=== PATIENT | male | born 1935 | race Caucasian/White ===

== ENCOUNTER 2016-09-05 13:46 | Inpatient (IN) | payer MEDICARE, OTHER ==
[2016-09-05] MEDS ORDERED: SODIUM CHLORIDE 0.9% 1,000 ML IV STA (13:59)
[2016-09-05] MEDS ORDERED: PANTOPRAZOLE 40 MG/10 ML VIAL IVP STA (13:59)
--- NOTE | 2016-09-05 14:01 | ED ---
General Adult HPI - General Chief complaint: GI Bleed Stated complaint: GI bleed, vomiting blood Time Seen by Provider: 09/05/16 13:52 Source: patient, EMS, RN notes reviewed Mode of arrival: EMS Limitations: no limitations - History of Present Illness Initial comments: Patient is a pleasant 81-year-old male presenting to the emergency department with coffee-ground emesis. Patient is a poor historian. Symptoms onset was yesterday and continued today. Patient admits to having some fatigue however states this is chronic and unchanged. No dyspnea. No weakness. Patient may have had similar symptoms around 10 years ago. Patient denies taking any blood thinners. - Related Data Home Medications Medication Instructions Recorded Confirmed Atorvastatin [Lipitor] 10 mg PO DAILY 04/01/15 09/05/16 Aspirin EC [Ecotrin Low Dose] 81 mg PO DAILY 10/16/15 09/05/16 Cholecalciferol [Vitamin D3] 1,000 unit PO DAILY 10/16/15 09/05/16 Multivitamins, Thera [Multivitamin] 1 tab PO DAILY 10/16/15 09/05/16 Albuterol Nebulized [Ventolin 2.5 mg INHALATION RT-QID PRN 04/10/16 09/05/16 Nebulized] [place]-3 Fatty Acids/Fish Oil [Fish 1 cap PO DAILY 05/23/16 09/05/16 Oil 1,000 mg Softgel] EPINEPHrine [Epipen 2-Lorenzo] 0.3 mg IM ONCE PRN 09/05/16 09/05/16 Ipratropium-Albuterol Nebulize 3 ml INHALATION RT-TID 09/05/16 09/05/16 [Duoneb 0.5 mg-3 mg/3 ml Soln] LORazepam [Ativan] 0.5 mg PO BID 09/05/16 09/05/16 Omeprazole [PriLOSEC] 20 mg PO DAILY 09/05/16 09/05/16 amLODIPine [Norvasc] 5 mg PO DAILY 09/05/16 09/05/16 traMADol HCl [Ultram] 50 mg PO Q6H PRN 09/05/16 09/05/16 Previous Rx's Medication Instructions Recorded Tamsulosin [Flomax] 0.4 mg PO HS cap.er.24h 10/19/15 Allergies Allergy/AdvReac Type Severity Reaction Status Date / Time Penicillins Allergy Rash/Hives Verified 09/05/16 14:44 Review of Systems ROS Statement: Those systems with pertinent positive or pertinent negative responses have been documented in the HPI. ROS Other: All systems not noted in ROS Statement are negative. Constitutional: Denies: fever Eyes: Denies: eye pain ENT: Denies: ear pain Respiratory: Denies: cough, dyspnea Cardiovascular: Denies: chest pain Endocrine: Reports: fatigue Gastrointestinal: Reports: other (Coffee-ground emesis) Genitourinary: Denies: dysuria Musculoskeletal: Denies: back pain Skin: Denies: rash Neurological: Denies: weakness Past Medical History Past Medical History: Coronary Artery Disease (CAD), CVA/TIA, Dementia, GERD/ Reflux, Hyperlipidemia, Hypertension, Prostate Disorder Additional Past Medical History / Comment(s): brain anuersym, ,, CVA with right- sided weakness, GE reflux, dementia, metobolic encephalopathy, difficulty walking,. MEDS NEED TO BE CRUSHED History of Any Multi-Drug Resistant Organisms: None Reported Additional Past Surgical History / Comment(s): rt carotidectomy, brain surgery Past Anesthesia/Blood Transfusion Reactions: No Reported Reaction Past Psychological History: No Psychological Hx Reported Additional Psychological History / Comment(s): dementia Smoking Status: Former smoker Past Alcohol Use History: None Reported, Abuse Additional Past Alcohol Use History / Comment(s): hx of abuse Past Drug Use History: None Reported - Past Family History Father History Unknown: Yes General Exam Limitations: no limitations General appearance: alert, in no apparent distress Head exam: Present: atraumatic Eye exam: Present: normal appearance, PERRL ENT exam: Present: normal oropharynx Neck exam: Present: normal inspection Respiratory exam: Present: normal lung sounds bilaterally Cardiovascular Exam: Present: regular rate, normal rhythm GI/Abdominal exam: Present: soft. Absent: tenderness Extremities exam: Present: normal inspection Neurological exam: Present: alert Psychiatric exam: Present: normal affect, normal mood Skin exam: Absent: rash Course Vital Signs 09/05/16 09/05/16 09/05/16 13:47 14:20 15:00 Temperature 98.2 F Pulse Rate 97 95 96 Respiratory 18 16 16 Rate Blood Pressure 151/78 152/73 135/71 O2 Sat by Pulse 89 L 91 L 92 L Oximetry EKG Findings - EKG Comments: EKG Findings:: Normal sinus rhythm and 94. Normal intervals. Left axis. Left anterior fascicular block. Inferior Q waves. No acute ST change. Medical Decision Making - Medical Decision Making Patient reevaluated and resting comfortably in bed. Patient and family updated on results and plan. Case discussed in detail with Dr. Valencia, who will admit for Dr. Balbuena. - Lab Data Result diagrams: 09/05/16 14:13 09/05/16 14:13 Lab Results 09/05/16 09/05/16 09/05/16 Range/Units 14:13 14:13 14:13 WBC 16.6 H (3.8-10.6) k/uL RBC 5.15 (4.30-5.90) m/uL Hgb 14.5 (13.0-17.5) gm/dL Hct 45.4 (39.0-53.0) % MCV 88.1 (80.0-100.0) fL MCH 28.2 (25.0-35.0) pg MCHC 32.0 (31.0-37.0) g/dL RDW 14.0 (11.5-15.5) % Plt Count 221 (150-450) k/uL Neutrophils % 91 % Lymphocytes % 4 % Monocytes % 4 % Eosinophils % 1 % Basophils % 0 % Neutrophils # 15.1 H (1.3-7.7) k/uL Lymphocytes # 0.6 L (1.0-4.8) k/uL Monocytes # 0.6 (0-1.0) k/uL Eosinophils # 0.1 (0-0.7) k/uL Basophils # 0.0 (0-0.2) k/uL PT (9.0-12.0) sec INR (<1.1) APTT (22.0-30.0) sec Sodium 138 (137-145) mmol/L Potassium 4.5 (3.5-5.1) mmol/L Chloride 101 (98-107) mmol/L Carbon Dioxide 24 (22-30) mmol/L Anion Gap 13 mmol/L BUN 34 H (9-20) mg/dL Creatinine 0.96 (0.66-1.25) mg/dL Est GFR (MDRD) Af Amer >60 (>60 ml/min/1.73 sqM) Est GFR (MDRD) Non-Af >60 (>60 ml/min/1.73 sqM) Glucose 158 H (74-99) mg/dL Calcium 9.3 (8.4-10.2) mg/dL Total Bilirubin 1.3 (0.2-1.3) mg/dL AST 17 (17-59) U/L ALT 24 (21-72) U/L Alkaline Phosphatase 78 (38-126) U/L Total Creatine Kinase 51 L (55-170) U/L CK-MB (CK-2) 1.1 (0.0-2.4) ng/mL CK-MB (CK-2) Rel Index 2.2 Troponin I 0.018 (0.000-0.034) ng/mL Total Protein 7.4 (6.3-8.2) g/dL Albumin 4.1 (3.5-5.0) g/dL 09/05/16 Range/Units 14:13 WBC (3.8-10.6) k/uL RBC (4.30-5.90) m/uL Hgb (13.0-17.5) gm/dL Hct (39.0-53.0) % MCV (80.0-100.0) fL MCH (25.0-35.0) pg MCHC (31.0-37.0) g/dL RDW (11.5-15.5) % Plt Count (150-450) k/uL Neutrophils % % Lymphocytes % % Monocytes % % Eosinophils % % Basophils % % Neutrophils # (1.3-7.7) k/uL Lymphocytes # (1.0-4.8) k/uL Monocytes # (0-1.0) k/uL Eosinophils # (0-0.7) k/uL Basophils # (0-0.2) k/uL PT 12.1 H (9.0-12.0) sec INR 1.2 (<1.1) APTT 25.3 (22.0-30.0) sec Sodium (137-145) mmol/L Potassium (3.5-5.1) mmol/L Chloride (98-107) mmol/L Carbon Dioxide (22-30) mmol/L Anion Gap mmol/L BUN (9-20) mg/dL Creatinine (0.66-1.25) mg/dL Est GFR (MDRD) Af Amer (>60 ml/min/1.73 sqM) Est GFR (MDRD) Non-Af (>60 ml/min/1.73 sqM) Glucose (74-99) mg/dL Calcium (8.4-10.2) mg/dL Total Bilirubin (0.2-1.3) mg/dL AST (17-59) U/L ALT (21-72) U/L Alkaline Phosphatase (38-126) U/L Total Creatine Kinase (55-170) U/L CK-MB (CK-2) (0.0-2.4) ng/mL CK-MB (CK-2) Rel Index Troponin I (0.000-0.034) ng/mL Total Protein (6.3-8.2) g/dL Albumin (3.5-5.0) g/dL Disposition Clinical Impression: Upper GI hemorrhage Disposition: ADMITTED IP TO THIS HOSP
[2016-09-05 14:32] LABS: Basophils % (A) 0 %; CH 29.1; CHCM 33.1; Eosinophils # (A) 0.1 k/uL (0-0.7); Eosinophils % (A) 1 %; HCT 45.4 % (39.0-53.0); HDW 2.37; HGB 14.5 gm/dL (13.0-17.5); INR 1.2 (<1.1); Luc # (Auto) 0.15; Luc % (Auto) 1; Lymphocytes # (A) 0.6 k/uL (1.0-4.8); Lymphocytes % (A) 4 %; MCH 28.2 pg (25.0-35.0); MCV 88.1 fL (80.0-100.0); Mean Platelet Volume 7.6; Monocytes # (A) 0.6 k/uL (0-1.0); Monocytes % (A) 4 %; Neutrophils # (A) 15.1 k/uL (1.3-7.7); Neutrophils % (A) 91 %; Partial Thromboplastin Time 25.3 sec (22.0-30.0); Prothrombin Time 12.1 sec (9.0-12.0); RBC 5.15 m/uL (4.30-5.90); WBC 16.6 k/uL (3.8-10.6); WBC (Perox) 17.33
[2016-09-05 14:37] LABS: ALT 24 U/L (21-72); AST 17 U/L (17-59); Alkaline Phosphatase 78 U/L (38-126); Anion Gap 13 mmol/L; Blood Urea Nitrogen 34 mg/dL (9-20); Calcium 9.3 mg/dL (8.4-10.2); Carbon Dioxide 24 mmol/L (22-30); Chloride 101 mmol/L (98-107); Glucose 158 mg/dL (74-99); Non-African American GFR(MDRD) >60 (>60 ml/min/1.73 sqM); Potassium 4.5 mmol/L (3.5-5.1); Sodium 138 mmol/L (137-145); Total Bilirubin 1.3 mg/dL (0.2-1.3); Total Protein 7.4 g/dL (6.3-8.2)
[2016-09-05 15:01] LABS: Creatine Kinase MB 1.1 ng/mL (0.0-2.4); Troponin I 0.018 ng/mL (0.000-0.034)
[2016-09-05] MEDS ORDERED: NALOXONE 0.4 MG/ML 1 ML VIAL IV PRN (16:02)
[2016-09-05] MEDS: SODIUM CHLORIDE 0.9% 1,000 ML IV SCH ×2 (17:16→23:13)
[2016-09-05] MEDS ORDERED: ALBUTEROL NEBULIZED 2.5 MG/3 ML INHALATION PRN (17:18)
[2016-09-05] MEDS ORDERED: traMADol 50 MG TAB PO PRN (17:18)
[2016-09-05] MEDS ORDERED: ONDANSETRON 4 MG/2 ML VIAL IVP PRN (17:18)
--- NOTE | 2016-09-05 17:23 | P.HPIM ---
History of Present Illness H&P Date: 09/05/16 81-year-old gentleman with history of a GI bleed who underwent a upper and lower endoscopy in May 2016 comes in the hospital with the episodes of coffee-ground emesis 2 days. Most of the history is obtained from chart review and from the ER physician. Patient's family was not at bedside. Patient apparently had 4 episodes of coffee-ground emesis at this time denies having any nausea vomiting, chest pain, urinary issues. Patient main complaint is abdominal pain epigastric in region. Nonradiating. Patient's last upper endoscopy revealed mild gastritis biopsy rule out results were negative for H. pylori patient was maintained on omeprazole 20 mg by mouth daily. Patient's hemoglobin is greater than 14 g per DL and is stable. Review of Systems All systems: negative (Noted on HPI) Past Medical History Past Medical History: Coronary Artery Disease (CAD), CVA/TIA, Dementia, GERD/ Reflux, Hyperlipidemia, Hypertension, Prostate Disorder Additional Past Medical History / Comment(s): brain anuersym, ,, CVA with right- sided weakness, GE reflux, dementia, metobolic encephalopathy, difficulty walking,. MEDS NEED TO BE CRUSHED History of Any Multi-Drug Resistant Organisms: None Reported Additional Past Surgical History / Comment(s): rt carotidectomy, brain surgery Past Anesthesia/Blood Transfusion Reactions: No Reported Reaction Past Psychological History: No Psychological Hx Reported Additional Psychological History / Comment(s): dementia Smoking Status: Former smoker Past Alcohol Use History: None Reported, Abuse Additional Past Alcohol Use History / Comment(s): hx of abuse Past Drug Use History: None Reported - Past Family History Father History Unknown: Yes Medications and Allergies Home Medications Medication Instructions Recorded Confirmed Type Atorvastatin [Lipitor] 10 mg PO DAILY 04/01/15 09/05/16 History Aspirin EC [Ecotrin Low Dose] 81 mg PO DAILY 10/16/15 09/05/16 History Cholecalciferol [Vitamin D3] 1,000 unit PO DAILY 10/16/15 09/05/16 History Multivitamins, Thera [Multivitamin] 1 tab PO DAILY 10/16/15 09/05/16 History Albuterol Nebulized [Ventolin 2.5 mg INHALATION RT-QID PRN 04/10/16 09/05/16 History Nebulized] [place]-3 Fatty Acids/Fish Oil [Fish 1 cap PO DAILY 05/23/16 09/05/16 History Oil 1,000 mg Softgel] EPINEPHrine [Epipen 2-Lorenzo] 0.3 mg IM ONCE PRN 09/05/16 09/05/16 History Ipratropium-Albuterol Nebulize 3 ml INHALATION RT-TID 09/05/16 09/05/16 History [Duoneb 0.5 mg-3 mg/3 ml Soln] LORazepam [Ativan] 0.5 mg PO BID 09/05/16 09/05/16 History Omeprazole [PriLOSEC] 20 mg PO DAILY 09/05/16 09/05/16 History amLODIPine [Norvasc] 5 mg PO DAILY 09/05/16 09/05/16 History traMADol HCl [Ultram] 50 mg PO Q6H PRN 09/05/16 09/05/16 History Allergies Allergy/AdvReac Type Severity Reaction Status Date / Time Penicillins Allergy Rash/Hives Verified 09/05/16 14:44 Physical Exam Vitals: Vital Signs Temp Pulse Resp BP Pulse Ox 09/05/16 16:24 98.0 F 85 16 134/87 93 L Patient is alert to self Neck is supple no JVD Head HEENT atraumatic normocephalic pupils equal round reactive light neck on admission. Lungs good air movement no rhonchi or wheezing clear to auscultation Heart S1-S2 heard no murmurs appreciated regular rate and rhythm Abdomen is diffusely tender to palpation predominantly in the epigastric region no flank tenderness Lower extremity is no edema noted Neuro moves all 4 extremity is. Results CBC & Chem 7: 09/05/16 14:13 09/05/16 14:13 Assessment and Plan Plan: Suspected upper GI bleed in a patient with the history of GI bleed GERD History of hypertension Dyslipidemia BPH Anxiety Dementia Plan Patient recently had an upper endoscopy will leave the patient on clear liquid diet IV fluids. Continue IV Protonix. Patient's hemoglobin is stable and does not have any further episodes after discussion with gastric neurology will likely discharge the patient in the next 24 hours otherwise patient may need another repeat endoscopy.
[2016-09-05] MEDS: LORazepam 0.5 MG TAB PO SCH (21:14)
[2016-09-05] MEDS: TAMSULOSIN 0.4 MG CAP.ER.24H PO SCH (21:14)
[2016-09-05] MEDS: IPRATROPIUM-ALBUTEROL 3 ML NEB INHALATION SCH (21:24)
[2016-09-05 23:01] LABS: Basophils % (A) 0 %; CH 29.1; Eosinophils % (A) 0 %; HCT 41.3 % (39.0-53.0); HDW 2.36; HGB 13.7 gm/dL (13.0-17.5); Luc # (Auto) 0.23; Luc % (Auto) 2; Lymphocytes % (A) 7 %; MCH 29.4 pg (25.0-35.0); MCHC 33.2 g/dL (31.0-37.0); MCV 88.7 fL (80.0-100.0); Mean Platelet Volume 8.1; Monocytes # (A) 0.5 k/uL (0-1.0); Monocytes % (A) 3 %; Neutrophils # (A) 13.6 k/uL (1.3-7.7); Neutrophils % (A) 89 %; RBC 4.65 m/uL (4.30-5.90); WBC 15.4 k/uL (3.8-10.6)
[2016-09-06] MEDS: IPRATROPIUM-ALBUTEROL 3 ML NEB INHALATION SCH ×3 (07:30→19:45)
[2016-09-06 08:03] LABS: Basophils # (A) 0.1 k/uL (0-0.2); Basophils % (A) 1 %; CH 28.8; CHCM 31.6; Eosinophils % (A) 0 %; HCT 39.6 % (39.0-53.0); HDW 2.29; HGB 12.6 gm/dL (13.0-17.5); Luc # (Auto) 0.26; Luc % (Auto) 2; Lymphocytes # (A) 1.1 k/uL (1.0-4.8); Lymphocytes % (A) 10 %; MCH 29.2 pg (25.0-35.0); MCHC 31.9 g/dL (31.0-37.0); MCV 91.4 fL (80.0-100.0); Mean Platelet Volume 8.3; Monocytes # (A) 0.4 k/uL (0-1.0); Monocytes % (A) 4 %; Neutrophils # (A) 9.1 k/uL (1.3-7.7); Neutrophils % (A) 83 %; RBC 4.33 m/uL (4.30-5.90); RDW 13.9 % (11.5-15.5); WBC 10.9 k/uL (3.8-10.6); WBC (Perox) 11.13
[2016-09-06 08:22] LABS: ALT 20 U/L (21-72); AST 16 U/L (17-59); Alkaline Phosphatase 59 U/L (38-126); Anion Gap 11 mmol/L; Blood Urea Nitrogen 38 mg/dL (9-20); Calcium 8.8 mg/dL (8.4-10.2); Carbon Dioxide 23 mmol/L (22-30); Chloride 107 mmol/L (98-107); Glucose 108 mg/dL (74-99); Non-African American GFR(MDRD) >60 (>60 ml/min/1.73 sqM); Sodium 141 mmol/L (137-145); Total Protein 6.2 g/dL (6.3-8.2)
[2016-09-06 08:35] LABS: Potassium 4.2 mmol/L (3.5-5.1)
--- NOTE | 2016-09-06 09:11 | P.CONS ---
History of Present Illness - Reason for Consult Consult date: 09/06/16 Coffee-ground emesis Requesting physician: Rick Medina - History of Present Illness 81-year-old gentleman patient Dr. Balbuena past medical history dementia, CAD, CVA with right-sided weakness, Harris's esophagus, hyperlipidemia, hypertension , brain aneurysm, and diverticulosis. History obtained from nursing staff and medical records as he is unable to provide history. Presents with multiple episodes of coffee-ground emesis. He was evaluated by the GI service in regards to GI bleed anemia hemoglobin 7 range with bloody stools back in May 2016. At that time he underwent EGD colonoscopy evaluation with findings of segment of Harris's esophagus duodenitis and stridorous. Biopsies negative for H. pylori. Esophagus biopsy chronic inflammation with intestinal metaplasia consistent with Harris change no dysplasia or malignancy. Colonoscopy identified diverticulosis however prep was poor no obvious pathology or bleeding identified. Admission white count 15 currently 10. Hemoglobin 14.5 currently 12.6. No recurrent episodes of coffee ground emesis admission. Afebrile. No witnessed episodes of hematochezia or melena. Review of Systems Obtained from nursing staff and medical records Constitutional: Denies fever, chills, sweats, weight gain, or loss. HEENT: Negative for migraines, blurred vision or loss, earaches, drainage, tinnitus, oral mucosal lesions, dysphagia, or odynophagia. Cardiac: CAD. Hyperlipidemia. Hypertension. Negative for chest pain, arrhythmias, or palpitation. Respiratory: Pneumonia. Negative for shortness of breath, hemoptysis, cough, or sputum production. Gastrointestinal: See HPI for pertinent findings. Genitourinary: Prostate hypertrophy. Negative for hematuria, urgency, frequency , polyuria, dysuria, or penile discharge. Musculoskeletal: Negative for muscle aches, swelling, arthritis, and arthralgias. Neurologic: Brain aneurysm trauma CVA with right-sided weakness. Endocrine: Negative for thyroid problems. Skin: Negative for rash or itching. Psychiatric: Dementia. Negative history for depression and anxiety ROS unobtainable: due to mental status (See HPI) All systems: negative Past Medical History Past Medical History: Coronary Artery Disease (CAD), CVA/TIA, Dementia, GERD/ Reflux, Hyperlipidemia, Hypertension, Pneumonia, Prostate Disorder Additional Past Medical History / Comment(s): brain anuersym(HAD SX AT [facility] IN [place], CVA with right-sided weakness(dominant side) has memory problems, some loss of peripheral vision( stated some came back), has difficulty getting out what he wants to say at time. can print with lt hand, walks w/cane or walker. hx falls, GE reflux, dementia, metobolic encephalopathy, difficulty walking, HIATAL HERNIA, BARRETTS ESOPHAGUS GASTRITIS PER EGD/COLONOSCOPY, HAS SHINGLE VACCINE-FEW YEARS AGO/UNABLE TO VERIFY DATE-OFFICE CLOSED ,constipation. History of Any Multi-Drug Resistant Organisms: None Reported Past Surgical History: Adenoidectomy, Tonsillectomy Additional Past Surgical History / Comment(s): rt carotidectomy, brain surgery, EGD W/ BX-NEG/COLONOSCOPY, RT ANKLE SX RESET D/R BREAK Past Anesthesia/Blood Transfusion Reactions: No Reported Reaction Past Psychological History: No Psychological Hx Reported Additional Psychological History / Comment(s): pt lives at home with his floridalma. has 1 stp to get up porch and 1 step into home. house has 2 levels(12 steps up and 12 steps to basement. stated he takes the stairs well-he hold railing. has cane/walker and handicapped shower. no service in past. is a retired dentist. Smoking Status: Former smoker Past Alcohol Use History: Occasional Additional Past Alcohol Use History / Comment(s): stated that pt may have one vodka/tonic occ Past Drug Use History: None Reported - Past Family History Father History Unknown: Yes Family Medical History: Myocardial Infarction ([place]) Additional Family Medical History / Comment(s): in his 70's Mother Family Medical History: CVA/TIA, Dementia Additional Family Medical History / Comment(s): at age 94 or 95 Medications and Allergies Home Medications Medication Instructions Recorded Confirmed Type Atorvastatin [Lipitor] 10 mg PO DAILY 04/01/15 09/05/16 History Aspirin EC [Ecotrin Low Dose] 81 mg PO DAILY 10/16/15 09/05/16 History Cholecalciferol [Vitamin D3] 1,000 unit PO DAILY 10/16/15 09/05/16 History Multivitamins, Thera [Multivitamin] 1 tab PO DAILY 10/16/15 09/05/16 History Albuterol Nebulized [Ventolin 2.5 mg INHALATION RT-QID PRN 04/10/16 09/05/16 History Nebulized] [place]-3 Fatty Acids/Fish Oil [Fish 1 cap PO DAILY 05/23/16 09/05/16 History Oil 1,000 mg Softgel] EPINEPHrine [Epipen 2-Lorenzo] 0.3 mg IM ONCE PRN 09/05/16 09/05/16 History Ipratropium-Albuterol Nebulize 3 ml INHALATION RT-TID 09/05/16 09/05/16 History [Duoneb 0.5 mg-3 mg/3 ml Soln] LORazepam [Ativan] 0.5 mg PO BID 09/05/16 09/05/16 History Omeprazole [PriLOSEC] 20 mg PO DAILY 09/05/16 09/05/16 History amLODIPine [Norvasc] 5 mg PO DAILY 09/05/16 09/05/16 History traMADol HCl [Ultram] 50 mg PO Q6H PRN 09/05/16 09/05/16 History Allergies Allergy/AdvReac Type Severity Reaction Status Date / Time Penicillins Allergy Rash/Hives Verified 09/05/16 14:44 Physical Exam Vitals: Vital Signs Temp Pulse Pulse Pulse Resp BP BP 09/06/16 07:43 80 09/06/16 07:30 76 09/06/16 07:00 98.4 F 73 18 138/60 09/05/16 23:00 98 F 80 16 123/72 09/05/16 21:38 82 09/05/16 21:25 82 09/05/16 17:29 98.1 F 83 17 142/67 09/05/16 16:24 98.0 F 85 16 134/87 Pulse Ox 09/06/16 07:43 09/06/16 07:30 09/06/16 07:00 91 L 09/05/16 23:00 93 L 09/05/16 21:38 09/05/16 21:25 09/05/16 17:29 90 L 09/05/16 16:24 93 L Intake and Output 09/05/16 09/06/16 09/06/16 22:59 06:59 14:59 Intake Total 1035 Output Total 425 Balance 610 Intake: IV 1035 Sodium Chloride 0.9% 1, 1035 000 ml @ 115 mls/hr IV . Q8H42M [facility] Rx#:[id number] Output: Urine 425 Other: Voiding Method Urinal Incontinent General appearance: The patient is alert, in no acute distress confused. HET: Head is normocephalic and atraumatic. Pupils are equal and reactive. Oropharynx is clear without lesions. Neck: Supple without lymphadenopathy. Trachea midline. Heart: S1 S2. Regular rate and rhythm. Lungs: No crackles or wheezes are heard. Abdomen: Soft, nontender, nondistended with bowel sounds. No peritoneal signs. No palpable organomegaly or masses. Extremities: Normal skin color and turgor. No cyanosis, rash, ulceration, clubbing, or edema. Radial and pedal pulses are 2/4 bilaterally. Neurological: No focal deficits. Strength and sensation are grossly intact. Results CBC & Chem 7: 09/06/16 07:41 09/06/16 07:41 Labs: Abnormal Lab Results - Last 24 Hours (Table) 09/05/16 09/06/16 09/06/16 Range/Units 22:48 07:41 07:41 WBC 15.4 H 10.9 H (3.8-10.6) k/uL Hgb 12.6 L (13.0-17.5) gm/dL Neutrophils # 13.6 H 9.1 H (1.3-7.7) k/uL BUN 38 H (9-20) mg/dL Glucose 108 H (74-99) mg/dL AST 16 L (17-59) U/L ALT 20 L (21-72) U/L Total Protein 6.2 L (6.3-8.2) g/dL Albumin 3.3 L (3.5-5.0) g/dL Assessment and Plan (1) Coffee ground emesis Status: Acute (2) Upper GI hemorrhage Status: Acute Plan: 1. We'll proceed with EGD evaluation today. Continue with IV Protonix. CBC monitoring. The vermin exterminator has discussed the risks, benefits and alternative therapies for the above-mentioned procedure and for both sedation/analgesia as well as necessary blood product administration, if indicated, as they pertain to this patient. The patient's spouse has indicated understanding and acceptance of the risks and procedures discussed. Thank you for this kind referral and the opportunity to participate in the care of your patient. This consultation was discussed with Dr. Land. The impression and plan of care have been directed as dictated.
[2016-09-06] MEDS: PANTOPRAZOLE 40 MG/10 ML VIAL IV SCH (09:22)
[2016-09-06] MEDS: ATORVASTATIN 10 MG TAB PO SCH (09:23)
[2016-09-06] MEDS: amLODIPine 5 MG TAB PO SCH (09:23)
[2016-09-06] MEDS: SODIUM CHLORIDE 0.9% 1,000 ML IV SCH ×2 (09:23→18:06)
[2016-09-06] MEDS: LORazepam 0.5 MG TAB PO SCH ×2 (09:23→22:29)
[2016-09-06] MEDS: ASPIRIN 81 MG CHEW PO SCH ×2 (09:23→09:31)
[2016-09-06] MEDS ORDERED: PROPOFOL 10 MG/ML 20 ML VIAL IV ONE (14:23)
[2016-09-06] MEDS ORDERED: IV FLUID CONTINUATION 400 ML IV ONE (14:29)
[2016-09-06 14:51] VITALS: BMI 22.2
--- NOTE | 2016-09-06 15:21 | P.PCN ---
Date of Procedure: 09/06/16 Procedure(s) Performed: Procedure: Esophagogastroduodenoscopy and biopsy. Preoperative diagnosis: Upper GI bleeding. Postoperative diagnosis: 1. Hiatal hernia and large Harris's segment. 2. Benign appearing, wide ulcer in the Harris's segment close to the hiatal hernia covered with white exudate with no evidence of bleeding. 3. Gastritis with no ulcers or bleeding. Preparation sedation: Was provided by anesthesia. Brief clinical history: The patient is a 81-year-old male with past medical history dementia, CAD, CVA with right-sided weakness, Harris's esophagus, hyperlipidemia, hypertension, brain aneurysm, and diverticulosis. He Presented with multiple episodes of coffee-ground emesis. He was evaluated by our service in May 2016 for to GI bleeding and anemia with a hemoglobin in the 7 range with bloody stools. At that time I performed an EGD and colonoscopy with findings of a segment of Harris's esophagus, gastritis and duodenitis Biopsies negative for H. pylori. Esophagus biopsy chronic inflammation with intestinal metaplasia consistent with Harris's no dysplasia or malignancy. Colonoscopy identified diverticulosis however prep was poor no obvious pathology or bleeding identified. His admission white count this time was 15, currently 10. Hemoglobin 14.5 currently 12.6. No recurrent episodes of coffee ground emesis admission. Afebrile. No witnessed episodes of hematochezia or melena. The details are summarized in the history and physical and dictated consultation. Procedure: With the patient on his left lateral decubitus position and after informed consent and adequate sedation, I passed the Olympus-GIF 160 video upper endoscope through the cricopharyngeus down the esophagus. The rin-GE junction was around 30 cm from the incisors and the tubular esophagus continued for another 7-8 cm then there was a sliding 2-3 cm hiatal hernia. No obvious pathology was noted in the esophagus proximal or distal to the rin-GE junction. There was a benign-appearing, wide ulcer in the Harris's segment close to the hiatal hernia convert with white exudate with no evidence of bleeding. The endoscope was then passed into the stomach which was insufflated with air and inspected in detail including the retroflex view in the cardia. There was minimal mottling and erythema in the antrum and there was edema and friability of the folds in the body of the stomach but there were no ulcers or erosions. Pyloric channel did not show any ulcers. Duodenal bulb, post bulbar area and descending duodenum showed minimal erythema but no ulcers, erosions or bleeding. I obtained biopsies from the esophageal ulcer then the endoscope was withdrawn. The patient tolerated the procedure well. Plan: The patient was reassured. Discussed with his . We will keep nothing by mouth for a few hours then allow clear liquid diet. I anticipate adding Carafate suspension to his regimen. We will await the biopsy results and make further planning.
--- NOTE | 2016-09-06 17:14 | P.PN ---
Subjective 81-year-old gentleman with history of a GI bleed who underwent a upper and lower endoscopy in May 2016 comes in the hospital with the episodes of coffee-ground emesis 2 days. Most of the history is obtained from chart review and from the ER physician. Patient's family was not at bedside. Patient apparently had 4 episodes of coffee-ground emesis at this time denies having any nausea vomiting, chest pain, urinary issues. Patient main complaint is abdominal pain epigastric in region. Nonradiating. Patient's last upper endoscopy revealed mild gastritis biopsy rule out results were negative for H. pylori patient was maintained on omeprazole 20 mg by mouth daily. Patient's hemoglobin is greater than 14 g per DL and is stable. 09/06/2016 patient's hemoglobin was 10.4 has not had anymore episodes today. Patient's was at bedside stated that he had a large bout of black emesis while at home. pt denies having any chest pain, difficulty breathing, nausea, vomiting, diarrhea. Objective - Vital Signs Vital signs: Vital Signs Temp 98.0 F 09/06/16 15:00 Pulse 73 09/06/16 15:00 Resp 16 09/06/16 15:00 BP 140/62 09/06/16 15:00 Pulse Ox 93 L 09/06/16 15:00 Intake & Output 09/05/16 09/06/16 09/06/16 18:59 06:59 18:59 Intake Total 1035 1020 Output Total 425 Balance 610 1020 Weight 68.3 kg Intake: IV 1035 1020 Sodium Chloride 0.9% 1, 1035 920 000 ml @ 115 mls/hr IV . Q8H42M [facility] Rx#:[id number] Output: Urine 425 Other: Voiding Method Urinal Incontinent - Exam patient is alert to self answer some questions appropriately. neck is supple no JVD Head atraumatic normocephalic pupils equal round reactive to light and accommodation Patient is alert to self answer some questions appropriately Lungs good air movement clear to auscultation no rhonchi or wheezing Chest S1-S2 are regular rate and rhythm no murmurs. Abdomen soft nontender no organomegaly U exam no focal motor or sensory deficits noted. - Labs CBC & Chem 7: 09/06/16 07:41 09/06/16 07:41 Labs: Abnormal Lab Results - Last 24 Hours (Table) 09/05/16 09/06/16 09/06/16 Range/Units 22:48 07:41 07:41 WBC 15.4 H 10.9 H (3.8-10.6) k/uL Hgb 12.6 L (13.0-17.5) gm/dL Neutrophils # 13.6 H 9.1 H (1.3-7.7) k/uL BUN 38 H (9-20) mg/dL Glucose 108 H (74-99) mg/dL AST 16 L (17-59) U/L ALT 20 L (21-72) U/L Total Protein 6.2 L (6.3-8.2) g/dL Albumin 3.3 L (3.5-5.0) g/dL Assessment and Plan Plan: Suspected upper GI bleed in a patient with the history of GI bleed GERD History of hypertension Dyslipidemia BPH Anxiety Dementia acute blood loss anemia. Plan continue ongoing care. We'll obtain iron studies folic acid and B12 level. Patient's hemoglobin is stable. Is status post endoscopy. Appears to have a nonbleeding ulcer
--- NOTE | 2016-09-06 19:49 | XR ---
EXAMINATION TYPE: XR chest 1V DATE OF EXAM: 09/06/2016 7:35 PM COMPARISON: 05/02/2016 HISTORY: Facility placement TECHNIQUE: Single frontal view of the chest is obtained. FINDINGS: There is some coarsening of interstitial markings. There is probably some mild pneumonia i n the left lower lobe. Right lung is clear. There is no heart failure. There are no hilar masses. Tho racic aorta is atheromatous. IMPRESSION: There is probably left lower lobe pneumonia that is new compared to old exam. Normal hea rt.
[2016-09-06] MEDS: TAMSULOSIN 0.4 MG CAP.ER.24H PO SCH (22:29)
[2016-09-07] MEDS: SODIUM CHLORIDE 0.9% 1,000 ML IV SCH (06:32)
[2016-09-07 07:25] LABS: Basophils # (A) 0.1 k/uL (0-0.2); Basophils % (A) 1 %; CH 28.7; CHCM 31.1; Eosinophils # (A) 0.3 k/uL (0-0.7); Eosinophils % (A) 4 %; HCT 34.8 % (39.0-53.0); HDW 2.32; HGB 10.8 gm/dL (13.0-17.5); Hypochromasia Slight; Luc # (Auto) 0.16; Luc % (Auto) 2; Lymphocytes # (A) 0.6 k/uL (1.0-4.8); Lymphocytes % (A) 9 %; MCH 28.8 pg (25.0-35.0); MCHC 31.1 g/dL (31.0-37.0); MCV 92.7 fL (80.0-100.0); Mean Platelet Volume 7.5; Monocytes # (A) 0.3 k/uL (0-1.0); Monocytes % (A) 5 %; Neutrophils # (A) 5.3 k/uL (1.3-7.7); Neutrophils % (A) 78 %; RBC 3.75 m/uL (4.30-5.90); WBC 6.7 k/uL (3.8-10.6); WBC (Perox) 6.96
[2016-09-07 07:34] LABS: ALT 23 U/L (21-72); AST 17 U/L (17-59); Alkaline Phosphatase 46 U/L (38-126); Anion Gap 8 mmol/L; Blood Urea Nitrogen 34 mg/dL (9-20); Calcium 8.4 mg/dL (8.4-10.2); Carbon Dioxide 24 mmol/L (22-30); Chloride 113 mmol/L (98-107); Glucose 100 mg/dL (74-99); Magnesium 1.9 mg/dL (1.6-2.3); Non-African American GFR(MDRD) >60 (>60 ml/min/1.73 sqM); Potassium 4.2 mmol/L (3.5-5.1); Sodium 145 mmol/L (137-145); Total Bilirubin 0.7 mg/dL (0.2-1.3); Total Protein 5.4 g/dL (6.3-8.2)
[2016-09-07] MEDS: IPRATROPIUM-ALBUTEROL 3 ML NEB INHALATION SCH ×3 (07:56→19:46)
[2016-09-07] MEDS: PANTOPRAZOLE 40 MG/10 ML VIAL IV SCH (09:35)
[2016-09-07] MEDS: ATORVASTATIN 10 MG TAB PO SCH (09:36)
[2016-09-07] MEDS: amLODIPine 5 MG TAB PO SCH (09:36)
[2016-09-07] MEDS: SUCRALFATE 1 GM TAB PO SCH ×2 (09:36→17:39)
[2016-09-07] MEDS: LORazepam 0.5 MG TAB PO SCH ×2 (09:38→22:03)
--- NOTE | 2016-09-07 10:29 | P.PN ---
Subjective Principal diagnosis: Upper GI bleed Status post EGD evaluation for upper GI bleed coffee-ground emesis with findings of large segment of Harris's with benign-appearing wide ulcer within the segment close to the hiatal hernia with no evidence of active bleeding. Feels well this morning. Tolerating liquid diet. Afebrile. No recurrence of coffee-ground emesis. Objective - Vital Signs Vital signs: Vital Signs Temp 98.2 F 09/07/16 07:00 Pulse 72 09/07/16 08:10 Resp 18 09/07/16 07:00 BP 118/58 09/07/16 07:00 Pulse Ox 93 L 09/07/16 07:00 Intake & Output 09/06/16 09/07/16 09/07/16 18:59 06:59 18:59 Intake Total 1020 920 480 Output Total 900 Balance 1020 20 480 Weight 68.3 kg Intake: IV 1020 920 Sodium Chloride 0.9% 1, 920 920 000 ml @ 115 mls/hr IV . Q8H42M [facility] Rx#:[id number] Oral 480 Output: Urine 900 Other: Voiding Method Urinal Incontinent # Voids 475 2 - Exam General appearance: The patient is alert, in no acute distress confused. HET: Head is normocephalic and atraumatic. Pupils are equal and reactive. Oropharynx is clear without lesions. Neck: Supple without lymphadenopathy. Trachea midline. Heart: S1 S2. Regular rate and rhythm. Lungs: No crackles or wheezes are heard. Abdomen: Soft, nontender, nondistended with bowel sounds. No peritoneal signs. No palpable organomegaly or masses. Extremities: Normal skin color and turgor. No cyanosis, rash, ulceration, clubbing, or edema. Radial and pedal pulses are 2/4 bilaterally. Neurological: No focal deficits. Strength and sensation are grossly intact. - Labs CBC & Chem 7: 09/07/16 07:03 09/07/16 07:03 Labs: Abnormal Lab Results - Last 24 Hours (Table) 09/07/16 09/07/16 Range/Units 07:03 07:03 RBC 3.75 L (4.30-5.90) m/uL Hgb 10.8 L (13.0-17.5) gm/dL Hct 34.8 L (39.0-53.0) % Lymphocytes # 0.6 L (1.0-4.8) k/uL Chloride 113 H (98-107) mmol/L BUN 34 H (9-20) mg/dL Glucose 100 H (74-99) mg/dL Total Protein 5.4 L (6.3-8.2) g/dL Albumin 2.7 L (3.5-5.0) g/dL Assessment and Plan (1) Coffee ground emesis Narrative/Plan: Status post EGD with findings of long segment of Harris's esophagus with benign appearing wide nonbleeding ulcer Status: Acute (2) Upper GI hemorrhage Status: Acute Plan: 1. Discharge per medicine. 2. Carafate 1 g twice daily. Omeprazole 40 mg daily. Return to GI office 1-2 weeks after discharge. Assessment and plan a care discussed with Dr. Land
[2016-09-07 12:21] LABS: Iron 23 ug/dL (49-181)
[2016-09-07 12:30] LABS: % Iron Saturation 8.9 % (20-50); Total Iron Binding Capacity 259 ug/dL (261-462)
[2016-09-07 13:13] LABS: Vitamin B12 441 pg/mL
--- NOTE | 2016-09-07 17:59 | P.PN ---
Subjective 81-year-old gentleman with history of a GI bleed who underwent a upper and lower endoscopy in May 2016 comes in the hospital with the episodes of coffee-ground emesis 2 days. Most of the history is obtained from chart review and from the ER physician. Patient's family was not at bedside. Patient apparently had 4 episodes of coffee-ground emesis at this time denies having any nausea vomiting, chest pain, urinary issues. Patient main complaint is abdominal pain epigastric in region. Nonradiating. Patient's last upper endoscopy revealed mild gastritis biopsy rule out results were negative for H. pylori patient was maintained on omeprazole 20 mg by mouth daily. Patient's hemoglobin is greater than 14 g per DL and is stable. 09/06/2016 patient's hemoglobin was 10.4 has not had anymore episodes today. Patient's was at bedside stated that he had a large bout of black emesis while at home. pt denies having any chest pain, difficulty breathing, nausea, vomiting, diarrhea. 09/07/16 Pt apparently is weak trying to get out of bed, required significant support currently lives with his . No new complaints reported. Objective - Vital Signs Vital signs: Vital Signs Temp 98.0 F 09/07/16 15:00 Pulse 76 09/07/16 16:18 Resp 18 09/07/16 15:00 BP 120/60 09/07/16 15:00 Pulse Ox 93 L 09/07/16 15:00 Intake & Output 09/06/16 09/07/16 09/07/16 18:59 06:59 18:59 Intake Total 2904 321 7453 Output Total 900 150 Balance 1020 20 1250 Weight 68.3 kg 68.3 kg Intake: IV 1020 920 920 Sodium Chloride 0.9% 1, 920 920 920 000 ml @ 115 mls/hr IV . Q8H42M [facility] Rx#:[id number] Oral 480 Output: Urine 900 150 Other: Voiding Method Urinal Urinal Incontinent Incontinent # Voids 475 2 - Exam patient is alert to self answer some questions appropriately. neck is supple no JVD Head atraumatic normocephalic pupils equal round reactive to light and accommodation Patient is alert to self answer some questions appropriately Lungs good air movement clear to auscultation no rhonchi or wheezing Chest S1-S2 are regular rate and rhythm no murmurs. Abdomen soft nontender no organomegaly Neuro : exam no focal motor or sensory deficits noted. - Labs CBC & Chem 7: 09/07/16 07:03 09/07/16 07:03 Labs: Abnormal Lab Results - Last 24 Hours (Table) 09/07/16 09/07/16 Range/Units 07:03 07:03 RBC 3.75 L (4.30-5.90) m/uL Hgb 10.8 L (13.0-17.5) gm/dL Hct 34.8 L (39.0-53.0) % Lymphocytes # 0.6 L (1.0-4.8) k/uL Chloride 113 H (98-107) mmol/L BUN 34 H (9-20) mg/dL Glucose 100 H (74-99) mg/dL Iron 23 L (49-181) ug/dL TIBC 259 L (261-462) ug/dL % Saturation 8.9 L (20-50) % Total Protein 5.4 L (6.3-8.2) g/dL Albumin 2.7 L (3.5-5.0) g/dL Assessment and Plan Plan: Suspected upper GI bleed in a patient with the history of GI bleed GERD History of hypertension Dyslipidemia BPH Anxiety Dementia acute blood loss anemia. Plan HB stable PT consult Will likely need placement.
[2016-09-07] MEDS: TAMSULOSIN 0.4 MG CAP.ER.24H PO SCH (22:03)
[2016-09-07 22:09] VITALS: RESP 16
[2016-09-08] MEDS: SODIUM CHLORIDE 0.9% 1,000 ML IV SCH ×3 (05:48→09:34)
[2016-09-08] MEDS: SUCRALFATE 1 GM TAB PO SCH (07:45)
[2016-09-08] MEDS: LORazepam 0.5 MG TAB PO SCH (07:46)
[2016-09-08] MEDS: amLODIPine 5 MG TAB PO SCH (07:46)
[2016-09-08] MEDS: ATORVASTATIN 10 MG TAB PO SCH (07:46)
[2016-09-08] MEDS: IPRATROPIUM-ALBUTEROL 3 ML NEB INHALATION SCH ×2 (07:47→13:52)
[2016-09-08 07:57] LABS: Glucose,Whole Blood 89 mg/dL (75-99)
[2016-09-08 08:13] LABS: Basophils % (A) 1 %; CH 28.7; Eosinophils # (A) 0.4 k/uL (0-0.7); Eosinophils % (A) 8 %; HDW 2.38; HGB 10.3 gm/dL (13.0-17.5); Hypochromasia Slight; Luc # (Auto) 0.18; Luc % (Auto) 3; Lymphocytes # (A) 0.8 k/uL (1.0-4.8); Lymphocytes % (A) 15 %; MCHC 31.3 g/dL (31.0-37.0); MCV 92.7 fL (80.0-100.0); Monocytes # (A) 0.3 k/uL (0-1.0); Monocytes % (A) 5 %; Neutrophils # (A) 3.9 k/uL (1.3-7.7); Neutrophils % (A) 69 %; RBC 3.56 m/uL (4.30-5.90); RDW 13.9 % (11.5-15.5); WBC 5.7 k/uL (3.8-10.6); WBC (Perox) 6.15
[2016-09-08 08:16] VITALS: BP 122/62; TEMP 97.9
[2016-09-08] MEDS ORDERED: PANTOPRAZOLE 40 MG TABLET PO SCH (09:00)
[2016-09-08] MEDS: ASPIRIN 81 MG CHEW PO SCH (09:33)
--- NOTE | 2016-09-08 12:23 | DS ---
DATE OF ADMISSION: 09/05/2016 DATE OF DISCHARGE: 09/08/2016 FINAL DIAGNOSES: 1. Acute upper gastrointestinal bleed secondary to esophageal ulcer, present on admission. 2. Harris's esophagus. 3. Multi-infarct dementia, chronic. 4. Chronic dysarthria from underlying dementia. 5. Essential hypertension. 6. Hyperlipidemia. 7. Gastroesophageal reflux disease. 8. Chronic contracture of the right arm. 9. Right-sided weakness, chronic, from old stroke. 10. Hiatal hernia. 11. History of brain aneurysm with surgery at [facility] in [place]. HOSPITAL COURSE: This patient presented with coffee-ground emesis. EGD showed Harris's esophagus and an esophageal ulcer. There was no active bleeding at that time. Patient needs assistance, is rather weak, was just able to stand here; hence, needs inpatient rehab. Currently patient is able to tolerate a diet. Able to answer some simple questions. ON EXAMINATION: ABDOMEN: Soft, nontender. Lungs are clear. Patient's hemoglobin is 10.3. CONSULTATIONS: Dr. Land from GI who did the EGD. On the day of discharge, care was discussed with the in detail. Questions were answered. DISCHARGE MEDICATIONS: 1. Lipitor 10 mg p.o. daily. 2. Vitamin D3, 1000 units p.o. daily. 3. Multivitamin 1 tablet p.o. daily. 4. Flomax 0.4 mg p.o. q.h.s. 5. Ventolin 2.5 inhalation q.i.d. p.r.n. 6. Fish oil 1000 mg daily. 7. DuoNeb t.i.d. 8. Norvasc 5 mg p.o. daily. 9. Ativan 0.5 mg p.o. b.i.d. 10. Protonix 40 mg p.o. b.i.d. 11. Carafate 1 gram p.o. b.i.d. 12. Ultram 50 mg q.6 p.r.n. Follow up with Dr. Land in one week. Follow up with Dr. Vital at [facility] on 09/09/16. Discharge planning more than 35 minutes.
[2016-09-08 13:54] VITALS: PULSE 67
== END 2016-09-08 15:00 | DRG 381 ==
LOC: EC 13:46 → 5MS5E 16:02
PROVIDERS: ADMIT Hospitalist; ATTEND Hospitalist
PROC: 0DB58ZX Excision of Esophagus, Via Natural or Artificial Opening Endoscopic, Diagnostic (ICD-10-PCS; principal; 2016-09-06 08:30)
DX: K22.11 Ulcer of esophagus with bleeding (principal); I69.351 Hemiplegia and hemiparesis following cerebral infarction affecting right dominant side; F01.50 Vascular dementia, unspecified severity, without behavioral disturbance, psychotic disturbance, mood disturbance, and anxiety; I10 Essential (primary) hypertension; E78.5 Hyperlipidemia, unspecified; F41.9 Anxiety disorder, unspecified; I25.10 Atherosclerotic heart disease of native coronary artery without angina pectoris; I69.311 Memory deficit following cerebral infarction; K21.9 Gastro-esophageal reflux disease without esophagitis; K22.70 Barrett's esophagus without dysplasia; K29.70 Gastritis, unspecified, without bleeding; K44.9 Diaphragmatic hernia without obstruction or gangrene; K57.90 Diverticulosis of intestine, part unspecified, without perforation or abscess without bleeding; N40.0 Benign prostatic hyperplasia without lower urinary tract symptoms; Z79.899 Other long term (current) drug therapy; Z82.49 Family history of ischemic heart disease and other diseases of the circulatory system; Z87.891 Personal history of nicotine dependence; Z79.82 Long term (current) use of aspirin; Z88.0 Allergy status to penicillin; R47.1 Dysarthria and anarthria
CPT/HCPCS: 36415; 43239; 71010; 80048; 80053; 82550; 82553; 82607; 82728; 83540; 83550; 83735; 84484; 85025; 85610; 85730; 86850; 86870; 86880; 86900; 86901; 86902; 88305; 93005; 94640; 94760; 96361; 96374; 99284; 99285

== ENCOUNTER 2016-09-08 22:17 | Emergency (ER) | payer MEDICARE, OTHER ==
[2016-09-08 22:32] VITALS: BP 132/63; PULSE 76; RESP 16; TEMP 96.9
--- NOTE | 2016-09-08 22:43 | ED ---
ENT HPI - General Chief complaint: ENT Stated complaint: nose bleed Time Seen by Provider: 09/08/16 22:20 Source: EMS, RN notes reviewed Mode of arrival: EMS Limitations: altered mental status - History of Present Illness Initial comments: Patient is a 81-year-old male with the chief complaint of the nosebleed. Patient was recently discharged from the emergency department for an upper GI bleed. Patient reports that soon as he was leaving the hospital he started to have a nosebleed. Patient reports that the nosebleed came and went 3 times today. Patient's daughter is concerned by the amount of blood loss. Patient did have a hemoglobin of 10 when he was discharged today. He is not on any blood thinners. Patient does have a history of dementia. Patient's daughter reports that he is no acute changes at this time. Patient denies any headache. - Related Data Home Medications Medication Instructions Recorded Confirmed Atorvastatin [Lipitor] 10 mg PO DAILY 04/01/15 09/05/16 Cholecalciferol [Vitamin D3] 1,000 unit PO DAILY 10/16/15 09/05/16 Multivitamins, Thera [Multivitamin] 1 tab PO DAILY 10/16/15 09/05/16 Albuterol Nebulized [Ventolin 2.5 mg INHALATION RT-QID PRN 04/10/16 09/05/16 Nebulized] Olympia-3 Fatty Acids/Fish Oil [Fish 1 cap PO DAILY 05/23/16 09/05/16 Oil 1,000 mg Softgel] Ipratropium-Albuterol Nebulize 3 ml INHALATION RT-TID 09/05/16 09/05/16 [Duoneb 0.5 mg-3 mg/3 ml Soln] amLODIPine [Norvasc] 5 mg PO DAILY 09/05/16 09/05/16 Previous Rx's Medication Instructions Recorded Tamsulosin [Flomax] 0.4 mg PO HS cap.er.24h 10/19/15 LORazepam [Ativan] 0.5 mg PO BID #20 tablet 09/08/16 Pantoprazole [Protonix] 40 mg PO BID tablet. 09/08/16 Sucralfate [Carafate] 1 gm PO BID #60 tablet 09/08/16 traMADol HCl [Ultram] 50 mg PO Q6H PRN #14 tab 03/10/17 Allergies Allergy/AdvReac Type Severity Reaction Status Date / Time Penicillins Allergy Rash/Hives Verified 09/05/16 14:44 Review of Systems ROS Statement: Those systems with pertinent positive or pertinent negative responses have been documented in the HPI. ROS Other: All systems not noted in ROS Statement are negative. Past Medical History Past Medical History: Coronary Artery Disease (CAD), CVA/TIA, Dementia, GERD/ Reflux, Hyperlipidemia, Hypertension, Pneumonia, Prostate Disorder Additional Past Medical History / Comment(s): brain anuersym(HAD SX AT [facility] IN [place], CVA with right-sided weakness(dominant side) has memory problems, some loss of peripheral vision( stated some came back), has difficulty getting out what he wants to say at time. can print with lt hand, walks w/cane or walker. hx falls, GE reflux, dementia, metobolic encephalopathy, difficulty walking, HIATAL HERNIA, BARRETTS ESOPHAGUS GASTRITIS PER EGD/COLONOSCOPY, HAS SHINGLE VACCINE-FEW YEARS AGO/UNABLE TO VERIFY DATE-OFFICE CLOSED ,constipation. History of Any Multi-Drug Resistant Organisms: None Reported Past Surgical History: Adenoidectomy, Tonsillectomy Additional Past Surgical History / Comment(s): rt carotidectomy, brain surgery, EGD W/ BX-NEG/COLONOSCOPY, RT ANKLE SX RESET D/R BREAK Past Anesthesia/Blood Transfusion Reactions: No Reported Reaction Past Psychological History: No Psychological Hx Reported Additional Psychological History / Comment(s): pt lives at home with his floridalma. has 1 stp to get up porch and 1 step into home. house has 2 levels(12 steps up and 12 steps to basement. stated he takes the stairs well-he hold railing. has cane/walker and handicapped shower. no service in past. is a retired dentist. Smoking Status: Former smoker Past Alcohol Use History: Occasional Additional Past Alcohol Use History / Comment(s): stated that pt may have one vodka/tonic occ Past Drug Use History: None Reported - Past Family History Father History Unknown: Yes Family Medical History: Myocardial Infarction ([place]) Additional Family Medical History / Comment(s): in his 70's Mother Family Medical History: CVA/TIA, Dementia Additional Family Medical History / Comment(s): at age 94 or 95 General Exam - General Exam Comments Initial Comments: Patient is a 81-year-old male. Patient does not appear to be in any acute distress. Limitations: altered mental status General appearance: alert, in no apparent distress Head exam: Present: atraumatic, normocephalic, normal inspection Eye exam: Present: normal appearance, PERRL, EOMI. Absent: scleral icterus, conjunctival injection, periorbital swelling ENT exam: Present: normal exam, normal oropharynx, mucous membranes moist, other (left nostril bleed. bleed visualiized. ) Neck exam: Present: normal inspection. Absent: tenderness, meningismus, lymphadenopathy Respiratory exam: Present: normal lung sounds bilaterally. Absent: respiratory distress, wheezes, rales, rhonchi, stridor Cardiovascular Exam: Present: regular rate, normal rhythm, normal heart sounds. Absent: systolic murmur, diastolic murmur, rubs, gallop, clicks GI/Abdominal exam: Present: soft, normal bowel sounds. Absent: distended, tenderness, guarding, rebound, rigid Extremities exam: Present: normal inspection, full ROM, normal capillary refill. Absent: tenderness, pedal edema, joint swelling, calf tenderness Back exam: Present: normal inspection Neurological exam: Present: alert, oriented X3, CN II-XII intact Psychiatric exam: Present: normal affect, normal mood Skin exam: Present: warm, dry, intact, normal color. Absent: rash Course Vital Signs 09/08/16 22:25 Temperature 96.9 F L Pulse Rate 76 Respiratory 16 Rate Blood Pressure 132/63 O2 Sat by Pulse 94 L Oximetry Medical Decision Making - Medical Decision Making Patient is a 81-year-old male with the chief complaint of the nosebleed. Patient was recently discharged from the emergency department for an upper GI bleed. Patient reports that soon as he was leaving the hospital he started to have a nosebleed. Patient reports that the nosebleed came and went 3 times today. Patient's daughter is concerned by the amount of blood loss. Patient did have a hemoglobin of 10 when he was discharged today. He is not on any blood thinners. Patient does have a history of dementia. Patient's daughter reports that he is no acute changes at this time. Patient denies any headache. Patient given nasal clamp and nose bleed has stopped. PAtient hemoglobin waas 10.4 and is improving. Patient advised to follow up with PCP on Sunday and return if worsenign signs occur. Patient understands treatment plan and will comply. - Lab Data Result diagrams: 09/08/16 22:45 09/08/16 22:45 Lab Results 09/08/16 09/08/16 Range/Units 22:45 22:45 WBC 8.6 (3.8-10.6) k/uL RBC 3.55 L (4.30-5.90) m/uL Hgb 10.4 L (13.0-17.5) gm/dL Hct 32.1 L (39.0-53.0) % MCV 90.6 (80.0-100.0) fL MCH 29.3 (25.0-35.0) pg MCHC 32.3 (31.0-37.0) g/dL RDW 13.9 (11.5-15.5) % Plt Count 104 L (150-450) k/uL Neutrophils % 74 % Lymphocytes % 12 % Monocytes % 6 % Eosinophils % 5 % Basophils % 0 % Neutrophils # 6.3 (1.3-7.7) k/uL Lymphocytes # 1.1 (1.0-4.8) k/uL Monocytes # 0.5 (0-1.0) k/uL Eosinophils # 0.4 (0-0.7) k/uL Basophils # 0.0 (0-0.2) k/uL Sodium 141 (137-145) mmol/L Potassium 4.3 (3.5-5.1) mmol/L Chloride 106 (98-107) mmol/L Carbon Dioxide 25 (22-30) mmol/L Anion Gap 10 mmol/L BUN 24 H (9-20) mg/dL Creatinine 0.80 (0.66-1.25) mg/dL Est GFR (MDRD) Af Amer >60 (>60 ml/min/1.73 sqM) Est GFR (MDRD) Non-Af >60 (>60 ml/min/1.73 sqM) Glucose 110 H (74-99) mg/dL Calcium 8.7 (8.4-10.2) mg/dL Disposition Clinical Impression: Nosebleed Disposition: HOME SELF-CARE Condition: Good Instructions: Nosebleed (ED) Additional Instructions: Patient advised to follow up with primary care provider at [facility] only. Return to the emergency department if any alarming signs or symptoms occur. Referrals: Jeffrey Balbuena DO [Primary Care Provider] - 1-2 days Time of Disposition: 23:33
[2016-09-08 23:07] LABS: Basophils % (A) 0 %; CHCM 32.2; Eosinophils # (A) 0.4 k/uL (0-0.7); Eosinophils % (A) 5 %; HCT 32.1 % (39.0-53.0); HDW 2.44; HGB 10.4 gm/dL (13.0-17.5); Luc # (Auto) 0.23; Luc % (Auto) 3; Lymphocytes # (A) 1.1 k/uL (1.0-4.8); Lymphocytes % (A) 12 %; MCH 29.3 pg (25.0-35.0); MCHC 32.3 g/dL (31.0-37.0); MCV 90.6 fL (80.0-100.0); Mean Platelet Volume 10.2; Monocytes # (A) 0.5 k/uL (0-1.0); Monocytes % (A) 6 %; Neutrophils # (A) 6.3 k/uL (1.3-7.7); Neutrophils % (A) 74 %; RBC 3.55 m/uL (4.30-5.90); RDW 13.9 % (11.5-15.5); WBC 8.6 k/uL (3.8-10.6); WBC (Perox) 8.58
[2016-09-08 23:13] LABS: Anion Gap 10 mmol/L; Blood Urea Nitrogen 24 mg/dL (9-20); Calcium 8.7 mg/dL (8.4-10.2); Carbon Dioxide 25 mmol/L (22-30); Chloride 106 mmol/L (98-107); Glucose 110 mg/dL (74-99); Non-African American GFR(MDRD) >60 (>60 ml/min/1.73 sqM); Potassium 4.3 mmol/L (3.5-5.1); Sodium 141 mmol/L (137-145)
[2016-09-08] MEDS ORDERED: OXYMETAZOLINE 0.05% NASL SPRAY 15 ML NASAL STA (23:31)
== END 2016-09-09 00:33 | disposition home or self-care (01) ==
LOC: EC 22:17
DX: R04.0 Epistaxis (principal); Z87.19 Personal history of other diseases of the digestive system; F03.90 Unspecified dementia, unspecified severity, without behavioral disturbance, psychotic disturbance, mood disturbance, and anxiety; I69.351 Hemiplegia and hemiparesis following cerebral infarction affecting right dominant side; I10 Essential (primary) hypertension; E78.5 Hyperlipidemia, unspecified; K21.9 Gastro-esophageal reflux disease without esophagitis; N42.9 Disorder of prostate, unspecified; Z79.899 Other long term (current) drug therapy; Z88.0 Allergy status to penicillin; Z87.891 Personal history of nicotine dependence
CPT/HCPCS: 36415; 80048; 85025; 99284

== ENCOUNTER 2016-11-14 08:17 | Day surgery (SDC) | payer MEDICARE, OTHER ==
[2016-11-10 14:29] VITALS: BMI 21.4
[~2016-11-14 08:17] MED LIST: LACTATED RINGERS 1,000 ML IV SCH
[2016-11-14 09:20] VITALS: TEMP 98.3
[2016-11-14] MEDS: FLURBIPROFEN 0.03% OPHTH DROPS 2.5 ML BTL OP ONE ×3 (09:23→09:41)
[2016-11-14] MEDS: PHENYLEPHRINE 10% OPHTH DROPS 5 ML BTL OP ONE ×3 (09:26→09:45)
[2016-11-14] MEDS: CYCLOPENTOLATE 1% OPHTH SOLN 2 ML BTL OP ONE ×3 (09:29→09:47)
[2016-11-14] MEDS ORDERED: PROPOFOL 10 MG/ML 20 ML VIAL IV ONE (10:04)
[2016-11-14] MEDS ORDERED: EPINEPHrine (PF) 0.5 ML in BALANCED SALT IRRIG SOLN COMB2 500 ML IRRIGATION ONE (10:06)
[2016-11-14] MEDS: BUPIVACAINE (PF) 0.75% 5 ML, LIDOCAINE 4% (PF) 5 ML, HYALURONIDASE, HUMAN RECOMB 150 UNIT MISCELLANE ONE ×6 (10:08→10:10)
[2016-11-14] MEDS: GENTAMICIN/PREDNISOL AC OPHTH OINT 3.5GM OPHTHALMIC ONE ×2 (10:08→10:17)
[2016-11-14] MEDS ORDERED: BALANCED SALT IRRIG SOLN COMB2 15 ML IRRIG.SOLN IRRIGATION ONE ×2 (10:09→10:17)
[2016-11-14] MEDS ORDERED: HYALURONATE SODIUM INTRAOCULAR 1 EACH SYRINGE (10MG/ML) INTRAOCULA ONE ×2 (10:09→10:17)
[2016-11-14] MEDS: TIMOLOL 0.5% OPHTH SOLN (PF) 0.2 ML DROPERETTE OP ONE ×2 (10:09→10:17)
[2016-11-14 10:34] VITALS: RESP 18
--- NOTE | 2016-11-14 10:34 | P.OP ---
Date of Procedure: 11/14/16 Preoperative Diagnosis: Postoperative Diagnosis: Procedure(s) Performed: PREOPERATIVE DIAGNOSIS: Cataract, right eye. POSTOPERATIVE DIAGNOSIS: Cataract, right eye. OPERATION: Phacoemulsification cataract, right eye. DESCRIPTION OF PROCEDURE: The patient was taken to the preoperative holding area. Intravenous Propofol was given so as to bring about adequate sedation. The following mixture was given for local anesthesia: 5 mL of 2% lidocaine, 5 mL of 0.75% Marcaine, and 1 mL of Wydase. Approximately 4 mL was injected in the retrobulbar space of the surgical eye. Additional 1 mL was then directed to the temporal area of the surgical eye. This was performed to allow adequate neurological block of the facial muscles. The patient was revived and then taken into the operative room. The patient was prepped and draped in the usual sterile manner for the operative eye. A lid speculum was put into position. The conjunctiva was resected back from the limbus in the 12 o'clock position. Bleeding was controlled with electrocautery. A #69 blade was then used and a half-thickness scleral incision approximately 1-mm posterior to the limbus was made on bare sclera. This was shelved in the clear cornea using a crescent knife. Next a 15-degree blade was used to make a stab incision at the 3 o' clock position at the corneolimbal interface. Keratome blade was then used and the superior wound was extended into the anterior chamber. Viscoelastic was injected into the anterior chamber and to maintain its form. Next, a cystotome was used and a continuous anterior capsulotomy was made without difficulty. Hydrodissection using a blunt cannula and BSS was performed. Phaco probe was then employed and a groove extending from 12 to 6 o'clock in the lens was created. A Gal wand was used through the stab incision so as to perform a divide and conquer technique. Next an irrigation aspiration probe was utilized and any residual cortex was removed from the eye. Again, viscoelastic was injected into the anterior chamber. An Kaushik posterior chamber lens implant was placed in the cartridge and injected into the anterior chamber without difficulty. The [employer] hook was utilized to spin the lens into position and this was again performed without any difficulty. The irrigation and aspiration probe was again employed and any residual viscoelastic was removed from the eye. Then BSS was injected into the limbal stab incision and the anterior chamber re-inflated. The conjunctiva was reapproximated using electrocautery. One drop of 0.25% Timoptic was placed over the corneal along with TobraDex ophthalmic ointment. Two sterile patches and a Shearer eye shield were taped into position. The patient was transported to the recovery room in stable condition. Implants: Pathology: none sent Condition: stable Disposition: same day Indications for Procedure: Operative Findings: Description of Procedure:
[2016-11-14 10:51] VITALS: BP 135/64; PULSE 62
== END 2016-11-14 11:02 | disposition home or self-care (01) ==
LOC: OR 08:17
PROVIDERS: ATTEND Ophthalmology
DX: H26.9 Unspecified cataract (principal); I10 Essential (primary) hypertension; E78.5 Hyperlipidemia, unspecified; N42.9 Disorder of prostate, unspecified; I69.351 Hemiplegia and hemiparesis following cerebral infarction affecting right dominant side; F03.90 Unspecified dementia, unspecified severity, without behavioral disturbance, psychotic disturbance, mood disturbance, and anxiety; Z87.891 Personal history of nicotine dependence; Z79.82 Long term (current) use of aspirin; Z79.891 Long term (current) use of opiate analgesic; Z79.899 Other long term (current) drug therapy; Z88.0 Allergy status to penicillin
CPT/HCPCS: 66984; V2632; J2001; J3470; J0171; J2704

== ENCOUNTER 2017-02-20 06:02 | Day surgery (SDC) | payer MEDICARE, OTHER ==
[2017-02-13 15:35] VITALS: BMI 21.7
[2017-02-20] MEDS ORDERED: LACTATED RINGERS 1,000 ML IV SCH (06:05)
[2017-02-20] MEDS ORDERED: LIDOCAINE 1% 20 ML VIAL (10MG/ML) FOR IV START INTRADERMA PRN (06:05)
[2017-02-20] MEDS: PHENYLEPHRINE 10% OPHTH DROPS 5 ML BTL OP ONE ×3 (06:18→06:24)
[2017-02-20] MEDS: CYCLOPENTOLATE 1% OPHTH SOLN 2 ML BTL OP ONE ×3 (06:27→06:33)
[2017-02-20] MEDS: KETOROLAC 0.5% OPHTH DROPS 3 ML BTL OP ONE ×3 (06:36→06:42)
[2017-02-20 06:37] VITALS: RESP 16; TEMP 97.8
[2017-02-20] MEDS ORDERED: PROPOFOL 10 MG/ML 20 ML VIAL IV ONE (07:35)
[2017-02-20] MEDS ORDERED: EPINEPHrine (PF) 0.5 ML in BALANCED SALT IRRIG SOLN COMB2 500 ML IRRIGATION ONE (07:37)
[2017-02-20] MEDS ORDERED: HYALURONATE SODIUM INTRAOCULAR 1 EACH SYRINGE (10MG/ML) INTRAOCULA ONE (07:49)
[2017-02-20] MEDS ORDERED: BALANCED SALT IRRIG SOLN COMB2 15 ML IRRIG.SOLN IRRIGATION ONE (07:49)
--- NOTE | 2017-02-20 08:01 | P.OP ---
Date of Procedure: 02/20/17 Preoperative Diagnosis: Postoperative Diagnosis: Procedure(s) Performed: PREOPERATIVE DIAGNOSIS: Cataract, left eye. POSTOPERATIVE DIAGNOSIS: Cataract, left eye. OPERATION: Phacoemulsification cataract, left eye. DESCRIPTION OF PROCEDURE: The patient was taken to the preoperative holding area. Intravenous Propofol was given so as to bring about adequate sedation. The following mixture was given for local anesthesia: 5 mL of 2% lidocaine, 5 mL of 0.75% Marcaine, and 1 mL of Wydase. Approximately 4 mL was injected in the retrobulbar space of the surgical eye. Additional 1 mL was then directed to the temporal area of the surgical eye. This was performed to allow adequate neurological block of the facial muscles. The patient was revived and then taken into the operative room. The patient was prepped and draped in the usual sterile manner for the operative eye. A lid speculum was put into position. The conjunctiva was resected back from the limbus in the 12 o'clock position. Bleeding was controlled with electrocautery. A #69 blade was then used and a half-thickness scleral incision approximately 1-mm posterior to the limbus was made on bare sclera. This was shelved in the clear cornea using a crescent knife. Next a 15-degree blade was used to make a stab incision at the 3 o' clock position at the corneolimbal interface. Keratome blade was then used and the superior wound was extended into the anterior chamber. Viscoelastic was injected into the anterior chamber and to maintain its form. Next, a cystotome was used and a continuous anterior capsulotomy was made without difficulty. Hydrodissection using a blunt cannula and BSS was performed. Phaco probe was then employed and a groove extending from 12 to 6 o'clock in the lens was created. A Gal wand was used through the stab incision so as to perform a divide and conquer technique. Next an irrigation aspiration probe was utilized and any residual cortex was removed from the eye. Again, viscoelastic was injected into the anterior chamber. An Kaushik posterior chamber lens implant was placed in the cartridge and injected into the anterior chamber without difficulty. The Late Nite Labsey hook was utilized to spin the lens into position and this was again performed without any difficulty. The irrigation and aspiration probe was again employed and any residual viscoelastic was removed from the eye. Then BSS was injected into the limbal stab incision and the anterior chamber re-inflated. The conjunctiva was reapproximated using electrocautery. One drop of 0.25% Timoptic was placed over the corneal along with TobraDex ophthalmic ointment. Two sterile patches and a Shearer eye shield were taped into position. The patient was transported to the recovery room in stable condition. Implants: Pathology: none sent Condition: stable Disposition: same day Indications for Procedure: Operative Findings: Description of Procedure:
[2017-02-20 08:38] VITALS: BP 155/69; PULSE 56
[2017-02-20] MEDS ORDERED: BUPIVACAINE (PF) 0.75% 5 ML, LIDOCAINE 4% (PF) 5 ML, HYALURONIDASE, HUMAN RECOMB 150 UNIT MISCELLANE ONE ×3 (23:00)
[2017-02-20] MEDS ORDERED: TIMOLOL 0.5% OPHTH SOLN (PF) 0.2 ML DROPERETTE OP ONE (23:00)
[2017-02-20] MEDS ORDERED: GENTAMICIN/PREDNISOL AC OPHTH OINT 3.5GM OPHTHALMIC ONE (23:00)
== END 2017-02-20 08:43 | disposition home or self-care (01) ==
LOC: OR 06:02
PROVIDERS: ATTEND Ophthalmology
DX: H26.9 Unspecified cataract (principal); I10 Essential (primary) hypertension; Z87.891 Personal history of nicotine dependence; Z88.0 Allergy status to penicillin; I69.351 Hemiplegia and hemiparesis following cerebral infarction affecting right dominant side; I69.328 Other speech and language deficits following cerebral infarction; K21.9 Gastro-esophageal reflux disease without esophagitis; Z79.899 Other long term (current) drug therapy; Z79.82 Long term (current) use of aspirin
CPT/HCPCS: 66984; V2632; J2001; J3470; J0171; J2704

== ENCOUNTER 2017-03-13 10:27 | Day surgery (SDC) | payer MEDICARE, OTHER ==
[2017-03-09 13:46] VITALS: BMI 21.6
[2017-03-13 10:55] VITALS: TEMP 97.6
[2017-03-13] MEDS ORDERED: GLYCOPYRROLATE 0.2 MG/ML 2 ML VIAL ONE (11:44)
[2017-03-13] MEDS ORDERED: PROPOFOL 10 MG/ML 20 ML VIAL IV ONE (11:44)
[2017-03-13] MEDS ORDERED: LIDOCAINE 1% INJ 10MG/ML (20 ML MDV) ONE (11:44)
--- NOTE | 2017-03-13 12:07 | P.PCN ---
Date of Procedure: 03/13/17 Preoperative Diagnosis: Postoperative Diagnosis: Procedure(s) Performed: Procedure: Esophagogastroduodenoscopy Preoperative diagnosis: History of Harris's esophagus, GI bleeding and anemia. Postoperative diagnosis: 1. Hiatal hernia and Harris's esophagus with healing of the previously described ulcer in the Harris's segment. 2. No other abnormalities noted or bleeding. Preparation sedation: Was provided by anesthesia. Brief clinical history: The patient is a 81-year-old male with history of Harris's esophagus. He was hospitalized in August of this year for coffee- ground emesis and anemia and he was found to have an ulcer in the Harris's segment. The biopsies were negative for malignancy. His prior upper endoscopy and colonoscopy was in May 2016. The patient had issues with anemia and drop in his blood count in September and I planned to repeat his upper endoscopy after intensive medical therapy to ascertain the healing of his ulcer. At this time he is doing well with no overt bleeding or new symptoms. Procedure: With the patient on his left lateral decubitus position and after informed consent and adequate sedation, I passed the Olympus-GIF 160 video upper endoscope through the cricopharyngeus down the esophagus. The rin-GE junction was around 30 cm from the incisors and the tubular esophagus continued for another 7-8 cm then there was a sliding 2-3 cm hiatal hernia. No obvious pathology was noted in the esophagus proximal or distal to the rin-GE junction. The endoscope was then passed into the stomach which was insufflated with air and inspected in detail including the retroflex view in the cardia. No obvious abnormalities were seen in the stomach. Pyloric channel, duodenal bulb, post bulbar area and descending duodenum appeared within normal limits. No biopsies were obtained then the endoscope was withdrawn. The patient tolerated the procedure well. Plan: The patient was reassured. Will continue current medical management and consider repeat upper endoscopy in 2-3 years depending on his overall health at that time. He will follow up with you as planned. Implants: Indications for Procedure: Operative Findings: Description of Procedure:
[2017-03-13 14:13] VITALS: BP 128/61; PULSE 57; RESP 16
== END 2017-03-13 12:55 | disposition home or self-care (01) ==
LOC: ORWHC2ENDO 10:27
DX: K22.70 Barrett's esophagus without dysplasia (principal); K44.9 Diaphragmatic hernia without obstruction or gangrene; Z87.19 Personal history of other diseases of the digestive system; K21.9 Gastro-esophageal reflux disease without esophagitis; I10 Essential (primary) hypertension; E78.5 Hyperlipidemia, unspecified; I69.351 Hemiplegia and hemiparesis following cerebral infarction affecting right dominant side; Z88.0 Allergy status to penicillin; Z79.82 Long term (current) use of aspirin; Z79.899 Other long term (current) drug therapy
CPT/HCPCS: 43235; J2001; J2704

== ENCOUNTER 2017-11-23 21:41 | Emergency (ER) | payer MEDICARE, OTHER ==
[2017-11-23 22:17] VITALS: BP 169/73; PULSE 55; RESP 18; TEMP 97.4
--- NOTE | 2017-11-23 23:04 | ED ---
Lower Extremity Injury HPI - General Source: patient, RN notes reviewed Mode of arrival: wheelchair Limitations: no limitations <Vanessa Simons - Last Filed: 11/24/17 00:14> <Camden Haas - Last Filed: 11/24/17 03:45> - General Chief Complaint: Extremity Injury, Lower Stated Complaint: Fall, Foot injury Time Seen by Provider: 11/23/17 22:51 - History of Present Illness Initial Comments: This is an 82-year-old male who presents to the emergency department with chief complaint of right foot injury. Patient is accompanied by his who contributes to the history. She states that patient is a poor historian and has a history of stroke. She states that he has decreased sensation in his right lower extremity. She states that on Sunday patient was getting ready for bed in the bathroom. She states that he fell forward and injured his right toes on the vanity. He sustained superficial abrasions to his toes and his cleaned them with hydrogen peroxide and has been keeping them bandaged. She states that because patient has decreased feeling, she would like an x-ray of his right foot and ankle. Patient denies any other injuries or trauma. Denies fever, chills, chest pain, shortness of breath, abdominal pain, nausea or vomiting, constipation or diarrhea, headache or vision changes. (Vanessa Simons) - Related Data Home Medications Medication Instructions Recorded Confirmed Cholecalciferol [Vitamin D3] 5,000 unit PO DAILY 10/16/15 11/23/17 Multivitamins, Thera [Multivitamin 1 tab PO DAILY 10/16/15 11/23/17 (formulary)] [place]-3 Fatty Acids/Fish Oil [Fish 1 cap PO DAILY 05/23/16 11/23/17 Oil 1,000 mg Softgel] Aspirin [Adult Low Dose Aspirin EC] 81 mg PO DAILY 11/10/16 11/23/17 Unknown Blood Pressure Med 11/23/17 Unknown Cholesterol Med 11/23/17 Unknown Heartburn Med 11/23/17 Allergies Allergy/AdvReac Type Severity Reaction Status Date / Time Penicillins Allergy Unknown Verified 11/23/17 22:38 Childhood Review of Systems ROS Other: All systems not noted in ROS Statement are negative. <Vanessa Simons - Last Filed: 11/24/17 00:14> ROS Other: All systems not noted in ROS Statement are negative. <WaldoCamden - Last Filed: 11/24/17 03:45> ROS Statement: Those systems with pertinent positive or pertinent negative responses have been documented in the HPI. 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 - Past Family History Father History Unknown: Yes Family Medical History: Myocardial Infarction ([place]) Additional Family Medical History / Comment(s): in his 70's Mother Family Medical History: CVA/TIA, Dementia Additional Family Medical History / Comment(s): at age 94 or 95 <Vanessa Simons - Last Filed: 11/24/17 00:14> General Exam Limitations: no limitations <Vanessa Simons - Last Filed: 11/24/17 00:14> <WaldoCamden - Last Filed: 11/24/17 03:45> - General Exam Comments Initial Comments: General: Awake and alert, well-developed; in no apparent distress. Sitting comfortably in wheelchair with at bedside. HEENT: Head atraumatic, normocephalic. Pupils are equal, round and reactive to light. Extraocular movements intact. Oropharynx moist without erythema or exudate. Neck: Supple. Normal ROM. Cardiovascular: Regular rate and rhythm. No murmurs, rubs or gallops. Chest symmetrical. Respiratory: Lungs clear to auscultation bilaterally. No wheezes, rales or rhonchi. Normal respiratory effort with no use of accessory muscles. Musculoskeletal: Normal range of motion of the right ankle. Small superficial abrasions on toes 2 through 5. There is mild surrounding erythema but otherwise appears to be healing well. Mild soft tissue swelling dorsal surface of the right foot. Pedal pulses are 2+ equal and palpable bilaterally. Skin: [place]y, warm and dry. Neurological: Alert and oriented x3. CN II-XII grossly intact. Speech is fluent and answers are appropriate. Psychiatric: Normal mood and affect. No overt signs of depression or anxiety noted. (Vanessa Simons) Vital Signs 11/23/17 22:14 Temperature 97.4 F L Pulse Rate 55 L Respiratory 18 Rate Blood Pressure 169/73 O2 Sat by Pulse 98 Oximetry Medical Decision Making - Radiology Data Radiology results: report reviewed, image reviewed <Vanessa Simons - Last Filed: 11/24/17 00:14> <Camden Haas - Last Filed: 11/24/17 03:45> - Medical Decision Making This is an 82-year-old male who presented to the emergency department for evaluation of right foot injury. Patient had a fall on Sunday and sustained abrasions to the tops of his right toes. is concerned because patient has decreased feeling in his right lower extremity. She requested x-ray of his right foot and right ankle. X-rays reveal no acute fractures or dislocations. Superficial abrasions were cleansed and new bandages placed. Return parameters were discussed with patient's . Vital signs are stable and he is in no acute distress. He will be discharged home at this time. All questions answered. (Vanessa Simons) I saw this patient in conjunction with the physician front desk assistant. I performed independent history and physical exam. Agree with case management. Additional history reveals that the patient had his right hip replacement performed at [facility] approximately year 1998. I discussed closed reduction of the hip, and the patient states that he will only allow this to be attempted by an orthopedic surgeon, he is refusing to have an attempt performed by emergency department personnel. I discussed the injury with Justin Meek, covering the orthopedic surgery scheduled tonight. He did review the x-rays, staff the case, and phoned me back and they will perform closed reduction first thing in the morning in the operating room. This was reviewed with the patient. Additional analgesia provided. All questions answered. (Camden Haas ) - Radiology Data X-ray right foot impression: No acute abnormality of the right foot. X-ray right ankle impression: Soft tissue swelling. No fracture seen. (Vanessa Simons) Disposition Is patient prescribed a controlled substance at d/c from ED?: No Time of Disposition: 00:14 <Vanessa Simons - Last Filed: 11/24/17 00:14> <Camden Haas - Last Filed: 11/24/17 03:45> Clinical Impression: Toe abrasion Disposition: HOME SELF-CARE Condition: Good Instructions: Abrasion (ED) Additional Instructions: Please take medications as prescribed. Please follow up with primary care provider within 1-2 days. Return to emergency department if symptoms should worsen or any concerns arise. Referrals: Jeffrey Balbuena DO [Primary Care Provider] - 1-2 days
--- NOTE | 2017-11-23 23:38 | XR ---
EXAMINATION TYPE: XR foot complete RT DATE OF EXAM: 11/23/2017 COMPARISON: NONE HISTORY: Foot pain TECHNIQUE: 3 views FINDINGS: There is old healed fracture distal fifth metatarsal. I see no acute fracture nor dislocati on. There is slight hallux valgus. There is mild vascular calcification. The joint spaces are slightl y narrowed. IMPRESSION: No acute abnormality of the right foot.
--- NOTE | 2017-11-23 23:39 | XR ---
EXAMINATION TYPE: XR ankle complete RT DATE OF EXAM: 11/23/2017 COMPARISON: NONE HISTORY: Ankle pain TECHNIQUE: 3 views FINDINGS: There is soft tissue swelling over the lateral malleolus. Ankle mortise is anatomic. There is mild vascular calcification. IMPRESSION: Soft tissue swelling. No fracture seen.
== END 2017-11-24 00:28 | disposition home or self-care (01) ==
LOC: EC 21:41
DX: S90.414A Abrasion, right lesser toe(s), initial encounter (principal); E78.5 Hyperlipidemia, unspecified; I10 Essential (primary) hypertension; Z86.73 Personal history of transient ischemic attack (TIA), and cerebral infarction without residual deficits; Z87.891 Personal history of nicotine dependence; Z79.82 Long term (current) use of aspirin; Z79.899 Other long term (current) drug therapy; Z88.0 Allergy status to penicillin; W19.XXXA Unspecified fall, initial encounter
CPT/HCPCS: 99283

== ENCOUNTER → 2017-11-30 | Outpatient (CLI) | payer MEDICARE, OTHER ==
--- NOTE | 2017-11-30 12:19 | US ---
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 EXAM MEASUREMENTS: RIGHT: Peak Systolic Velocity (PSV) cm/sec ----- Right CCA: 78.2 ----- Right ICA: 123.7 ----- Right ECA: 141.5 ICA/CCA ratio: 1.6 RIGHT: End Diastole cm/sec ----- Right CCA: 15.4 ----- Right ICA: 0.0 ----- Right ECA: 0.0 LEFT: Peak Systolic Velocity (PSV) cm/sec ----- Left CCA: 58.1 ----- Left ICA: 74.3 ----- Left ECA: 121.9 ICA/CCA ratio: 1.3 LEFT: End Diastole cm/sec ----- Left CCA: 9.0 ----- Left ICA: 12.4 ----- Left ECA: 10.7 VERTEBRALS (direction of flow): Right Vertebral: Antegrade Left Vertebral: unable to detect flow Rhythm: Normal Previous US in 2010 showed 4.5 ICA/CCA ratio. Patient had previous stroke and unable to give accurate history, patient believed to have previous en darterectomy on right, technologist believes she sees patch. Grayscale images show moderate to severe recurrent eccentric plaque at right carotid bulb. Postsurgic al changes felt present. There is slight increased peak systolic velocity in the right internal carot id artery. There is persistent moderate to severe eccentric plaque at left carotid bulb. Velocity isidoro surements and ratios remain within normal limits. Technologist unable to identify normal cephalad magdalena w of left vertebral artery. IMPRESSION: Persistent or recurrent severe atherosclerotic change bilaterally, no convincing evidence of recurrent focal hemodynamically significant stenosis however.
== END | disposition home or self-care (01) ==
LOC: RADUSWWP 10:04
PROVIDERS: ATTEND Family Medicine
DX: I65.29 Occlusion and stenosis of unspecified carotid artery (principal)
CPT/HCPCS: 93880

== ENCOUNTER → 2018-07-04 | Outpatient (CLI) | payer MEDICARE, OTHER ==
--- NOTE | 2018-07-04 16:19 | CT ---
EXAMINATION TYPE: CT soft tissue neck w con DATE OF EXAM: 07/04/2018 COMPARISON: HISTORY: Lip CA CT DLP: 351.4 mGycm CONTRAST: CT scan of the neck is performed with IV Contrast, patient injected with 100 mL of Isovue 300. Contrast enhanced CT of the neck was performed from the skull base through the lung apices. AIRWAY: The supraglottic, glottic, and subglottic portions of the airway appear patent and free of mass. SALIVARY GLANDS: The submandibular and parotid glands are free of mass or inflammatory process. THYROID GLAND: No nodules or masses seen. LYMPH NODES: No adenopathy seen greater than 1cm. LUNG APICES: No nodule or mass is seen. OTHER: Vascular structures are patent. No significant degenerative change of the cervical spine. N o abscess seen. Large remote insult left MCA territory. Craniotomy changes left temporal region. IMPRESSION: No significant abnormality within the neck.
--- NOTE | 2018-07-05 09:14 | US ---
EXAMINATION TYPE: US carotid duplex BILAT DATE OF EXAM: 07/04/2018 COMPARISON: 11/30/2017 CLINICAL HISTORY: I65.29 occlusion and stenosis carotid artery. H/O stroke and limited mobility of th e right side of body EXAM MEASUREMENTS: RIGHT: Peak Systolic Velocity (PSV) cm/sec ----- Right CCA: 92.4 ----- Right ICA: 107.9 ----- Right ECA: 156.4 ICA/CCA ratio: 1.2 RIGHT: End Diastole cm/sec ----- Right CCA: 18.5 ----- Right ICA: 23.7 ----- Right ECA: 16.4 LEFT: Peak Systolic Velocity (PSV) cm/sec ----- Left CCA: 65.9 ----- Left ICA: 91.0 ----- Left ECA: 125.5 ICA/CCA ratio: 1.4 LEFT: End Diastole cm/sec ----- Left CCA: 13.3 ----- Left ICA: 11.7 ----- Left ECA: 15.5 VERTEBRALS (direction of flow): Right Vertebral: Antegrade Left Vertebral: Antegrade Rhythm: Normal Moderate heterogeneous plaque bilaterally with no significant stenosis seen. IMPRESSION: 1. There is persistent extensive atherosclerotic plaque bilaterally with no significant hemodynamic s tenosis Criteria for Assigning % of Stenosis / Diameter reduction (Estimation based on the indirect measurements of the internal carotid artery velocities (ICA PSV). 1. Normal (no stenosis)=ICA PSV < 125 cm/s: ratio < 2.0: ICA EDV<40 cm/s. 2. Less than 50% stenosis=ICA PSV < 125 cm/s: ratio < 2.0: ICA EDV<40 cm/s. 3. 50 to 69% stenosis=ICA PSV of 125 to 230 cm/s: ration 2.0 ? 4.0: ICA EDV 40-100 cm/s. 4. Greater than 70% stenosis to near occlusion= ICA PSV > 230 cm/s: ratio > 4.0: ICA EDV > 100 cm/s. 5. Near occlusion= ICA PSV velocities may be low or undetectable: variable ratio and ICA EDV. 6. Total occlusion=unable to detect flow.
== END | disposition home or self-care (01) ==
LOC: RADUSMAIN 14:05
PROVIDERS: ATTEND Family Medicine
DX: C44.02 Squamous cell carcinoma of skin of lip (principal); I65.23 Occlusion and stenosis of bilateral carotid arteries; Z88.0 Allergy status to penicillin
CPT/HCPCS: 82565; 84520; 93880; 70491; 36415; Q9967

== ENCOUNTER 2018-07-11 07:43 | Day surgery (SDC) | payer MEDICARE, OTHER ==
[2018-07-09 09:27] VITALS: BMI 21.6
[~2018-07-11 07:43] MED LIST changes: +CLINDAMYCIN 600 MG in DEXTROSE 5% IN WATER 50 ML IVPB ONE; +DEXAMETHASONE SOD PHOSPHATE 4 MG/ML 1 ML VIAL IV ONE; +FAMOTIDINE 20 MG/2 ML VIAL IV ONE; +HYDROmorphone 0.5 MG/0.5 ML SYRINGE IVP PRN; +LIDOCAINE 1% 20 ML VIAL (10MG/ML) FOR IV START INTRADERMA PRN; +ONDANSETRON 4 MG/2 ML VIAL IVP ONE
[2018-07-11] MEDS ORDERED: BUPIVACAIN-EPI 0.5%-1:200,000 30 ML VIAL SQ ONE (09:51)
[2018-07-11] MEDS ORDERED: BACITRACIN 500 UNIT/GM OINT 28.4 GM TUBE TOPICAL ONE (09:51)
[2018-07-11] MEDS ORDERED: LIDOCAINE 1%-EPI 1:100,000 20 ML VIAL SQ ONE (09:51)
[2018-07-11] MEDS ORDERED: MIDAZOLAM 2 MG/2 ML VIAL ONE (09:52)
[2018-07-11] MEDS ORDERED: ETOMIDATE 2 MG/ML 10 ML VIAL ONE (09:52)
[2018-07-11] MEDS ORDERED: ePHEDrine SULFATE/0.9% NACL/PF 50 MG/5 ML SYRINGE IV ONE (09:52)
[2018-07-11] MEDS ORDERED: SUCCINYLCHOLINE CHLORIDE 100 MG/5 ML SYR IV ONE (09:52)
[2018-07-11] MEDS ORDERED: LIDOCAINE 1% INJ 10MG/ML (20 ML MDV) ONE (09:52)
[2018-07-11] MEDS ORDERED: PROPOFOL 10 MG/ML 20 ML VIAL IV ONE (09:52)
[2018-07-11] MEDS ORDERED: fentaNYL (PF) 50 MCG/ML 2 ML AMP ONE (09:52)
[2018-07-11] MEDS ORDERED: DEXAMETHASONE SOD PHOS (MDV) 100 MG/10 ML VIAL ONE (09:52)
[2018-07-11 12:24] VITALS: TEMP 97.6
--- NOTE | 2018-07-11 12:36 | P.OP ---
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 The patient had this for several months and ignored the continued growth and developed a large ulcerative mass of the lower lip. 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 We did a wider resection for in situ changes of the skin and mucosa Description of Procedure: This patient was taken to the operative room and placed in the supine position. A general inhalation anesthetic was administered to the patient by mask and subsequently intubated with a cuffed endotracheal tube by the department of anesthesia with a functioning IV line in place. The patient was monitored throughout the entire case by the department of anesthesia. The lip was sterilely prepped and draped in usual fashion and lip clamps were placed. The lesion was marked and it was excised with a wider resection and sent for frozen section. All invasive cancer was removed but there was some in situ changes therefore a wider resection was performed and sent for permanent. This left a large defect and a Kar[place]andzic flap was developed. This left an 8 x 6 cm defect with the original defect of 4 x 3 cm noted. We rotated the flap into position and close the orbicularis muscle with 3-0 PDS and 4-0 Monocryl. After the muscle was closed to close the mucosa with a 4 rapid Vicryl. We closed the vermilion border with a 5-0 Prolene and skin was closed with a 5-0 Prolene. Excellent approximation was obtained the patient tolerated this well. Follow- up will be in the office in 1 week.
[2018-07-11] MEDS ORDERED: LACTATED RINGERS 1,000 ML IV ONE (13:00)
[2018-07-11 13:38] VITALS: RESP 16
[2018-07-11 14:38] VITALS: BP 132/68; PULSE 73
== END 2018-07-11 15:35 | disposition home or self-care (01) ==
LOC: OR 07:43
PROVIDERS: ATTEND Otolaryngology
DX: C00.1 Malignant neoplasm of external lower lip (principal); D00.01 Carcinoma in situ of labial mucosa and vermilion border; G81.90 Hemiplegia, unspecified affecting unspecified side; E78.2 Mixed hyperlipidemia; I65.21 Occlusion and stenosis of right carotid artery; K21.9 Gastro-esophageal reflux disease without esophagitis; I10 Essential (primary) hypertension; N40.0 Benign prostatic hyperplasia without lower urinary tract symptoms; F03.90 Unspecified dementia, unspecified severity, without behavioral disturbance, psychotic disturbance, mood disturbance, and anxiety; Z86.73 Personal history of transient ischemic attack (TIA), and cerebral infarction without residual deficits; Z79.2 Long term (current) use of antibiotics; Z79.899 Other long term (current) drug therapy; Z79.82 Long term (current) use of aspirin; Z87.891 Personal history of nicotine dependence; Z82.49 Family history of ischemic heart disease and other diseases of the circulatory system
CPT/HCPCS: 88305; 88331; 14301; J2250; J1100 ×2; J2405; J2001; J3010; J0330; J2704; J1170

== ENCOUNTER 2020-10-03 14:38 | Inpatient (IN) | payer MEDICARE, OTHER ==
--- NOTE | 2020-10-03 15:11 | ED ---
General Adult HPI - General Chief complaint: Fall Stated complaint: Fall Time Seen by Provider: 10/03/20 14:42 Source: patient, EMS, RN notes reviewed, old records reviewed Mode of arrival: EMS Limitations: no limitations - History of Present Illness Initial comments: 85-year-old male history of dementia, previous CVA, presenting status post fall which occurred on Sunday. He is presenting for evaluation on Sunday. 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 The patient is able to answer some simple questions but is not able to give a detailed history. Upon arrival he is found to be hypoxic with no previous history of oxygen dependence. There was no reported fever. No known contact with coronavirus. No history of vomiting. - Related Data Home Medications Medication Instructions Recorded Confirmed Multivitamins, Thera [Multivitamin 1 tab PO DAILY 10/16/15 10/03/20 (formulary)] Aspirin [Adult Low Dose Aspirin EC] 81 mg PO DAILY 11/10/16 10/03/20 Atorvastatin [Lipitor] 10 mg PO DAILY 07/09/18 10/03/20 Cyanocobalamin (Vitamin B-12) 1,000 mcg PO DAILY 07/09/18 10/03/20 [Vitamin B-12] Omeprazole 40 mg PO BID 07/09/18 10/03/20 Tamsulosin [Flomax] 0.4 mg PO HS 07/09/18 10/03/20 amLODIPine [Norvasc] 5 mg PO DAILY 07/09/18 10/03/20 Cholecalciferol (Vitamin D3) 125 mcg PO DAILY 10/03/20 10/03/20 [Vitamin D3 (5000 Iu)] Zinc Gluconate [Zinc] 50 mg PO DAILY 10/03/20 10/03/20 Allergies Allergy/AdvReac Type Severity Reaction Status Date / Time Penicillins Allergy Unknown Verified 10/03/20 17:24 Childhood Review of Systems ROS Statement: Those systems with pertinent positive or pertinent negative responses have been documented in the HPI. ROS Other: All systems not noted in ROS Statement are negative. 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, uses wheelchair, has memory problems, hx falls, HIATAL HERNIA, BARRETTS ESOPHAGUS, eczema, History of Any Multi-Drug Resistant Organisms: None Reported Past Surgical History: Adenoidectomy, Tonsillectomy Additional Past Surgical History / Comment(s): rt carotid endarterrectomy, brain surgery for aneurysm, feeding tube/later removed, Past Anesthesia/Blood Transfusion Reactions: No Reported Reaction Past Psychological History: Anxiety Smoking Status: Never smoker Past Alcohol Use History: Daily Past Drug Use History: None Reported - Past Family History Father History Unknown: Yes Family Medical History: Myocardial Infarction ([place]) Additional Family Medical History / Comment(s): in his 70's Mother Family Medical History: CVA/TIA, Dementia Additional Family Medical History / Comment(s): at age 94 or 95 General Exam Limitations: no limitations General appearance: alert, in no apparent distress Head exam: Present: atraumatic, normocephalic Eye exam: Present: normal appearance, PERRL ENT exam: Present: mucous membranes moist Neck exam: Present: normal inspection, full ROM. Absent: tenderness, meningismus Respiratory exam: Present: respiratory distress, rhonchi, decreased breath sounds Cardiovascular Exam: Present: regular rate, normal rhythm GI/Abdominal exam: Present: soft, hernia (Anterior abdominal wall, soft). Absent: distended, tenderness Extremities exam: Present: normal capillary refill, other (Right leg is approximately 1 cm shorter than the left, patient has good strength in both legs, 5 out of 5 there does not appear to be any pain with range of motion.). Absent: pedal edema, calf tenderness Neurological exam: Present: alert. Absent: oriented X3 Skin exam: Present: warm, dry, intact. Absent: cyanosis, diaphoretic Course Vital Signs 10/03/20 10/03/20 10/03/20 14:39 14:44 17:07 Temperature 99.8 F H 97.9 F Pulse Rate 92 76 Respiratory 18 18 Rate Blood Pressure 134/84 122/65 O2 Sat by Pulse 87 L 92 L 93 L Oximetry EKG Findings - EKG Comments: EKG Findings:: EKG: Sinus rhythm with PAC, left axis, rate of 90, IN interval 150, QRS duration 76, QTC 420 T segment elevation. Medical Decision Making - Medical Decision Making 85-year-old male who presented with fall which occurred several days ago, found to be febrile and hypoxic upon arrival. Chest x-ray confirming a right-sided pneumonia. There is a suspicion for aspiration in this patient with previous CVA. He started on clindamycin and Levaquin. Additionally he had some complaints of hip pain, x-ray performed which are negative. He has a CT brain which is negative for intracranial hemorrhage or mass effect. White count 21,000. He will be admitted for IV fluids and IV antibiotics as well as supple mental oxygenation. Case discussed with Dr. Elder who will admit. - Lab Data Result diagrams: 10/03/20 15:12 10/03/20 15:12 Lab Results 10/03/20 10/03/20 10/03/20 Range/Units 15:12 15:12 15:12 WBC 21.8 H (3.8-10.6) k/uL RBC 4.88 (4.30-5.90) m/uL Hgb 15.5 (13.0-17.5) gm/dL Hct 46.3 (39.0-53.0) % MCV 94.9 (80.0-100.0) fL MCH 31.8 (25.0-35.0) pg MCHC 33.5 (31.0-37.0) g/dL RDW 12.5 (11.5-15.5) % Plt Count 208 (150-450) k/uL MPV 7.9 Neutrophils % 93 % Lymphocytes % 3 % Monocytes % 2 % Eosinophils % 1 % Basophils % 0 % Neutrophils # 20.2 H (1.3-7.7) k/uL Lymphocytes # 0.7 L (1.0-4.8) k/uL Monocytes # 0.5 (0-1.0) k/uL Eosinophils # 0.2 (0-0.7) k/uL Basophils # 0.1 (0-0.2) k/uL Sodium 140 (137-145) mmol/L Potassium 4.3 (3.5-5.1) mmol/L Chloride 102 (98-107) mmol/L Carbon Dioxide 26 (22-30) mmol/L Anion Gap 12 mmol/L BUN 25 H (9-20) mg/dL Creatinine 1.10 (0.66-1.25) mg/dL Est GFR (CKD-EPI)AfAm 72 (>60 ml/min/1.73 sqM) Est GFR (CKD-EPI)NonAf 62 (>60 ml/min/1.73 sqM) Glucose 123 H (74-99) mg/dL Plasma Lactic Acid Chago (0.7-2.0) mmol/L Calcium 9.2 (8.4-10.2) mg/dL Magnesium 1.7 (1.6-2.3) mg/dL Total Bilirubin 1.2 (0.2-1.3) mg/dL AST 28 (17-59) U/L ALT 16 (4-49) U/L Alkaline Phosphatase 95 (38-126) U/L C-Reactive Protein 31.2 H (<10.0) mg/L NT-Pro-B Natriuret Pep 383 pg/mL Total Protein 7.0 (6.3-8.2) g/dL Albumin 4.1 (3.5-5.0) g/dL Coronavirus (PCR) (Not Detectd) 10/03/20 10/03/20 Range/Units 15:12 15:16 WBC (3.8-10.6) k/uL RBC (4.30-5.90) m/uL Hgb (13.0-17.5) gm/dL Hct (39.0-53.0) % MCV (80.0-100.0) fL MCH (25.0-35.0) pg MCHC (31.0-37.0) g/dL RDW (11.5-15.5) % Plt Count (150-450) k/uL MPV Neutrophils % % Lymphocytes % % Monocytes % % Eosinophils % % Basophils % % Neutrophils # (1.3-7.7) k/uL Lymphocytes # (1.0-4.8) k/uL Monocytes # (0-1.0) k/uL Eosinophils # (0-0.7) k/uL Basophils # (0-0.2) k/uL Sodium (137-145) mmol/L Potassium (3.5-5.1) mmol/L Chloride (98-107) mmol/L Carbon Dioxide (22-30) mmol/L Anion Gap mmol/L BUN (9-20) mg/dL Creatinine (0.66-1.25) mg/dL Est GFR (CKD-EPI)AfAm (>60 ml/min/1.73 sqM) Est GFR (CKD-EPI)NonAf (>60 ml/min/1.73 sqM) Glucose (74-99) mg/dL Plasma Lactic Acid Chago 1.9 (0.7-2.0) mmol/L Calcium (8.4-10.2) mg/dL Magnesium (1.6-2.3) mg/dL Total Bilirubin (0.2-1.3) mg/dL AST (17-59) U/L ALT (4-49) U/L Alkaline Phosphatase (38-126) U/L C-Reactive Protein (<10.0) mg/L NT-Pro-B Natriuret Pep pg/mL Total Protein (6.3-8.2) g/dL Albumin (3.5-5.0) g/dL Coronavirus (PCR) Not Detected (Not Detectd) Critical Care Time Critical Care Time: Yes Total Critical Care Time: 35 Disposition Clinical Impression: Pneumonia, Hypoxia Disposition: ADMITTED IP TO THIS [facility] Condition: Stable Is patient prescribed a controlled substance at d/c from ED?: No Referrals: None,Stated [REFERRING] - 1-2 days Decision to Admit Reason: Admit from EC Decision Date: 10/03/20 Decision Time: 18:03
[2020-10-03 15:26] LABS: Basophils # (A) 0.1 k/uL (0-0.2); Basophils % (A) 0 %; Eosinophils # (A) 0.2 k/uL (0-0.7); Eosinophils % (A) 1 %; HCT 46.3 % (39.0-53.0); HGB 15.5 gm/dL (13.0-17.5); Lymphocytes # (A) 0.7 k/uL (1.0-4.8); Lymphocytes % (A) 3 %; MCH 31.8 pg (25.0-35.0); MCHC 33.5 g/dL (31.0-37.0); MCV 94.9 fL (80.0-100.0); Mean Platelet Volume 7.9; Monocytes # (A) 0.5 k/uL (0-1.0); Monocytes % (A) 2 %; Neutrophils # (A) 20.2 k/uL (1.3-7.7); Neutrophils % (A) 93 %; Platelet Count 208 k/uL (150-450); RBC 4.88 m/uL (4.30-5.90); RDW 12.5 % (11.5-15.5); WBC 21.8 k/uL (3.8-10.6)
[2020-10-03 15:40] LABS: Potassium 4.3 mmol/L (3.5-5.1)
[2020-10-03 15:43] LABS: Albumin 4.1 g/dL (3.5-5.0); C Reactive Protein 31.2 mg/L (<10.0); Calcium 9.2 mg/dL (8.4-10.2); Magnesium 1.7 mg/dL (1.6-2.3); Total Bilirubin 1.2 mg/dL (0.2-1.3)
--- NOTE | 2020-10-03 15:55 | CT ---
EXAMINATION TYPE: CT brain oscar goldberg DATE OF EXAM: 10/03/2020 COMPARISON: CT brain 04/30/2016 HISTORY: Fall. Headache. Neck pain CT DLP: 1326.1 mGycm Automated exposure control for dose reduction was used. There is large area of hypodensity involving the left cerebral hemisphere consistent with an old midd le cerebral artery infarct. There is no midline shift. There is no mass effect. There is no sign of i ntracranial hemorrhage. There is straightening of the cervical spine. There is severe narrowing of the C5-6 and C6-7 disc spa zia with spur formation. There is no compression fracture. There is multilevel cervical hypertrophic facet arthropathy. The skull base is intact. There is normal aeration of the mastoid sinuses. IMPRESSION: No acute intracranial abnormality. Large old left hemisphere infarct. Spondylotic changes in the cervical spine. No fracture.
--- NOTE | 2020-10-03 15:58 | XR ---
EXAMINATION TYPE: XR Hip Bilateral and AP pelvis DATE OF EXAM: 10/03/2020 COMPARISON: NONE HISTORY: Fall. Pain. TECHNIQUE: 5 views FINDINGS: The pelvic ring is intact. Proximal femurs and hip joints are intact. There is no evidence of hip dysplasia. Sacroiliac joints are intact. IMPRESSION: No acute abnormality of the pelvis and both hips. Normal hip joint spaces. Atheroscleroti c vascular disease noted.
--- NOTE | 2020-10-03 16:02 | XR ---
EXAMINATION TYPE: XR chest 1V portable DATE OF EXAM: 10/03/2020 COMPARISON: 09/06/2016 HISTORY: Chest pain TECHNIQUE: Single view FINDINGS: There is some coarse interstitial density in the right lung. There is elevated right diaphr agm. There is no heart failure. Heart size is normal. There are chest leads. There is slight blunting right costophrenic angle. IMPRESSION: There is new interstitial patchy infiltrate in the right lung with probably some atelecta sis right lung base compared to old exam. No heart failure.
[2020-10-03] MEDS ORDERED: LEVOFLOXACIN 500MG-D5W PMX 500 MG in DEXTROSE/WATER 1 100ML.BAG IVPB STA (16:27)
[2020-10-03] MEDS ORDERED: CLINDAMYCIN 600 MG in DEXTROSE 5% IN WATER 50 ML IVPB STA ×2 (16:33)
[2020-10-03] MEDS ORDERED: SODIUM CHLORIDE 0.9% 500 ML 500 ML IV ONE (17:00)
[2020-10-03] MEDS ORDERED: ACETAMINOPHEN TAB 325 MG TAB PO PRN (17:57)
[2020-10-03] MEDS ORDERED: NALOXONE 0.4 MG/ML 1 ML VIAL IV PRN (17:57)
[2020-10-03] MEDS ORDERED: HYDROcodone/APAP 5-325MG 1 EACH TAB PO PRN (21:34)
[2020-10-03] MEDS ORDERED: PANTOPRAZOLE 40 MG TABLET PO SCH (21:45)
[2020-10-04] MEDS: HEPARIN SODIUM,PORCINE/PF 5,000 UNIT/0.5 ML SYRINGE SQ SCH ×2 (03:20→10:09)
[2020-10-04] MEDS: SODIUM CHLORIDE 0.9% 1,000 ML IV SCH ×3 (03:22→10:11)
--- NOTE | 2020-10-04 06:12 | HP ---
HISTORY AND PHYSICAL DATE OF SERVICE: 10/03/2020 CHIEF COMPLAINT: Fall, fever and possible pneumonia. HISTORY OF PRESENT ILLNESS: This 85-year-old gentleman with a past medical history of multiple medical problems , dementia, CVA, GERD, hypertension, hyperlipidemia, history of pneumonia, being followed by Dr. Balbuena in the outpatient setting was admitted to [facility] with complaints of fall. The patient apparently had hip pain. Patient also had nausea, fever, and other symptoms as well. The COVID-19 was negative. The chest x-ray showed suspicion of pneumonia. The patient was admitted for further evaluation and treatment. There is no history any headache, loss consciousness or seizures at this time. PAST MEDICAL HISTORY: CVA, TIA, dementia, GERD, hypertension, hyperlipidemia, history of pneumonia. MEDICATIONS: Medications prior to admission, home medications are , Norvasc, Flomax, omeprazole, multivitamin, simvastatin, vitamin B complex, Lipitor and aspirin. ALLERGIES: PENICILLIN. FAMILY HISTORY: Myocardial infarction in the family. SOCIAL HISTORY: History of smoking. Occasional alcohol intake. REVIEW OF SYSTEMS: ENT: No diminished vision or hearing. CARDIOVASCULAR: No angina or palpitations. RESPIRATORY: No cough. GI: As mentioned earlier. : No dysuria. NERVOUS SYSTEM: No numbness or weakness. ALLERGY/IMMUNOLOGY: No asthma or hayfever. MUSCULOSKELETAL: As mentioned earlier. HEMATOLOGY: No history of anemia. ENDOCRINE: No history of diabetes or hypothyroidism. CONSTITUTIONAL: As mentioned earlier. DERMATOLOGY: Negative. RHEUMATOLOGY: Negative. PSYCHIATRY: As mentioned earlier. PHYSICAL EXAMINATION: GENERAL: Patient is alert and oriented times three. VITAL SIGNS: Pulse 76, blood pressure 120/64, respirations 18, temperature 97.9, pulse ox 92% on 4 liters. HEENT: Conjunctivae normal. Oral mucosa moist. NECK: No jugular venous distention. No carotid bruits. No lymph node enlargement. RESPIRATORY: Breath sounds diminished at the bases. Bilateral scattered rhonchi and crackles. HEART: S1 and S2, muffled. ABDOMEN: Soft, no tenderness. No masses palpable. EXTREMITIES: No edema, no swelling. NERVOUS: Right-sided hemiplegia present. LYMPHATICS: No lymph nodes palpable in the neck or axillae. SKIN: No rashes. JOINTS: No active deforming arthropathy. LABS: WBC 21.8. Glucose 133. ASSESSMENT: 1. Possible acute bilateral pneumonia, right more the left, with possible sepsis present on admission. 2. Increased WBC. 3. History of fall. 4. 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 5. Dementia. 6. Gastroesophageal reflux disease. 7. Hypertension. 8. Hyperlipidemia. 9. History of pneumonia. 10.History of brain aneurysm and cerebrovascular accident. 11.History of anxiety. RECOMMENDATIONS AND DISCUSSION: Recommendation to continue current management, continue symptomatic treatment. We will initiate broad-spectrum IV antibiotics. Other than that, I would also recommend resuming the home medications. COVID-19 is negative. Repeat labs. DVT prophylaxis. Symptomatic treatment of the pain. PT OT evaluation subsequently. Prognosis guarded. Further recommendations to follow. MMODL / IJN: [id number] / MTDMilana
[2020-10-04 08:53] LABS: Basophils # (A) 0.06 X 10*3/uL (0.00-0.10); Basophils % (A) 0.3 %; Eosinophils # (A) 0.04 X 10*3/uL (0.04-0.35); Eosinophils % (A) 0.2 %; HGB 14.2 g/dL (13.0-17.0); Lymphocytes # (A) 1.15 X 10*3/uL (0.90-5.00); Lymphocytes % (A) 6.1 %; MCH 31.6 pg (27.0-32.0); MCHC 32.3 g/dL (32.0-37.0); MCV 97.8 fL (80.0-97.0); Mean Platelet Volume 11.3 fL (9.5-12.2); Monocytes # (A) 0.91 X 10*3/uL (0.20-1.00); Monocytes % (A) 4.9 %; Neutrophils # (A) 16.51 X 10*3/uL (1.80-7.70); Neutrophils % (A) 88.1 %; Platelet Count 208 X 10*3/uL (140-440); WBC 18.75 X 10*3/uL (4.50-10.00)
[2020-10-04] MEDS: ZINC SULFATE 220 MG CAP PO SCH (10:03)
[2020-10-04] MEDS: amLODIPine 5 MG TAB PO SCH (10:04)
[2020-10-04] MEDS: PANTOPRAZOLE 40 MG TABLET PO SCH ×2 (10:04→20:22)
[2020-10-04] MEDS: CYANOCOBALAMIN 500 MCG TAB PO SCH (10:04)
[2020-10-04] MEDS: ASPIRIN 81 MG PO SCH (10:04)
[2020-10-04] MEDS: CHOLECALCIFEROL 25 MCG (1000 IU) TABLET PO SCH (10:04)
[2020-10-04] MEDS: MULTIVITAMINS, THERA 1 EACH TAB PO SCH (10:04)
[2020-10-04] MEDS: ATORVASTATIN 10 MG TAB PO SCH (10:04)
[2020-10-04 11:26] LABS: African American GFR (CKD) 64.4 (60.0-200.0); Albumin/Globulin Ratio 1.74 (1.60-3.17); Anion Gap 9.4 mmol/L (4.00-12.00); BUN/Creat Ratio 24.17 Ratio (12.00-20.00); Calcium 8.9 mg/dL (8.7-10.3); Carbon Dioxide 25.6 mmol/L (21.6-31.8); Globulin 2.3 g/dL (1.6-3.3); Non-African American GFR(CKD) 55.6 (60.0-200.0); Potassium 4.3 mmol/L (3.5-5.5); Total Bilirubin 1.2 mg/dL (0.3-1.2); Total Protein 6.3 g/dL (6.2-8.2)
[2020-10-04] MEDS: CEFEPIME 2 GM in SODIUM CHLORIDE 0.9% 100 ML IVPB SCH ×2 (15:27→23:28)
[2020-10-04] MEDS: guaiFENesin 600 MG TABLET.ER PO SCH ×3 (15:27→20:22)
[2020-10-04] MEDS: LACTATED RINGERS 1,000 ML IV SCH (15:27)
[2020-10-04] MEDS ORDERED: LEVOFLOXACIN 500MG-D5W PMX 500 MG in DEXTROSE/WATER 1 100ML.BAG IVPB SCH (17:00)
[2020-10-04] MEDS: TAMSULOSIN 0.4 MG CAP.ER.24H PO SCH (20:22)
--- NOTE | 2020-10-04 22:23 | P.PN ---
Progress Note - Text Progress Note Date: 10/04/20 Presenting complaint: Fall History of presenting complaint: This is a 85-year-old patient of Dr. Balbuena. Presented with a fall. No fracture was noted. Congested. Found to have pneumonia. Did receive a dose of Levaquin in the ER. Today-laying in bed. Tired. Congested. at the bedside. Appetite not good. Review of systems: Was done for constitutional, cardiovascular, GI, pulmonary. relevant finding as above Active Medications Acetaminophen (Acetaminophen Tab 325 Mg Tab) 650 mg PO Q6HR PRN PRN Reason: Mild Pain or Fever > 100.5 Hydrocodone Bitart/Acetaminophen (Hydrocodone/Apap 5-325mg 1 Each Tab) 1 each PO Q6HR PRN PRN Reason: Pain Amlodipine Besylate (Amlodipine 5 Mg Tab) 5 mg PO DAILY [facility] Last Admin: 10/04/20 10:04 Dose: 5 mg Documented by: Aspirin (Aspirin 81 Mg) 81 mg PO DAILY [facility] Last Admin: 10/04/20 10:04 Dose: 81 mg Documented by: Atorvastatin Calcium (Atorvastatin 10 Mg Tab) 10 mg PO DAILY [facility] Last Admin: 10/04/20 10:04 Dose: 10 mg Documented by: Cholecalciferol (Cholecalciferol 25 Mcg (1000 Iu) Tablet) 125 mcg PO DAILY [facility] Last Admin: 10/04/20 10:04 Dose: 125 mcg Documented by: Cyanocobalamin (Cyanocobalamin 500 Mcg Tab) 1,000 mcg PO DAILY [facility] Last Admin: 10/04/20 10:04 Dose: 1,000 mcg Documented by: Enoxaparin Sodium (Enoxaparin 40 Mg/0.4 Ml Syringe) 40 mg SQ DAILY [facility] Guaifenesin (Guaifenesin 600 Mg Tablet.Er) 600 mg PO QID [facility] Last Admin: 10/04/20 20:22 Dose: 600 mg Documented by: Cefepime HCl 2 gm/ Sodium (Chloride) 100 mls @ 25 mls/hr IVPB Q12HR@0000,1200 [facility] Last Admin: 10/04/20 15:27 Dose: 25 mls/hr Documented by: Lactated Ringer's (Lactated Ringers) 1,000 mls @ 75 mls/hr IV .[id number] [facility] Last Admin: 10/04/20 15:27 Dose: 75 mls/hr Documented by: Multivitamins (Multivitamins, Thera 1 Each Tab) 1 each PO DAILY [facility] Last Admin: 10/04/20 10:04 Dose: 1 each Documented by: Naloxone HCl (Naloxone 0.4 Mg/Ml 1 Ml Vial) 0.2 mg IV Q2M PRN PRN Reason: Opioid Reversal Pantoprazole Sodium (Pantoprazole 40 Mg Tablet) 40 mg PO BID [facility] Last Admin: 10/04/20 20:22 Dose: 40 mg Documented by: Tamsulosin HCl (Tamsulosin 0.4 Mg Cap.Er.24h) 0.4 mg PO HS [facility] Last Admin: 10/04/20 20:22 Dose: 0.4 mg Documented by: Zinc Sulfate (Zinc Sulfate 220 Mg Cap) 220 mg PO DAILY [facility] Last Admin: 10/04/20 10:03 Dose: 220 mg Documented by: On examination: VITAL SIGNS: 98.8, 60, 18, 145/65, 93% on 4 L GENERAL APPEARANCE: BMI 21.0 declining in bed, tired HEENT: Normal external appearance of nose and ear. Oral cavity dry EYES: Pupils equal. Conjunctiva normal. NECK: JVD not raised. Mass not palpable. RESPIRATORY: Respiratory effort increased, bilateral coarse crackles. CARDIOVASCULAR: First and second sounds normal. No edema. ABDOMEN: Soft. Liver and spleen not palpable. No tenderness. No mass palpable. PSYCHIATRY: Tired but able to answer simple questions INVESTIGATIONS, reviewed in the clinical context: WBC 18.7 hemoglobin 14.2 platelets 208 increased neutrophils potassium 4.3 creatinine 1.2 Coronavirus [PCR]-not detected EKG tracing personally reviewed by me-normal sinus rhythm Q-wave in inferior leads Chest x-ray film personally reviewed by me-right lower lobe infiltrate Hip pelvis x-ray, had cervical spine CT: Negative for fracture. 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 Patient started on cefepime. Mucinex added. Other medications to continue. IV hydration
[2020-10-05] MEDS: LACTATED RINGERS 1,000 ML IV SCH (09:16)
[2020-10-05] MEDS: CHOLECALCIFEROL 25 MCG (1000 IU) TABLET PO SCH (09:28)
[2020-10-05] MEDS: ATORVASTATIN 10 MG TAB PO SCH (09:28)
[2020-10-05] MEDS: PANTOPRAZOLE 40 MG TABLET PO SCH ×2 (09:28→20:10)
[2020-10-05] MEDS: ASPIRIN 81 MG PO SCH (09:28)
[2020-10-05] MEDS: amLODIPine 5 MG TAB PO SCH (09:28)
[2020-10-05] MEDS: ZINC SULFATE 220 MG CAP PO SCH (09:28)
[2020-10-05] MEDS: CYANOCOBALAMIN 500 MCG TAB PO SCH (09:28)
[2020-10-05] MEDS: MULTIVITAMINS, THERA 1 EACH TAB PO SCH (09:29)
[2020-10-05] MEDS: guaiFENesin 600 MG TABLET.ER PO SCH ×4 (09:29→20:10)
[2020-10-05] MEDS: ENOXAPARIN 40 MG/0.4 ML SYRINGE SQ SCH (09:29)
[2020-10-05] MEDS: SODIUM CHLORIDE 0.9% 1,000 ML IV SCH (12:13)
[2020-10-05] MEDS: CEFEPIME 2 GM in SODIUM CHLORIDE 0.9% 100 ML IVPB SCH ×2 (12:15→23:06)
[2020-10-05] MEDS: TAMSULOSIN 0.4 MG CAP.ER.24H PO SCH (20:10)
--- NOTE | 2020-10-05 23:39 | P.PN ---
Progress Note - Text Progress Note Date: 10/05/20 Presenting complaint: Fall History of presenting complaint: This is a 85-year-old patient of Dr. Balbuena. Presented with a fall. No fracture was noted. Congested. Found to have pneumonia. Did receive a dose of Levaquin in the ER. Today-sitting up in a chair. More awake today. Oral intake better. Less short of breath Review of systems: Was done for constitutional, cardiovascular, GI, pulmonary. relevant finding as above Active Medications Acetaminophen (Acetaminophen Tab 325 Mg Tab) 650 mg PO Q6HR PRN PRN Reason: Mild Pain or Fever > 100.5 Hydrocodone Bitart/Acetaminophen (Hydrocodone/Apap 5-325mg 1 Each Tab) 1 each PO Q6HR PRN PRN Reason: Pain Amlodipine Besylate (Amlodipine 5 Mg Tab) 5 mg PO DAILY [facility] Last Admin: 10/05/20 09:28 Dose: 5 mg Documented by: Aspirin (Aspirin 81 Mg) 81 mg PO DAILY [facility] Last Admin: 10/05/20 09:28 Dose: 81 mg Documented by: Atorvastatin Calcium (Atorvastatin 10 Mg Tab) 10 mg PO DAILY [facility] Last Admin: 10/05/20 09:28 Dose: 10 mg Documented by: Cholecalciferol (Cholecalciferol 25 Mcg (1000 Iu) Tablet) 125 mcg PO DAILY [facility] Last Admin: 10/05/20 09:28 Dose: 125 mcg Documented by: Cyanocobalamin (Cyanocobalamin 500 Mcg Tab) 1,000 mcg PO DAILY [facility] Last Admin: 10/05/20 09:28 Dose: 1,000 mcg Documented by: Enoxaparin Sodium (Enoxaparin 40 Mg/0.4 Ml Syringe) 40 mg SQ DAILY [facility] Last Admin: 10/05/20 09:29 Dose: 40 mg Documented by: Guaifenesin (Guaifenesin 600 Mg Tablet.Er) 600 mg PO QID [facility] Last Admin: 10/05/20 20:10 Dose: 600 mg Documented by: Cefepime HCl 2 gm/ Sodium (Chloride) 100 mls @ 25 mls/hr IVPB Q12HR@0000,1200 [facility] Last Admin: 10/05/20 23:06 Dose: 25 mls/hr Documented by: Sodium Chloride (Saline 0.9%) 1,000 mls @ 50 mls/hr IV .Q20H [facility] Last Admin: 10/05/20 12:13 Dose: 50 mls/hr Documented by: Multivitamins (Multivitamins, Thera 1 Each Tab) 1 each PO DAILY [facility] Last Admin: 10/05/20 09:29 Dose: 1 each Documented by: Naloxone HCl (Naloxone 0.4 Mg/Ml 1 Ml Vial) 0.2 mg IV Q2M PRN PRN Reason: Opioid Reversal Pantoprazole Sodium (Pantoprazole 40 Mg Tablet) 40 mg PO BID [facility] Last Admin: 10/05/20 20:10 Dose: 40 mg Documented by: Tamsulosin HCl (Tamsulosin 0.4 Mg Cap.Er.24h) 0.4 mg PO HS [facility] Last Admin: 10/05/20 20:10 Dose: 0.4 mg Documented by: Zinc Sulfate (Zinc Sulfate 220 Mg Cap) 220 mg PO DAILY [facility] Last Admin: 10/05/20 09:28 Dose: 220 mg Documented by: On examination: VITAL SIGNS: 97.3, 64, 20, 164/64, 93% on 2 L GENERAL APPEARANCE: Sitting up in a chair, more awake tired HEENT: Normal external appearance of nose and ear. Oral cavity dry EYES: Pupils equal. Conjunctiva normal. NECK: JVD not raised. Mass not palpable. RESPIRATORY: Respiratory effort increased, decreased coarse crackles. CARDIOVASCULAR: First and second sounds normal. No edema. ABDOMEN: Soft. Liver and spleen not palpable. No tenderness. No mass palpable. PSYCHIATRY: Tired but able to answer simple questions INVESTIGATIONS, reviewed in the clinical context: October 05: Procalcitonin 1.11 WBC 18.7 hemoglobin 14.2 platelets 208 increased neutrophils potassium 4.3 creatinine 1.2 Coronavirus [PCR]-not detected EKG tracing personally reviewed by me-normal sinus rhythm Q-wave in inferior leads Chest x-ray film personally reviewed by me-right lower lobe infiltrate Hip pelvis x-ray, had cervical spine CT: Negative for fracture. 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 Encourage oral intake.
[2020-10-06 04:58] VITALS: RESP 18
[2020-10-06] MEDS: ASPIRIN 81 MG PO SCH (07:44)
[2020-10-06] MEDS: SODIUM CHLORIDE 0.9% 1,000 ML IV SCH ×2 (07:44→22:59)
[2020-10-06] MEDS: MULTIVITAMINS, THERA 1 EACH TAB PO SCH (07:44)
[2020-10-06] MEDS: CHOLECALCIFEROL 25 MCG (1000 IU) TABLET PO SCH (07:45)
[2020-10-06] MEDS: guaiFENesin 600 MG TABLET.ER PO SCH ×4 (07:45→21:08)
[2020-10-06] MEDS: CYANOCOBALAMIN 500 MCG TAB PO SCH (07:45)
[2020-10-06] MEDS: PANTOPRAZOLE 40 MG TABLET PO SCH ×2 (07:45→21:08)
[2020-10-06] MEDS: amLODIPine 5 MG TAB PO SCH (07:45)
[2020-10-06] MEDS: ATORVASTATIN 10 MG TAB PO SCH (07:45)
[2020-10-06] MEDS: ZINC SULFATE 220 MG CAP PO SCH (07:45)
[2020-10-06] MEDS: ENOXAPARIN 40 MG/0.4 ML SYRINGE SQ SCH (07:45)
[2020-10-06 08:37] LABS: Basophils # (A) 0.1 k/uL (0-0.2); Basophils % (A) 1 %; Eosinophils # (A) 0.4 k/uL (0-0.7); Eosinophils % (A) 4 %; HCT 41.7 % (39.0-53.0); Lymphocytes # (A) 0.8 k/uL (1.0-4.8); Lymphocytes % (A) 8 %; MCH 31.8 pg (25.0-35.0); MCHC 33.5 g/dL (31.0-37.0); MCV 94.8 fL (80.0-100.0); Mean Platelet Volume 8.4; Monocytes # (A) 0.6 k/uL (0-1.0); Monocytes % (A) 6 %; Neutrophils # (A) 8.1 k/uL (1.3-7.7); Neutrophils % (A) 81 %; Platelet Count 233 k/uL (150-450); RDW 12.4 % (11.5-15.5)
[2020-10-06] MEDS: CEFEPIME 2 GM in SODIUM CHLORIDE 0.9% 100 ML IVPB SCH ×2 (13:28→22:59)
--- NOTE | 2020-10-06 21:03 | P.PN ---
Progress Note - Text Progress Note Date: 10/06/20 Presenting complaint: Fall History of presenting complaint: This is a 85-year-old patient of Dr. Balbuena. Presented with a fall. No fracture was noted. Congested. Found to have pneumonia. Did receive a dose of Levaquin in the ER. Today-reclining in bed. More cheerful. Breathing better. Oral intake improved. Decreased cough. Review of systems: Was done for constitutional, cardiovascular, GI, pulmonary. relevant finding as above Active Medications Acetaminophen (Acetaminophen Tab 325 Mg Tab) 650 mg PO Q6HR PRN PRN Reason: Mild Pain or Fever > 100.5 Hydrocodone Bitart/Acetaminophen (Hydrocodone/Apap 5-325mg 1 Each Tab) 1 each PO Q6HR PRN PRN Reason: Pain Amlodipine Besylate (Amlodipine 5 Mg Tab) 5 mg PO DAILY [facility] Last Admin: 10/06/20 07:45 Dose: 5 mg Documented by: Aspirin (Aspirin 81 Mg) 81 mg PO DAILY [facility] Last Admin: 10/06/20 07:44 Dose: 81 mg Documented by: Atorvastatin Calcium (Atorvastatin 10 Mg Tab) 10 mg PO DAILY [facility] Last Admin: 10/06/20 07:45 Dose: 10 mg Documented by: Cholecalciferol (Cholecalciferol 25 Mcg (1000 Iu) Tablet) 125 mcg PO DAILY [facility] Last Admin: 10/06/20 07:45 Dose: 125 mcg Documented by: Cyanocobalamin (Cyanocobalamin 500 Mcg Tab) 1,000 mcg PO DAILY [facility] Last Admin: 10/06/20 07:45 Dose: 1,000 mcg Documented by: Enoxaparin Sodium (Enoxaparin 40 Mg/0.4 Ml Syringe) 40 mg SQ DAILY [facility] Last Admin: 10/06/20 07:45 Dose: 40 mg Documented by: Guaifenesin (Guaifenesin 600 Mg Tablet.Er) 600 mg PO QID [facility] Last Admin: 10/06/20 17:32 Dose: 600 mg Documented by: Cefepime HCl 2 gm/ Sodium (Chloride) 100 mls @ 25 mls/hr IVPB Q12HR@0000,1200 [facility] Last Admin: 10/06/20 13:28 Dose: 25 mls/hr Documented by: Sodium Chloride (Saline 0.9%) 1,000 mls @ 50 mls/hr IV .Q20H [facility] Last Admin: 10/06/20 07:44 Dose: 50 mls/hr Documented by: Multivitamins (Multivitamins, Thera 1 Each Tab) 1 each PO DAILY [facility] Last Admin: 10/06/20 07:44 Dose: 1 each Documented by: Naloxone HCl (Naloxone 0.4 Mg/Ml 1 Ml Vial) 0.2 mg IV Q2M PRN PRN Reason: Opioid Reversal Pantoprazole Sodium (Pantoprazole 40 Mg Tablet) 40 mg PO BID [facility] Last Admin: 10/06/20 07:45 Dose: 40 mg Documented by: Tamsulosin HCl (Tamsulosin 0.4 Mg Cap.Er.24h) 0.4 mg PO HS [facility] Last Admin: 10/05/20 20:10 Dose: 0.4 mg Documented by: Zinc Sulfate (Zinc Sulfate 220 Mg Cap) 220 mg PO DAILY [facility] Last Admin: 10/06/20 07:45 Dose: 220 mg Documented by: On examination: VITAL SIGNS: 97.9, 60, 18, 1:30/62, 90% on room air GENERAL APPEARANCE: Reclining in bed, woke comfortable HEENT: Normal external appearance of nose and ear. Oral cavity dry EYES: Pupils equal. Conjunctiva normal. NECK: JVD not raised. Mass not palpable. RESPIRATORY: Respiratory effort increased, decreased breath sounds CARDIOVASCULAR: First and second sounds normal. No edema. ABDOMEN: Soft. Liver and spleen not palpable. No tenderness. No mass palpable. PSYCHIATRY: Answering simple questions INVESTIGATIONS, reviewed in the clinical context: October 06: WBC 10 pro-calcitonin 0.63 October 05: Procalcitonin 1.11 WBC 18.7 hemoglobin 14.2 platelets 208 increased neutrophils potassium 4.3 creatinine 1.2 Coronavirus [PCR]-not detected EKG tracing personally reviewed by me-normal sinus rhythm Q-wave in inferior leads Chest x-ray film personally reviewed by me-right lower lobe infiltrate Hip pelvis x-ray, had cervical spine CT: Negative for fracture. 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 Another 24 hours IV antibiotic. Patient should be able to be discharged to ECF tomorrow.
[2020-10-06] MEDS: TAMSULOSIN 0.4 MG CAP.ER.24H PO SCH (21:08)
[2020-10-07] MEDS: amLODIPine 5 MG TAB PO SCH (07:54)
[2020-10-07] MEDS: ENOXAPARIN 40 MG/0.4 ML SYRINGE SQ SCH (07:54)
[2020-10-07] MEDS: guaiFENesin 600 MG TABLET.ER PO SCH (07:54)
[2020-10-07] MEDS: PANTOPRAZOLE 40 MG TABLET PO SCH (07:54)
[2020-10-07] MEDS: CHOLECALCIFEROL 25 MCG (1000 IU) TABLET PO SCH (07:54)
[2020-10-07] MEDS: ZINC SULFATE 220 MG CAP PO SCH (07:54)
[2020-10-07] MEDS: CYANOCOBALAMIN 500 MCG TAB PO SCH (07:54)
[2020-10-07] MEDS: MULTIVITAMINS, THERA 1 EACH TAB PO SCH (07:54)
[2020-10-07] MEDS: ATORVASTATIN 10 MG TAB PO SCH (07:54)
[2020-10-07] MEDS: ASPIRIN 81 MG PO SCH (07:54)
[2020-10-07 10:55] VITALS: BP 149/81; PULSE 67; TEMP 97.8
--- NOTE | 2020-10-07 11:22 | P.DS ---
Providers Date of admission: 10/03/20 17:57 Expected date of discharge: 10/07/20 Attending physician: Sidney Fortune Primary care physician: Jeffrey Balbuena [facility] Course: Presenting complaint: Fall History of presenting complaint: This is a 85-year-old patient of Dr. Balbuena. Presented with a fall. No fracture was noted. Congested. Found to have pneumonia. Place on IV cefepime. Today-sitting up in a chair. Comfortable. Eating well. Pulse ox 92% on room air. Breathing much improved. We'll change person to oral antibiotics On examination: VITAL SIGNS: 97.8, 67, 18, 149/81, 96% room air GENERAL APPEARANCE: Sitting up in a chair, comfortable EYES: Pupils equal. Conjunctiva normal. NECK: JVD not raised. Mass not palpable. RESPIRATORY: Respiratory effort normal, decreased breath sounds CARDIOVASCULAR: First and second sounds normal. No edema. ABDOMEN: Soft. Liver and spleen not palpable. No tenderness. No mass palpable. PSYCHIATRY: Answering simple questions INVESTIGATIONS, reviewed in the clinical context: October 06: WBC 10 pro-calcitonin 0.63 October 05: Procalcitonin 1.11 WBC 18.7 hemoglobin 14.2 platelets 208 increased neutrophils potassium 4.3 creatinine 1.2 Coronavirus [PCR]-not detected EKG tracing personally reviewed by me-normal sinus rhythm Q-wave in inferior leads Chest x-ray film personally reviewed by me-right lower lobe infiltrate Hip pelvis x-ray, had cervical spine CT: Negative for fracture. 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 Chronic medical debility, and a baseline patient uses a wheelchair - PTOT Disposition: ECF Plan - Discharge Summary Discharge Rx Participant: No New Discharge Prescriptions: New Cefuroxime Axetil [Ceftin] 500 mg PO BID #6 tab Acetaminophen Tab [Tylenol] 650 mg PO Q6HR PRN tab PRN Reason: Mild Pain Or Fever > 100.5 Continue Multivitamins, Thera [Multivitamin (formulary)] 1 tab PO DAILY Aspirin [Adult Low Dose Aspirin EC] 81 mg PO DAILY amLODIPine [Norvasc] 5 mg PO DAILY Tamsulosin [Flomax] 0.4 mg PO HS Atorvastatin [Lipitor] 10 mg PO DAILY Omeprazole 40 mg PO BID Cyanocobalamin (Vitamin B-12) [Vitamin B-12] 1,000 mcg PO DAILY Zinc Gluconate [Zinc] 50 mg PO DAILY Cholecalciferol (Vitamin D3) [Vitamin D3 (5000 Iu)] 125 mcg PO DAILY Discharge Medication List Multivitamins, Thera [Multivitamin (formulary)] 1 tab PO DAILY 10/16/15 [H istory] Aspirin [Adult Low Dose Aspirin EC] 81 mg PO DAILY 11/10/16 [History] Atorvastatin [Lipitor] 10 mg PO DAILY 07/09/18 [History] Cyanocobalamin (Vitamin B-12) [Vitamin B-12] 1,000 mcg PO DAILY 07/09/18 [History] Omeprazole 40 mg PO BID 07/09/18 [History] Tamsulosin [Flomax] 0.4 mg PO HS 07/09/18 [History] amLODIPine [Norvasc] 5 mg PO DAILY 07/09/18 [History] Cholecalciferol (Vitamin D3) [Vitamin D3 (5000 Iu)] 125 mcg PO DAILY 10/03/20 [History] Zinc Gluconate [Zinc] 50 mg PO DAILY 10/03/20 [History] Acetaminophen Tab [Tylenol] 650 mg PO Q6HR PRN tab 10/07/20 [Rx] Cefuroxime Axetil [Ceftin] 500 mg PO BID #6 tab 10/07/20 [Rx] Follow up Appointment(s)/Referral(s): None,Stated [REFERRING] - 1-2 days [facility], [NON-STAFF] - As Needed
--- NOTE | 2020-10-11 08:49 | CDI ---
Documentation Clarification Form Date: 10/11/2020 08:24:00 AM From: Jerald Estrada Phone: Admit Date: 10/03/2020 05:57:00 PM Patient Name: Fernando Harrison Visit Number: [id number] Discharge Date: 10/07/2020 12:42:00 PM ATTENTION: The Clinical Documentation Specialists (CDI) and [facility] Coding Staff appreciate your assistance in clarifying documentation. Please respond to the clarification below the line at the bottom and electronically sign. The CDI & [facility] Coding staff will review the response and follow-up if needed. Please note: Queries are made part of the Legal Health Record. If you have any questions, please contact the author of this message via ITS. Dr. Sidney Fortune The patient presented with the following clinical indicators. Additional clarification regarding the etiology/cause of the clinical indicators is requested. History/Risk Factors: H+P indicates possible sepsis. Discharge summary does not mention sepsis. Clinical Indicators: WBC: 21.8 Lactic acid: Blood cultures: Vitals signs: BP 120/64 Treatment: ID Consult: Antibiotics: IV Bolus: In your professional opinion, please clarify if these findings signify one of the following conditions: [ ] Sepsis POA [ ] Sepsis, Not POA [ ] Sepsis ruled out [ ] Severe Sepsis with organ failure [ ] Septic Shock [ ] SIRS, without underlying infectious process [ ] Other, please specify [ ] Unable to determine SIRS Criteria: 2 or more of the following may indicate SIRS -Temperature < 96.8F (36C) or > 101.0F (38.3C) -Heart Rate > 90 bpm -Respiratory Rate > 20 breaths/min or PaCO2 < 32 mmHg -White Blood Cell Count > 12,000 or < 4,000 cells/mm3 or > 10% bands Sepsis, POA MTDD
== END 2020-10-07 12:42 | DRG 871 ==
LOC: EC 14:38 → SUPCPDRO 14:38 → 4SSUR 17:57
PROVIDERS: ADMIT Hospitalist; ATTEND Hospitalist
DX: A41.9 Sepsis, unspecified organism (principal); J15.6 Pneumonia due to other Gram-negative bacteria; J96.01 Acute respiratory failure with hypoxia; I69.351 Hemiplegia and hemiparesis following cerebral infarction affecting right dominant side; F03.90 Unspecified dementia, unspecified severity, without behavioral disturbance, psychotic disturbance, mood disturbance, and anxiety; Z79.82 Long term (current) use of aspirin; E78.5 Hyperlipidemia, unspecified; I10 Essential (primary) hypertension; Z82.49 Family history of ischemic heart disease and other diseases of the circulatory system; Z20.822 Contact with and (suspected) exposure to COVID-19; Z87.01 Personal history of pneumonia (recurrent); Z87.891 Personal history of nicotine dependence; K21.9 Gastro-esophageal reflux disease without esophagitis; N40.0 Benign prostatic hyperplasia without lower urinary tract symptoms; Z99.3 Dependence on wheelchair; K22.70 Barrett's esophagus without dysplasia; F41.9 Anxiety disorder, unspecified
CPT/HCPCS: 36415; 70450; 71045; 72125; 73521; 80053; 83605; 83735; 83880; 84145; 85025; 86140; 87040; 87635; 93005; 96374; 99291

== ENCOUNTER 2020-10-27 18:34 | Inpatient (IN) | payer MEDICARE, OTHER ==
[2020-10-27] MEDS ORDERED: CEFEPIME 2 GM in SODIUM CHLORIDE 0.9% 100 ML IVPB STA (18:55)
--- NOTE | 2020-10-27 19:37 | ED ---
General Adult HPI - General Chief complaint: Shortness of Breath Stated complaint: SOB Time Seen by Provider: 10/27/20 18:39 Source: patient, family, EMS, RN notes reviewed, old records reviewed Mode of arrival: EMS Limitations: no limitations - History of Present Illness Initial comments: 85 yo male presenting for hypoxia, fever. Patient had a recent admission with pneumonia. He had been transferred to rehab facility and has been home for the past several days. EMS were called for worsening confusion and difficulty breathing. Patient additionally has had reported generalized weakness, fatigue, and several episodes of vomiting. EMS reported the patient was not on supplemental oxygen and was hypoxic in the 70s. History Limited from the [facility]. - Related Data Home Medications Medication Instructions Recorded Confirmed Multivitamins, Thera [Multivitamin 1 tab PO DAILY 10/16/15 10/27/20 (formulary)] Aspirin [Adult Low Dose Aspirin EC] 81 mg PO DAILY 11/10/16 10/27/20 Atorvastatin [Lipitor] 10 mg PO DAILY 07/09/18 10/27/20 Cyanocobalamin (Vitamin B-12) 1,000 mcg PO DAILY 07/09/18 10/27/20 [Vitamin B-12] Omeprazole 40 mg PO BID 07/09/18 10/27/20 Tamsulosin [Flomax] 0.4 mg PO HS 07/09/18 10/27/20 amLODIPine [Norvasc] 5 mg PO DAILY 07/09/18 10/27/20 Cholecalciferol (Vitamin D3) 125 mcg PO DAILY 10/03/20 10/27/20 [Vitamin D3 (5000 Iu)] Zinc Gluconate [Zinc] 50 mg PO DAILY 10/03/20 10/27/20 Allergies Allergy/AdvReac Type Severity Reaction Status Date / Time Penicillins Allergy Unknown Verified 10/27/20 20:12 Childhood Review of Systems ROS Statement: Those systems with pertinent positive or pertinent negative responses have been documented in the HPI. ROS Other: All systems not noted in ROS Statement are negative. 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 - Past Family History Father History Unknown: Yes Mother Family Medical History: CVA/TIA, Dementia Additional Family Medical History / Comment(s): at age 94 or 95 General Exam Limitations: no limitations General appearance: lethargic Head exam: Present: atraumatic, normocephalic Eye exam: Present: normal appearance ENT exam: Present: mucous membranes dry Neck exam: Present: normal inspection. Absent: tenderness, meningismus Respiratory exam: Present: respiratory distress, rhonchi, decreased breath sounds Cardiovascular Exam: Present: normal rhythm, tachycardia GI/Abdominal exam: Present: soft. Absent: distended, tenderness, guarding, rebound Extremities exam: Present: normal inspection, normal capillary refill. Absent: pedal edema, calf tenderness Neurological exam: Present: alert. Absent: motor sensory deficit Skin exam: Present: warm, dry, intact. Absent: cyanosis, diaphoretic Course Vital Signs 10/27/20 10/27/20 18:38 18:43 Temperature 100 F H Pulse Rate 111 H Respiratory 20 16 Rate Blood Pressure 132/68 O2 Sat by Pulse 85 L 92 L Oximetry EKG Findings - EKG Comments: EKG Findings:: Sinus rhythm with PAC, left atrial enlargement, left axis, rate of 91, PA interval 146, QRS duration 82, QTC [address] segment elevation. Medical Decision Making - Medical Decision Making 85-year-old male presenting with fever, generalized weakness, hypoxia. Patient does have a right sided pneumonia worse on x-ray from previous admission. He has a white count 17,000. He does require supplemental oxygen by nasal cannula. Hemodynamics are stable. He is given IV hydration, started on cefepime as he does have a penicillin ALLERGY. He is also given azithromycin and vancomycin. Discussed case with Dr. Cade who is covering for Dr. Kwasi Arevalo, we will admit to internal medicine with pulmonology on consult. - Lab Data Result diagrams: 10/27/20 19:37 10/27/20 19:37 Lab Results 10/27/20 10/27/20 10/27/20 Range/Units 19:37 19:37 19:37 WBC 17.1 H (3.8-10.6) k/uL RBC 4.92 (4.30-5.90) m/uL Hgb 15.4 (13.0-17.5) gm/dL Hct 46.9 (39.0-53.0) % MCV 95.2 (80.0-100.0) fL MCH 31.4 (25.0-35.0) pg MCHC 32.9 (31.0-37.0) g/dL RDW 12.7 (11.5-15.5) % Plt Count 216 (150-450) k/uL MPV 8.2 Neutrophils % 92 % Lymphocytes % 2 % Monocytes % 3 % Eosinophils % 2 % Basophils % 1 % Neutrophils # 15.8 H (1.3-7.7) k/uL Lymphocytes # 0.4 L (1.0-4.8) k/uL Monocytes # 0.5 (0-1.0) k/uL Eosinophils # 0.3 (0-0.7) k/uL Basophils # 0.1 (0-0.2) k/uL Sodium 140 (137-145) mmol/L Potassium 4.3 (3.5-5.1) mmol/L Chloride 103 (98-107) mmol/L Carbon Dioxide 27 (22-30) mmol/L Anion Gap 10 mmol/L BUN 17 (9-20) mg/dL Creatinine 0.94 (0.66-1.25) mg/dL Est GFR (CKD-EPI)AfAm 87 (>60 ml/min/1.73 sqM) Est GFR (CKD-EPI)NonAf 75 (>60 ml/min/1.73 sqM) Glucose 137 H (74-99) mg/dL Plasma Lactic Acid Chago 1.2 (0.7-2.0) mmol/L Calcium 9.2 (8.4-10.2) mg/dL Total Bilirubin 1.0 (0.2-1.3) mg/dL AST 26 (17-59) U/L ALT 15 (4-49) U/L Alkaline Phosphatase 135 H (38-126) U/L Total Protein 6.9 (6.3-8.2) g/dL Albumin 3.9 (3.5-5.0) g/dL Disposition Clinical Impression: Pneumonia, Hypoxia, Weakness Disposition: ADMITTED IP TO THIS HOSP Condition: Stable Is patient prescribed a controlled substance at d/c from ED?: No Referrals: Jeffrey Balbuena DO [Primary Care Provider] - 1-2 days Decision to Admit Reason: Admit from EC Decision Date: 10/27/20 Decision Time: 20:17
--- NOTE | 2020-10-27 19:50 | XR ---
EXAMINATION TYPE: XR chest 1V DATE OF EXAM: 10/27/2020 COMPARISON: 10/03/2020 HISTORY: Fall. Hip pain. TECHNIQUE: Single view FINDINGS: There is some patchy infiltrate in the right lung. There is slight elevated right diaphragm . Left lung is clear. There is no heart failure. There are no hilar masses. Thoracic aorta is atherom atous. Trachea deviated slightly to the right side. IMPRESSION: There is some infiltrate and atelectasis in the right lung that is slightly worse than la st exam. No heart failure.
[2020-10-27 20:02] LABS: Basophils # (A) 0.1 k/uL (0-0.2); Basophils % (A) 1 %; Eosinophils # (A) 0.3 k/uL (0-0.7); Eosinophils % (A) 2 %; HCT 46.9 % (39.0-53.0); HGB 15.4 gm/dL (13.0-17.5); Lymphocytes # (A) 0.4 k/uL (1.0-4.8); Lymphocytes % (A) 2 %; MCH 31.4 pg (25.0-35.0); MCHC 32.9 g/dL (31.0-37.0); MCV 95.2 fL (80.0-100.0); Mean Platelet Volume 8.2; Monocytes # (A) 0.5 k/uL (0-1.0); Monocytes % (A) 3 %; Neutrophils # (A) 15.8 k/uL (1.3-7.7); Neutrophils % (A) 92 %; Platelet Count 216 k/uL (150-450); RBC 4.92 m/uL (4.30-5.90); RDW 12.7 % (11.5-15.5); WBC 17.1 k/uL (3.8-10.6)
[2020-10-27 20:10] LABS: Albumin 3.9 g/dL (3.5-5.0); Calcium 9.2 mg/dL (8.4-10.2); Potassium 4.3 mmol/L (3.5-5.1); Total Protein 6.9 g/dL (6.3-8.2)
[2020-10-27] MEDS ORDERED: VANCOMYCIN IV PER PHARMACY 1 EACH MISC MISCELLANE PRN (20:15)
[2020-10-27] MEDS ORDERED: AZITHROMYCIN 500 MG in SODIUM CHLORIDE 0.9% 250 ML IVPB STA (20:15)
[2020-10-27 20:18] LABS: Partial Thromboplastin Time 23.9 sec (22.0-30.0); Prothrombin Time 10.9 sec (9.0-12.0)
[2020-10-27] MEDS ORDERED: NALOXONE 0.4 MG/ML 1 ML VIAL IV PRN (20:18)
[2020-10-27] MEDS ORDERED: ACETAMINOPHEN TAB 325 MG TAB PO PRN (20:18)
[2020-10-27] MEDS ORDERED: VANCOMYCIN 1,500 MG in SODIUM CHLORIDE 0.9% 250 ML IVPB ONE (20:30)
[2020-10-27] MEDS: SODIUM CHLORIDE 0.9% 1,000 ML IV SCH (21:19)
[2020-10-27] MEDS: CEFEPIME 2 GM in SODIUM CHLORIDE 0.9% 100 ML IVPB SCH (23:30)
[2020-10-28] MEDS: SODIUM CHLORIDE 0.9% 1,000 ML IV SCH ×3 (04:00→15:07)
[2020-10-28] MEDS: CHOLECALCIFEROL 25 MCG (1000 IU) TABLET PO SCH (08:35)
[2020-10-28] MEDS: PANTOPRAZOLE 40 MG TABLET PO SCH ×2 (08:36→16:45)
[2020-10-28] MEDS: amLODIPine 5 MG TAB PO SCH (08:36)
[2020-10-28] MEDS: MULTIVITAMINS, THERA 1 EACH TAB PO SCH (08:36)
[2020-10-28] MEDS: CEFEPIME 2 GM in SODIUM CHLORIDE 0.9% 100 ML IVPB SCH ×3 (08:36→23:33)
[2020-10-28] MEDS: ASPIRIN 81 MG PO SCH (08:36)
[2020-10-28] MEDS: ATORVASTATIN 10 MG TAB PO SCH (08:36)
[2020-10-28] MEDS: ZINC SULFATE 220 MG CAP PO SCH (08:36)
[2020-10-28] MEDS: CYANOCOBALAMIN 500 MCG TAB PO SCH (08:36)
[2020-10-28] MEDS ORDERED: VANCOMYCIN 1,500 MG in SODIUM CHLORIDE 0.9% 250 ML IVPB SCH (09:00)
[2020-10-28 09:43] LABS: African American GFR (CKD) 64.4 (60.0-200.0); Non-African American GFR(CKD) 55.6 (60.0-200.0)
--- NOTE | 2020-10-28 11:08 | P.CNPUL ---
History of Present Illness Consult date: 10/28/20 Reason for consult: dyspnea, cough Chief complaint: Shortness of breath History of present illness: This is a pleasant 85-year-old male seen eval reexamined on fourth floor patient is not a poor historian most of the data has been obtained from the chart, patient was at [facility] where worsening confusion was noted also patient started complaining of nausea vomiting generalized weakness and fatigue, his saturation on arrival was noted to be in 70%, his past medical history significant for hypertension hypertensive cardiovascular disease dyslipidemia along with 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, with supplemental oxygen saturation continued to improve currently patient is on 3 L oxygen sats are 92%, admitted chest x-ray showed worsening right-sided pneumonia, white cell count is 17,000, patient has been placed on the cefepime vancomycin is the mycin, admitted into the hospital Review of Systems ROS unobtainable: due to mental status All systems: negative 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, uses wheelchair, has memory problems, hx falls, HIATAL HERNIA, BARRETTS ESOPHAGUS, eczema, History of Any Multi-Drug Resistant Organisms: None Reported Past Surgical History: Adenoidectomy, Tonsillectomy Additional Past Surgical History / Comment(s): rt carotid endarterrectomy, brain surgery for aneurysm, feeding tube/later removed, Past Anesthesia/Blood Transfusion Reactions: No Reported Reaction Past Psychological History: Anxiety Smoking Status: Former smoker Past Alcohol Use History: Daily Additional Past Alcohol Use History / Comment(s): quit smoking about 24 yrs ago, smoked for about 35 yrs- cigars, 1 drink nightly Past Drug Use History: None Reported - Past Family History Father History Unknown: Yes Mother Family Medical History: CVA/TIA, Dementia Additional Family Medical History / Comment(s): at age 94 or 95 Medications and Allergies Home Medications Medication Instructions Recorded Confirmed Type Multivitamins, Thera [Multivitamin 1 tab PO DAILY 10/16/15 10/27/20 History (formulary)] Aspirin [Adult Low Dose Aspirin EC] 81 mg PO DAILY 11/10/16 10/27/20 History Atorvastatin [Lipitor] 10 mg PO DAILY 07/09/18 10/27/20 History Cyanocobalamin (Vitamin B-12) 1,000 mcg PO DAILY 07/09/18 10/27/20 History [Vitamin B-12] Omeprazole 40 mg PO BID 07/09/18 10/27/20 History Tamsulosin [Flomax] 0.4 mg PO HS 07/09/18 10/27/20 History amLODIPine [Norvasc] 5 mg PO DAILY 07/09/18 10/27/20 History Cholecalciferol (Vitamin D3) 125 mcg PO DAILY 10/03/20 10/27/20 History [Vitamin D3 (5000 Iu)] Zinc Gluconate [Zinc] 50 mg PO DAILY 10/03/20 10/27/20 History Allergies Allergy/AdvReac Type Severity Reaction Status Date / Time Penicillins Allergy Unknown Verified 10/27/20 20:12 Childhood Physical Exam Vitals: Vital Signs Temp Pulse Pulse Resp BP BP Pulse Ox 10/28/20 08:00 98 F 72 16 131/68 92 L 10/28/20 02:18 98.7 F 79 17 143/76 90 L 10/27/20 22:35 99.5 F 74 18 129/60 95 10/27/20 21:00 99.2 F 94 18 137/82 94 L 10/27/20 18:43 16 92 L 10/27/20 18:38 100 F H 111 H 20 132/68 85 L Intake and Output 10/27/20 10/28/20 10/28/20 22:59 06:59 14:59 Intake Total 476 Balance 476 Intake: Oral 476 Other: Voiding Method Urinal Diaper Diaper # Voids 1 Weight 81.647 kg - Constitutional General appearance: average body habitus, cooperative, disheveled, mild distress - EENT Eyes: EOMI, PERRLA Ears: bilateral: normal - Neck Carotids: bilateral: upstroke normal Thyroid: bilateral: normal size - Respiratory Respiratory: bilateral: diminished, rales (Predominantly at the bases more so on the right side) - Cardiovascular Rhythm: regular Heart sounds: normal: S1, S2 - Gastrointestinal General gastrointestinal: normal bowel sounds, soft - Integumentary Integumentary: normal turgor - Neurologic Neurologic: CNII-XII intact - Musculoskeletal Musculoskeletal: gait normal, generalized weakness, strength equal bilaterally Results - Laboratory Findings CBC and BMP: 10/27/20 19:37 10/28/20 06:03 PT/INR, D-dimer PT 10.9 sec (9.0-12.0) 10/27/20 19:37 INR 1.0 (<1.2) 10/27/20 19:37 Abnormal lab findings: Abnormal Labs 10/27/20 10/27/20 10/28/20 19:37 19:37 06:03 WBC 17.1 H Neutrophils # 15.8 H Lymphocytes # 0.4 L Est GFR (CKD-EPI)NonAf 55.6 L Glucose 137 H Alkaline Phosphatase 135 H - Diagnostic Findings Chest x-ray: report reviewed, image reviewed (Finding as noted above) Assessment and Plan Assessment: Right-sided pneumonia with sepsis Acute hypoxic respiratory failure due to pneumonia Hypertension hypertensive cardiovascular disease Baseline dementia and is I'm is disease Plan: Blood culture Sputum culture Broad-spectrum antibiotics Supplemental oxygen, titrated down as tolerated PT OT evaluation Continue home medications DVT prophylaxis Further plan of care as per clinical response of patient Time with Patient: Greater than 30
[2020-10-28] MEDS: ENOXAPARIN 30 MG/0.3 ML SYRINGE SQ SCH (11:22)
[2020-10-28] MEDS: TAMSULOSIN 0.4 MG CAP.ER.24H PO SCH (20:10)
--- NOTE | 2020-10-28 20:38 | P.HPIM ---
History of Present Illness H&P Date: 10/28/20 Chief Complaint: Increased shortness of breath History of presenting complaint: This is a 85-year-old patient of Dr. Balbuena. 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 Earlier this month patient was admitted with pneumonia and sent to the [facility] for rehab. EMS was called out at home. Patient stated he was feeling funny. Does not chest pain or body aches. Patient's pulse ox on room air was 80%. Put on high flow oxygen via nonrebreather. Patient did vomit. Patient not able to give a decent history. Denies any fever and chills. Had a low-grade fever of 100 in the ER. Pulse ox was 85%. Review of systems: GEN.: Tired EYES: [None] HEENT: [None] NECK: [None] RESPIRATORY: [Cough shortness of breath] CARDIOVASCULAR: [None] GASTROINTESTINAL: [None] GENITOURINARY: [None] MUSCULOSKELETAL: [None] LYMPHATICS: [None] HEMATOLOGICAL: [None] PSYCHIATRY: [Somewhat confused] NEUROLOGICAL: [Right-sided weakness]. Past medical history to include: Hypertension, hyperlipidemia, BPH, moderate cognitive impairment from prior stroke, GERD, right-sided weakness from prior stroke, dysarthria, chronic medical debility using a wheelchair Social history: This with family. Patient smoked for about 35 years, cigars. Stop smoking more 24 years ago. One drink at night. On examination: VITAL SIGNS: 100, 111, 20, 132/68, 85% on room air GENERAL APPEARANCE: He planning in bed, awake, tired EYES: Pupils equal. Conjunctiva normal. NECK: JVD not raised. Mass not palpable. RESPIRATORY: Respiratory effort increased, decreased breath sounds CARDIOVASCULAR: First and second sounds normal. No edema. ABDOMEN: Soft. Liver and spleen not palpable. No tenderness. No mass palpable. PSYCHIATRY: Answering some questions LYMPH : No lymph nodes palpable in neck and axilla NEUROLOGICAL: Platelets grossly intact. Slight dysarthria. Right-sided weakness 3/5 INVESTIGATIONS, reviewed in the clinical context: WBC 17.1 hemoglobin 15.4 platelets 216 potassium 4.3 creatinine 0.94 Influenza type A, type B, RSV, COVID 19: Not detected EKG tracing personally reviewed by me-normal sinus rhythm Chest x-ray film personally reviewed by [id number] infiltrate Assessment and plan: Right sided pneumonia, suspect gram-negative organism, - IV cefepime 2 g every 8. 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 Home medications reviewed. Lovenox for DVT prophylaxis. 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, uses wheelchair, has memory problems, hx falls, HIATAL HERNIA, BARRETTS ESOPHAGUS, eczema, History of Any Multi-Drug Resistant Organisms: None Reported Past Surgical History: Adenoidectomy, Tonsillectomy Additional Past Surgical History / Comment(s): rt carotid endarterrectomy, brain surgery for aneurysm, feeding tube/later removed, Past Anesthesia/Blood Transfusion Reactions: No Reported Reaction Past Psychological History: Anxiety Smoking Status: Former smoker Past Alcohol Use History: Daily Additional Past Alcohol Use History / Comment(s): quit smoking about 24 yrs ago, smoked for about 35 yrs- cigars, 1 drink nightly Past Drug Use History: None Reported - Past Family History Father History Unknown: Yes Mother Family Medical History: CVA/TIA, Dementia Additional Family Medical History / Comment(s): at age 94 or 95 Medications and Allergies Home Medications Medication Instructions Recorded Confirmed Type Multivitamins, Thera [Multivitamin 1 tab PO DAILY 10/16/15 10/27/20 History (formulary)] Aspirin [Adult Low Dose Aspirin EC] 81 mg PO DAILY 11/10/16 10/27/20 History Atorvastatin [Lipitor] 10 mg PO DAILY 07/09/18 10/27/20 History Cyanocobalamin (Vitamin B-12) 1,000 mcg PO DAILY 07/09/18 10/27/20 History [Vitamin B-12] Omeprazole 40 mg PO BID 07/09/18 10/27/20 History Tamsulosin [Flomax] 0.4 mg PO HS 07/09/18 10/27/20 History amLODIPine [Norvasc] 5 mg PO DAILY 07/09/18 10/27/20 History Cholecalciferol (Vitamin D3) 125 mcg PO DAILY 10/03/20 10/27/20 History [Vitamin D3 (5000 Iu)] Zinc Gluconate [Zinc] 50 mg PO DAILY 10/03/20 10/27/20 History Allergies Allergy/AdvReac Type Severity Reaction Status Date / Time Penicillins Allergy Unknown Verified 10/27/20 20:12 Childhood Physical Exam Vitals: Vital Signs Temp Pulse Pulse Resp BP BP Pulse Ox 10/28/20 08:00 98 F 72 16 131/68 92 L 10/28/20 02:18 98.7 F 79 17 143/76 90 L 10/27/20 22:35 99.5 F 74 18 129/60 95 10/27/20 21:00 99.2 F 94 18 137/82 94 L 10/27/20 18:43 16 92 L 10/27/20 18:38 100 F H 111 H 20 132/68 85 L Intake and Output 10/27/20 10/28/20 10/28/20 22:59 06:59 14:59 Intake Total 476 Balance 476 Intake: Oral 476 Other: Voiding Method Urinal Diaper Diaper # Voids 1 Weight 81.647 kg Results CBC & Chem 7: 10/27/20 19:37 10/28/20 06:03 Labs: Abnormal Lab Results - Last 24 Hours (Table) 10/27/20 10/27/20 10/28/20 Range/Units 19:37 19:37 06:03 WBC 17.1 H (3.8-10.6) k/uL Neutrophils # 15.8 H (1.3-7.7) k/uL Lymphocytes # 0.4 L (1.0-4.8) k/uL Est GFR (CKD-EPI)NonAf 55.6 L (60.0-200.0) Glucose 137 H (74-99) mg/dL Alkaline Phosphatase 135 H (38-126) U/L Thrombosis Risk Factor Assmnt - Choose All That Apply Each Risk Factor Represents 3 Points: Age 75 years or older Thrombosis Risk Factor Assessment Total Risk Factor Score: 3 Thrombosis Risk Factor Assessment Level: Moderate Risk
[2020-10-29] MEDS: SODIUM CHLORIDE 0.9% 1,000 ML IV SCH ×3 (00:50→16:05)
[2020-10-29] MEDS ORDERED: VANCOMYCIN 1,500 MG in SODIUM CHLORIDE 0.9% 250 ML IVPB SCH (01:00)
[2020-10-29 07:03] LABS: African American GFR (CKD) 78 (>60 ml/min/1.73 sqM); Anion Gap 4 mmol/L; Blood Urea Nitrogen 21 mg/dL (9-20); Calcium 8.5 mg/dL (8.4-10.2); Carbon Dioxide 26 mmol/L (22-30); Chloride 107 mmol/L (98-107); Glucose 86 mg/dL (74-99); Non-African American GFR(CKD) 67 (>60 ml/min/1.73 sqM); Potassium 4.1 mmol/L (3.5-5.1); Sodium 137 mmol/L (137-145)
[2020-10-29] MEDS: ASPIRIN 81 MG PO SCH (08:14)
[2020-10-29] MEDS: CYANOCOBALAMIN 500 MCG TAB PO SCH (08:14)
[2020-10-29] MEDS: CHOLECALCIFEROL 25 MCG (1000 IU) TABLET PO SCH (08:14)
[2020-10-29] MEDS: ZINC SULFATE 220 MG CAP PO SCH (08:14)
[2020-10-29] MEDS: PANTOPRAZOLE 40 MG TABLET PO SCH ×2 (08:14→16:02)
[2020-10-29] MEDS: ENOXAPARIN 30 MG/0.3 ML SYRINGE SQ SCH (08:14)
[2020-10-29] MEDS: ATORVASTATIN 10 MG TAB PO SCH (08:14)
[2020-10-29] MEDS: amLODIPine 5 MG TAB PO SCH (08:14)
[2020-10-29] MEDS: CEFEPIME 2 GM in SODIUM CHLORIDE 0.9% 100 ML IVPB SCH ×3 (08:14→23:24)
[2020-10-29] MEDS: MULTIVITAMINS, THERA 1 EACH TAB PO SCH (08:14)
--- NOTE | 2020-10-29 10:20 | P.PN ---
Subjective Progress Note Date: 10/29/20 Principal diagnosis: Right-sided pneumonia with sepsis Acute hypoxic respiratory failure due to pneumonia Hypertension hypertensive cardiovascular disease Baseline dementia and is I'm is disease Gram-positive bacteremia coag-negative likely contaminant 10/29/2020, patient seen eval examined during the rounds labs reviewed medications reviewed care plan discussed, respiratory status better now patient sitting upright in the chair, blood culture came back positive for coag-negative staph likely contaminant, seen in 1 out of 2 bottles, CN saturation is 90% liter oxygen, blood pressure stable patient remains afebrile, chemistry done today reviewed BUN/creatinine is 21 and 1.03, influenza A and B are both negative, patient remains on Cefapime and vancomycin, would recommend to repeat the blood culture vancomycin however can be discontinued This is a pleasant 85-year-old male seen eval reexamined on fourth floor patient is not a poor historian most of the data has been obtained from the chart, patient was at [facility] where worsening confusion was noted also patient started complaining of nausea vomiting generalized weakness and fatigue, his saturation on arrival was noted to be in 70%, his past medical history significant for hypertension hypertensive cardiovascular disease dyslipidemia along with 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, with supplemental oxygen saturation continued to improve currently patient is on 3 L oxygen sats are 92%, admitted chest x-ray showed worsening right-sided pneumonia, white cell count is 17,000, patient has been placed on the cefepime vancomycin is the mycin, admitted into the hospital Objective - Vital Signs Vital signs: Vital Signs Temp 97.8 F 10/29/20 08:00 Pulse 67 10/29/20 08:00 Resp 18 10/29/20 08:00 BP 146/67 10/29/20 08:00 Pulse Ox 90 L 10/29/20 08:00 Intake & Output 10/28/20 10/29/20 10/29/20 18:59 06:59 18:59 Intake Total 712 Output Total 1500 Balance 712 -1500 Intake: Oral 712 Output: Urine 1500 Other: Voiding Method Diaper Diaper Incontinent Incontinent # Voids 2 - Exam - Constitutional General appearance: average body habitus, cooperative, disheveled, mild distress - EENT Eyes: EOMI, PERRLA Ears: bilateral: normal - Neck Carotids: bilateral: upstroke normal Thyroid: bilateral: normal size - Respiratory Respiratory: bilateral: diminished, rales (Predominantly at the bases more so on the right side) - Cardiovascular Rhythm: regular Heart sounds: normal: S1, S2 - Gastrointestinal General gastrointestinal: normal bowel sounds, soft - Integumentary Integumentary: normal turgor - Neurologic Neurologic: CNII-XII intact - Musculoskeletal Musculoskeletal: gait normal, generalized weakness, strength equal bilaterally - Labs CBC & Chem 7: 10/27/20 19:37 10/29/20 06:23 Labs: Abnormal Lab Results - Last 24 Hours (Table) 10/29/20 Range/Units 06:23 BUN 21 H (9-20) mg/dL Microbiology - Last 24 Hours (Table) 10/27/20 19:37 Blood Culture Gram Stain - Preliminary Blood Blood Culture - Preliminary Coagulase Negative Staph 10/27/20 19:37 Blood Culture - Preliminary Blood No Growth after 24 hours 10/27/20 19:37 Blood Culture - Final Blood Assessment and Plan Assessment: Right-sided pneumonia with sepsis Acute hypoxic respiratory failure due to pneumonia Hypertension hypertensive cardiovascular disease Baseline dementia and Alzheimer's disease Coag-negative bacteremia likely contaminant Plan: Repeat Blood culture Sputum culture Broad-spectrum antibiotics, vancomycin can be discontinued continue Cefapime Supplemental oxygen, titrated down as tolerated PT OT evaluation Continue home medications DVT prophylaxis Further plan of care as per clinical response of patient Time with Patient: Greater than 30
[2020-10-29] MEDS ORDERED: VANCOMYCIN TROUGH DUE 1 EACH MISC MISCELLANE ONE (16:00)
--- NOTE | 2020-10-29 19:46 | P.PN ---
Progress Note - Text Progress Note Date: 10/29/20 Chief Complaint: Increased shortness of breath History of presenting complaint: This is a 85-year-old patient of Dr. Balbuena. 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 Earlier this month patient was admitted with pneumonia and [facility]. EMS was called out at [facility]. Patient stated he was feeling funny. Does not chest pain or body aches. Patient's pulse ox on room air was 80%. Put on high flow oxygen via nonrebreather. Patient did vomit. Patient not able to give a decent history. Denies any fever and chills. Had a low-grade fever of 100 in the ER. Pulse ox was 85%. Admitted with hypoxia, pneumonia. Started IV cefepime, oxygen support. Today: Laying in bed. Sounded less congested. Oral intake about 50%. Tired. Review of systems: Was done for constitutional, cardiovascular, GI, pulmonary. relevant finding as above Active Medications Acetaminophen (Acetaminophen Tab 325 Mg Tab) 650 mg PO Q6HR PRN PRN Reason: Mild Pain or Fever > 100.5 Amlodipine Besylate (Amlodipine 5 Mg Tab) 5 mg PO DAILY [facility] Last Admin: 10/29/20 08:14 Dose: 5 mg Documented by: Aspirin (Aspirin 81 Mg) 81 mg PO DAILY [facility] Last Admin: 10/29/20 08:14 Dose: 81 mg Documented by: Atorvastatin Calcium (Atorvastatin 10 Mg Tab) 10 mg PO DAILY [facility] Last Admin: 10/29/20 08:14 Dose: 10 mg Documented by: Cholecalciferol (Cholecalciferol 25 Mcg (1000 Iu) Tablet) 125 mcg PO DAILY [facility] Last Admin: 10/29/20 08:14 Dose: 125 mcg Documented by: Cyanocobalamin (Cyanocobalamin 500 Mcg Tab) 1,000 mcg PO DAILY [facility] Last Admin: 10/29/20 08:14 Dose: 1,000 mcg Documented by: Enoxaparin Sodium (Enoxaparin 30 Mg/0.3 Ml Syringe) 30 mg SQ DAILY [facility] Last Admin: 10/29/20 08:14 Dose: 30 mg Documented by: Cefepime HCl 2 gm/ Sodium (Chloride) 100 mls @ 25 mls/hr IVPB Q8HR [facility] Last Admin: 10/29/20 16:02 Dose: 25 mls/hr Documented by: Sodium Chloride (Saline 0.9%) 1,000 mls @ 130 mls/hr IV .[id number] [facility] Last Admin: 10/29/20 16:05 Dose: 130 mls/hr Documented by: Multivitamins (Multivitamins, Thera 1 Each Tab) 1 each PO DAILY [facility] Last Admin: 10/29/20 08:14 Dose: 1 each Documented by: Naloxone HCl (Naloxone 0.4 Mg/Ml 1 Ml Vial) 0.2 mg IV Q2M PRN PRN Reason: Opioid Reversal Pantoprazole Sodium (Pantoprazole 40 Mg Tablet) 40 mg PO AC-BID [facility] Last Admin: 10/29/20 16:02 Dose: 40 mg Documented by: Tamsulosin HCl (Tamsulosin 0.4 Mg Cap.Er.24h) 0.4 mg PO HS [facility] Last Admin: 10/28/20 20:10 Dose: 0.4 mg Documented by: Zinc Sulfate (Zinc Sulfate 220 Mg Cap) 220 mg PO DAILY [facility] Last Admin: 10/29/20 08:14 Dose: 220 mg Documented by: Past medical history to include: Hypertension, hyperlipidemia, BPH, moderate cognitive impairment from prior stroke, GERD, right-sided weakness from prior stroke, dysarthria, chronic medical debility using a wheelchair Social history: This with family. Patient smoked for about 35 years, cigars. Stop smoking more 24 years ago. One drink at night. On examination: VITAL SIGNS: 98, 77, 20, 1 34 x 51, 91% on 3 L GENERAL APPEARANCE: Laying in bed, awake, tired EYES: Pupils equal. Conjunctiva normal. NECK: JVD not raised. Mass not palpable. RESPIRATORY: Respiratory effort increased, decreased breath sounds CARDIOVASCULAR: First and second sounds normal. No edema. ABDOMEN: Soft. Liver and spleen not palpable. No tenderness. No mass palpable. PSYCHIATRY: Answering some questions NEUROLOGICAL: . Slight dysarthria. Right-sided weakness 3/5 INVESTIGATIONS, reviewed in the clinical context: October 29: Potassium 4.1 creatinine 1.03 WBC 17.1 hemoglobin 15.4 platelets 216 potassium 4.3 creatinine 0.94 Influenza type A, type B, RSV, COVID 19: Not detected EKG tracing personally reviewed by me-normal sinus rhythm Chest x-ray film personally reviewed by [id number] infiltrate Assessment and plan: Right sided pneumonia, suspect gram-negative organism, -slow to respond - IV cefepime 2 g every 8. 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
[2020-10-29] MEDS: TAMSULOSIN 0.4 MG CAP.ER.24H PO SCH (20:47)
[2020-10-30 06:26] LABS: Basophils % (A) 0 %; Eosinophils # (A) 0.6 k/uL (0-0.7); Eosinophils % (A) 6 %; HCT 38.6 % (39.0-53.0); Lymphocytes # (A) 0.7 k/uL (1.0-4.8); Lymphocytes % (A) 6 %; MCH 31.9 pg (25.0-35.0); MCHC 33.7 g/dL (31.0-37.0); MCV 94.6 fL (80.0-100.0); Monocytes # (A) 0.5 k/uL (0-1.0); Monocytes % (A) 5 %; Neutrophils # (A) 8.9 k/uL (1.3-7.7); Neutrophils % (A) 82 %; Platelet Count 147 k/uL (150-450); RBC 4.08 m/uL (4.30-5.90); RDW 12.4 % (11.5-15.5); WBC 10.8 k/uL (3.8-10.6)
[2020-10-30 06:42] LABS: Chloride 106 mmol/L (98-107)
[2020-10-30 06:44] LABS: African American GFR (CKD) >90 (>60 ml/min/1.73 sqM); Anion Gap 6 mmol/L; Blood Urea Nitrogen 17 mg/dL (9-20); Calcium 8.9 mg/dL (8.4-10.2); Carbon Dioxide 26 mmol/L (22-30); Glucose 98 mg/dL (74-99); Non-African American GFR(CKD) 82 (>60 ml/min/1.73 sqM); Sodium 138 mmol/L (137-145)
[2020-10-30] MEDS: PANTOPRAZOLE 40 MG TABLET PO SCH ×2 (08:59→18:25)
[2020-10-30] MEDS: ENOXAPARIN 30 MG/0.3 ML SYRINGE SQ SCH (09:00)
[2020-10-30] MEDS: MULTIVITAMINS, THERA 1 EACH TAB PO SCH (09:00)
[2020-10-30] MEDS: ZINC SULFATE 220 MG CAP PO SCH (09:00)
[2020-10-30] MEDS: CYANOCOBALAMIN 500 MCG TAB PO SCH (09:00)
[2020-10-30] MEDS: ATORVASTATIN 10 MG TAB PO SCH (09:00)
[2020-10-30] MEDS: ASPIRIN 81 MG PO SCH (09:00)
[2020-10-30] MEDS: CHOLECALCIFEROL 25 MCG (1000 IU) TABLET PO SCH (09:00)
[2020-10-30] MEDS: amLODIPine 5 MG TAB PO SCH (09:00)
--- NOTE | 2020-10-30 10:12 | XR ---
EXAMINATION TYPE: XR chest 2V DATE OF EXAM: 10/30/2020 COMPARISON: 10/27/2020 HISTORY: Shortness of breath TECHNIQUE: Frontal and lateral views of the chest are obtained. FINDINGS: There are interstitial and partially consolidative opacities in the right upper and right lower lobes with mild interval worsening compared to the prior study. Left lung is clear. There is no pneumothorax or pleural effusion. Heart size is normal. The mediastinum is unremarkable. The osseous structures are intact. Impression: interval worsening in the right upper and lower lobe lung infiltrates. Findings suggest ethan of pneumonia. Clinical correlation and short-term follow-up to resolution is recommended.
[2020-10-30] MEDS ORDERED: FUROSEMIDE 10 MG/ML 4 ML VIAL IV STA (11:11)
--- NOTE | 2020-10-30 11:11 | P.PN ---
Subjective Progress Note Date: 10/30/20 Principal diagnosis: Right-sided pneumonia with sepsis Acute hypoxic respiratory failure due to pneumonia Hypertension hypertensive cardiovascular disease Baseline dementia and is I'm is disease Gram-positive bacteremia coag-negative likely contaminant 10/30/2020, patient seen eval examined during the rounds labs reviewed medications reviewed care plan discussed respiratory status remains stable, and denies any chest pain remains on 3 L oxygen, remains on antibiotics, afebrile saturation is 91% on 2 L, chest x-ray performed today shows worsening of pneumonia and right upper lobe and lower lobe, patient remains on cephapime, white cell count is improving, BUN/creatinine near normalized, suspect worsening of x-ray may very well be due to fluid overload consider some Lasix and stopping IV fluid 10/29/2020, patient seen eval examined during the rounds labs reviewed m edications reviewed care plan discussed, respiratory status better now patient sitting upright in the chair, blood culture came back positive for coag-negative staph likely contaminant, seen in 1 out of 2 bottles, CN saturation is 90% liter oxygen, blood pressure stable patient remains afebrile, chemistry done today reviewed BUN/creatinine is 21 and 1.03, influenza A and B are both negative, patient remains on Cefapime and vancomycin, would recommend to repeat the blood culture vancomycin however can be discontinued This is a pleasant 85-year-old male seen eval reexamined on fourth floor patient is not a poor historian most of the data has been obtained from the chart, patient was [facility] where worsening confusion was noted also patient started complaining of nausea vomiting generalized weakness and fatigue, his saturation on arrival was noted to be in 70%, his past medical history significant for hypertension hypertensive cardiovascular disease dyslipidemia along with 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, with supplemental oxygen saturation continued to improve currently patient is on 3 L oxygen sats are 92%, admitted chest x-ray showed worsening right-sided pneumonia, white cell count is 17,000, patient has been placed on the cefepime vancomycin is the mycin, admitted into the hospital Objective - Vital Signs Vital signs: Vital Signs Temp 97.6 F 10/30/20 08:00 Pulse 85 10/30/20 08:00 Resp 20 10/30/20 08:00 BP 178/69 10/30/20 08:00 Pulse Ox 91 L 10/30/20 08:00 Intake & Output 10/29/20 10/30/20 10/30/20 18:59 06:59 18:59 Other: Voiding Method Diaper Diaper Incontinent Incontinent Incontinent # Voids 3 1 - Exam - Constitutional General appearance: average body habitus, cooperative, disheveled, mild distress - EENT Eyes: EOMI, PERRLA Ears: bilateral: normal - Neck Carotids: bilateral: upstroke normal Thyroid: bilateral: normal size - Respiratory Respiratory: bilateral: diminished, rales (Predominantly at the bases more so on the right side) - Cardiovascular Rhythm: regular Heart sounds: normal: S1, S2 - Gastrointestinal General gastrointestinal: normal bowel sounds, soft - Integumentary Integumentary: normal turgor - Neurologic Neurologic: CNII-XII intact - Musculoskeletal Musculoskeletal: gait normal, generalized weakness, strength equal bilaterally - Labs CBC & Chem 7: 10/30/20 05:50 10/30/20 05:50 Labs: Abnormal Lab Results - Last 24 Hours (Table) 10/30/20 Range/Units 05:50 WBC 10.8 H (3.8-10.6) k/uL RBC 4.08 L (4.30-5.90) m/uL Hct 38.6 L (39.0-53.0) % Plt Count 147 L (150-450) k/uL Neutrophils # 8.9 H (1.3-7.7) k/uL Lymphocytes # 0.7 L (1.0-4.8) k/uL Microbiology - Last 24 Hours (Table) 10/27/20 19:37 Blood Culture - Preliminary Blood No Growth after 48 hours 10/28/20 11:46 Blood Culture - Preliminary Blood No Growth after 24 hours Assessment and Plan Assessment: Right-sided pneumonia with sepsis, slowly improving as leukocytosis getting better patient not having spiking fever Worsening of x-ray appeared to be related to fluid overload Acute hypoxic respiratory failure due to pneumonia Hypertension hypertensive cardiovascular disease Baseline dementia and Alzheimer's disease Coag-negative bacteremia likely contaminant, repeat blood culture however have been negative Plan: Repeat Blood culture Sputum culture Broad-spectrum antibiotics, vancomycin can be discontinued continue Cefapime Supplemental oxygen, titrated down as tolerated PT OT evaluation Continue home medications DVT prophylaxis Further plan of care as per clinical response of patient Time with Patient: Greater than 30
[2020-10-30] MEDS: CEFEPIME 2 GM in SODIUM CHLORIDE 0.9% 100 ML IVPB SCH ×3 (13:28→22:35)
[2020-10-30] MEDS: SODIUM CHLORIDE 0.9% 1,000 ML IV SCH (13:28)
--- NOTE | 2020-10-30 17:13 | P.PN ---
Progress Note - Text Progress Note Date: 10/30/20 Chief Complaint: Increased shortness of breath History of presenting complaint: This is a 85-year-old patient of Dr. Balbuena. 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 Earlier this month patient was admitted with pneumonia and sent to the [facility] for rehab. EMS was called out at [facility], [place]. Patient stated he was feeling funny. Does not chest pain or body aches. Patient's pulse ox on room air was 80%. Put on high flow oxygen via nonrebreather. Patient did vomit. Patient not able to give a decent history. Denies any fever and chills. Had a low-grade fever of 100 in the ER. Pulse ox was 85%. Admitted with hypoxia, pneumonia. Started IV cefepime, oxygen support. Today: Laying in bed. Still somewhat confused. Decreased oral intake. Review of systems: Was done for constitutional, cardiovascular, GI, pulmonary. relevant finding as above Active Medications Acetaminophen (Acetaminophen Tab 325 Mg Tab) 650 mg PO Q6HR PRN PRN Reason: Mild Pain or Fever > 100.5 Amlodipine Besylate (Amlodipine 5 Mg Tab) 5 mg PO DAILY [facility] Last Admin: 10/30/20 09:00 Dose: 5 mg Documented by: Aspirin (Aspirin 81 Mg) 81 mg PO DAILY [facility] Last Admin: 10/30/20 09:00 Dose: 81 mg Documented by: Atorvastatin Calcium (Atorvastatin 10 Mg Tab) 10 mg PO DAILY [facility] Last Admin: 10/30/20 09:00 Dose: 10 mg Documented by: Cholecalciferol (Cholecalciferol 25 Mcg (1000 Iu) Tablet) 125 mcg PO DAILY [facility] Last Admin: 10/30/20 09:00 Dose: 125 mcg Documented by: Cyanocobalamin (Cyanocobalamin 500 Mcg Tab) 1,000 mcg PO DAILY [facility] Last Admin: 10/30/20 09:00 Dose: 1,000 mcg Documented by: Enoxaparin Sodium (Enoxaparin 30 Mg/0.3 Ml Syringe) 30 mg SQ DAILY [facility] Last Admin: 10/30/20 09:00 Dose: 30 mg Documented by: Cefepime HCl 2 gm/ Sodium (Chloride) 100 mls @ 25 mls/hr IVPB Q8HR [facility] Last Admin: 10/30/20 13:28 Dose: 25 mls/hr Documented by: Sodium Chloride (Saline 0.9%) 1,000 mls @ 50 mls/hr IV .Q20H [facility] Last Admin: 10/30/20 13:28 Dose: 50 mls/hr Documented by: Multivitamins (Multivitamins, Thera 1 Each Tab) 1 each PO DAILY [facility] Last Admin: 10/30/20 09:00 Dose: 1 each Documented by: Naloxone HCl (Naloxone 0.4 Mg/Ml 1 Ml Vial) 0.2 mg IV Q2M PRN PRN Reason: Opioid Reversal Pantoprazole Sodium (Pantoprazole 40 Mg Tablet) 40 mg PO AC-BID [facility] Last Admin: 10/30/20 08:59 Dose: 40 mg Documented by: Tamsulosin HCl (Tamsulosin 0.4 Mg Cap.Er.24h) 0.4 mg PO HS [facility] Last Admin: 10/29/20 20:47 Dose: 0.4 mg Documented by: Zinc Sulfate (Zinc Sulfate 220 Mg Cap) 220 mg PO DAILY [facility] Last Admin: 10/30/20 09:00 Dose: 220 mg Documented by: Past medical history to include: Hypertension, hyperlipidemia, BPH, moderate cognitive impairment from prior stroke, GERD, right-sided weakness from prior stroke, dysarthria, chronic medical debility using a wheelchair Social history: This with family. Patient smoked for about 35 years, cigars. Stop smoking more 24 years ago. One drink at night. On examination: VITAL SIGNS: 97.6, 85, 20, 159/73, 94% on 2 L GENERAL APPEARANCE: Laying in bed, awake, tired EYES: Pupils equal. Conjunctiva normal. NECK: JVD not raised. Mass not palpable. RESPIRATORY: Respiratory effort increased, decreased breath sounds CARDIOVASCULAR: First and second sounds normal. No edema. ABDOMEN: Soft. Liver and spleen not palpable. No tenderness. No mass palpable. PSYCHIATRY: Answering some questions NEUROLOGICAL: . Slight dysarthria. Right-sided weakness 3/5 INVESTIGATIONS, reviewed in the clinical context: October 30: WBC 10.8 hemoglobin 13 potassium 4 creatinine 0.82 pro-calcitonin 2.2 Chest x-ray film personally reviewed by me-some worsening October 29: Potassium 4.1 creatinine 1.03 WBC 17.1 hemoglobin 15.4 platelets 216 potassium 4.3 creatinine 0.94 Influenza type A, type B, RSV, COVID 19: Not detected EKG tracing personally reviewed by me-normal sinus rhythm Chest x-ray film personally reviewed by [id number] infiltrate Assessment and plan: Right sided pneumonia, suspect gram-negative organism, -radiological worsening - IV cefepime 2 g every 8. 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 Aspiration precautions. Changed to ground diet. Also meals to be supervised
[2020-10-30] MEDS: TAMSULOSIN 0.4 MG CAP.ER.24H PO SCH (20:42)
[2020-10-31] MEDS: CEFEPIME 2 GM in SODIUM CHLORIDE 0.9% 100 ML IVPB SCH ×3 (05:41→20:25)
[2020-10-31] MEDS: SODIUM CHLORIDE 0.9% 1,000 ML IV SCH ×2 (05:43→17:13)
[2020-10-31] MEDS: ENOXAPARIN 30 MG/0.3 ML SYRINGE SQ SCH (08:35)
[2020-10-31] MEDS: amLODIPine 5 MG TAB PO SCH (08:35)
[2020-10-31] MEDS: ASPIRIN 81 MG PO SCH (08:35)
[2020-10-31] MEDS: CHOLECALCIFEROL 25 MCG (1000 IU) TABLET PO SCH (08:35)
[2020-10-31] MEDS: ZINC SULFATE 220 MG CAP PO SCH (08:35)
[2020-10-31] MEDS: PANTOPRAZOLE 40 MG TABLET PO SCH ×2 (08:35→17:12)
[2020-10-31] MEDS: MULTIVITAMINS, THERA 1 EACH TAB PO SCH (08:35)
[2020-10-31] MEDS: CYANOCOBALAMIN 500 MCG TAB PO SCH (08:35)
[2020-10-31] MEDS: ATORVASTATIN 10 MG TAB PO SCH (08:35)
--- NOTE | 2020-10-31 10:38 | P.PN ---
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 Gram-positive bacteremia coag-negative likely contaminant 10/31/2020, patient seen eval examined during the rounds labs reviewed medications reviewed respiratory status remains stable on 3 L oxygen, saturation is 90-92%, hemodynamic status stable afebrile, pro-calcitonin is 2.2 suggestive of ongoing pneumonia no significant improvement noted with Lasix, patient remains on broad-spectrum antibiotics with cephepime 10/30/2020, patient seen eval examined during the rounds labs reviewed medications reviewed care plan discussed respiratory status remains stable, and denies any chest pain remains on 3 L oxygen, remains on antibiotics, afebrile saturation is 91% on 2 L, chest x-ray performed today shows worsening of pneumonia and right upper lobe and lower lobe, patient remains on cephapime, white cell count is improving, BUN/creatinine near normalized, suspect worsening of x-ray may very well be due to fluid overload consider some Lasix and stopping IV fluid 10/29/2020, patient seen eval examined during the rounds labs reviewed medications reviewed care plan discussed, respiratory status better now patient sitting upright in the chair, blood culture came back positive for coag-negative staph likely contaminant, seen in 1 out of 2 bottles, CN saturation is 90% liter oxygen, blood pressure stable patient remains afebrile, chemistry done today reviewed BUN/creatinine is 21 and 1.03, influenza A and B are both negative, patient remains on Cefapime and vancomycin, would recommend to repeat the blood culture vancomycin however can be discontinued This is a pleasant 85-year-old male seen eval reexamined on fourth floor patient is not a poor historian most of the data has been obtained from the chart, patient was at [facility] where worsening confusion was noted also patient started complaining of nausea vomiting generalized weakness and fatigue, his saturation on arrival was noted to be in 70%, his past medical history significant for hypertension hypertensive cardiovascular disease dyslipidemia along with 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, with supplemental oxygen saturation continued to improve currently patient is on 3 L oxygen sats are 92%, admitted chest x-ray showed worsening right-sided pneumonia, white cell count is 17,000, patient has been placed on the cefepime vancomycin is the mycin, admitted into the hospital Objective - Vital Signs Vital signs: Vital Signs Temp 97.7 F 10/31/20 06:59 Pulse 70 10/31/20 06:59 Resp 18 10/31/20 06:59 BP 101/52 10/31/20 06:59 Pulse Ox 90 L 10/31/20 06:59 Intake & Output 10/30/20 10/31/20 10/31/20 18:59 06:59 18:59 Other: Voiding Method Incontinent Incontinent # Voids 4 - Exam - Constitutional General appearance: average body habitus, cooperative, disheveled, mild distress - EENT Eyes: EOMI, PERRLA Ears: bilateral: normal - Neck Carotids: bilateral: upstroke normal Thyroid: bilateral: normal size - Respiratory Respiratory: bilateral: diminished, rales (Predominantly at the bases more so on the right side) - Cardiovascular Rhythm: regular Heart sounds: normal: S1, S2 - Gastrointestinal General gastrointestinal: normal bowel sounds, soft - Integumentary Integumentary: normal turgor - Neurologic Neurologic: CNII-XII intact - Musculoskeletal Musculoskeletal: gait normal, generalized weakness, strength equal bilaterally - Labs CBC & Chem 7: 10/30/20 05:50 10/30/20 05:50 Labs: Abnormal Lab Results - Last 24 Hours (Table) 10/30/20 Range/Units 05:50 Procalcitonin 2.20 H (0.02-0.09) ng/mL Microbiology - Last 24 Hours (Table) 10/27/20 19:37 Blood Culture Gram Stain - Final Blood Blood Culture - Final Coagulase Negative Staph 10/27/20 19:37 Blood Culture - Preliminary Blood No Growth after 72 hours 10/28/20 11:46 Blood Culture - Preliminary Blood No Growth after 48 hours 10/29/20 10:37 Blood Culture - Preliminary Blood No Growth after 24 hours Assessment and Plan Assessment: Right-sided pneumonia with sepsis, slowly improving as leukocytosis getting better patient not having spiking fever Worsening of x-ray appeared to be related to combination of fluid overload and pneumonia Acute hypoxic respiratory failure due to pneumonia Hypertension hypertensive cardiovascular disease Baseline dementia and Alzheimer's disease Coag-negative bacteremia likely contaminant, repeat blood culture however have been negative, patient is off of vancomycin as per ID recommendation Plan: Repeat Blood culture results reviewed Sputum culture unable to obtain Broad-spectrum antibiotics, continue Cefapime Supplemental oxygen, titrated down as tolerated PT OT evaluation Continue home medications DVT prophylaxis Further plan of care as per clinical response of patient Time with Patient: Greater than 30
--- NOTE | 2020-10-31 14:23 | P.PN ---
Progress Note - Text Progress Note Date: 10/31/20 Chief Complaint: Increased shortness of breath History of presenting complaint: This is a 85-year-old patient of Dr. Balbuena. 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 Earlier this month patient was admitted with pneumonia and sent to the [facility] for rehab. EMS was called out at [facility]. Patient stated he was feeling funny. Does not chest pain or body aches. Patient's pulse ox on room air was 80%. Put on high flow oxygen via nonrebreather. Patient did vomit. Patient not able to give a decent history. Denies any fever and chills. Had a low-grade fever of 100 in the ER. Pulse ox was 85%. Admitted with hypoxia, pneumonia. Started IV cefepime, oxygen support. Also delirium. Today: Laying in bed. More awake. More communicative. Oral intake better. Breathing better. Review of systems: Was done for constitutional, cardiovascular, GI, pulmonary. relevant finding as above Active Medications Acetaminophen (Acetaminophen Tab 325 Mg Tab) 650 mg PO Q6HR PRN PRN Reason: Mild Pain or Fever > 100.5 Amlodipine Besylate (Amlodipine 5 Mg Tab) 5 mg PO DAILY [facility] Last Admin: 10/31/20 08:35 Dose: 5 mg Documented by: Aspirin (Aspirin 81 Mg) 81 mg PO DAILY [facility] Last Admin: 10/31/20 08:35 Dose: 81 mg Documented by: Atorvastatin Calcium (Atorvastatin 10 Mg Tab) 10 mg PO DAILY [facility] Last Admin: 10/31/20 08:35 Dose: 10 mg Documented by: Cholecalciferol (Cholecalciferol 25 Mcg (1000 Iu) Tablet) 125 mcg PO DAILY [facility] Last Admin: 10/31/20 08:35 Dose: 125 mcg Documented by: Cyanocobalamin (Cyanocobalamin 500 Mcg Tab) 1,000 mcg PO DAILY [facility] Last Admin: 10/31/20 08:35 Dose: 1,000 mcg Documented by: Enoxaparin Sodium (Enoxaparin 30 Mg/0.3 Ml Syringe) 30 mg SQ DAILY [facility] Last Admin: 10/31/20 08:35 Dose: 30 mg Documented by: Sodium Chloride (Saline 0.9%) 1,000 mls @ 50 mls/hr IV .Q20H [facility] Last Admin: 10/31/20 05:43 Dose: 50 mls/hr Documented by: Cefepime HCl 2 gm/ Sodium (Chloride) 100 mls @ 25 mls/hr IVPB Q8H [facility] Last Admin: 10/31/20 12:53 Dose: 25 mls/hr Documented by: Multivitamins (Multivitamins, Thera 1 Each Tab) 1 each PO DAILY [facility] Last Admin: 10/31/20 08:35 Dose: 1 each Documented by: Naloxone HCl (Naloxone 0.4 Mg/Ml 1 Ml Vial) 0.2 mg IV Q2M PRN PRN Reason: Opioid Reversal Pantoprazole Sodium (Pantoprazole 40 Mg Tablet) 40 mg PO AC-BID [facility] Last Admin: 10/31/20 08:35 Dose: 40 mg Documented by: Tamsulosin HCl (Tamsulosin 0.4 Mg Cap.Er.24h) 0.4 mg PO HS [facility] Last Admin: 10/30/20 20:42 Dose: 0.4 mg Documented by: Zinc Sulfate (Zinc Sulfate 220 Mg Cap) 220 mg PO DAILY [facility] Last Admin: 10/31/20 08:35 Dose: 220 mg Documented by: Past medical history to include: Hypertension, hyperlipidemia, BPH, moderate cognitive impairment from prior stroke, GERD, right-sided weakness from prior stroke, dysarthria, chronic medical debility using a wheelchair Social history: This with family. Patient smoked for about 35 years, cigars. Stop smoking more 24 years ago. One drink at night. On examination: VITAL SIGNS: 97.7, 70, 18, 101/52, 90% on 3 L GENERAL APPEARANCE: Laying in bed, more awake EYES: Pupils equal. Conjunctiva normal. NECK: JVD not raised. Mass not palpable. RESPIRATORY: Respiratory effort increased, decreased breath sounds CARDIOVASCULAR: First and second sounds normal. No edema. ABDOMEN: Soft. Liver and spleen not palpable. No tenderness. No mass palpable. PSYCHIATRY: Answering questions better today NEUROLOGICAL: . Slight dysarthria. Right-sided weakness 3/5 INVESTIGATIONS, reviewed in the clinical context: October 30: WBC 10.8 hemoglobin 13 potassium 4 creatinine 0.82 pro-calcitonin 2.2 Chest x-ray film personally reviewed by me-some worsening October 29: Potassium 4.1 creatinine 1.03 WBC 17.1 hemoglobin 15.4 platelets 216 potassium 4.3 creatinine 0.94 Influenza type A, type B, RSV, COVID 19: Not detected EKG tracing personally reviewed by me-normal sinus rhythm Chest x-ray film personally reviewed by [id number] infiltrate Assessment and plan: Right sided pneumonia, suspect gram-negative organism, - - IV cefepime 2 g every 8. 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 Aspiration precautions. Discussed with the nurse.
[2020-10-31] MEDS: TAMSULOSIN 0.4 MG CAP.ER.24H PO SCH (20:25)
[2020-11-01] MEDS: CEFEPIME 2 GM in SODIUM CHLORIDE 0.9% 100 ML IVPB SCH ×3 (04:45→20:35)
--- NOTE | 2020-11-01 07:37 | P.PN ---
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 Gram-positive bacteremia coag-negative likely contaminant 11/01/2020, patient seen eval examined during the rounds labs reviewed medications reviewed care plan discussed with the staff, patient remains on 2 L oxygen, oxygen saturation is 92%, blood pressure and heart rate is stable patient is afebrile, peak blood cultures no growth, coag-negative staph in the blood likely contaminant, would recommend to continue antibiotics and supportive care titrate oxygen down as tolerated 10/31/2020, patient seen eval examined during the rounds labs reviewed medications reviewed respiratory status remains stable on 3 L oxygen, saturation is 90-92%, hemodynamic status stable afebrile, pro-calcitonin is 2.2 suggestive of ongoing pneumonia no significant improvement noted with Lasix, patient remains on broad-spectrum antibiotics with cephepime 10/30/2020, patient seen eval examined during the rounds labs reviewed medications reviewed care plan discussed respiratory status remains stable, and denies any chest pain remains on 3 L oxygen, remains on antibiotics, afebrile saturation is 91% on 2 L, chest x-ray performed today shows worsening of pneumonia and right upper lobe and lower lobe, patient remains on cephapime, white cell count is improving, BUN/creatinine near normalized, suspect worsening of x-ray may very well be due to fluid overload consider some Lasix and stopping IV fluid 10/29/2020, patient seen eval examined during the rounds labs reviewed medications reviewed care plan discussed, respiratory status better now patient sitting upright in the chair, blood culture came back positive for coag-negative staph likely contaminant, seen in 1 out of 2 bottles, CN saturation is 90% liter oxygen, blood pressure stable patient remains afebrile, chemistry done today reviewed BUN/creatinine is 21 and 1.03, influenza A and B are both negative, patient remains on Cefapime and vancomycin, would recommend to repeat the blood culture vancomycin however can be discontinued This is a pleasant 85-year-old male seen eval reexamined on fourth floor patient is not a poor historian most of the data has been obtained from the chart, patient was at [facility] where worsening confusion was noted also patient started complaining of nausea vomiting generalized weakness and fatigue, his saturation on arrival was noted to be in 70%, his past medical history significant for hype rtension hypertensive cardiovascular disease dyslipidemia along with 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, with supplemental oxygen saturation continued to improve currently patient is on 3 L oxygen sats are 92%, admitted chest x-ray showed worsening right-sided pneumonia, white cell count is 17,000, patient has been placed on the cefepime vancomycin is the mycin, admitted into the hospital Objective - Vital Signs Vital signs: Vital Signs Temp 98.3 F 11/01/20 02:24 Pulse 61 11/01/20 02:24 Resp 18 11/01/20 02:24 BP 136/75 11/01/20 02:24 Pulse Ox 92 L 11/01/20 02:24 Intake & Output 10/31/20 11/01/20 11/01/20 18:59 06:59 18:59 Intake Total 1180 Balance 1180 Intake: Intake, IV Titration 800 Amount Cefepime 2 gm In Sodium 200 Chloride 0.9% 100 ml @ 25 mls/hr IVPB Q8H [facility] Rx#: [id number] Sodium Chloride 0.9% 1, 600 000 ml @ 50 mls/hr IV . Q20H [facility] Rx#:[id number] Oral 380 Other: Voiding Method Incontinent Incontinent # Voids 2 3 # Bowel Movements 0 - Exam - Constitutional General appearance: average body habitus, cooperative, disheveled, mild distress - EENT Eyes: EOMI, PERRLA Ears: bilateral: normal - Neck Carotids: bilateral: upstroke normal Thyroid: bilateral: normal size - Respiratory Respiratory: bilateral: diminished, rales (Predominantly at the bases more so on the right side) - Cardiovascular Rhythm: regular Heart sounds: normal: S1, S2 - Gastrointestinal General gastrointestinal: normal bowel sounds, soft - Integumentary Integumentary: normal turgor - Neurologic Neurologic: CNII-XII intact - Musculoskeletal Musculoskeletal: gait normal, generalized weakness, strength equal bilaterally - Labs CBC & Chem 7: 10/30/20 05:50 10/30/20 05:50 Labs: Microbiology - Last 24 Hours (Table) 10/27/20 19:37 Blood Culture - Preliminary Blood No Growth after 96 hours 10/28/20 11:46 Blood Culture - Preliminary Blood No Growth after 72 hours 10/29/20 10:37 Blood Culture - Preliminary Blood No Growth after 48 hours 10/27/20 19:37 Blood Culture Gram Stain - Final Blood Blood Culture - Final Coagulase Negative Staph Assessment and Plan Assessment: Right-sided pneumonia with sepsis, slowly improving as leukocytosis getting better patient not having spiking fever Worsening of x-ray appeared to be related to combination of fluid overload and pneumonia Acute hypoxic respiratory failure due to pneumonia Hypertension 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
[2020-11-01] MEDS: ZINC SULFATE 220 MG CAP PO SCH (08:16)
[2020-11-01] MEDS: amLODIPine 5 MG TAB PO SCH (08:16)
[2020-11-01] MEDS: CYANOCOBALAMIN 500 MCG TAB PO SCH (08:16)
[2020-11-01] MEDS: ASPIRIN 81 MG PO SCH (08:16)
[2020-11-01] MEDS: PANTOPRAZOLE 40 MG TABLET PO SCH ×2 (08:16→17:05)
[2020-11-01] MEDS: ATORVASTATIN 10 MG TAB PO SCH (08:16)
[2020-11-01] MEDS: CHOLECALCIFEROL 25 MCG (1000 IU) TABLET PO SCH (08:16)
[2020-11-01] MEDS: ENOXAPARIN 30 MG/0.3 ML SYRINGE SQ SCH (08:17)
[2020-11-01] MEDS: MULTIVITAMINS, THERA 1 EACH TAB PO SCH (08:17)
[2020-11-01] MEDS: SODIUM CHLORIDE 0.9% 1,000 ML IV SCH (15:42)
--- NOTE | 2020-11-01 17:15 | P.PN ---
Progress Note - Text Progress Note Date: 11/01/20 Chief Complaint: Increased shortness of breath History of presenting complaint: This is a 85-year-old patient of Dr. Balbuena. 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 Earlier this month patient was admitted with pneumonia and sent to the [facility] for rehab. EMS was called out at [facility]. Patient stated he was feeling funny. Does not chest pain or body aches. Patient's pulse ox on room air was 80%. Put on high flow oxygen via nonrebreather. Patient did vomit. Patient not able to give a decent history. Denies any fever and chills. Had a low-grade fever of 100 in the ER. Pulse ox was 85%. Admitted with hypoxia, pneumonia. Started IV cefepime, oxygen support. Also delirium. Patient gradually improved. Delirium improved. Today: Oral intake fluctuating. Answering questions. Reclining in chair. Review of systems: Was done for constitutional, cardiovascular, GI, pulmonary. relevant finding as above Active Medications Acetaminophen (Acetaminophen Tab 325 Mg Tab) 650 mg PO Q6HR PRN PRN Reason: Mild Pain or Fever > 100.5 Amlodipine Besylate (Amlodipine 5 Mg Tab) 5 mg PO DAILY [facility] Last Admin: 11/01/20 08:16 Dose: 5 mg Documented by: Aspirin (Aspirin 81 Mg) 81 mg PO DAILY [facility] Last Admin: 11/01/20 08:16 Dose: 81 mg Documented by: Atorvastatin Calcium (Atorvastatin 10 Mg Tab) 10 mg PO DAILY [facility] Last Admin: 11/01/20 08:16 Dose: 10 mg Documented by: Cholecalciferol (Cholecalciferol 25 Mcg (1000 Iu) Tablet) 125 mcg PO DAILY [facility] Last Admin: 11/01/20 08:16 Dose: 125 mcg Documented by: Cyanocobalamin (Cyanocobalamin 500 Mcg Tab) 1,000 mcg PO DAILY [facility] Last Admin: 11/01/20 08:16 Dose: 1,000 mcg Documented by: Enoxaparin Sodium (Enoxaparin 30 Mg/0.3 Ml Syringe) 30 mg SQ DAILY [facility] Last Admin: 11/01/20 08:17 Dose: 30 mg Documented by: Sodium Chloride (Saline 0.9%) 1,000 mls @ 50 mls/hr IV .Q20H [facility] Last Admin: 11/01/20 15:42 Dose: Not Given Documented by: Cefepime HCl 2 gm/ Sodium (Chloride) 100 mls @ 25 mls/hr IVPB Q8H [facility] Last Admin: 11/01/20 11:19 Dose: 25 mls/hr Documented by: Multivitamins (Multivitamins, Thera 1 Each Tab) 1 each PO DAILY [facility] Last Admin: 11/01/20 08:17 Dose: 1 each Documented by: Naloxone HCl (Naloxone 0.4 Mg/Ml 1 Ml Vial) 0.2 mg IV Q2M PRN PRN Reason: Opioid Reversal Pantoprazole Sodium (Pantoprazole 40 Mg Tablet) 40 mg PO AC-BID [facility] Last Admin: 11/01/20 17:05 Dose: 40 mg Documented by: Tamsulosin HCl (Tamsulosin 0.4 Mg Cap.Er.24h) 0.4 mg PO HS [facility] Last Admin: 10/31/20 20:25 Dose: 0.4 mg Documented by: Zinc Sulfate (Zinc Sulfate 220 Mg Cap) 220 mg PO DAILY [facility] Last Admin: 11/01/20 08:16 Dose: 220 mg Documented by: Past medical history to include: Hypertension, hyperlipidemia, BPH, moderate cognitive impairment from prior stroke, GERD, right-sided weakness from prior stroke, dysarthria, chronic medical debility using a wheelchair Social history: This with family. Patient smoked for about 35 years, cigars. Stop smoking more 24 years ago. One drink at night. On examination: VITAL SIGNS: 98.1, 65, 18, 140/73, 93% on 3 L GENERAL APPEARANCE: Reclining in chair, awake EYES: Pupils equal. Conjunctiva normal. NECK: JVD not raised. Mass not palpable. RESPIRATORY: Respiratory effort increased, decreased breath sounds CARDIOVASCULAR: First and second sounds normal. No edema. ABDOMEN: Soft. Liver and spleen not palpable. No tenderness. No mass palpable. PSYCHIATRY: Answering simple questions NEUROLOGICAL: . Slight dysarthria. Right-sided weakness 3/5 INVESTIGATIONS, reviewed in the clinical context: October 30: WBC 10.8 hemoglobin 13 potassium 4 creatinine 0.82 pro-calcitonin 2.2 Chest x-ray film personally reviewed by me-some worsening October 29: Potassium 4.1 creatinine 1.03 WBC 17.1 hemoglobin 15.4 platelets 216 potassium 4.3 creatinine 0.94 Influenza type A, type B, RSV, COVID 19: Not detected EKG tracing personally reviewed by me-normal sinus rhythm Chest x-ray film personally reviewed by [id number] infiltrate Assessment and plan: Right sided pneumonia, suspect gram-negative organism, - - IV cefepime 2 g every 8. 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 Plan is for patient to the ECF. Repeat labs
[2020-11-01] MEDS: TAMSULOSIN 0.4 MG CAP.ER.24H PO SCH (20:35)
[2020-11-02] MEDS: CEFEPIME 2 GM in SODIUM CHLORIDE 0.9% 100 ML IVPB SCH ×2 (04:42→12:04)
[2020-11-02 06:23] LABS: Basophils # (A) 0.1 k/uL (0-0.2); Basophils % (A) 1 %; Eosinophils # (A) 0.9 k/uL (0-0.7); Eosinophils % (A) 9 %; HCT 39.6 % (39.0-53.0); HGB 12.9 gm/dL (13.0-17.5); Lymphocytes # (A) 1.1 k/uL (1.0-4.8); Lymphocytes % (A) 10 %; MCH 31.3 pg (25.0-35.0); MCHC 32.6 g/dL (31.0-37.0); MCV 96.1 fL (80.0-100.0); Mean Platelet Volume 7.8; Monocytes # (A) 0.7 k/uL (0-1.0); Monocytes % (A) 7 %; Neutrophils # (A) 7.1 k/uL (1.3-7.7); Neutrophils % (A) 71 %; Platelet Count 209 k/uL (150-450); RBC 4.12 m/uL (4.30-5.90); RDW 12.5 % (11.5-15.5)
--- NOTE | 2020-11-02 08:32 | P.PN ---
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 Gram-positive bacteremia coag-negative likely contaminant 11/02/2020, overall no significant change, patient continued to require supplemental oxygen, cough congestion shortness was however slightly improved and better, afebrile, hemodynamically stable oxygenation remains marginal on 3 L 92%, oxygen is being tapered down currently on 2 L now, white cell count coming down, hemoglobin stable, remains on broad-spectrum antibiotics, overall remains awake and alert pleasantly confused 11/01/2020, patient seen eval examined during the rounds labs reviewed medications reviewed care plan discussed with the staff, patient remains on 2 L oxygen, oxygen saturation is 92%, blood pressure and heart rate is stable patient is afebrile, peak blood cultures no growth, coag-negative staph in the blood likely contaminant, would recommend to continue antibiotics and supportive care titrate oxygen down as tolerated 10/31/2020, patient seen eval examined during the rounds labs reviewed medications reviewed respiratory status remains stable on 3 L oxygen, saturation is 90-92%, hemodynamic status stable afebrile, pro-calcitonin is 2.2 suggestive of ongoing pneumonia no significant improvement noted with Lasix, patient remains on broad-spectrum antibiotics with cephepime 10/30/2020, patient seen eval examined during the rounds labs reviewed medications reviewed care plan discussed respiratory status remains stable, and denies any chest pain remains on 3 L oxygen, remains on antibiotics, afebrile saturation is 91% on 2 L, chest x-ray performed today shows worsening of pneumonia and right upper lobe and lower lobe, patient remains on cephapime, white cell count is improving, BUN/creatinine near normalized, suspect worsening of x-ray may very well be due to fluid overload consider some Lasix and stopping IV fluid 10/29/2020, patient seen eval examined during the rounds labs reviewed medications reviewed care plan discussed, respiratory status better now patient sitting upright in the chair, blood culture came back positive for coag-negative staph likely contaminant, seen in 1 out of 2 bottles, CN saturation is 90% liter oxygen, blood pressure stable patient remains afebrile, chemistry done today reviewed BUN/creatinine is 21 and 1.03, influenza A and B are both negative, patient remains on Cefapime and vancomycin, would recommend to repeat the blood culture vancomycin however can be discontinued This is a pleasant 85-year-old male seen eval reexamined on fourth floor patient is not a poor historian most of the data has been obtained from the chart, patient was at [facility] where worsening confusion was noted also patient started complaining of nausea vomiting generalized weakness and fatigue, his saturation on arrival was noted to be in 70%, his past medical history significant for hypertension hypertensive cardiovascular disease dyslipidemia along with adv anced dementia enzyme was disease, with supplemental oxygen saturation continued to improve currently patient is on 3 L oxygen sats are 92%, admitted chest x-ray showed worsening right-sided pneumonia, white cell count is 17,000, patient has been placed on the cefepime vancomycin is the mycin, admitted into the hospital Objective - Vital Signs Vital signs: Vital Signs Temp 97.3 F L 11/02/20 03:38 Pulse 57 L 11/02/20 03:38 Resp 19 11/02/20 03:38 BP 158/70 11/02/20 03:38 Pulse Ox 93 L 11/02/20 03:38 Intake & Output 11/01/20 11/02/20 11/02/20 18:59 06:59 18:59 Output Total 200 Balance -200 Output: Urine 200 Other: Voiding Method Incontinent Incontinent # Voids 1 - Exam - Constitutional General appearance: average body habitus, cooperative, disheveled, mild distress - EENT Eyes: EOMI, PERRLA Ears: bilateral: normal - Neck Carotids: bilateral: upstroke normal Thyroid: bilateral: normal size - Respiratory Respiratory: bilateral: diminished, rales (Predominantly at the bases more so on the right side) - Cardiovascular Rhythm: regular Heart sounds: normal: S1, S2 - Gastrointestinal General gastrointestinal: normal bowel sounds, soft - Integumentary Integumentary: normal turgor - Neurologic Neurologic: CNII-XII intact - Musculoskeletal Musculoskeletal: gait normal, generalized weakness, strength equal bilaterally - Labs CBC & Chem 7: 11/02/20 05:40 10/30/20 05:50 Labs: Abnormal Lab Results - Last 24 Hours (Table) 11/02/20 Range/Units 05:40 RBC 4.12 L (4.30-5.90) m/uL Hgb 12.9 L (13.0-17.5) gm/dL Eosinophils # 0.9 H (0-0.7) k/uL Microbiology - Last 24 Hours (Table) 10/27/20 19:37 Blood Culture - Preliminary Blood No Growth after 120 hours 10/28/20 11:46 Blood Culture - Preliminary Blood No Growth after 96 hours 10/29/20 10:37 Blood Culture - Preliminary Blood No Growth after 72 hours Assessment and Plan Assessment: Right-sided pneumonia with sepsis, slowly improving as leukocytosis getting bett er patient not having spiking fever Worsening of x-ray appeared to be related to combination of fluid overload and pneumonia we'll repeat a follow-up chest x-ray Acute hypoxic respiratory failure due to pneumonia Hypertension hypertensive cardiovascular disease Baseline dementia and Alzheimer's disease Coag-negative bacteremia likely contaminant, repeat blood culture however have been negative, patient is off of vancomycin as per ID recommendation Plan: Follow-up chest x-ray tomorrow Repeat Blood culture results reviewed Sputum culture unable to obtain Broad-spectrum antibiotics, continue Cefapime, however can be switched to oral at the time of discharge Supplemental oxygen, titrated down as tolerated PT OT evaluation Continue home medications DVT prophylaxis Further plan of care as per clinical response of patient
[2020-11-02] MEDS: ENOXAPARIN 30 MG/0.3 ML SYRINGE SQ SCH (09:42)
[2020-11-02] MEDS: CYANOCOBALAMIN 500 MCG TAB PO SCH (09:42)
[2020-11-02] MEDS: ATORVASTATIN 10 MG TAB PO SCH (09:42)
[2020-11-02] MEDS: ASPIRIN 81 MG PO SCH (09:43)
[2020-11-02] MEDS: CHOLECALCIFEROL 25 MCG (1000 IU) TABLET PO SCH (09:43)
[2020-11-02] MEDS: MULTIVITAMINS, THERA 1 EACH TAB PO SCH (09:43)
[2020-11-02] MEDS: ZINC SULFATE 220 MG CAP PO SCH (09:43)
[2020-11-02] MEDS: PANTOPRAZOLE 40 MG TABLET PO SCH (09:43)
[2020-11-02] MEDS: amLODIPine 5 MG TAB PO SCH (09:43)
[2020-11-02] MEDS: SODIUM CHLORIDE 0.9% 1,000 ML IV SCH (09:44)
--- NOTE | 2020-11-02 12:40 | P.DS ---
Providers Date of admission: 10/27/20 20:19 Expected date of discharge: 11/02/20 Attending physician: Sidney Fortune Consults: 10/27/20 20:19 Consult Physician Routine Consulting Provider: Tim Cade Consult Reason/Comments: PNA Do you want consulting provider notified?: Already Contacted Primary care physician: [facility] Course: Chief Complaint: Increased shortness of breath History of presenting complaint: This is a 85-year-old patient of Dr. Balbuena. 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 Earlier this month patient was admitted with pneumonia and sent to the [facility] for rehab. EMS was called out at home. Patient stated he was feeling funny. no chest pain or body aches. pulse ox on room air was 80%. Put on high flow oxygen via nonrebreather. Patient did vomit. Patient not able to give a decent history. Denies any fever and chills. Had a low-grade fever of 100 in the ER. Admitted with hypoxia, pneumonia. Started IV cefepime, oxygen support. Also delirium. Patient gradually improved. Delirium improved. Today: Oral intake fair. Awake. Communicating. On 2 L of nasal cannula. We changed to oral antibiotic. Consultation: Dr. Tejinder Cade from pulmonary Past medical history to include: Hypertension, hyperlipidemia, BPH, moderate cognitive impairment from prior stroke, GERD, right-sided weakness from prior stroke, dysarthria, chronic medical debility using a wheelchair Social history: This with family. Patient smoked for about 35 years, cigars. Stop smoking more 24 years ago. One drink at night. On examination: VITAL SIGNS: 98.4, 64, 16, 1 50 x 70, 95% on 2 L GENERAL APPEARANCE: Reclining in chair, awake EYES: Pupils equal. Conjunctiva normal. NECK: JVD not raised. Mass not palpable. RESPIRATORY: Respiratory effort increased, decreased breath sounds CARDIOVASCULAR: First and second sounds normal. No edema. ABDOMEN: Soft. Liver and spleen not palpable. No tenderness. No mass palpable. PSYCHIATRY: Answering simple questions NEUROLOGICAL: . dysarthria. Right-sided weakness 3/5 INVESTIGATIONS, reviewed in the clinical context: November 02: WBC 10 hemoglobin 12.9 platelets 209 October 30: WBC 10.8 hemoglobin 13 potassium 4 creatinine 0.82 pro-calcitonin 2.2 Chest x-ray film personally reviewed by me-some worsening October 29: Potassium 4.1 creatinine 1.03 WBC 17.1 hemoglobin 15.4 platelets 216 potassium 4.3 creatinine 0.94 Influenza type A, type B, RSV, COVID 19: Not detected EKG tracing personally reviewed by me-normal sinus rhythm Chest x-ray film personally reviewed by [id number] infiltrate Assessment and plan: Right sided pneumonia, suspect gram-negative organism, -improved - IV cefepime 2 g every 8. 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 and some dysarthria -Fall precautions Chronic medical debility, and a baseline patient uses a wheelchair - PTOT -Acute delirium from pneumonia- improved Disposition: [facility]CF/[facility] Plan - Discharge Summary Discharge Rx Participant: Yes New Discharge Prescriptions: New Cefuroxime Axetil [Ceftin] 500 mg PO BID 1 Days #10 tab Acetaminophen Tab [Tylenol] 650 mg PO Q6HR PRN tab PRN Reason: Mild Pain Or Fever > 100.5 Continue Multivitamins, Thera [Multivitamin (formulary)] 1 tab PO DAILY Aspirin [Adult Low Dose Aspirin EC] 81 mg PO DAILY amLODIPine [Norvasc] 5 mg PO DAILY Tamsulosin [Flomax] 0.4 mg PO HS Atorvastatin [Lipitor] 10 mg PO DAILY Omeprazole 40 mg PO BID Cyanocobalamin (Vitamin B-12) [Vitamin B-12] 1,000 mcg PO DAILY Zinc Gluconate [Zinc] 50 mg PO DAILY Cholecalciferol (Vitamin D3) [Vitamin D3 (5000 Iu)] 125 mcg PO DAILY Discharge Medication List Multivitamins, Thera [Multivitamin (formulary)] 1 tab PO DAILY 10/16/15 [History] Aspirin [Adult Low Dose Aspirin EC] 81 mg PO DAILY 11/10/16 [History] Atorvastatin [Lipitor] 10 mg PO DAILY 07/09/18 [History] Cyanocobalamin (Vitamin B-12) [Vitamin B-12] 1,000 mcg PO DAILY 07/09/18 [History] Omeprazole 40 mg PO BID 07/09/18 [History] Tamsulosin [Flomax] 0.4 mg PO HS 07/09/18 [History] amLODIPine [Norvasc] 5 mg PO DAILY 07/09/18 [History] Cholecalciferol (Vitamin D3) [Vitamin D3 (5000 Iu)] 125 mcg PO DAILY 10/03/20 [History] Zinc Gluconate [Zinc] 50 mg PO DAILY 10/03/20 [History] Acetaminophen Tab [Tylenol] 650 mg PO Q6HR PRN tab 11/02/20 [Rx] Cefuroxime Axetil [Ceftin] 500 mg PO BID 1 Days #10 tab 11/02/20 [Rx] Follow up Appointment(s)/Referral(s): Jeffrey Balbuena DO [Primary Care Provider] - 1-2 days
[2020-11-02 15:10] VITALS: BP 144/68; PULSE 66; RESP 18; TEMP 97.8
--- NOTE | 2020-11-22 15:28 | CDI ---
Documentation Clarification Form Date: 11/22/20 From: Emmie Aleman Phone: Admit Date: 10/27/2020 08:19:00 PM Patient Name: Fernando Harrison Visit Number: [id number] Discharge Date: 11/02/2020 03:06:00 PM ATTENTION: The Clinical Documentation Specialists (CDI) and [facility] Coding Staff appreciate your assistance in clarifying documentation. Please respond to the clarification below the line at the bottom and electronically sign. The CDI & [facility] Coding staff will review the response and follow-up if needed. Please note: Queries are made part of the Legal Health Record. If you have any questions, please contact the author of this message via ITS. Dr. Sidney Fortune, Conflicting documentation has been found in the medical record. As attending physician, please provide clarification Per Dr Cade's consult "Right-sided pneumonia with sepsis." Per your DS "Right sided pneumonia, suspect gram-negative organism, -improved." No mention of sepsis. History/Risk Factors: Hx CVA with hemiparesis and dysarthria, Alzheimer's dementia Clinical Indicators: T-100, P-111, R-20, BP-132/68 O2 sat-85, lactic acid-1.2, WBC-17.1, Neutrophil-15.8 Treatment: IV Cefepime, IV Azithromycin, IV Vanco, IV fluids Please clarify which diagnosis is most appropriate: [ ] Sepsis due to gram-neg pneumonia [ ] Sepsis ruled out [ ] Other (please specify) [ ] Unable to determine Sepsis due to gram-negative pneumonia MTDD
== END 2020-11-02 15:06 | DRG 871 ==
LOC: EC 18:34 → 4SSUR 20:19
PROVIDERS: ADMIT Hospitalist; ATTEND Hospitalist
DX: A41.59 Other Gram-negative sepsis (principal); J15.6 Pneumonia due to other Gram-negative bacteria; J96.01 Acute respiratory failure with hypoxia; I69.351 Hemiplegia and hemiparesis following cerebral infarction affecting right dominant side; G30.9 Alzheimer's disease, unspecified; F02.80 Dementia in other diseases classified elsewhere, unspecified severity, without behavioral disturbance, psychotic disturbance, mood disturbance, and anxiety; Z20.822 Contact with and (suspected) exposure to COVID-19; I11.9 Hypertensive heart disease without heart failure; N40.1 Benign prostatic hyperplasia with lower urinary tract symptoms; N39.498 Other specified urinary incontinence; I69.322 Dysarthria following cerebral infarction; L30.9 Dermatitis, unspecified; K21.9 Gastro-esophageal reflux disease without esophagitis; E78.5 Hyperlipidemia, unspecified; K44.9 Diaphragmatic hernia without obstruction or gangrene; K22.70 Barrett's esophagus without dysplasia; F41.9 Anxiety disorder, unspecified; Z79.82 Long term (current) use of aspirin; Z79.899 Other long term (current) drug therapy; Z87.01 Personal history of pneumonia (recurrent); Z99.3 Dependence on wheelchair; Z90.89 Acquired absence of other organs; Z86.79 Personal history of other diseases of the circulatory system; Z87.891 Personal history of nicotine dependence; Z98.890 Other specified postprocedural states; Z88.0 Allergy status to penicillin; Z82.3 Family history of stroke; Z81.8 Family history of other mental and behavioral disorders
CPT/HCPCS: 36415; 71045; 71046; 80048; 80053; 80202; 82565; 83605; 83880; 84145; 85025; 85610; 85730; 87040; 87635; 87636; 93005; 96365; 99285

== ENCOUNTER 2020-11-19 10:50 | Inpatient (IN) | payer MEDICARE, OTHER ==
[2020-11-19] MEDS ORDERED: ONDANSETRON 4 MG/2 ML VIAL IVP STA (11:25)
[2020-11-19] MEDS ORDERED: PANTOPRAZOLE 40 MG/10 ML VIAL IVP STA (11:25)
[2020-11-19] MEDS ORDERED: SODIUM CHLORIDE 0.9% 500 ML 500 ML IV ONE (11:26)
[2020-11-19] MEDS: SODIUM CHLORIDE 0.9% 1,000 ML IV SCH (12:10)
[2020-11-19 13:31] LABS: Lactic Acid, Venous 1.4 mmol/L (0.7-2.0)
[2020-11-19 13:34] LABS: Prothrombin Time 11.1 sec (9.0-12.0)
--- NOTE | 2020-11-19 13:35 | ED ---
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 pt states that he has been vomiting dark black today. he states there was a pool of vomit that was black. pt states he has mild abdominal pain. denies chest pain, dyspnea. He is unsure if he had a fall. Sofia headaches, current nausea, denies bright red blood per rectum/mouth. Patient denies known anticoagulation use or liver disease. pt has no additional complaints. upon arrival he appears well nontoxic in no acute distress. - Related Data Home Medications Medication Instructions Recorded Confirmed Multivitamins, Thera [Multivitamin 1 tab PO DAILY 10/16/15 11/19/20 (formulary)] Aspirin [Adult Low Dose Aspirin EC] 81 mg PO DAILY 11/10/16 11/19/20 Atorvastatin [Lipitor] 10 mg PO DAILY 07/09/18 11/19/20 Cyanocobalamin (Vitamin B-12) 1,000 mcg PO DAILY 07/09/18 11/19/20 [Vitamin B-12] Omeprazole 40 mg PO BID 07/09/18 11/19/20 Tamsulosin [Flomax] 0.4 mg PO HS 07/09/18 11/19/20 amLODIPine [Norvasc] 5 mg PO DAILY 07/09/18 11/19/20 Cholecalciferol (Vitamin D3) 125 mcg PO DAILY 10/03/20 11/19/20 [Vitamin D3 (5000 Iu)] Zinc Gluconate [Zinc] 50 mg PO DAILY 10/03/20 11/19/20 Acetaminophen Tab [Tylenol] 650 mg PO Q6H PRN 11/19/20 11/19/20 Atropine Ophth Soln 1% 5Ml [Isopto 1 drop SUBLINGUAL Q4H PRN 11/19/20 11/19/20 Atropine 1% 5Ml] Allergies Allergy/AdvReac Type Severity Reaction Status Date / Time Penicillins Allergy Unknown Verified 10/27/20 20:12 Childhood Review of Systems ROS Statement: Those systems with pertinent positive or pertinent negative responses have been documented in the HPI. ROS Other: All systems not noted in ROS Statement are negative. 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 - Past Family History Father History Unknown: Yes Mother Family Medical History: CVA/TIA, Dementia Additional Family Medical History / Comment(s): at age 94 or 95 General Exam - General Exam Comments Initial Comments: General: The patient is awake and alert, in no distress Eye: +3 mm pupils are equal, round and reactive to light, extra-ocular movements are intact. No nystagmus. There is normal conjunctiva bilaterally. No signs of icterus. Ears, nose, mouth and throat: There are moist mucous membranes and no oral lesions. Black/dark substance dry on corners mouth/tongue Neck: The neck is supple, there is no tenderness or JVD. Cardiovascular: There is a regular rate and rhythm. No murmur, rub or gallop is appreciated. Respiratory: Lungs are clear to auscultation, respirations are non-labored, breath sounds are equal. No wheezes, stridor, rales, or rhonchi. Gastrointestinal: Soft, non-distended, mild/moderate epigastric tenderness to palpation fo the abdomen, abdomen is without masses or organomegaly noted. There is no rebound or guarding present. Musculoskeletal: Normal ROM, no tenderness. Strength 5/5. Sensation intact. Radial and DP pulses equal bilaterally 2+. Neurological: A&O x 3. CN II-XII intact grossly, There are no obvious motor or sensory deficits. Coordination appears grossly intact. Speech is normal. Skin: Skin is warm and dry and no rashes or lesions are noted. Psychiatric: Cooperative, appropriate mood & affect, normal judgment. Course Vital Signs 11/19/20 10:53 Temperature 98.5 F Pulse Rate 73 Respiratory 18 Rate Blood Pressure 176/73 O2 Sat by Pulse 93 L Oximetry Medical Decision Making - Medical Decision Making 85yo male presenting for possible GI bleed. pt vomited what called "coffee ground like vomit" she states he has had a GI bleed in the past thus called 911. denied bright red blood. pt hgb, VS stable on arrival. initially patient stated he was a daily drinker but states he has dementia and this is not true. pt will be admitted for GI consultation for suspected GI bleed. Dr. Fortune a ccepted admission after discussing case in the ER.Dr Figueroa is agreeable to care plan as well as admission. - Lab Data Result diagrams: 11/21/20 07:20 11/21/20 07:20 Lab Results 11/19/20 11/19/20 11/19/20 Range/Units 12:25 12:25 12:25 WBC 13.3 H (3.8-10.6) k/uL RBC 4.70 (4.30-5.90) m/uL Hgb 14.7 (13.0-17.5) gm/dL Hct 44.9 (39.0-53.0) % MCV 95.5 (80.0-100.0) fL MCH 31.4 (25.0-35.0) pg MCHC 32.9 (31.0-37.0) g/dL RDW 12.9 (11.5-15.5) % Plt Count 215 (150-450) k/uL MPV 8.9 Neutrophils % 88 % Lymphocytes % 6 % Monocytes % 4 % Eosinophils % 1 % Basophils % 0 % Neutrophils # 11.7 H (1.3-7.7) k/uL Lymphocytes # 0.8 L (1.0-4.8) k/uL Monocytes # 0.5 (0-1.0) k/uL Eosinophils # 0.1 (0-0.7) k/uL Basophils # 0.1 (0-0.2) k/uL PT 11.1 (9.0-12.0) sec INR 1.0 (<1.2) APTT 21.5 L (22.0-30.0) sec Sodium 144 (137-145) mmol/L Potassium 5.2 H (3.5-5.1) mmol/L Chloride 106 (98-107) mmol/L Carbon Dioxide 24 (22-30) mmol/L Anion Gap 14 mmol/L BUN 23 H (9-20) mg/dL Creatinine 0.98 (0.66-1.25) mg/dL Est GFR (CKD-EPI)AfAm 83 (>60 ml/min/1.73 sqM) Est GFR (CKD-EPI)NonAf 72 (>60 ml/min/1.73 sqM) Glucose 103 H (74-99) mg/dL Plasma Lactic Acid Chago (0.7-2.0) mmol/L Calcium 9.4 (8.4-10.2) mg/dL Total Bilirubin 1.3 (0.2-1.3) mg/dL AST 28 (17-59) U/L ALT 17 (4-49) U/L Alkaline Phosphatase 127 H (38-126) U/L Ammonia (<30) umol/L Troponin I (0.000-0.034) ng/mL Total Protein 7.4 (6.3-8.2) g/dL Albumin 4.3 (3.5-5.0) g/dL Lipase 15 L (23-300) U/L Coronavirus (PCR) (Not Detectd) Blood Type Blood Type Recheck Bld Type Recheck Status Antibody Screen Spec Expiration Date 11/19/20 11/19/20 11/19/20 Range/Units 12:25 12:25 12:25 WBC (3.8-10.6) k/uL RBC (4.30-5.90) m/uL Hgb (13.0-17.5) gm/dL Hct (39.0-53.0) % MCV (80.0-100.0) fL MCH (25.0-35.0) pg MCHC (31.0-37.0) g/dL RDW (11.5-15.5) % Plt Count (150-450) k/uL MPV Neutrophils % % Lymphocytes % % Monocytes % % Eosinophils % % Basophils % % Neutrophils # (1.3-7.7) k/uL Lymphocytes # (1.0-4.8) k/uL Monocytes # (0-1.0) k/uL Eosinophils # (0-0.7) k/uL Basophils # (0-0.2) k/uL PT (9.0-12.0) sec INR (<1.2) APTT (22.0-30.0) sec Sodium (137-145) mmol/L Potassium (3.5-5.1) mmol/L Chloride (98-107) mmol/L Carbon Dioxide (22-30) mmol/L Anion Gap mmol/L BUN (9-20) mg/dL Creatinine (0.66-1.25) mg/dL Est GFR (CKD-EPI)AfAm (>60 ml/min/1.73 sqM) Est GFR (CKD-EPI)NonAf (>60 ml/min/1.73 sqM) Glucose (74-99) mg/dL Plasma Lactic Acid Chago 1.4 (0.7-2.0) mmol/L Calcium (8.4-10.2) mg/dL Total Bilirubin (0.2-1.3) mg/dL AST (17-59) U/L ALT (4-49) U/L Alkaline Phosphatase (38-126) U/L Ammonia <9 (<30) umol/L Troponin I <0.012 (0.000-0.034) ng/mL Total Protein (6.3-8.2) g/dL Albumin (3.5-5.0) g/dL Lipase (23-300) U/L Coronavirus (PCR) (Not Detectd) Blood Type O Negative Blood Type Recheck O Neg Bld Type Recheck Status No Antibody Screen NEGATIVE Spec Expiration Date 11/22/2020232411/19/20 Range/Units 14:42 WBC (3.8-10.6) k/uL RBC (4.30-5.90) m/uL Hgb (13.0-17.5) gm/dL Hct (39.0-53.0) % MCV (80.0-100.0) fL MCH (25.0-35.0) pg MCHC (31.0-37.0) g/dL RDW (11.5-15.5) % Plt Count (150-450) k/uL MPV Neutrophils % % Lymphocytes % % Monocytes % % Eosinophils % % Basophils % % Neutrophils # (1.3-7.7) k/uL Lymphocytes # (1.0-4.8) k/uL Monocytes # (0-1.0) k/uL Eosinophils # (0-0.7) k/uL Basophils # (0-0.2) k/uL PT (9.0-12.0) sec INR (<1.2) APTT (22.0-30.0) sec Sodium (137-145) mmol/L Potassium (3.5-5.1) mmol/L Chloride (98-107) mmol/L Carbon Dioxide (22-30) mmol/L Anion Gap mmol/L BUN (9-20) mg/dL Creatinine (0.66-1.25) mg/dL Est GFR (CKD-EPI)AfAm (>60 ml/min/1.73 sqM) Est GFR (CKD-EPI)NonAf (>60 ml/min/1.73 sqM) Glucose (74-99) mg/dL Plasma Lactic Acid Chago (0.7-2.0) mmol/L Calcium (8.4-10.2) mg/dL Total Bilirubin (0.2-1.3) mg/dL AST (17-59) U/L ALT (4-49) U/L Alkaline Phosphatase (38-126) U/L Ammonia (<30) umol/L Troponin I (0.000-0.034) ng/mL Total Protein (6.3-8.2) g/dL Albumin (3.5-5.0) g/dL Lipase (23-300) U/L Coronavirus (PCR) Not Detected (Not Detectd) Blood Type Blood Type Recheck Bld Type Recheck Status Antibody Screen Spec Expiration Date Disposition Clinical Impression: Cough, Coffee ground emesis, Vomiting, Epigastric discomfort, Fall Disposition: ADMITTED IP TO THIS [facility] Condition: Stable Is patient prescribed a controlled substance at d/c from ED?: No Time of Disposition: 14:12 Decision to Admit Reason: Admit from EC Decision Date: 11/19/20 Decision Time: 14:12
[2020-11-19 13:36] LABS: Basophils # (A) 0.1 k/uL (0-0.2); Basophils % (A) 0 %; Eosinophils # (A) 0.1 k/uL (0-0.7); Eosinophils % (A) 1 %; HCT 44.9 % (39.0-53.0); HGB 14.7 gm/dL (13.0-17.5); Lymphocytes # (A) 0.8 k/uL (1.0-4.8); Lymphocytes % (A) 6 %; MCH 31.4 pg (25.0-35.0); MCHC 32.9 g/dL (31.0-37.0); MCV 95.5 fL (80.0-100.0); Mean Platelet Volume 8.9; Monocytes # (A) 0.5 k/uL (0-1.0); Monocytes % (A) 4 %; Neutrophils # (A) 11.7 k/uL (1.3-7.7); Neutrophils % (A) 88 %; Platelet Count 215 k/uL (150-450); RDW 12.9 % (11.5-15.5); WBC 13.3 k/uL (3.8-10.6)
[2020-11-19 13:37] LABS: Partial Thromboplastin Time 21.5 sec (22.0-30.0)
[2020-11-19 13:39] LABS: Albumin 4.3 g/dL (3.5-5.0); Calcium 9.4 mg/dL (8.4-10.2); Total Bilirubin 1.3 mg/dL (0.2-1.3); Total Protein 7.4 g/dL (6.3-8.2)
[2020-11-19 13:41] LABS: Potassium 5.2 mmol/L (3.5-5.1)
[2020-11-19] MEDS ORDERED: NALOXONE 0.4 MG/ML 1 ML VIAL IV PRN (13:52)
--- NOTE | 2020-11-19 14:47 | CT ---
EXAMINATION TYPE: CT brain cspine wo con DATE OF EXAM: 11/19/2020 COMPARISON: 10/03/20 HISTORY: Fall CT DLP: 1277.[address] of the brain was performed. The ventricles, basal cisterns and sulci overlying the cerebral convexities demonstrate moderately se reza enlargement. Large area of encephalomalacia left MCA territory is redemonstrated. There is no evidence for intracranial hemorrhage or sulcal effacement. There is decreased attenuatio n about the periventricular white matter and deep white matter of both cerebral hemispheres, compatib le with chronic small vessel ischemia. No mass effects are seen. If symptoms persist consider MRI. Osseous calvarium is intact. Left temporal craniotomy change evident. Aneurysm clipping seen. IMPRESSION: 1. Age related atrophic and chronic small vessel ischemic change without acute intracranial process seen at this time. CT Cervical Spine: Unenhanced CT of the cervical spine was performed with bone and soft tissue window settings submitted . Coronal and sagittal reconstruction is obtained. There is normal alignment and prevertebral soft tissues. No evidence for acute cervical fracture . Mo derate to severe multilevel degenerative disc space narrowing and spondylosis. C5-C6 congenital parti al fusion. Anterolisthesis C2 on C3 unchanged from prior study measuring 2.3 mm. Biapical scarring. IMPRESSION: 1. No evidence for acute fracture or subluxation of the cervical spine.
--- NOTE | 2020-11-19 14:52 | CT ---
EXAMINATION TYPE: CT abdomen pelvis w con DATE OF EXAM: 11/19/2020 COMPARISON: 04/14/2016 HISTORY: Fall, possible GI bleed CT DLP: 693.3 mGycm CONTRAST: CT scan of the abdomen and pelvis is performed without Oral Contrast and with IV Contrast, patient in jected with 100 mL of Isovue 300. FINDINGS: LUNG BASES-: No visible nodule. Patchy basilar infiltrates. LIVER/GB: No calcified gallstones. No space occupying hepatic lesion. Biliary tree is of normal ca liber. PANCREAS: No inflammation. No distinct mass. SPLEEN: No splenic enlargement. No lesion seen. ADRENALS: No nodule. No thickening. KIDNEYS/BLADDER: No hydronephrosis. No nephrolithiasis. Simple cyst upper pole left kidney and simp le cyst lower pole right kidney. Urinary bladder grossly unremarkable. BOWEL: Normal appendix. Normal bowel caliber. No inflammation. There is evidence of fecal impaction within the rectosigmoid region. Moderate constipation within the remainder of the colon.. GENITAL ORGANS: No gross abnormality. LYMPH NODES: No greater than 1cm abdominal or pelvic lymph nodes are appreciated. AORTA: No significant abnormality. OSSEOUS STRUCTURES: No significant abnormality is seen. OTHER: Fat-containing umbilical hernia. IMPRESSION: 1. There is evidence of fecal impaction within the rectosigmoid region. Moderate constipation within the remainder of the colon. 2. Patchy basilar infiltrates.
--- NOTE | 2020-11-19 15:09 | XR ---
EXAMINATION TYPE: XR chest 2V DATE OF EXAM: 11/19/2020 COMPARISON: Chest x-ray 10/30/2020 HISTORY: Cough TECHNIQUE: Frontal and lateral views of the chest are obtained. FINDINGS: There is some improvement in aeration in the right midlung, right hemidiaphragm remains el evated. Abnormal attenuation in the right upper lobe also is somewhat improved. There is persistent p leural thickening. No evident pneumothorax or pleural effusion. Cardiac mediastinal silhouette shows a stable appearance accounting for differences in technique. There are overlying leads. IMPRESSION: There is some improvement in patient's aeration within the right lung.
--- NOTE | 2020-11-19 17:48 | P.HPIM ---
History of Present Illness H&P Date: 11/19/20 Chief Complaint: Dark vomitus History of presenting complaint: This is a 85-year-old patient of Dr. Balbuena. 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 Earlier this month patient was a dmitted with pneumonia and sent to the [facility] for rehab. EMS was called out at home. Patient stated he was feeling funny. Does not chest pain or body aches. Patient's pulse ox on room air was 80%. About a month ago admitted to the hospital with pneumonia and hypoxia. Patient now presents with the ER with his . Lasted patient started vomiting followed by a very dark/black vomitus. It was a large amount. Patient was discharged from [facility] 4 days ago. Appetite has not been too good. Rather weak and tired. Patient does take a baby aspirin. Patient a few years ago did have EGD by Dr. Cardona. A bit tired and rundown. No fever no chills. Some epigastric tenderness. Review of systems: GEN.: Tired EYES: None HEENT: None NECK: None RESPIRATORY: None] CARDIOVASCULAR: None GASTROINTESTINAL: As above GENITOURINARY: None MUSCULOSKELETAL: Joint pains LYMPHATICS: None HEMATOLOGICAL: None PSYCHIATRY: Forgetfulness NEUROLOGICAL: Right-sided weakness, dysarthria. Past medical history to include: Hypertension, hyperlipidemia, BPH, moderate cognitive impairment from prior stroke, GERD, right-sided weakness from prior stroke, dysarthria, chronic medical debility using a wheelchair Social history: Has a . Patient smoked for about 35 years, cigars. Stop smoking more 24 y ears ago. One drink at night. Uses a wheelchair On examination: VITAL SIGNS: 97.8, 66, 18, 144/68, 98% on room air GENERAL APPEARANCE: reclining in bed, awake, tired EYES: Pupils equal. Conjunctiva normal. NECK: JVD not raised. Mass not palpable. RESPIRATORY: Respiratory effort increased, decreased breath sounds CARDIOVASCULAR: First and second sounds normal. No edema. ABDOMEN: Soft. Liver and spleen not palpable. No tenderness. No mass palpable. PSYCHIATRY: Answering simple questions MUSCULAR skeletal: Evidence of OA point to point joints LYMPH : No lymph nodes palpable in neck and axilla NEUROLOGICAL: . Slight dysarthria. Right-sided weakness 3/5 INVESTIGATIONS, reviewed in the clinical context: WBC 13.3 hemoglobin 14.7 platelets 215 potassium 5.2 bun 23 creatinine 0.98 Coronavirus [PCR-not detected Chest x-ray film personally reviewed by me-elevated right diaphragm. CT abdomen: Fecal impaction in the rectosigmoid region. Some patchy basilar infiltrates Assessment and plan: -Acute upper GI bleed with Dr. nguyen in a patient does take baby aspirin. Stop aspirin. IV PPI. Follow H&H. 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 GI consulted. IV fluids. IV PPI. Patient will need EGD. Care was discussed with the patient and at the bedside. Questions answered. 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 - Past Family History Father History Unknown: Yes Mother Family Medical History: CVA/TIA, Dementia Additional Family Medical History / Comment(s): at age 94 or 95 Medications and Allergies Home Medications Medication Instructions Recorded Confirmed Type Multivitamins, Thera [Multivitamin 1 tab PO DAILY 10/16/15 11/19/20 History (formulary)] Aspirin [Adult Low Dose Aspirin EC] 81 mg PO DAILY 11/10/16 11/19/20 History Atorvastatin [Lipitor] 10 mg PO DAILY 07/09/18 11/19/20 History Cyanocobalamin (Vitamin B-12) 1,000 mcg PO DAILY 07/09/18 11/19/20 History [Vitamin B-12] Omeprazole 40 mg PO BID 07/09/18 11/19/20 History Tamsulosin [Flomax] 0.4 mg PO HS 07/09/18 11/19/20 History amLODIPine [Norvasc] 5 mg PO DAILY 07/09/18 11/19/20 History Cholecalciferol (Vitamin D3) 125 mcg PO DAILY 10/03/20 11/19/20 History [Vitamin D3 (5000 Iu)] Zinc Gluconate [Zinc] 50 mg PO DAILY 10/03/20 11/19/20 History Acetaminophen Tab [Tylenol] 650 mg PO Q6H PRN 11/19/20 11/19/20 History Atropine Ophth Soln 1% 5Ml [Isopto 1 drop SUBLINGUAL Q4H PRN 11/19/20 11/19/20 History Atropine 1% 5Ml] Allergies Allergy/AdvReac Type Severity Reaction Status Date / Time Penicillins Allergy Unknown Verified 10/27/20 20:12 Childhood Physical Exam Vitals: Vital Signs Temp Pulse Resp BP Pulse Ox 11/19/20 10:53 98.5 F 73 18 176/73 93 L Intake and Output 11/19/20 11/19/20 11/19/20 06:59 14:59 22:59 Other: Weight 79.379 kg Results CBC & Chem 7: 11/19/20 12:25 11/19/20 12:25 Labs: Abnormal Lab Results - Last 24 Hours (Table) 11/19/20 11/19/20 11/19/20 Range/Units 12:25 12:25 12:25 WBC 13.3 H (3.8-10.6) k/uL Neutrophils # 11.7 H (1.3-7.7) k/uL Lymphocytes # 0.8 L (1.0-4.8) k/uL APTT 21.5 L (22.0-30.0) sec Potassium 5.2 H (3.5-5.1) mmol/L BUN 23 H (9-20) mg/dL Glucose 103 H (74-99) mg/dL Alkaline Phosphatase 127 H (38-126) U/L Lipase 15 L (23-300) U/L
[2020-11-19] MEDS ORDERED: ACETAMINOPHEN TAB 325 MG TAB PO PRN (17:49)
[2020-11-19] MEDS: TAMSULOSIN 0.4 MG CAP.ER.24H PO SCH (21:19)
[2020-11-20 08:37] LABS: Basophils # (A) 0.1 k/uL (0-0.2); Basophils % (A) 1 %; Eosinophils # (A) 0.5 k/uL (0-0.7); Eosinophils % (A) 4 %; HCT 38.4 % (39.0-53.0); HGB 12.7 gm/dL (13.0-17.5); Lymphocytes # (A) 0.8 k/uL (1.0-4.8); Lymphocytes % (A) 7 %; MCH 32.1 pg (25.0-35.0); MCV 97.1 fL (80.0-100.0); Mean Platelet Volume 9.3; Monocytes # (A) 0.5 k/uL (0-1.0); Monocytes % (A) 5 %; Neutrophils % (A) 81 %; Platelet Count 170 k/uL (150-450); RBC 3.95 m/uL (4.30-5.90)
[2020-11-20] MEDS: ATORVASTATIN 10 MG TAB PO SCH (09:01)
[2020-11-20] MEDS: MULTIVITAMINS, THERA 1 EACH TAB PO SCH (09:01)
[2020-11-20] MEDS: amLODIPine 5 MG TAB PO SCH (09:01)
[2020-11-20] MEDS: CYANOCOBALAMIN 500 MCG TAB PO SCH (09:01)
--- NOTE | 2020-11-20 12:16 | P.CONS ---
History of Present Illness - Reason for Consult Consult date: 11/20/20 GI bleed Requesting physician: Sidney Fortune - Chief Complaint Coffee-ground emesis - History of Present Illness 85-year-old male with multiple medical comorbidities including hypertension, hyperlipidemia, BPH, GERD, prior CVA with residual deficits, debility and cognitive impairment from dementia who presented to the hospital for evaluation of coffee-ground emesis. Of note history is taken on review of the electronic medical record and in discussion with the patient's care staff due to his underlying memory impairment. As for reports the patient was brought to the emergency department for further evaluation after having episodes of vomiting which were described as dark in color. No reports of abdominal pain or bright red bleeding. Hemoglobin currently stable at 12.7 with WBC 11, platelet count 170,000, total bilirubin 1.3, alkaline phosphatase 127, AST 28 and ALT 17. Previously the patient has undergone endoscopic evaluation with EGD in 2016 significant for Harris's esophagus and hiatal hernia and colonoscopy in 05/2016 with poor prep and diverticulosis noted. No further episodes of nausea or vomiting or any signs or symptoms of GI bleeding since presentation. He is tolerating a liquid diet. 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 - Past Family History Father History Unknown: Yes Mother Family Medical History: CVA/TIA, Dementia Additional Family Medical History / Comment(s): at age 94 or 95 Medications and Allergies Home Medications Medication Instructions Recorded Confirmed Type Multivitamins, Thera [Multivitamin 1 tab PO DAILY 10/16/15 11/19/20 History (formulary)] Aspirin [Adult Low Dose Aspirin EC] 81 mg PO DAILY 11/10/16 11/19/20 History Atorvastatin [Lipitor] 10 mg PO DAILY 07/09/18 11/19/20 History Cyanocobalamin (Vitamin B-12) 1,000 mcg PO DAILY 07/09/18 11/19/20 History [Vitamin B-12] Omeprazole 40 mg PO BID 07/09/18 11/19/20 History Tamsulosin [Flomax] 0.4 mg PO HS 07/09/18 11/19/20 History amLODIPine [Norvasc] 5 mg PO DAILY 07/09/18 11/19/20 History Cholecalciferol (Vitamin D3) 125 mcg PO DAILY 10/03/20 11/19/20 History [Vitamin D3 (5000 Iu)] Zinc Gluconate [Zinc] 50 mg PO DAILY 10/03/20 11/19/20 History Acetaminophen Tab [Tylenol] 650 mg PO Q6H PRN 11/19/20 11/19/20 History Atropine Ophth Soln 1% 5Ml [Isopto 1 drop SUBLINGUAL Q4H PRN 11/19/20 11/19/20 History Atropine 1% 5Ml] Allergies Allergy/AdvReac Type Severity Reaction Status Date / Time Penicillins Allergy Unknown Verified 10/27/20 20:12 Childhood Physical Exam Vitals: Vital Signs Temp Pulse Pulse Resp BP BP Pulse Ox 11/20/20 08:58 97.5 F L 65 16 137/60 93 L 11/20/20 04:00 97.8 F 55 L 16 158/68 96 11/20/20 01:13 70 18 11/20/20 00:00 97.8 F 70 18 124/70 94 L 11/19/20 20:00 97.8 F 65 18 157/90 94 L 11/19/20 17:05 99.1 F 65 18 169/72 98 11/19/20 10:53 98.5 F 73 18 176/73 93 L Intake and Output 11/19/20 11/20/20 11/20/20 22:59 06:59 14:59 Intake Total 150 Output Total 250 Balance 150 -250 Intake: Oral 150 Output: Urine 250 Other: # Voids 1 Weight 79.379 kg On physical examination, patient appears comfortable in no apparent distress. HEAD: Normocephalic, atraumatic. EYES: No scleral icterus. No conjunctival injection. MOUTH: No lesions, tongue midline. NECK: Trachea midline, no gross abnormalities. CHEST: Decreased air entry in all lung glaser. HEART: S1-S2 appreciated. ABDOMEN: Soft, thin and nontender. Bowel sounds are positive. No organomegaly. No guarding or rigidity. EXTREMITIES: No pedal edema. SKIN: No rashes, no jaundice. NEUROLOGIC: Alert and oriented to person. Results CBC & Chem 7: 11/20/20 07:52 11/19/20 12:25 Labs: Abnormal Lab Results - Last 24 Hours (Table) 11/19/20 11/19/20 11/19/20 Range/Units 12:25 12:25 12:25 WBC 13.3 H (3.8-10.6) k/uL RBC (4.30-5.90) m/uL Hgb (13.0-17.5) gm/dL Hct (39.0-53.0) % Neutrophils # 11.7 H (1.3-7.7) k/uL Lymphocytes # 0.8 L (1.0-4.8) k/uL APTT 21.5 L (22.0-30.0) sec Potassium 5.2 H (3.5-5.1) mmol/L BUN 23 H (9-20) mg/dL Glucose 103 H (74-99) mg/dL Alkaline Phosphatase 127 H (38-126) U/L Lipase 15 L (23-300) U/L 11/20/20 Range/Units 07:52 WBC 11.0 H (3.8-10.6) k/uL RBC 3.95 L (4.30-5.90) m/uL Hgb 12.7 L (13.0-17.5) gm/dL Hct 38.4 L (39.0-53.0) % Neutrophils # 9.0 H (1.3-7.7) k/uL Lymphocytes # 0.8 L (1.0-4.8) k/uL APTT (22.0-30.0) sec Potassium (3.5-5.1) mmol/L BUN (9-20) mg/dL Glucose (74-99) mg/dL Alkaline Phosphatase (38-126) U/L Lipase (23-300) U/L CT scan - abdomen: report reviewed (Computed tomography scan of the abdomen with findings of rectosigmoid fecal impaction with moderate constipation.) Assessment and Plan (1) Coffee ground emesis Narrative/Plan: 85-year-old male with multiple medical comorbidities presenting for evaluation of coffee-ground emesis. No further signs or symptoms of GI bleeding since presentation, no further nausea or vomiting. Hemoglobin stable at 12.7. Last EGD in 2017 significant for hiatal hernia and Harris's esophagus. Unclear etiology, may be related to esophagitis, gastritis, peptic ulcer disease, AVM or other etiology. Current Visit: Yes Status: Acute Code(s): K92.0 - HEMATEMESIS SNOMED Code(s): 31338498 (2) Constipation Narrative/Plan: Computed tomography scan of the abdomen with fecal impaction of the rectosigmoid and fecal stasis/constipation. Current Visit: Yes Status: Acute Code(s): K59.00 - CONSTIPATION, UNSPECIFIED SNOMED Code(s): 90104074 Plan: Supportive care Okay to advance to full liquid diet Continue to monitor hemoglobin and hematocrit and transfuse as needed Continue to monitor for signs or symptoms of GI bleed Protonix twice daily added Tap water enema Lactulose daily Colace daily Repeat x-ray of the abdomen tomorrow for evaluation of stool burden Consideration for EGD if further evidence of GI bleeding or precipitous fall in hemoglobin Thank you for allowing us to participate in the care of the patient
[2020-11-20] MEDS: SODIUM CHLORIDE 0.9% 1,000 ML IV SCH ×2 (12:19→16:33)
[2020-11-20] MEDS: PANTOPRAZOLE 40 MG TABLET PO SCH ×2 (12:21→16:51)
[2020-11-20] MEDS: DOCUSATE 100 MG CAP PO SCH (12:21)
[2020-11-20] MEDS: LACTULOSE 20 GM/30 ML CUP PO SCH (12:21)
[2020-11-20 12:34] VITALS: BMI 24.4
--- NOTE | 2020-11-20 14:16 | P.PN ---
Progress Note - Text Progress Note Date: 11/20/20 Chief Complaint: Dark vomitus History of presenting complaint: This is a 85-year-old patient of Dr. aBlbuena. 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 Earlier this month patient was admitted with pneumonia [facility] EMS was called out at home. Patient stated he was feeling funny. Does not chest pain or body aches. Patient's pulse ox on room air was 80%. About a month ago admitted to the hospital with pneumonia and hypoxia. Patient now presents with the ER with his . Lasted patient started vomiting followed by a very dark/black vomitus. It was a large amount. Patient was discharged from [facility] 4 days ago. Appetite has not been too good. Rather weak and tired. Patient does take a baby aspirin. Patient a few years ago did have EGD by Dr. Cardona. A bit tired and rundown. No fever no chills. Some epigastric tenderness. was seen by Dr. Perdomo from GI. Aspirin was held. PPIs added. He decided to proceed conservatively. Weight and watch. Today: Sitting up in bed. Feels a bit better. Tolerating a full liquid diet. No further vomitus. Review of systems: Was done for constitutional, cardiovascular, GI, pulmonary. relevant finding as above Active Medications Acetaminophen (Acetaminophen Tab 325 Mg Tab) 650 mg PO Q6H PRN PRN Reason: Mild Pain or Fever > 100.5 Amlodipine Besylate (Amlodipine 5 Mg Tab) 5 mg PO DAILY [facility] Last Admin: 11/20/20 09:01 Dose: 5 mg Documented by: Atorvastatin Calcium (Atorvastatin 10 Mg Tab) 10 mg PO DAILY [facility] Last Admin: 11/20/20 09:01 Dose: 10 mg Documented by: Atropine Sulfate (Atropine Ophth Soln 1% 5ml Btl) 1 drops SUBLINGUAL Q4H PRN PRN Reason: Secretions Cyanocobalamin (Cyanocobalamin 500 Mcg Tab) 1,000 mcg PO DAILY [facility] Last Admin: 11/20/20 09:01 Dose: 1,000 mcg Documented by: Docusate Sodium (Docusate 100 Mg Cap) 100 mg PO DAILY [facility] Last Admin: 11/20/20 12:21 Dose: 100 mg Documented by: Sodium Chloride (Saline 0.9%) 1,000 mls @ 75 mls/hr IV .[id number] [facility] Last Admin: 11/20/20 12:19 Dose: Not Given Documented by: Lactulose (Lactulose 20 Gm/30 Ml Cup) 20 gm PO DAILY [facility] Last Admin: 11/20/20 12:21 Dose: 20 gm Documented by: Multivitamins (Multivitamins, Thera 1 Each Tab) 1 each PO DAILY [facility] Last Admin: 11/20/20 09:01 Dose: 1 each Documented by: Naloxone HCl (Naloxone 0.4 Mg/Ml 1 Ml Vial) 0.2 mg IV Q2M PRN PRN Reason: Opioid Reversal Pantoprazole Sodium (Pantoprazole 40 Mg Tablet) 40 mg PO AC-BID [facility] Last Admin: 11/20/20 12:21 Dose: 40 mg Documented by: Tamsulosin HCl (Tamsulosin 0.4 Mg Cap.Er.24h) 0.4 mg PO HS [facility] Last Admin: 11/19/20 21:19 Dose: 0.4 mg Documented by: Past medical history to include: Hypertension, hyperlipidemia, BPH, moderate cognitive impairment from prior stroke, GERD, right-sided weakness from prior stroke, dysarthria, chronic medical debility using a wheelchair Social history: Has a . Patient smoked for about 35 years, cigars. Stop smoking more 24 years ago. One drink at night. Uses a wheelchair On examination: VITAL SIGNS: 97.5, 65, 16, 137/60, 93% on room air GENERAL APPEARANCE: reclining in bed, awake, awake EYES: Pupils equal. Conjunctiva pale NECK: JVD not raised. Mass not palpable. RESPIRATORY: Respiratory effort increased, decreased breath sounds CARDIOVASCULAR: First and second sounds normal. No edema. ABDOMEN: Soft. Liver and spleen not palpable. No tenderness. No mass palpable. 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 dysarthria. Right-sided weakness 3/5 INVESTIGATIONS, reviewed in the clinical context: November 20: WBC 7 hemoglobin 12.7 WBC 13.3 hemoglobin 14.7 platelets 215 potassium 5.2 bun 23 creatinine 0.98 Coronavirus [PCR-not detected Chest x-ray film personally reviewed by me-elevated right diaphragm. CT abdomen: Fecal impaction in the rectosigmoid region. Some patchy basilar infiltrates Assessment and plan: -Acute upper GI bleed with Dr. nguyen in a patient does take baby aspirin. Stop aspirin. IV PPI. Follow H&H. IV fluids. 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 Advanced to a soft bland diet. Is stable possible discharge tomorrow.
[2020-11-20] MEDS ORDERED: bisacodyL 10 MG SUPP RECTAL STA (14:43)
[2020-11-20] MEDS: TAMSULOSIN 0.4 MG CAP.ER.24H PO SCH (20:23)
[2020-11-21] MEDS: PANTOPRAZOLE 40 MG TABLET PO SCH ×2 (06:56→17:34)
--- NOTE | 2020-11-21 07:06 | XR ---
EXAMINATION TYPE: XR abdomen 1V DATE OF EXAM: 11/21/2020 6:52 AM CLINICAL HISTORY: Constipation and pain. TECHNIQUE: 3 supine KUB images of the abdomen are obtained. COMPARISON: CT abdomen and pelvis November 19, 2020. FINDINGS: Elevated right hemidiaphragm. Gas seen in nondistended small bowel loops. Gas and fecal mat erial seen in nondistended colon. Mild to moderate prominence of fecal material in the transverse col on and rectum. Bilateral arterial vascular calcification in the groin region. Osseous structures are intact. IMPRESSION: Overall nonobstructive bowel gas pattern. [id number] diffuse colonic fecal stasis noted current ly.
[2020-11-21 07:52] LABS: Basophils # (A) 0.1 k/uL (0-0.2); Basophils % (A) 1 %; Eosinophils # (A) 0.5 k/uL (0-0.7); Eosinophils % (A) 6 %; HCT 37.8 % (39.0-53.0); HGB 12.7 gm/dL (13.0-17.5); Lymphocytes # (A) 0.8 k/uL (1.0-4.8); Lymphocytes % (A) 9 %; MCH 31.8 pg (25.0-35.0); MCHC 33.6 g/dL (31.0-37.0); MCV 94.7 fL (80.0-100.0); Mean Platelet Volume 8.3; Monocytes # (A) 0.5 k/uL (0-1.0); Monocytes % (A) 6 %; Neutrophils # (A) 6.6 k/uL (1.3-7.7); Neutrophils % (A) 78 %; Platelet Count 172 k/uL (150-450); RBC 3.99 m/uL (4.30-5.90); RDW 12.8 % (11.5-15.5); WBC 8.4 k/uL (3.8-10.6)
[2020-11-21 08:07] LABS: African American GFR (CKD) >90 (>60 ml/min/1.73 sqM); Anion Gap 5 mmol/L; Blood Urea Nitrogen 14 mg/dL (9-20); Calcium 8.5 mg/dL (8.4-10.2); Carbon Dioxide 31 mmol/L (22-30); Chloride 102 mmol/L (98-107); Glucose 91 mg/dL (74-99); Non-African American GFR(CKD) 81 (>60 ml/min/1.73 sqM); Potassium 3.8 mmol/L (3.5-5.1); Sodium 138 mmol/L (137-145)
[2020-11-21] MEDS: DOCUSATE 100 MG CAP PO SCH (08:46)
[2020-11-21] MEDS: CYANOCOBALAMIN 500 MCG TAB PO SCH (08:46)
[2020-11-21] MEDS: LACTULOSE 20 GM/30 ML CUP PO SCH (08:47)
[2020-11-21] MEDS: amLODIPine 5 MG TAB PO SCH (08:47)
[2020-11-21] MEDS: MULTIVITAMINS, THERA 1 EACH TAB PO SCH (08:47)
[2020-11-21] MEDS: ATORVASTATIN 10 MG TAB PO SCH (08:47)
[2020-11-21] MEDS ORDERED: bisacodyL 10 MG SUPP RECTAL STA (10:26)
[2020-11-21] MEDS: SODIUM CHLORIDE 0.9% 1,000 ML IV SCH ×2 (13:28→17:34)
--- NOTE | 2020-11-21 16:45 | P.PN ---
Subjective Progress Note Date: 11/21/20 Principal diagnosis: coffee-ground emesis, constipation the patient is seen lying in bed today. No further signs or symptoms of GI bleeding. The patient did have a large nonbloody bowel movement reported. Objective - Vital Signs Vital signs: Vital Signs Temp 97.6 F 11/21/20 08:00 Pulse 62 11/21/20 08:00 Resp 16 11/21/20 08:00 BP 147/68 11/21/20 08:00 Pulse Ox 91 L 11/21/20 08:00 Intake & Output 11/20/20 11/21/20 11/21/20 18:59 06:59 18:59 Intake Total 330 20 Output Total 800 Balance -470 20 Weight 79.379 kg Intake: Oral 330 20 Output: Urine 800 Other: Voiding Method Urinal Urinal # Voids 1 - Exam On physical examination, patient appears comfortable in no apparent distress. HEAD: Normocephalic, atraumatic. EYES: No scleral icterus. No conjunctival injection. MOUTH: No lesions, tongue midline. NECK: Trachea midline, no gross abnormalities. ABDOMEN: Soft, nontender to palpation. Bowel sounds are positive. No organomegaly. No guarding or rigidity. EXTREMITIES: No pedal edema. SKIN: No rashes, no jaundice. NEUROLOGIC: Alert and oriented to person. - Labs CBC & Chem 7: 11/21/20 07:20 11/21/20 07:20 Labs: Abnormal Lab Results - Last 24 Hours (Table) 11/21/20 11/21/20 Range/Units 07:20 07:20 RBC 3.99 L (4.30-5.90) m/uL Hgb 12.7 L (13.0-17.5) gm/dL Hct 37.8 L (39.0-53.0) % Lymphocytes # 0.8 L (1.0-4.8) k/uL Carbon Dioxide 31 H (22-30) mmol/L Assessment and Plan (1) Coffee ground emesis Narrative/Plan: 85-year-old male with multiple medical comorbidities presenting for evaluation of coffee-ground emesis. No further signs or symptoms of GI bleeding since presentation, no further nausea or vomiting. Hemoglobin stable at 12.7today. Last EGD in 2017 significant for hiatal hernia and Harris's esophagus. Unclear etiology, may be related to esophagitis, gastritis, peptic ulcer disease, AVM or other etiology. Extensive discussion with the patient's who is bedsideWith all of the risks, benefits and possible complications of endoscopic evaluation discussed with the patient and his at length at this time she is interested in proceeding with the EGD to find out what caused the coffee ground emesis. Current Visit: Yes Status: Acute Code(s): K92.0 - HEMATEMESIS SNOMED Code(s): 53961574 (2) Constipation Narrative/Plan: Computed tomography scan of the abdomen with fecal impaction of the rectosigmoid and fecal stasis/constipation.patient was started on a bowel regimen yesterday with a large bowel movement reported today. Current Visit: Yes Status: Acute Code(s): K59.00 - CONSTIPATION, UNSPECIFIED SNOMED Code(s): 26550090 Plan: Supportive care Okay to advance to full liquid diet, nothing by mouth after midnight Continue to monitor hemoglobin and hematocrit and transfuse as needed Continue to monitor for signs or symptoms of GI bleed Protonix twice daily Lactulose daily Colace daily Repeat x-ray of the abdomen again showed colonic stasis this morning, however patient subsequently had bowel movement extensive discussion with the patient'swife who is bedside today and would like to proceed with endoscopic evaluation with EGD, all of the risks, benefits and possible complications of the procedure discussed with the patient's at length with all of her questions answered to her satisfaction Thank you for allowing us to participate in the care of the patient
[2020-11-21] MEDS: ATROPINE OPHTH SOLN 1% 5ML BTL SUBLINGUAL PRN (17:34)
--- NOTE | 2020-11-21 19:18 | P.PN ---
Progress Note - Text Progress Note Date: 11/21/20 Chief Complaint: Dark vomitus History of presenting complaint: This is a 85-year-old patient of Dr. Balbuena. 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 Earlier this month patient was admitted with pneumonia and sent to the [facility] for rehab. EMS was called out at home. Patient stated he was feeling funny. Does not chest pain or body aches. Patient's pulse ox on room air was 80%. About a month ago admitted to the hospital with pneumonia and hypoxia. Patient now presents with the ER with his . Lasted patient started vomiting followed by a very dark/black vomitus. It was a large amount. Patient was discharged from [facility] 4 days ago. Appetite has not been too good. Rather weak and tired. Patient does take a baby aspirin. Patient a few years ago did have EGD by Dr. Cardona. A bit tired and rundown. No fever no chills. Some epigastric tenderness. was seen by Dr. Perdomo from GI. Aspirin was held. PPIs added. He decided to proceed conservatively. Weight and watch.patient also has significant fecal stasis. Today: Dr. Perdomo evaluated the case and after discussion with the and decided to proceed with endoscopy.laxative is being given. Review of systems: Was done for constitutional, cardiovascular, GI, pulmonary. relevant finding as above Active Medications Acetaminophen (Acetaminophen Tab 325 Mg Tab) 650 mg PO Q6H PRN PRN Reason: Mild Pain or Fever > 100.5 Amlodipine Besylate (Amlodipine 5 Mg Tab) 5 mg PO DAILY [facility] Last Admin: 11/21/20 08:47 Dose: 5 mg Documented by: Atorvastatin Calcium (Atorvastatin 10 Mg Tab) 10 mg PO DAILY [facility] Last Admin: 11/21/20 08:47 Dose: 10 mg Documented by: Atropine Sulfate (Atropine Ophth Soln 1% 5ml Btl) 1 drops SUBLINGUAL Q4H PRN PRN Reason: Secretions Last Admin: 11/21/20 17:34 Dose: 1 drops Documented by: Cyanocobalamin (Cyanocobalamin 500 Mcg Tab) 1,000 mcg PO DAILY [facility] Last Admin: 11/21/20 08:46 Dose: 1,000 mcg Documented by: Docusate Sodium (Docusate 100 Mg Cap) 100 mg PO DAILY [facility] Last Admin: 11/21/20 08:46 Dose: 100 mg Documented by: Sodium Chloride (Saline 0.9%) 1,000 mls @ 75 mls/hr IV .[id number] [facility] Last Admin: 11/21/20 17:34 Dose: Not Given Documented by: Lactulose (Lactulose 20 Gm/30 Ml Cup) 20 gm PO DAILY [facility] Last Admin: 11/21/20 08:47 Dose: 20 gm Documented by: Multivitamins (Multivitamins, Thera 1 Each Tab) 1 each PO DAILY [facility] Last Admin: 11/21/20 08:47 Dose: 1 each Documented by: Naloxone HCl (Naloxone 0.4 Mg/Ml 1 Ml Vial) 0.2 mg IV Q2M PRN PRN Reason: Opioid Reversal Pantoprazole Sodium (Pantoprazole 40 Mg Tablet) 40 mg PO AC-BID [facility] Last Admin: 11/21/20 17:34 Dose: 40 mg Documented by: Tamsulosin HCl (Tamsulosin 0.4 Mg Cap.Er.24h) 0.4 mg PO HS [facility] Last Admin: 11/20/20 20:23 Dose: 0.4 mg Documented by: Past medical history to include: Hypertension, hyperlipidemia, BPH, moderate cognitive impairment from prior stroke, GERD, right-sided weakness from prior stroke, dysarthria, chronic medical debility using a wheelchair Social history: Has a . Patient smoked for about 35 years, cigars. Stop smoking more 24 years ago. One drink at night. Uses a wheelchair On examination: VITAL SIGNS:97.5, 60, 16, 148/80, 91% room air GENERAL APPEARANCE: reclining in bed, awake, eating EYES: Pupils equal. Conjunctiva pale NECK: JVD not raised. Mass not palpable. RESPIRATORY: Respiratory effort increased, decreased breath sounds CARDIOVASCULAR: First and second sounds normal. No edema. ABDOMEN: Soft. Liver and spleen not palpable. No tenderness. No mass palpable. 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 dysarthria. Right-sided weakness 3/5 INVESTIGATIONS, reviewed in the clinical context: November 21: WBC 8.4 hemoglobin 12.7 potassium 3.8 abdominal x-ray: Moderate diffuse colonic fecal stasis. November 20: WBC 7 hemoglobin 12.7 WBC 13.3 hemoglobin 14.7 platelets 215 potassium 5.2 bun 23 creatinine 0.98 Coronavirus [PCR-not detected Chest x-ray film personally reviewed by me-elevated right diaphragm. CT abdomen: Fecal impaction in the rectosigmoid region. Some patchy basilar infiltrates Assessment and plan: -Acute upper GI bleed with Dr. nguyen in a patient does take baby aspirin. Stop aspirin. IV PPI. Follow H&H. IV fluids. 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 laxatives given Patient for endoscopy tomorrow.
[2020-11-21] MEDS: TAMSULOSIN 0.4 MG CAP.ER.24H PO SCH (20:32)
[2020-11-22] MEDS: SODIUM CHLORIDE 0.9% 1,000 ML IV SCH ×2 (02:37→20:00)
[2020-11-22] MEDS: PANTOPRAZOLE 40 MG TABLET PO SCH ×2 (06:06→17:00)
[2020-11-22] MEDS: amLODIPine 5 MG TAB PO SCH (08:47)
[2020-11-22] MEDS ORDERED: PROPOFOL 10 MG/ML 20 ML VIAL IV ONE (12:48)
[2020-11-22] MEDS ORDERED: LIDOCAINE 1% INJ 10MG/ML (20 ML MDV) ONE (12:48)
--- NOTE | 2020-11-22 13:05 | P.PCN ---
Date of Procedure: 11/22/20 Procedure(s) Performed: BRIEF HISTORY: Patient is a 85-year-old, pleasant, white male admitted hospital with coffee-ground emesis. Hemoglobin was 12.3 g/dL. Has prior history of GERD/Harris's esophagus. He scheduled for an upper endoscopy to evaluate further. PROCEDURE PERFORMED: Esophagogastroduodenoscopy with biopsy. PREOPERATIVE DIAGNOSIS: Acute upper GI bleed. IV sedation per anesthesia. PROCEDURE: After informed consent was obtained, the patient was brought into the endoscopy unit. IV sedation was administered by Anesthesia under continuous monitoring. Initially the Olympus GIF-140 video endoscope was inserted into the mouth. Esophagus intubated without any difficulty. It was gradually advanced into the stomach and duodenum and carefully examined. The bulb and the second part of the duodenum appeared normal. The scope at this time was withdrawn to the stomach, adequately insufflated with air, and upon careful examination, mucosa of the antrum, body, cardia and the fundus appeared normal. The scope was then withdrawn into the esophagus. The GE junction was located at 41 cm from the incisors. Small sliding type hiatal hernia noted. There was long segment of Harris's esophagus extending from 31-41 cm from the incisors and a small superficial ulceration in the distal Harris's esophagus which was biopsied. The rest of the esophagus appeared normal. There were no erosions or ulcerations seen and the patient tolerated the procedure well. IMPRESSION: 1. Long segment Harris's esophagus extending from 31-40 cm from the incisors status post multiple biopsies. 2. Small superficial ulceration in the segment of Harris's esophagus at 40 cm from the incisors 3. Small hiatal hernia3.. RECOMMENDATIONS: The findings of this examination were discussed with the patient . Diet will be advanced as tolerated. Continue with Protonix 40 mg twice daily. He can be discharged home today or tomorrow with an outpatient follow-up in 2-3 weeks.
[2020-11-22] MEDS ORDERED: LACTATED RINGERS 500 ML IV ONE (13:06)
[2020-11-22] MEDS: LACTULOSE 20 GM/30 ML CUP PO SCH (13:25)
[2020-11-22] MEDS: DOCUSATE 100 MG CAP PO SCH (17:01)
[2020-11-22] MEDS: MULTIVITAMINS, THERA 1 EACH TAB PO SCH (17:01)
[2020-11-22] MEDS: ATORVASTATIN 10 MG TAB PO SCH (17:01)
[2020-11-22] MEDS: CYANOCOBALAMIN 500 MCG TAB PO SCH (17:01)
[2020-11-22] MEDS: ATROPINE OPHTH SOLN 1% 5ML BTL SUBLINGUAL PRN (17:11)
--- NOTE | 2020-11-22 17:14 | P.PN ---
Progress Note - Text Progress Note Date: 11/22/20 Chief Complaint: Dark vomitus History of presenting complaint: This is a 85-year-old patient of Dr. Balbuena. 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 Earlier this month patient was admitted with pneumonia and sent to the [facility] for rehab. EMS was called out at home. Patient stated he was feeling funny. Does not chest pain or body aches. Patient's pulse ox on room air was 80%. About a month ago admitted to the hospital with pneumonia and hypoxia. Patient now presents with the ER with his . Lasted patient started vomiting followed by a very dark/black vomitus. It was a large amount. Patient was discharged from [facility] 4 days ago. Appetite has not been too good. Rather weak and tired. Patient does take a baby aspirin. Patient a few years ago did have EGD by Dr. Cardona. A bit tired and rundown. No fever no chills. Some epigastric tenderness. was seen by Dr. Perdomo from GI. Aspirin was held. PPIs added. He decided to proceed conservatively. Weight and watch.patient also has significant fecal stasis. Responded well to laxative. Could bowel movement. Today: Saw patient this morning. Pending endoscopy. Laying in bed. Late in the day underwent EGD: Long segment of Harris's esophagus with small superficial ulcerations noted. Review of systems: Was done for constitutional, cardiovascular, GI, pulmonary. relevant finding as above Active Medications Acetaminophen (Acetaminophen Tab 325 Mg Tab) 650 mg PO Q6H PRN PRN Reason: Mild Pain or Fever > 100.5 Amlodipine Besylate (Amlodipine 5 Mg Tab) 5 mg PO DAILY [facility] Last Admin: 11/22/20 08:47 Dose: 5 mg Documented by: Atorvastatin Calcium (Atorvastatin 10 Mg Tab) 10 mg PO DAILY [facility] Last Admin: 11/22/20 17:01 Dose: 10 mg Documented by: Atropine Sulfate (Atropine Ophth Soln 1% 5ml Btl) 1 drops SUBLINGUAL Q4H PRN PRN Reason: Secretions Last Admin: 11/21/20 17:34 Dose: 1 drops Documented by: Cyanocobalamin (Cyanocobalamin 500 Mcg Tab) 1,000 mcg PO DAILY [facility] Last Admin: 11/22/20 17:01 Dose: 1,000 mcg Documented by: Docusate Sodium (Docusate 100 Mg Cap) 100 mg PO DAILY [facility] Last Admin: 11/22/20 17:01 Dose: 100 mg Documented by: Sodium Chloride (Saline 0.9%) 1,000 mls @ 75 mls/hr IV .[id number] [facility] Last Admin: 11/22/20 02:37 Dose: Not Given Documented by: Lactulose (Lactulose 20 Gm/30 Ml Cup) 20 gm PO DAILY [facility] Last Admin: 11/22/20 13:25 Dose: Not Given Documented by: Multivitamins (Multivitamins, Thera 1 Each Tab) 1 each PO DAILY [facility] Last Admin: 11/22/20 17:01 Dose: 1 each Documented by: Naloxone HCl (Naloxone 0.4 Mg/Ml 1 Ml Vial) 0.2 mg IV Q2M PRN PRN Reason: Opioid Reversal Pantoprazole Sodium (Pantoprazole 40 Mg Tablet) 40 mg PO AC-BID [facility] Last Admin: 11/22/20 17:00 Dose: 40 mg Documented by: Tamsulosin HCl (Tamsulosin 0.4 Mg Cap.Er.24h) 0.4 mg PO HS [facility] Last Admin: 11/21/20 20:32 Dose: 0.4 mg Documented by: Past medical history to include: Hypertension, hyperlipidemia, BPH, moderate cognitive impairment from prior stroke, GERD, right-sided weakness from prior stroke, dysarthria, chronic medical debility using a wheelchair Social history: Has a . Patient smoked for about 35 years, cigars. Stop smoking more 24 years ago. One drink at night. Uses a wheelchair On examination: VITAL SIGNS: 97.7, 72, 18, 139/87, 92% room air GENERAL APPEARANCE: Laying in bed, awake EYES: Pupils equal. Conjunctiva pale NECK: JVD not raised. Mass not palpable. RESPIRATORY: Respiratory effort increased, decreased breath sounds CARDIOVASCULAR: First and second sounds normal. No edema. ABDOMEN: Soft. Liver and spleen not palpable. No tenderness. No mass palpable. 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 dysarthria. Right-sided weakness 3/5 INVESTIGATIONS, reviewed in the clinical context: EGD: Long segment of Harris's esophagus with small superficial ulcerations. November 21: WBC 8.4 hemoglobin 12.7 potassium 3.8 abdominal x-ray: Moderate diffuse colonic fecal stasis. November 20: WBC 7 hemoglobin 12.7 WBC 13.3 hemoglobin 14.7 platelets 215 potassium 5.2 bun 23 creatinine 0.98 Coronavirus [PCR-not detected Chest x-ray film personally reviewed by me-elevated right diaphragm. CT abdomen: Fecal impaction in the rectosigmoid region. Some patchy basilar infiltrates Assessment and plan: -Acute upper GI bleed with dark vomitus in a patient does take baby aspirin. Secondary to Harris's esophagus Stop aspirin. PPI. Follow H&H. 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 Advance diet. Discharged tomorrow.
[2020-11-22] MEDS: TAMSULOSIN 0.4 MG CAP.ER.24H PO SCH (19:59)
[2020-11-23 04:14] VITALS: RESP 18
[2020-11-23] MEDS: PANTOPRAZOLE 40 MG TABLET PO SCH (06:26)
[2020-11-23 09:38] VITALS: TEMP 98.2
[2020-11-23] MEDS: CYANOCOBALAMIN 500 MCG TAB PO SCH (10:27)
[2020-11-23] MEDS: ATORVASTATIN 10 MG TAB PO SCH (10:28)
[2020-11-23] MEDS: MULTIVITAMINS, THERA 1 EACH TAB PO SCH (10:28)
[2020-11-23] MEDS: DOCUSATE 100 MG CAP PO SCH (10:28)
[2020-11-23] MEDS: amLODIPine 5 MG TAB PO SCH (10:29)
[2020-11-23] MEDS: LACTULOSE 20 GM/30 ML CUP PO SCH (10:29)
[2020-11-23 13:49] VITALS: BP 109/66; PULSE 70
--- NOTE | 2020-11-23 14:22 | P.PN ---
Subjective Progress Note Date: 11/23/20 Principal diagnosis: Coffee-ground emesis 5-year-old male with multiple medical comorbidities presented to the emergency department with complaints of coffee-ground emesis. He has a past medical history of Harris's esophagus. Yesterday he underwent an upper endoscopy which showed a long segment Harris's esophagus, small superficial ulceration and segment of Harris's esophagus, and a small hiatal hernia. The patient is seen and examined today without any complaints of abdominal pain, nausea, or vomiting. No further episodes of coffee-ground emesis. Objective - Vital Signs Vital signs: Vital Signs Temp 98.2 F 11/23/20 08:00 Pulse 67 11/23/20 08:00 Resp 18 11/23/20 08:00 BP 156/81 11/23/20 08:00 Pulse Ox 93 L 11/23/20 08:00 Intake & Output 11/22/20 11/23/20 11/23/20 18:59 06:59 18:59 Intake Total 340 250 240 Output Total 0 Balance 340 250 240 Intake: IV 100 Oral 240 250 240 Output: Stool 0 Other: Voiding Method Urinal Diaper Incontinent # Voids 2 1 # Bowel Movements 1 - Exam General appearance: The patient is alert, oriented, appears in no acute distress. HET: Head is normocephalic and atraumatic. Conjunctiva pink. Sclera anicteric. Neck: Supple without lymphadenopathy. Abdomen: Soft, nontender, nondistended with bowel sounds. No guarding or rigidity. Extremities: Normal skin color and turgor. No pedal edema Skin: No rashes, no jaundice Neurological: No focal deficits. Alert and oriented 3. - Labs CBC & Chem 7: 11/21/20 07:20 11/21/20 07:20 Assessment and Plan (1) Coffee ground emesis Narrative/Plan: A 5-year-old male with multiple medical comorbidities presenting for evaluation of coffee-ground emesis. No further signs or symptoms of GI bleed since presentation for further nausea or vomiting. Hemoglobin was stable on admission of 12.7. Last EGD 2017 significant for hiatal hernia and Harris's esophagus. Unclear etiology may be related to esophagitis, gastritis, peptic ulcer disease, AVM, or other etiology. He underwent a upper endoscopy yesterday revealing a long segment of Harris's esophagus, small superficial ulceration in the segment of Harris's esophagus and a small hiatal hernia. Current Visit: Yes Status: Acute Code(s): K92.0 - HEMATEMESIS SNOMED Code(s): 61981804 (2) Constipation Current Visit: Yes Status: Acute Code(s): K59.00 - CONSTIPATION, UNSPECIFIED SNOMED Code(s): 16475747 Plan: 1. Diet as tolerated 2. Continue Protonix 40 mg twice a day 3. Continue to monitor for signs and symptoms of GI bleed 4. Discussed findings with patient and his , importance of follow-up for biopsy results Thank you for this consultation, the patient may be discharged home with follow- up with gastroenterology Dr. Rafal Vizcarra I agree with the dictator's note, documented as a scribe by Abbie Lopez.
--- NOTE | 2020-11-23 22:24 | P.DS ---
Providers Date of admission: 11/19/20 14:47 Expected date of discharge: 11/23/20 Attending physician: Sidney Fortune Consults: 11/19/20 13:53 Consult Physician Routine Consulting Provider: Chepe Villalba Reason/Comments: gi bleed Do you want consulting provider notified?: Yes Primary care physician: Jeffrey [facility] Course: Chief Complaint: Dark vomitus History of presenting complaint: This is a 85-year-old patient of Dr. Balbuena. 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 Earlier this month patient was admitted with pneumonia and sent to the [facility] for rehab. EMS was called out at home. Patient stated he was feeling funny. Does not chest pain or body aches. Patient's pulse ox on room air was 80%. About a month ago admitted to the [facility] with pneumonia and hypoxia. Patient now presents with the ER with his . Lasted patient started vomiting followed by a very dark/black vomitus. It was a large amount. Patient was discharged from [facility] 4 days ago. Appetite has not been too good. Rather weak and tired. Patient does take a baby aspirin. Patient a few years ago did have EGD by Dr. Cardona. A bit tired and rundown. No fever no chills. Some epigastric tenderness. was seen by Dr. Perdomo from GI. Aspirin was held. PPIs added. He decided to proceed conservatively. Weight and watch.patient also has significant fecal stasis. Responded well to laxative. Could bowel movement. EGD: [Dr. Rafal Vizcarra] Long segment of Harris's esophagus with small superficial ulcerations noted. Today: Laying in bed. Tolerating a diet. Patient be returning home with his . Cleared by GI. Consultation: Gastroenterology Past medical history to include: Hypertension, hyperlipidemia, BPH, moderate cognitive impairment from prior stroke, GERD, right-sided weakness from prior stroke, dysarthria, chronic medical debility using a wheelchair Social history: Has a . Patient smoked for about 35 years, cigars. Stop smoking more 24 years ago. One drink at night. Uses a wheelchair On examination: VITAL SIGNS: 98.2, 70, 18, 109/66, 91% room air GENERAL APPEARANCE: Laying in bed, eating EYES: Pupils equal. Conjunctiva pale NECK: JVD not raised. Mass not palpable. RESPIRATORY: Respiratory effort increased, decreased breath sounds CARDIOVASCULAR: First and second sounds normal. No edema. ABDOMEN: Soft. Liver and spleen not palpable. No tenderness. No mass palpable. 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 dysarthria. Right-sided weakness 3/5 INVESTIGATIONS, reviewed in the clinical context: EGD: Long segment of Harris's esophagus with small superficial ulcerations. November 21: WBC 8.4 hemoglobin 12.7 potassium 3.8 abdominal x-ray: Moderate diffuse colonic fecal stasis. November 20: WBC 7 hemoglobin 12.7 WBC 13.3 hemoglobin 14.7 platelets 215 potassium 5.2 bun 23 creatinine 0.98 Coronavirus [PCR-not detected Chest x-ray film personally reviewed by me-elevated right diaphragm. CT abdomen: Fecal impaction in the rectosigmoid region. Some patchy basilar infiltrates Assessment and plan: -Acute upper GI bleed with dark vomitus in a patient does take baby aspirin. Secondary to Harris's esophagus Stop aspirin. PPI. 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 -Fall precautions Chronic medical debility, and a baseline patient uses a wheelchair - PTOT -Significant fecal stasis Laxatives had a good response -Disposition Home with family Patient Condition at Discharge: Stable Plan - Discharge Summary New Discharge Prescriptions: Continue Multivitamins, Thera [Multivitamin (formulary)] 1 tab PO DAILY amLODIPine [Norvasc] 5 mg PO DAILY Tamsulosin [Flomax] 0.4 mg PO HS Atorvastatin [Lipitor] 10 mg PO DAILY Omeprazole 40 mg PO BID Cyanocobalamin (Vitamin B-12) [Vitamin B-12] 1,000 mcg PO DAILY Cholecalciferol (Vitamin D3) [Vitamin D3 (5000 Iu)] 125 mcg PO DAILY Acetaminophen Tab [Tylenol] 650 mg PO Q6H PRN PRN Reason: Mild Pain Or Fever > 100.5 Atropine Ophth Soln 1% 5Ml [Isopto Atropine 1% 5Ml] 1 drop SUBLINGUAL Q4H PRN PRN Reason: Secretions Discontinued Aspirin [Adult Low Dose Aspirin EC] 81 mg PO DAILY Zinc Gluconate [Zinc] 50 mg PO DAILY Discharge Medication List Multivitamins, Thera [Multivitamin (formulary)] 1 tab PO DAILY 10/16/15 [History] Atorvastatin [Lipitor] 10 mg PO DAILY 07/09/18 [History] Cyanocobalamin (Vitamin B-12) [Vitamin B-12] 1,000 mcg PO DAILY 07/09/18 [History] Omeprazole 40 mg PO BID 07/09/18 [History] Tamsulosin [Flomax] 0.4 mg PO HS 07/09/18 [History] amLODIPine [Norvasc] 5 mg PO DAILY 07/09/18 [History] Cholecalciferol (Vitamin D3) [Vitamin D3 (5000 Iu)] 125 mcg PO DAILY 10/03/20 [History] Acetaminophen Tab [Tylenol] 650 mg PO Q6H PRN 11/19/20 [History] Atropine Ophth Soln 1% 5Ml [Isopto Atropine 1% 5Ml] 1 drop SUBLINGUAL Q4H PRN 11/19/20 [History] Follow up Appointment(s)/Referral(s): Jeffrey Balbuena DO [Primary Care Provider] - 12/01/20 10:40 am Shiela Vizcarra MD [STAFF PHYSICIAN] - 2 Weeks (Please call to make a follow-up appointment) Residential Home,[facility] [NON-STAFF] - Patient Instructions/Handouts: Hematemesis (GEN) Discharge Disposition: HOME SELF-CARE
== END 2020-11-23 15:15 | disposition home or self-care (01) | DRG 381 ==
LOC: EC 10:50 → OBSVTOIN 14:47 → 3SCARD 14:47 → UNDOADMOB 14:48 → 3SCARD 14:48
PROVIDERS: ADMIT Hospitalist; ATTEND Hospitalist
PROC: 0DB38ZX Excision of Lower Esophagus, Via Natural or Artificial Opening Endoscopic, Diagnostic (ICD-10-PCS; principal; 2020-11-22 09:40)
PROC: 05HB33Z Insertion of Infusion Device into Right Basilic Vein, Percutaneous Approach (ICD-10-PCS; 2020-11-22 10:30)
DX: K22.70 Barrett's esophagus without dysplasia (principal); I69.351 Hemiplegia and hemiparesis following cerebral infarction affecting right dominant side; K21.9 Gastro-esophageal reflux disease without esophagitis; K92.0 Hematemesis; K44.9 Diaphragmatic hernia without obstruction or gangrene; E78.5 Hyperlipidemia, unspecified; F03.90 Unspecified dementia, unspecified severity, without behavioral disturbance, psychotic disturbance, mood disturbance, and anxiety; I10 Essential (primary) hypertension; N40.0 Benign prostatic hyperplasia without lower urinary tract symptoms; K56.41 Fecal impaction; R41.89 Other symptoms and signs involving cognitive functions and awareness; R53.81 Other malaise; K57.90 Diverticulosis of intestine, part unspecified, without perforation or abscess without bleeding; L30.9 Dermatitis, unspecified; N42.9 Disorder of prostate, unspecified; F41.9 Anxiety disorder, unspecified; R41.3 Other amnesia; Z87.891 Personal history of nicotine dependence; Z79.82 Long term (current) use of aspirin; Z20.822 Contact with and (suspected) exposure to COVID-19; R47.1 Dysarthria and anarthria; R09.02 Hypoxemia; Z79.899 Other long term (current) drug therapy; Z99.3 Dependence on wheelchair; Z90.89 Acquired absence of other organs; Z98.0 Intestinal bypass and anastomosis status; Z91.81 History of falling; Z87.898 Personal history of other specified conditions; Z87.01 Personal history of pneumonia (recurrent); Z88.0 Allergy status to penicillin; F10.11 Alcohol abuse, in remission; Z98.890 Other specified postprocedural states; Z82.3 Family history of stroke; Z81.8 Family history of other mental and behavioral disorders
CPT/HCPCS: 36410; 36415; 43239; 70450; 71046; 72125; 74018; 74177; 76937; 80048; 80053; 82140; 83605; 83690; 84484; 85025; 85610; 85730; 86850; 86900; 86901; 87635; 88305; 88342; 96361; 96374; 96375; 99285

== ENCOUNTER 2020-12-23 10:58 | Inpatient (IN) | payer MEDICARE, OTHER ==
[2020-12-23] MEDS ORDERED: SODIUM CHLORIDE 0.9% 1,000 ML IV ONE (11:54)
--- NOTE | 2020-12-23 12:08 | ED ---
General Adult HPI - General Chief complaint: Recheck/Abnormal Lab/Rx Stated complaint: Low Oxygen, constipation Time Seen by Provider: 12/23/20 11:00 Source: family, RN notes reviewed, old records reviewed Mode of arrival: EMS - History of Present Illness Initial comments: This is an 85-year-old male who presents emergency department with right-sided paralysis secondary to a stroke and has significant dementia. Family gives the history at this time. According to family patient hasn't had a bowel movement and 5 days and they are bringing him in because he has been constipated in the past. According to family patient is not eating much at all and only able drink a little bit of fluid in the morning. Patient has no fever. Patient has no respiratory distress. - Related Data Home Medications Medication Instructions Recorded Confirmed Atorvastatin [Lipitor] 10 mg PO DAILY 07/09/18 12/23/20 Omeprazole 40 mg PO BID 07/09/18 12/23/20 Tamsulosin [Flomax] 0.4 mg PO HS 07/09/18 12/23/20 amLODIPine [Norvasc] 5 mg PO DAILY 07/09/18 12/23/20 Cholecalciferol (Vitamin D3) 125 mcg PO DAILY 10/03/20 12/23/20 [Vitamin D3 (5000 Iu)] Atropine Ophth Soln 1% 5Ml [Isopto 1 drop SUBLINGUAL Q4H PRN 11/19/20 12/23/20 Atropine 1% 5Ml] Allergies Allergy/AdvReac Type Severity Reaction Status Date / Time Penicillins Allergy Unknown Verified 12/23/20 13:31 Childhood Review of Systems ROS Statement: Those systems with pertinent positive or pertinent negative responses have been documented in the HPI. ROS Other: All systems not noted in ROS Statement are negative. 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 - Past Family History Father History Unknown: Yes Mother Family Medical History: CVA/TIA, Dementia Additional Family Medical History / Comment(s): at age 94 or 95 General Exam - General Exam Comments Initial Comments: GENERAL: Patient is well-developed and well-nourished. Patient is nontoxic and well- hydrated and is in no acute distress. ENT: Neck is soft and supple. No significant lymphadenopathy is noted. Oropharynx is clear. Moist mucous membranes. Neck has full range of motion without eliciting any pain. EYES: The sclera were anicteric and conjunctiva were pink and moist. Extraocular movements were intact and pupils were equal round and reactive to light. Eyelids were unremarkable. PULMONARY: Unlabored respirations. Good breath sounds bilaterally. No audible rales rhonchi or wheezing was noted. CARDIOVASCULAR: There is a regular rate and rhythm without any murmurs gallops or rubs. ABDOMEN: Soft and nontender with normal bowel sounds. SKIN: Skin is clear with no lesions or rashes and otherwise unremarkable. NEUROLOGIC: Patient is alert and oriented 1 which is his baseline. Patient has significant right-sided weakness of the arm and leg MUSCULOSKELETAL: Normal extremities with adequate strength and full range of motion. LYMPHATICS: No significant lymphadenopathy is noted PSYCHIATRIC: Secondary to dementia and cannot evaluate Course Vital Signs 12/23/20 12/23/20 12/23/20 10:59 12:12 14:32 Temperature 97.4 F L Pulse Rate 66 58 L Respiratory 18 16 14 Rate Blood Pressure 118/63 120/60 O2 Sat by Pulse 91 L 98 Oximetry Medical Decision Making - Medical Decision Making EKG shows normal sinus rhythm at [address] interval is 170 QRS is 80 QT interval is 452 QTC is 455. Patient's EKG shows no ST segment elevation or depression. Chest x-ray shows patchy infiltrates bilaterally. Patient was diagnosed with pneumonia 2:30 PM. Patient was started on antibiotics. I spoke with Dr. Fortune he agreed to admit the patient to the patient wrote admitting orders. - Lab Data Result diagrams: 12/23/20 12:10 12/23/20 12:10 Lab Results 12/23/20 12/23/20 Range/Units 12:10 12:10 WBC 15.2 H (3.8-10.6) k/uL RBC 4.57 (4.30-5.90) m/uL Hgb 13.9 (13.0-17.5) gm/dL Hct 43.2 (39.0-53.0) % MCV 94.6 (80.0-100.0) fL MCH 30.4 (25.0-35.0) pg MCHC 32.1 (31.0-37.0) g/dL RDW 13.7 (11.5-15.5) % Plt Count 255 (150-450) k/uL MPV 7.7 Neutrophils % 86 % Lymphocytes % 7 % Monocytes % 3 % Eosinophils % 2 % Basophils % 1 % Neutrophils # 13.1 H (1.3-7.7) k/uL Lymphocytes # 1.1 (1.0-4.8) k/uL Monocytes # 0.5 (0-1.0) k/uL Eosinophils # 0.3 (0-0.7) k/uL Basophils # 0.1 (0-0.2) k/uL Sodium 142 (137-145) mmol/L Potassium 4.6 (3.5-5.1) mmol/L Chloride 101 (98-107) mmol/L Carbon Dioxide 32 H (22-30) mmol/L Anion Gap 9 mmol/L BUN 23 H (9-20) mg/dL Creatinine 1.19 (0.66-1.25) mg/dL Est GFR (CKD-EPI)AfAm 65 (>60 ml/min/1.73 sqM) Est GFR (CKD-EPI)NonAf 56 (>60 ml/min/1.73 sqM) Glucose 107 H (74-99) mg/dL Calcium 10.0 (8.4-10.2) mg/dL Total Bilirubin 1.0 (0.2-1.3) mg/dL AST 22 (17-59) U/L ALT 12 (4-49) U/L Alkaline Phosphatase 127 H (38-126) U/L Total Protein 7.3 (6.3-8.2) g/dL Albumin 4.2 (3.5-5.0) g/dL Disposition Clinical Impression: Pneumonia, Failure to thrive Disposition: ADMITTED IP TO THIS HOSP Referrals: Jeffrey Balbuena DO [Primary Care Provider] - 1-2 days Time of Disposition: 14:41
[2020-12-23 12:21] LABS: Basophils # (A) 0.1 k/uL (0-0.2); Basophils % (A) 1 %; Eosinophils # (A) 0.3 k/uL (0-0.7); Eosinophils % (A) 2 %; HCT 43.2 % (39.0-53.0); HGB 13.9 gm/dL (13.0-17.5); Lymphocytes # (A) 1.1 k/uL (1.0-4.8); Lymphocytes % (A) 7 %; MCH 30.4 pg (25.0-35.0); MCHC 32.1 g/dL (31.0-37.0); MCV 94.6 fL (80.0-100.0); Mean Platelet Volume 7.7; Monocytes # (A) 0.5 k/uL (0-1.0); Monocytes % (A) 3 %; Neutrophils # (A) 13.1 k/uL (1.3-7.7); Neutrophils % (A) 86 %; Platelet Count 255 k/uL (150-450); RBC 4.57 m/uL (4.30-5.90); RDW 13.7 % (11.5-15.5); WBC 15.2 k/uL (3.8-10.6)
--- NOTE | 2020-12-23 12:23 | XR ---
EXAMINATION TYPE: XR KUB DATE OF EXAM: 12/23/2020 12:17 PM CLINICAL HISTORY: Constipation TECHNIQUE: Single supine KUB image of the abdomen is obtained. COMPARISON: None. FINDINGS: Scattered gas is seen in non-distended small bowel loops. Gas and fecal material is seen in non-distended colon. Moderate fecal load. There is no visceromegaly, pneumoperitoneum, or abnormal c alcification appreciated. Marked degenerative changes are seen in the bones. IMPRESSION: Overall nonobstructive bowel gas pattern.
[2020-12-23 12:33] LABS: Albumin 4.2 g/dL (3.5-5.0); Potassium 4.6 mmol/L (3.5-5.1); Total Protein 7.3 g/dL (6.3-8.2)
--- NOTE | 2020-12-23 14:09 | XR ---
EXAMINATION TYPE: XR chest 2V DATE OF EXAM: 12/23/2020 COMPARISON: 11/19/2020 HISTORY: Difficulty breathing TECHNIQUE: Frontal and lateral views of the chest are obtained. FINDINGS: Patchy airspace disease bilaterally has worsened since the prior exam. Cardiac silhouette is unchanged in size. IMPRESSION: Patchy airspace disease bilaterally has worsened since the prior exam.
[2020-12-23] MEDS ORDERED: AZITHROMYCIN 500 MG in SODIUM CHLORIDE 0.9% 250 ML IVPB STA (14:41)
[2020-12-23] MEDS ORDERED: PNEUMONIA PROTOCOL UTILIZED 1 EACH MISC PO PRN (14:41)
[2020-12-23 16:13] LABS: Appearance,Urine Clear (Clear); Bilirubin,Urine 1+ (Negative); Blood,Urine Trace (Negative); Color,Urine Yellow; Glucose,Urine (UA) Negative (Negative); Hyaline Casts,Urine 1 /lpf (0-2); Ketones,Urine Negative (Negative); Leukocyte Esterase,Urine Negative (Negative); Mucus,Urine Rare /hpf; Nitrite,Urine Negative (Negative); PH, Urine 6.5 (5.0-8.0); Protein,Urine 1+ (Negative); RBC,Urine 24 /hpf (0-5); Specific Gravity,Urine 1.033 (1.001-1.035); WBC,Urine 2 /hpf (0-5)
[2020-12-23] MEDS ORDERED: ATROPINE OPHTH SOLN 1% 5ML BTL SUBLINGUAL PRN (17:35)
[2020-12-23] MEDS: ENOXAPARIN 40 MG/0.4 ML SYRINGE SQ SCH (17:51)
--- NOTE | 2020-12-23 17:56 | P.HPIM ---
History of Present Illness H&P Date: 12/23/20 Chief Complaint: Nausea vomiting History of presenting complaint: This is a 85-year-old patient of Dr. Balbuena. 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 Patient is able to hold hold the railing and come downstairs. Patient was in the hospital about a month ago and was found to have long segment of Harris's esophagus with small superficial ulcerations. Patient was now brought in as 2 nights ago patient threw up several times at least about 4 times. Patient is also had decreased appetite before that. Also has not had any bowel movement for last 7-10 days. Appetite is gone on. No fever no chills. Denies any respiratory symptoms. Review of systems: GEN.: Tired EYES: None HEENT: None NECK: None RESPIRATORY: None] CARDIOVASCULAR: None GASTROINTESTINAL: As above GENITOURINARY: None MUSCULOSKELETAL: Joint pains LYMPHATICS: None HEMATOLOGICAL: None PSYCHIATRY: Forgetfulness NEUROLOGICAL: Right-sided weakness, dysarthria. Past medical history to include: Hypertension, hyperlipidemia, BPH, moderate cognitive impairment from prior stroke, GERD, right-sided weakness from prior stroke, dysarthria, chronic medical debility using a wheelchair, Harris's esophagus Social history: . Patient smoked for about 35 years, cigars. Stop smoking more 24 years ago. One drink at night. Uses a wheelchair On examination: VITAL SIGNS: 97.4, 66, 18, 118/63, 91% room air GENERAL APPEARANCE: reclining in bed, awake, tired EYES: Pupils equal. Conjunctiva normal. NECK: JVD not raised. Mass not palpable. RESPIRATORY: Respiratory effort increased, decreased breath sounds CARDIOVASCULAR: First and second sounds normal. No edema. ABDOMEN: Soft. Liver and spleen not palpable. No tenderness. No mass palpable. PSYCHIATRY: Answering simple questions MUSCULAR skeletal: Evidence of OA - joints LYMPH : No lymph nodes palpable in neck and axilla NEUROLOGICAL: . Slight dysarthria. Right-sided weakness 3/5 INVESTIGATIONS, reviewed in the clinical context: WBC 15.2 hemoglobin 13.9 platelets 255 potassium 4.6 creatinine 1.19 UA-unremarkable KUB: Nonobstructive bowel pattern EKG tracing personally reviewed by me-sinus rhythm Chest x-ray film personally reviewed by me-infiltrates Assessment and plan: -Bilateral pneumonia, suspect gram-negative organism/could be aspiration from vomiting IV cefepime - Harris's esophagus with superficial ulcerations PPI Essential hypertension -Continue with amlodipine Hyperlipidemia -Continue with Lipitor -BPH Continue with Flomax -Moderate cognitive impairment from prior stroke -GERD PPI -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 Add Metamucil -Acute and chronic medical debility Patient is able to walk down the stairs holding the rail Otherwise using a wheelchair. PTOT Start patient on IV cefepime. Molasses enema. Had Metamucil. Home medications resumed. PTOT. Consult social worker delinquency prevention for ECF/rehab. 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, uses wheelchair, has memory problems, hx falls, HIATAL HERNIA, BARRETTS ESOPHAGUS, eczema, History of Any Multi-Drug Resistant Organisms: None Reported Past Surgical History: Adenoidectomy, Tonsillectomy Additional Past Surgical History / Comment(s): rt carotid endarterrectomy, brain surgery for aneurysm, feeding tube/later removed, Past Anesthesia/Blood Transfusion Reactions: No Reported Reaction Past Psychological History: Anxiety Smoking Status: Former smoker Past Alcohol Use History: Daily Additional Past Alcohol Use History / Comment(s): quit smoking about 24 yrs ago, smoked for about 35 yrs- cigars, 1 drink nightly Past Drug Use History: None Reported - Past Family History Father History Unknown: Yes Mother Family Medical History: CVA/TIA, Dementia Additional Family Medical History / Comment(s): at age 94 or 95 Medications and Allergies Home Medications Medication Instructions Recorded Confirmed Type Atorvastatin [Lipitor] 10 mg PO DAILY 07/09/18 12/23/20 History Omeprazole 40 mg PO BID 07/09/18 12/23/20 History Tamsulosin [Flomax] 0.4 mg PO HS 07/09/18 12/23/20 History amLODIPine [Norvasc] 5 mg PO DAILY 07/09/18 12/23/20 History Cholecalciferol (Vitamin D3) 125 mcg PO DAILY 10/03/20 12/23/20 History [Vitamin D3 (5000 Iu)] Atropine Ophth Soln 1% 5Ml [Isopto 1 drop SUBLINGUAL Q4H PRN 11/19/20 12/23/20 History Atropine 1% 5Ml] Allergies Allergy/AdvReac Type Severity Reaction Status Date / Time Penicillins Allergy Unknown Verified 12/23/20 13:31 Childhood Physical Exam Vitals: Vital Signs Temp Pulse Pulse Resp BP BP Pulse Ox 12/23/20 17:24 97.5 F L 59 L 18 140/64 97 12/23/20 17:00 98.2 F 60 18 117/70 98 12/23/20 14:32 58 L 14 120/60 98 12/23/20 12:12 16 12/23/20 10:59 97.4 F L 66 18 118/63 91 L Intake and Output 12/23/20 12/23/20 12/23/20 06:59 14:59 22:59 Intake Total 50 Balance 50 Intake: IV 50 cefTRIAXone 2 gm In 50 Sodium Chloride 0.9% 50 ml @ 100 mls/hr IVPB ONCE STA Rx#:[id number] Other: Weight 68.039 kg 68.039 kg Results CBC & Chem 7: 12/23/20 12:10 12/23/20 12:10 Labs: Abnormal Lab Results - Last 24 Hours (Table) 12/23/20 12/23/20 12/23/20 Range/Units 12:10 12:10 15:47 WBC 15.2 H (3.8-10.6) k/uL Neutrophils # 13.1 H (1.3-7.7) k/uL Carbon Dioxide 32 H (22-30) mmol/L BUN 23 H (9-20) mg/dL Glucose 107 H (74-99) mg/dL Alkaline Phosphatase 127 H (38-126) U/L Urine Protein 1+ H (Negative) Urine Blood Trace H (Negative) Urine Bilirubin 1+ H (Negative) Urine RBC 24 H (0-5) /hpf Urine Mucus Rare H (None) /hpf Thrombosis Risk Factor Assmnt - Choose All That Apply Each Risk Factor Represents 3 Points: Age 75 years or older Thrombosis Risk Factor Assessment Total Risk Factor Score: 3 Thrombosis Risk Factor Assessment Level: Moderate Risk
[2020-12-23] MEDS: CEFEPIME 2 GM in SODIUM CHLORIDE 0.9% 100 ML IVPB SCH (21:24)
[2020-12-23] MEDS: PSYLLIUM HUSK 100% 6 GM PACKET PO SCH (21:25)
[2020-12-23] MEDS: TAMSULOSIN 0.4 MG CAP.ER.24H PO SCH (21:25)
[2020-12-24] MEDS: amLODIPine 5 MG TAB PO SCH (08:43)
[2020-12-24] MEDS: CHOLECALCIFEROL 25 MCG (1000 IU) TABLET PO SCH (08:43)
[2020-12-24] MEDS: ATORVASTATIN 10 MG TAB PO SCH (08:43)
[2020-12-24] MEDS: CEFEPIME 2 GM in SODIUM CHLORIDE 0.9% 100 ML IVPB SCH ×2 (08:43→20:49)
[2020-12-24] MEDS: PSYLLIUM HUSK 100% 6 GM PACKET PO SCH ×2 (08:43→20:49)
[2020-12-24] MEDS: PANTOPRAZOLE 40 MG TABLET PO SCH ×2 (08:43→17:26)
[2020-12-24] MEDS: ENOXAPARIN 40 MG/0.4 ML SYRINGE SQ SCH (08:44)
[2020-12-24] MEDS ORDERED: AZITHROMYCIN 500 MG TAB PO SCH (09:00)
--- NOTE | 2020-12-24 09:13 | XR ---
EXAMINATION TYPE: XR chest 2V DATE OF EXAM: 12/24/2020 COMPARISON: Chest x-ray 12/23/2020 HISTORY: Pneumonia TECHNIQUE: Frontal and lateral views of the chest are obtained. FINDINGS: There is no pleural effusion or pneumothorax seen. The cardiac silhouette size is within normal limits. The osseous structures are stable, wedge compression deformity noted within the lowe r thoracic spine. Aorta is dense and aneurysmal. Patient is rotated, patchy retrocardiac density is p resent. Cardiac mediastinal silhouette is stable. Patchy density present in the right upper lobe. Rig ht apical pleural thickening is noted. IMPRESSION: Correlate for pneumonia versus atelectasis. Aortic aneurysm.
--- NOTE | 2020-12-24 14:11 | P.PN ---
Progress Note - Text Progress Note Date: 12/24/20 Chief Complaint: Nausea vomiting History of presenting complaint: This is a 85-year-old patient of Dr. Balbuena. 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 Patient is able to hold hold the railing and come downstairs. Patient was in the hospital about a month ago and was found to have long segment of Harris's esophagus with small superficial ulcerations. Patient was now brought in as 2 nights ago patient threw up several times at least about 4 times. Patient is also had decreased appetite before that. Also has not had any bowel movement for last 7-10 days. Appetite is gone on. No fever no chills. Denies any respiratory symptoms. Admitted with aspiration pneumonia, possibly flareup of Harris's esophagitis. Patient had a very good response to the molasses enema. Today: Sitting up in a recliner. Had a fairly decent breakfast. Tired. Did have a good bowel movement, with the enema Review of systems: Was done for constitutional, cardiovascular, GI, pulmonary. relevant finding as above Active Medications Amlodipine Besylate (Amlodipine 5 Mg Tab) 5 mg PO DAILY [facility] Last Admin: 12/24/20 08:43 Dose: 5 mg Documented by: Atorvastatin Calcium (Atorvastatin 10 Mg Tab) 10 mg PO DAILY [facility] Last Admin: 12/24/20 08:43 Dose: 10 mg Documented by: Atropine Sulfate (Atropine Ophth Soln 1% 5ml Btl) 1 drops SUBLINGUAL Q4H PRN PRN Reason: Secretions Cholecalciferol (Cholecalciferol 25 Mcg (1000 Iu) Tablet) 125 mcg PO DAILY [facility] Last Admin: 12/24/20 08:43 Dose: 125 mcg Documented by: Enoxaparin Sodium (Enoxaparin 40 Mg/0.4 Ml Syringe) 40 mg SQ DAILY [facility] Last Admin: 12/24/20 08:44 Dose: 40 mg Documented by: Cefepime HCl 2 gm/ Sodium (Chloride) 100 mls @ 25 mls/hr IVPB Q12HR [facility] Last Admin: 12/24/20 08:43 Dose: 25 mls/hr Documented by: Miscellaneous Information (Pneumonia Protocol Utilized 1 Each Misc) 1 each PO ONCE PRN PRN Reason: Per Protocol Pantoprazole Sodium (Pantoprazole 40 Mg Tablet) 40 mg PO BID@0730,1730 [facility] Last Admin: 12/24/20 08:43 Dose: 40 mg Documented by: Psyllium Hydrophilic Mucilloid (Psyllium Husk 100% 6 Gm Packet) 6 gm PO BID [facility] Last Admin: 12/24/20 08:43 Dose: 6 gm Documented by: Tamsulosin HCl (Tamsulosin 0.4 Mg Cap.Er.24h) 0.4 mg PO [facility] Last Admin: 12/23/20 21:25 Dose: 0.4 mg Documented by: Past medical history to include: Hypertension, hyperlipidemia, BPH, moderate cognitive impairment from prior stroke, GERD, right-sided weakness from prior stroke, dysarthria, chronic medical debility using a wheelchair, Harris's esophagus Social history: . Patient smoked for about 35 years, cigars. Stop smoking more 24 years ago. One drink at night. Uses a wheelchair On examination: VITAL SIGNS: 97.4, 54, 17, 115 x 53, 97% on 3 L GENERAL APPEARANCE: In the recliner awake, tired EYES: Pupils equal. Conjunctiva normal. NECK: JVD not raised. Mass not palpable. RESPIRATORY: Respiratory effort increased, decreased breath sounds CARDIOVASCULAR: First and second sounds normal. No edema. ABDOMEN: Soft. Liver and spleen not palpable. No tenderness. No mass palpable. PSYCHIATRY: Answering simple questions MUSCULAR skeletal: Evidence of OA - joints NEUROLOGICAL: . Slight dysarthria. Right-sided weakness 3/5 INVESTIGATIONS, reviewed in the clinical context: WBC 15.2 hemoglobin 13.9 platelets 255 potassium 4.6 creatinine 1.19 UA-unremarkable KUB: Nonobstructive bowel pattern EKG tracing personally reviewed by me-sinus rhythm Chest x-ray film personally reviewed by me-infiltrates Assessment and plan: -Bilateral pneumonia, suspect gram-negative organism/could be aspiration from vomiting IV cefepime - Harris's esophagus with superficial ulcerations PPI Essential hypertension -Continue with amlodipine Hyperlipidemia -Continue with Lipitor -BPH Continue with Flomax -Moderate cognitive impairment from prior stroke -GERD PPI -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 PTOT Continue with IV cefepime. Started to eat better. dockworker looking into ECF. Other medications to continue.
[2020-12-24 14:19] VITALS: BMI 22.1
[2020-12-24] MEDS: TAMSULOSIN 0.4 MG CAP.ER.24H PO SCH (20:49)
[2020-12-25 07:00] LABS: Basophils # (A) 0.1 k/uL (0-0.2); Basophils % (A) 1 %; Eosinophils # (A) 0.4 k/uL (0-0.7); Eosinophils % (A) 5 %; HCT 38.2 % (39.0-53.0); HGB 12.7 gm/dL (13.0-17.5); Lymphocytes # (A) 0.7 k/uL (1.0-4.8); Lymphocytes % (A) 10 %; MCH 31.5 pg (25.0-35.0); MCHC 33.3 g/dL (31.0-37.0); MCV 94.4 fL (80.0-100.0); Mean Platelet Volume 8.5; Monocytes # (A) 0.3 k/uL (0-1.0); Monocytes % (A) 5 %; Neutrophils # (A) 5.3 k/uL (1.3-7.7); Neutrophils % (A) 78 %; Platelet Count 196 k/uL (150-450); RBC 4.05 m/uL (4.30-5.90); RDW 13.3 % (11.5-15.5); WBC 6.9 k/uL (3.8-10.6)
[2020-12-25 07:05] LABS: African American GFR (CKD) >90 (>60 ml/min/1.73 sqM); Anion Gap 4 mmol/L; Blood Urea Nitrogen 18 mg/dL (9-20); Calcium 9.2 mg/dL (8.4-10.2); Carbon Dioxide 31 mmol/L (22-30); Chloride 103 mmol/L (98-107); Glucose 82 mg/dL (74-99); Non-African American GFR(CKD) 86 (>60 ml/min/1.73 sqM); Potassium 3.9 mmol/L (3.5-5.1); Sodium 138 mmol/L (137-145)
[2020-12-25] MEDS: PSYLLIUM HUSK 100% 6 GM PACKET PO SCH ×2 (09:03→20:32)
[2020-12-25] MEDS: CHOLECALCIFEROL 25 MCG (1000 IU) TABLET PO SCH (09:03)
[2020-12-25] MEDS: ATORVASTATIN 10 MG TAB PO SCH (09:03)
[2020-12-25] MEDS: ENOXAPARIN 40 MG/0.4 ML SYRINGE SQ SCH (09:03)
[2020-12-25] MEDS: PANTOPRAZOLE 40 MG TABLET PO SCH ×2 (09:03→17:53)
[2020-12-25] MEDS: amLODIPine 5 MG TAB PO SCH (09:03)
[2020-12-25] MEDS: CEFEPIME 2 GM in SODIUM CHLORIDE 0.9% 100 ML IVPB SCH ×3 (11:04→22:04)
[2020-12-25] MEDS: TAMSULOSIN 0.4 MG CAP.ER.24H PO SCH (20:32)
--- NOTE | 2020-12-25 20:42 | P.PN ---
Progress Note - Text Progress Note Date: 12/25/20 Chief Complaint: Nausea vomiting History of presenting complaint: This is a 85-year-old patient of Dr. Balbuena. 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 Patient is able to hold hold the railing and come downstairs. Patient was in the hospital about a month ago and was found to have long segment of Harris's esophagus with small superficial ulcerations. Patient was now brought in as 2 nights ago patient threw up several times at least about 4 times. Patient is also had decreased appetite before that. Also has not had any bowel movement for last 7-10 days. Appetite is gone on. No fever no chills. Denies any respiratory symptoms. Admitted with aspiration pneumonia, possibly flareup of Harris's esophagitis. Patient had a very good response to the molasses enema. Today: Oral intake is improved. No further nausea vomiting. at the bedside. Patient feeling better. On IV antibiotics Review of systems: Was done for constitutional, cardiovascular, GI, pulmonary. relevant finding as above Active Medications Amlodipine Besylate (Amlodipine 5 Mg Tab) 5 mg PO DAILY [facility] Last Admin: 12/25/20 09:03 Dose: 5 mg Documented by: Atorvastatin Calcium (Atorvastatin 10 Mg Tab) 10 mg PO DAILY [facility] Last Admin: 12/25/20 09:03 Dose: 10 mg Documented by: Atropine Sulfate (Atropine Ophth Soln 1% 5ml Btl) 1 drops SUBLINGUAL Q4H PRN PRN Reason: Secretions Cholecalciferol (Cholecalciferol 25 Mcg (1000 Iu) Tablet) 125 mcg PO DAILY [facility] Last Admin: 12/25/20 09:03 Dose: 125 mcg Documented by: Enoxaparin Sodium (Enoxaparin 40 Mg/0.4 Ml Syringe) 40 mg SQ DAILY [facility] Last Admin: 12/25/20 09:03 Dose: 40 mg Documented by: Cefepime HCl 2 gm/ Sodium (Chloride) 100 mls @ 25 mls/hr IVPB Q12HR [facility] Last Admin: 12/25/20 11:04 Dose: Not Given Documented by: Miscellaneous Information (Pneumonia Protocol Utilized 1 Each Misc) 1 each PO ONCE PRN PRN Reason: Per Protocol Pantoprazole Sodium (Pantoprazole 40 Mg Tablet) 40 mg PO BID@0730,1730 [facility] Last Admin: 12/25/20 17:53 Dose: 40 mg Documented by: Psyllium Hydrophilic Mucilloid (Psyllium Husk 100% 6 Gm Packet) 6 gm PO BID [facility] Last Admin: 12/25/20 20:32 Dose: 6 gm Documented by: Tamsulosin HCl (Tamsulosin 0.4 Mg Cap.Er.24h) 0.4 mg PO HS [facility] Last Admin: 12/25/20 20:32 Dose: 0.4 mg Documented by: Past medical history to include: Hypertension, hyperlipidemia, BPH, moderate cognitive impairment from prior stroke, GERD, right-sided weakness from prior stroke, dysarthria, chronic medical debility using a wheelchair, Harris's esophagus Social history: . Patient smoked for about 35 years, cigars. Stop smoking more 24 years ago. One drink at night. Uses a wheelchair On examination: VITAL SIGNS: 97.8, 59, 17, 1 24 x 55, 98% on 3 L GENERAL APPEARANCE: Reclining in bed, eating EYES: Pupils equal. Conjunctiva normal. NECK: JVD not raised. Mass not palpable. RESPIRATORY: Respiratory effort increased, decreased breath sounds CARDIOVASCULAR: First and second sounds normal. No edema. ABDOMEN: Soft. Liver and spleen not palpable. No tenderness. No mass palpable. PSYCHIATRY: Answering simple questions MUSCULAR skeletal: Evidence of OA - joints NEUROLOGICAL: . dysarthria. Right-sided weakness 3/5 INVESTIGATIONS, reviewed in the clinical context: December 25: WBC 6.9 hemoglobin 12.7 potassium 3.9 pro-calcitonin 0.13 WBC 15.2 hemoglobin 13.9 platelets 255 potassium 4.6 creatinine 1.19 UA-unremarkable KUB: Nonobstructive bowel pattern EKG tracing personally reviewed by me-sinus rhythm Chest x-ray film personally reviewed by me-infiltrates Assessment and plan: -Bilateral pneumonia, suspect gram-negative organism/could be aspiration from vomiting-improving IV cefepime - Harris's esophagus with superficial ulcerations PPI Essential hypertension -Continue with amlodipine Hyperlipidemia -Continue with Lipitor -BPH Continue with Flomax -Moderate cognitive impairment from prior stroke -GERD PPI -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 PTOT Continue with IV cefepime. Oral intake is improving. Awaiting patient to be discharged to the ECF at the rehab
[2020-12-26 02:41] VITALS: RESP 16
[2020-12-26] MEDS: amLODIPine 5 MG TAB PO SCH (07:49)
[2020-12-26] MEDS: ATORVASTATIN 10 MG TAB PO SCH (07:49)
[2020-12-26] MEDS: PANTOPRAZOLE 40 MG TABLET PO SCH ×2 (07:49→16:45)
[2020-12-26] MEDS: CHOLECALCIFEROL 25 MCG (1000 IU) TABLET PO SCH (07:49)
[2020-12-26] MEDS: ENOXAPARIN 40 MG/0.4 ML SYRINGE SQ SCH (07:50)
[2020-12-26] MEDS: CEFEPIME 2 GM in SODIUM CHLORIDE 0.9% 100 ML IVPB SCH ×2 (07:50→20:10)
[2020-12-26] MEDS: PSYLLIUM HUSK 100% 6 GM PACKET PO SCH ×2 (07:50→20:09)
--- NOTE | 2020-12-26 14:13 | P.PN ---
Progress Note - Text Progress Note Date: 12/26/20 Chief Complaint: Nausea vomiting History of presenting complaint: This is a 85-year-old patient of Dr. Balbuena. 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 Patient is able to hold hold the railing and come downstairs. Patient was in the hospital about a month ago and was found to have long segment of Harris's esophagus with small superficial ulcerations. Patient was now brought in as 2 nights ago patient threw up several times at least about 4 times. Patient is also had decreased appetite before that. Also has not had any bowel movement for last 7-10 days. Appetite is gone on. No fever no chills. Denies any respiratory symptoms. Admitted with aspiration pneumonia, possibly flareup of Harris's esophagitis. Patient had a very good response to the molasses enema. Today: Tolerating diet. Breathing better. Awaiting to go to rehab. On IV cefepime. Review of systems: Was done for constitutional, cardiovascular, GI, pulmonary. relevant finding as above Active Medications Amlodipine Besylate (Amlodipine 5 Mg Tab) 5 mg PO DAILY [facility] Last Admin: 12/26/20 07:49 Dose: 5 mg Documented by: Atorvastatin Calcium (Atorvastatin 10 Mg Tab) 10 mg PO DAILY [facility] Last Admin: 12/26/20 07:49 Dose: 10 mg Documented by: Atropine Sulfate (Atropine Ophth Soln 1% 5ml Btl) 1 drops SUBLINGUAL Q4H PRN PRN Reason: Secretions Cholecalciferol (Cholecalciferol 25 Mcg (1000 Iu) Tablet) 125 mcg PO DAILY [facility] Last Admin: 12/26/20 07:49 Dose: 125 mcg Documented by: Enoxaparin Sodium (Enoxaparin 40 Mg/0.4 Ml Syringe) 40 mg SQ DAILY [facility] Last Admin: 12/26/20 07:50 Dose: 40 mg Documented by: Cefepime HCl 2 gm/ Sodium (Chloride) 100 mls @ 25 mls/hr IVPB Q12HR [facility] Last Admin: 12/26/20 07:50 Dose: 25 mls/hr Documented by: Miscellaneous Information (Pneumonia Protocol Utilized [facility]) 1 each PO ONCE PRN PRN Reason: Per Protocol Pantoprazole Sodium (Pantoprazole 40 Mg Tablet) 40 mg PO BID@0730,1730 [facility] Last Admin: 12/26/20 07:49 Dose: 40 mg Documented by: Psyllium Hydrophilic Mucilloid (Psyllium Husk 100% 6 Gm Packet) 6 gm PO BID [facility] Last Admin: 12/26/20 07:50 Dose: 6 gm Documented by: Tamsulosin HCl (Tamsulosin 0.4 Mg Cap.Er.24h) 0.4 mg PO HS [facility] Last Admin: 12/25/20 20:32 Dose: 0.4 mg Documented by: Past medical history to include: Hypertension, hyperlipidemia, BPH, moderate cognitive impairment from prior stroke, GERD, right-sided weakness from prior stroke, dysarthria, chronic medical debility using a wheelchair, Harris's esophagus Social history: . Patient smoked for about 35 years, cigars. Stop smoking more 24 years ago. One drink at night. Uses a wheelchair On examination: VITAL SIGNS: 97.9, 60, 16, 162/75, 92% room air GENERAL APPEARANCE: Reclining in bed, comfortable EYES: Pupils equal. Conjunctiva normal. NECK: JVD not raised. Mass not palpable. RESPIRATORY: Respiratory effort increased, decreased breath sounds CARDIOVASCULAR: First and second sounds normal. No edema. ABDOMEN: Soft. Liver and spleen not palpable. No tenderness. No mass palpable. PSYCHIATRY: Answering simple questions MUSCULAR skeletal: Evidence of OA - joints NEUROLOGICAL: . dysarthria. Right-sided weakness 3/5 INVESTIGATIONS, reviewed in the clinical context: December 26: Pro-calcitonin 0.10 December 25: WBC 6.9 hemoglobin 12.7 potassium 3.9 pro-calcitonin 0.13 WBC 15.2 hemoglobin 13.9 platelets 255 potassium 4.6 creatinine 1.19 UA-unremarkable KUB: Nonobstructive bowel pattern EKG tracing personally reviewed by me-sinus rhythm Chest x-ray film personally reviewed by me-infiltrates Assessment and plan: -Bilateral pneumonia, suspect gram-negative organism/could be aspiration from vomiting-improving IV cefepime. 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 PTOT Continue IV cefepime. Changed to Ceftin 500 mg twice daily to complete course. Should be able to go to rehab tomorrow.
[2020-12-26] MEDS: TAMSULOSIN 0.4 MG CAP.ER.24H PO SCH (20:09)
[2020-12-27] MEDS: CHOLECALCIFEROL 25 MCG (1000 IU) TABLET PO SCH (08:45)
[2020-12-27] MEDS: amLODIPine 5 MG TAB PO SCH (08:46)
[2020-12-27] MEDS: ENOXAPARIN 40 MG/0.4 ML SYRINGE SQ SCH (08:46)
[2020-12-27] MEDS: ATORVASTATIN 10 MG TAB PO SCH (08:46)
[2020-12-27] MEDS: CEFEPIME 2 GM in SODIUM CHLORIDE 0.9% 100 ML IVPB SCH (08:47)
[2020-12-27] MEDS: PANTOPRAZOLE 40 MG TABLET PO SCH (08:47)
[2020-12-27] MEDS: PSYLLIUM HUSK 100% 6 GM PACKET PO SCH (08:47)
[2020-12-27 15:12] VITALS: BP 109/57; PULSE 88; TEMP 97.5
--- NOTE | 2020-12-27 15:27 | P.DS ---
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 Patient will follow-up with Dr. Balbuena in the outpatient setting upon discharge. Patient will continue on oral Levaquin 500 mg daily for the next 5 days and then may discontinue. Total time taken is greater than 35 minutes. Hospital course This is a 85-year-old male who was recently admitted with aspiration pneumonia with possible flare up of Harris's esophagus and was being closely monitored. Patient was on IV antibiotics and will continue with oral antibiotics for the next 5 days to complete the course and then may discontinue. Patient should continue with dysphasia to ground diet with one-to-one supervision and strict aspiration precautions with head of the bed elevated 45 degrees at all times and assistance with meals. Patient is high risk for aspiration. She continues to be very unsteady and weak. To continue with Metamucil as prescribed and continue to encourage meals. Currently no reports of chest pain, shortness of breath, or palpitations. Patient is afebrile. No reports of nausea or vomiting and patient is tolerating diet. Patient will be going to [facility] today. On exam vital signs are stable. Cardio S1, S2 are muffled. Respiratory system shows diminished breath sounds at the bases with no wheezing or rhonchi noted. Abdomen is soft and nontender. Nervous system shows diffuse weakness. Please refer to medication reconciliation sheet for a list of medications. Patient Condition at Discharge: Fair Plan - Discharge Summary Discharge Rx Participant: No New Discharge Prescriptions: New Psyllium Husk 100% [Metamucil Packet] 6 gm PO BID 30 Days #60 packet Levofloxacin [Levaquin] 500 mg PO DAILY 5 Days #5 tab Continue amLODIPine [Norvasc] 5 mg PO DAILY Tamsulosin [Flomax] 0.4 mg PO HS Atorvastatin [Lipitor] 10 mg PO DAILY Omeprazole 40 mg PO BID Cholecalciferol (Vitamin D3) [Vitamin D3 (5000 Iu)] 125 mcg PO DAILY Atropine Ophth Soln 1% 5Ml [Isopto Atropine 1% 5Ml] 1 drop SUBLINGUAL Q4H PRN PRN Reason: Secretions Discharge Medication List Atorvastatin [Lipitor] 10 mg PO DAILY 07/09/18 [History] Omeprazole 40 mg PO BID 07/09/18 [History] Tamsulosin [Flomax] 0.4 mg PO HS 07/09/18 [History] amLODIPine [Norvasc] 5 mg PO DAILY 07/09/18 [History] Cholecalciferol (Vitamin D3) [Vitamin D3 (5000 Iu)] 125 mcg PO DAILY 10/03/20 [History] Atropine Ophth Soln 1% 5Ml [Isopto Atropine 1% 5Ml] 1 drop SUBLINGUAL Q4H PRN 11/19/20 [History] Levofloxacin [Levaquin] 500 mg PO DAILY 5 Days #5 tab 12/27/20 [Rx] Psyllium Husk 100% [Metamucil Packet] 6 gm PO BID 30 Days #60 packet 12/27/20 [Rx] Follow up Appointment(s)/Referral(s): Jeffrey Balbuena DO [Primary Care Provider] - 1-2 days Activity/Diet/Wound Care/Special Instructions: *Patient is discharging to [facility] at discharge. RN to call [phone] at discharge to give report. Call [facility] [phone] to arrange ambulance transport (form is on the chart) Patient is going to [facility] Activity as tolerated Continue with dysphagia 2, ground diet and strict aspiration precautions of one-to-one supervision with meals, assistance with meals, head of the bed elevated 30-45 at all times Follow-up with primary care provider upon discharge Continue with antibiotics for 5 days and then may discontinue Continue with Metamucil as prescribed Discharge Disposition: TRANSFER TO SNF/ECF
== END 2020-12-27 16:56 | DRG 178 ==
LOC: EC 10:58 → 4SSUR 14:41
PROVIDERS: ADMIT Hospitalist; ATTEND Hospitalist
DX: J69.0 Pneumonitis due to inhalation of food and vomit (principal); I69.351 Hemiplegia and hemiparesis following cerebral infarction affecting right dominant side; Z87.891 Personal history of nicotine dependence; Z79.899 Other long term (current) drug therapy; R62.7 Adult failure to thrive; Z20.822 Contact with and (suspected) exposure to COVID-19; K44.9 Diaphragmatic hernia without obstruction or gangrene; E78.5 Hyperlipidemia, unspecified; F03.90 Unspecified dementia, unspecified severity, without behavioral disturbance, psychotic disturbance, mood disturbance, and anxiety; F41.9 Anxiety disorder, unspecified; I10 Essential (primary) hypertension; K21.9 Gastro-esophageal reflux disease without esophagitis; K22.70 Barrett's esophagus without dysplasia; K59.00 Constipation, unspecified; N40.0 Benign prostatic hyperplasia without lower urinary tract symptoms; Z99.3 Dependence on wheelchair; R53.81 Other malaise; L30.9 Dermatitis, unspecified; I69.322 Dysarthria following cerebral infarction
CPT/HCPCS: 36415; 71046; 74018; 80048; 80053; 81001; 84145; 85025; 87040; 87635; 93005; 94760; 96360; 99285

== ENCOUNTER 2021-05-11 18:11 | Inpatient (IN) | payer MEDICARE, OTHER ==
[2021-05-11] MEDS ORDERED: SODIUM CHLORIDE 0.9% 500 ML 500 ML IV ONE (18:42)
[2021-05-11] MEDS ORDERED: ACETAMINOPHEN TAB 500 MG TAB PO STA (18:42)
--- NOTE | 2021-05-11 18:52 | ED ---
General Adult HPI - General Chief complaint: Neuro Symptoms/Deficit Stated complaint: RULE OUT CVA Time Seen by Provider: 05/11/21 18:16 Source: patient, family, EMS, RN notes reviewed, old records reviewed Mode of arrival: EMS Limitations: no limitations - History of Present Illness Initial comments: 85-year-old male -[facility], increased weakness. Patient has remote history of hemorrhagic stroke. He does have residual left facial droop and right-sided weakness. Staff had noted that the patient may have had an increased facial droop over the past 24 hours. They also noted that he was febrile with temperature of 101. Patient denies any complaints himself. He is accompanied by his who states that he was in his usual state of health yesterday. No cough. No dysuria. He does have history of aspiration pneumonia in the past. - Related Data Home Medications Medication Instructions Recorded Confirmed Atorvastatin [Lipitor] 10 mg PO HS@199907/09/18 05/11/21 Tamsulosin [Flomax] 0.4 mg PO HS@199907/09/18 05/11/21 amLODIPine [Norvasc] 5 mg PO DAILY@0800 07/09/18 05/11/21 Cholecalciferol (Vitamin D3) 125 mcg PO DAILY@0800 10/03/20 05/11/21 [Vitamin D3 (5000 Iu)] Atropine Ophth Soln 1% 5Ml [Isopto 1 drop SUBLINGUAL Q4H PRN 11/19/20 05/11/21 Atropine 1% 5Ml] Ketoconazole 2% Shampoo [Nizoral] 1 applic TOPICAL TUSA@0805/11/21 05/11/21 Psyllium Husk 100% [Metamucil 6 gm PO BID@05/11/21 05/11/21 Packet] Allergies Allergy/AdvReac Type Severity Reaction Status Date / Time Penicillins Allergy Unknown Verified 05/11/21 20:19 Childhood Review of Systems ROS Statement: Those systems with pertinent positive or pertinent negative responses have been documented in the HPI. ROS Other: All systems not noted in ROS Statement are negative. 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 - Past Family History Father History Unknown: Yes Mother Family Medical History: CVA/TIA, Dementia Additional Family Medical History / Comment(s): at age 94 or 95 General Exam Limitations: no limitations General appearance: alert, in no apparent distress Head exam: Present: atraumatic, normocephalic Eye exam: Present: normal appearance, PERRL Neck exam: Present: normal inspection. Absent: tenderness, meningismus Respiratory exam: Present: normal lung sounds bilaterally. Absent: respiratory distress, wheezes Cardiovascular Exam: Present: regular rate, normal rhythm GI/Abdominal exam: Present: soft. Absent: distended, tenderness, guarding Extremities exam: Present: normal inspection, normal capillary refill Neurological exam: Present: alert, oriented X3, other (Visual right-sided weakness, contractures right upper extremity, minimal left-sided facial droop. states this is baseline.) Psychiatric exam: Present: normal affect, normal mood Skin exam: Present: warm, dry, intact Course Vital Signs 05/11/21 05/11/21 05/11/21 18:28 18:55 20:55 Temperature 100.4 F H 102.0 F H 99.4 F Pulse Rate 73 73 Respiratory 18 24 Rate Blood Pressure 175/61 O2 Sat by Pulse 89 L 91 L Oximetry EKG Findings - EKG Comments: EKG Findings:: EKG: Normal sinus rhythm, left axis deviation, rate of 73, CA interval 156, QRS duration 74, QTC 409, no ST segment elevation, there is some tremor artifact. Medical Decision Making - Medical Decision Making 85 yo male presents for evaluation of fever, increased weakness. Remote history of hemorrhagic stroke. Workup is initiated, chest x-ray showing concern for developing right lower lobe infiltrate and the patient has had aspiration pneumonia in the past. CT of the brain is negative for any acute findings, shows encephalomalacia from previous stroke. He has leukocytosis of 16.4. He is requiring some supplemental oxygen. He will be admitted for IV antibiotics, started on cefepime and azithromycin in the emergency department. Case discussed with Dr. Fortune who will admit. - Lab Data Result diagrams: 05/11/21 19:25 05/11/21 19:25 Lab Results 05/11/21 05/11/21 05/11/21 Range/Units 19:25 19:25 19:25 WBC 16.4 H (3.8-10.6) k/uL RBC 4.87 (4.30-5.90) m/uL Hgb 15.3 (13.0-17.5) gm/dL Hct 45.8 (39.0-53.0) % MCV 94.0 (80.0-100.0) fL MCH 31.4 (25.0-35.0) pg MCHC 33.4 (31.0-37.0) g/dL RDW 13.7 (11.5-15.5) % Plt Count 205 (150-450) k/uL MPV 8.0 Neutrophils % 90 % Lymphocytes % 4 % Monocytes % 4 % Eosinophils % 1 % Basophils % 0 % Neutrophils # 14.8 H (1.3-7.7) k/uL Lymphocytes # 0.7 L (1.0-4.8) k/uL Monocytes # 0.6 (0-1.0) k/uL Eosinophils # 0.2 (0-0.7) k/uL Basophils # 0.1 (0-0.2) k/uL Sodium 140 (137-145) mmol/L Potassium 4.9 (3.5-5.1) mmol/L Chloride 104 (98-107) mmol/L Carbon Dioxide 27 (22-30) mmol/L Anion Gap 9 mmol/L BUN 22 H (9-20) mg/dL Creatinine 0.99 (0.66-1.25) mg/dL Est GFR (CKD-EPI)AfAm 81 (>60 ml/min/1.73 sqM) Est GFR (CKD-EPI)NonAf 70 (>60 ml/min/1.73 sqM) Glucose 117 H (74-99) mg/dL Plasma Lactic Acid Chago (0.7-2.0) mmol/L Calcium 9.5 (8.4-10.2) mg/dL Total Bilirubin 0.8 (0.2-1.3) mg/dL AST 31 (17-59) U/L ALT 19 (4-49) U/L Alkaline Phosphatase 95 (38-126) U/L Total Protein 7.3 (6.3-8.2) g/dL Albumin 4.0 (3.5-5.0) g/dL Coronavirus (PCR) Not Detected (Not Detectd) 05/11/21 Range/Units 19:25 WBC (3.8-10.6) k/uL RBC (4.30-5.90) m/uL Hgb (13.0-17.5) gm/dL Hct (39.0-53.0) % MCV (80.0-100.0) fL MCH (25.0-35.0) pg MCHC (31.0-37.0) g/dL RDW (11.5-15.5) % Plt Count (150-450) k/uL MPV Neutrophils % % Lymphocytes % % Monocytes % % Eosinophils % % Basophils % % Neutrophils # (1.3-7.7) k/uL Lymphocytes # (1.0-4.8) k/uL Monocytes # (0-1.0) k/uL Eosinophils # (0-0.7) k/uL Basophils # (0-0.2) k/uL Sodium (137-145) mmol/L Potassium (3.5-5.1) mmol/L Chloride (98-107) mmol/L Carbon Dioxide (22-30) mmol/L Anion Gap mmol/L BUN (9-20) mg/dL Creatinine (0.66-1.25) mg/dL Est GFR (CKD-EPI)AfAm (>60 ml/min/1.73 sqM) Est GFR (CKD-EPI)NonAf (>60 ml/min/1.73 sqM) Glucose (74-99) mg/dL Plasma Lactic Acid Chago 0.9 (0.7-2.0) mmol/L Calcium (8.4-10.2) mg/dL Total Bilirubin (0.2-1.3) mg/dL AST (17-59) U/L ALT (4-49) U/L Alkaline Phosphatase (38-126) U/L Total Protein (6.3-8.2) g/dL Albumin (3.5-5.0) g/dL Coronavirus (PCR) (Not Detectd) Disposition Clinical Impression: History of stroke, Dehydration, Pneumonia Disposition: ADMITTED IP TO THIS HOSP Condition: Stable Is patient prescribed a controlled substance at d/c from ED?: No Referrals: Jeffrey Balbuena DO [Primary Care Provider] - 1-2 days Decision to Admit Reason: Admit from EC Decision Date: 05/11/21 Decision Time: 21:32
[2021-05-11 19:35] LABS: Basophils # (A) 0.1 k/uL (0-0.2); Basophils % (A) 0 %; Eosinophils # (A) 0.2 k/uL (0-0.7); Eosinophils % (A) 1 %; HCT 45.8 % (39.0-53.0); HGB 15.3 gm/dL (13.0-17.5); Lymphocytes # (A) 0.7 k/uL (1.0-4.8); Lymphocytes % (A) 4 %; MCH 31.4 pg (25.0-35.0); MCHC 33.4 g/dL (31.0-37.0); Monocytes # (A) 0.6 k/uL (0-1.0); Monocytes % (A) 4 %; Neutrophils # (A) 14.8 k/uL (1.3-7.7); Neutrophils % (A) 90 %; Platelet Count 205 k/uL (150-450); RBC 4.87 m/uL (4.30-5.90); RDW 13.7 % (11.5-15.5); WBC 16.4 k/uL (3.8-10.6)
[2021-05-11 19:56] LABS: Calcium 9.5 mg/dL (8.4-10.2); Potassium 4.9 mmol/L (3.5-5.1); Total Bilirubin 0.8 mg/dL (0.2-1.3); Total Protein 7.3 g/dL (6.3-8.2)
--- NOTE | 2021-05-11 20:14 | XR ---
EXAMINATION TYPE: XR chest 1V portable DATE OF EXAM: 05/11/2021 COMPARISON: 12/24/2020 HISTORY: Fever and altered mental status TECHNIQUE: Single view FINDINGS: There is elevated right diaphragm. There is coarse interstitial density in the lungs. There are chest leads. Thoracic aorta is atheromatous. Bony thorax is intact. IMPRESSION: There is some mild atelectasis at the right lung base. Normal heart. No heart failure. Ri ght diaphragm elevation increased compared to old exam.
[2021-05-11] MEDS ORDERED: AZITHROMYCIN 500 MG in SODIUM CHLORIDE 0.9% 250 ML IVPB STA (20:34)
[2021-05-11] MEDS ORDERED: CEFEPIME 2 GM in SODIUM CHLORIDE 0.9% 100 ML IVPB STA (20:34)
--- NOTE | 2021-05-11 20:37 | CT ---
EXAMINATION TYPE: CT brain wo con DATE OF EXAM: 05/11/2021 COMPARISON: 11/19/2020 HISTORY: Weakness CT DLP: 1051.4 mGycm Automated exposure control for dose reduction was used. There is cerebral cortical atrophy. 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 There is no mass effect nor midline shift. There is no evidence of intracranial hemorrhage. There is old left temporal craniotomy defect. There is surgic al clip at the left side of the [place]. IMPRESSION: Old large left hemisphere infarct. No change compared to old exam. No acute abnormality.
[2021-05-11] MEDS ORDERED: ACETAMINOPHEN TAB 325 MG TAB PO PRN (21:30)
[2021-05-11] MEDS ORDERED: NALOXONE 0.4 MG/ML 1 ML VIAL IV PRN (21:30)
[2021-05-11] MEDS: SODIUM CHLORIDE 0.9% 1,000 ML IV SCH (21:51)
[2021-05-12] MEDS: CEFEPIME 2 GM in SODIUM CHLORIDE 0.9% 100 ML IVPB SCH ×3 (05:56→17:19)
[2021-05-12] MEDS: SODIUM CHLORIDE 0.9% 1,000 ML IV SCH ×2 (05:58→17:17)
[2021-05-12] MEDS ORDERED: ATROPINE OPHTH SOLN 1% 5ML BTL SUBLINGUAL PRN (10:38)
[2021-05-12] MEDS: amLODIPine 5 MG TAB PO SCH (10:58)
[2021-05-12] MEDS ORDERED: LACTULOSE 20 GM/30 ML CUP PO PRN (15:43)
[2021-05-12] MEDS ORDERED: MAGNESIUM HYDROXIDE 2,400 MG/10 ML CUP PO PRN (15:43)
[2021-05-12] MEDS ORDERED: CALCIUM CARBONATE 500 MG CHEWABLE PO PRN (15:43)
[2021-05-12] MEDS ORDERED: MAG HYDROX/AL HYDROX/SIMETH 30 ML CUP PO PRN (15:43)
[2021-05-12] MEDS ORDERED: ONDANSETRON 4 MG/2 ML VIAL IVP PRN (15:43)
--- NOTE | 2021-05-12 15:43 | P.HPIM ---
History of Present Illness H&P Date: 05/12/21 Chief Complaint: Weak History of presenting complaint: 85-year-old patient of Dr. Balbuena. 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 Patient is able to walk some. Resident of [facility]/assisted living Staff called EMS as patient was weaker than normal. He had a temperature 101.3. No obvious cough. Tired. No focal weakness. Denies any urinary symptoms. Some constipation. Patient is able to walk some. He did eat some breakfast today. With assistance. Review of systems: GEN.: Tired, fever EYES: None HEENT: None NECK: None RESPIRATORY: None] CARDIOVASCULAR: None GASTROINTESTINAL: Not show any other last bowel movement GENITOURINARY: None MUSCULOSKELETAL: Joint pains LYMPHATICS: None HEMATOLOGICAL: None PSYCHIATRY: Forgetfulness NEUROLOGICAL: Right-sided weakness, especially the right arm, dysarthria. Past medical history to include: Hypertension, hyperlipidemia, BPH, moderate cognitive impairment from prior stroke, GERD, right-sided weakness from prior stroke, dysarthria, chronic medical debility using a wheelchair, Harris's esophagus Social history: . smoked for about 35 years, cigars. Stop smoking about 24 years ago. One drink at night. Uses a wheelchair and also able to walk slowly On examination: VITAL SIGNS: 102, 73, 18, 107/58, 89% on room air upon presentation GENERAL APPEARANCE: BMI 21.2, laying in bed, awake, tired EYES: Pupils equal. Conjunctiva normal. NECK: JVD not raised. Mass not palpable. RESPIRATORY: Respiratory effort increased, decreased breath sounds CARDIOVASCULAR: First and second sounds normal. No edema. ABDOMEN: Soft. Liver and spleen not palpable. No tenderness. No mass palpable. PSYCHIATRY: Answering simple questions MUSCULAR skeletal: Evidence of OA - joints LYMPH : No lymph nodes palpable in neck and axilla NEUROLOGICAL: . Slight dysarthria. Right arm weakness with hand contracture. Mild right leg weakness. INVESTIGATIONS, reviewed in the clinical context: WBC 16.4 hemoglobin 15.3 sodium 140 potassium 4.9. 22 creatinine 0.99 Coronavirus [PCR]: Not detected EKG tracing personally reviewed by me-normal sinus rhythm, rate 73 Chest x-ray film personally reviewed by me-right sided infiltrate. Elevated right diaphragm. Assessment and plan: -Right basal pneumonia, suspected gram-negative organism. IV cefepime 2 g every 12.. Check pro-calcitonin. - Harris's esophagus with superficial ulcerations PPI -Essential hypertension 5 mg daily amlodipine Hyperlipidemia -10 mg Lipitor -BPH 0.4 mg daily at bedtime Flomax -Moderate cognitive impairment from prior stroke -GERD PPI -Right-sided paresis [right arm more than right leg] from a prior stroke and ch ronic dysarthria Fall precautions - chronic medical debility Patient baseline is able to walk some. Also uses a wheelchair. IV cefepime. Resume home medications. Check procalcitonin the morning. Cutback IV fluids. Discussed with patient. 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 Smoking Status: Former smoker Past Alcohol Use History: Daily Additional Past Alcohol Use History / Comment(s): quit smoking about 24 yrs ago, smoked for about 35 yrs- cigars, 1 drink nightly Past Drug Use History: None Reported - Past Family History Father History Unknown: Yes Mother Family Medical History: CVA/TIA, Dementia Additional Family Medical History / Comment(s): at age 94 or 95 Medications and Allergies Home Medications Medication Instructions Recorded Confirmed Type Atorvastatin [Lipitor] 10 mg PO HS@199907/09/18 05/11/21 History Tamsulosin [Flomax] 0.4 mg PO HS@199907/09/18 05/11/21 History amLODIPine [Norvasc] 5 mg PO DAILY@0800 07/09/18 05/11/21 History Cholecalciferol (Vitamin D3) 125 mcg PO DAILY@0800 10/03/20 05/11/21 History [Vitamin D3 (5000 Iu)] Atropine Ophth Soln 1% 5Ml [Isopto 1 drop SUBLINGUAL Q4H PRN 11/19/20 05/11/21 History Atropine 1% 5Ml] Ketoconazole 2% Shampoo [Nizoral] 1 applic TOPICAL TUSA@0800 05/11/21 05/11/21 History Psyllium Husk 100% [Metamucil 6 gm PO BID@08,199905/11/21 05/11/21 History Packet] Allergies Allergy/AdvReac Type Severity Reaction Status Date / Time Penicillins Allergy Unknown Verified 05/11/21 20:19 Childhood Physical Exam Vitals: Vital Signs Temp Pulse Pulse Resp BP BP Pulse Ox 05/12/21 08:28 17 05/12/21 06:59 98.6 F 57 L 17 124/57 96 05/12/21 02:35 98.1 F 58 L 18 126/44 94 L 05/12/21 00:00 16 05/11/21 23:30 98.4 F 66 16 99/59 93 L 05/11/21 22:20 68 22 107/58 93 L 05/11/21 20:55 99.4 F 73 24 91 L 05/11/21 18:55 102.0 F H 05/11/21 18:28 100.4 F H 73 18 175/61 89 L Intake and Output 05/11/21 05/12/21 05/12/21 22:59 06:59 14:59 Other: Voiding Method Urinal Urinal # Voids 1 Weight 67.041 kg 67.041 kg Results CBC & Chem 7: 05/11/21 19:25 05/11/21 19:25 Labs: Abnormal Lab Results - Last 24 Hours (Table) 05/11/21 05/11/21 Range/Units 19:25 19:25 WBC 16.4 H (3.8-10.6) k/uL Neutrophils # 14.8 H (1.3-7.7) k/uL Lymphocytes # 0.7 L (1.0-4.8) k/uL BUN 22 H (9-20) mg/dL Glucose 117 H (74-99) mg/dL Thrombosis Risk Factor Assmnt - Choose All That Apply Each Factor Represents 1 point: Medical pt on bed rest Each Risk Factor Represents 3 Points: Age 75 years or older Thrombosis Risk Factor Assessment Total Risk Factor Score: 4 Thrombosis Risk Factor Assessment Level: Moderate Risk
[2021-05-12 17:18] LABS: Appearance,Urine Clear (Clear); Bilirubin,Urine Negative (Negative); Blood,Urine Negative (Negative); Color,Urine Yellow; Glucose,Urine (UA) Negative (Negative); Ketones,Urine Negative (Negative); Leukocyte Esterase,Urine Negative (Negative); Nitrite,Urine Negative (Negative); Protein,Urine Trace (Negative); Specific Gravity,Urine 1.026 (1.001-1.035); Urobilinogen,Urine <2.0 mg/dL (<2.0)
[2021-05-12] MEDS: TAMSULOSIN 0.4 MG CAP.ER.24H PO SCH (20:48)
[2021-05-12] MEDS: PSYLLIUM HUSK 100% 6 GM PACKET PO SCH (20:48)
[2021-05-12] MEDS: ATORVASTATIN 10 MG TAB PO SCH (20:48)
[2021-05-12] MEDS: ALPRAZolam 0.25 MG TAB PO PRN (20:49)
[2021-05-12] MEDS: MELATONIN 3 MG TABLET PO PRN (20:50)
[2021-05-13] MEDS: SODIUM CHLORIDE 0.9% 1,000 ML IV SCH ×2 (00:37→10:39)
[2021-05-13] MEDS: CEFEPIME 2 GM in SODIUM CHLORIDE 0.9% 100 ML IVPB SCH ×2 (05:04→17:27)
[2021-05-13] MEDS: CHOLECALCIFEROL 25 MCG (1000 IU) TABLET PO SCH (08:15)
[2021-05-13] MEDS: amLODIPine 5 MG TAB PO SCH (08:15)
[2021-05-13] MEDS: PSYLLIUM HUSK 100% 6 GM PACKET PO SCH ×2 (08:15→22:23)
[2021-05-13 08:39] LABS: Basophils % (A) 0 %; Eosinophils # (A) 0.7 k/uL (0-0.7); Eosinophils % (A) 6 %; HGB 13.4 gm/dL (13.0-17.5); Lymphocytes # (A) 0.9 k/uL (1.0-4.8); Lymphocytes % (A) 8 %; MCH 32.5 pg (25.0-35.0); MCHC 32.7 g/dL (31.0-37.0); Mean Platelet Volume 8.9; Monocytes # (A) 0.6 k/uL (0-1.0); Monocytes % (A) 5 %; Neutrophils # (A) 8.5 k/uL (1.3-7.7); Neutrophils % (A) 78 %; Platelet Count 163 k/uL (150-450); RBC 4.13 m/uL (4.30-5.90); RDW 13.5 % (11.5-15.5); WBC 10.9 k/uL (3.8-10.6)
[2021-05-13 08:40] LABS: MCV 99.3 fL (80.0-100.0)
[2021-05-13] MEDS: ALPRAZolam 0.25 MG TAB PO PRN ×2 (11:42→19:23)
--- NOTE | 2021-05-13 14:04 | P.PN ---
Progress Note - Text Progress Note Date: 05/13/21 Chief Complaint: Weak History of presenting complaint: 85-year-old patient of Dr. Balbuena. 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 Patient is able to walk some. Resident of [facility]/assisted living Staff called EMS as patient was weaker than normal. He had a temperature 101.3. No obvious cough. Tired. No focal weakness. Denies any urinary symptoms. Some constipation. Patient is able to walk some. He did eat some breakfast today. With assistance. Admitted with pneumonia. He started and IV cefepime. May 13: Feeling better. Decreased cough. Eating about 50%. Less tired. Review of systems: Was done for constitutional, cardiovascular, GI, pulmonary. relevant finding as above Active Medications Acetaminophen (Acetaminophen Tab 325 Mg Tab) 650 mg PO Q6HR PRN PRN Reason: Mild Pain or Fever > 100.5 Al Hydroxide/Mg Hydroxide (Mag Hydrox/Al Hydrox/Simeth 30 Ml Cup) 15 ml PO Q6HR PRN PRN Reason: Indigestion Alprazolam (Alprazolam 0.25 Mg Tab) 0.25 mg PO Q6HR PRN PRN Reason: Anxiety Last Admin: 05/13/21 11:42 Dose: 0.25 mg Documented by: Amlodipine Besylate (Amlodipine 5 Mg Tab) 5 mg PO DAILY@0800 [facility] Last Admin: 05/13/21 08:15 Dose: 5 mg Documented by: Atorvastatin Calcium (Atorvastatin 10 Mg Tab) 10 mg PO HS@2000 [facility] Last Admin: 05/12/21 20:48 Dose: 10 mg Documented by: Atropine Sulfate (Atropine Ophth Soln 1% 5ml Btl) 1 drops SUBLINGUAL Q4H PRN PRN Reason: Secretions Calcium Carbonate/Glycine (Calcium Carbonate 500 Mg Chewable) 1,000 mg PO Q4HR PRN PRN Reason: Dyspepsia Cholecalciferol (Cholecalciferol 25 Mcg (1000 Iu) Tablet) 125 mcg PO DAILY@0800 [facility] Last Admin: 05/13/21 08:15 Dose: 125 mcg Documented by: Sodium Chloride (Saline 0.9%) 1,000 mls @ 75 mls/hr IV .[id number] [facility] Last Admin: 05/13/21 10:39 Dose: 75 mls/hr Documented by: Cefepime HCl 2 gm/ Sodium (Chloride) 100 mls @ 25 mls/hr IVPB Q12H [facility] Last Admin: 05/13/21 05:04 Dose: 25 mls/hr Documented by: Ketoconazole (Ketoconazole 2% Shampoo 1 Applic/Ml) 1 applic TOPICAL TUSA@0800 [facility] Lactulose (Lactulose 20 Gm/30 Ml Cup) 20 gm PO DAILY PRN PRN Reason: Constipation Magnesium Hydroxide (Magnesium Hydroxide 2,400 Mg/10 Ml Cup) 2,400 mg PO DAILY PRN PRN Reason: Constipation Melatonin (Melatonin 3 Mg Tablet) 3 mg PO HS PRN PRN Reason: Insomnia Last Admin: 05/12/21 20:50 Dose: 3 mg Documented by: Naloxone HCl (Naloxone 0.4 Mg/Ml 1 Ml Vial) 0.2 mg IV Q2M PRN PRN Reason: Opioid Reversal Ondansetron HCl (Ondansetron 4 Mg/2 Ml Vial) 4 mg IVP Q8HR PRN PRN Reason: Nausea And Vomiting Psyllium Hydrophilic Mucilloid (Psyllium Husk 100% 6 Gm Packet) 6 gm PO BID@ [facility] Last Admin: 05/13/21 08:15 Dose: 6 gm Documented by: Tamsulosin HCl (Tamsulosin 0.4 Mg Cap.Er.24h) 0.4 mg PO HS@1999 [facility] Last Admin: 05/12/21 20:48 Dose: 0.4 mg Documented by: Past medical history to include: Hypertension, hyperlipidemia, BPH, moderate cognitive impairment from prior stroke, GERD, right-sided weakness from prior stroke, dysarthria, chronic medical debility using a wheelchair, Harris's esophagus Social history: . smoked for about 35 years, cigars. Stop smoking about 24 years ago. One drink at night. Uses a wheelchair and also able to walk slowly On examination: VITAL SIGNS: 97.4, 60, 19, 1 24 x 58, 95% on 3 L GENERAL APPEARANCE: , laying in bed, awake, less tired EYES: Pupils equal. Conjunctiva normal. NECK: JVD not raised. Mass not palpable. RESPIRATORY: Respiratory effort increased, decreased breath sounds CARDIOVASCULAR: First and second sounds normal. No edema. ABDOMEN: Soft. Liver and spleen not palpable. No tenderness. No mass palpable. PSYCHIATRY: Answering simple questions MUSCULAR skeletal: Evidence of OA - joints NEUROLOGICAL: . Slight dysarthria. Right arm weakness with hand contracture. Mild right leg weakness. INVESTIGATIONS, reviewed in the clinical context: May 13: White count 10.9 hemoglobin 13.4 pro-calcitonin 0.61 WBC 16.4 hemoglobin 15.3 sodium 140 potassium 4.9. 22 creatinine 0.99 Coronavirus [PCR]: Not detected EKG tracing personally reviewed by me-normal sinus rhythm, rate 73 Chest x-ray film personally reviewed by me-right sided infiltrate. Elevated right diaphragm. Assessment and plan: -Right basal pneumonia, suspected gram-negative organism: Improving. IV cefepime 2 g every 12.. 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 Also uses a wheelchair. IV cefepime. Encourage oral intake. Hopefully discharge in 24 hours.
[2021-05-13] MEDS: MELATONIN 3 MG TABLET PO PRN (19:23)
[2021-05-13] MEDS: TAMSULOSIN 0.4 MG CAP.ER.24H PO SCH (22:23)
[2021-05-13] MEDS: ATORVASTATIN 10 MG TAB PO SCH (22:23)
[2021-05-14] MEDS: SODIUM CHLORIDE 0.9% 1,000 ML IV SCH ×2 (03:46→20:08)
[2021-05-14] MEDS: CEFEPIME 2 GM in SODIUM CHLORIDE 0.9% 100 ML IVPB SCH ×2 (05:23→17:09)
[2021-05-14] MEDS ORDERED: KETOCONAZOLE 2% SHAMPOO 1 APPLIC/ML TOPICAL SCH (08:00)
[2021-05-14] MEDS: CHOLECALCIFEROL 25 MCG (1000 IU) TABLET PO SCH (09:40)
[2021-05-14] MEDS: amLODIPine 5 MG TAB PO SCH (09:40)
[2021-05-14] MEDS: PSYLLIUM HUSK 100% 6 GM PACKET PO SCH ×2 (09:41→20:08)
--- NOTE | 2021-05-14 15:33 | XR ---
EXAMINATION TYPE: XR chest 2V DATE OF EXAM: 05/14/2021 COMPARISON: 05/11/2021 HISTORY: Difficulty breathing TECHNIQUE: Frontal and lateral views of the chest are obtained. FINDINGS: There is moderate chronic elevation right hemidiaphragm. There is been interval developmen t of a small right pleural effusion. There are diffuse increased interstitial markings tic on the rig ht however this wasn't seen on multiple prior studies and appears to reflect some chronic interstitia l change. Graft the left lung is clear. There is no pneumothorax. Heart size is normal. The osseous s tructures are intact IMPRESSION: Interval development of small right pleural effusion. Increased interstitial markings on the right appear to be chronic in nature as is the moderate elevation the right hemidiaphragm.
--- NOTE | 2021-05-14 17:50 | P.PN ---
Progress Note - Text Progress Note Date: 05/14/21 Chief Complaint: Weak History of presenting complaint: 85-year-old patient of Dr. Balbuena. 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 Patient is able to walk some. Resident of [facility]/assisted living Staff called EMS as patient was weaker than normal. He had a temperature 101.3. No obvious cough. Tired. No focal weakness. Denies any urinary symptoms. Some constipation. Patient is able to walk some. He did eat some breakfast today. With assistance. Admitted with pneumonia. He started and IV cefepime. May 13: Feeling better. Decreased cough. Eating about 50%. Less tired. May 14: Oral intake good. Decreased cough. Nurse called me later that the patient pulse ox had dropped down to 77%. Chest x-ray ordered. Review of systems: Was done for constitutional, cardiovascular, GI, pulmonary. relevant finding as above Active Medications Acetaminophen (Acetaminophen Tab 325 Mg Tab) 650 mg PO Q6HR PRN PRN Reason: Mild Pain or Fever > 100.5 Al Hydroxide/Mg Hydroxide (Mag Hydrox/Al Hydrox/Simeth 30 Ml Cup) 15 ml PO Q6HR PRN PRN Reason: Indigestion Alprazolam (Alprazolam 0.25 Mg Tab) 0.25 mg PO Q6HR PRN PRN Reason: Anxiety Last Admin: 05/13/21 19:23 Dose: 0.25 mg Documented by: Amlodipine Besylate (Amlodipine 5 Mg Tab) 5 mg PO DAILY@0800 [facility] Last Admin: 05/14/21 09:40 Dose: 5 mg Documented by: Atorvastatin Calcium (Atorvastatin 10 Mg Tab) 10 mg PO HS@2000 [facility] Last Admin: 05/13/21 22:23 Dose: 10 mg Documented by: Atropine Sulfate (Atropine Ophth Soln 1% 5ml Btl) 1 drops SUBLINGUAL Q4H PRN PRN Reason: Secretions Calcium Carbonate/Glycine (Calcium Carbonate 500 Mg Chewable) 1,000 mg PO Q4HR PRN PRN Reason: Dyspepsia Cholecalciferol (Cholecalciferol 25 Mcg (1000 Iu) Tablet) 125 mcg PO DAILY@0800 [facility] Last Admin: 05/14/21 09:40 Dose: 125 mcg Documented by: Sodium Chloride (Saline 0.9%) 1,000 mls @ 75 mls/hr IV .[id number] [facility] Last Admin: 05/14/21 03:46 Dose: 75 mls/hr Documented by: Cefepime HCl 2 gm/ Sodium (Chloride) 100 mls @ 25 mls/hr IVPB Q12H [facility] Last Admin: 05/14/21 17:09 Dose: 25 mls/hr Documented by: Ketoconazole (Ketoconazole 2% Shampoo 1 Applic/Ml) 1 applic TOPICAL TUSA@0800 [facility] Last Admin: 05/14/21 09:42 Dose: Not Given Documented by: Lactulose (Lactulose 20 Gm/30 Ml Cup) 20 gm PO DAILY PRN PRN Reason: Constipation Magnesium Hydroxide (Magnesium Hydroxide 2,400 Mg/10 Ml Cup) 2,400 mg PO DAILY PRN PRN Reason: Constipation Melatonin (Melatonin 3 Mg Tablet) 3 mg PO HS PRN PRN Reason: Insomnia Last Admin: 05/13/21 19:23 Dose: 3 mg Documented by: Naloxone HCl (Naloxone 0.4 Mg/Ml 1 Ml Vial) 0.2 mg IV Q2M PRN PRN Reason: Opioid Reversal Ondansetron HCl (Ondansetron 4 Mg/2 Ml Vial) 4 mg IVP Q8HR PRN PRN Reason: Nausea And Vomiting Psyllium Hydrophilic Mucilloid (Psyllium Husk 100% 6 Gm Packet) 6 gm PO BID@799,1999 [facility] Last Admin: 05/14/21 09:41 Dose: 6 gm Documented by: Tamsulosin HCl (Tamsulosin 0.4 Mg Cap.Er.24h) 0.4 mg PO HS@1999 [facility] Last Admin: 05/13/21 22:23 Dose: 0.4 mg Documented by: Past medical history to include: Hypertension, hyperlipidemia, BPH, moderate cognitive impairment from prior stroke, GERD, right-sided weakness from prior stroke, dysarthria, chronic medical debility using a wheelchair, Harris's esophagus Social history: . smoked for about 35 years, cigars. Stop smoking about 24 years ago. One drink at night. Uses a wheelchair and also able to walk slowly On examination: VITAL SIGNS: 97.4, 57, 18, 122/57, 96% on 3 L GENERAL APPEARANCE: , Reclining in bed, awake, eating lunch EYES: Pupils equal. Conjunctiva normal. NECK: JVD not raised. Mass not palpable. RESPIRATORY: Respiratory effort increased, decreased breath sounds CARDIOVASCULAR: First and second sounds normal. No edema. ABDOMEN: Soft. Liver and spleen not palpable. No tenderness. No mass palpable. PSYCHIATRY: Answering simple questions MUSCULAR skeletal: Evidence of OA - joints NEUROLOGICAL: . Slight dysarthria. Right arm weakness with hand contracture. Mild right leg weakness. INVESTIGATIONS, reviewed in the clinical context: May 13: White count 10.9 hemoglobin 13.4 pro-calcitonin 0.61 WBC 16.4 hemoglobin 15.3 sodium 140 potassium 4.9. 22 creatinine 0.99 Coronavirus [PCR]: Not detected EKG tracing personally reviewed by me-normal sinus rhythm, rate 73 Chest x-ray film personally reviewed by me-right sided infiltrate. Elevated right diaphragm. Assessment and plan: -Right basal pneumonia, suspected gram-negative organism: Today nurse noted the pulse ox had dropped down. Repeat chest x-ray ordered. To rule out aspiration IV cefepime 2 g every 12.. 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 Also uses a wheelchair. IV cefepime. All feeding with assistance. Aspiration precautions. Chest x- ray ordered. Repeat CBC.
[2021-05-14] MEDS: TAMSULOSIN 0.4 MG CAP.ER.24H PO SCH (20:08)
[2021-05-14] MEDS: ATORVASTATIN 10 MG TAB PO SCH (20:08)
[2021-05-15] MEDS: CEFEPIME 2 GM in SODIUM CHLORIDE 0.9% 100 ML IVPB SCH (05:15)
[2021-05-15] MEDS: SODIUM CHLORIDE 0.9% 1,000 ML IV SCH (05:16)
[2021-05-15] MEDS: PSYLLIUM HUSK 100% 6 GM PACKET PO SCH (08:39)
[2021-05-15] MEDS: amLODIPine 5 MG TAB PO SCH (08:39)
[2021-05-15] MEDS: CHOLECALCIFEROL 25 MCG (1000 IU) TABLET PO SCH (08:45)
[2021-05-15 11:57] LABS: Basophils % (A) 0 %; Eosinophils # (A) 0.4 k/uL (0-0.7); Eosinophils % (A) 6 %; HCT 43.4 % (39.0-53.0); HGB 14.2 gm/dL (13.0-17.5); Lymphocytes # (A) 0.7 k/uL (1.0-4.8); Lymphocytes % (A) 11 %; MCHC 32.7 g/dL (31.0-37.0); MCV 94.7 fL (80.0-100.0); Mean Platelet Volume 8.7; Monocytes # (A) 0.5 k/uL (0-1.0); Monocytes % (A) 7 %; Neutrophils % (A) 73 %; Platelet Count 190 k/uL (150-450); RBC 4.58 m/uL (4.30-5.90); RDW 13.4 % (11.5-15.5); WBC 6.8 k/uL (3.8-10.6)
[2021-05-15 13:23] VITALS: BP 128/70; PULSE 62; RESP 20; TEMP 97.4
--- NOTE | 2021-05-15 15:40 | P.DS ---
Providers Date of admission: 05/11/21 21:30 Expected date of discharge: 05/15/21 Attending physician: Sidney Fortune Primary care physician: Jeffrey Balbuena [facility] Course: Chief Complaint: Weak History of presenting complaint: 85-year-old patient of Dr. Balbuena. 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 Patient is able to walk some. Resident of [facility]/assisted living Staff called EMS as patient was weaker than normal. He had a temperature 101.3. No obvious cough. Tired. No focal weakness. Denies any urinary symptoms. Some constipation. Patient is able to walk some. He did eat some breakfast today. With assistance. Admitted with pneumonia. He started and IV cefepime. Hypoxia. Placed on oxygen. Started to improve. Appetite improved. Today: Doing well. Eating well. Breathing stable. Pulse ox 95% on room air. Discharge. Spoke to nurse. Spoke to patient. Discussion and discharge planning more than 35 minutes Past medical history to include: Hypertension, hyperlipidemia, BPH, moderate cognitive impairment from prior stroke, GERD, right-sided weakness from prior stroke, dysarthria, chronic medical debility using a wheelchair, Harris's esophagus Social history: . smoked for about 35 years, cigars. Stop smoking about 24 years ago. One drink at night. Uses a wheelchair and also able to walk slowly On examination: VITAL SIGNS: 97.4, 62, 20, 128/70, 95% room air GENERAL APPEARANCE: Sitting on bed, eating EYES: Pupils equal. Conjunctiva normal. NECK: JVD not raised. Mass not palpable. RESPIRATORY: Respiratory effort normal, decreased breath sounds CARDIOVASCULAR: First and second sounds normal. No edema. ABDOMEN: Soft. Liver and spleen not palpable. No tenderness. No mass palpable. PSYCHIATRY: Answering simple questions MUSCULAR skeletal: Evidence of OA - joints NEUROLOGICAL: . Slight dysarthria. Right arm weakness with hand contracture. Mild right leg weakness. INVESTIGATIONS, reviewed in the clinical context: May 15: WBC 6.8 hemoglobin 14.2 pro-calcitonin 0.61 WBC 16.4 hemoglobin 15.3 sodium 140 potassium 4.9. 22 creatinine 0.99 Coronavirus [PCR]: Not detected EKG tracing personally reviewed by me-normal sinus rhythm, rate 73 Chest x-ray film personally reviewed by me-right sided infiltrate. Elevated right diaphragm. Assessment and plan: -Right basal pneumonia, suspected gram-negative organism: Today nurse noted the pulse ox had dropped down. Repeat chest x-ray ordered. To rule out aspiration IV cefepime 2 g every 12.. Discharge on Ceftin 5 mg twice a day 6 tablets -Acute hypoxic respiratory failure from pneumonia: Corrected Today pulse ox 95% on room air - Harris's esophagus with superficial ulcerations PPI -Essential hypertension 5 mg daily amlodipine Hyperlipidemia -10 mg Lipitor -BPH 0.4 mg daily at bedtime Flomax -Moderate cognitive impairment from prior stroke -GERD PPI -Right-sided paresis [right arm more than right leg] from a prior stroke and chronic dysarthria Fall precautions - chronic medical debility Patient baseline is able to walk some. Also uses a wheelchair. Disposition: [facility] assisted living Plan - Discharge Summary Discharge Rx Participant: No New Discharge Prescriptions: New Cefuroxime Axetil [Ceftin] 500 mg PO BID #6 tab Continue amLODIPine [Norvasc] 5 mg PO DAILY@0800 Tamsulosin [Flomax] 0.4 mg PO HS@1999 Atorvastatin [Lipitor] 10 mg PO HS@1999 Cholecalciferol (Vitamin D3) [Vitamin D3 (5000 Iu)] 125 mcg PO DAILY@08 Ketoconazole 2% Shampoo [Nizoral] 1 applic TOPICAL TUSA@08 Atropine Ophth Soln 1% 5Ml [Isopto Atropine 1% 5Ml] 1 drop SUBLINGUAL Q4H PRN PRN Reason: Secretions Psyllium Husk 100% [Metamucil Packet] 6 gm PO BID@799,1999 Discharge Medication List Atorvastatin [Lipitor] 10 mg PO HS@199907/09/18 [History] Tamsulosin [Flomax] 0.4 mg PO HS@199907/09/18 [History] amLODIPine [Norvasc] 5 mg PO DAILY@0800 07/09/18 [History] Cholecalciferol (Vitamin D3) [Vitamin D3 (5000 Iu)] 125 mcg PO DAILY@0800 10/03/20 [History] Atropine Ophth Soln 1% 5Ml [Isopto Atropine 1% 5Ml] 1 drop SUBLINGUAL Q4H PRN 11/19/20 [History] Ketoconazole 2% Shampoo [Nizoral] 1 applic TOPICAL TUSA@0805/11/21 [History] Psyllium Husk 100% [Metamucil Packet] 6 gm PO BID@799,199905/11/21 [History] Cefuroxime Axetil [Ceftin] 500 mg PO BID #6 tab 05/14/21 [Rx] Follow up Appointment(s)/Referral(s): Jeffrey Balbuena DO [Primary Care Provider] - 1-2 days Residential Home,Health [NON-STAFF] - As Needed Patient Instructions/Handouts: Viral Pneumonia (DC), Hypoxia (GEN) Activity/Diet/Wound Care/Special Instructions: *Call [facility] to go over discharge - [phone] *Patient's will transport back to [facility] at discharge. Discharge Disposition: TRANSFER TO SNF/ECF
== END 2021-05-15 15:34 | DRG 177 ==
LOC: EC 18:11 → 4SSUR 21:30
PROVIDERS: ADMIT Hospitalist; ATTEND Hospitalist
DX: J15.6 Pneumonia due to other Gram-negative bacteria (principal); J96.01 Acute respiratory failure with hypoxia; K22.10 Ulcer of esophagus without bleeding; I69.351 Hemiplegia and hemiparesis following cerebral infarction affecting right dominant side; E86.0 Dehydration; Z20.822 Contact with and (suspected) exposure to COVID-19; I10 Essential (primary) hypertension; E78.5 Hyperlipidemia, unspecified; N40.0 Benign prostatic hyperplasia without lower urinary tract symptoms; K59.00 Constipation, unspecified; K21.9 Gastro-esophageal reflux disease without esophagitis; F03.90 Unspecified dementia, unspecified severity, without behavioral disturbance, psychotic disturbance, mood disturbance, and anxiety; F41.9 Anxiety disorder, unspecified; L30.9 Dermatitis, unspecified; K44.9 Diaphragmatic hernia without obstruction or gangrene; R47.1 Dysarthria and anarthria; R53.81 Other malaise; I69.319 Unspecified symptoms and signs involving cognitive functions following cerebral infarction; Z87.891 Personal history of nicotine dependence; Z91.81 History of falling; Z98.890 Other specified postprocedural states; Z82.3 Family history of stroke; Z81.8 Family history of other mental and behavioral disorders; I69.392 Facial weakness following cerebral infarction; Z79.899 Other long term (current) drug therapy; Z87.01 Personal history of pneumonia (recurrent)
CPT/HCPCS: 36415; 70450; 71045; 71046; 80053; 81003; 83605; 84145; 85025; 87040; 87635; 93005; 96365; 99285

== ENCOUNTER 2021-12-04 10:39 | Inpatient (IN) | payer MEDICARE, OTHER ==
[2021-12-04] MEDS ORDERED: SODIUM CHLORIDE 0.9% 500 ML 500 ML IV STA (11:16)
[2021-12-04 11:33] LABS: Basophils # (A) 0.1 k/uL (0-0.2); Basophils % (A) 1 %; Eosinophils # (A) 0.3 k/uL (0-0.7); Eosinophils % (A) 4 %; HGB 14.8 gm/dL (13.0-17.5); Lymphocytes # (A) 1.4 k/uL (1.0-4.8); Lymphocytes % (A) 18 %; MCH 29.8 pg (25.0-35.0); MCHC 30.8 g/dL (31.0-37.0); MCV 96.7 fL (80.0-100.0); Mean Platelet Volume 7.9; Monocytes # (A) 0.6 k/uL (0-1.0); Monocytes % (A) 8 %; Neutrophils % (A) 66 %; Platelet Count 209 k/uL (150-450); RBC 4.96 m/uL (4.30-5.90); RDW 13.7 % (11.5-15.5); WBC 7.5 k/uL (3.8-10.6)
[2021-12-04 11:34] LABS: Albumin 4.4 g/dL (3.5-5.0); Calcium 9.2 mg/dL (8.4-10.2); Phosphorus 3.3 mg/dL (2.5-4.5); Potassium 4.4 mmol/L (3.5-5.1); Total Bilirubin 0.6 mg/dL (0.2-1.3); Total Protein 7.9 g/dL (6.3-8.2)
[2021-12-04 11:50] LABS: Partial Thromboplastin Time 26.4 sec (22.0-30.0); Prothrombin Time 10.5 sec (9.0-12.0)
[2021-12-04] MEDS ORDERED: SODIUM CHLORIDE 0.9% 500 ML 500 ML IV ONE (11:56)
--- NOTE | 2021-12-04 12:34 | XR ---
EXAMINATION TYPE: XR chest 2V DATE OF EXAM: 12/04/2021 COMPARISON: 05/14/2021 TECHNIQUE: PA and lateral views submitted. HISTORY: Weakness FINDINGS: A diffuse interstitial pattern with left lower lobe infiltrate Limited inspiration. Diffuse osteopeni a. Atherosclerotic change aorta. No pneumothorax. Arthropathy of the shoulders. Biapical pleural thic kening. IMPRESSION: 1. Correlate for left lower lobe infiltrate and superimposed interstitial pneumonitis versus venous c ongestion.
--- NOTE | 2021-12-04 13:04 | ED ---
General Adult HPI - General Chief complaint: Recheck/Abnormal Lab/Rx Stated complaint: Abnormal Labs Time Seen by Provider: 12/04/21 11:06 Source: patient, EMS Mode of arrival: EMS Limitations: altered mental status - History of Present Illness Initial comments: Patient is an 86-year-old male presenting for evaluation from his detention. Physician at his detention stated that his oxygen saturation was low and he was "not acting himself". They state that he was having some increased confusion. Patient has history of stroke and has a right-sided deficit, he is still able to move the right arm and leg, but there is limited range of motion and some difficulty. Patient states "I feel fine". He denies any chest pain or shortness of breath. No nausea, vomiting, diarrhea. No abdominal pain, back pain, limb pain. No hematochezia, melena, hematuria to his knowledge. No dysuria, fever, chills. No cough or URI-like symptoms. - Related Data Home Medications Medication Instructions Recorded Confirmed Atorvastatin [Lipitor] 10 mg PO HS@199907/09/18 12/04/21 Tamsulosin [Flomax] 0.4 mg PO HS@199907/09/18 12/04/21 amLODIPine [Norvasc] 5 mg PO DAILY@79907/09/18 12/04/21 Cholecalciferol (Vitamin D3) 125 mcg PO DAILY@0800 10/03/20 12/04/21 [Vitamin D3 (5000 Iu)] Atropine Ophth Soln 1% 5Ml [Isopto 1 drop SUBLINGUAL Q4H PRN 11/19/20 12/04/21 Atropine 1% 5Ml] Ketoconazole 2% Shampoo [Nizoral] 1 applic TOPICAL TUSA@79905/11/21 12/04/21 Psyllium Husk 100% [Metamucil 6 gm PO BID@799,199905/11/21 12/04/21 Packet] Albuterol Inhaler [Ventolin Hfa 2 puff INHALATION RT-Q4H PRN 12/04/21 12/04/21 Inhaler] Ammonium Lactate Cream [Lac-Hydrin 1 applic TOPICAL DAILY@79912/04/21 12/04/21 12% Cream] Niacinamide 500 mg PO BID@799,199912/04/21 12/04/21 Omeprazole 40 mg PO BID@0800,199912/04/21 12/04/21 Allergies Allergy/AdvReac Type Severity Reaction Status Date / Time Penicillins Allergy Unknown Verified 12/04/21 14:16 Childhood Review of Systems ROS Statement: Those systems with pertinent positive or pertinent negative responses have been documented in the HPI. ROS Other: All systems not noted in ROS Statement are negative. 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 - Past Family History Father History Unknown: Yes Mother Family Medical History: CVA/TIA, Dementia Additional Family Medical History / Comment(s): at age 94 or 95 General Exam Limitations: altered mental status General appearance: alert, in no apparent distress Head exam: Present: atraumatic, normocephalic, normal inspection Eye exam: Present: normal appearance, EOMI. Absent: scleral icterus Neck exam: Present: normal inspection Respiratory exam: Present: rales (Left-sided). Absent: respiratory distress, wheezes, rhonchi, stridor Cardiovascular Exam: Present: regular rate, normal rhythm, normal heart sounds. Absent: systolic murmur, diastolic murmur, rubs, gallop, clicks Neurological exam: Present: alert, altered (Some confusion), CN II-XII intact Expanded Speech: Present: expressive aphasia (His at bedside states that he is at his baseline, previous stroke) Cranial nerves: EOM's Intact: Normal, Tongue Deviation: Normal, Facial Sen sation: Normal (Patient is able to smile, frown, tightly close his eyes) Motor strength exam: RUE: 5 (for his baseline, patient has good strength and control over the arm, there is a deficit from previous stroke), LUE: 5, RLE: 5, LLE: 5 Eye Response: (4) open spontaneously Motor Response: (6) obeys commands Verbal Response: (5) oriented Psychiatric exam: Present: normal affect, normal mood Skin exam: Present: warm, dry, intact, normal color. Absent: rash Course Vital Signs 12/04/21 12/04/21 12/04/21 10:41 10:54 11:54 Temperature 97.9 F Pulse Rate 64 70 63 Respiratory 16 18 16 Rate Blood Pressure 151/79 149/78 137/75 O2 Sat by Pulse 93 L 92 L Oximetry 12/04/21 12/04/21 12/04/21 14:00 14:07 15:00 Temperature 98.2 F 98.2 F Pulse Rate 72 75 76 Respiratory 16 18 18 Rate Blood Pressure 149/80 156/84 147/77 O2 Sat by Pulse 95 95 95 Oximetry 12/04/21 16:15 Temperature 98.1 F Pulse Rate 72 Respiratory 18 Rate Blood Pressure 137/80 O2 Sat by Pulse 95 Oximetry EKG Findings - EKG Comments: EKG Findings:: Sinus rhythm with occasional supraventricular premature complexes. Rate of 76. When necessary 199. QRS duration 86. This EKG was also shown to and interpreted by my attending Dr. Thompson. Medical Decision Making - Medical Decision Making Patient is an 86-year-old male resenting from his detention after staff determined that he was not acting himself and his oxygen saturation was continuously low. He has a history of stroke and has existing deficit to the right side. On reevaluation patient states "I feel fine". His at bedside confirms that he is neurologically at baseline, no deficits to the left side on examination, right side is still mobile and strength and control is acceptable. Chest x-ray shows left lower lobe pneumonia. Patient is negative for influenza and Covid. Creatinine is 1.28 and BUN is 28, there is no recent value to compare this to. Urine and remaining lab work is unremarkable. I spoke with Dr. Fortune who agreed to admit this patient. I explained this plan to the patient and his at bedside, they conveyed verbal understanding and agreed to the plan. I discussed this case with my attending Dr. Thompson. - Lab Data Result diagrams: 12/04/21 11:15 12/04/21 11:15 Lab Results 12/04/21 12/04/21 12/04/21 Range/Units 11:15 11:15 11:15 WBC 7.5 (3.8-10.6) k/uL RBC 4.96 (4.30-5.90) m/uL Hgb 14.8 (13.0-17.5) gm/dL Hct 48.0 (39.0-53.0) % MCV 96.7 (80.0-100.0) fL MCH 29.8 (25.0-35.0) pg MCHC 30.8 L (31.0-37.0) g/dL RDW 13.7 (11.5-15.5) % Plt Count 209 (150-450) k/uL MPV 7.9 Neutrophils % 66 % Lymphocytes % 18 % Monocytes % 8 % Eosinophils % 4 % Basophils % 1 % Neutrophils # 5.0 (1.3-7.7) k/uL Lymphocytes # 1.4 (1.0-4.8) k/uL Monocytes # 0.6 (0-1.0) k/uL Eosinophils # 0.3 (0-0.7) k/uL Basophils # 0.1 (0-0.2) k/uL PT 10.5 (9.0-12.0) sec INR 1.0 (<1.2) APTT 26.4 (22.0-30.0) sec Sodium 141 (137-145) mmol/L Potassium 4.4 (3.5-5.1) mmol/L Chloride 105 (98-107) mmol/L Carbon Dioxide 28 (22-30) mmol/L Anion Gap 8 mmol/L BUN 28 H (9-20) mg/dL Creatinine 1.28 H (0.66-1.25) mg/dL Est GFR (CKD-EPI)AfAm 59 (>60 ml/min/1.73 sqM) Est GFR (CKD-EPI)NonAf 51 (>60 ml/min/1.73 sqM) Glucose 112 H (74-99) mg/dL Plasma Lactic Acid Chago (0.7-2.0) mmol/L Calcium 9.2 (8.4-10.2) mg/dL Phosphorus 3.3 (2.5-4.5) mg/dL Magnesium 2.0 (1.6-2.3) mg/dL Total Bilirubin 0.6 (0.2-1.3) mg/dL AST 36 (17-59) U/L ALT 17 (4-49) U/L Alkaline Phosphatase 93 (38-126) U/L Troponin I (0.000-0.034) ng/mL NT-Pro-B Natriuret Pep pg/mL Total Protein 7.9 (6.3-8.2) g/dL Albumin 4.4 (3.5-5.0) g/dL Urine Color Urine Appearance (Clear) Urine pH (5.0-8.0) Ur Specific [place] (1.001-1.035) Urine Protein (Negative) Urine Glucose (UA) (Negative) Urine Ketones (Negative) Urine Blood (Negative) Urine Nitrite (Negative) Urine Bilirubin (Negative) Urine Urobilinogen (<2.0) mg/dL Ur Leukocyte Esterase (Negative) Coronavirus (PCR) (Not Detectd) Influenza Type A RNA (Not Detectd) Influenza Type B (PCR) (Not Detectd) 12/04/21 12/04/21 12/04/21 Range/Units 11:15 11:15 11:15 WBC (3.8-10.6) k/uL RBC (4.30-5.90) m/uL Hgb (13.0-17.5) gm/dL Hct (39.0-53.0) % MCV (80.0-100.0) fL MCH (25.0-35.0) pg MCHC (31.0-37.0) g/dL RDW (11.5-15.5) % Plt Count (150-450) k/uL MPV Neutrophils % % Lymphocytes % % Monocytes % % Eosinophils % % Basophils % % Neutrophils # (1.3-7.7) k/uL Lymphocytes # (1.0-4.8) k/uL Monocytes # (0-1.0) k/uL Eosinophils # (0-0.7) k/uL Basophils # (0-0.2) k/uL PT (9.0-12.0) sec INR (<1.2) APTT (22.0-30.0) sec Sodium (137-145) mmol/L Potassium (3.5-5.1) mmol/L Chloride (98-107) mmol/L Carbon Dioxide (22-30) mmol/L Anion Gap mmol/L BUN (9-20) mg/dL Creatinine (0.66-1.25) mg/dL Est GFR (CKD-EPI)AfAm (>60 ml/min/1.73 sqM) Est GFR (CKD-EPI)NonAf (>60 ml/min/1.73 sqM) Glucose (74-99) mg/dL Plasma Lactic Acid Chago 1.3 (0.7-2.0) mmol/L Calcium (8.4-10.2) mg/dL Phosphorus (2.5-4.5) mg/dL Magnesium (1.6-2.3) mg/dL Total Bilirubin (0.2-1.3) mg/dL AST (17-59) U/L ALT (4-49) U/L Alkaline Phosphatase (38-126) U/L Troponin I <0.012 (0.000-0.034) ng/mL NT-Pro-B Natriuret Pep 138 pg/mL Total Protein (6.3-8.2) g/dL Albumin (3.5-5.0) g/dL Urine Color Urine Appearance (Clear) Urine pH (5.0-8.0) Ur Specific [place] (1.001-1.035) Urine Protein (Negative) Urine Glucose (UA) (Negative) Urine Ketones (Negative) Urine Blood (Negative) Urine Nitrite (Negative) Urine Bilirubin (Negative) Urine Urobilinogen (<2.0) mg/dL Ur Leukocyte Esterase (Negative) Coronavirus (PCR) (Not Detectd) Influenza Type A RNA (Not Detectd) Influenza Type B (PCR) (Not Detectd) 12/04/21 12/04/21 12/04/21 Range/Units 12:59 12:59 13:15 WBC (3.8-10.6) k/uL RBC (4.30-5.90) m/uL Hgb (13.0-17.5) gm/dL Hct (39.0-53.0) % MCV (80.0-100.0) fL MCH (25.0-35.0) pg MCHC (31.0-37.0) g/dL RDW (11.5-15.5) % Plt Count (150-450) k/uL MPV Neutrophils % % Lymphocytes % % Monocytes % % Eosinophils % % Basophils % % Neutrophils # (1.3-7.7) k/uL Lymphocytes # (1.0-4.8) k/uL Monocytes # (0-1.0) k/uL Eosinophils # (0-0.7) k/uL Basophils # (0-0.2) k/uL PT (9.0-12.0) sec INR (<1.2) APTT (22.0-30.0) sec Sodium (137-145) mmol/L Potassium (3.5-5.1) mmol/L Chloride (98-107) mmol/L Carbon Dioxide (22-30) mmol/L Anion Gap mmol/L BUN (9-20) mg/dL Creatinine (0.66-1.25) mg/dL Est GFR (CKD-EPI)AfAm (>60 ml/min/1.73 sqM) Est GFR (CKD-EPI)NonAf (>60 ml/min/1.73 sqM) Glucose (74-99) mg/dL Plasma Lactic Acid Chago (0.7-2.0) mmol/L Calcium (8.4-10.2) mg/dL Phosphorus (2.5-4.5) mg/dL Magnesium (1.6-2.3) mg/dL Total Bilirubin (0.2-1.3) mg/dL AST (17-59) U/L ALT (4-49) U/L Alkaline Phosphatase (38-126) U/L Troponin I (0.000-0.034) ng/mL NT-Pro-B Natriuret Pep pg/mL Total Protein (6.3-8.2) g/dL Albumin (3.5-5.0) g/dL Urine Color Yellow Urine Appearance Clear (Clear) Urine pH 7.0 (5.0-8.0) Ur Specific [place] 1.020 (1.001-1.035) Urine Protein Negative (Negative) Urine Glucose (UA) Negative (Negative) Urine Ketones Negative (Negative) Urine Blood Negative (Negative) Urine Nitrite Negative (Negative) Urine Bilirubin Negative (Negative) Urine Urobilinogen <2.0 (<2.0) mg/dL Ur Leukocyte Esterase Negative (Negative) Coronavirus (PCR) Not Detected (Not Detectd) Influenza Type A RNA Not Detected (Not Detectd) Influenza Type B (PCR) Not Detected (Not Detectd) Disposition Clinical Impression: Pneumonia Disposition: ADMITTED IP TO THIS HOSP Condition: Fair Time of Disposition: 13:43 Decision to Admit Reason: Admit from EC Decision Date: 12/04/21 Decision Time: 13:43
[2021-12-04 13:28] LABS: Appearance,Urine Clear (Clear); Bilirubin,Urine Negative (Negative); Blood,Urine Negative (Negative); Color,Urine Yellow; Glucose,Urine (UA) Negative (Negative); Ketones,Urine Negative (Negative); Leukocyte Esterase,Urine Negative (Negative); Nitrite,Urine Negative (Negative); Protein,Urine Negative (Negative); Urobilinogen,Urine <2.0 mg/dL (<2.0)
[2021-12-04] MEDS ORDERED: NALOXONE 0.4 MG/ML 1 ML VIAL IV PRN (14:59)
[2021-12-04] MEDS ORDERED: ATROPINE OPHTH SOLN 1% 5ML BTL SUBLINGUAL PRN (15:16)
[2021-12-04] MEDS ORDERED: LORazepam 0.5 MG TAB PO PRN (18:02)
[2021-12-04] MEDS ORDERED: ONDANSETRON 4 MG/2 ML VIAL IVP PRN (18:02)
[2021-12-04] MEDS ORDERED: LACTULOSE 20 GM/30 ML CUP PO PRN (18:02)
[2021-12-04] MEDS ORDERED: ZOLPIDEM 5 MG TAB PO PRN (18:02)
[2021-12-04] MEDS ORDERED: ACETAMINOPHEN TAB 325 MG TAB PO PRN (18:02)
[2021-12-04] MEDS ORDERED: CALCIUM CARBONATE 500 MG CHEWABLE PO PRN (18:02)
--- NOTE | 2021-12-04 18:05 | P.HPIM ---
History of Present Illness H&P Date: 12/04/21 Chief Complaint: Decreased oxygen saturation History of presenting complaint: 86-year-old patient of Dr. Balbuena. 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 Patient is able to walk some. Resident of [facility], [place]/assisted living EMS was called because patient's oxygen saturation was low. Patient was acting slightly differently. Increasing confusion. Patient himself does not really complain much. Limited historian. Does feel tired. Decreased appetite. Some cough. Slight shortness of breath. Review of systems: GEN.: Tired, decreased appetite EYES: None HEENT: None NECK: None RESPIRATORY: Some cough] CARDIOVASCULAR: None GASTROINTESTINAL: None GENITOURINARY: None MUSCULOSKELETAL: Joint pains LYMPHATICS: None HEMATOLOGICAL: None PSYCHIATRY: Forgetfulness NEUROLOGICAL: Right-sided weakness, especially the right arm, dysarthria. Past medical history to include: Hypertension, hyperlipidemia, BPH, moderate cognitive impairment from prior stroke, GERD, right-sided weakness from prior stroke, dysarthria, chronic medical debility using a wheelchair, Harris's esophagus Social history: . smoked for about 35 years, cigars. Stop smoking about 24 years ago. One drink at night. Uses a wheelchair and also able to walk slowly Physical examination: VITAL SIGNS: 97.6, 58, 18, 1 3888, 93% room air GENERAL: BMI 27.7, reclining in bed, awake a bit tired. EYES: Pupils equal. Conjunctiva normal. HEENT: External appearance of nose and ears normal, oral cavity grossly normal. NECK: JVD not raised; masses not palpable. HEART: First and second heart sounds are normal; no edema. LUNGS: Respiratory rate normal; decreased breath sounds. ABDOMEN: Soft, nontender, liver spleen not palpable, no masses palpable. PSYCH: Knows his name but cannot tell dry heaves here on Sunday he isl. MUSCULOSKELETAL:No Clubbing/cyanosis;muscles-grossly intact. Evidence of OA LYMPHATICS: No lymph nodes palpable in the axilla and neck NEUROLOGICAL: . Slight dysarthria. Right arm weakness with hand contracture. Mild right leg weakness. Past medical history to include: Hypertension, hyperlipidemia, BPH, moderate cognitive impairment from prior stroke, GERD, right-sided weakness from prior stroke, dysarthria, chronic medical debility using a wheelchair, Harris's esophagus Social history: . smoked for about 35 years, cigars. Stop smoking about 24 years ago. One drink at night. Uses a wheelchair and also able to walk slowly On examination: VITAL SIGNS: 97.4, 62, 20, 128/70, 95% room air GENERAL APPEARANCE: Sitting on bed, eating EYES: Pupils equal. Conjunctiva normal. NECK: JVD not raised. Mass not palpable. RESPIRATORY: Respiratory effort normal, decreased breath sounds CARDIOVASCULAR: First and second sounds normal. No edema. ABDOMEN: Soft. Liver and spleen not palpable. No tenderness. No mass palpable. PSYCHIATRY: Answering simple questions MUSCULAR skeletal: Evidence of OA - joints NEUROLOGICAL: . Slight dysarthria. Right arm weakness with hand contracture. Mild right leg weakness. INVESTIGATIONS, reviewed in the clinical context: White count 7.5 hemoglobin 14.8 platelets 209 potassium 4.4 BUN 28 creatinine 1.28 UA: Negative COVID 19/influenza type A/influenza type B: Not detected Chest x-ray film personally reviewed by me-left lower lobe infiltrate Assessment and plan: -Left basal pneumonia, suspected gram-negative organism: IV ceftriaxone 1 g every 12. 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 Also uses a wheelchair. IV ceftriaxone. Home medications reviewed. Subcu Lovenox. Discussed with patient. Fall precautions. 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 Smoking Status: Former smoker Past Alcohol Use History: Daily Additional Past Alcohol Use History / Comment(s): quit smoking about 24 yrs ago, smoked for about 35 yrs- cigars, 1 drink nightly Past Drug Use History: None Reported - Past Family History Father History Unknown: Yes Mother Family Medical History: CVA/TIA, Dementia Additional Family Medical History / Comment(s): at age 94 or 95 Medications and Allergies Home Medications Medication Instructions Recorded Confirmed Type Atorvastatin [Lipitor] 10 mg PO HS@199907/09/18 12/04/21 History Tamsulosin [Flomax] 0.4 mg PO HS@199907/09/18 12/04/21 History amLODIPine [Norvasc] 5 mg PO DAILY@79907/09/18 12/04/21 History Cholecalciferol (Vitamin D3) 125 mcg PO DAILY@0800 10/03/20 12/04/21 History [Vitamin D3 (5000 Iu)] Atropine Ophth Soln 1% 5Ml [Isopto 1 drop SUBLINGUAL Q4H PRN 11/19/20 12/04/21 History Atropine 1% 5Ml] Ketoconazole 2% Shampoo [Nizoral] 1 applic TOPICAL TUSA@0805/11/21 12/04/21 History Psyllium Husk 100% [Metamucil 6 gm PO BID@08,199905/11/21 12/04/21 History Packet] Albuterol Inhaler [Ventolin Hfa 2 puff INHALATION RT-Q4H PRN 12/04/21 12/04/21 History Inhaler] Ammonium Lactate Cream [Lac-Hydrin 1 applic TOPICAL DAILY@79912/04/21 12/04/21 History 12% Cream] Niacinamide 500 mg PO BID@0800,199912/04/21 12/04/21 History Omeprazole 40 mg PO BID@0800,199912/04/21 12/04/21 History Allergies Allergy/AdvReac Type Severity Reaction Status Date / Time Penicillins Allergy Unknown Verified 12/04/21 14:16 Childhood Physical Exam Vitals: Vital Signs Temp Pulse Pulse Resp BP BP Pulse Ox 12/04/21 17:39 97.6 F 58 L 18 138/88 93 L 12/04/21 16:15 98.1 F 72 18 137/80 95 12/04/21 15:00 98.2 F 76 18 147/77 95 12/04/21 14:07 98.2 F 75 18 156/84 95 12/04/21 14:00 72 16 149/80 95 12/04/21 11:54 63 16 137/75 12/04/21 10:54 70 18 149/78 92 L 12/04/21 10:41 97.9 F 64 16 151/79 93 L Intake and Output 12/04/21 12/04/21 12/04/21 06:59 14:59 22:59 Other: Weight 85 kg 85 kg Results CBC & Chem 7: 12/04/21 11:15 12/04/21 11:15 Labs: Abnormal Lab Results - Last 24 Hours (Table) 12/04/21 12/04/21 Range/Units 11:15 11:15 MCHC 30.8 L (31.0-37.0) g/dL BUN 28 H (9-20) mg/dL Creatinine 1.28 H (0.66-1.25) mg/dL Glucose 112 H (74-99) mg/dL Thrombosis Risk Factor Assmnt - Choose All That Apply Any of the Below Risk Factors Present?: No Other Risk Factors: Yes Each Risk Factor Represents 3 Points: Age 75 years or older Other congenital or acquired thrombophilia - If yes, enter type in comment: No Thrombosis Risk Factor Assessment Total Risk Factor Score: 3 Thrombosis Risk Factor Assessment Level: Moderate Risk
[2021-12-04] MEDS: ENOXAPARIN 40 MG/0.4 ML SYRINGE SQ SCH (18:34)
[2021-12-04] MEDS: PSYLLIUM HUSK 100% 6 GM PACKET PO SCH (21:26)
[2021-12-04] MEDS: PANTOPRAZOLE 40 MG TABLET PO SCH (21:27)
[2021-12-04] MEDS: TAMSULOSIN 0.4 MG CAP.ER.24H PO SCH (21:27)
[2021-12-04] MEDS: ATORVASTATIN 10 MG TAB PO SCH (21:27)
[2021-12-04] MEDS: SODIUM CHLORIDE 0.9% 1,000 ML IV SCH (21:34)
[2021-12-04] MEDS: NIACIN TR 500 MG CAPLET PO SCH (22:30)
[2021-12-05] MEDS: CHOLECALCIFEROL 125 MCG (5000 IU) TABLET PO SCH ×2 (08:02→08:09)
[2021-12-05] MEDS: PSYLLIUM HUSK 100% 6 GM PACKET PO SCH ×2 (08:03→19:50)
[2021-12-05] MEDS: ENOXAPARIN 40 MG/0.4 ML SYRINGE SQ SCH (08:03)
[2021-12-05] MEDS: amLODIPine 5 MG TAB PO SCH (08:03)
[2021-12-05] MEDS: PANTOPRAZOLE 40 MG TABLET PO SCH ×2 (08:03→19:50)
[2021-12-05] MEDS: NIACIN TR 500 MG CAPLET PO SCH ×2 (08:08→19:50)
[2021-12-05] MEDS: SODIUM CHLORIDE 0.9% 1,000 ML IV SCH ×2 (08:15→14:35)
[2021-12-05 08:46] LABS: Basophils # (A) 0.04 X 10*3/uL (0.00-0.10); Basophils % (A) 0.5 %; Eosinophils # (A) 0.16 X 10*3/uL (0.04-0.35); Eosinophils % (A) 1.9 %; HCT 41.4 % (39.6-50.0); HGB 12.6 g/dL (13.0-17.0); Immature Grans, Automated 0.6 %; Lymphocytes % (A) 15.6 %; MCH 29.1 pg (27.0-32.0); MCHC 30.4 g/dL (32.0-37.0); MCV 95.6 fL (80.0-97.0); Mean Platelet Volume 10.9 fL (9.5-12.2); Monocytes # (A) 0.75 X 10*3/uL (0.20-1.00); NRBC Per 100 WBC 0 /100 WBCS (0.0-0.0); Neutrophils # (A) 6.05 X 10*3/uL (1.80-7.70); Neutrophils % (A) 72.4 %; Platelet Count 185 X 10*3/uL (140-440); RBC 4.33 X 10*6/uL (4.40-5.60); RDW 13.5 % (11.5-14.5); WBC 8.35 X 10*3/uL (4.50-10.00)
[2021-12-05 08:57] LABS: African American GFR (CKD) 71.1 (60.0-200.0); Albumin 3.6 g/dL (3.8-4.9); Albumin/Globulin Ratio 1.57 (1.60-3.17); Anion Gap 11.9 mmol/L (10.00-18.00); BUN/Creat Ratio 19.64 Ratio (12.00-20.00); Blood Urea Nitrogen 21.6 mg/dL (9.0-27.0); Calcium 8.7 mg/dL (8.7-10.3); Carbon Dioxide 21.1 mmol/L (20.0-27.5); Globulin 2.3 g/dL (1.6-3.3); Non-African American GFR(CKD) 61.3 (60.0-200.0); Potassium 3.8 mmol/L (3.5-5.5); Total Bilirubin 0.4 mg/dL (0.30-1.20); Total Protein 5.9 g/dL (6.2-8.2)
[2021-12-05] MEDS: AMMONIUM LACTATE 12% CREAM 140 GM TUBE TOPICAL SCH (11:06)
[2021-12-05] MEDS: ATORVASTATIN 10 MG TAB PO SCH (19:50)
[2021-12-05] MEDS: TAMSULOSIN 0.4 MG CAP.ER.24H PO SCH (19:50)
--- NOTE | 2021-12-05 22:19 | P.PN ---
Progress Note - Text Progress Note Date: 12/05/21 Chief Complaint: Decreased oxygen saturation History of presenting complaint: 86-year-old patient of Dr. Balbuena. 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 Patient is able to walk some. Resident of [facility]/assisted living EMS was called because patient's oxygen saturation was low. Patient was acting slightly differently. Increasing confusion. Patient himself does not really complain much. Limited historian. Does feel tired. Decreased appetite. Some cough. Slight shortness of breath. Admitted with pneumonia started IV ceftriaxone, hypoxia. December 05: Sitting up. Eating better. Oxygenation better. Feels better. at the bedside. IV ceftriaxone. Active Medications Acetaminophen (Acetaminophen Tab 325 Mg Tab) 650 mg PO Q6HR PRN PRN Reason: Mild Pain or Fever > 100.5 Amlodipine Besylate (Amlodipine 5 Mg Tab) 5 mg PO DAILY@0800 [facility] Last Admin: 12/05/21 08:03 Dose: 5 mg Atorvastatin Calcium (Atorvastatin 10 Mg Tab) 10 mg PO HS@2000 [facility] Last Admin: 12/05/21 19:50 Dose: 10 mg Atropine Sulfate (Atropine Ophth Soln 1% 5ml Btl) 1 drops SUBLINGUAL Q4H PRN PRN Reason: Secretions Calcium Carbonate/Glycine (Calcium Carbonate 500 Mg Chewable) 1,000 mg PO Q4HR PRN PRN Reason: Dyspepsia Cholecalciferol (Cholecalciferol 125 Mcg (5000 Iu) Tablet) 125 mcg PO DAILY@0800 [facility] Last Admin: 12/05/21 08:09 Dose: 125 mcg Enoxaparin Sodium (Enoxaparin 40 Mg/0.4 Ml Syringe) 40 mg SQ DAILY [facility] Last Admin: 12/05/21 08:03 Dose: 40 mg Sodium Chloride (Saline 0.9%) 1,000 mls @ 75 mls/hr IV .[id number] [facility] Last Admin: 12/05/21 14:35 Dose: 75 mls/hr Ceftriaxone Sodium 1 gm/ (Sodium Chloride) 50 mls @ 100 mls/hr IVPB Q12HR [facility]; Protocol Last Admin: 12/05/21 20:03 Dose: 100 mls/hr Lactic Acid (Ammonium Lactate 12% Cream 140 Gm Tube) 1 applic TOPICAL DAILY@799 [facility]; Protocol Last Admin: 12/05/21 11:06 Dose: Not Given Lactulose (Lactulose 20 Gm/30 Ml Cup) 20 gm PO DAILY PRN PRN Reason: Constipation Lorazepam (Lorazepam 0.5 Mg Tab) 0.5 mg PO Q6HR PRN PRN Reason: Anxiety Last Admin: 12/05/21 19:49 Dose: 0.5 mg Naloxone HCl (Naloxone 0.4 Mg/Ml 1 Ml Vial) 0.2 mg IV Q2M PRN PRN Reason: Opioid Reversal Niacin (Niacin Tr 500 Mg Caplet) 500 mg PO BID@ [facility] Last Admin: 12/05/21 19:50 Dose: 500 mg Ondansetron HCl (Ondansetron 4 Mg/2 Ml Vial) 4 mg IVP Q8HR PRN PRN Reason: Nausea And Vomiting Pantoprazole Sodium (Pantoprazole 40 Mg Tablet) 40 mg PO BID@ [facility] Last Admin: 12/05/21 19:50 Dose: 40 mg Psyllium Hydrophilic Mucilloid (Psyllium Husk 100% 6 Gm Packet) 6 gm PO BID@ [facility] Last Admin: 12/05/21 19:50 Dose: 6 gm Tamsulosin HCl (Tamsulosin 0.4 Mg Cap.Er.24h) 0.4 mg PO HS@1999 [facility] Last Admin: 12/05/21 19:50 Dose: 0.4 mg Zolpidem Tartrate (Zolpidem 5 Mg Tab) 5 mg PO HS PRN PRN Reason: Insomnia Last Admin: 12/05/21 22:03 Dose: 5 mg Past medical history to include: Hypertension, hyperlipidemia, BPH, moderate cognitive impairment from prior stroke, GERD, right-sided weakness from prior stroke, dysarthria, chronic m edical debility using a wheelchair, Harris's esophagus Social history: . smoked for about 35 years, cigars. Stop smoking about 24 years ago. One drink at night. Uses a wheelchair and also able to walk slowly Physical examination: VITAL SIGNS: 97.6, 62, 18, 127 by a 61, 92% room air GENERAL: Sitting on bed, more awake, eating lunch EYES: Pupils equal. Conjunctiva normal. HEENT: External appearance of nose and ears normal, oral cavity grossly normal. NECK: JVD not raised; masses not palpable. HEART: First and second heart sounds are normal; no edema. LUNGS: Respiratory rate normal; decreased breath sounds. ABDOMEN: Soft, nontender, liver spleen not palpable, no masses palpable. PSYCH: Knows his name but cannot tell dry heaves here on Sunday he isl. MUSCULOSKELETAL:No Clubbing/cyanosis;muscles-grossly intact. Evidence of OA LYMPHATICS: No lymph nodes palpable in the axilla and neck NEUROLOGICAL: . Slight dysarthria. Right arm weakness with hand contracture. Mild right leg weakness. INVESTIGATIONS, reviewed in the clinical context: December 05: White count 8.3 hemoglobin 12.6 potassium 3.8 creatinine 1.1 White count 7.5 hemoglobin 14.8 platelets 209 potassium 4.4 BUN 28 creatinine 1.28 UA: Negative COVID 19/influenza type A/influenza type B: Not detected Chest x-ray film personally reviewed by me-left lower lobe infiltrate Assessment and plan: -Left basal pneumonia, suspected gram-negative organism: Improving IV ceftriaxone 1 g every 12. 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 Also uses a wheelchair. -4 code IV ceftriaxone. Other medications to continue. Doing better. Discussed diet. Hopefully home tomorrow
[2021-12-06] MEDS: NIACIN TR 500 MG CAPLET PO SCH (07:40)
[2021-12-06] MEDS: amLODIPine 5 MG TAB PO SCH (07:40)
[2021-12-06] MEDS: PANTOPRAZOLE 40 MG TABLET PO SCH (07:40)
[2021-12-06] MEDS: CHOLECALCIFEROL 125 MCG (5000 IU) TABLET PO SCH (07:40)
[2021-12-06] MEDS: PSYLLIUM HUSK 100% 6 GM PACKET PO SCH (07:41)
[2021-12-06] MEDS: AMMONIUM LACTATE 12% CREAM 140 GM TUBE TOPICAL SCH (07:41)
[2021-12-06] MEDS: ENOXAPARIN 40 MG/0.4 ML SYRINGE SQ SCH (07:41)
[2021-12-06 08:09] VITALS: BP 149/72; PULSE 75; RESP 19; TEMP 97.6
[2021-12-06] MEDS: SODIUM CHLORIDE 0.9% 1,000 ML IV SCH (11:36)
--- NOTE | 2021-12-06 19:26 | P.DS ---
Providers Date of admission: 12/04/21 15:13 Expected date of discharge: 12/06/21 Attending physician: Sidney Fortune Primary care physician: Jeffrey Balbuena [facility] Course: Chief Complaint: Decreased oxygen saturation History of presenting complaint: 86-year-old patient of Dr. Balbuena. 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 Patient is able to walk some. Resident of [facility]/assisted living EMS was called because patient's oxygen saturation was low. Patient was acting slightly differently. Increasing confusion. Patient himself does not really complain much. Limited historian. Does feel tired. Decreased appetite. Some cough. Slight shortness of breath. Admitted with pneumonia started IV ceftriaxone, hypoxia. December 05: Sitting up. Eating better. Oxygenation better. Feels better. at the bedside. IV ceftriaxone. December 06: Eating up good. Breathing stable. 92% room air. Discussed with at the bedside. We'll complete a course of Ceftin. Past medical history to include: Hypertension, hyperlipidemia, BPH, moderate cognitive impairment from prior stroke, GERD, right-sided weakness from prior stroke, dysarthria, chronic medical debility using a wheelchair, Harris's esophagus Social history: . smoked for about 35 years, cigars. Stop smoking about 24 years ago. One drink at night. Uses a wheelchair and also able to walk slowly Physical examination: VITAL SIGNS: 97.6, 75, 19, 149 with 72, 92% room air GENERAL: Sitting on bed, comfortable EYES: Pupils equal. Conjunctiva normal. HEENT: External appearance of nose and ears normal, oral cavity grossly normal. NECK: JVD not raised; masses not palpable. HEART: First and second heart sounds are normal; no edema. LUNGS: Respiratory rate normal; decreased breath sounds. ABDOMEN: Soft, nontender, liver spleen not palpable, no masses palpable. PSYCH: Knows his name but cannot tell dry heaves here on Sunday he isl. MUSCULOSKELETAL:No Clubbing/cyanosis;muscles-grossly intact. Evidence of OA NEUROLOGICAL: . Slight dysarthria. Right arm weakness with hand contracture. Mild right leg weakness. INVESTIGATIONS, reviewed in the clinical context: December 05: White count 8.3 hemoglobin 12.6 potassium 3.8 creatinine 1.1 White count 7.5 hemoglobin 14.8 platelets 209 potassium 4.4 BUN 28 creatinine 1.28 UA: Negative COVID 19/influenza type A/influenza type B: Not detected Chest x-ray film personally reviewed by me-left lower lobe infiltrate Assessment and plan: -Left basal pneumonia, suspected gram-negative organism: Improving IV ceftriaxone 1 g every 12. Complete 3 days of Ceftin. 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 Also uses a wheelchair. - follow code Disposition: Home Plan - Discharge Summary New Discharge Prescriptions: New Cefuroxime Axetil [Ceftin] 500 mg PO BID #6 tab Continue amLODIPine [Norvasc] 5 mg PO DAILY@0800 Tamsulosin [Flomax] 0.4 mg PO HS@1999 Atorvastatin [Lipitor] 10 mg PO HS@1999 Cholecalciferol (Vitamin D3) [Vitamin D3 (5000 Iu)] 125 mcg PO DAILY@08 Ketoconazole 2% Shampoo [Nizoral] 1 applic TOPICAL TUSA@08 Albuterol Inhaler [Ventolin Hfa Inhaler] 2 puff INHALATION RT-Q4H PRN PRN Reason: Shortness Of Breath Omeprazole 40 mg PO BID@ Ammonium Lactate Cream [Lac-Hydrin 12% Cream] 1 applic TOPICAL DAILY@08 Atropine Ophth Soln 1% 5Ml [Isopto Atropine 1% 5Ml] 1 drop SUBLINGUAL Q4H PRN PRN Reason: Secretions Psyllium Husk 100% [Metamucil Packet] 6 gm PO BID@ Niacinamide 500 mg PO BID@799,1999 Discharge Medication List Atorvastatin [Lipitor] 10 mg PO HS@199907/09/18 [History] Tamsulosin [Flomax] 0.4 mg PO HS@199907/09/18 [History] amLODIPine [Norvasc] 5 mg PO DAILY@0800 07/09/18 [History] Cholecalciferol (Vitamin D3) [Vitamin D3 (5000 Iu)] 125 mcg PO DAILY@0800 10/03/20 [History] Atropine Ophth Soln 1% 5Ml [Isopto Atropine 1% 5Ml] 1 drop SUBLINGUAL Q4H PRN 11/19/20 [History] Ketoconazole 2% Shampoo [Nizoral] 1 applic TOPICAL TUSA@0805/11/21 [History] Psyllium Husk 100% [Metamucil Packet] 6 gm PO BID@08,199905/11/21 [History] Albuterol Inhaler [Ventolin Hfa Inhaler] 2 puff INHALATION RT-Q4H PRN 12/04/21 [History] Ammonium Lactate Cream [Lac-Hydrin 12% Cream] 1 applic TOPICAL DAILY@79912/04/21 [History] Niacinamide 500 mg PO BID@08,199912/04/21 [History] Omeprazole 40 mg PO BID@08,199912/04/21 [History] Cefuroxime Axetil [Ceftin] 500 mg PO BID #6 tab 12/06/21 [Rx] Follow up Appointment(s)/Referral(s): Jeffrey Balbuena DO [Primary Care Provider] - 1 Week (office will be contacting you within one to two weeks for appointment time) Patient Instructions/Handouts: Viral Pneumonia (DC), Weakness (DC) Discharge Disposition: HOME WITH HOME HEALTH SERVICES
== END 2021-12-06 13:25 | disposition home health service (06) | DRG 178 ==
LOC: EC 10:39 → 4SSUR 15:13
PROVIDERS: ADMIT Hospitalist; ATTEND Hospitalist
DX: J15.6 Pneumonia due to other Gram-negative bacteria (principal); K22.10 Ulcer of esophagus without bleeding; I69.351 Hemiplegia and hemiparesis following cerebral infarction affecting right dominant side; E78.5 Hyperlipidemia, unspecified; F41.9 Anxiety disorder, unspecified; I10 Essential (primary) hypertension; K21.9 Gastro-esophageal reflux disease without esophagitis; F03.90 Unspecified dementia, unspecified severity, without behavioral disturbance, psychotic disturbance, mood disturbance, and anxiety; R41.89 Other symptoms and signs involving cognitive functions and awareness; R09.02 Hypoxemia; N40.0 Benign prostatic hyperplasia without lower urinary tract symptoms; F17.290 Nicotine dependence, other tobacco product, uncomplicated; Z91.81 History of falling; I69.322 Dysarthria following cerebral infarction; Z79.899 Other long term (current) drug therapy; Z88.0 Allergy status to penicillin; Z82.3 Family history of stroke
CPT/HCPCS: 36415; 71046; 80053; 81003; 83605; 83735; 83880; 84100; 84145; 84484; 85025; 85610; 85730; 87040; 87502; 87635; 93005; 96360; 96361; 99285

== ENCOUNTER → 2022-01-20 | Outpatient (CLI) | payer MEDICARE, OTHER ==
--- NOTE | 2022-01-20 12:38 | FL ---
INDICATION: Patient age:Male; 86 years old; Reason for study: R13.10 DYSPHAGIA; COMPARISON: None TECHNIQUE: Utilizing real-time video recording fluoroscopy, multiple images were obtained after admin istration of various consistencies of barium contrast. A speech pathologist was present throughout the exam. Fluoroscopic time: 1 minute 38 seconds FINDINGS: Consistencies administered: thin, pudding, chopped, and cookie barium consistencies. During the oral phase there is delayed mastication with all consistencies. Premature spill: With pudding and thin consistencies. Laryngeal penetration: None identified. Piriform Retention:None identified Vallecular retention: None identified. Nasopharyngeal reflux: None identified. Tracheal aspiration: None identified. IMPRESSION: 1. No evidence of tracheal aspiration. 2. Premature spill with pudding and thin consistencies. 3. Delayed mastication with all consistencies. Please see dedicated speech pathology report for additional information.
== END | disposition home or self-care (01) ==
LOC: RADFLMAIN 11:23
PROVIDERS: ATTEND Family Medicine
DX: R13.10 Dysphagia, unspecified (principal)
CPT/HCPCS: 74230

== ENCOUNTER 2023-06-21 07:19 | Inpatient (IN) | payer MEDICARE, OTHER ==
[2023-06-21] MEDS ORDERED: ONDANSETRON 4 MG/2 ML VIAL IVP STA (07:33)
[2023-06-21] MEDS ORDERED: SODIUM CHLORIDE 0.9% 500 ML 500 ML IV STA (07:33)
[2023-06-21] MEDS ORDERED: PANTOPRAZOLE 40 MG/10 ML VIAL IVP STA (07:33)
--- NOTE | 2023-06-21 07:44 | ED ---
GI Bleed HPI - General Chief complaint: Abdominal Pain Stated complaint: Vomiting Blood Time Seen by Provider: 06/21/23 07:33 Source: EMS, RN notes reviewed, old records reviewed, Caregiver Mode of arrival: EMS Limitations: no limitations - History of Present Illness Initial comments: This is a 87-year-old male to the ER today. Patient presents today for evaluation regards to GI bleed. Patient has had some vomiting dark vomiting for a few days now and progression or persistence of it was concerning to staff, concern for blood in the vomit. Himself is a poor story secondary to underlying dementia, patient does have abdominal pain MD complaint: coffee ground emesis -: days(s) Quality: painless Consistency: constant Improves with: none Worsens with: none Context: history of GI bleed Associated Symptoms: abdominal pain, nausea - Related Data Home Medications Medication Instructions Recorded Confirmed Atorvastatin [Lipitor] 10 mg PO HS@2100 07/09/18 06/21/23 Tamsulosin [Flomax] 0.4 mg PO HS@2100 07/09/18 06/21/23 amLODIPine [Norvasc] 5 mg PO DAILY@0800 07/09/18 06/21/23 Cholecalciferol (Vitamin D3) 125 mcg PO DAILY@1700 10/03/20 06/21/23 [Vitamin D3 (5000 Iu)] Ketoconazole 2% Shampoo [Nizoral] 1 applic TOPICAL DIRECTED 05/11/21 06/21/23 Psyllium Husk 100% [Metamucil 6 gm PO BID@0800,1700 05/11/21 06/21/23 Packet] Albuterol Inhaler [Ventolin Hfa 2 puff INHALATION RT-Q4H PRN 12/04/21 06/21/23 Inhaler] Ammonium Lactate Cream [Lac-Hydrin 1 applic TOPICAL DAILY@0800 12/04/21 06/21/23 12% Cream] Niacinamide 500 mg PO BID@0800,1700 12/04/21 06/21/23 Omeprazole 40 mg PO DAILY@1700 12/04/21 06/21/23 Acetaminophen [Tylenol 8 Hour] 650 mg PO Q4H PRN 06/21/23 06/21/23 Atropine Sulfate/Pf [Atropine 1% 2 drop MUCOUS MEM BID@0800,1700 06/21/23 06/21/23 Eye Drops] EPINEPHrine (Auto Inject) [Epipen] 0.3 mg IM ONCE PRN 06/21/23 06/21/23 Ensure Enlive 237 ml PO BID@1000,1400 06/21/23 06/21/23 Magnesium Hydroxide [Milk of 7,200 mg PO Q48H PRN 06/21/23 06/21/23 Magnesia Concentrate] Multivitamins, Thera [Multivitamin 1 tab PO DAILY@1700 06/21/23 06/21/23 (formulary)] Na Phos,M-B/Na Phos,Di-Ba [Fleet 133 ml RECTAL DAILY PRN 06/21/23 06/21/23 Adult] Triamcinolone 0.1% Cream [Kenalog 1 applicatio TOPICAL BID PRN 06/21/23 06/21/23 0.1% Cream] bisacodyL [Dulcolax] 10 mg RECTAL DAILY PRN 06/21/23 06/21/23 guaiFENesin [guaiFENesin Oral 200 mg PO Q4H PRN 06/21/23 06/21/23 Solution] Allergies Allergy/AdvReac Type Severity Reaction Status Date / Time Penicillins Allergy Unknown Verified 06/21/23 09:10 Childhood Review of Systems ROS Statement: Those systems with pertinent positive or pertinent negative responses have been documented in the HPI. ROS Other: All systems not noted in ROS Statement are negative. 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 - Past Family History Father History Unknown: Yes Mother Family Medical History: CVA/TIA, Dementia Additional Family Medical History / Comment(s): at age 94 or 95 General Exam General appearance: alert, in no apparent distress, anxious Head exam: Present: atraumatic, normocephalic, normal inspection Eye exam: Present: normal appearance, PERRL, EOMI. Absent: scleral icterus, conjunctival injection, periorbital swelling ENT exam: Present: normal exam, mucous membranes moist Neck exam: Present: normal inspection. Absent: tenderness, meningismus, lymphadenopathy Respiratory exam: Present: normal lung sounds bilaterally. Absent: respiratory distress, wheezes, rales, rhonchi, stridor Cardiovascular Exam: Present: normal rhythm, tachycardia, normal heart sounds. Absent: systolic murmur, diastolic murmur, rubs, gallop, clicks GI/Abdominal exam: Present: soft, normal bowel sounds. Absent: distended, tenderness, guarding, rebound, rigid Extremities exam: Present: normal inspection, full ROM, normal capillary refill. Absent: tenderness, pedal edema, joint swelling, calf tenderness Back exam: Present: normal inspection Neurological exam: Present: alert, oriented X3, CN II-XII intact Psychiatric exam: Present: normal affect, normal mood Skin exam: Present: warm, dry, intact, normal color. Absent: rash Course Vital Signs 06/21/23 06/21/23 06/21/23 07:32 08:35 09:30 Temperature 100.9 F H 99.2 F Pulse Rate 111 H 104 H 96 Respiratory 20 19 20 Rate Blood Pressure 140/84 185/91 134/75 O2 Sat by Pulse 92 L 92 L 93 L Oximetry 06/21/23 06/21/23 06/21/23 09:40 09:47 10:09 Temperature 98.6 F Pulse Rate 99 100 109 H Respiratory 18 20 18 Rate Blood Pressure 164/74 O2 Sat by Pulse 94 L Oximetry 06/21/23 06/21/23 06/21/23 11:10 12:02 13:10 Temperature 99.2 F Pulse Rate 110 H 100 112 H Respiratory 21 22 19 Rate Blood Pressure 168/81 158/74 158/88 O2 Sat by Pulse 93 L 95 95 Oximetry 06/21/23 06/21/23 06/21/23 13:55 14:03 14:06 Temperature Pulse Rate 98 92 94 Respiratory 18 18 17 Rate Blood Pressure 166/89 O2 Sat by Pulse 97 Oximetry 12/06/21/23 06/21/23 15:07 16:05 17:04 Temperature Pulse Rate 92 101 H 97 Respiratory 19 17 18 Rate Blood Pressure 180/85 118/75 155/94 O2 Sat by Pulse 95 93 L 95 Oximetry 06/21/23 17:32 Temperature 97.8 F Pulse Rate Respiratory Rate Blood Pressure O2 Sat by Pulse Oximetry - Reevaluation(s) Reevaluation #1: 06/21/23 07:56 Records reviewed Reevaluation #2: 06/21/23 12:29 Patient symptoms are improved here in the ER Reevaluation #3: 06/21/23 12:30 A shunt informed results and questions answered Reevaluation #4: 06/21/23 07:57 Was pt. sent in by a medical professional or institution (YARI Hansen, PROCESS COORDINATOR, urgent care, hospital, or [facility]...) When possible be specific @ -no Did you speak to anyone other than the patient for history (EMS, parent, family, police, friend...)? What history was obtained from this source @ -no Did you review nursing and triage notes (agree or disagree)? Why? @ -agree Are old charts reviewed (outside hosp., previous admission, EMS record, old EKG, old radiological studies, urgent care reports/EKG's, [facility] records)? Report findings @ -yes Differential Diagnosis (chest pain, altered mental status, abdominal pain women, abdominal pain men, vaginal bleeding, weakness, fever, dyspnea, syncope, headache, dizziness, GI bleed, back pain, seizure, CVA, palpatations, mental health, musculoskeletal)? @ -prior EKG interpreted by me (3pts min.). @ -yes X-rays interpreted by me (1pt min.). @ -yes positive for pneumonia CT interpreted by me (1pt min.). @ -no U/S interpreted by me (1pt. min.). @ -no What testing was considered but not performed or refused? (CT, X-rays, U/S, labs)? Why? @ -none What meds were considered but not given or refused? Why? @ -none Did you discuss the management of the patient with other professionals (professionals i.e. YARI Hansen, PROCESS COORDINATOR, lab, RT, psych nurse, social service assistant, automotive general sales manager, teacher, licensed mortgage loan officer, case packer)? Give summary @ -no Was smoking cessation discussed for >3mins.? @ -no Was critical care preformed (if so, how long)? @ -yes31 Were there social determinants of health that impacted care today? How? (Homelessness, low income, unemployed, alcoholism, drug addiction, t ransportation, low edu. Level, literacy, decrease access to med. care, group home, rehab)? @ -none Was there de-escalation of care discussed even if they declined (Discuss DNR or withdrawal of care, Hospice)? DNR status @ -no What co-morbidities impacted this encounter? (DM, HTN, Smoking, COPD, CAD, Can cer, CVA, ARF, Chemo, Hep., AIDS, mental health diagnosis, sleep apnea, morbid obesity)? @ -none Was patient admitted / discharged? Hospital course, mention meds given and route, prescriptions, significant lab abnormalities, going to OR and other pertinent info. @ - 87 male to the emergency department for evaluation of weakness suspected GI bleed, patient's found of fever pneumonia here in the emergency department. We'll trend patient's hemoglobin treat for pneumonia wash for fever hypoxia and provide supportive care Admitted Undiagnosed new problem with uncertain prognosis? @ -no Drug Therapy requiring intensive monitoring for toxicity (Heparin, Nitro, Insulin, Cardizem)? @ -no Were any procedures done? @ -no Diagnosis/symptom? @ -Fever with pneumonia with possibility of a for GI bleed Acute, or Chronic, or Acute on Chronic? @ -Acute Uncomplicated (without systemic symptoms) or Complicated (systemic symptoms)? @ -Complicated Side effects of treatment? @ -no Exacerbation, Progression, or Severe Exacerbation? @ -exacerbation Poses a threat to life or bodily function? How? (Chest pain, USA, MN, pneumonia, PE, COPD, DKA, ARF, appy, cholecystitis, CVA, Diverticulitis, Homicidal, Suicidal, threat to staff... and all critical care pts) @ -yes patient is of extremes of age Reevaluation #5: 06/21/23 12:30 Differential Fever: Pneumonia, viral URI, endocarditis, myocarditis, pericarditis, otitis, sinusitis, peritonsillar Abscess, retropharyngeal Abscess, epiglottitis, peritonitis, appendicitis, Lindsay cystitis, diverticulitis, hepatitis, colitis, UTI, PID, TOA, pyelonephritis, prostatitis, epididymitis, meningitis, encephalit is, pulmonary embolism, CVA, thyroid storm, pancreatitis, adrenal crisis, cavernous sinus thrombosis, this is not meant to be an all-inclusive list. Differential Weakness: Hypoglycemia, shock, sepsis, hyponatremia, anemia, infection, MN, ETOH, adverse medicine reaction, overdose, stroke, this is not meant to be an all-inclusive list. - Consultations Consultation #1: Spoke with [facility] was okay to admit this patient Medical Decision Making - Medical Decision Making 87 male to the emergency department for evaluation of weakness suspected GI b clarissa, patient's found of fever pneumonia here in the emergency department. We'll trend patient's hemoglobin treat for pneumonia wash for fever hypoxia and provide supportive care - Lab Data Result diagrams: 06/22/23 05:52 06/22/23 05:52 Lab Results 06/21/23 06/21/23 06/21/23 Range/Units 07:39 07:39 07:39 WBC 15.3 H (3.8-10.6) k/uL RBC 4.76 (4.30-5.90) m/uL Hgb 14.4 (13.0-17.5) gm/dL Hct 44.4 (39.0-53.0) % MCV 93.2 (80.0-100.0) fL MCH 30.3 (25.0-35.0) pg MCHC 32.5 (31.0-37.0) g/dL RDW 14.0 (11.5-15.5) % Plt Count 167 (150-450) k/uL MPV 8.5 Neutrophils % 93 % Lymphocytes % 3 % Monocytes % 3 % Eosinophils % 0 % Basophils % 0 % Neutrophils # 14.2 H (1.3-7.7) k/uL Lymphocytes # 0.5 L (1.0-4.8) k/uL Monocytes # 0.5 (0-1.0) k/uL Eosinophils # 0.0 (0-0.7) k/uL Basophils # 0.0 (0-0.2) k/uL PT 11.3 (10.0-12.5) sec INR 1.0 (<1.2) APTT 24.1 (22.0-30.0) sec Sodium 140 (137-145) mmol/L Potassium 4.6 (3.5-5.1) mmol/L Chloride 104 (98-107) mmol/L Carbon Dioxide 23 (22-30) mmol/L Anion Gap 13 mmol/L BUN 37 H (9-20) mg/dL Creatinine 0.83 (0.66-1.25) mg/dL Est GFR (CKD-EPI)AfAm >90 (>60 ml/min/1.73 sqM) Est GFR (CKD-EPI)NonAf 80 (>60 ml/min/1.73 sqM) Glucose 148 H (74-99) mg/dL Plasma Lactic Acid [place] (0.7-2.0) mmol/L Calcium 9.3 (8.4-10.2) mg/dL Magnesium 1.7 (1.6-2.3) mg/dL Total Bilirubin 1.5 H (0.2-1.3) mg/dL AST 34 (17-59) U/L ALT 20 (4-49) U/L Alkaline Phosphatase 87 (38-126) U/L Troponin I (0.000-0.034) ng/mL Total Protein 7.2 (6.3-8.2) g/dL Albumin 3.9 (3.5-5.0) g/dL Urine Color Urine Appearance (Clear) Urine pH (5.0-8.0) Ur Specific [place] (1.001-1.035) Urine Protein (Negative) Urine Glucose (UA) (Negative) Urine Ketones (Negative) Urine Blood (Negative) Urine Nitrite (Negative) Urine Bilirubin (Negative) Urine Urobilinogen (<2.0) mg/dL Ur Leukocyte Esterase (Negative) Urine RBC (0-5) /hpf Urine WBC (0-5) /hpf Ur Squamous Epith Cells (0-4) /hpf Hyaline Casts (0-2) /lpf Urine Mucus (None) /hpf Influenza Type A (PCR) (Not Detectd) Influenza Type B (PCR) (Not Detectd) Urine Legionella Ag (Negative) RSV (PCR) (Not Detectd) SARS-CoV-2 (PCR) (Not Detectd) Blood Type Blood Type Recheck Bld Type Recheck Status Antibody Screen Spec Expiration Date 06/21/23 06/21/23 06/21/23 Range/Units 07:39 07:39 07:39 WBC (3.8-10.6) k/uL RBC (4.30-5.90) m/uL Hgb (13.0-17.5) gm/dL Hct (39.0-53.0) % MCV (80.0-100.0) fL MCH (25.0-35.0) pg MCHC (31.0-37.0) g/dL RDW (11.5-15.5) % Plt Count (150-450) k/uL MPV Neutrophils % % Lymphocytes % % Monocytes % % Eosinophils % % Basophils % % Neutrophils # (1.3-7.7) k/uL Lymphocytes # (1.0-4.8) k/uL Monocytes # (0-1.0) k/uL Eosinophils # (0-0.7) k/uL Basophils # (0-0.2) k/uL PT (10.0-12.5) sec INR (<1.2) APTT (22.0-30.0) sec Sodium (137-145) mmol/L Potassium (3.5-5.1) mmol/L Chloride (98-107) mmol/L Carbon Dioxide (22-30) mmol/L Anion Gap mmol/L BUN (9-20) mg/dL Creatinine (0.66-1.25) mg/dL Est GFR (CKD-EPI)AfAm (>60 ml/min/1.73 sqM) Est GFR (CKD-EPI)NonAf (>60 ml/min/1.73 sqM) Glucose (74-99) mg/dL Plasma Lactic Acid [place] 1.5 (0.7-2.0) mmol/L Calcium (8.4-10.2) mg/dL Magnesium (1.6-2.3) mg/dL Total Bilirubin (0.2-1.3) mg/dL AST (17-59) U/L ALT (4-49) U/L Alkaline Phosphatase (38-126) U/L Troponin I 0.031 (0.000-0.034) ng/mL Total Protein (6.3-8.2) g/dL Albumin (3.5-5.0) g/dL Urine Color Urine Appearance (Clear) Urine pH (5.0-8.0) Ur Specific [place] (1.001-1.035) Urine Protein (Negative) Urine Glucose (UA) (Negative) Urine Ketones (Negative) Urine Blood (Negative) Urine Nitrite (Negative) Urine Bilirubin (Negative) Urine Urobilinogen (<2.0) mg/dL Ur Leukocyte Esterase (Negative) Urine RBC (0-5) /hpf Urine WBC (0-5) /hpf Ur Squamous Epith Cells (0-4) /hpf Hyaline Casts (0-2) /lpf Urine Mucus (None) /hpf Influenza Type A (PCR) (Not Detectd) Influenza Type B (PCR) (Not Detectd) Urine Legionella Ag (Negative) RSV (PCR) (Not Detectd) SARS-CoV-2 (PCR) (Not Detectd) Blood Type O Negative Blood Type Recheck O Neg Bld Type Recheck Status No Antibody Screen NEGATIVE Spec Expiration Date 06/24/2023 - 233806/21/23 06/21/23 06/21/23 Range/Units 08:36 09:03 12:00 WBC (3.8-10.6) k/uL RBC (4.30-5.90) m/uL Hgb (13.0-17.5) gm/dL Hct (39.0-53.0) % MCV (80.0-100.0) fL MCH (25.0-35.0) pg MCHC (31.0-37.0) g/dL RDW (11.5-15.5) % Plt Count (150-450) k/uL MPV Neutrophils % % Lymphocytes % % Monocytes % % Eosinophils % % Basophils % % Neutrophils # (1.3-7.7) k/uL Lymphocytes # (1.0-4.8) k/uL Monocytes # (0-1.0) k/uL Eosinophils # (0-0.7) k/uL Basophils # (0-0.2) k/uL PT (10.0-12.5) sec INR (<1.2) APTT (22.0-30.0) sec Sodium (137-145) mmol/L Potassium (3.5-5.1) mmol/L Chloride (98-107) mmol/L Carbon Dioxide (22-30) mmol/L Anion Gap mmol/L BUN (9-20) mg/dL Creatinine (0.66-1.25) mg/dL Est GFR (CKD-EPI)AfAm (>60 ml/min/1.73 sqM) Est GFR (CKD-EPI)NonAf (>60 ml/min/1.73 sqM) Glucose (74-99) mg/dL Plasma Lactic Acid Chago (0.7-2.0) mmol/L Calcium (8.4-10.2) mg/dL Magnesium (1.6-2.3) mg/dL Total Bilirubin (0.2-1.3) mg/dL AST (17-59) U/L ALT (4-49) U/L Alkaline Phosphatase (38-126) U/L Troponin I (0.000-0.034) ng/mL Total Protein (6.3-8.2) g/dL Albumin (3.5-5.0) g/dL Urine Color Light [place] Urine Appearance Clear (Clear) Urine pH 6.5 (5.0-8.0) Ur Specific [place] 1.020 (1.001-1.035) Urine Protein 1+ H (Negative) Urine Glucose (UA) Negative (Negative) Urine Ketones 1+ (Negative) Urine Blood Negative (Negative) Urine Nitrite Negative (Negative) Urine Bilirubin Negative (Negative) Urine Urobilinogen <2.0 (<2.0) mg/dL Ur Leukocyte Esterase Negative (Negative) Urine RBC 2 (0-5) /hpf Urine WBC 1 (0-5) /hpf Ur Squamous Epith Cells <1 (0-4) /hpf Hyaline Casts 4 H (0-2) /lpf Urine Mucus Rare H (None) /hpf Influenza Type A (PCR) Not Detected (Not Detectd) Influenza Type B (PCR) Not Detected (Not Detectd) Urine Legionella Ag Negative (Negative) RSV (PCR) Not Detected (Not Detectd) SARS-CoV-2 (PCR) Not Detected (Not Detectd) Blood Type Blood Type Recheck Bld Type Recheck Status Antibody Screen Spec Expiration Date - Radiology Data Radiology results: report reviewed (Chest x-rays positive for pneumonia), image reviewed Critical Care Time Critical Care Time: Yes Total Critical Care Time: 31 Disposition Clinical Impression: Dehydration, Weakness, Pneumonia, Fever, Hypoxia, Anemia, Dizziness, Upper GI hemorrhage Disposition: ADMITTED IP TO THIS HOSP Condition: Serious Is patient prescribed a controlled substance at d/c from ED?: No Time of Disposition: 00:30
[2023-06-21] MEDS ORDERED: ACETAMINOPHEN IV (For NPO) 1,000 MG in EMPTY BAG 1 BAG IVPB STA (07:57)
[2023-06-21 08:15] LABS: Partial Thromboplastin Time 24.1 sec (22.0-30.0); Prothrombin Time 11.3 sec (10.0-12.5)
[2023-06-21] MEDS ORDERED: IPRATROPIUM-ALBUTEROL 3 ML NEB INHALATION STA ×2 (08:23→12:25)
[2023-06-21 08:24] LABS: ALT 20 U/L (4-49); African American GFR (CKD) >90 (>60 ml/min/1.73 sqM); Albumin 3.9 g/dL (3.5-5.0); Anion Gap 13 mmol/L; Blood Urea Nitrogen 37 mg/dL (9-20); Calcium 9.3 mg/dL (8.4-10.2); Carbon Dioxide 23 mmol/L (22-30); Chloride 104 mmol/L (98-107); Glucose 148 mg/dL (74-99); Non-African American GFR(CKD) 80 (>60 ml/min/1.73 sqM); Sodium 140 mmol/L (137-145); Total Bilirubin 1.5 mg/dL (0.2-1.3); Total Protein 7.2 g/dL (6.3-8.2)
[2023-06-21 08:31] LABS: AST 34 U/L (17-59); Magnesium 1.7 mg/dL (1.6-2.3); Potassium 4.6 mmol/L (3.5-5.1)
[2023-06-21 08:32] LABS: Alkaline Phosphatase 87 U/L (38-126)
[2023-06-21 08:33] LABS: Basophils % (A) 0 %; Eosinophils % (A) 0 %; HCT 44.4 % (39.0-53.0); HGB 14.4 gm/dL (13.0-17.5); Lymphocytes # (A) 0.5 k/uL (1.0-4.8); Lymphocytes % (A) 3 %; MCH 30.3 pg (25.0-35.0); MCHC 32.5 g/dL (31.0-37.0); MCV 93.2 fL (80.0-100.0); Mean Platelet Volume 8.5; Monocytes # (A) 0.5 k/uL (0-1.0); Monocytes % (A) 3 %; Neutrophils # (A) 14.2 k/uL (1.3-7.7); Neutrophils % (A) 93 %; Platelet Count 167 k/uL (150-450); RBC 4.76 m/uL (4.30-5.90); WBC 15.3 k/uL (3.8-10.6)
--- NOTE | 2023-06-21 08:53 | XR ---
EXAMINATION TYPE: XR chest 1V portable DATE OF EXAM: 06/21/2023 Comparison: 12/05/2019 Clinical History: 87 year-old male shortness of breath Findings: Heart normal size. Focal opacity right apical opacity. Mild interstitial density right upper lobe. Pa tchy retrocardiac opacity shows some improvement. No pleural effusion. Similar asymmetric elevation r ight hemidiaphragm which may in part be positional. Impression: Subtle patchy and interstitial densities right upper lobe and retrocardiac region. Aeration is overal l improving. Focal patchy right apical opacity is similar.
[2023-06-21 09:50] LABS: Appearance,Urine Clear (Clear); Bilirubin,Urine Negative (Negative); Blood,Urine Negative (Negative); Color,Urine Light Orange; Glucose,Urine (UA) Negative (Negative); Ketones,Urine 1+ (Negative); Leukocyte Esterase,Urine Negative (Negative); Nitrite,Urine Negative (Negative); PH, Urine 6.5 (5.0-8.0); Protein,Urine 1+ (Negative); Urobilinogen,Urine <2.0 mg/dL (<2.0)
[2023-06-21 09:52] LABS: Hyaline Casts,Urine 4 /lpf (0-2); Mucus,Urine Rare /hpf; RBC,Urine 2 /hpf (0-5); Squamous Epithelial Cell,Urine <1 /hpf (0-4); WBC,Urine 1 /hpf (0-5)
[2023-06-21] MEDS ORDERED: ALBUTEROL NEBULIZED 2.5 MG/3 ML INHALATION PRN (12:25)
[2023-06-21] MEDS ORDERED: AZITHROMYCIN 500 MG in SODIUM CHLORIDE 0.9% 250 ML IVPB STA (12:25)
[2023-06-21] MEDS ORDERED: PNEUMONIA PROTOCOL UTILIZED 1 EACH MISC PO PRN (12:25)
[2023-06-21] MEDS: SODIUM CHLORIDE 0.9% 1,000 ML IV SCH ×2 (13:11→23:21)
[2023-06-21] MEDS ORDERED: ALBUTEROL HFA INHALER INHALATION PRN (16:32)
[2023-06-21] MEDS ORDERED: MAGNESIUM HYDROXIDE 2,400 MG/30 ML CUP PO PRN (16:32)
[2023-06-21] MEDS ORDERED: ACETAMINOPHEN TAB 325 MG TAB PO PRN (16:32)
[2023-06-21] MEDS ORDERED: ATROPINE OPHTH SOLN 1% 5ML BTL SUBLINGUAL SCH (17:00)
[2023-06-21] MEDS ORDERED: ATROPINE OPHTH SOLN 1% 5ML BTL BOTH EYES SCH (17:00)
[2023-06-21] MEDS: PANTOPRAZOLE 40 MG TABLET PO SCH (17:13)
[2023-06-21] MEDS: TAMSULOSIN 0.4 MG CAP.ER.24H PO SCH (19:59)
[2023-06-21] MEDS: ATORVASTATIN 10 MG TAB PO SCH (19:59)
--- NOTE | 2023-06-21 23:39 | P.HPIM ---
History of Present Illness H&P Date: 06/21/23 Chief Complaint: Coffee-ground emesis Patient is a 87-year-old male with a past medical history of hypertension, hyperlipidemia, history of CVA with right-sided paralysis and speech problems currently wheelchair and dementia, anxiety and prior history of smoking and also right carotid endarterectomy was brought to the hospital for possible GI bleed. According to his caregiver patient had vomiting dark-colored about a few days ago and concern for blood in the stool. [facility] Otherwise patient is a poor historian and unable to provide any history. Due to underlying dementia. Chest x-ray showed subtle patchy and interstitial densities right upper lobe and retrocardiac region. Aeration is overall improving. Patchy focal right apical opacity is similar. Laboratory data showed WBC 15.3 hemoglobin 14.4 and platelets 167 Sodium 140 potassium 4.6 chloride 104 bicarb is 23 BUN 37 creatinine 0.83 and blood sugar 148 magnesium 1.7 and total bili 1.5 during use of activated troponin x 1 negative and urinalysis showed 1+ protein leukocyte esterase n egative and RBCs 2 WBCs 1 Influenza A, B, RSV and COVID-19 PCR not detected. 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 - Past Family History Father History Unknown: Yes Mother Family Medical History: CVA/TIA, Dementia Additional Family Medical History / Comment(s): at age 94 or 95 Medications and Allergies Home Medications Medication Instructions Recorded Confirmed Type Atorvastatin [Lipitor] 10 mg PO HS@2100 07/09/18 06/21/23 History Tamsulosin [Flomax] 0.4 mg PO HS@2100 07/09/18 06/21/23 History amLODIPine [Norvasc] 5 mg PO DAILY@0800 07/09/18 06/21/23 History Cholecalciferol (Vitamin D3) 125 mcg PO DAILY@1700 10/03/20 06/21/23 History [Vitamin D3 (5000 Iu)] Ketoconazole 2% Shampoo [Nizoral] 1 applic TOPICAL DIRECTED 05/11/21 06/21/23 History Psyllium Husk 100% [Metamucil 6 gm PO BID@0800,1700 05/11/21 06/21/23 History Packet] Albuterol Inhaler [Ventolin Hfa 2 puff INHALATION RT-Q4H PRN 12/04/21 06/21/23 History Inhaler] Ammonium Lactate Cream [Lac-Hydrin 1 applic TOPICAL DAILY@0800 12/04/21 06/21/23 History 12% Cream] Niacinamide 500 mg PO BID@0800,1700 12/04/21 06/21/23 History Omeprazole 40 mg PO DAILY@1700 12/04/21 06/21/23 History Acetaminophen [Tylenol 8 Hour] 650 mg PO Q4H PRN 06/21/23 06/21/23 History Atropine Sulfate/Pf [Atropine 1% 2 drop MUCOUS MEM BID@0800,1700 06/21/23 06/21/23 History Eye Drops] EPINEPHrine (Auto Inject) [Epipen] 0.3 mg IM ONCE PRN 06/21/23 06/21/23 History Ensure Enlive 237 ml PO BID@1000,1400 06/21/23 06/21/23 History Magnesium Hydroxide [Milk of 7,200 mg PO Q48H PRN 06/21/23 06/21/23 History Magnesia Concentrate] Multivitamins, Thera [Multivitamin 1 tab PO DAILY@1700 06/21/23 06/21/23 History (formulary)] Na Phos,M-B/Na Phos,Di-Ba [Fleet 133 ml RECTAL DAILY PRN 06/21/23 06/21/23 History Adult] Triamcinolone 0.1% Cream [Kenalog 1 applicatio TOPICAL BID PRN 06/21/23 06/21/23 History 0.1% Cream] bisacodyL [Dulcolax] 10 mg RECTAL DAILY PRN 06/21/23 06/21/23 History guaiFENesin [guaiFENesin Oral 200 mg PO Q4H PRN 06/21/23 06/21/23 History Solution] Allergies Allergy/AdvReac Type Severity Reaction Status Date / Time Penicillins Allergy Unknown Verified 06/21/23 09:10 Childhood Physical Exam Vitals: Vital Signs Temp Pulse Resp BP Pulse Ox 06/21/23 16:05 101 H 17 118/75 93 L 06/21/23 15:07 92 19 180/85 95 06/21/23 14:06 94 17 166/89 97 06/21/23 14:03 92 18 06/21/23 13:55 98 18 06/21/23 13:10 99.2 F 112 H 19 158/88 95 06/21/23 12:02 100 22 158/74 95 06/21/23 11:10 110 H 21 168/81 93 L 06/21/23 10:09 98.6 F 109 H 18 164/74 94 L 06/21/23 09:47 100 20 06/21/23 09:40 99 18 06/21/23 09:30 99.2 F 96 20 134/75 93 L 06/21/23 08:35 104 H 19 185/91 92 L 06/21/23 07:32 100.9 F H 111 H 20 140/84 92 L Intake and Output 06/21/23 06/21/23 06/21/23 06:59 14:59 22:59 Output Total 400 Balance -400 Output: Urine 400 Other: Weight 58.967 kg PHYSICAL EXAMINATION: Patient is lying in the bed, no acute distress, awake alert but not oriented. HEENT: Normocephalic. Neck is supple. Pupils reactive. Nostrils clear. Oral cavity is moist. Neck reveals no JVD, carotid bruits, or thyromegaly. CHEST EXAMINATION: Trachea is central. Symmetrical expansion. Bibasilar diminished air entry. No wheezing. No rhonchi. CARDIAC: Normal S1, S2 with no gallops. No murmurs ABDOMEN: Soft. Bowel sounds present. Nontender. No organomegaly. No abdominal bruits. Extremities: reveal no edema. No clubbing or cyanosis Neurologically awake, alert, oriented x0-1,. Patient does have right-sided weakness and speech difficulty. Skin: No rash or skin lesions. Psychiatric: Coperative. Could not be assessed completely. Musculoskeletal: No joint swelling or deformity. Results CBC & Chem 7: 06/21/23 07:39 06/21/23 07:39 Labs: Abnormal Lab Results - Last 24 Hours (Table) 06/21/23 06/21/23 06/21/23 Range/Units 07:39 07:39 09:03 WBC 15.3 H (3.8-10.6) k/uL Neutrophils # 14.2 H (1.3-7.7) k/uL Lymphocytes # 0.5 L (1.0-4.8) k/uL BUN 37 H (9-20) mg/dL Glucose 148 H (74-99) mg/dL Total Bilirubin 1.5 H (0.2-1.3) mg/dL Urine Protein 1+ H (Negative) Hyaline Casts 4 H (0-2) /lpf Urine Mucus Rare H (None) /hpf Thrombosis Risk Factor Assmnt - DVT/VTE Prophylaxis DVT/VTE Prophylaxis: Mechanical Prophylaxis ordered Assessment and Plan Assessment: Right upper lobe pneumonia with chest x-ray showed patchy and interstitial densities. Possible aspiration pneumonia Sepsis secondary to above. Patient is tachycardic and leukocytosis Coffee-ground emesis. Rule out GI bleed. Hemoglobin 14.4 on admission Advanced dementia History of CVA/TIA with right-sided paralysis and speech problems. Patient is on wheelchair History of Harris's esophagus Hypertension Hyperlipidemia GERD BPH Anxiety Prior history of smoking DVT prophylaxis with SCDs due to concern for GI bleed Plan: Patient will be continued on gentle IV hydration. Continue with antibiotics ceftriaxone and azithromycin. Follow-up blood cultures. Patient will be continued on Protonix and monitor H&H Speech/swallow evaluation due to concern for aspiration. Continue other home medications and follow-up closely. Prognosis is guarded. Time with Patient: Greater than 30
[2023-06-22] MEDS ORDERED: HEPARIN SODIUM,PORCINE 5,000 UNIT/ML 1 ML VIAL SQ SCH
[2023-06-22] MEDS: ATROPINE OPHTH SOLN 1% 5ML BTL SUBLINGUAL SCH ×2 (10:46→16:16)
[2023-06-22 11:00] LABS: Basophils # (A) 0.03 X 10*3/uL (0.00-0.10); Basophils % (A) 0.3 %; Eosinophils # (A) 0.09 X 10*3/uL (0.04-0.35); Eosinophils % (A) 0.8 %; HCT 38.7 % (39.6-50.0); HGB 12.3 g/dL (13.0-17.0); Lymphocytes # (A) 0.92 X 10*3/uL (0.90-5.00); Lymphocytes % (A) 8.2 %; MCH 29.4 pg (27.0-32.0); MCHC 31.8 g/dL (32.0-37.0); MCV 92.4 FL (80.0-97.0); Mean Platelet Volume 10.7 FL (9.5-12.2); Monocytes # (A) 0.59 X 10*3/uL (0.20-1.00); Monocytes % (A) 5.2 %; NRBC Per 100 WBC 0 X 10*3/uL (0.00-0.01); Neutrophils # (A) 9.58 X 10*3/uL (1.80-7.70); Neutrophils % (A) 85.1 %; Platelet Count 154 X 10*3/uL (140-440); RBC 4.19 X 10*6/uL (4.40-5.60); RDW 14.6 % (11.5-14.5); WBC 11.25 X 10*3/uL (4.50-10.00)
[2023-06-22 11:30] LABS: BUN/Creat Ratio 23.75 Ratio (12.00-20.00); Calcium 8.7 mg/dL (8.7-10.3); Carbon Dioxide 23.1 mmol/L (21.6-31.8); Chloride 106 mmol/L (96-109); Glucose 101 mg/dL (70-110); Potassium 3.9 mmol/L (3.5-5.5); Sodium 142 mmol/L (135-145)
[2023-06-22] MEDS: AZITHROMYCIN 500 MG in SODIUM CHLORIDE 0.9% 250 ML IVPB SCH (12:04)
[2023-06-22 13:02] VITALS: BMI 18.6
--- NOTE | 2023-06-22 13:13 | P.PN ---
Subjective Progress Note Date: 06/22/23 Patient is a 87-year-old male with a past medical history of hypertension, hyperlipidemia, history of CVA with right-sided paralysis and speech problems currently wheelchair and dementia, anxiety and prior history of smoking and also right carotid endarterectomy was brought to the hospital for possible GI bleed. According to his caregiver patient had vomiting dark-colored about a few days ago and concern for blood in the stool. Patient was sent from [facility]. Otherwise patient is a poor historian and unable to provide any history. Due to underlying dementia. Chest x-ray showed subtle patchy and interstitial densities right upper lobe and retrocardiac region. Aeration is overall improving. Patchy focal right apical opacity is similar. Laboratory data showed WBC 15.3 hemoglobin 14.4 and platelets 167 Sodium 140 potassium 4.6 chloride 104 bicarb is 23 BUN 37 creatinine 0.83 and blood sugar 148 magnesium 1.7 and total bili 1.5 during use of activated troponin x 1 negative and urinalysis showed 1+ protein leukocyte esterase negative and RBCs 2 WBCs 1 Influenza A, B, RSV and COVID-19 PCR not detected. 06/22/2023 Patient is seen in follow-up today currently resides at [facility] with continued care with plans on returning there. Patient sent here with concerns of possible pneumonia with possible aspiration. Speech therapy consulted and pending at this time. Per nursing staff patient ate all of breakfast with no difficulties and is maintained on aspiration precautions. Patient also continued on antibiotics in the form of Zithromax and ceftriaxone. Pro-calcitonin is 1.0 and white count is trending down at 11.25 today. Patient remains afebrile and urinalysis was negative other testing including influenza, Legionella, RSV and Covid were all negative. Will await speech therapy evaluation and appreciate input and recommendations. Patient is currently on 2 L and reports he wears oxygen outpatient. Will discuss further with social work regarding discharge planning once evaluated by speech. Review of systems: Unable to obtain given patient's mental status PHYSICAL EXAMINATION: Patient is sitting up in the bed, no acute distress, awake alert but not oriented. Thin built, elderly appearing HEENT: Normocephalic. Neck is supple. Pupils reactive. Nostrils clear. Oral ca vity is moist. Neck reveals no JVD, carotid bruits, or thyromegaly. CHEST EXAMINATION: Trachea is central. Symmetrical expansion. Bibasilar diminished air entry. No wheezing. No rhonchi. CARDIAC: Normal S1, S2 with no gallops. No murmurs ABDOMEN: Soft. Bowel sounds present. Nontender. No organomegaly. No abdominal bruits. Extremities: reveal no edema. No clubbing or cyanosis Neurologically awake, alert, oriented x0-1,. Patient does have right-sided weakness and speech difficulty. Skin: No rash or skin lesions. Psychiatric: Cooperative. Could not be assessed completely. Musculoskeletal: No joint swelling or deformity. Assessment: Right upper lobe pneumonia with chest x-ray showed patchy and interstitial densities. Possible aspiration pneumonia Sepsis secondary to above. Patient is tachycardic and leukocytosis Coffee-ground emesis. Rule out GI bleed. Hemoglobin 14.4 on admission. Suspicion is low Advanced dementia History of CVA/TIA with right-sided paralysis and speech problems. Patient is on wheelchair History of Harris's esophagus Hypertension Hyperlipidemia GERD BPH Anxiety Prior history of smoking DVT prophylaxis with SCDs due to concern for GI bleed Plan: Patient will be continued on gentle IV hydration. Continue with antibiotics ceftriaxone and azithromycin. Pro-calcitonin was 1.0. Blood cultures pending, sputum culture remains uncollected Continue on Protonix. Hemoglobin today is 12.3 with no signs of bleeding noted. Patient is not having any hematemesis Speech/swallow evaluation due to concern for aspiration. Await speech therapy to evaluate and make recommendations regarding diet. Per nursing staff patient was able to eat and tolerate all of breakfast with no difficulties. Patient currently maintained on 2 L via nasal cannula with oxygen saturations of 94%. Patient reports he wears oxygen outpatient although poor historian Plan is to return to [facility] as he is a long-term resident there Due to multiple complex medical issues, prognosis is guarded The impression and plan of care has been dictated by Sabi Girard, Nurse Practitioner as directed. Dr. Ryne MD I have performed a history and examination and MDM of this patient, discussed the same with the dictator, and agree with the dictator's assessment and plan as written ,documented as a scribe. Based on total visit time, I have performed more than 50% of the visit. Objective - Vital Signs Vital signs: Vital Signs Temp 97.6 F 06/22/23 00:43 Pulse 101 H 12/22/23 00:43 Resp 20 06/21/23 18:07 BP 130/72 06/22/23 00:43 Pulse Ox 91 L 06/22/23 00:43 FiO2 Intake & Output 06/21/23 06/22/23 06/22/23 18:59 06:59 18:59 Output Total 400 Balance -400 Weight 58.967 kg Output: Urine 400 Other: Voiding Method Diaper # Voids 2 # Bowel Movements 1 - Labs CBC & Chem 7: 06/22/23 05:52 06/22/23 05:52 Labs: Abnormal Lab Results - Last 24 Hours (Table) 06/21/23 06/21/23 Range/Units 09:03 23:59 Procalcitonin 1.00 H (0.02-0.09) ng/mL Urine Protein 1+ H (Negative) Hyaline Casts 4 H (0-2) /lpf Urine Mucus Rare H (None) /hpf
[2023-06-22] MEDS: SODIUM CHLORIDE 0.9% 1,000 ML IV SCH ×2 (16:02→16:04)
[2023-06-22] MEDS: PANTOPRAZOLE 40 MG TABLET PO SCH (16:16)
[2023-06-22] MEDS: ATORVASTATIN 10 MG TAB PO SCH (21:50)
[2023-06-22] MEDS: TAMSULOSIN 0.4 MG CAP.ER.24H PO SCH (21:50)
[2023-06-23] MEDS: ATROPINE OPHTH SOLN 1% 5ML BTL SUBLINGUAL SCH ×2 (07:29→16:14)
[2023-06-23] MEDS ORDERED: ALBUTEROL NEBULIZED 2.5 MG/3 ML INHALATION PRN (08:00)
[2023-06-23] MEDS: AZITHROMYCIN 500 MG in SODIUM CHLORIDE 0.9% 250 ML IVPB SCH (10:10)
[2023-06-23] MEDS: PANTOPRAZOLE 40 MG TABLET PO SCH (16:13)
[2023-06-23] MEDS ORDERED: bisacodyL 10 MG SUPP RECTAL PRN (18:34)
--- NOTE | 2023-06-23 18:36 | P.PN ---
Progress Note - Text Progress Note Date: 06/23/23 Patient is a 87-year-old male with a past medical history of hypertension, hyperlipidemia, history of CVA with right-sided paralysis and speech problems currently wheelchair and dementia, anxiety and prior history of smoking and also right carotid endarterectomy was brought to the hospital for possible GI bleed. According to his caregiver patient had vomiting dark-colored about a few days ago and concern for blood in the stool. Patient was sent from [facility]. Otherwise patient is a poor historian and unable to provide any history. Due to underlying dementia. Chest x-ray showed subtle patchy and interstitial densities right upper lobe and retrocardiac region. Aeration is overall improving. Patchy focal right apical opacity is similar. Laboratory data showed WBC 15.3 hemoglobin 14.4 and platelets 167 Sodium 140 potassium 4.6 chloride 104 bicarb is 23 BUN 37 creatinine 0.83 and blood sugar 148 magnesium 1.7 and total bili 1.5 during use of activated troponin x 1 negative and urinalysis showed 1+ protein leukocyte esterase negative and RBCs 2 WBCs 1 Influenza A, B, RSV and COVID-19 PCR not detected. 06/22/2023 Patient is seen in follow-up today currently resides at [facility] with continued care with plans on returning there. Patient sent here with concerns of possible pneumonia with possible aspiration. Speech therapy consulted and pending at this time. Per nursing staff patient ate all of breakfast with no difficulties and is maintained on aspiration precautions. Patient also continued on antibiotics in the form of Zithromax and ceftriaxone. Pro-calcitonin is 1.0 and white count is trending down at 11.25 today. Patient remains afebrile and urinalysis was negative other testing including influenza, Legionella, RSV and Covid were all negative. Will await speech therapy evaluation and appreciate input and recommendations. Patient is currently on 2 L and reports he wears oxygen outpatient. Will discuss further with social work regarding discharge planning once evaluated by speech. June 23: Patient answering simple questions. Has chronic right hand contracture. Discussed with the nurse. Eating fair. No choking Past medical history to include: Hypertension, hyperlipidemia, BPH, moderate cognitive impairment from prior stroke, GERD, right-sided weakness from prior stroke, dysarthria, chronic medical debility using a wheelchair, Harris's esophagus Social history: . smoked for about 35 years, cigars. Stop smoking about 24 years ago. One drink at night. Uses a wheelchair and also able to walk slowly PHYSICAL EXAMINATION: VITAL SIGNS: 87.7, sick to 6, 18, 172/87, 92% on 5 L GENERAL: Reclining in bed, comfortable EYES: Pupils equal. Conjunctiva normal. HEENT: External appearance of nose and ears normal, oral cavity grossly normal. NECK: JVD not raised; masses not palpable. HEART: First and second heart sounds are normal; no edema. LUNGS: Respiratory rate normal; occasional crackle ABDOMEN: Soft, nontender, liver spleen not palpable, no masses palpable. PSYCH: Able to answer very simple questions. MUSCULOSKELETAL:No Clubbing/cyanosis;muscles-grossly intact. Evidence of OA NEUROLOGICAL: . Slight dysarthria. Right arm weakness with hand contracture. Mild right leg weakness. INVESTIGATIONS, reviewed in the clinical context: June 22: White count 11.2 hemoglobin 12.3 platelets 154 sodium 142 potassium 3.9 creatinine 0.8 Procalcitonin 1.0 Checks x-ray: Patchy densities, right upper lobe and retrocardiac Assessment: Right upper lobe pneumonia with chest x-ray showed patchy and interstitial densities. Possible aspiration pneumonia -Ceftriaxone Sepsis secondary to above. IV ceftriaxone Coffee-ground emesis. Likely gastritis. Hemoglobin 14.4 on admission. -Tolerating diet on PPI - severe cognitive impairment from advanced dementia - Harris's esophagus PPI Essential Hypertension -Amlodipine -Hyperlipidemia Lipitor GERD -PPI BPH -Flomax -Right-sided paresis with right arm contracture with right arm weakness more than the Márquez from prior stroke and chronic dysarthria -Chronic medical debility Can walk some, normally uses a wheelchair
[2023-06-23] MEDS: PSYLLIUM HUSK 100% 6 GM PACKET PO SCH ×2 (18:55→19:11)
[2023-06-23] MEDS: amLODIPine 5 MG TAB PO SCH (18:55)
[2023-06-23] MEDS: ENOXAPARIN 40 MG/0.4 ML SYRINGE SQ SCH (19:50)
[2023-06-23] MEDS: TAMSULOSIN 0.4 MG CAP.ER.24H PO SCH (20:00)
[2023-06-23] MEDS: ATORVASTATIN 10 MG TAB PO SCH (20:00)
[2023-06-24] MEDS ORDERED: NON FORMULARY DRUG (Ensure Enlive 237 ML) PO SCH (10:00)
[2023-06-24] MEDS: PSYLLIUM HUSK 100% 6 GM PACKET PO SCH ×2 (10:10→17:44)
[2023-06-24] MEDS: amLODIPine 5 MG TAB PO SCH (10:11)
[2023-06-24] MEDS: AMMONIUM LACTATE 12% CREAM 140 GM TUBE TOPICAL SCH (10:11)
[2023-06-24] MEDS: ENOXAPARIN 40 MG/0.4 ML SYRINGE SQ SCH (10:11)
[2023-06-24] MEDS: ATROPINE OPHTH SOLN 1% 5ML BTL SUBLINGUAL SCH ×2 (10:12→17:44)
--- NOTE | 2023-06-24 12:36 | P.PN ---
Progress Note - Text Progress Note Date: 06/24/23 Patient is a 87-year-old male with a past medical history of hypertension, hyperlipidemia, history of CVA with right-sided paralysis and speech problems currently wheelchair and dementia, anxiety and prior history of smoking and also right carotid endarterectomy was brought to the hospital for possible GI bleed. According to his caregiver patient had vomiting dark-colored about a few days ago and concern for blood in the stool. Patient was sent from [facility]. Otherwise patient is a poor historian and unable to provide any history. Due to underlying dementia. Chest x-ray showed subtle patchy and interstitial densities right upper lobe and retrocardiac region. Aeration is overall improving. Patchy focal right apical opacity is similar. Laboratory data showed WBC 15.3 hemoglobin 14.4 and platelets 167 Sodium 140 potassium 4.6 chloride 104 bicarb is 23 BUN 37 creatinine 0.83 and blood sugar 148 magnesium 1.7 and total bili 1.5 during use of activated troponin x 1 negative and urinalysis showed 1+ protein leukocyte esterase negative and RBCs 2 WBCs 1 Influenza A, B, RSV and COVID-19 PCR not detected. 06/22/2023 Patient is seen in follow-up today currently resides at [facility] with continued care with plans on returning there. Patient sent here with concerns of possible pneumonia with possible aspiration. Speech therapy consulted and pending at this time. Per nursing staff patient ate all of breakfast with no difficulties and is maintained on aspiration precautions. Patient also continued on antibiotics in the form of Zithromax and ceftriaxone. Pro-calcitonin is 1.0 and white count is trending down at 11.25 today. Patient remains afebrile and urinalysis was negative other testing including influenza, Legionella, RSV and Covid were all negative. Will await speech therapy evaluation and appreciate input and recommendations. Patient is currently on 2 L and reports he wears oxygen outpatient. Will discuss further with social work regarding discharge planning once evaluated by speech. June 23: Patient answering simple questions. Has chronic right hand contracture. Discussed with the nurse. Eating fair. No choking June 24: Resting right. Comfortable. Eating well with assistance. On 4 L of nasal cannula. Incentive spirometry ordered. Active Medications Acetaminophen (Acetaminophen Tab 325 Mg Tab) 650 mg PO Q6H PRN PRN Reason: GENERAL DISCOMFORT Albuterol Sulfate (Albuterol Nebulized 2.5 Mg/3 Ml) 2.5 mg INHALATION RT-Q4H PRN PRN Reason: Shortness Of Breath Or Wheezing Last Admin: 06/23/23 08:06 Dose: 2.5 mg Amlodipine Besylate (Amlodipine 5 Mg Tab) 5 mg PO DAILY@0800 [facility] Last Admin: 06/24/23 10:11 Dose: 5 mg Atorvastatin Calcium (Atorvastatin 10 Mg Tab) 10 mg PO HS@2100 [facility] Last Admin: 06/23/23 20:00 Dose: 10 mg Atropine Sulfate (Atropine Ophth Soln 1% 5ml Btl) 2 drops SUBLINGUAL BID@0 800,1700 [facility] Last Admin: 06/24/23 10:12 Dose: 2 drops Bisacodyl (Bisacodyl 10 Mg Supp) 10 mg RECTAL DAILY PRN PRN Reason: Constipation Enoxaparin Sodium (Enoxaparin 40 Mg/0.4 Ml Syringe) 40 mg SQ DAILY [facility] Last Admin: 06/24/23 10:11 Dose: 40 mg Ceftriaxone Sodium 2 gm/ (Sodium Chloride) 50 mls @ 100 mls/hr IVPB Q24HR [facility]; Protocol Stop: 06/25/23 09:29 Last Admin: 06/24/23 10:11 Dose: 100 mls/hr Lactic Acid (Ammonium Lactate 12% Cream 140 Gm Tube) 1 applic TOPICAL DAILY@0800 [facility]; Protocol Last Admin: 06/24/23 10:11 Dose: 1 applic Magnesium Hydroxide (Magnesium Hydroxide 2,400 Mg/30 Ml Cup) 2,400 mg PO Q48H PRN PRN Reason: Constipation Miscellaneous Information (Pneumonia Protocol Utilized 1 Each Misc) 1 each PO ONCE PRN PRN Reason: Per Protocol Multivitamins (Multivitamins, Thera 1 Each Tab) 1 each PO DAILY@1700 [facility] Pantoprazole Sodium (Pantoprazole 40 Mg Tablet) 40 mg PO DAILY@1700 [facility] Last Admin: 06/23/23 16:13 Dose: 40 mg Psyllium Hydrophilic Mucilloid (Psyllium Husk 100% 6 Gm Packet) 6 gm PO BID@0800,1700 [facility] Last Admin: 06/24/23 10:10 Dose: 6 gm Tamsulosin HCl (Tamsulosin 0.4 Mg Cap.Er.24h) 0.4 mg PO HS@2100 [facility] Last Admin: 06/23/23 20:00 Dose: 0.4 mg Past medical history to include: Hypertension, hyperlipidemia, BPH, moderate cognitive impairment from prior stroke, GERD, right-sided weakness from prior stroke, dysarthria, chronic medical debility using a wheelchair, Harris's esophagus Social history: . smoked for about 35 years, cigars. Stop smoking about 24 years ago. One drink at night. Uses a wheelchair and also able to walk slowly PHYSICAL EXAMINATION: VITAL SIGNS: 98, 83, 17, 152/73, 91% on 4 L GENERAL: Reclining in bed, comfortable EYES: Pupils equal. Conjunctiva normal. HEENT: External appearance of nose and ears normal, oral cavity grossly normal. NECK: JVD not raised; masses not palpable. HEART: First and second heart sounds are normal; no edema. LUNGS: Respiratory rate normal; occasional crackle ABDOMEN: Soft, nontender, liver spleen not palpable, no masses palpable. PSYCH: Able to answer very simple questions. MUSCULOSKELETAL:No Clubbing/cyanosis;muscles-grossly intact. Evidence of OA NEUROLOGICAL: . Slight dysarthria. Right arm weakness with hand contracture. Mild right leg weakness. INVESTIGATIONS, reviewed in the clinical context: June 22: White count 11.2 hemoglobin 12.3 platelets 154 sodium 142 potassium 3.9 creatinine 0.8 Procalcitonin 1.0 Checks x-ray: Patchy densities, right upper lobe and retrocardiac Assessment: Right upper lobe pneumonia with chest x-ray showed patchy and interstitial densities. Possible aspiration pneumonia -Ceftriaxone Sepsis secondary to above. IV ceftriaxone Coffee-ground emesis. Likely gastritis. Hemoglobin 14.4 on admission. -Tolerating diet on PPI - severe cognitive impairment from advanced dementia - Harris's esophagus PPI Essential Hypertension -Amlodipine -Hyperlipidemia Lipitor GERD -PPI BPH -Flomax -Right-sided paresis with right arm contracture with right arm weakness more than the Márquez from prior stroke and chronic dysarthria -Chronic medical debility Can walk some, normally uses a wheelchair Incentive spirometry. Other medications to continue.
[2023-06-24] MEDS: PANTOPRAZOLE 40 MG TABLET PO SCH (17:44)
[2023-06-24] MEDS: MULTIVITAMINS, THERA 1 EACH TAB PO SCH (17:44)
[2023-06-24] MEDS: CEFDINIR 300 MG CAP PO SCH (21:13)
[2023-06-24] MEDS: ATORVASTATIN 10 MG TAB PO SCH (21:13)
[2023-06-24] MEDS: TAMSULOSIN 0.4 MG CAP.ER.24H PO SCH (21:13)
[2023-06-25] MEDS: AMMONIUM LACTATE 12% CREAM 140 GM TUBE TOPICAL SCH (08:50)
[2023-06-25] MEDS: PSYLLIUM HUSK 100% 6 GM PACKET PO SCH ×2 (08:50→15:44)
[2023-06-25] MEDS: CEFDINIR 300 MG CAP PO SCH ×2 (08:50→20:33)
[2023-06-25] MEDS: amLODIPine 5 MG TAB PO SCH (08:50)
[2023-06-25] MEDS: ENOXAPARIN 40 MG/0.4 ML SYRINGE SQ SCH (08:50)
[2023-06-25] MEDS: ATROPINE OPHTH SOLN 1% 5ML BTL SUBLINGUAL SCH ×2 (08:50→15:44)
--- NOTE | 2023-06-25 15:02 | P.PN ---
Progress Note - Text Progress Note Date: 06/25/23 Patient is a 87-year-old male with a past medical history of hypertension, hyperlipidemia, history of CVA with right-sided paralysis and speech problems currently wheelchair and dementia, anxiety and prior history of smoking and also right carotid endarterectomy was brought to the hospital for possible GI bleed. According to his caregiver patient had vomiting dark-colored about a few days ago and concern for blood in the stool. Patient was sent from [facility]. Otherwise patient is a poor historian and unable to provide any history. Due to underlying dementia. Chest x-ray showed subtle patchy and interstitial densities right upper lobe and retrocardiac region. Aeration is overall improving. Patchy focal right apical opacity is similar. Laboratory data showed WBC 15.3 hemoglobin 14.4 and platelets 167 Sodium 140 potassium 4.6 chloride 104 bicarb is 23 BUN 37 creatinine 0.83 and blood sugar 148 magnesium 1.7 and total bili 1.5 during use of activated troponin x 1 negative and urinalysis showed 1+ protein leukocyte esterase negative and RBCs 2 WBCs 1 Influenza A, B, RSV and COVID-19 PCR not detected. 06/22/2023 Patient is seen in follow-up today currently resides at [facility] with continued care with plans on returning there. Patient sent here with concerns of possible pneumonia with possible aspiration. Speech therapy consulted and pending at this time. Per nursing staff patient ate all of breakfast with no difficulties and is maintained on aspiration precautions. Patient also continued on antibiotics in the form of Zithromax and ceftriaxone. Pro-calcitonin is 1.0 and white count is trending down at 11.25 today. Patient remains afebrile and urinalysis was negative other testing including influenza, Legionella, RSV and Covid were all negative. Will await speech therapy evaluation and appreciate input and recommendations. Patient is currently on 2 L and reports he wears oxygen outpatient. Will discuss further with social work regarding discharge planning once evaluated by speech. June 23: Patient answering simple questions. Has chronic right hand contracture. Discussed with the nurse. Eating fair. No choking June 24: Resting right. Comfortable. Eating well with assistance. On 4 L of nasal cannula. Incentive spirometry ordered. Similar 2022: Eating fair. 2 L nasal cannula. Change to to oral antibiotics/Omnicef. Plan for [facility] tomorrow. Active Medications Acetaminophen (Acetaminophen Tab 325 Mg Tab) 650 mg PO Q6H PRN PRN Reason: GENERAL DISCOMFORT Albuterol Sulfate (Albuterol Nebulized 2.5 Mg/3 Ml) 2.5 mg INHALATION RT-Q4H PRN PRN Reason: Shortness Of Breath Or Wheezing Last Admin: 06/23/23 08:06 Dose: 2.5 mg Amlodipine Besylate (Amlodipine 5 Mg Tab) 5 mg PO DAILY@0800 [facility] Last Admin: 06/25/23 08:50 Dose: 5 mg Atorvastatin Calcium (Atorvastatin 10 Mg Tab) 10 mg PO HS@2100 [facility] Last Admin: 06/24/23 21:13 Dose: 10 mg Atropine Sulfate (Atropine Ophth Soln 1% 5ml Btl) 2 drops SUBLINGUAL BID@0800,1700 [facility] Last Admin: 06/25/23 08:50 Dose: 2 drops Bisacodyl (Bisacodyl 10 Mg Supp) 10 mg RECTAL DAILY PRN PRN Reason: Constipation Cefdinir (Cefdinir 300 Mg Cap) 300 mg PO BID [facility]; Protocol Last Admin: 06/25/23 08:50 Dose: 300 mg Enoxaparin Sodium (Enoxaparin 40 Mg/0.4 Ml Syringe) 40 mg SQ DAILY [facility] Last Admin: 06/25/23 08:50 Dose: 40 mg Lactic Acid (Ammonium Lactate 12% Cream 140 Gm Tube) 1 applic TOPICAL DAILY@0800 [facility]; Protocol Last Admin: 06/25/23 08:50 Dose: 1 applic Magnesium Hydroxide (Magnesium Hydroxide 2,400 Mg/30 Ml Cup) 2,400 mg PO Q48H PRN PRN Reason: Constipation Miscellaneous Information (Pneumonia Protocol Utilized 1 Each Misc) 1 each PO ONCE PRN PRN Reason: Per Protocol Multivitamins (Multivitamins, Thera 1 Each Tab) 1 each PO DAILY@1700 [facility] Last Admin: 06/24/23 17:44 Dose: 1 each Pantoprazole Sodium (Pantoprazole 40 Mg Tablet) 40 mg PO DAILY@1700 [facility] Last Admin: 06/24/23 17:44 Dose: 40 mg Psyllium Hydrophilic Mucilloid (Psyllium Husk 100% 6 Gm Packet) 6 gm PO BID@0800,1700 [facility] Last Admin: 06/25/23 08:50 Dose: 6 gm Tamsulosin HCl (Tamsulosin 0.4 Mg Cap.Er.24h) 0.4 mg PO HS@2100 [facility] Last Admin: 06/24/23 21:13 Dose: 0.4 mg Past medical history to include: Hypertension, hyperlipidemia, BPH, moderate cognitive impairment from prior stroke, GERD, right-sided weakness from prior stroke, dysarthria, chronic medical debility using a wheelchair, Harris's esophagus Social history: . smoked for about 35 years, cigars. Stop smoking about 24 years ago. One drink at night. Uses a wheelchair and also able to walk slowly PHYSICAL EXAMINATION: VITAL SIGNS: 98, 95, 18, 129/82, 92% on 2 L GENERAL: Reclining in bed, comfortable EYES: Pupils equal. Conjunctiva normal. HEENT: External appearance of nose and ears normal, oral cavity grossly normal. NECK: JVD not raised; masses not palpable. HEART: First and second heart sounds are normal; no edema. LUNGS: Respiratory rate normal; occasional crackle ABDOMEN: Soft, nontender, liver spleen not palpable, no masses palpable. PSYCH: Able to answer very simple questions. MUSCULOSKELETAL:No Clubbing/cyanosis;muscles-grossly intact. Evidence of OA NEUROLOGICAL: . Slight dysarthria. Right arm weakness with hand contracture. Mild right leg weakness. INVESTIGATIONS, reviewed in the clinical context: June 25: Procalcitonin 0.26 June 22: White count 11.2 hemoglobin 12.3 platelets 154 sodium 142 potassium 3.9 creatinine 0.8 Procalcitonin 1.0 Checks x-ray: Patchy densities, right upper lobe and retrocardiac Assessment: Right upper lobe pneumonia with chest x-ray showed patchy and interstitial densities. Possible aspiration pneumonia: Improving -Ceftriaxone. Changed over to oral Omnicef Sepsis secondary to above.: Better IV ceftriaxone Coffee-ground emesis. Likely gastritis. Hemoglobin 14.4 on admission. -Tolerating diet on PPI - severe cognitive impairment from advanced dementia - Harris's esophagus PPI Essential Hypertension -Amlodipine -Hyperlipidemia Lipitor GERD -PPI BPH -Flomax -Right-sided paresis with right arm contracture with right arm weakness more than the Márquez from prior stroke and chronic dysarthria -Chronic medical debility Can walk some, normally uses a wheelchair -Disposition: Long-term@[facility] Doing better. Plan for discharge to [facility] tomorrow
[2023-06-25] MEDS: MULTIVITAMINS, THERA 1 EACH TAB PO SCH (15:43)
[2023-06-25] MEDS: PANTOPRAZOLE 40 MG TABLET PO SCH (15:43)
[2023-06-25] MEDS: ATORVASTATIN 10 MG TAB PO SCH (20:33)
[2023-06-25] MEDS: TAMSULOSIN 0.4 MG CAP.ER.24H PO SCH (20:33)
[2023-06-26 02:57] VITALS: RESP 17
[2023-06-26] MEDS: ENOXAPARIN 40 MG/0.4 ML SYRINGE SQ SCH (08:51)
[2023-06-26] MEDS: AMMONIUM LACTATE 12% CREAM 140 GM TUBE TOPICAL SCH (08:51)
[2023-06-26] MEDS: CEFDINIR 300 MG CAP PO SCH (08:51)
[2023-06-26] MEDS: amLODIPine 5 MG TAB PO SCH (08:51)
[2023-06-26] MEDS: PSYLLIUM HUSK 100% 6 GM PACKET PO SCH ×2 (08:51→17:29)
[2023-06-26] MEDS: ATROPINE OPHTH SOLN 1% 5ML BTL SUBLINGUAL SCH ×2 (08:51→17:30)
--- NOTE | 2023-06-26 12:08 | CDI ---
Documentation Clarification Form Date: From: Elysia Whitlock Phone: [phone] Admit Date: 06/21/2023 12:27:00 PM Patient Name: Fernando Harrison Visit Number: [id number] Discharge Date: ATTENTION: The Clinical Documentation Specialists (CDI) and [facility] Coding Staff appreciate your assistance in clarifying documentation. Please respond to the clarification below the line at the bottom and electronically sign. The CDI & [facility] Coding staff will review the response and follow-up if needed. Please note: Queries are made part of the Legal Health Record. If you have any questions, please contact the author of this message via ITS. Dr. Sidney Fortune Your patient has Hypoxia noted in the ED Note dated 06/21. Based on this information and the findings below, is there an additional diagnosis that is clinically appropriate for this patient? History/Risk Factors: "87-year-old male with a past medical history of hypertension, hyperlipidemia, history of CVA with right-sided paralysis and speech problems currently wheelchair and dementia, anxiety and prior history of smoking and also right carotid endarterectomy was brought to the hospital for possible GI bleed." - Per Medical H&P on 06/21 Tobacco use: history of Home oxygen: "reports he wears oxygen outpatient" - Per Progress Note on 06/22 Clinical Indicators: Vital signs / Pulse oximetry: 06/21 - Temp. 100.9, HR 111, RR 20, BP 140/84, 92% on 2L 06/25 - Temp. 98.0, HR 89, RR 18, BP 123/59, 91% on 2L Lung/Breathing assessment: "Bibasilar diminished air entry. No wheezing. No rhonchi." - Per Medical H&P on 06/21 Treatment: Albuterol 2.5mg Q4H PRN O2 nasal cannula Is there an additional diagnosis that is clinically appropriate for this patient? [ ] Chronic Respiratory Failure [ + ] Other Diagnosis, please specify __acute hypoxic respiratory failure secondary to pneumonia___ [ ] Unable to determine MTDD
--- NOTE | 2023-06-26 14:01 | P.DS ---
Providers Date of admission: 06/21/23 12:27 Expected date of discharge: 06/26/23 Attending physician: Sidney Fortune Primary care physician: Jeffrey Bronson [facility] Course: Patient is a 87-year-old male with a past medical history of hypertension, hyperlipidemia, history of CVA with right-sided paralysis and speech problems currently wheelchair and dementia, anxiety and prior history of smoking and also right carotid endarterectomy was brought to the hospital for possible GI bleed. According to his caregiver patient had vomiting dark-colored about a few days ago and concern for blood in the stool. Patient was sent from [facility]. Otherwise patient is a poor historian and unable to provide any history. Due to underlying dementia. Chest x-ray showed subtle patchy and interstitial densities right upper lobe and retrocardiac region. Aeration is overall improving. Patchy focal right apical opacity is similar. Laboratory data showed WBC 15.3 hemoglobin 14.4 and platelets 167 Sodium 140 potassium 4.6 chloride 104 bicarb is 23 BUN 37 creatinine 0.83 and blood sugar 148 magnesium 1.7 and total bili 1.5 during use of activated troponin x 1 negative and urinalysis showed 1+ protein leukocyte esterase negative and RBCs 2 WBCs 1 Influenza A, B, RSV and COVID-19 PCR not detected. 06/22/2023 Patient is seen in follow-up today currently resides at [facility] with continued care with plans on returning there. Patient sent here with concerns of possible pneumonia with possible aspiration. Speech therapy consulted and pending at this time. Per nursing staff patient ate all of breakfast with no difficulties and is maintained on aspiration precautions. Patient also continued on antibiotics in the form of Zithromax and ceftriaxone. Pro-calcitonin is 1.0 and white count is trending down at 11.25 today. Patient remains afebrile and urinalysis was negative other testing including influenza, Legionella, RSV and Covid were all negative. Will await speech therapy evaluation and appreciate input and recommendations. Patient is currently on 2 L and reports he wears oxygen outpatient. Will discuss further with social work regarding discharge planning once evaluated by speech. June 23: Patient answering simple questions. Has chronic right hand contracture. Discussed with the nurse. Eating fair. No choking June 24: Resting right. Comfortable. Eating well with assistance. On 4 L of nasal cannula. Incentive spirometry ordered. June 25 2023: Shubham graner. 2 L nasal cannula. Change to to oral antibiotics/Omnicef. Plan for [facility] tomorrow. 06/26/2023: Sitting up in bed. Comfortable. Eating fair. Antibiotics have been discontinued. Patient oxygen improves intermittently with incentive spirometry. To continue with the same. Discussed with social media assistant to return to [facility]. Patient's one set of blood culture positive for gram-positive cocci on June 21 out of 2 sets, felt to be contaminant. Clinically patient is much better. Past medical history to include: Hypertension, hyperlipidemia, BPH, moderate cognitive impairment from prior stroke, GERD, right-sided weakness from prior stroke, dysarthria, chronic medical debility using a wheelchair, Harris's esophagus Social history: . smoked for about 35 years, cigars. Stop smoking about 24 years ago. One drink at night. Uses a wheelchair and also able to walk slowly PHYSICAL EXAMINATION: VITAL SIGNS: 97.4, 82, 17, 124/70, 93% on room air GENERAL: Reclining in bed, comfortable EYES: Pupils equal. Conjunctiva normal. HEENT: External appearance of nose and ears normal, oral cavity grossly normal. NECK: JVD not raised; masses not palpable. HEART: First and second heart sounds are normal; no edema. LUNGS: Respiratory rate normal; his breath sound ABDOMEN: Soft, nontender, liver spleen not palpable, no masses palpable. PSYCH: Able to answer very simple questions. MUSCULOSKELETAL:No Clubbing/cyanosis;muscles-grossly intact. Evidence of OA NEUROLOGICAL: . Slight dysarthria. Right arm weakness with hand contracture. Mild right leg weakness. INVESTIGATIONS, reviewed in the clinical context: June 25: Procalcitonin 0.26 June 22: White count 11.2 hemoglobin 12.3 platelets 154 sodium 142 potassium 3.9 creatinine 0.8 Procalcitonin 1.0 Checks x-ray: Patchy densities, right upper lobe and retrocardiac Assessment: Right upper lobe pneumonia with chest x-ray showed patchy and interstitial densities. Possible aspiration pneumonia: Improved -Ceftriaxone. Changed over to oral Omnicef-completed course Sepsis secondary to above.: Improved IV ceftriaxone -One set of blood culture positive out of 2 on June 21. [place] to be contaminant Coffee-ground emesis. Likely gastritis. Hemoglobin 14.4 on admission. -Tolerating diet on PPI - severe cognitive impairment from advanced dementia - Harris's esophagus PPI Essential Hypertension -Amlodipine -Hyperlipidemia Lipitor GERD -PPI BPH -Flomax -Right-sided paresis with right arm contracture with right arm weakness more than the Márquez from prior stroke and chronic dysarthria -Chronic medical debility Can walk some, normally uses a wheelchair Disposition: [facility] Plan - Discharge Summary Discharge Rx Participant: No New Discharge Prescriptions: Continue amLODIPine [Norvasc] 5 mg PO DAILY@0800 Tamsulosin [Flomax] 0.4 mg PO HS@2100 Atorvastatin [Lipitor] 10 mg PO HS@2100 Cholecalciferol (Vitamin D3) [Vitamin D3 (5000 Iu)] 125 mcg PO DAILY@1700 Ketoconazole 2% Shampoo [Nizoral] 1 applic TOPICAL DIRECTED Albuterol Inhaler [Ventolin Hfa Inhaler] 2 puff INHALATION RT-Q4H PRN PRN Reason: Shortness Of Breath Omeprazole 40 mg PO DAILY@1700 Ammonium Lactate Cream [Lac-Hydrin 12% Cream] 1 applic TOPICAL DAILY@0800 Triamcinolone 0.1% Cream [Kenalog 0.1% Cream] 1 applicatio TOPICAL BID PRN PRN Reason: ECZEMA/ITCHING Magnesium Hydroxide [Milk of Magnesia Concentrate] 7,200 mg PO Q48H PRN PRN Reason: Constipation guaiFENesin [guaiFENesin Oral Solution] 200 mg PO Q4H PRN PRN Reason: Cough EPINEPHrine (Auto Inject) [Epipen] 0.3 mg IM ONCE PRN PRN Reason: Anaphylaxis Ensure Enlive 237 ml PO BID@1000,1400 Psyllium Husk 100% [Metamucil Packet] 6 gm PO BID@0800,1700 Niacinamide 500 mg PO BID@0800,1700 bisacodyL [Dulcolax] 10 mg RECTAL DAILY PRN PRN Reason: Constipation Na Phos,M-B/Na Phos,Di-Ba [Fleet Adult] 133 ml RECTAL DAILY PRN PRN Reason: Constipation Acetaminophen [Tylenol 8 Hour] 650 mg PO Q4H PRN PRN Reason: GENERAL DISCOMFORT Atropine Sulfate/Pf [Atropine 1% Eye Drops] 2 drop MUCOUS MEM BID@0800,1700 Multivitamins, Thera [Multivitamin (formulary)] 1 tab PO DAILY@1700 Discharge Medication List Atorvastatin [Lipitor] 10 mg PO HS@2100 07/09/18 [History] Tamsulosin [Flomax] 0.4 mg PO HS@2100 07/09/18 [History] amLODIPine [Norvasc] 5 mg PO DAILY@0800 07/09/18 [History] Cholecalciferol (Vitamin D3) [Vitamin D3 (5000 Iu)] 125 mcg PO DAILY@1700 10/03/20 [History] Ketoconazole 2% Shampoo [Nizoral] 1 applic TOPICAL DIRECTED 05/11/21 [History] Psyllium Husk 100% [Metamucil Packet] 6 gm PO BID@0800,1700 05/11/21 [History] Albuterol Inhaler [Ventolin Hfa Inhaler] 2 puff INHALATION RT-Q4H PRN 12/04/21 [History] Ammonium Lactate Cream [Lac-Hydrin 12% Cream] 1 applic TOPICAL DAILY@0800 12/04/21 [History] Niacinamide 500 mg PO BID@0800,1700 12/04/21 [History] Omeprazole 40 mg PO DAILY@17012/04/21 [History] Acetaminophen [Tylenol 8 Hour] 650 mg PO Q4H PRN 06/21/23 [History] Atropine Sulfate/Pf [Atropine 1% Eye Drops] 2 drop MUCOUS MEM BID@0800,1700 06/21/23 [History] EPINEPHrine (Auto Inject) [Epipen] 0.3 mg IM ONCE PRN 06/21/23 [History] Ensure Enlive 237 ml PO BID@1000,1400 06/21/23 [History] Magnesium Hydroxide [Milk of Magnesia Concentrate] 7,200 mg PO Q48H PRN 06/21/23 [History] Multivitamins, Thera [Multivitamin (formulary)] 1 tab PO DAILY@1700 06/21/23 [History] Na Phos,M-B/Na Phos,Di-Ba [Fleet Adult] 133 ml RECTAL DAILY PRN 06/21/23 [History] Triamcinolone 0.1% Cream [Kenalog 0.1% Cream] 1 applicatio TOPICAL BID PRN 06/21/23 [History] bisacodyL [Dulcolax] 10 mg RECTAL DAILY PRN 06/21/23 [History] guaiFENesin [guaiFENesin Oral Solution] 200 mg PO Q4H PRN 06/21/23 [History] Follow up Appointment(s)/Referral(s): Jeffrey Balbuena DO [Primary Care Provider] - 1-2 days Patient Instructions/Handouts: Community Acquired Pneumonia (DC)
[2023-06-26 14:37] VITALS: BP 167/98; PULSE 75; TEMP 97.7
[2023-06-26] MEDS: MULTIVITAMINS, THERA 1 EACH TAB PO SCH (17:29)
[2023-06-26] MEDS: PANTOPRAZOLE 40 MG TABLET PO SCH (17:29)
== END 2023-06-26 18:41 | DRG 871 ==
LOC: EC 07:19 → 4SSUR 12:27
PROVIDERS: ADMIT Hospitalist; ATTEND Hospitalist
DX: A41.9 Sepsis, unspecified organism (principal); J18.9 Pneumonia, unspecified organism; J96.01 Acute respiratory failure with hypoxia; F03.94 Unspecified dementia, unspecified severity, with anxiety; I69.351 Hemiplegia and hemiparesis following cerebral infarction affecting right dominant side; I69.322 Dysarthria following cerebral infarction; E78.5 Hyperlipidemia, unspecified; E86.0 Dehydration; I10 Essential (primary) hypertension; K21.9 Gastro-esophageal reflux disease without esophagitis; K22.70 Barrett's esophagus without dysplasia; K29.70 Gastritis, unspecified, without bleeding; K44.9 Diaphragmatic hernia without obstruction or gangrene; L30.9 Dermatitis, unspecified; K59.00 Constipation, unspecified; M24.541 Contracture, right hand; N40.0 Benign prostatic hyperplasia without lower urinary tract symptoms; Z79.899 Other long term (current) drug therapy; Z87.891 Personal history of nicotine dependence; Z88.0 Allergy status to penicillin
CPT/HCPCS: 36415; 71045; 80048; 80053; 81001; 83605; 83735; 84145; 84484; 85025; 85610; 85730; 86850; 86900; 86901; 87040; 87449; 87636; 94640; 94760; 96361; 96365; 96366; 96367; 96375; 99291

== ENCOUNTER 2023-07-10 18:57 | Inpatient (IN) | payer MEDICARE, OTHER ==
--- NOTE | 2023-07-10 19:12 | ED ---
General Adult HPI - General Chief complaint: Weakness Stated complaint: Altered Mental Status Time Seen by Provider: 07/10/23 18:58 Source: patient, EMS, RN notes reviewed Mode of arrival: EMS Limitations: altered mental status - History of Present Illness Initial comments: Patient is an 87-year-old male presenting to the emergency department concerns f or increased weakness. Patient does present from nursing facility. History is very limited. Patient states he feels fine and has no complaints. Transfer paperwork shows patient has had increased weakness. Patient does have history of previous right-sided weakness from previous stroke/aneurysm. - Related Data Home Medications Medication Instructions Recorded Confirmed Atorvastatin [Lipitor] 10 mg PO HS@209907/09/18 07/10/23 Tamsulosin [Flomax] 0.4 mg PO HS@209907/09/18 07/10/23 amLODIPine [Norvasc] 5 mg PO DAILY@0800 07/09/18 07/10/23 Cholecalciferol (Vitamin D3) 125 mcg PO DAILY@169910/03/20 07/10/23 [Vitamin D3 (5000 Iu)] Ketoconazole 2% Shampoo [Nizoral] 1 applic TOPICAL DIRECTED 05/11/21 07/10/23 Psyllium Husk 100% [Metamucil 6 gm PO BID@0800,169905/11/21 07/10/23 Packet] Albuterol Inhaler [Ventolin Hfa 2 puff INHALATION RT-Q4H PRN 12/04/21 07/10/23 Inhaler] Ammonium Lactate Cream [Lac-Hydrin 1 applic TOPICAL DAILY@0812/04/21 07/10/23 12% Cream] Niacinamide 500 mg PO BID@0800,0 12/04/21 07/10/23 Omeprazole 40 mg PO DAILY@169912/04/21 07/10/23 Acetaminophen [Tylenol 8 Hour] 650 mg PO Q4H PRN 06/21/23 07/10/23 Atropine Sulfate/Pf [Atropine 1% 2 drop SUBLINGUAL BID@0800,17006/21/23 0103/25 Eye Drops] EPINEPHrine (Auto Inject) [Epipen] 0.3 mg IM ONCE PRN 06/21/23 07/10/23 Multivitamins, Thera [Multivitamin 1 tab PO DAILY@1700 06/21/23 07/10/23 (formulary)] Na Phos,M-B/Na Phos,Di-Ba [Fleet 133 ml RECTAL DAILY PRN 06/21/23 07/10/23 Adult] Triamcinolone 0.1% Cream [Kenalog 1 applic TOPICAL BID PRN 06/21/23 07/10/23 0.1% Cream] bisacodyL [Dulcolax] 10 mg RECTAL DAILY PRN 06/21/23 07/10/23 guaiFENesin [guaiFENesin Oral 200 mg PO Q4H PRN 06/21/23 07/10/23 Solution] Magnesium Hydroxide [Milk of 2,400 mg PO Q48H PRN 07/10/23 07/10/23 Magnesia] Allergies Allergy/AdvReac Type Severity Reaction Status Date / Time Penicillins Allergy Unknown Verified 07/10/23 19:47 Childhood Review of Systems ROS Statement: Those systems with pertinent positive or pertinent negative responses have been documented in the HPI. ROS Other: All systems not noted in ROS Statement are negative. 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, uses wheelchair, has memory prob lems, hx falls, HIATAL HERNIA, BARRETTS ESOPHAGUS, eczema, History of Any Multi-Drug Resistant Organisms: None Reported Past Surgical History: Adenoidectomy, Tonsillectomy Additional Past Surgical History / Comment(s): rt carotid endarterrectomy, brain surgery for aneurysm, feeding tube/later removed, Past Anesthesia/Blood Transfusion Reactions: No Reported Reaction Past Psychological History: Anxiety Smoking Status: Former smoker Past Alcohol Use History: Daily Past Drug Use History: None Reported - Past Family History Father History Unknown: Yes Mother Family Medical History: CVA/TIA, Dementia Additional Family Medical History / Comment(s): at age 94 or 95 General Exam Limitations: altered mental status, physical limitation General appearance: alert Head exam: Present: atraumatic Eye exam: Present: normal appearance, PERRL, EOMI ENT exam: Present: mucous membranes dry Neck exam: Present: normal inspection Respiratory exam: Present: rales Cardiovascular Exam: Present: regular rate, normal rhythm GI/Abdominal exam: Present: soft. Absent: tenderness Extremities exam: Present: other (Right arm contracted) Neurological exam: Present: alert, altered, other (Difficulty following commands. Right arm is contracted) Expanded Neurological exam: Present: protecting the airway, other (Difficulty following commands) Patient oriented to: Absent: person, place, time Motor strength exam: RUE: 2/1, LUE: 5, RLE: 3, LLE: 4 Eye Response: (3) open to voice Motor Response: (5) localizes to pain Verbal Response: (3) inappropriate words Psychiatric exam: Present: normal affect, normal mood Skin exam: Present: normal color Course Vital Signs 07/10/23 07/10/23 07/10/23 18:59 19:09 22:13 Temperature 98.3 F Pulse Rate 105 H 91 Respiratory 18 18 Rate Blood Pressure 139/101 159/75 Blood Pressure 159/75 [Left Arm] O2 Sat by Pulse 89 L 94 L Oximetry EKG Findings - EKG Results: EKG: interpreted by LINDA (Artifact present), sinus rhythm, normal axis, normal QRS, normal ST/T EKG shows: tachycardia Medical Decision Making - Medical Decision Making Was pt. sent in by a medical professional or institution (, PA, COATING MIXER, urgent care, hospital, or alf...) When possible be specific @ -Patient was sent in from nursing facility Did you speak to anyone other than the patient for history (EMS, parent, family, police, friend...)? What history was obtained from this source @ -EMS provides history of transport Did you review nursing and triage notes (agree or disagree)? Why? @ -I reviewed and agree with nursing and triage notes Were old charts reviewed (outside hosp., previous admission, EMS record, old EKG, old radiological studies, urgent care reports/EKG's, alf records)? Report findings @ -Previous chest x-ray reviewed. Differential Diagnosis (chest pain, altered mental status, abdominal pain women, abdominal pain men, vaginal bleeding, weakness, fever, dyspnea, syncope, headache, dizziness, GI bleed, back pain, seizure, CVA, palpatations, mental health, musculoskeletal)? @ -Differential Weakness: Hypoglycemia, shock, sepsis, hyponatremia, anemia, infection, DE, ETOH, adverse medicine reaction, overdose, stroke, this is not meant to be an all-inclusive list. EKG interpreted by me (3pts min.). @ -As above X-rays interpreted by me (1pt min.). @ -Chest x-ray shows left lower lobe infiltrate CT interpreted by me (1pt min.). @ -CT brain shows large old infarct. U/S interpreted by me (1pt. min.). @ -None done What testing was considered but not performed or refused? (CT, X-rays, U/S, labs)? Why? @ -None What meds were considered but not given or refused? Why? @ -None Did you discuss the management of the patient with other professionals (professionals i.e. , PA, COATING MIXER, lab, RT, psych nurse, social services specialist, physician specialist, teacher, targeting acquisition officer, adult protective caseworker)? Give summary @ -Case was discussed with Dr. Fortune, who will admit covered Dr. Balbuena Was smoking cessation discussed for >3mins.? @ -No Was critical care preformed (if so, how long)? @ -No Were there social determinants of health that impacted care today? How? (Homelessness, low income, unemployed, alcoholism, drug addiction, transportation, low edu. Level, literacy, decrease access to med. care, longterm, re hab)? @ -No Was there de-escalation of care discussed even if they declined (Discuss DNR or withdrawal of care, Hospice)? DNR status @ -No What co-morbidities impacted this encounter? (DM, HTN, Smoking, COPD, CAD, Cancer, CVA, ARF, Chemo, Hep., AIDS, mental health diagnosis, sleep apnea, morbid obesity)? @ -None Was patient admitted / discharged? Hospital course, mention meds given and route, prescriptions, significant lab abnormalities, going to OR and other pertinent info. @ -Patient reevaluated. Patient will be admitted. Patient does have RSV and pneumonia. Patient will be covered with antibiotics at this time for possible bacterial pneumonia. Blood culture and IV and IV antibiotics will be added. Lactic acid has arty been ran. Undiagnosed new problem with uncertain prognosis? @ -No Drug Therapy requiring intensive monitoring for toxicity (Heparin, Nitro, Insulin, Cardizem)? @ -No Were any procedures done? @ -No Diagnosis/symptom? @ -RSV, pneumonia, weakness Acute, or Chronic, or Acute on Chronic? @ -Acute, acute, acute Uncomplicated (without systemic symptoms) or Complicated (systemic symptoms)? @ -default Side effects of treatment? @ -No Exacerbation, Progression, or Severe Exacerbation? @ -No Poses a threat to life or bodily function? How? (Chest pain, USA, DE, pneumonia, PE, COPD, DKA, ARF, appy, cholecystitis, CVA, Diverticulitis, Homicidal, Suicidal, threat to staff... and all critical care pts) @ -No - Lab Data Result diagrams: 07/10/23 19:34 07/10/23 19:34 Lab Results 07/10/23 07/10/23 07/10/23 Range/Units 19:34 19:34 19:34 WBC 13.5 H (3.8-10.6) k/uL RBC 4.60 (4.30-5.90) m/uL Hgb 13.8 (13.0-17.5) gm/dL Hct 43.0 (39.0-53.0) % MCV 93.4 (80.0-100.0) fL MCH 29.9 (25.0-35.0) pg MCHC 32.0 (31.0-37.0) g/dL RDW 14.1 (11.5-15.5) % Plt Count 284 (150-450) k/uL MPV 7.8 Neutrophils % 86 % Lymphocytes % 7 % Monocytes % 4 % Eosinophils % 1 % Basophils % 0 % Neutrophils # 11.6 H (1.3-7.7) k/uL Lymphocytes # 1.0 (1.0-4.8) k/uL Monocytes # 0.5 (0-1.0) k/uL Eosinophils # 0.1 (0-0.7) k/uL Basophils # 0.1 (0-0.2) k/uL PT 11.3 (10.0-12.5) sec INR 1.0 (<1.2) APTT 27.6 (22.0-30.0) sec Sodium 138 (137-145) mmol/L Potassium 4.2 (3.5-5.1) mmol/L Chloride 98 (98-107) mmol/L Carbon Dioxide 27 (22-30) mmol/L Anion Gap 13 mmol/L BUN 25 H (9-20) mg/dL Creatinine 0.84 (0.66-1.25) mg/dL Est GFR (CKD-EPI)AfAm >90 (>60 ml/min/1.73 sqM) Est GFR (CKD-EPI)NonAf 80 (>60 ml/min/1.73 sqM) Glucose 131 H (74-99) mg/dL POC Glucose (mg/dL) (70-110) mg/dL POC Glu Office Messenger Helper ID Plasma Lactic Acid Chago (0.7-2.0) mmol/L Calcium 9.2 (8.4-10.2) mg/dL Magnesium 1.9 (1.6-2.3) mg/dL Total Bilirubin 0.6 (0.2-1.3) mg/dL AST 27 (17-59) U/L ALT 19 (4-49) U/L Alkaline Phosphatase 102 (38-126) U/L Troponin I (0.000-0.034) ng/mL Total Protein 7.0 (6.3-8.2) g/dL Albumin 3.7 (3.5-5.0) g/dL Influenza Type A (PCR) (Not Detectd) Influenza Type B (PCR) (Not Detectd) RSV (PCR) (Not Detectd) SARS-CoV-2 (PCR) (Not Detectd) 07/10/23 07/10/23 07/10/23 Range/Units 19:34 19:34 19:34 WBC (3.8-10.6) k/uL RBC (4.30-5.90) m/uL Hgb (13.0-17.5) gm/dL Hct (39.0-53.0) % MCV (80.0-100.0) fL MCH (25.0-35.0) pg MCHC (31.0-37.0) g/dL RDW (11.5-15.5) % Plt Count (150-450) k/uL MPV Neutrophils % % Lymphocytes % % Monocytes % % Eosinophils % % Basophils % % Neutrophils # (1.3-7.7) k/uL Lymphocytes # (1.0-4.8) k/uL Monocytes # (0-1.0) k/uL Eosinophils # (0-0.7) k/uL Basophils # (0-0.2) k/uL PT (10.0-12.5) sec INR (<1.2) APTT (22.0-30.0) sec Sodium (137-145) mmol/L Potassium (3.5-5.1) mmol/L Chloride (98-107) mmol/L Carbon Dioxide (22-30) mmol/L Anion Gap mmol/L BUN (9-20) mg/dL Creatinine (0.66-1.25) mg/dL Est GFR (CKD-EPI)AfAm (>60 ml/min/1.73 sqM) Est GFR (CKD-EPI)NonAf (>60 ml/min/1.73 sqM) Glucose (74-99) mg/dL POC Glucose (mg/dL) (70-110) mg/dL POC Glu Office Messenger Helper ID Plasma Lactic Acid Chago 1.1 (0.7-2.0) mmol/L Calcium (8.4-10.2) mg/dL Magnesium (1.6-2.3) mg/dL Total Bilirubin (0.2-1.3) mg/dL AST (17-59) U/L ALT (4-49) U/L Alkaline Phosphatase (38-126) U/L Troponin I <0.012 (0.000-0.034) ng/mL Total Protein (6.3-8.2) g/dL Albumin (3.5-5.0) g/dL Influenza Type A (PCR) Not Detected (Not Detectd) Influenza Type B (PCR) Not Detected (Not Detectd) RSV (PCR) Detected A (Not Detectd) SARS-CoV-2 (PCR) Not Detected (Not Detectd) 07/10/23 Range/Units 19:38 WBC (3.8-10.6) k/uL RBC (4.30-5.90) m/uL Hgb (13.0-17.5) gm/dL Hct (39.0-53.0) % MCV (80.0-100.0) fL MCH (25.0-35.0) pg MCHC (31.0-37.0) g/dL RDW (11.5-15.5) % Plt Count (150-450) k/uL MPV Neutrophils % % Lymphocytes % % Monocytes % % Eosinophils % % Basophils % % Neutrophils # (1.3-7.7) k/uL Lymphocytes # (1.0-4.8) k/uL Monocytes # (0-1.0) k/uL Eosinophils # (0-0.7) k/uL Basophils # (0-0.2) k/uL PT (10.0-12.5) sec INR (<1.2) APTT (22.0-30.0) sec Sodium (137-145) mmol/L Potassium (3.5-5.1) mmol/L Chloride (98-107) mmol/L Carbon Dioxide (22-30) mmol/L Anion Gap mmol/L BUN (9-20) mg/dL Creatinine (0.66-1.25) mg/dL Est GFR (CKD-EPI)AfAm (>60 ml/min/1.73 sqM) Est GFR (CKD-EPI)NonAf (>60 ml/min/1.73 sqM) Glucose (74-99) mg/dL POC Glucose (mg/dL) 122 H (70-110) mg/dL POC Glu Office Messenger Helper ID Delfino, Nancy Plasma Lactic Acid Chago (0.7-2.0) mmol/L Calcium (8.4-10.2) mg/dL Magnesium (1.6-2.3) mg/dL Total Bilirubin (0.2-1.3) mg/dL AST (17-59) U/L ALT (4-49) U/L Alkaline Phosphatase (38-126) U/L Troponin I (0.000-0.034) ng/mL Total Protein (6.3-8.2) g/dL Albumin (3.5-5.0) g/dL Influenza Type A (PCR) (Not Detectd) Influenza Type B (PCR) (Not Detectd) RSV (PCR) (Not Detectd) SARS-CoV-2 (PCR) (Not Detectd) Disposition Clinical Impression: RSV infection, Pneumonia, Weakness Disposition: ADMITTED IP TO THIS HOSP Is patient prescribed a controlled substance at d/c from ED?: No Referrals: Jeffrey Balbuena DO [Primary Care Provider] - 1-2 days Time of Disposition: 23:16
--- NOTE | 2023-07-10 19:36 | XR ---
EXAMINATION TYPE: XR chest 2V DATE OF EXAM: 07/10/2023 7:30 PM CLINICAL INDICATION:Male, 87 years old with history of Weakness; COMPARISON: Chest radiographs from 06/21/2023. TECHNIQUE: XR chest 2V Frontal and lateral views of the chest. FINDINGS: Lungs/Pleura: Airspace opacities project over the spine lateral view. There is no evidence of pleural effusion, focal consolidation, or pneumothorax. Pulmonary vascularity: Unremarkable. Heart/mediastinum: Cardiomediastinal silhouette is unremarkable. Musculoskeletal: Degenerative changes of the shoulder joints. Other findings: None IMPRESSION: Left lower lung airspace opacities correlate for pneumonia.
[2023-07-10 19:39] LABS: Glucose,Whole Blood 122 mg/dL (70-110)
[2023-07-10 19:59] LABS: Basophils # (A) 0.1 k/uL (0-0.2); Basophils % (A) 0 %; Eosinophils # (A) 0.1 k/uL (0-0.7); Eosinophils % (A) 1 %; HGB 13.8 gm/dL (13.0-17.5); Lymphocytes % (A) 7 %; MCH 29.9 pg (25.0-35.0); MCV 93.4 fL (80.0-100.0); Mean Platelet Volume 7.8; Monocytes # (A) 0.5 k/uL (0-1.0); Monocytes % (A) 4 %; Neutrophils # (A) 11.6 k/uL (1.3-7.7); Neutrophils % (A) 86 %; Platelet Count 284 k/uL (150-450); RDW 14.1 % (11.5-15.5); WBC 13.5 k/uL (3.8-10.6)
[2023-07-10 20:07] LABS: Partial Thromboplastin Time 27.6 sec (22.0-30.0); Prothrombin Time 11.3 sec (10.0-12.5)
[2023-07-10 20:12] LABS: ALT 19 U/L (4-49); AST 27 U/L (17-59); African American GFR (CKD) >90 (>60 ml/min/1.73 sqM); Albumin 3.7 g/dL (3.5-5.0); Alkaline Phosphatase 102 U/L (38-126); Anion Gap 13 mmol/L; Blood Urea Nitrogen 25 mg/dL (9-20); Calcium 9.2 mg/dL (8.4-10.2); Carbon Dioxide 27 mmol/L (22-30); Chloride 98 mmol/L (98-107); Glucose 131 mg/dL (74-99); Magnesium 1.9 mg/dL (1.6-2.3); Non-African American GFR(CKD) 80 (>60 ml/min/1.73 sqM); Potassium 4.2 mmol/L (3.5-5.1); Sodium 138 mmol/L (137-145); Total Bilirubin 0.6 mg/dL (0.2-1.3)
--- NOTE | 2023-07-10 23:01 | CT ---
EXAMINATION TYPE: CT brain wo con CT DLP: 1373.4 mGycm, Automated exposure control for dose reduction was used. DATE OF EXAM: 07/10/2023 10:57 PM COMPARISON: 05/11/2021. CLINICAL INDICATION:Male, 87 years old with history of weak, Weakness. Confusion. TECHNIQUE: Brain: Axial CT images of the brain were obtained with coronal and sagittal reformats created and rev iewed. Contrast used: None. Oral contrast used: None. FINDINGS: Brain: Extra-axial spaces: No abnormal extra-axial fluid collections. Ventricular system: Dilatation in proportion to cerebral atrophy. Cerebral parenchyma: Encephalomalacia the left MCA territory from prior injury. No acute intraparench ymal hemorrhage or mass effect. The duong-white junction is well differentiated. Scattered hypoattenu ating areas are seen within the white matter. Cerebellum: Unremarkable. Mass effect: No evidence of midline shift. Intracranial vasculature: Atherosclerotic calcifications of the intracranial vessels. Left middle fur scraper nial fossa metallic clip. Soft tissues: Normal. Calvarium/osseous structures: No depressed skull fracture. Paranasal sinuses and mastoid air cells: Mild scattered paranasal sinus disease. Visualized orbits: Bilateral aphakia IMPRESSION: 1. No acute intracranial process. 2. Remote left MCA injury. No evidence for acute/subacute CVA. Similar to 2020. Delayed reporting to lack of proper imaging at 7:30 PM.
[2023-07-10] MEDS ORDERED: PNEUMONIA PROTOCOL UTILIZED 1 EACH MISC PO PRN (23:16)
[2023-07-10] MEDS ORDERED: AZITHROMYCIN 500 MG in SODIUM CHLORIDE 0.9% 250 ML IVPB STA (23:16)
[2023-07-11] MEDS: SODIUM CHLORIDE 0.9% 1,000 ML IV SCH ×3 (01:01→21:51)
[2023-07-11 02:33] LABS: Appearance,Urine Clear (Clear); Bilirubin,Urine Negative (Negative); Blood,Urine Negative (Negative); Color,Urine Yellow; Glucose,Urine (UA) Negative (Negative); Ketones,Urine Negative (Negative); Leukocyte Esterase,Urine Negative (Negative); Nitrite,Urine Negative (Negative); PH, Urine 6.5 (5.0-8.0); Protein,Urine Trace (Negative); Urobilinogen,Urine <2.0 mg/dL (<2.0)
[2023-07-11] MEDS ORDERED: ACETAMINOPHEN TAB 325 MG TAB PO PRN (09:37)
[2023-07-11] MEDS ORDERED: TRIAMCINOLONE 0.1% CREAM 80 GM TUBE TOPICAL PRN (09:38)
[2023-07-11] MEDS ORDERED: bisacodyL 10 MG SUPP RECTAL PRN (09:38)
[2023-07-11] MEDS ORDERED: NA PHOS,M-B/NA PHOS,DI-BA 133 ML ENEMA RECTAL PRN (09:39)
[2023-07-11] MEDS ORDERED: MAGNESIUM HYDROXIDE 2,400 MG/30 ML CUP PO PRN (09:39)
[2023-07-11] MEDS ORDERED: NON FORMULARY DRUG (Epinephrine (Auto Inject) 0.3 MG/0.3 ML Each) IM PRN (09:39)
--- NOTE | 2023-07-11 10:30 | XR ---
EXAMINATION TYPE: XR chest 1V portable DATE OF EXAM: 07/11/2023 Comparison: 07/10/2013 Clinical History: 87-year-old male with pneumonia Findings: The patient's hand obscures the left base. There is interstitial prominence. Heart upper limits of no rmal in size. Worsening patchy right basilar opacity. No sizable pleural effusion on the frontal view . Relative upper lung lucencies. Impression: Suspect COPD with worsening patchy opacity, possible infiltrate at the right base. The patient's hand is located over the chest and obscures the left base.
[2023-07-11] MEDS: ENOXAPARIN 40 MG/0.4 ML SYRINGE SQ SCH (10:35)
[2023-07-11] MEDS: amLODIPine 5 MG TAB PO SCH (10:35)
[2023-07-11] MEDS: PSYLLIUM HUSK 100% 6 GM PACKET PO SCH ×2 (10:35→17:54)
[2023-07-11] MEDS ORDERED: ALPRAZolam 0.25 MG TAB PO PRN (10:47)
[2023-07-11] MEDS ORDERED: ONDANSETRON 4 MG/2 ML VIAL IVP PRN (10:47)
[2023-07-11] MEDS ORDERED: NALOXONE 0.4 MG/ML 1 ML VIAL IV PRN (10:47)
[2023-07-11] MEDS ORDERED: MELATONIN 3 MG TABLET PO PRN (10:47)
[2023-07-11] MEDS ORDERED: CALCIUM CARBONATE 500 MG CHEWABLE PO PRN (10:47)
[2023-07-11] MEDS: NIACIN TR 500 MG CAPLET PO SCH ×2 (10:57→17:54)
[2023-07-11] MEDS: ATROPINE OPHTH SOLN 1% 5ML BTL SUBLINGUAL SCH ×2 (10:57→17:54)
[2023-07-11] MEDS: BUDESONIDE 1 MG/2 ML NEBU INHALATION SCH ×2 (11:49→20:14)
[2023-07-11] MEDS: IPRATROPIUM-ALBUTEROL 3 ML NEB INHALATION SCH ×3 (11:51→20:14)
--- NOTE | 2023-07-11 12:29 | P.HPIM ---
History of Present Illness H&P Date: 07/11/23 Chief Complaint: Increased tiredness Patient is a 87-year-old male with a past medical history of hypertension, hyperlipidemia, history of CVA with right-sided paralysis and speech problems - wheelchair and dementia, anxiety and prior history of smoking and also right carotid endarterectomy Patient is a resident of [facility]. The staff reported that the patient had become more weaker. In the 180 but does state patient had a stroke. Was unable to follow commands. Stroke was ruled out in the ER. Patient was found to be RSV positive. Hypoxic. Congested chest. At the [facility] his pulse ox was recorded to be 83%. And found to be tachycardic. Patient against rather tired this morning. Rattly chest. Short of breath. Able to answer occasional question. Review of systems: See above, unable to obtain much history patient rather lethargic. Past medical history to include: Hypertension, hyperlipidemia, BPH, moderate cognitive impairment from prior stroke, GERD, right-sided weakness from prior stroke, dysarthria, chronic medical debility using a wheelchair, Harris's esophagus Social history: . smoked for about 35 years, cigars. Stop smoking about 24 years ago. Uses a wheelchair -at [facility] PHYSICAL EXAMINATION: VITAL SIGNS: 98.3, 105, 18, 139/11, 89% on 4 L upon presentation GENERAL: Reclining in bed, comfortable EYES: Pupils equal. Conjunctiva normal. HEENT: External appearance of nose and ears normal, oral cavity grossly normal. NECK: JVD not raised; masses not palpable. HEART: First and second heart sounds are normal; no edema. LUNGS: Respiratory rate increased, audible congested chest. Decreased breath sounds. Coarse crackles ABDOMEN: Soft, nontender, liver spleen not palpable, no masses palpable. PSYCH: Lethargic. We will answer only occasional question MUSCULOSKELETAL:No Clubbing/cyanosis;muscles-grossly intact. Evidence of OA NEUROLOGICAL: . Slight dysarthria. Right arm weakness with hand contracture. Mild right leg weakness. INVESTIGATIONS, reviewed in the clinical context: Chest x-ray film personally reviewed by me-some infiltrate White count 13.5 hemoglobin 13.8 platelets 24 sodium 138 potassium 4.2 creatinine 0.84 blood glucose 131 UA: Protein trace Influenza type A, diabetes, COVID-19: Not detected RSV PCR: Detected EKG tracing personally reviewed by me-sinus tachycardia. Poor baseline. Assessment and plan: -Acute RSV infection causing pneumonitis and hypoxia and acute delirium Symptomatic treatment with bronchodilators. Steroids. Empirically on IV antibiotic started the ER to rule out secondary bacterial pneumonia. Check pro calcitonin. -Sepsis from acute RSV infection, POA -Acute hypoxic respiratory failure from acute RSV infection Supplement oxygen -Acute hypoxic encephalopathy with acute delirium from RSV infection - severe cognitive impairment from advanced dementia - Harris's esophagus PPI Essential Hypertension -Amlodipine -Hyperlipidemia Lipitor GERD -PPI BPH -Flomax -Right-sided paresis with right arm contracture with right arm weakness more than the Márquez from prior stroke and chronic dysarthria -Chronic medical debility normally uses a wheelchair 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 - Past Family History Father History Unknown: Yes Mother Family Medical History: CVA/TIA, Dementia Additional Family Medical History / Comment(s): at age 94 or 95 Medications and Allergies Home Medications Medication Instructions Recorded Confirmed Type Atorvastatin [Lipitor] 10 mg PO HS@2100 07/09/18 07/10/23 History Tamsulosin [Flomax] 0.4 mg PO HS@2100 07/09/18 07/10/23 History amLODIPine [Norvasc] 5 mg PO DAILY@0800 07/09/18 07/10/23 History Cholecalciferol (Vitamin D3) 125 mcg PO DAILY@1700 10/03/20 07/10/23 History [Vitamin D3 (5000 Iu)] Ketoconazole 2% Shampoo [Nizoral] 1 applic TOPICAL DIRECTED 05/11/21 07/10/23 History Psyllium Husk 100% [Metamucil 6 gm PO BID@0800,1700 05/11/21 07/10/23 History Packet] Albuterol Inhaler [Ventolin Hfa 2 puff INHALATION RT-Q4H PRN 12/04/21 07/10/23 History Inhaler] Ammonium Lactate Cream [Lac-Hydrin 1 applic TOPICAL DAILY@0800 12/04/21 07/10/23 History 12% Cream] Niacinamide 500 mg PO BID@0800,1700 12/04/21 07/10/23 History Omeprazole 40 mg PO DAILY@1700 12/04/21 07/10/23 History Acetaminophen [Tylenol 8 Hour] 650 mg PO Q4H PRN 06/21/23 07/10/23 History Atropine Sulfate/Pf [Atropine 1% 2 drop SUBLINGUAL BID@0800,1700 06/21/23 07/10/23 History Eye Drops] EPINEPHrine (Auto Inject) [Epipen] 0.3 mg IM ONCE PRN 06/21/23 07/10/23 History Multivitamins, Thera [Multivitamin 1 tab PO DAILY@1700 06/21/23 07/10/23 History (formulary)] Na Phos,M-B/Na Phos,Di-Ba [Fleet 133 ml RECTAL DAILY PRN 06/21/23 07/10/23 History Adult] Triamcinolone 0.1% Cream [Kenalog 1 applic TOPICAL BID PRN 06/21/23 07/10/23 History 0.1% Cream] bisacodyL [Dulcolax] 10 mg RECTAL DAILY PRN 06/21/23 07/10/23 History guaiFENesin [guaiFENesin Oral 200 mg PO Q4H PRN 06/21/23 07/10/23 History Solution] Magnesium Hydroxide [Milk of 2,400 mg PO Q48H PRN 07/10/23 07/10/23 History Magnesia] Allergies Allergy/AdvReac Type Severity Reaction Status Date / Time Penicillins Allergy Unknown Verified 07/10/23 19:47 Childhood Physical Exam Vitals: Vital Signs Temp Pulse Pulse Resp BP BP Pulse Ox 07/11/23 08:48 94 L 07/11/23 06:16 98.7 F 75 69 18 137/103 137/103 92 L 07/11/23 03:30 98.4 F 70 71 18 125/65 125/65 92 L 07/11/23 02:09 98.0 F 79 79 18 116/73 116/73 93 L 07/11/23 01:02 98.4 F 91 86 18 148/76 148/76 94 L 07/10/23 22:13 98.3 F 91 18 159/75 159/75 94 L 07/10/23 19:09 89 L 07/10/23 18:59 105 H 18 139/101 Intake and Output 07/10/23 07/11/23 07/11/23 22:59 06:59 14:59 Other: Weight 55.338 kg Results CBC & Chem 7: 07/10/23 19:34 07/10/23 19:34 Labs: Abnormal Lab Results - Last 24 Hours (Table) 07/10/23 07/10/23 07/10/23 Range/Units 02:06 19:34 19:34 WBC 13.5 H (3.8-10.6) k/uL Neutrophils # 11.6 H (1.3-7.7) k/uL BUN 25 H (9-20) mg/dL Glucose 131 H (74-99) mg/dL POC Glucose (mg/dL) (70-110) mg/dL Urine Protein Trace H (Negative) RSV (PCR) (Not Detectd) 07/10/23 07/10/23 Range/Units 19:34 19:38 WBC (3.8-10.6) k/uL Neutrophils # (1.3-7.7) k/uL BUN (9-20) mg/dL Glucose (74-99) mg/dL POC Glucose (mg/dL) 122 H (70-110) mg/dL Urine Protein (Negative) RSV (PCR) Detected A (Not Detectd)
[2023-07-11] MEDS: guaiFENesin 600 MG TABLET.ER PO SCH ×3 (13:55→21:51)
[2023-07-11] MEDS: PANTOPRAZOLE 40 MG TABLET PO SCH (17:54)
[2023-07-11] MEDS: MULTIVITAMINS, THERA 1 EACH TAB PO SCH (17:54)
[2023-07-11] MEDS: CHOLECALCIFEROL 125 MCG (5000 IU) TABLET PO SCH (17:54)
[2023-07-11] MEDS: TAMSULOSIN 0.4 MG CAP.ER.24H PO SCH (21:51)
[2023-07-11] MEDS: ATORVASTATIN 10 MG TAB PO SCH (21:51)
[2023-07-11] MEDS: AZITHROMYCIN 500 MG TAB PO SCH (22:33)
[2023-07-12] MEDS: SODIUM CHLORIDE 0.9% 1,000 ML IV SCH ×2 (05:40→14:34)
[2023-07-12 06:53] LABS: African American GFR (CKD) >90 (>60 ml/min/1.73 sqM); Anion Gap 9 mmol/L; Blood Urea Nitrogen 18 mg/dL (9-20); Calcium 8.5 mg/dL (8.4-10.2); Carbon Dioxide 25 mmol/L (22-30); Chloride 106 mmol/L (98-107); Glucose 89 mg/dL (74-99); Non-African American GFR(CKD) 88 (>60 ml/min/1.73 sqM); Sodium 140 mmol/L (137-145)
[2023-07-12] MEDS: BUDESONIDE 1 MG/2 ML NEBU INHALATION SCH ×2 (08:16→20:18)
[2023-07-12] MEDS: IPRATROPIUM-ALBUTEROL 3 ML NEB INHALATION SCH ×4 (08:16→20:18)
[2023-07-12] MEDS: ENOXAPARIN 40 MG/0.4 ML SYRINGE SQ SCH (08:38)
[2023-07-12] MEDS: PSYLLIUM HUSK 100% 6 GM PACKET PO SCH ×2 (08:38→16:42)
[2023-07-12] MEDS: NIACIN TR 500 MG CAPLET PO SCH ×2 (08:38→16:42)
[2023-07-12] MEDS: amLODIPine 5 MG TAB PO SCH (08:38)
[2023-07-12] MEDS: ATROPINE OPHTH SOLN 1% 5ML BTL SUBLINGUAL SCH ×2 (08:38→16:42)
[2023-07-12] MEDS: guaiFENesin 600 MG TABLET.ER PO SCH ×2 (08:39→11:08)
[2023-07-12] MEDS: AMMONIUM LACTATE 12% CREAM 140 GM TUBE TOPICAL SCH (08:53)
[2023-07-12 12:34] VITALS: BMI 19.1
[2023-07-12] MEDS ORDERED: guaiFENesin SYRUP 100MG/5ML 200 MG/10 ML CUP PO PRN (16:33)
[2023-07-12] MEDS: CHOLECALCIFEROL 125 MCG (5000 IU) TABLET PO SCH (16:42)
[2023-07-12] MEDS: MULTIVITAMINS, THERA 1 EACH TAB PO SCH (16:42)
[2023-07-12] MEDS: PANTOPRAZOLE 40 MG TABLET PO SCH (16:42)
[2023-07-12] MEDS: guaiFENesin SYRUP 100MG/5ML 200 MG/10 ML CUP PO SCH ×2 (17:05→23:53)
--- NOTE | 2023-07-12 17:05 | P.PN ---
Progress Note - Text Progress Note Date: 07/12/23 Chief Complaint: Increased tiredness Patient is a 87-year-old male with a past medical history of hypertension, hyperlipidemia, history of CVA with right-sided paralysis and speech problems - wheelchair and dementia, anxiety and prior history of smoking and also right c arotid endarterectomy Patient is a resident of [facility]. The staff reported that the patient had become more weaker. In the 180 but does state patient had a stroke. Was unable to follow commands. Stroke was ruled out in the ER. Patient was found to be RSV positive. Hypoxic. Congested chest. At the [facility] his pulse ox was recorded to be 83%. And found to be tachycardic. Patient against rather tired this morning. Rattly chest. Short of breath. Able to answer occasional question. 07/12/2023: Patient more oriented today. Less delirious. Less congestion in the chest. Tired. Also found to have secondary bacterial infection. On IV ceftriaxone. Active Medications Acetaminophen (Acetaminophen Tab 325 Mg Tab) 650 mg PO Q4H PRN PRN Reason: GENERAL DISCOMFORT Albuterol/Ipratropium (Ipratropium-Albuterol 3 Ml Neb) 3 ml INHALATION RT-QID COUNTS INCLUDE 234 BEDS AT THE [facility] Last Admin: 07/12/23 15:57 Dose: 3 ml Alprazolam (Alprazolam 0.25 Mg Tab) 0.25 mg PO Q6HR PRN PRN Reason: Anxiety Amlodipine Besylate (Amlodipine 5 Mg Tab) 5 mg PO DAILY@0800 COUNTS INCLUDE 234 BEDS AT THE [facility] Last Admin: 07/12/23 08:38 Dose: 5 mg Atorvastatin Calcium (Atorvastatin 10 Mg Tab) 10 mg PO HS@2100 COUNTS INCLUDE 234 BEDS AT THE [facility] Last Admin: 07/11/23 21:51 Dose: 10 mg Atropine Sulfate (Atropine Ophth Soln 1% 5ml Btl) 2 drops SUBLINGUAL BID@0800,1700 COUNTS INCLUDE 234 BEDS AT THE [facility] Last Admin: 07/12/23 16:42 Dose: 2 drops Azithromycin (Azithromycin 500 Mg Tab) 500 mg PO DAILY@2100 COUNTS INCLUDE 234 BEDS AT THE [facility]; Protocol Stop: 07/12/23 21:01 Last Admin: 07/11/23 22:33 Dose: 500 mg Bisacodyl (Bisacodyl 10 Mg Supp) 10 mg RECTAL DAILY PRN PRN Reason: Constipation Budesonide (Budesonide 1 Mg/2 Ml Nebu) 1 mg INHALATION RT-BID COUNTS INCLUDE 234 BEDS AT THE [facility] Last Admin: 07/12/23 08:16 Dose: Not Given Calcium Carbonate/Glycine (Calcium Carbonate 500 Mg Chewable) 1,000 mg PO Q4HR PRN PRN Reason: Dyspepsia Cholecalciferol (Cholecalciferol 125 Mcg (5000 Iu) Tablet) 125 mcg PO DAILY@1700 COUNTS INCLUDE 234 BEDS AT THE [facility] Last Admin: 07/12/23 16:42 Dose: 125 mcg Enoxaparin Sodium (Enoxaparin 40 Mg/0.4 Ml Syringe) 40 mg SQ DAILY COUNTS INCLUDE 234 BEDS AT THE [facility] Last Admin: 07/12/23 08:38 Dose: 40 mg Guaifenesin (Guaifenesin Syrup 100mg/5ml 200 Mg/10 Ml Cup) 200 mg PO Q6HR COUNTS INCLUDE 234 BEDS AT THE [facility] Sodium Chloride (Saline 0.9%) 1,000 mls @ 100 mls/hr IV .Q10H COUNTS INCLUDE 234 BEDS AT THE [facility] Last Admin: 07/12/23 14:34 Dose: 100 mls/hr Ceftriaxone Sodium 2 gm/ (Sodium Chloride) 50 mls @ 100 mls/hr IVPB Q24H COUNTS INCLUDE 234 BEDS AT THE [facility]; Protocol Stop: 07/15/23 00:29 Last Admin: 07/11/23 23:46 Dose: 100 mls/hr Lactic Acid (Ammonium Lactate 12% Cream 140 Gm Tube) 1 applic TOPICAL DAILY@0800 COUNTS INCLUDE 234 BEDS AT THE [facility]; Protocol Last Admin: 07/12/23 08:53 Dose: 1 applic Magnesium Hydroxide (Magnesium Hydroxide 2,400 Mg/30 Ml Cup) 2,400 mg PO Q48H PRN PRN Reason: Constipation Melatonin (Melatonin 3 Mg Tablet) 3 mg PO HS PRN PRN Reason: Insomnia Miscellaneous Information (Pneumonia Protocol Utilized 1 Each Misc) 1 each PO ONCE PRN PRN Reason: Per Protocol Multivitamins (Multivitamins, Thera 1 Each Tab) 1 each PO DAILY@1700 COUNTS INCLUDE 234 BEDS AT THE [facility] Last Admin: 07/12/23 16:42 Dose: 1 each Naloxone HCl (Naloxone 0.4 Mg/Ml 1 Ml Vial) 0.2 mg IV Q2M PRN PRN Reason: Opioid Reversal Niacin (Niacin Tr 500 Mg Caplet) 500 mg PO BID@0800,1700 COUNTS INCLUDE 234 BEDS AT THE [facility] Last Admin: 07/12/23 16:42 Dose: 500 mg Ondansetron HCl (Ondansetron 4 Mg/2 Ml Vial) 4 mg IVP Q8HR PRN PRN Reason: Nausea And Vomiting Pantoprazole Sodium (Pantoprazole 40 Mg Tablet) 40 mg PO DAILY@1700 COUNTS INCLUDE 234 BEDS AT THE [facility] Last Admin: 07/12/23 16:42 Dose: 40 mg Psyllium Hydrophilic Mucilloid (Psyllium Husk 100% 6 Gm Packet) 6 gm PO BID@0800,1700 COUNTS INCLUDE 234 BEDS AT THE [facility] Last Admin: 07/12/23 16:42 Dose: 6 gm Sodium Biphosphate/Sodium Phosphate (Na Phos,M-B/Na Phos,Di-Ba 133 Ml Enema) 133 ml RECTAL DAILY PRN PRN Reason: Constipation Tamsulosin HCl (Tamsulosin 0.4 Mg Cap.Er.24h) 0.4 mg PO HS@2100 COUNTS INCLUDE 234 BEDS AT THE [facility] Last Admin: 07/11/23 21:51 Dose: 0.4 mg Triamcinolone Acetonide (Triamcinolone 0.1% Cream 80 Gm Tube) 1 applic TOPICAL BID PRN; Protocol PRN Reason: ECZEMA/ITCHING Past medical history to include: Hypertension, hyperlipidemia, BPH, moderate cognitive impairment from prior stroke, GERD, right-sided weakness from prior stroke, dysarthria, chronic medical debility using a wheelchair, Harris's esophagus Social history: . smoked for about 35 years, cigars. Stop smoking about 24 years ago. Uses a wheelchair -at [facility] PHYSICAL EXAMINATION: VITAL SIGNS: 97.9, 70, 18, 11/48, 94% on 3 L GENERAL: Reclining in bed, tired EYES: Pupils equal. Conjunctiva normal. HEENT: External appearance of nose and ears normal, oral cavity grossly normal. NECK: JVD not raised; masses not palpable. HEART: First and second heart sounds are normal; no edema. LUNGS: Respiratory rate increased, audibly congested but less than yesterday. Decreased breath sounds. Decreased wheezing ABDOMEN: Soft, nontender, liver spleen not palpable, no masses palpable. PSYCH: A bit more awake, we'll answer questions better MUSCULOSKELETAL:No Clubbing/cyanosis;muscles-grossly intact. Evidence of OA NEUROLOGICAL: . Slight dysarthria. Right arm weakness with hand contracture. Mild right leg weakness. INVESTIGATIONS, reviewed in the clinical context: 07/12/2023: Potassium 4 creatinine 0.67 procalcitonin 0.23 Chest x-ray film personally reviewed by me-some infiltrate White count 13.5 hemoglobin 13.8 platelets 24 sodium 138 potassium 4.2 creatinine 0.84 blood glucose 131 UA: Protein trace Influenza type A, diabetes, COVID-19: Not detected RSV PCR: Detected EKG tracing personally reviewed by me-sinus tachycardia. Poor baseline. Assessment and plan: -Acute RSV infection causing pneumonitis and hypoxia and acute delirium Symptomatic treatment with bronchodilators. Steroids. Empirically on IV antibiotic started the ER to rule out secondary bacterial pneumonia. Check pro calcitonin. -Probable secondary bacterial infections, consider gram-negative organism Elevated procalcitonin. IV ceftriaxone. -Sepsis from acute RSV infection, POA -Acute hypoxic respiratory failure from acute RSV infection Supplement oxygen if in 3 L -Acute hypoxic encephalopathy with acute delirium from RSV infection: Improving - severe cognitive impairment from advanced dementia - Harris's esophagus PPI Essential Hypertension -Amlodipine -Hyperlipidemia Lipitor GERD -PPI BPH -Flomax -Right-sided paresis with right arm contracture with right arm weakness more than the Márquez from prior stroke and chronic dysarthria -Chronic medical debility normally uses a wheelchair 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
[2023-07-12] MEDS: AZITHROMYCIN 500 MG TAB PO SCH (21:21)
[2023-07-12] MEDS: TAMSULOSIN 0.4 MG CAP.ER.24H PO SCH (21:21)
[2023-07-12] MEDS: ATORVASTATIN 10 MG TAB PO SCH (21:22)
[2023-07-13] MEDS: SODIUM CHLORIDE 0.9% 1,000 ML IV SCH ×2 (02:36→11:53)
[2023-07-13] MEDS: guaiFENesin SYRUP 100MG/5ML 200 MG/10 ML CUP PO SCH ×3 (05:33→17:35)
[2023-07-13] MEDS: IPRATROPIUM-ALBUTEROL 3 ML NEB INHALATION SCH ×4 (08:20→21:50)
[2023-07-13] MEDS: BUDESONIDE 1 MG/2 ML NEBU INHALATION SCH ×2 (08:20→21:50)
[2023-07-13] MEDS: ATROPINE OPHTH SOLN 1% 5ML BTL SUBLINGUAL SCH ×2 (09:34→17:35)
[2023-07-13] MEDS: amLODIPine 5 MG TAB PO SCH (09:35)
[2023-07-13] MEDS: NIACIN TR 500 MG CAPLET PO SCH ×2 (09:35→17:36)
[2023-07-13] MEDS: ENOXAPARIN 40 MG/0.4 ML SYRINGE SQ SCH (09:35)
[2023-07-13] MEDS: AMMONIUM LACTATE 12% CREAM 140 GM TUBE TOPICAL SCH (09:36)
[2023-07-13] MEDS: PSYLLIUM HUSK 100% 6 GM PACKET PO SCH ×2 (09:36→17:35)
--- NOTE | 2023-07-13 12:37 | P.PN ---
Progress Note - Text Progress Note Date: 07/13/23 Chief Complaint: Increased tiredness Patient is a 87-year-old male with a past medical history of hypertension, hyperlipidemia, history of CVA with right-sided paralysis and speech problems - wheelchair and dementia, anxiety and prior history of smoking and also right c arotid endarterectomy Patient is a resident of [facility]. The staff reported that the patient had become more weaker. In the 180 but does state patient had a stroke. Was unable to follow commands. Stroke was ruled out in the ER. Patient was found to be RSV positive. Hypoxic. Congested chest. At the [facility] his pulse ox was recorded to be 83%. And found to be tachycardic. Patient against rather tired this morning. Rattly chest. Short of breath. Able to answer occasional question. 07/12/2023: Patient more oriented today. Less delirious. Less congestion in the chest. Tired. Also found to have secondary bacterial infection. On IV ceftriaxone. 07/13/2023: Doing better today. Less congested the chest. Sitting up in a chair. Eating better. at the bedside. Continue DuoNeb. IV ceftriaxone. On 3 L of oxygen Active Medications Acetaminophen (Acetaminophen Tab 325 Mg Tab) 650 mg PO Q4H PRN PRN Reason: GENERAL DISCOMFORT Albuterol/Ipratropium (Ipratropium-Albuterol 3 Ml Neb) 3 ml INHALATION RT-QID [facility] Last Admin: 07/13/23 11:52 Dose: 3 ml Alprazolam (Alprazolam 0.25 Mg Tab) 0.25 mg PO Q6HR PRN PRN Reason: Anxiety Amlodipine Besylate (Amlodipine 5 Mg Tab) 5 mg PO DAILY@0800 [facility] Last Admin: 07/13/23 09:35 Dose: 5 mg Atorvastatin Calcium (Atorvastatin 10 Mg Tab) 10 mg PO HS@2100 [facility] Last Admin: 07/12/23 21:22 Dose: 10 mg Atropine Sulfate (Atropine Ophth Soln 1% 5ml Btl) 2 drops SUBLINGUAL BID@0800,1700 [facility] Last Admin: 07/13/23 09:34 Dose: 2 drops Bisacodyl (Bisacodyl 10 Mg Supp) 10 mg RECTAL DAILY PRN PRN Reason: Constipation Budesonide (Budesonide 1 Mg/2 Ml Nebu) 1 mg INHALATION RT-BID [facility] Last Admin: 07/13/23 08:20 Dose: 1 mg Calcium Carbonate/Glycine (Calcium Carbonate 500 Mg Chewable) 1,000 mg PO Q4HR PRN PRN Reason: Dyspepsia Cholecalciferol (Cholecalciferol 125 Mcg (5000 Iu) Tablet) 125 mcg PO DAILY@1700 [facility] Last Admin: 07/12/23 16:42 Dose: 125 mcg Enoxaparin Sodium (Enoxaparin 40 Mg/0.4 Ml Syringe) 40 mg SQ DAILY [facility] Last Admin: 07/13/23 09:35 Dose: 40 mg Guaifenesin (Guaifenesin Syrup 100mg/5ml 200 Mg/10 Ml Cup) 200 mg PO Q6HR [facility] Last Admin: 07/13/23 11:51 Dose: 200 mg Sodium Chloride (Saline 0.9%) 1,000 mls @ 100 mls/hr IV .Q10H [facility] Last Admin: 07/13/23 11:53 Dose: Not Given Ceftriaxone Sodium 2 gm/ (Sodium Chloride) 50 mls @ 100 mls/hr IVPB Q24H [facility]; Protocol Stop: 07/15/23 00:29 Last Admin: 07/12/23 23:53 Dose: 100 mls/hr Lactic Acid (Ammonium Lactate 12% Cream 140 Gm Tube) 1 applic TOPICAL DAILY@0800 [facility]; Protocol Last Admin: 07/13/23 09:36 Dose: 1 applic Magnesium Hydroxide (Magnesium Hydroxide 2,400 Mg/30 Ml Cup) 2,400 mg PO Q48H PRN PRN Reason: Constipation Melatonin (Melatonin 3 Mg Tablet) 3 mg PO HS PRN PRN Reason: Insomnia Last Admin: 07/12/23 21:22 Dose: 3 mg Methylprednisolone Sodium Succinate (Methylprednisolone Sod Succi 40 Mg/Ml 1 Ml Vial) 40 mg IV Q8HR [facility] Miscellaneous Information (Pneumonia Protocol Utilized 1 Each Misc) 1 each PO ONCE PRN PRN Reason: Per Protocol Multivitamins (Multivitamins, Thera 1 Each Tab) 1 each PO DAILY@1700 [facility] Last Admin: 07/12/23 16:42 Dose: 1 each Naloxone HCl (Naloxone 0.4 Mg/Ml 1 Ml Vial) 0.2 mg IV Q2M PRN PRN Reason: Opioid Reversal Niacin (Niacin Tr 500 Mg Caplet) 500 mg PO BID@0800,1700 [facility] Last Admin: 07/13/23 09:35 Dose: 500 mg Ondansetron HCl (Ondansetron 4 Mg/2 Ml Vial) 4 mg IVP Q8HR PRN PRN Reason: Nausea And Vomiting Pantoprazole Sodium (Pantoprazole 40 Mg Tablet) 40 mg PO DAILY@170 [facility] Last Admin: 07/12/23 16:42 Dose: 40 mg Psyllium Hydrophilic Mucilloid (Psyllium Husk 100% 6 Gm Packet) 6 gm PO BID@0800,170 [facility] Last Admin: 07/13/23 09:36 Dose: 6 gm Sodium Biphosphate/Sodium Phosphate (Na Phos,M-B/Na Phos,Di-Ba 133 Ml Enema) 13 3 ml RECTAL DAILY PRN PRN Reason: Constipation Tamsulosin HCl (Tamsulosin 0.4 Mg Cap.Er.24h) 0.4 mg PO HS@2100 [facility] Last Admin: 07/12/23 21:21 Dose: 0.4 mg Triamcinolone Acetonide (Triamcinolone 0.1% Cream 80 Gm Tube) 1 applic TOPICAL BID PRN; Protocol PRN Reason: ECZEMA/ITCHING Past medical history to include: Hypertension, hyperlipidemia, BPH, moderate cognitive impairment from prior stroke, GERD, right-sided weakness from prior stroke, dysarthria, chronic medical debility using a wheelchair, Harris's esophagus Social history: . smoked for about 35 years, cigars. Stop smoking about 24 years ago. Uses a wheelchair -at [facility] PHYSICAL EXAMINATION: VITAL SIGNS: 97.5, 76, 18, 1 29 x 69, 93% on 3 daughters GENERAL: Sitting up in a chair, eating lunch EYES: Pupils equal. Conjunctiva normal. HEENT: External appearance of nose and ears normal, oral cavity grossly normal. NECK: JVD not raised; masses not palpable. HEART: First and second heart sounds are normal; no edema. LUNGS: Respiratory rate increased, decreased crackles. Decreased breath sounds. ABDOMEN: Soft, nontender, liver spleen not palpable, no masses palpable. PSYCH: Answering simple questions MUSCULOSKELETAL:No Clubbing/cyanosis;muscles-grossly intact. Evidence of OA NEUROLOGICAL: . Slight dysarthria. Right arm weakness with hand contracture. Mild right leg weakness. INVESTIGATIONS, reviewed in the clinical context: 07/12/2023: Potassium 4 creatinine 0.67 procalcitonin 0.23 Chest x-ray film personally reviewed by me-some infiltrate White count 13.5 hemoglobin 13.8 platelets 24 sodium 138 potassium 4.2 creatinine 0.84 blood glucose 131 UA: Protein trace Influenza type A, diabetes, COVID-19: Not detected RSV PCR: Detected EKG tracing personally reviewed by me-sinus tachycardia. Poor baseline. Assessment and plan: -Acute RSV infection causing pneumonitis and hypoxia and acute delirium Symptomatic treatment with bronchodilators. Steroids. Empirically on IV antibiotic started the ER to rule out secondary bacterial pneumonia. Check pro calcitonin. -Probable secondary bacterial infections, consider gram-negative organism Elevated procalcitonin. IV ceftriaxone. -Sepsis from acute RSV infection, POA -Acute hypoxic respiratory failure from acute RSV infection oxygen - 3 L -Acute hypoxic encephalopathy with acute delirium from RSV infection: Improved - severe cognitive impairment from advanced dementia - Harris's esophagus PPI Essential Hypertension -Amlodipine -Hyperlipidemia Lipitor GERD -PPI BPH -Flomax -Right-sided paresis with right arm contracture with right arm weakness more than the Márquez from prior stroke and chronic dysarthria -Chronic medical debility normally uses a wheelchair 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
[2023-07-13] MEDS ORDERED: methylPREDNISolone SOD SUCCI 40 MG/ML 1 ML VIAL IV SCH (16:00)
[2023-07-13] MEDS: PANTOPRAZOLE 40 MG TABLET PO SCH (17:35)
[2023-07-13] MEDS: CHOLECALCIFEROL 125 MCG (5000 IU) TABLET PO SCH (17:35)
[2023-07-13] MEDS: MULTIVITAMINS, THERA 1 EACH TAB PO SCH (17:36)
[2023-07-13] MEDS: ATORVASTATIN 10 MG TAB PO SCH (21:20)
[2023-07-13] MEDS: TAMSULOSIN 0.4 MG CAP.ER.24H PO SCH (21:20)
[2023-07-14] MEDS: guaiFENesin SYRUP 100MG/5ML 200 MG/10 ML CUP PO SCH ×4 (00:27→17:08)
[2023-07-14] MEDS: SODIUM CHLORIDE 0.9% 1,000 ML IV SCH ×3 (05:11→17:09)
[2023-07-14] MEDS: ENOXAPARIN 40 MG/0.4 ML SYRINGE SQ SCH (08:41)
[2023-07-14] MEDS: NIACIN TR 500 MG CAPLET PO SCH ×2 (08:41→17:08)
[2023-07-14] MEDS: amLODIPine 5 MG TAB PO SCH (08:41)
[2023-07-14] MEDS: PSYLLIUM HUSK 100% 6 GM PACKET PO SCH ×2 (08:41→17:07)
[2023-07-14] MEDS: AMMONIUM LACTATE 12% CREAM 140 GM TUBE TOPICAL SCH (08:42)
[2023-07-14] MEDS: ATROPINE OPHTH SOLN 1% 5ML BTL SUBLINGUAL SCH ×2 (08:42→17:08)
[2023-07-14] MEDS: BUDESONIDE 1 MG/2 ML NEBU INHALATION SCH ×2 (09:23→21:56)
[2023-07-14] MEDS: IPRATROPIUM-ALBUTEROL 3 ML NEB INHALATION SCH ×4 (09:23→21:56)
[2023-07-14] MEDS ORDERED: ALBUTEROL NEBULIZED 2.5 MG/3 ML INHALATION PRN (14:29)
[2023-07-14] MEDS ORDERED: guaiFENesin SYRUP 100MG/5ML 200 MG/10 ML CUP PO PRN (14:29)
--- NOTE | 2023-07-14 14:30 | P.PN ---
Subjective Progress Note Date: 07/14/23 87-year-old male with a past medical history of hypertension, hyperlipidemia, history of CVA with right-sided paralysis and speech problems - wheelchair and dementia, anxiety and prior history of smoking and also right carotid endarterectomy Patient is a resident of [facility]. The staff reported that the patient had become more weaker. In the 180 but does state patient had a stroke. Was unable to follow commands. Stroke was ruled out in the ER. Patient was found to be RSV positive. Hypoxic. Congested chest. [facility] pulse ox was recorded to be 83%. And found to be tachycardic. Patient against rather tired this morning. Rattly chest. Short of breath. Able to answer occasional question. 07/12/2023: Patient more oriented today. Less delirious. Less congestion in the chest. Tired. Also found to have secondary bacterial infection. On IV ceftriaxone. 07/13/2023: Doing better today. Less congested the chest. Sitting up in a chair. Eating better. at the bedside. Continue DuoNeb. IV ceftriaxone. On 3 L of oxygen 07/14/2023: Patient seen and evaluated bedside, patient remains on 3 L of oxygen, patient been treated for RSV. Continue patient on breathing treatments. Pro- calcitonin 0.11 , continue IV antibiotics PHYSICAL EXAMINATION: GENERAL: The patient is alert and oriented x3, ill appearance, nasal cannula in place HEENT: Pupils are round and equally reacting to light. EOMI. CARDIOVASCULAR: S1 and S2 present. No murmurs, rubs, or gallops. PULMONARY: Decreased breath sounds bilaterally ABDOMEN: Soft, nontender, nondistended, normoactive bowel sounds. No palpable organomegaly. MUSCULOSKELETAL: No joint swelling or deformity. EXTREMITIES: No cyanosis, clubbing, or pedal edema. NEUROLOGICAL: Gross neurological examination did not reveal any focal deficits. SKIN: No rashes. Objective - Vital Signs Vital signs: Vital Signs Temp 98.2 F 07/14/23 07:10 Pulse 74 07/14/23 12:29 Resp 17 07/14/23 07:10 BP 170/72 07/14/23 07:10 Pulse Ox 94 L 07/14/23 07:10 FiO2 Intake & Output 07/13/23 07/14/23 07/14/23 18:59 06:59 18:59 Intake Total 300 Output Total 300 Balance 300 -300 Intake: Oral 300 Output: Urine 300 Other: Voiding Method Diaper Diaper Urinal Diaper # Voids 2 1 1 # Bowel Movements 1 1 - Labs CBC & Chem 7: 07/10/23 19:34 07/12/23 06:00 Labs: Abnormal Lab Results - Last 24 Hours (Table) 07/14/23 Range/Units 03:52 Procalcitonin 0.11 H (0.02-0.09) ng/mL Microbiology - Last 24 Hours (Table) 07/11/23 00:30 Blood Culture - Preliminary Blood 07/11/23 00:15 Blood Culture - Preliminary Blood Assessment and Plan Assessment: Assessment and plan Acute RSV infection causing pneumonitis and hypoxia and acute delirium Sepsis secondary to RSV infection Acute hypoxic respiratory failure secondary to RSV Acute hypoxic encephalopathy * Continue breathing treatments, continue IV Rocephin, * Continue patient on oral prednisone, albuterol as needed * Weaned from oxygen as tolerated severe cognitive impairment from advanced dementia Hraris's esophagus Essential Hypertension Hyperlipidemia BPH Right-sided paresis with right arm contracture with right arm weakness more than the Márquez from prior stroke and chronic dysarthria Chronic medical debility normally uses a wheelchair * Multiple chronic medical issues, continue home regimen Time with Patient: Greater than 30
[2023-07-14] MEDS: CHOLECALCIFEROL 125 MCG (5000 IU) TABLET PO SCH (17:08)
[2023-07-14] MEDS: MULTIVITAMINS, THERA 1 EACH TAB PO SCH (17:08)
[2023-07-14] MEDS: PANTOPRAZOLE 40 MG TABLET PO SCH (17:08)
[2023-07-14] MEDS: TAMSULOSIN 0.4 MG CAP.ER.24H PO SCH (22:12)
[2023-07-14] MEDS: ATORVASTATIN 10 MG TAB PO SCH (22:12)
[2023-07-15] MEDS: guaiFENesin SYRUP 100MG/5ML 200 MG/10 ML CUP PO SCH ×5 (00:58→23:32)
[2023-07-15] MEDS: SODIUM CHLORIDE 0.9% 1,000 ML IV SCH ×2 (05:10→23:33)
[2023-07-15] MEDS: IPRATROPIUM-ALBUTEROL 3 ML NEB INHALATION SCH ×4 (08:36→18:19)
[2023-07-15] MEDS: BUDESONIDE 1 MG/2 ML NEBU INHALATION SCH ×2 (08:36→18:19)
[2023-07-15 09:11] LABS: HCT 38.4 % (39.0-53.0); HGB 12.4 gm/dL (13.0-17.5); Hypochromasia Slight; MCH 30.1 pg (25.0-35.0); MCHC 32.4 g/dL (31.0-37.0); MCV 92.9 fL (80.0-100.0); Mean Platelet Volume 8.5; Platelet Count 250 k/uL (150-450); RBC 4.13 m/uL (4.30-5.90); RDW 13.9 % (11.5-15.5); WBC 7.2 k/uL (3.8-10.6)
[2023-07-15] MEDS: AMMONIUM LACTATE 12% CREAM 140 GM TUBE TOPICAL SCH (09:13)
[2023-07-15] MEDS: PSYLLIUM HUSK 100% 6 GM PACKET PO SCH ×2 (09:13→18:25)
[2023-07-15] MEDS: predniSONE 20 MG TAB PO SCH (09:13)
[2023-07-15] MEDS: amLODIPine 5 MG TAB PO SCH (09:13)
[2023-07-15] MEDS: NIACIN TR 500 MG CAPLET PO SCH ×2 (09:13→18:28)
[2023-07-15] MEDS: ATROPINE OPHTH SOLN 1% 5ML BTL SUBLINGUAL SCH ×2 (09:14→18:28)
[2023-07-15] MEDS: ENOXAPARIN 40 MG/0.4 ML SYRINGE SQ SCH (09:14)
[2023-07-15 11:50] LABS: African American GFR (CKD) >90 (>60 ml/min/1.73 sqM); Anion Gap 11 mmol/L; Blood Urea Nitrogen 9 mg/dL (9-20); C Reactive Protein 1.9 mg/dL (<1.0); Calcium 8.7 mg/dL (8.4-10.2); Carbon Dioxide 23 mmol/L (22-30); Chloride 105 mmol/L (98-107); Glucose 85 mg/dL (74-99); Non-African American GFR(CKD) 87 (>60 ml/min/1.73 sqM); Potassium 4.2 mmol/L (3.5-5.1); Sodium 139 mmol/L (137-145)
--- NOTE | 2023-07-15 13:43 | P.PN ---
Subjective Progress Note Date: 07/15/23 87-year-old male with a past medical history of hypertension, hyperlipidemia, history of CVA with right-sided paralysis and speech problems - wheelchair and dementia, anxiety and prior history of smoking and also right carotid endarterectomy Patient is a resident of [facility]. The staff reported that the patient had become more weaker. In the 180 but does state patient had a stroke. Was unable to follow commands. Stroke was ruled out in the ER. Patient was found to be RSV positive. Hypoxic. Congested chest. At the [facility] his pulse ox was recorded to be 83%. And found to be tachycardic. Patient against rather tired this morning. Rattly chest. Short of breath. Able to answer occasional question. 07/12/2023: Patient more oriented today. Less delirious. Less congestion in the chest. Tired. Also found to have secondary bacterial infection. On IV ceftriaxone. 07/13/2023: Doing better today. Less congested the chest. Sitting up in a chair. Eating better. at the bedside. Continue DuoNeb. IV ceftriaxone. On 3 L of oxygen 07/14/2023: Patient seen and evaluated bedside, patient remains on 3 L of oxygen, patient been treated for RSV. Continue patient on breathing treatments. Pro- calcitonin 0.11 , continue IV antibiotics 07/15/2023: Patient seen and evaluated bedside, patient is alert and oriented times person and situation, antibiotic completed. Started on prednisone, patient does have episodes of confusion and delirium continue with frequent orientation PHYSICAL EXAMINATION: GENERAL: The patient is alert and oriented x3, ill appearance, nasal cannula in place HEENT: Pupils are round and equally reacting to light. EOMI. CARDIOVASCULAR: S1 and S2 present. No murmurs, rubs, or gallops. PULMONARY: Decreased breath sounds bilaterally ABDOMEN: Soft, nontender, nondistended, normoactive bowel sounds. No palpable organomegaly. MUSCULOSKELETAL: No joint swelling or deformity. EXTREMITIES: No cyanosis, clubbing, or pedal edema. NEUROLOGICAL: Gross neurological examination did not reveal any focal deficits. SKIN: No rashes. Objective - Vital Signs Vital signs: Vital Signs Temp 98.1 F 07/15/23 07:43 Pulse 70 07/15/23 11:24 Resp 19 07/15/23 07:43 BP 113/69 07/15/23 07:43 Pulse Ox 93 L 07/15/23 07:43 FiO2 Intake & Output 07/14/23 07/15/23 07/15/23 18:59 06:59 18:59 Output Total 300 Balance -300 Output: Urine 300 Other: Voiding Method Urinal Urinal Urinal Diaper Diaper Diaper Incontinent Incontinent # Voids 2 2 # Bowel Movements 1 - Labs CBC & Chem 7: 07/15/23 08:03 07/15/23 08:03 Labs: Abnormal Lab Results - Last 24 Hours (Table) 07/15/23 07/15/23 Range/Units 08:03 08:03 RBC 4.13 L (4.30-5.90) m/uL Hgb 12.4 L (13.0-17.5) gm/dL Hct 38.4 L (39.0-53.0) % C-Reactive Protein 1.9 H (<1.0) mg/dL Microbiology - Last 24 Hours (Table) 07/11/23 00:30 Blood Culture - Preliminary Blood 07/11/23 00:15 Blood Culture - Preliminary Blood Assessment and Plan Assessment: Assessment and plan Acute RSV infection causing pneumonitis and hypoxia and acute delirium Sepsis secondary to RSV infection Acute hypoxic respiratory failure secondary to RSV Acute hypoxic encephalopathy IMPROVED * Continue breathing treatments, Completed IV Rocephin,Azithromycin * Continue patient on oral prednisone, albuterol as needed * Weaned from oxygen as tolerated * Bronchopulmonary hygeine 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
[2023-07-15] MEDS: MULTIVITAMINS, THERA 1 EACH TAB PO SCH (18:27)
[2023-07-15] MEDS: PANTOPRAZOLE 40 MG TABLET PO SCH (18:27)
[2023-07-15] MEDS: CHOLECALCIFEROL 125 MCG (5000 IU) TABLET PO SCH (18:27)
[2023-07-15] MEDS: ATORVASTATIN 10 MG TAB PO SCH (22:18)
[2023-07-15] MEDS: TAMSULOSIN 0.4 MG CAP.ER.24H PO SCH (22:18)
[2023-07-16] MEDS: SODIUM CHLORIDE 0.9% 1,000 ML IV SCH ×2 (03:15→08:32)
[2023-07-16] MEDS: guaiFENesin SYRUP 100MG/5ML 200 MG/10 ML CUP PO SCH ×3 (06:08→17:37)
[2023-07-16] MEDS: NIACIN TR 500 MG CAPLET PO SCH ×2 (08:30→17:37)
[2023-07-16] MEDS: predniSONE 20 MG TAB PO SCH (08:30)
[2023-07-16] MEDS: amLODIPine 5 MG TAB PO SCH (08:30)
[2023-07-16] MEDS: ENOXAPARIN 40 MG/0.4 ML SYRINGE SQ SCH (08:30)
[2023-07-16] MEDS: PSYLLIUM HUSK 100% 6 GM PACKET PO SCH ×2 (08:30→17:37)
[2023-07-16] MEDS: ATROPINE OPHTH SOLN 1% 5ML BTL SUBLINGUAL SCH ×2 (08:31→17:37)
[2023-07-16] MEDS: AMMONIUM LACTATE 12% CREAM 140 GM TUBE TOPICAL SCH (08:31)
[2023-07-16] MEDS: IPRATROPIUM-ALBUTEROL 3 ML NEB INHALATION SCH ×4 (09:23→22:18)
[2023-07-16] MEDS: BUDESONIDE 1 MG/2 ML NEBU INHALATION SCH ×2 (09:23→22:18)
[2023-07-16 11:11] LABS: HCT 40.1 % (39.6-50.0); HGB 12.5 g/dL (13.0-17.0); MCH 29.8 pg (27.0-32.0); MCHC 31.2 g/dL (32.0-37.0); MCV 95.7 FL (80.0-97.0); NRBC Per 100 WBC 0 X 10*3/uL (0.00-0.01); Platelet Count 205 X 10*3/uL (140-440); RBC 4.19 X 10*6/uL (4.40-5.60); RDW 14.1 % (11.5-14.5); WBC 10.94 X 10*3/uL (4.50-10.00)
[2023-07-16 11:13] LABS: African American GFR (CKD) >90 (>60 ml/min/1.73 sqM); Anion Gap 12 mmol/L; Blood Urea Nitrogen 15 mg/dL (9-20); Carbon Dioxide 19 mmol/L (22-30); Chloride 109 mmol/L (98-107); Glucose 125 mg/dL (74-99); Non-African American GFR(CKD) 84 (>60 ml/min/1.73 sqM); Potassium 4.2 mmol/L (3.5-5.1); Sodium 140 mmol/L (137-145)
--- NOTE | 2023-07-16 13:22 | P.PN ---
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 The staff reported that the patient had become more weaker. In the 180 but does state patient had a stroke. Was unable to follow commands. Stroke was ruled out in the ER. Patient was found to be RSV positive. Hypoxic. Congested chest. At the [facility] his pulse ox was recorded to be 83%. And found to be tachycardic. Patient against rather tired this morning. Rattly chest. Short of breath. Able to answer occasional question. 07/12/2023: Patient more oriented today. Less delirious. Less congestion in the chest. Tired. Also found to have secondary bacterial infection. On IV ceftriaxone. 07/13/2023: Doing better today. Less congested the chest. Sitting up in a chair. Eating better. at the bedside. Continue DuoNeb. IV ceftriaxone. On 3 L of oxygen 07/14/2023: Patient seen and evaluated bedside, patient remains on 3 L of oxygen, patient been treated for RSV. Continue patient on breathing treatments. Pro- calcitonin 0.11 , continue IV antibiotics 07/15/2023: Patient seen and evaluated bedside, patient is alert and oriented times person and situation, antibiotic completed. Started on prednisone, patient does have episodes of confusion and delirium continue with frequent orientation 07/16/2023: Patient seen and evaluated bedside, patient is alert and answering questions does complain of chills. Patient noted to have elevated white cell count likely secondary to steroid will discontinue prednisone and monitor for 24 hours and potential discharge to rehab within the next 24 hours PHYSICAL EXAMINATION: GENERAL: The patient is alert and oriented x3, ill appearance, nasal cannula in place HEENT: Pupils are round and equally reacting to light. EOMI. CARDIOVASCULAR: S1 and S2 present. No murmurs, rubs, or gallops. PULMONARY: Decreased breath sounds bilaterally ABDOMEN: Soft, nontender, nondistended, normoactive bowel sounds. No palpable organomegaly. MUSCULOSKELETAL: No joint swelling or deformity. EXTREMITIES: No cyanosis, clubbing, or pedal edema. NEUROLOGICAL: Gross neurological examination did not reveal any focal deficits. SKIN: No rashes. Objective - Vital Signs Vital signs: Vital Signs Temp 97.7 F 07/16/23 07:07 Pulse 64 07/16/23 09:35 Resp 16 07/16/23 07:07 BP 156/101 07/16/23 07:07 Pulse Ox 94 L 07/16/23 07:07 FiO2 Intake & Output 07/15/23 07/16/23 07/16/23 18:59 06:59 18:59 Other: Voiding Method Urinal Urinal Diaper Diaper Incontinent Incontinent # Voids 3 2 - Labs CBC & Chem 7: 07/16/23 08:39 07/16/23 08:39 Labs: Abnormal Lab Results - Last 24 Hours (Table) 07/16/23 07/16/23 Range/Units 08:39 08:39 WBC 10.94 H (4.50-10.00) X 10*3/uL RBC 4.19 L (4.40-5.60) X 10*6/uL Hgb 12.5 L (13.0-17.0) g/dL MCHC 31.2 L (32.0-37.0) g/dL Chloride 109 H (98-107) mmol/L Carbon Dioxide 19 L (22-30) mmol/L Glucose 125 H (74-99) mg/dL Microbiology - Last 24 Hours (Table) 07/11/23 00:30 Blood Culture - Final Blood 07/11/23 00:15 Blood Culture - Final Blood Assessment and Plan Assessment: Assessment and plan Acute RSV infection causing pneumonitis and hypoxia and acute delirium Sepsis secondary to RSV infection Acute hypoxic respiratory failure secondary to RSV Acute hypoxic encephalopathy IMPROVED * Continue breathing treatments, Completed IV Rocephin,Azithromycin * patient was on oral prednisone, albuterol as needed, steroids discontinued * Weaned from oxygen as tolerated * Bronchopulmonary hygeine 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
[2023-07-16] MEDS: CHOLECALCIFEROL 125 MCG (5000 IU) TABLET PO SCH (17:37)
[2023-07-16] MEDS: MULTIVITAMINS, THERA 1 EACH TAB PO SCH (17:37)
[2023-07-16] MEDS: PANTOPRAZOLE 40 MG TABLET PO SCH (17:37)
[2023-07-16] MEDS: ATORVASTATIN 10 MG TAB PO SCH (22:11)
[2023-07-16] MEDS: TAMSULOSIN 0.4 MG CAP.ER.24H PO SCH (22:11)
[2023-07-17] MEDS: guaiFENesin SYRUP 100MG/5ML 200 MG/10 ML CUP PO SCH ×4 (00:16→17:33)
[2023-07-17] MEDS: BUDESONIDE 1 MG/2 ML NEBU INHALATION SCH ×2 (08:00→21:46)
[2023-07-17] MEDS: IPRATROPIUM-ALBUTEROL 3 ML NEB INHALATION SCH ×5 (08:00→21:46)
[2023-07-17] MEDS: ATROPINE OPHTH SOLN 1% 5ML BTL SUBLINGUAL SCH ×2 (08:01→17:34)
[2023-07-17] MEDS: ENOXAPARIN 40 MG/0.4 ML SYRINGE SQ SCH (08:01)
[2023-07-17] MEDS: PSYLLIUM HUSK 100% 6 GM PACKET PO SCH ×2 (08:01→17:34)
[2023-07-17] MEDS: AMMONIUM LACTATE 12% CREAM 140 GM TUBE TOPICAL SCH (08:01)
[2023-07-17] MEDS: amLODIPine 5 MG TAB PO SCH (08:01)
[2023-07-17] MEDS: NIACIN TR 500 MG CAPLET PO SCH ×2 (08:01→17:33)
[2023-07-17 10:52] LABS: HCT 40.1 % (39.6-50.0); HGB 12.6 g/dL (13.0-17.0); MCH 29.7 pg (27.0-32.0); MCHC 31.4 g/dL (32.0-37.0); MCV 94.6 FL (80.0-97.0); Mean Platelet Volume 10.2 FL (9.5-12.2); NRBC Per 100 WBC 0 X 10*3/uL (0.00-0.01); Platelet Count 253 X 10*3/uL (140-440); RBC 4.24 X 10*6/uL (4.40-5.60); RDW 14.2 % (11.5-14.5)
[2023-07-17 11:15] LABS: BUN/Creat Ratio 18.89 Ratio (12.00-20.00); Calcium 9.5 mg/dL (8.7-10.3); Chloride 100 mmol/L (96-109); Glucose 88 mg/dL (70-110); Potassium 4.6 mmol/L (3.5-5.5); Sodium 139 mmol/L (135-145)
--- NOTE | 2023-07-17 12:35 | P.PN ---
Subjective Progress Note Date: 07/17/23 87-year-old male with a past medical history of hypertension, hyperlipidemia, history of CVA with right-sided paralysis and speech problems - wheelchair and dementia, anxiety and prior history of smoking and also right carotid endarterectomy Patient is a resident of [facility]. The staff reported that the patient had become more weaker. In the 180 but does state patient had a stroke. Was unable to follow commands. Stroke was ruled out in the ER. Patient was found to be RSV positive. Hypoxic. Congested chest. [facility] pulse ox was recorded to be 83%. And found to be tachycardic. Patient against rather tired this morning. Rattly chest. Short of breath. Able to answer occasional question. 07/12/2023: Patient more oriented today. Less delirious. Less congestion in the chest. Tired. Also found to have secondary bacterial infection. On IV ceftriaxone. 07/13/2023: Doing better today. Less congested the chest. Sitting up in a chair. Eating better. at the bedside. Continue DuoNeb. IV ceftriaxone. On 3 L of oxygen 07/14/2023: Patient seen and evaluated bedside, patient remains on 3 L of oxygen, patient been treated for RSV. Continue patient on breathing treatments. Pro- calcitonin 0.11 , continue IV antibiotics 07/15/2023: Patient seen and evaluated bedside, patient is alert and oriented times person and situation, antibiotic completed. Started on prednisone, patient does have episodes of confusion and delirium continue with frequent orientation 07/16/2023: Patient seen and evaluated bedside, patient is alert and answering questions does complain of chills. Patient noted to have elevated white cell count likely secondary to steroid will discontinue prednisone and monitor for 24 hours and potential discharge to rehab within the next 24 hours 07/17/2023: Patient seen and evaluated bedside, patient on 3 L of oxygen and does complain of feeling not well, complains of nausea. Blood work reviewed leukocytosis persist at follow up on CBC continue IV fluid. Does complain of cough and shortness of breath we will monitor for another 24 hours PHYSICAL EXAMINATION: GENERAL: The patient is alert and oriented x3, ill appearance, nasal cannula in place HEENT: Pupils are round and equally reacting to light. EOMI. CARDIOVASCULAR: S1 and S2 present. No murmurs, rubs, or gallops. PULMONARY: Decreased breath sounds bilaterally ABDOMEN: Soft, nontender, nondistended, normoactive bowel sounds. No palpable organomegaly. MUSCULOSKELETAL: No joint swelling or deformity. EXTREMITIES: No cyanosis, clubbing, or pedal edema. NEUROLOGICAL: Gross neurological examination did not reveal any focal deficits. SKIN: No rashes. Objective - Vital Signs Vital signs: Vital Signs Temp 97.6 F 07/17/23 06:45 Pulse 66 07/17/23 06:45 Resp 17 07/17/23 06:45 BP 150/73 07/17/23 06:45 Pulse Ox 97 07/17/23 06:45 FiO2 Intake & Output 07/16/23 07/17/23 07/17/23 18:59 06:59 18:59 Weight 55.338 kg Other: Voiding Method Urinal Urinal Urinal Diaper Diaper Diaper Incontinent # Voids 3 2 - Labs CBC & Chem 7: 07/17/23 07:33 07/17/23 07:33 Labs: Abnormal Lab Results - Last 24 Hours (Table) 07/17/23 Range/Units 07:33 WBC 11.20 H (4.50-10.00) X 10*3/uL RBC 4.24 L (4.40-5.60) X 10*6/uL Hgb 12.6 L (13.0-17.0) g/dL MCHC 31.4 L (32.0-37.0) g/dL Microbiology - Last 24 Hours (Table) 07/11/23 00:30 Blood Culture - Final Blood 07/11/23 00:15 Blood Culture - Final Blood Assessment and Plan Assessment: Assessment and plan Acute RSV infection causing pneumonitis and hypoxia and acute delirium Sepsis secondary to RSV infection Acute hypoxic respiratory failure secondary to RSV Acute hypoxic encephalopathy IMPROVED * Continue breathing treatments, Completed IV Rocephin,Azithromycin * patient was on oral prednisone, albuterol as needed, steroids discontinued * Weaned from oxygen as tolerated * Bronchopulmonary hygeine 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
[2023-07-17] MEDS ORDERED: SODIUM CHLORIDE 0.9% 1,000 ML IV SCH (12:45)
--- NOTE | 2023-07-17 13:18 | XR ---
EXAMINATION TYPE: XR chest 1V portable DATE OF EXAM: 07/17/2023 COMPARISON: 07/11/2023 HISTORY: Shortness of breath TECHNIQUE: Single frontal view of the chest is obtained. FINDINGS: There is no focal air space opacity, pleural effusion, or pneumothorax seen. The cardiac silhouette size is within normal limits. The osseous structures are intact. Elevated right hemidiap hragm with tiny effusion or pleural thickening and basilar atelectasis favored over pneumonia. Underl rhianna emphysematous changes. Diffuse osteopenia with arthropathy of the shoulders. IMPRESSION: 1. Tiny right pleural effusion or thickening with basilar atelectasis superimposed on a background of COPD. 2. Area of infiltrate at the right lung base is improved compared to prior exam.
[2023-07-17] MEDS: PANTOPRAZOLE 40 MG TABLET PO SCH (17:33)
[2023-07-17] MEDS: CHOLECALCIFEROL 125 MCG (5000 IU) TABLET PO SCH (17:33)
[2023-07-17] MEDS: MULTIVITAMINS, THERA 1 EACH TAB PO SCH (17:34)
[2023-07-17] MEDS: TAMSULOSIN 0.4 MG CAP.ER.24H PO SCH (21:36)
[2023-07-17] MEDS: ATORVASTATIN 10 MG TAB PO SCH (21:36)
[2023-07-18] MEDS: guaiFENesin SYRUP 100MG/5ML 200 MG/10 ML CUP PO SCH ×3 (00:06→13:07)
[2023-07-18] MEDS: PSYLLIUM HUSK 100% 6 GM PACKET PO SCH (08:13)
[2023-07-18] MEDS: AMMONIUM LACTATE 12% CREAM 140 GM TUBE TOPICAL SCH (08:13)
[2023-07-18] MEDS: NIACIN TR 500 MG CAPLET PO SCH (08:13)
[2023-07-18] MEDS: ENOXAPARIN 40 MG/0.4 ML SYRINGE SQ SCH (08:13)
[2023-07-18] MEDS: amLODIPine 5 MG TAB PO SCH (08:13)
[2023-07-18] MEDS: ATROPINE OPHTH SOLN 1% 5ML BTL SUBLINGUAL SCH (08:14)
[2023-07-18 08:52] LABS: HCT 36.3 % (39.6-50.0); HGB 11.5 g/dL (13.0-17.0); MCH 29.6 pg (27.0-32.0); MCHC 31.7 g/dL (32.0-37.0); MCV 93.3 FL (80.0-97.0); Mean Platelet Volume 10.3 FL (9.5-12.2); NRBC Per 100 WBC 0 X 10*3/uL (0.00-0.01); Platelet Count 251 X 10*3/uL (140-440); RBC 3.89 X 10*6/uL (4.40-5.60); RDW 14.3 % (11.5-14.5); WBC 12.74 X 10*3/uL (4.50-10.00)
[2023-07-18 09:05] LABS: Blood Urea Nitrogen 17.6 mg/dL (9.0-27.0); C Reactive Protein <0.30 mg/dL (0.00-0.80); Calcium 9.2 mg/dL (8.7-10.3); Carbon Dioxide 27.6 mmol/L (21.6-31.8); Chloride 103 mmol/L (96-109); Glucose 89 mg/dL (70-110); Potassium 4.2 mmol/L (3.5-5.5); Sodium 140 mmol/L (135-145)
[2023-07-18] MEDS: IPRATROPIUM-ALBUTEROL 3 ML NEB INHALATION SCH ×3 (09:37→16:33)
[2023-07-18] MEDS: BUDESONIDE 1 MG/2 ML NEBU INHALATION SCH (09:38)
--- NOTE | 2023-07-18 12:16 | P.DS ---
Providers Date of admission: 07/11/23 09:40 Expected date of discharge: 07/18/23 Attending physician: Sidney Fortune Primary care physician: [facility] Course: 87-year-old male with a past medical history of hypertension, hyperlipidemia, history of CVA with right-sided paralysis and speech problems - wheelchair and dementia, anxiety and prior history of smoking and also right carotid endarterectomy Patient is a resident of [facility]. The staff reported that the patient had become more weaker. In the 180 but does state patient had a stroke. Was unable to follow commands. Stroke was ruled out in the ER. Patient was found to be RSV positive. Hypoxic. Congested chest. At the [facility] his pulse ox was recorded to be 83%. And found to be tachycardic. Patient against rather tired this morning. Rattly chest. Short of breath. Able to answer occasional question. 07/12/2023: Patient more oriented today. Less delirious. Less congestion in the chest. Tired. Also found to have secondary bacterial infection. On IV ceftriaxone. 07/13/2023: Doing better today. Less congested the chest. Sitting up in a chair. Eating better. at the bedside. Continue DuoNeb. IV ceftriaxone. On 3 L of oxygen 07/14/2023: Patient seen and evaluated bedside, patient remains on 3 L of oxygen, patient been treated for RSV. Continue patient on breathing treatments. Pro- calcitonin 0.11 , continue IV antibiotics 07/15/2023: Patient seen and evaluated bedside, patient is alert and oriented times person and situation, antibiotic completed. Started on prednisone, patient does have episodes of confusion and delirium continue with frequent orientation 07/16/2023: Patient seen and evaluated bedside, patient is alert and answering questions does complain of chills. Patient noted to have elevated white cell count likely secondary to steroid will discontinue prednisone and monitor for 24 hours and potential discharge to rehab within the next 24 hours 07/17/2023: Patient seen and evaluated bedside, patient on 3 L of oxygen and does complain of feeling not well, complains of nausea. Blood work reviewed leukocytosis persist at follow up on CBC continue IV fluid. Does complain of cough and shortness of breath we will monitor for another 24 hours 07/18/2023: Patient seen and evaluated bedside, patient says breathing has improved, and 3 L of oxygen. Denies of shortness of breath denies nausea, abdominal pain. Plan to discharge to rehab facility WBC count 12.7. Afebrile CRP within normal limits. White count elevated due to steroid use PHYSICAL EXAMINATION: GENERAL: The patient is alert and oriented x3, ill appearance, nasal cannula in place HEENT: Pupils are round and equally reacting to light. EOMI. CARDIOVASCULAR: S1 and S2 present. No murmurs, rubs, or gallops. PULMONARY: Decreased breath sounds bilaterally ABDOMEN: Soft, nontender, nondistended, normoactive bowel sounds. No palpable organomegaly. MUSCULOSKELETAL: No joint swelling or deformity. EXTREMITIES: No cyanosis, clubbing, or pedal edema. NEUROLOGICAL: Gross neurological examination did not reveal any focal deficits. SKIN: No rashes. Assessment: Assessment and plan Acute RSV infection causing pneumonitis and hypoxia and acute delirium Sepsis secondary to RSV infection Acute hypoxic respiratory failure secondary to RSV Acute hypoxic encephalopathy IMPROVED * Completed IV Rocephin,Azithromycin * patient was on oral prednisone, albuterol as needed, steroids discontinued * Weaned from oxygen as tolerated * Bronchopulmonary hygeine 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 Patient Condition at Discharge: Good Plan - Discharge Summary Discharge Rx Participant: Yes New Discharge Prescriptions: New Budesonide [Pulmicort] 1 mg INHALATION RT-BID ml Melatonin 3 mg PO HS PRN 30 Days #30 tab PRN Reason: Insomnia Continue amLODIPine [Norvasc] 5 mg PO DAILY@0800 Tamsulosin [Flomax] 0.4 mg PO HS@2100 Atorvastatin [Lipitor] 10 mg PO HS@2100 Cholecalciferol (Vitamin D3) [Vitamin D3 (5000 Iu)] 125 mcg PO DAILY@1700 Ketoconazole 2% Shampoo [Nizoral] 1 applic TOPICAL DIRECTED Albuterol Inhaler [Ventolin Hfa Inhaler] 2 puff INHALATION RT-Q4H PRN PRN Reason: Shortness Of Breath Omeprazole 40 mg PO DAILY@1700 Ammonium Lactate Cream [Lac-Hydrin 12% Cream] 1 applic TOPICAL DAILY@0800 Triamcinolone 0.1% Cream [Kenalog 0.1% Cream] 1 applic TOPICAL BID PRN PRN Reason: ECZEMA/ITCHING guaiFENesin [guaiFENesin Oral Solution] 200 mg PO Q4H PRN PRN Reason: Cough EPINEPHrine (Auto Inject) [Epipen] 0.3 mg IM ONCE PRN PRN Reason: Anaphylaxis Magnesium Hydroxide [Milk of Magnesia] 2,400 mg PO Q48H PRN PRN Reason: Constipation Psyllium Husk 100% [Metamucil Packet] 6 gm PO BID@0800,1700 Niacinamide 500 mg PO BID@0800,1700 bisacodyL [Dulcolax] 10 mg RECTAL DAILY PRN PRN Reason: Constipation Na Phos,M-B/Na Phos,Di-Ba [Fleet Adult] 133 ml RECTAL DAILY PRN PRN Reason: Constipation Acetaminophen [Tylenol 8 Hour] 650 mg PO Q4H PRN PRN Reason: GENERAL DISCOMFORT Atropine Sulfate/Pf [Atropine 1% Eye Drops] 2 drop SUBLINGUAL BID@0800,1700 Multivitamins, Thera [Multivitamin (formulary)] 1 tab PO DAILY@1700 Discharge Medication List Atorvastatin [Lipitor] 10 mg PO HS@209907/09/18 [History] Tamsulosin [Flomax] 0.4 mg PO HS@209907/09/18 [History] amLODIPine [Norvasc] 5 mg PO DAILY@0807/09/18 [History] Cholecalciferol (Vitamin D3) [Vitamin D3 (5000 Iu)] 125 mcg PO DAILY@1700 10/03/20 [History] Ketoconazole 2% Shampoo [Nizoral] 1 applic TOPICAL DIRECTED 05/11/21 [History] Psyllium Husk 100% [Metamucil Packet] 6 gm PO BID@0800,1700 05/11/21 [History] Albuterol Inhaler [Ventolin Hfa Inhaler] 2 puff INHALATION RT-Q4H PRN 12/04/21 [History] Ammonium Lactate Cream [Lac-Hydrin 12% Cream] 1 applic TOPICAL DAILY@0800 12/04/21 [History] Niacinamide 500 mg PO BID@0800,1700 12/04/21 [History] Omeprazole 40 mg PO DAILY@1700 12/04/21 [History] Acetaminophen [Tylenol 8 Hour] 650 mg PO Q4H PRN 06/21/23 [History] Atropine Sulfate/Pf [Atropine 1% Eye Drops] 2 drop SUBLINGUAL BID@0800,1700 06/21/23 [History] EPINEPHrine (Auto Inject) [Epipen] 0.3 mg IM ONCE PRN 06/21/23 [History] Multivitamins, Thera [Multivitamin (formulary)] 1 tab PO DAILY@1700 06/21/23 [History] Na Phos,M-B/Na Phos,Di-Ba [Fleet Adult] 133 ml RECTAL DAILY PRN 06/21/23 [History] Triamcinolone 0.1% Cream [Kenalog 0.1% Cream] 1 applic TOPICAL BID PRN 06/21/23 [History] bisacodyL [Dulcolax] 10 mg RECTAL DAILY PRN 06/21/23 [History] guaiFENesin [guaiFENesin Oral Solution] 200 mg PO Q4H PRN 06/21/23 [History] Magnesium Hydroxide [Milk of Magnesia] 2,400 mg PO Q48H PRN 07/10/23 [History] Budesonide [Pulmicort] 1 mg INHALATION RT-BID ml 07/17/23 [Rx] Melatonin 3 mg PO HS PRN 30 Days #30 tab 07/17/23 [Rx] Follow up Appointment(s)/Referral(s): Jeffrey Balbuena DO [Primary Care Provider] - 1-2 days Discharge Disposition: TRANSFER TO SNF/ECF
[2023-07-18 14:35] VITALS: BP 136/71; RESP 15; TEMP 97.3
[2023-07-18 16:54] VITALS: PULSE 72
== END 2023-07-18 17:30 | DRG 871 ==
LOC: EC 18:57 → 6NMEDSUR 23:18 → OBSVTOIN 07-11 09:40 → 4SSUR 07-11 16:32
PROVIDERS: ADMIT Hospitalist; ATTEND Hospitalist
DX: A41.89 Other specified sepsis (principal); J12.1 Respiratory syncytial virus pneumonia; J96.01 Acute respiratory failure with hypoxia; F03.C4 Unspecified dementia, severe, with anxiety; G93.1 Anoxic brain damage, not elsewhere classified; I69.351 Hemiplegia and hemiparesis following cerebral infarction affecting right dominant side; E78.5 Hyperlipidemia, unspecified; G47.00 Insomnia, unspecified; I10 Essential (primary) hypertension; R53.81 Other malaise; K21.9 Gastro-esophageal reflux disease without esophagitis; K22.70 Barrett's esophagus without dysplasia; K59.00 Constipation, unspecified; N40.0 Benign prostatic hyperplasia without lower urinary tract symptoms; Z79.899 Other long term (current) drug therapy; Z71.3 Dietary counseling and surveillance; Z11.52 Encounter for screening for COVID-19; I69.322 Dysarthria following cerebral infarction; Z88.0 Allergy status to penicillin; Z87.891 Personal history of nicotine dependence
CPT/HCPCS: 36415; 70450; 71045; 71046; 80048; 80053; 81003; 83605; 83735; 84145; 84484; 85025; 85027; 85610; 85730; 86140; 87040; 87449; 87636; 93005; 94640; 94760; 96361; 96365; 96366; 96368; 96372; 99285

== ENCOUNTER 2024-01-30 07:47 | Day surgery (SDC) | payer MEDICARE, OTHER ==
[~2024-01-30 07:47] MED LIST changes: -CLINDAMYCIN 600 MG in DEXTROSE 5% IN WATER 50 ML IVPB ONE; -DEXAMETHASONE SOD PHOSPHATE 4 MG/ML 1 ML VIAL IV ONE; -FAMOTIDINE 20 MG/2 ML VIAL IV ONE; -LACTATED RINGERS 1,000 ML IV SCH; +LIDOCAINE 1% (10MG/ML) FOR IV START INTRADERMA PRN; -LIDOCAINE 1% 20 ML VIAL (10MG/ML) FOR IV START INTRADERMA PRN; -ONDANSETRON 4 MG/2 ML VIAL IVP ONE; +metroNIDAZOLE-NS PMX 500 MG in SALINE 1 100ML.BAG IVPB PRN
[2024-01-30] MEDS: IV FLUID CONTINUATION 1,000 ML IV ONE (08:11)
[2024-01-30] MEDS: LACTATED RINGERS 1,000 ML IV SCH (08:24)
[2024-01-30] MEDS: ONDANSETRON 4 MG/2 ML VIAL IVP ONE (08:40)
[2024-01-30] MEDS: DEXAMETHASONE SOD PHOSPHATE 4 MG/ML 1 ML VIAL IVP STA (08:44)
[2024-01-30] MEDS ORDERED: PROPOFOL 10 MG/ML 20 ML VIAL IV ONE (09:20)
[2024-01-30] MEDS ORDERED: ePHEDrine 50 MG/ML 1 ML VIAL ONE (09:20)
[2024-01-30] MEDS ORDERED: LIDOCAINE 1% INJ 10MG/ML (20 ML MDV) ONE (09:20)
[2024-01-30] MEDS ORDERED: PHENYLEPHRINE 10 MG/ML VIAL ONE (09:20)
[2024-01-30] MEDS ORDERED: WATER FOR INJECTION, STERILE 10 ML VIAL IV ONE (09:20)
[2024-01-30] MEDS: GELATIN SPONGE,ABSORB (SMALL) 1 EACH SPONGE MISCELLANE ONE (09:32)
[2024-01-30] MEDS: LIDOCAINE 2%-EPI 1:100,000 20 ML VIAL SQ ONE ×2 (09:32)
[2024-01-30 11:31] VITALS: TEMP 97.4
[2024-01-30 13:35] VITALS: BP 125/73; PULSE 60; RESP 18
--- NOTE | 2024-01-31 08:51 | OP ---
OPERATIVE REPORT DATE OF SERVICE : 01/30/2024 PREOPERATIVE DIAGNOSES: 1. Carious teeth. 2. Abscessed teeth. 3. Nonrestorable teeth. POSTOPERATIVE DIAGNOSES: 1. Carious teeth. 2. Abscessed teeth. 3. Nonrestorable teeth. PROCEDURE PERFORMED: Surgical extraction of remaining all teeth. ANESTHESIA: General via oral endotracheal intubation. ESTIMATED BLOOD LOSS: 5 mL. DRAINS: None. COMPLICATIONS: None. SPECIMENS: None. INDICATIONS FOR PROCEDURE: The patient is an 88-year-old male who is in a skilled nursing, who was referred by the general dentist for the removal of his remaining teeth prior to construction of a complete denture in the upper and lower jaw. The risks, benefits, and alternatives of the procedure were reviewed with the , who is the power of patent prosecution attorney, at length and all of her questions answered to her satisfaction. The patient will now undergo removal of these teeth in the OR setting. DESCRIPTION OF PROCEDURE: The patient was taken to the operating room, placed on the operating table in the supine position. Next, he was induced via the IV route and intubated orally and a general plane of anesthesia was maintained throughout the operative course. Surgeon then approached the operative field and the patient was prepped and draped in the usual manner for this procedure. Next, 2% lidocaine with 1:100,000 parts of epinephrine was used to provide a right and left inferior alveolar nerve block, buccal block, lingual block in addition to infiltration into the palatal and buccal maxillary tissues. The throat pack was then placed notifying both Nursing and Anesthesia. Attention was then directed to the lower left where teeth numbers 19, 20, 21, 22, 23, and 24 were removed. Envelope flap was developed in addition to bone removal around the teeth prior to elevator and forceps delivery. The wound was irrigated thoroughly. Alveoplasty was performed and the flap was reapproximated utilizing 3-0 gut in interrupted and running fashion. Attention was then directed to the upper left, where a similar technique was utilized to extract teeth numbers 10, 11, and 12. Attention was then directed to the lower right where teeth numbers 25, 26, 27, 28, 29 were also removed and the wound was sutured with 3-0 catgut. Attention was then directed to the upper right quadrant where teeth numbers 4, 5, 6 and 7 were removed utilizing similar technique and the wound was closed with 3-0 gut. Hemostasis was observed. The patient tolerated the procedure well without complications. A throat pack was removed notifying both Nursing and Anesthesia. MMODL / IJN: [id number] /
== END 2024-01-30 13:32 ==
LOC: OR 07:47
PROVIDERS: ATTEND Dentist Oral and Maxillofacial Surgery
DX: K02.9 Dental caries, unspecified (principal); K04.7 Periapical abscess without sinus; I10 Essential (primary) hypertension; E78.5 Hyperlipidemia, unspecified; J69.0 Pneumonitis due to inhalation of food and vomit; F03.90 Unspecified dementia, unspecified severity, without behavioral disturbance, psychotic disturbance, mood disturbance, and anxiety; K44.9 Diaphragmatic hernia without obstruction or gangrene; K21.9 Gastro-esophageal reflux disease without esophagitis; Z86.73 Personal history of transient ischemic attack (TIA), and cerebral infarction without residual deficits; Z86.69 Personal history of other diseases of the nervous system and sense organs; Z98.890 Other specified postprocedural states; Z79.899 Other long term (current) drug therapy; Z88.0 Allergy status to penicillin
CPT/HCPCS: 41899; 41874; J1100; J0690; J2405; J2001; J2704; J2371

== ENCOUNTER 2024-05-27 08:18 | Emergency (ER) | payer MEDICARE, OTHER ==
[2024-05-27 08:28] VITALS: RESP 18; TEMP 98
--- NOTE | 2024-05-27 08:30 | ED ---
Fall HPI - General Chief Complaint: Fall Stated Complaint: Fall/nausea Time Seen by Provider: 05/27/24 08:30 Source: patient, EMS, RN notes reviewed Mode of arrival: EMS - History of Present Illness Initial Comments: This is a 88-year-old male with a history of CVA with right-sided deficits presenting to the emergency department from [facility] via EMS for fall. Family limited as patient's baseline is altered due to above-stated condition primarily obtained via EMS and from nursing staff. Is reported that approximately 30 this morning patient had a fall out of his bed. Fall was unwitnessed. It is unsure if patient hit his head at this time of fall. Denies any blood thinners. currently he denies headache, dizziness, lightheadedness, nausea or vomiting. Denies pain. - Related Data Home Medications Medication Instructions Recorded Confirmed Atorvastatin [Lipitor] 10 mg PO HS@2100 07/09/18 01/29/24 Tamsulosin [Flomax] 0.4 mg PO HS@2100 07/09/18 01/29/24 amLODIPine [Norvasc] 5 mg PO DAILY@0800 07/09/18 01/29/24 Cholecalciferol (Vitamin D3) 125 mcg PO DAILY@1700 10/03/20 01/29/24 [Vitamin D3 (5000 Iu)] Ketoconazole 2% Shampoo [Nizoral] 1 applic TOPICAL DIRECTED 05/11/21 01/29/24 Psyllium Husk 100% [Metamucil 6 gm PO BID@0800,1700 05/11/21 01/29/24 Packet] Albuterol Inhaler [Ventolin Hfa 2 puff INHALATION RT-Q4H PRN 12/04/21 01/29/24 Inhaler] Ammonium Lactate Cream [Lac-Hydrin 1 applic TOPICAL DAILY@0800 12/04/21 01/29/24 12% Cream] Niacinamide 500 mg PO BID@0800,1700 12/04/21 01/29/24 Omeprazole 40 mg PO DAILY@169912/04/21 01/29/24 Acetaminophen [Tylenol 8 Hour] 650 mg PO Q4H PRN 06/21/23 01/29/24 EPINEPHrine (Auto Inject) [Epipen] 0.3 mg IM ONCE PRN 06/21/23 01/29/24 Multivitamins, Thera [Multivitamin 1 tab PO DAILY@1700 06/21/23 01/29/24 (formulary)] Na Phos,M-B/Na Phos,Di-Ba [Fleet 133 ml RECTAL DAILY PRN 06/21/23 01/29/24 Adult] Triamcinolone 0.1% Cream [Kenalog 1 applic TOPICAL BID PRN 06/21/23 01/29/24 0.1% Cream] bisacodyL [Dulcolax] 10 mg RECTAL DAILY PRN 06/21/23 01/29/24 guaiFENesin [guaiFENesin Oral 200 mg PO Q4H PRN 06/21/23 01/29/24 Solution] Magnesium Hydroxide [Milk of 2,400 mg PO Q48H PRN 07/10/23 01/29/24 Magnesia] Atropine Sulfate/Pf [Atropine 1% 2 each BOTH EYES BID 01/29/24 01/29/24 Eye Drops] Doxycycline Hyclate 100 mg PO BID 01/29/24 01/29/24 Ipratropium Nebulized [Atrovent 0.5 mg INHALATION Q6HR PRN 01/29/24 01/29/24 Nebulized 0.2 MG/ML] guaiFENesin [guaiFENesin ER] 600 mg PO BID 01/29/24 01/29/24 Previous Rx's Medication Instructions Recorded Budesonide [Pulmicort] 1 mg INHALATION RT-BID ml 07/17/23 Melatonin 3 mg PO HS PRN 30 Days #30 tab 07/17/23 Allergies Allergy/AdvReac Type Severity Reaction Status Date / Time bee venom protein (honey bee) Allergy Unknown Verified 05/27/24 08:28 Penicillins Allergy Unknown Verified 05/27/24 08:28 Childhood Review of Systems ROS Statement: Those systems with pertinent positive or pertinent negative responses have been documented in the HPI. ROS Other: All systems not noted in ROS Statement are negative. 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, uses wheelchair, has memory problems, hx falls, HIATAL HERNIA, BARRETTS ESOPHAGUS, eczema, History of Any Multi-Drug Resistant Organisms: None Reported Past Surgical History: Adenoidectomy, Tonsillectomy Additional Past Surgical History / Comment(s): rt carotid endarterrectomy, brain surgery for aneurysm, feeding tube/later removed, Past Anesthesia/Blood Transfusion Reactions: No Reported Reaction Past Psychological History: Anxiety Smoking Status: Former smoker - Past Family History Father History Unknown: Yes Mother Family Medical History: CVA/TIA, Dementia Additional Family Medical History / Comment(s): at age 94 or 95 General Exam Limitations: no limitations, language barrier, physical limitation General appearance: alert, in no apparent distress Head exam: Present: atraumatic, normocephalic, normal inspection Eye exam: Present: normal appearance, PERRL, EOMI. Absent: scleral icterus, conjunctival injection, periorbital swelling ENT exam: Present: normal exam, mucous membranes moist Neck exam: Present: normal inspection. Absent: tenderness, meningismus, lymphad enopathy Respiratory exam: Present: normal lung sounds bilaterally. Absent: respiratory distress, wheezes, rales, rhonchi, stridor Cardiovascular Exam: Present: regular rate, normal rhythm, normal heart sounds. Absent: systolic murmur, diastolic murmur, rubs, gallop, clicks GI/Abdominal exam: Present: soft, normal bowel sounds. Absent: distended, tenderness, guarding, rebound, rigid Extremities exam: Present: normal inspection, full ROM, normal capillary refill, other (right sided global weakness/deficits). Absent: tenderness, pedal edema, joint swelling, calf tenderness Back exam: Present: normal inspection Skin exam: Present: warm, dry, intact, normal color. Absent: rash Course Vital Signs 05/27/24 05/27/24 08:24 10:26 Temperature 98 F 98 F Pulse Rate 69 74 Respiratory 18 18 Rate Blood Pressure 138/66 143/73 O2 Sat by Pulse 93 L 96 Oximetry Medical Decision Making - Medical Decision Making Was pt. sent in by a medical professional or institution (YARI Hansen, TECHNOLOGY OFFICER, urgent care, hospital, or long-term...) When possible be specific @ -No Did you speak to anyone other than the patient for history (EMS, parent, family, police, friend...)? What history was obtained from this source @ -Patient's at bedside states the patient is at his baseline currently. Did you review nursing and triage notes (agree or disagree)? Why? @ -I reviewed and agree with nursing and triage notes Were old charts reviewed (outside hosp., previous admission, EMS record, old EKG, old radiological studies, urgent care reports/EKG's, long-term records)? Report findings @ -No old charts were reviewed Differential Diagnosis (chest pain, altered mental status, abdominal pain women, abdominal pain men, vaginal bleeding, weakness, fever, dyspnea, syncope, headache, dizziness, GI bleed, back pain, seizure, CVA, palpatations, mental health, musculoskeletal)? @ -ecchymosis, fracture, subdural hematoma, subarachnoid hemorrhage, cervical spine fracture, this list is not all inclusive EKG interpreted by me (3pts min.). @ -none X-rays interpreted by me (1pt min.). @ -None done CT interpreted by me (1pt min.). @ -CT brain and C-spine without contrast reveals a redemonstrated area of encephalomalacia relating to prior MCA territory no acute intracranial abnormality noted no acute fracture noted of the cervical spine U/S interpreted by me (1pt. min.). @ -None done What testing was considered but not performed or refused? (CT, X-rays, U/S, labs)? Why? @ -None What meds were considered but not given or refused? Why? @ -None Did you discuss the management of the patient with other professionals (professionals i.e. , PA, TECHNOLOGY OFFICER, lab, RT, psych nurse, social work associate, master [place], teacher, executive vice president and chief financial officer, watch caser)? Give summary @ -No Was smoking cessation discussed for >3mins.? @ -No Was critical care preformed (if so, how long)? @ -No Were there social determinants of health that impacted care today? How? (Homelessness, low income, unemployed, alcoholism, drug addiction, transportation, low edu. Level, literacy, decrease access to med. care, penitentiary, rehab)? @ -No Was there de-escalation of care discussed even if they declined (Discuss DNR or withdrawal of care, Hospice)? DNR status @ -No What co-morbidities impacted this encounter? (DM, HTN, Smoking, COPD, CAD, Cancer, CVA, ARF, Chemo, Hep., AIDS, mental health diagnosis, sleep apnea, morbid obesity)? @ -None Was patient admitted / discharged? Hospital course, mention meds given and route, prescriptions, significant lab abnormalities, going to OR and other pertinent info. @ -Discharge. 88-year-old male with a fall. On evaluation patient is resting comfortably. He is noted to have global right sided deficits no acute new findings. CT of the chest and C-spine without contrast unremarkable for acute process. Patient is stable for discharge back to nursing facility at this time. Discussed with Dr. Ramirez Undiagnosed new problem with uncertain prognosis? @ -No Drug Therapy requiring intensive monitoring for toxicity (Heparin, Nitro, Insulin, Cardizem)? @ -No Were any procedures done? @ -No Diagnosis/symptom? @ -fall Acute, or Chronic, or Acute on Chronic? @ -acute Uncomplicated (without systemic symptoms) or Complicated (systemic symptoms)? @ -uncomplicated Side effects of treatment? @ -No Exacerbation, Progression, or Severe Exacerbation? @ -No Poses a threat to life or bodily function? How? (Chest pain, [place], MT, pneumonia, PE, COPD, DKA, ARF, appy, cholecystitis, CVA, Diverticulitis, Homicidal, Suicidal, threat to staff... and all critical care pts) @ -No Disposition Clinical Impression: Fall Disposition: HOME SELF-CARE Condition: Good Instructions (If sedation given, give patient instructions): Fall Prevention for Older Adults (ED) Additional Instructions: Please return to the Emergency Department if symptoms worsen or any other concerns. Is patient prescribed a controlled substance at d/c from ED?: No Referrals: Jeffrey Balbuena DO [Primary Care Provider] - 1-2 days Time of Disposition: 10:00
--- NOTE | 2024-05-27 09:32 | CT ---
EXAMINATION TYPE: CT brain cspine wo con DATE OF EXAM: 05/27/2024 9:11 AM COMPARISON: CT brain 07/10/2023 CLINICAL INDICATION: Male, 88 years old with history of fall, Fall this AM at intermediate unable to determine if he struck his head, poor historian, pain Technique: Examination of the head was done in axial plane without intravenous contrast. Coronal and sagittal reconstructions performed. CT of the cervical spine was obtained in axial plane without intravenous injection of contrast mater ial. Coronal and sagittal reformatted images were obtained from the axial views for evaluation of f ractures, spinal alignment and canal. CT DLP: 1506.1 mGycm, Automated exposure control for dose reduction was used. FINDINGS: Head: [id number] generalized cerebral cortical volume loss redemonstrated. Extensive encephalomalacia redemonstrated left MCA territory. Mild ventriculomegaly is unchanged. Metal clip located at the lef t parasellar region. No extra-axial fluid collection or acute intracranial hemorrhage is seen. No midline shift, herniatio n, or mass effect. Moderate mucosal thickening ethmoid air cells. Orbits and globes are intact. Cervical spine: Mild emphysematous changes in the visualized upper lungs. Some scattered groundglass interstitial den sity in the right lung. Possible abnormal debris distending the thoracic esophagus. Exam Limited by patient positioning. No craniocervical junction abnormality, predental space widening, or prevertebral soft tissue swellin g. Degenerative change of the C1 dens articulation. Reversal of the normal cervical lordosis and a leftward curvature is noted. Moderate to severe multil evel disposition the degenerative change. Degenerative grade 1 anterolisthesis C2-C3, C4-C5, and C7-T1. Grade 1 retrolisthesis C5-C6 and C6/C7. Multilevel hypertrophic facet and uncovertebral joint arthropathy. The lung for the exam limitations, no definite acute fracture is identified. Cerebral moderate to severe neuroforaminal stenoses are pr esent. COMBINED IMPRESSION: 1. Redemonstrated large area of encephalomalacia or relating to prior MCA territory infarct on the le ft. 2. Similar cerebral atrophy and mild hydrocephalus likely on an ex vacuo basis. No acute intracranial abnormality seen. 3. Moderate to advanced multilevel spondylotic change in the cervical spine. Assessment limited due t o patient's positioning. No acute fracture seen. 4. Degenerative grade 1 spondylolisthesis C2-C3, C4-C5, C5-C6, C6/C7, C7-T1. Vertebral moderate to se reza neuroforaminal stenoses throughout. 5. Debris retained within the thoracic esophagus. In addition, there is some interstitial groundglass change in the right lung. Correlate to exclude early atypical or aspiration pneumonia. [facility], Workstation: 3, 05/27/2024 9:30 AM
[2024-05-27 10:28] VITALS: BP 143/73; PULSE 74
== END 2024-05-27 10:28 | disposition home or self-care (01) ==
LOC: EC 08:18
DX: R11.0 Nausea (principal); Z86.73 Personal history of transient ischemic attack (TIA), and cerebral infarction without residual deficits; Z87.891 Personal history of nicotine dependence; Z88.0 Allergy status to penicillin; Z91.030 Bee allergy status; W06.XXXA Fall from bed, initial encounter
CPT/HCPCS: 70450; 72125; 99284

== ENCOUNTER → 2024-06-27 | Outpatient (CLI) | payer MEDICARE, OTHER ==
[2024-06-27 12:29] LABS: African American GFR (CKD) >90 (>60 ml/min/1.73 sqM); Blood Urea Nitrogen 34 mg/dL (9-20); Non-African American GFR(CKD) 79 (>60 ml/min/1.73 sqM)
--- NOTE | 2024-06-27 14:41 | CT ---
EXAMINATION TYPE: CT soft tissue neck wo/w con CT DLP: 731 mGycm, Automated exposure control for dose reduction was used. DATE OF EXAM: 06/27/2024 1:09 PM COMPARISON: CT brain C-spine 05/27/2024. 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 Axial sections with coronal and sagittal reformats were obtained. FINDINGS: Brain: Partial visualization of encephalomalacia of within the left MCA distribution with adjacent po stsurgical changes from left temporal craniotomy. Postsurgical changes with surgical clip identified along the cavernous portion of left internal carotid artery. Orbits: Bilateral aphakia. Sinuses: Grossly unremarkable. Suprahyoid Neck: The oropharynx, oral cavity, parapharyngeal and retropharyngeal spaces are clear and symmetric. The nasopharynx is unremarkable. No definitive lesion identified. Infrahyoid Neck: The larynx, hypopharynx, and supraglottic area are clear and symmetric. Parotid Glands: Punctate calcification within the right parotid gland. The left parotid gland is unre markable.. Submandibular Glands: Unremarkable. Musculoskeletal: Degenerative disc disease changes of the visualized spine are present. Reversal of the normal cervical lordosis. Lymph nodes: No pathologically enlarged lymph nodes identified. Vascular structures: Moderate to severe atherosclerotic calcifications of the internal carotid arteri es. Atherosclerotic calcification of the aortic arch and its branches. Additional atherosclerotic flaco cification the bilateral subclavian arteries. Thoracic Inlet/airway: Airway is patent. Biapical pleural-parenchymal scarring. Centrilobular emphyse matous changes. Soft tissues/Thyroid: Thyroid and remainder of the soft tissues are unremarkable. Other: none. IMPRESSION 1. No definite lesion corresponding to reported oral cavity malignancy identified. No definitive evid ence for metastatic disease within the neck. 2. Encephalomalacia from prior left MCA territory infarct. [facility], , 06/27/2024 2:39 PM
== END | disposition home or self-care (01) ==
LOC: RADCTMAIN 11:10
PROVIDERS: ATTEND Family Medicine
DX: D00.00 Carcinoma in situ of oral cavity, unspecified site (principal); G93.89 Other specified disorders of brain; Z86.73 Personal history of transient ischemic attack (TIA), and cerebral infarction without residual deficits
CPT/HCPCS: 82565; 84520; 70492; 36415; Q9967

== ENCOUNTER 2024-08-15 20:49 | Inpatient (IN) | payer MEDICARE, OTHER ==
--- NOTE | 2024-08-15 21:34 | ED ---
General Adult HPI - General Chief complaint: Fever Stated complaint: Fever Source: EMS Mode of arrival: EMS Limitations: physical limitation - History of Present Illness Initial comments: Dictation was produced using [employer] dictation software. please excuse any grammatical, word or spelling errors. Chief Complaint: 88-year-old male from [facility] for fever History of Present Illness: Patient is a 88-year-old male presents emergency department from [facility]. Patient allegedly had a fever. History present illness obtained from at the bedside. 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 He is at [facility] and has recently in July had cancer excision. Since yesterday has had a fever. Patient unreliable historian at this time. reports no known history of recent coughing or complaints. The ROS documented in this emergency department record has been reviewed and confirmed by me. Those systems with pertinent positive or negative responses have been documented in the HPI. All other systems are other negative and/or noncontributory. - Related Data Home Medications Medication Instructions Recorded Confirmed Atorvastatin [Lipitor] 10 mg PO HS@2100 07/09/18 01/29/24 Tamsulosin [Flomax] 0.4 mg PO HS@2100 07/09/18 01/29/24 amLODIPine [Norvasc] 5 mg PO DAILY@0800 07/09/18 01/29/24 Cholecalciferol (Vitamin D3) 125 mcg PO DAILY@1700 10/03/20 01/29/24 [Vitamin D3 (5000 Iu)] Ketoconazole 2% Shampoo [Nizoral] 1 applic TOPICAL DIRECTED 05/11/21 01/29/24 Psyllium Husk 100% [Metamucil 6 gm PO BID@0800,1700 05/11/21 01/29/24 Packet] Albuterol Inhaler [Ventolin Hfa 2 puff INHALATION RT-Q4H PRN 12/04/21 01/29/24 Inhaler] Ammonium Lactate Cream [Lac-Hydrin 1 applic TOPICAL DAILY@0800 12/04/21 01/29/24 12% Cream] Niacinamide 500 mg PO BID@0800,1700 12/04/21 01/29/24 Omeprazole 40 mg PO DAILY@1700 12/04/21 01/29/24 Acetaminophen [Tylenol 8 Hour] 650 mg PO Q4H PRN 06/21/23 01/29/24 EPINEPHrine (Auto Inject) [Epipen] 0.3 mg IM ONCE PRN 06/21/23 01/29/24 Multivitamins, Thera [Multivitamin 1 tab PO DAILY@1700 06/21/23 01/29/24 (formulary)] Na Phos,M-B/Na Phos,Di-Ba [Fleet 133 ml RECTAL DAILY PRN 06/21/23 01/29/24 Adult] Triamcinolone 0.1% Cream [Kenalog 1 applic TOPICAL BID PRN 06/21/23 01/29/24 0.1% Cream] bisacodyL [Dulcolax] 10 mg RECTAL DAILY PRN 06/21/23 01/29/24 guaiFENesin [guaiFENesin Oral 200 mg PO Q4H PRN 06/21/23 01/29/24 Solution] Magnesium Hydroxide [Milk of 2,400 mg PO Q48H PRN 07/10/23 01/29/24 Magnesia] Atropine Sulfate/Pf [Atropine 1% 2 each BOTH EYES BID 01/29/24 01/29/24 Eye Drops] Doxycycline Hyclate 100 mg PO BID 01/29/24 01/29/24 Ipratropium Nebulized [Atrovent 0.5 mg INHALATION Q6HR PRN 01/29/24 01/29/24 Nebulized 0.2 MG/ML] guaiFENesin [guaiFENesin ER] 600 mg PO BID 01/29/24 01/29/24 Previous Rx's Medication Instructions Recorded Budesonide [Pulmicort] 1 mg INHALATION RT-BID ml 07/17/23 Melatonin 3 mg PO HS PRN 30 Days #30 tab 07/17/23 Allergies Allergy/AdvReac Type Severity Reaction Status Date / Time bee venom protein (honey bee) Allergy Unknown Verified 08/15/24 20:56 Penicillins Allergy Unknown Verified 08/15/24 20:56 Childhood Review of Systems ROS Statement: Those systems with pertinent positive or pertinent negative responses have been documented in the HPI. ROS Other: All systems not noted in ROS Statement are negative. 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, uses wheelchair, has memory problems, hx falls, HIATAL HERNIA, BARRETTS ESOPHAGUS, eczema, History of Any Multi-Drug Resistant Organisms: None Reported Past Surgical History: Adenoidectomy, Tonsillectomy Additional Past Surgical History / Comment(s): rt carotid endarterrectomy, brain surgery for aneurysm, feeding tube/later removed, Past Anesthesia/Blood Transfusion Reactions: No Reported Reaction Past Psychological History: Anxiety Smoking Status: Former smoker - Past Family History Father History Unknown: Yes Mother Family Medical History: CVA/TIA, Dementia Additional Family Medical History / Comment(s): at age 94 or 95 General Exam - General Exam Comments Initial Comments: PHYSICAL EXAM: General Impression: Alert and oriented x2/4, not in acute distress HEENT: Normocephalic atraumatic, extra-ocular movements intact, pupils equal and reactive to light bilaterally, dry mucous membranes Cardiovascular: Heart regular rate and rhythm Chest: Able to complete full sentences, no retractions, no tachypnea Abdomen: abdomen soft, non-tender, non-distended, no organomegaly Musculoskeletal: Pulses present and equal in all extremities, no peripheral edema Motor: no focal deficits noted Neurological: CN II-XII grossly intact, no focal motor or sensory deficits noted Skin: Intact with no visualized rashes, mild erythema and dry skin to the Psych: Normal affect and mood Limitations: physical limitation Course Vital Signs 08/15/24 08/15/24 20:53 23:17 Temperature 100.4 F H 98.1 F Pulse Rate 95 96 Respiratory 17 18 Rate Blood Pressure 131/61 131/58 O2 Sat by Pulse 92 L 97 Oximetry EKG Findings - EKG Comments: EKG Findings:: My EKG interpretation: Ventricular rate 93, sinus rhythm,. 176, QRS 72, QTc 359. No SC prolongation, no QTC prolongation, no ST or T-wave changes noted. Overall, this EKG is unremarkable Medical Decision Making - Medical Decision Making Was pt. sent in by a medical professional or institution (, PA, [employer]CROWAVE RADIO TECHNICIAN, urgent care, hospital, or senior care...) When possible be specific @ -No Did you speak to anyone other than the patient for history (EMS, parent, family, police, friend...)? What history was obtained from this source @ -See above Did you review nursing and triage notes (agree or disagree)? Why? @ -I reviewed and agree with nursing and triage notes Were old charts reviewed (outside hosp., previous admission, EMS record, old EK G, old radiological studies, urgent care reports/EKG's, senior care records)? Report findings @ -No old charts were reviewed Differential Diagnosis (chest pain, altered mental status, abdominal pain women, abdominal pain men, vaginal bleeding, musculoskeletal, weakness, fever, dyspnea, syncope, headache, dizziness, GI bleed, back pain, seizure, CVA, palpatations, mental health)? @ -Differential Fever: Pneumonia, viral URI, endocarditis, myocarditis, pericarditis, otitis, sinusitis, peritonsillar Abscess, retropharyngeal Abscess, epiglottitis, peritonitis, appendicitis, Lindsay cystitis, diverticulitis, hepatitis, colitis, UTI, PID, TOA, pyelonephritis, prostatitis, epididymitis, meningitis, encephalitis, pulmonary embolism, CVA, thyroid storm, pancreatitis, adrenal crisis, cavernous sinus thrombosis, this is not meant to be an all-inclusive list. EKG interpreted by me (3pts min.). @ -As above X-rays interpreted by me (1pt min.). @ -Chest x-ray unremarkable CT interpreted by me (1pt min.). @ -None done U/S interpreted by me (1pt. min.). @ -None done What testing was considered but not performed or refused? (CT, X-rays, U/S, labs)? Why? @ -None What meds were considered but not given or refused? Why? @ -None Was smoking cessation discussed for >3mins.? @ -No Were there social determinants of health that impacted care today? How? (Homelessness, low income, unemployed, alcoholism, drug addiction, transportation, low edu. Level, literacy, decrease access to med. care, residential, rehab)? @ -No Was there de-escalation of care discussed even if they declined (Discuss DNR or withdrawal of care, Hospice)? DNR status @ -No What co-morbidities impacted this encounter? (DM, HTN, Smoking, COPD, CAD, Cancer, CVA, ARF, Chemo, Hep., AIDS, mental health diagnosis, sleep apnea, m orbid obesity)? @ -Debility, CVA Was patient admitted / discharged? Hospital course, mention meds given and route, prescriptions, significant lab abnormalities, going to OR and other pertinent info. @ -88-year-old male presents to the emergency department fever. Patient poor historian. History present illness received from at the bedside. Vital signs upon arrival shows rectal temperature of 100.4. Patient otherwise well- appearing with no focal symptoms. Chest x-ray is nonacute. Laboratory evaluation shows leukocytosis 22.2. Metabolic panel shows normal lactic. Troponin 0.046. Urinalysis negative. Viral testing negative. Clinical presentation concerning with SIRS given patient's age and debility and comorbidities he is covered with broad-spectrum antibiotics. Pending blood cultures and urine cultures. Did you discuss the management of the patient with other professionals (professionals i.e. , PA, [employer]OWAVE RADIO TECHNICIAN, lab, RT, psych nurse, social services aide, grating machine operator, teacher, forward air controller/air officer, rehabilitation case coordinator)? Give summary @ -Discussed with hospitalist for admission Was critical care preformed (if so, how long)? @ -No Undiagnosed new problem with uncertain prognosis? @ -No Drug Therapy requiring intensive monitoring for toxicity (Heparin, Nitro, Insulin, Cardizem)? @ -No Were any procedures done? @ -No Diagnosis/symptom? Acute, or Chronic, or Acute on Chronic? Uncomplicated (w ithout systemic symptoms) or Complicated (systemic symptoms)? @ -SIRS/Sepsis Side effects of treatment? @ -No Exacerbation, Progression, or Severe Exacerbation? @ -No Poses a threat to life or bodily function? How? (Chest pain, USA, MD, pneumonia, PE, COPD, DKA, ARF, appy, cholecystitis, CVA, Diverticulitis, Homicidal, Suicidal, threat to staff... and all critical care pts) @ -yes - Lab Data Result diagrams: 08/15/24 21:27 08/15/24 21:27 Lab Results 08/15/24 08/15/24 08/15/24 Range/Units : 21:: WBC 22.2 H (3.8-10.6) k/uL RBC 3.89 L (4.30-5.90) m/uL Hgb 11.9 L (13.0-17.5) gm/dL Hct 36.8 L (39.0-53.0) % MCV 94.7 (80.0-100.0) fL MCH 30.7 (25.0-35.0) pg MCHC 32.4 (31.0-37.0) g/dL RDW 14.7 (11.5-15.5) % Plt Count 297 (150-450) k/uL MPV 7.2 Neutrophils % 91 % Lymphocytes % 5 % Monocytes % 3 % Eosinophils % 0 % Basophils % 0 % Neutrophils # 20.1 H (1.3-7.7) k/uL Lymphocytes # 1.1 (1.0-4.8) k/uL Monocytes # 0.7 (0-1.0) k/uL Eosinophils # 0.1 (0-0.7) k/uL Basophils # 0.0 (0-0.2) k/uL Hypochromasia Slight Sodium 141 (137-145) mmol/L Potassium 4.9 (3.5-5.1) mmol/L Chloride 101 (98-107) mmol/L Carbon Dioxide 30 (22-30) mmol/L Anion Gap 10 mmol/L BUN 38 H (9-20) mg/dL Creatinine 1.04 (0.66-1.25) mg/dL Est GFR (CKD-EPI)AfAm 75 (>60 ml/min/1.73 sqM) Est GFR (CKD-EPI)NonAf 65 (>60 ml/min/1.73 sqM) Glucose 166 H (74-99) mg/dL Plasma Lactic Acid Chago (0.7-2.0) mmol/L Calcium 9.5 (8.4-10.2) mg/dL Total Bilirubin 1.0 (0.2-1.3) mg/dL AST 29 (17-59) U/L ALT 16 (4-49) U/L Alkaline Phosphatase 96 (38-126) U/L Troponin I (0.000-0.034) ng/mL Total Protein 7.1 (6.3-8.2) g/dL Albumin 3.6 (3.5-5.0) g/dL Urine Color Urine Appearance (Clear) Urine pH (5.0-8.0) Ur Specific Cl[place] (1.001-1.035) Urine Protein (Negative) Urine Glucose (UA) (Negative) Urine Ketones (Negative) Urine Blood (Negative) Urine Nitrite (Negative) Urine Bilirubin (Negative) Urine Urobilinogen (<2.0) mg/dL Ur Leukocyte Esterase (Negative) Influenza Type A (PCR) Not Detected (Not Detectd) Influenza Type B (PCR) Not Detected (Not Detectd) RSV (PCR) Not Detected (Not Detectd) SARS-CoV-2 (PCR) Not Detected (Not Detectd) 08/15/24 08/15/24 08/15/24 Range/Units 21:27 21:27 23:16 WBC (3.8-10.6) k/uL RBC (4.30-5.90) m/uL Hgb (13.0-17.5) gm/dL Hct (39.0-53.0) % MCV (80.0-100.0) fL MCH (25.0-35.0) pg MCHC (31.0-37.0) g/dL RDW (11.5-15.5) % Plt Count (150-450) k/uL MPV Neutrophils % % Lymphocytes % % Monocytes % % Eosinophils % % Basophils % % Neutrophils # (1.3-7.7) k/uL Lymphocytes # (1.0-4.8) k/uL Monocytes # (0-1.0) k/uL Eosinophils # (0-0.7) k/uL Basophils # (0-0.2) k/uL Hypochromasia Sodium (137-145) mmol/L Potassium (3.5-5.1) mmol/L Chloride (98-107) mmol/L Carbon Dioxide (22-30) mmol/L Anion Gap mmol/L BUN (9-20) mg/dL Creatinine (0.66-1.25) mg/dL Est GFR (CKD-EPI)AfAm (>60 ml/min/1.73 sqM) Est GFR (CKD-EPI)NonAf (>60 ml/min/1.73 sqM) Glucose (74-99) mg/dL Plasma Lactic Acid Chago 1.3 (0.7-2.0) mmol/L Calcium (8.4-10.2) mg/dL Total Bilirubin (0.2-1.3) mg/dL AST (17-59) U/L ALT (4-49) U/L Alkaline Phosphatase (38-126) U/L Troponin I 0.046 H* (0.000-0.034) ng/mL Total Protein (6.3-8.2) g/dL Albumin (3.5-5.0) g/dL Urine Color Light Yellow Urine Appearance Clear (Clear) Urine pH 6.0 (5.0-8.0) Ur Specific [place] 1.017 (1.001-1.035) Urine Protein Trace H (Negative) Urine Glucose (UA) Negative (Negative) Urine Ketones Negative (Negative) Urine Blood Negative (Negative) Urine Nitrite Negative (Negative) Urine Bilirubin Negative (Negative) Urine Urobilinogen <2.0 (<2.0) mg/dL Ur Leukocyte Esterase Negative (Negative) Influenza Type A (PCR) (Not Detectd) Influenza Type B (PCR) (Not Detectd) RSV (PCR) (Not Detectd) SARS-CoV-2 (PCR) (Not Detectd) Disposition Clinical Impression: SIRS (systemic inflammatory response syndrome) Disposition: ADMITTED IP TO THIS HOSP Condition: Fair Referrals: Jeffrey Balbuena DO [Primary Care Provider] - 1-2 days Decision Time: 00:23
[2024-08-15 21:37] LABS: Basophils % (A) 0 %; Eosinophils # (A) 0.1 k/uL (0-0.7); Eosinophils % (A) 0 %; HCT 36.8 % (39.0-53.0); HGB 11.9 gm/dL (13.0-17.5); Hypochromasia Slight; Lymphocytes # (A) 1.1 k/uL (1.0-4.8); Lymphocytes % (A) 5 %; MCH 30.7 pg (25.0-35.0); MCHC 32.4 g/dL (31.0-37.0); MCV 94.7 fL (80.0-100.0); Mean Platelet Volume 7.2; Monocytes # (A) 0.7 k/uL (0-1.0); Monocytes % (A) 3 %; Neutrophils # (A) 20.1 k/uL (1.3-7.7); Neutrophils % (A) 91 %; Platelet Count 297 k/uL (150-450); RBC 3.89 m/uL (4.30-5.90); RDW 14.7 % (11.5-15.5); WBC 22.2 k/uL (3.8-10.6)
[2024-08-15] MEDS: SODIUM CHLORIDE 0.9% 1,000 ML IV STA (21:38)
[2024-08-15] MEDS: ACETAMINOPHEN TAB 500 MG TAB PO STA (21:44)
[2024-08-15 22:00] LABS: ALT 16 U/L (4-49); African American GFR (CKD) 75 (>60 ml/min/1.73 sqM); Albumin 3.6 g/dL (3.5-5.0); Anion Gap 10 mmol/L; Blood Urea Nitrogen 38 mg/dL (9-20); Calcium 9.5 mg/dL (8.4-10.2); Carbon Dioxide 30 mmol/L (22-30); Chloride 101 mmol/L (98-107); Glucose 166 mg/dL (74-99); Non-African American GFR(CKD) 65 (>60 ml/min/1.73 sqM); Sodium 141 mmol/L (137-145); Total Protein 7.1 g/dL (6.3-8.2)
[2024-08-15 22:12] LABS: Influenza A Not Detected (Not Detectd); Influenza B Not Detected (Not Detectd); RSV Not Detected (Not Detectd)
[2024-08-15 22:20] LABS: AST 29 U/L (17-59); Alkaline Phosphatase 96 U/L (38-126); Potassium 4.9 mmol/L (3.5-5.1)
[2024-08-15] MEDS ORDERED: VANCOMYCIN IV PER PHARMACY 1 EACH MISC MISCELLANE PRN (22:26)
[2024-08-15] MEDS: CEFEPIME 2 GM in SODIUM CHLORIDE 0.9% 100 ML IVPB STA (23:05)
--- NOTE | 2024-08-15 23:15 | XR ---
EXAM: XR Chest, 2 Views CLINICAL HISTORY: ITS.REASON XR Reason: fever TECHNIQUE: Frontal and lateral views of the chest. COMPARISON: 07/17/2023 FINDINGS: Lungs: No consolidation. No overt edema. Pleural space: No pleural effusion. No pneumothorax. Heart: Unremarkable. No cardiomegaly. Bones/joints: Unremarkable. No fracture or malalignment. Upper abdomen: Elevated right hemidiaphragm. IMPRESSION: No acute findings in the chest.
[2024-08-15 23:40] LABS: Appearance,Urine Clear (Clear); Bilirubin,Urine Negative (Negative); Blood,Urine Negative (Negative); Color,Urine Light Yellow; Glucose,Urine (UA) Negative (Negative); Ketones,Urine Negative (Negative); Leukocyte Esterase,Urine Negative (Negative); Nitrite,Urine Negative (Negative); Protein,Urine Trace (Negative); Specific Gravity,Urine 1.017 (1.001-1.035); Urobilinogen,Urine <2.0 mg/dL (<2.0)
[2024-08-15] MEDS: VANCOMYCIN 1,250 MG in SODIUM CHLORIDE 0.9% 250 ML IVPB ONE (23:47)
[2024-08-16] MEDS ORDERED: NALOXONE 0.4 MG/ML 1 ML VIAL IV PRN (00:17)
[2024-08-16] MEDS: SODIUM CHLORIDE 0.9% 1,000 ML IV SCH (01:51)
[2024-08-16] MEDS ORDERED: ACETAMINOPHEN TAB 325 MG TAB PO PRN (12:09)
[2024-08-16] MEDS ORDERED: NA PHOS,M-B/NA PHOS,DI-BA 133 ML ENEMA RECTAL PRN (12:09)
[2024-08-16] MEDS ORDERED: bisacodyL 10 MG SUPP RECTAL PRN (12:09)
[2024-08-16] MEDS ORDERED: ALBUTEROL HFA INHALER INHALATION PRN (12:09)
[2024-08-16] MEDS ORDERED: MAGNESIUM HYDROXIDE 2,400 MG/30 ML CUP PO PRN (12:09)
[2024-08-16] MEDS ORDERED: HYDROcodone/APAP 7.5-325MG 1 EACH TAB PO PRN (12:09)
[2024-08-16] MEDS ORDERED: guaiFENesin SYRUP 100MG/5ML 200 MG/10 ML CUP PO PRN (12:09)
[2024-08-16] MEDS ORDERED: traMADol 50 MG TAB PO PRN (12:09)
[2024-08-16] MEDS ORDERED: IPRATROPIUM-ALBUTEROL 3 ML NEB INHALATION PRN (12:09)
[2024-08-16] MEDS: ENOXAPARIN 40 MG/0.4 ML SYRINGE SQ SCH (13:34)
[2024-08-16] MEDS: amLODIPine 5 MG TAB PO SCH (13:35)
[2024-08-16] MEDS ORDERED: NON FORMULARY DRUG (Magic Cup 1 EACH Ml) PO SCH (17:00)
[2024-08-16] MEDS ORDERED: NUTRITIONAL SUPPLEMENT PO SCH (17:00)
[2024-08-16] MEDS: CHOLECALCIFEROL 125 MCG (5000 IU) TABLET PO SCH (18:11)
[2024-08-16] MEDS: NIACIN TR 500 MG CAPLET PO SCH (18:11)
[2024-08-16] MEDS: MULTIVITAMINS, THERA 1 EACH TAB PO SCH (18:11)
[2024-08-16] MEDS: PANTOPRAZOLE 40 MG TABLET PO SCH (18:11)
[2024-08-16] MEDS: ATROPINE OPHTH SOLN 1% 5ML BTL SUBLINGUAL SCH (18:12)
[2024-08-16] MEDS ORDERED: LORazepam 2 MG/ML INJ IV PRN (18:36)
[2024-08-16] MEDS ORDERED: CALCIUM CARBONATE 500 MG CHEWABLE PO PRN (18:36)
--- NOTE | 2024-08-16 18:41 | P.HPIM ---
History of Present Illness H&P Date: 08/16/24 Chief Complaint: Fever 88-year-old male with a past medical history of hypertension, hyperlipidemia, history of CVA with right-sided paralysis and speech problems - wheelchair and dementia, anxiety and prior history of smoking and also right carotid endarterectomy resident of [facility]. Patient himself not able to give much of history. Keeps repeating things. As per the EMS run sheet staff informed patient had a recent procedure done to his mouth. Has been refusing all medications since then. Noticed to have a fever. Family decided to send him therefore to the ER. Review of systems: Cannot obtain for the patient as he only repeats himself sometimes. Past medical history to include: Hypertension, hyperlipidemia, BPH, moderate cognitive impairment from prior stroke, GERD, right-sided weakness from prior stroke, dysarthria, chronic medical debility using a wheelchair, Harris's esophagus Social history: . smoked for about 35 years, cigars. Stop smoking about 24 years ago. Uses a wheelchair -at [facility] PHYSICAL EXAMINATION: VITAL SIGNS: 100.4, 95, 17, 131 x 61, 92% room air on presentation GENERAL: Reclining in bed, awake a bit tired appearing EYES: Pupils equal. Conjunctiva normal. HEENT: External appearance of nose and ears normal, oral cavity-dry mucous NECK: JVD not raised; masses not palpable. HEART: First and second heart sounds are normal; no edema. LUNGS: Respiratory rate normal, decreased breath sound. ABDOMEN: Soft, nontender, liver spleen not palpable, no masses palpable. PSYCH: Keeps repeating himself MUSCULOSKELETAL:No Clubbing/cyanosis;muscles-grossly intact. Evidence of OA. Loss of muscle mass and subcutaneous fat. Prominent bones NEUROLOGICAL: . dysarthria. Right arm weakness with hand contracture. Mild right leg weakness. INVESTIGATIONS, reviewed in the clinical context: August 15, 2024: White count 22.2 hemoglobin 11.9 platelets 297 sodium 141 potassium 4.9 BUN 38 creatinine 1.04 Troponin I 0.046 UA: Trace protein Influenza type A, type B, RSV, COVID-19: Not detected EKG tracing personally reviewed by me-normal sinus rhythm. Nonspecific ST changes. Chest x-ray film personally reviewed by me-probable right base infiltrate Assessment and plan: -Right basal pneumonia suspect gram-negative organism IV ceftriaxone 2 g daily -Patient had a tooth procedure done since then not be eating Changed to ground diet. Supervised - severe cognitive impairment from advanced dementia - Harris's esophagus PPI Essential Hypertension -Amlodipine -Hyperlipidemia Lipitor -Clinically protein calorie malnutrition loss of muscle mass subcutaneous fat. Recheck albumin after hydration. Compact Ensure 1 can 3 times daily GERD -PPI BPH -Flomax -Right-sided paresis with right arm contracture with right arm weakness more than the Márquez from prior stroke and chronic dysarthria -Positive troponin. Probably from hemodynamic mismatch in the setting of infection. Monitor telemetry. 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, uses wheelchair, has memory problems, hx falls, HIATAL HERNIA, BARRETTS ESOPHAGUS, eczema, History of Any Multi-Drug Resistant Organisms: None Reported Past Surgical History: Adenoidectomy, Tonsillectomy Additional Past Surgical History / Comment(s): rt carotid endarterrectomy, brain surgery for aneurysm, feeding tube/later removed, Past Anesthesia/Blood Transfusion Reactions: No Reported Reaction Past Psychological History: Anxiety Smoking Status: Former smoker - Past Family History Father History Unknown: Yes Mother Family Medical History: CVA/TIA, Dementia Additional Family Medical History / Comment(s): at age 94 or 95 Medications and Allergies Home Medications Medication Instructions Recorded Confirmed Type Atorvastatin [Lipitor] 10 mg PO HS@2100 07/09/18 08/16/24 History Tamsulosin [Flomax] 0.4 mg PO HS@2100 07/09/18 08/16/24 History amLODIPine [Norvasc] 5 mg PO DAILY@0800 07/09/18 08/16/24 History Cholecalciferol (Vitamin D3) 125 mcg PO DAILY@1700 10/03/20 08/16/24 History [Vitamin D3 (5000 Iu)] Ketoconazole 2% Shampoo [Nizoral] 1 applic TOPICAL MO 05/11/21 08/16/24 History Albuterol Inhaler [Ventolin Hfa 2 puff INHALATION RT-Q4H PRN 12/04/21 08/16/24 History Inhaler] Ammonium Lactate Cream [Lac-Hydrin 1 applic TOPICAL DAILY PRN 12/04/21 08/16/24 History 12% Cream] Niacinamide 500 mg PO BID@0800,169912/04/21 08/16/24 History Omeprazole 40 mg PO DAILY@169912/04/21 08/16/24 History EPINEPHrine (Auto Inject) [Epipen] 0.3 mg IM ONCE PRN 06/21/23 08/16/24 History Multivitamins, Thera [Multivitamin 1 tab PO DAILY@169906/21/23 08/16/24 History (formulary)] Na Phos,M-B/Na Phos,Di-Ba [Fleet 133 ml RECTAL DAILY PRN 06/21/23 08/16/24 History Adult] bisacodyL [Dulcolax] 10 mg RECTAL DAILY PRN 06/21/23 08/16/24 History guaiFENesin [guaiFENesin Oral 200 mg PO Q4H PRN 06/21/23 08/16/24 History Solution] Atropine Sulfate/Pf [Atropine 1% 2 drop SL BID@0800,169901/29/24 08/16/24 History Eye Drops] Acetaminophen Oral Susp [Tylenol] 650 mg PO Q4H PRN 08/16/24 08/16/24 History Acetaminophen Suppository [Tylenol 650 mg RECTAL Q4H PRN 08/16/24 08/16/24 History Suppository] Acetaminophen Tab [Tylenol] 650 mg PO Q4H PRN 08/16/24 08/16/24 History Chlorhexidine Gluconate [Peridex] 15 ml PO BID@0800,169908/16/24 08/16/24 History Ensure Enlive 474 ml PO 0800,1200,0 08/16/24 08/16/24 History HYDROcodone/APAP 7.5-325MG [Crosby 1 tab PO Q6H PRN 08/16/24 08/16/24 History 7.5-325] Ipratropium-Albuterol Nebulize 3 ml INHALATION RT-Q6H PRN 08/16/24 08/16/24 History [Duoneb 0.5 mg-3 mg/3 ml Soln] Magic Cup 1 dose PO BID@1200,169908/16/24 08/16/24 History Magnesium Hydroxide [Milk of 7,200 mg PO Q2D PRN MDD 2 days no 08/16/24 08/16/24 History Magnesia Concentrate] BM Melatonin 3 mg PO HS@2100 08/16/24 08/16/24 History Menthol [Biofreeze] 1 applic TOPICAL HS PRN 08/16/24 08/16/24 History Orajel 2x Toothace & Gum 1 applic DENTAL TID PRN 08/16/24 08/16/24 History Mouth/Throat Gel 20-0.26% Huizar Milk Of Magnesia 325mg 325 mg PO DAILY PRN 08/16/24 08/16/24 History Chewable Tab SILVER sulfADIAZINE Cream 1 applic TOPICAL BID 08/16/24 08/16/24 History [Silvadene 1% Cream] polyethylene glycoL 3350 [Miralax] 17 gm PO Q2D@0800 08/16/24 08/16/24 History traMADol HCL 50 mg PO Q6H PRN 08/16/24 08/16/24 History Allergies Allergy/AdvReac Type Severity Reaction Status Date / Time bee venom protein (honey bee) Allergy Unknown Verified 08/16/24 09:39 Penicillins Allergy Unknown Verified 08/16/24 09:39 Childhood Physical Exam Vitals: Vital Signs Temp Pulse Resp BP Pulse Ox 08/16/24 13:00 106 H 18 168/128 96 08/16/24 07:59 98.5 F 84 20 135/70 90 L 08/16/24 04:44 97.7 F 76 18 116/55 93 L 08/16/24 01:52 85 15 95 08/15/24 23:17 98.1 F 96 18 131/58 97 08/15/24 20:53 100.4 F H 95 17 131/61 92 L Results CBC & Chem 7: 08/15/24 21:27 08/15/24 21:27 Labs: Abnormal Lab Results - Last 24 Hours (Table) 08/15/24 08/15/24 08/15/24 Range/Units 21:27 21:27 21:27 WBC 22.2 H (3.8-10.6) k/uL RBC 3.89 L (4.30-5.90) m/uL Hgb 11.9 L (13.0-17.5) gm/dL Hct 36.8 L (39.0-53.0) % Neutrophils # 20.1 H (1.3-7.7) k/uL BUN 38 H (9-20) mg/dL Glucose 166 H (74-99) mg/dL Troponin I 0.046 H* (0.000-0.034) ng/mL Urine Protein (Negative) 08/15/24 Range/Units 23:16 WBC (3.8-10.6) k/uL RBC (4.30-5.90) m/uL Hgb (13.0-17.5) gm/dL Hct (39.0-53.0) % Neutrophils # (1.3-7.7) k/uL BUN (9-20) mg/dL Glucose (74-99) mg/dL Troponin I (0.000-0.034) ng/mL Urine Protein Trace H (Negative)
[2024-08-16] MEDS: CHLORHEXIDINE GLUCONATE 15 ML CUP MUCOUS MEM SCH (19:34)
[2024-08-16] MEDS: LACTATED RINGERS 1,000 ML IV SCH (19:35)
[2024-08-16] MEDS ORDERED: VANCOMYCIN 1,250 MG in SODIUM CHLORIDE 0.9% 250 ML IVPB SCH (21:00)
[2024-08-16] MEDS: MELATONIN 3 MG TABLET PO SCH (23:39)
[2024-08-16] MEDS: TAMSULOSIN 0.4 MG CAP.ER.24H PO SCH (23:39)
[2024-08-16] MEDS: ATORVASTATIN 10 MG TAB PO SCH (23:39)
[2024-08-17 10:03] LABS: HCT 40.5 % (39.0-53.0); HGB 12.6 gm/dL (13.0-17.5); Hypochromasia Moderate; MCH 30.3 pg (25.0-35.0); MCHC 31.1 g/dL (31.0-37.0); MCV 97.2 fL (80.0-100.0); Mean Platelet Volume 7.5; Platelet Count 278 k/uL (150-450); RBC 4.17 m/uL (4.30-5.90); RDW 14.6 % (11.5-15.5); WBC 14.8 k/uL (3.8-10.6)
[2024-08-17 10:51] LABS: African American GFR (CKD) >90 (>60 ml/min/1.73 sqM); Anion Gap 8 mmol/L; Blood Urea Nitrogen 20 mg/dL (9-20); Calcium 9.5 mg/dL (8.4-10.2); Carbon Dioxide 30 mmol/L (22-30); Chloride 106 mmol/L (98-107); Glucose 101 mg/dL (74-99); Non-African American GFR(CKD) 82 (>60 ml/min/1.73 sqM); Potassium 3.4 mmol/L (3.5-5.1); Sodium 144 mmol/L (137-145)
[2024-08-17] MEDS: POTASSIUM CHLORIDE ER 20 MEQ TAB.ER PO STA (17:11)
--- NOTE | 2024-08-17 17:32 | P.PN ---
Progress Note - Text Progress Note Date: 08/17/24 Chief Complaint: Fever 88-year-old male with a past medical history of hypertension, hyperlipidemia, history of CVA with right-sided paralysis and speech problems - wheelchair and dementia, anxiety and prior history of smoking and also right carotid endarterectomy resident of [facility]. Patient himself not able to give much of history. Keeps repeating things. As per the EMS run sheet staff informed patient had a recent procedure done to his mouth. Has been refusing all medications since then. Noticed to have a fever. Family decided to send him therefore to the ER. August 17: Admitted with right basal pneumonia. On IV ceftriaxone. More awake today. Answering some simple questions. Did not eat breakfast but had about 50% of lunch. Spoke with the at the bedside. Active Medications Acetaminophen (Acetaminophen Tab 325 Mg Tab) 650 mg PO Q4H PRN PRN Reason: Fever and/ or Pain Hydrocodone Bitart/Acetaminophen (Hydrocodone/Apap 7.5-325mg 1 Each Tab) 1 each PO Q6H PRN PRN Reason: Severe Pain (Scale 7 to 10) Albuterol/Ipratropium (Ipratropium-Albuterol 3 Ml Neb) 3 ml INHALATION RT-Q6H PRN PRN Reason: COPD Amlodipine Besylate (Amlodipine 5 Mg Tab) 5 mg PO DAILY@0800 [facility] Last Admin: 08/17/24 08:18 Dose: 5 mg Atorvastatin Calcium (Atorvastatin 10 Mg Tab) 10 mg PO HS@2100 [facility] Last Admin: 08/16/24 23:39 Dose: Not Given Atropine Sulfate (Atropine Ophth Soln 1% 5ml Btl) 2 drops SUBLINGUAL BID@0800,1700 [facility] Last Admin: 08/17/24 17:12 Dose: 2 drops Bisacodyl (Bisacodyl 10 Mg Supp) 10 mg RECTAL DAILY PRN PRN Reason: Constipation Calcium Carbonate/Glycine (Calcium Carbonate 500 Mg Chewable) 1,000 mg PO Q4HR PRN PRN Reason: Dyspepsia Chlorhexidine Gluconate (Chlorhexidine Gluconate 15 Ml Cup) 15 ml MUCOUS MEM BID@0800,1700 [facility] Last Admin: 08/17/24 17:13 Dose: 15 ml Cholecalciferol (Cholecalciferol 125 Mcg (5000 Iu) Tablet) 125 mcg PO DAILY@1700 [facility] Last Admin: 08/17/24 17:11 Dose: 125 mcg Enoxaparin Sodium (Enoxaparin 40 Mg/0.4 Ml Syringe) 40 mg SQ DAILY [facility] Last Admin: 08/17/24 08:18 Dose: 40 mg Guaifenesin (Guaifenesin Syrup 100mg/5ml 200 Mg/10 Ml Cup) 200 mg PO Q4H PRN PRN Reason: Cough Ceftriaxone Sodium 2 gm/ (Sodium Chloride) 50 mls @ 100 mls/hr IVPB Q24HR [facility]; Protocol Last Admin: 08/17/24 08:18 Dose: 100 mls/hr Lactated Ringer's (Lactated Ringers) 1,000 mls @ 75 mls/hr IV .[id number] [facility] Last Admin: 08/17/24 11:56 Dose: 75 mls/hr Lorazepam (Lorazepam 2 Mg/Ml Inj) 0.5 mg IV Q6HR PRN PRN Reason: Anxiety Magnesium Hydroxide (Magnesium Hydroxide 2,400 Mg/30 Ml Cup) 7,200 mg PO Q2D PRN PRN Reason: Constipation Melatonin (Melatonin 3 Mg Tablet) 3 mg PO HS@2100 [facility] Last Admin: 08/16/24 23:39 Dose: Not Given Multivitamins (Multivitamins, Thera 1 Each Tab) 1 each PO DAILY@1700 [facility] Last Admin: 08/17/24 17:11 Dose: 1 each Naloxone HCl (Naloxone 0.4 Mg/Ml 1 Ml Vial) 0.2 mg IV Q2M PRN PRN Reason: Opioid Reversal Niacin (Niacin Tr 500 Mg Caplet) 500 mg PO BID@0800,1700 [facility] Last Admin: 08/17/24 17:12 Dose: 500 mg Ondansetron HCl (Ondansetron 4 Mg/2 Ml Vial) 4 mg IVP Q8HR PRN PRN Reason: Nausea And Vomiting Pantoprazole Sodium (Pantoprazole 40 Mg Tablet) 40 mg PO DAILY@1700 [facility] Last Admin: 08/17/24 17:11 Dose: 40 mg Polyethylene Glycol (Polyethylene Glycol 3350 17 Gm Powd.Pack) 17 gm PO Q2D@0800 [facility] Silver Sulfadiazine (Silver Sulfadiazine 1% Cream 25 Gm Tube) 1 applic TOPICAL BID [facility] Last Admin: 08/17/24 08:20 Dose: 1 applic Sodium Biphosphate/Sodium Phosphate (Na Phos,M-B/Na Phos,Di-Ba 133 Ml Enema) 133 ml RECTAL DAILY PRN PRN Reason: Constipation Tamsulosin HCl (Tamsulosin 0.4 Mg Cap.Er.24h) 0.4 mg PO HS@2100 [facility] Last Admin: 08/16/24 23:39 Dose: Not Given Tramadol HCl (Tramadol 50 Mg Tab) 50 mg PO Q6H PRN PRN Reason: Moderate Pain (Scale 4 to 6) Past medical history to include: Hypertension, hyperlipidemia, BPH, moderate cognitive impairment from prior stroke, GERD, right-sided weakness from prior stroke, dysarthria, chronic medical debility using a wheelchair, Harris's esophagus Social history: . smoked for about 35 years, cigars. Stop smoking about 24 years ago. Uses a wheelchair -at [facility] PHYSICAL EXAMINATION: VITAL SIGNS: 97.9, 87, 16, 146 per 79, 97% on 2 L GENERAL: Reclining in bed, more awake appears more comfortable EYES: Pupils equal. Conjunctiva normal. HEENT: External appearance of nose and ears normal, oral cavity-dry mucous NECK: JVD not raised; masses not palpable. HEART: First and second heart sounds are normal; no edema. LUNGS: Respiratory rate normal, decreased breath sound. ABDOMEN: Soft, nontender, liver spleen not palpable, no masses palpable. PSYCH: Answering simple questions MUSCULOSKELETAL:No Clubbing/cyanosis;muscles-grossly intact. Evidence of OA. Loss of muscle mass and subcutaneous fat. Prominent bones NEUROLOGICAL: . dysarthria. Right arm weakness with hand contracture. Mild right leg weakness. INVESTIGATIONS, reviewed in the clinical context: August 17: White count 14.8 hemoglobin 12.6 potassium 3.4 creatinine 0.78 procalcitonin 0.38 August 15, 2024: White count 22.2 hemoglobin 11.9 platelets 297 sodium 141 potassium 4.9 BUN 38 creatinine 1.04 Troponin I 0.046 UA: Trace protein Influenza type A, type B, RSV, COVID-19: Not detected EKG tracing personally reviewed by me-normal sinus rhythm. Nonspecific ST changes. Chest x-ray film personally reviewed by me-probable right base infiltrate Assessment and plan: -Right basal pneumonia suspect gram-negative organism: Improving IV ceftriaxone 2 g daily -Patient had a tooth procedure done since then not be eating Changed to ground diet. Supervised -Acute metabolic encephalopathy with infection/pneumonia on presentation: Improving - severe cognitive impairment from advanced dementia - Harris's esophagus PPI Essential Hypertension -Amlodipine -Hyperlipidemia Lipitor -Clinically protein calorie malnutrition loss of muscle mass subcutaneous fat. Recheck albumin after hydration. Compact Ensure 1 can 3 times daily GERD -PPI BPH -Flomax -Right-sided paresis with right arm contracture with right arm weakness more than the Márquez from prior stroke and chronic dysarthria -Positive troponin. Probably from hemodynamic mismatch in the setting of infection. Improving. Discussed with the at the bedside. Continue current treatment plan. Continue gentle hydration. 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
[2024-08-18 07:28] LABS: Basophils # (A) 0.1 k/uL (0-0.2); Basophils % (A) 1 %; Eosinophils # (A) 0.2 k/uL (0-0.7); Eosinophils % (A) 2 %; HCT 41.1 % (39.0-53.0); HGB 12.6 gm/dL (13.0-17.5); Hypochromasia Moderate; Lymphocytes # (A) 0.9 k/uL (1.0-4.8); Lymphocytes % (A) 8 %; MCHC 30.7 g/dL (31.0-37.0); MCV 97.8 fL (80.0-100.0); Mean Platelet Volume 7.5; Monocytes # (A) 0.7 k/uL (0-1.0); Monocytes % (A) 6 %; Neutrophils # (A) 9.3 k/uL (1.3-7.7); Neutrophils % (A) 82 %; Platelet Count 272 k/uL (150-450); RDW 14.5 % (11.5-15.5); WBC 11.4 k/uL (3.8-10.6)
[2024-08-18 08:19] LABS: African American GFR (CKD) >90 (>60 ml/min/1.73 sqM); Anion Gap 11 mmol/L; Blood Urea Nitrogen 25 mg/dL (9-20); Calcium 9.7 mg/dL (8.4-10.2); Carbon Dioxide 25 mmol/L (22-30); Chloride 109 mmol/L (98-107); Glucose 100 mg/dL (74-99); Non-African American GFR(CKD) 82 (>60 ml/min/1.73 sqM); Potassium 3.5 mmol/L (3.5-5.1); Sodium 145 mmol/L (137-145)
[2024-08-18] MEDS: polyethylene glycoL 3350 17 GM POWD.PACK PO SCH (08:42)
--- NOTE | 2024-08-18 15:34 | P.PN ---
Progress Note - Text Progress Note Date: 08/18/24 Chief Complaint: Fever 88-year-old male with a past medical history of hypertension, hyperlipidemia, history of CVA with right-sided paralysis and speech problems - wheelchair and dementia, anxiety and prior history of smoking and also right carotid endarterectomy resident of [facility]. Patient himself not able to give much of history. Keeps repeating things. As per the EMS run sheet staff informed patient had a recent procedure done to his mouth. Has been refusing all medications since then. Noticed to have a fever. Family decided to send him therefore to the ER. August 17: Admitted with right basal pneumonia. On IV ceftriaxone. More awake today. Answering some simple questions. Did not eat breakfast but had about 50% of lunch. Spoke with the at the bedside. August 18: Admitted with pneumonia. IV ceftriaxone. at the bedside. Fe eding lunch. Patient more awake and a bit more talkative today. Though per the still weak and not back to his baseline. 95% on 2 L. Slightly tachycardic. Afebrile. Discussed with the . Even though patient was full code as of 10 years ago now she wants the patient to be a DO NOT RESUSCITATE. In fact she supposed to meet up with the delinquency prevention social worker from [facility] to change that. Will change patient's CODE STATUS. Active Medications Acetaminophen (Acetaminophen Tab 325 Mg Tab) 650 mg PO Q4H PRN PRN Reason: Fever and/ or Mild Pain Hydrocodone Bitart/Acetaminophen (Hydrocodone/Apap 7.5-325mg 1 Each Tab) 1 each PO Q6H PRN PRN Reason: Severe Pain (Scale 7 to 10) Albuterol/Ipratropium (Ipratropium-Albuterol 3 Ml Neb) 3 ml INHALATION RT-Q6H PRN PRN Reason: COPD Amlodipine Besylate (Amlodipine 5 Mg Tab) 5 mg PO DAILY@0800 [facility] Last Admin: 08/18/24 08:43 Dose: 5 mg Atorvastatin Calcium (Atorvastatin 10 Mg Tab) 10 mg PO HS@2100 [facility] Last Admin: 08/17/24 22:24 Dose: 10 mg Atropine Sulfate (Atropine Ophth Soln 1% 5ml Btl) 2 drops SUBLINGUAL BID@0800,1700 [facility] Last Admin: 08/18/24 14:44 Dose: Not Given Bisacodyl (Bisacodyl 10 Mg Supp) 10 mg RECTAL DAILY PRN PRN Reason: Constipation Calcium Carbonate/Glycine (Calcium Carbonate 500 Mg Chewable) 1,000 mg PO Q4HR PRN PRN Reason: Dyspepsia Chlorhexidine Gluconate (Chlorhexidine Gluconate 15 Ml Cup) 15 ml MUCOUS MEM BID@0800,1700 [facility] Last Admin: 08/18/24 14:27 Dose: Not Given Cholecalciferol (Cholecalciferol 125 Mcg (5000 Iu) Tablet) 125 mcg PO DAILY@1700 [facility] Last Admin: 08/18/24 14:30 Dose: 125 mcg Enoxaparin Sodium (Enoxaparin 40 Mg/0.4 Ml Syringe) 40 mg SQ DAILY [facility] Last Admin: 08/18/24 08:42 Dose: 40 mg Guaifenesin (Guaifenesin Syrup 100mg/5ml 200 Mg/10 Ml Cup) 200 mg PO Q4H PRN PRN Reason: Cough Ceftriaxone Sodium 2 gm/ (Sodium Chloride) 50 mls @ 100 mls/hr IVPB Q24HR [facility]; Protocol Last Admin: 08/18/24 08:42 Dose: 100 mls/hr Lactated Ringer's (Lactated Ringers) 1,000 mls @ 50 mls/hr IV .Q20H [facility] Last Admin: 08/18/24 14:27 Dose: Not Given Lorazepam (Lorazepam 2 Mg/Ml Inj) 0.5 mg IV Q6HR PRN PRN Reason: Anxiety Magnesium Hydroxide (Magnesium Hydroxide 2,400 Mg/30 Ml Cup) 7,200 mg PO Q2D PRN PRN Reason: Constipation Melatonin (Melatonin 3 Mg Tablet) 3 mg PO HS@2100 [facility] Last Admin: 08/17/24 22:24 Dose: 3 mg Multivitamins (Multivitamins, Thera 1 Each Tab) 1 each PO DAILY@1700 [facility] Last Admin: 08/18/24 14:30 Dose: 1 each Naloxone HCl (Naloxone 0.4 Mg/Ml 1 Ml Vial) 0.2 mg IV Q2M PRN PRN Reason: Opioid Reversal Niacin (Niacin Tr 500 Mg Caplet) 500 mg PO BID@0800,1700 [facility] Last Admin: 08/18/24 14:33 Dose: 500 mg Ondansetron HCl (Ondansetron 4 Mg/2 Ml Vial) 4 mg IVP Q8HR PRN PRN Reason: Nausea And Vomiting Pantoprazole Sodium (Pantoprazole 40 Mg Tablet) 40 mg PO DAILY@1700 [facility] Last Admin: 08/17/24 17:11 Dose: 40 mg Polyethylene Glycol (Polyethylene Glycol 3350 17 Gm Powd.Pack) 17 gm PO Q2D@0800 [facility] Last Admin: 08/18/24 08:42 Dose: 17 gm Silver Sulfadiazine (Silver Sulfadiazine 1% Cream 25 Gm Tube) 1 applic TOPICAL BID [facility] Last Admin: 08/18/24 08:43 Dose: Not Given Sodium Biphosphate/Sodium Phosphate (Na Phos,M-B/Na Phos,Di-Ba 133 Ml Enema) 133 ml RECTAL DAILY PRN PRN Reason: Constipation Tamsulosin HCl (Tamsulosin 0.4 Mg Cap.Er.24h) 0.4 mg PO HS@2100 [facility] Last Admin: 08/17/24 22:24 Dose: 0.4 mg Tramadol HCl (Tramadol 50 Mg Tab) 50 mg PO Q6H PRN PRN Reason: Moderate Pain (Scale 4 to 6) Past medical history to include: Hypertension, hyperlipidemia, BPH, moderate cognitive impairment from prior stroke, GERD, right-sided weakness from prior stroke, dysarthria, chronic medical debility using a wheelchair, Harris's esophagus Social history: . smoked for about 35 years, cigars. Stop smoking about 24 years ago. Uses a wheelchair -at [facility] PHYSICAL EXAMINATION: VITAL SIGNS: 97.5, 0182, 18, 151 x 66, 95% 2 L GENERAL: Reclining in bed, more awake today, talking a bit more EYES: Pupils equal. Conjunctiva normal. HEENT: External appearance of nose and ears normal, oral cavity-dry mucous NECK: JVD not raised; masses not palpable. HEART: First and second heart sounds are normal; no edema. LUNGS: Respiratory rate normal, decreased breath sound. ABDOMEN: Soft, nontender, liver spleen not palpable, no masses palpable. PSYCH: Talking a bit more today. Answering simple questions. s MUSCULOSKELETAL:No Clubbing/cyanosis;muscles-grossly intact. Evidence of OA. Loss of muscle mass and subcutaneous fat. Prominent bones NEUROLOGICAL: . dysarthria. Right arm weakness with hand contracture. Mild right leg weakness. INVESTIGATIONS, reviewed in the clinical context: Every 17: White: 0.4 hemoglobin 12.6 potassium 3.5 creatinine 0.79 August 17: White count 14.8 hemoglobin 12.6 potassium 3.4 creatinine 0.78 procalcitonin 0.38 August 15, 2024: White count 22.2 hemoglobin 11.9 platelets 297 sodium 141 potassium 4.9 BUN 38 creatinine 1.04 Troponin I 0.046 UA: Trace protein Influenza type A, type B, RSV, COVID-19: Not detected EKG tracing personally reviewed by me-normal sinus rhythm. Nonspecific ST changes. Chest x-ray film personally reviewed by me-probable right base infiltrate Assessment and plan: -Right basal pneumonia suspect gram-negative organism: Improving IV ceftriaxone 2 g daily -Patient had a tooth procedure done since then not be eating: Eating better Changed to ground diet. Supervised -Acute metabolic encephalopathy with infection/pneumonia on presentation: Improving - severe cognitive impairment from advanced dementia - Harris's esophagus PPI Essential Hypertension -Amlodipine -Hyperlipidemia Lipitor -Clinically protein calorie malnutrition loss of muscle mass subcutaneous fat. Recheck albumin after hydration. Compact Ensure 1 can 3 times daily GERD -PPI BPH -Flomax -Right-sided paresis with right arm contracture with right arm weakness more than the Márquez from prior stroke and chronic dysarthria -Positive troponin. Probably from hemodynamic mismatch in the setting of infection. 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
[2024-08-19] MEDS: ONDANSETRON 4 MG/2 ML VIAL IVP PRN (04:59)
--- NOTE | 2024-08-19 05:02 | XR ---
EXAM: XR Chest, 1 View CLINICAL HISTORY: ITS.REASON XR Reason: possible aspiration/ hypoxia TECHNIQUE: Frontal view of the chest. COMPARISON: X-ray dated 08/15/2024. FINDINGS: Lungs: Confluent airspace opacities is seen within the bilateral lower lobes. Pleural space: Unremarkable. No pneumothorax. Heart: Unremarkable. No cardiomegaly. Mediastinum: Unremarkable. Normal mediastinal contour. Bones/joints: Degenerative changes are seen in the spine and shoulders. No acute fracture. Vasculature: Calcifications overlie the aorta. IMPRESSION: Bilateral lower lobe pneumonia.
--- NOTE | 2024-08-19 06:54 | XR ---
EXAM: XR Abdomen, 2 Views CLINICAL HISTORY: ITS.REASON XR Reason: abdominal pain TECHNIQUE: Frontal view of the abdomen/pelvis with upright view of the abdomen. COMPARISON: X-ray dated 12/23/2020. FINDINGS: Lower thorax: Right lower lobe pneumonia. Intraperitoneal space: No free air. Gastrointestinal tract: Air-filled dilated loops of large and small bowel overlie the abdomen and pelvis. Bones/joints: Degenerative changes are seen in the spine and shoulders. No acute fracture. IMPRESSION: Findings concerning for a small bowel obstruction. Consider CT scan for further evaluation.
[2024-08-19 07:14] LABS: Basophils # (A) 0.1 k/uL (0-0.2); Basophils % (A) 0 %; Eosinophils # (A) 0.1 k/uL (0-0.7); Eosinophils % (A) 0 %; HCT 42.3 % (39.0-53.0); Hypochromasia Moderate; Lymphocytes # (A) 0.6 k/uL (1.0-4.8); Lymphocytes % (A) 3 %; MCHC 30.6 g/dL (31.0-37.0); Mean Platelet Volume 7.8; Monocytes # (A) 0.6 k/uL (0-1.0); Monocytes % (A) 4 %; Neutrophils % (A) 92 %; Platelet Count 242 k/uL (150-450); RBC 4.32 m/uL (4.30-5.90); RDW 14.3 % (11.5-15.5); WBC 18.4 k/uL (3.8-10.6)
[2024-08-19 07:53] LABS: ALT 25 U/L (4-49); AST 36 U/L (17-59); African American GFR (CKD) >90 (>60 ml/min/1.73 sqM); Albumin 3.2 g/dL (3.5-5.0); Alkaline Phosphatase 89 U/L (38-126); Anion Gap 13 mmol/L; Blood Urea Nitrogen 35 mg/dL (9-20); Calcium 9.8 mg/dL (8.4-10.2); Carbon Dioxide 24 mmol/L (22-30); Chloride 107 mmol/L (98-107); Glucose 121 mg/dL (74-99); Non-African American GFR(CKD) 83 (>60 ml/min/1.73 sqM); Potassium 3.5 mmol/L (3.5-5.1); Sodium 144 mmol/L (137-145); Total Bilirubin 0.7 mg/dL (0.2-1.3); Total Protein 6.6 g/dL (6.3-8.2)
--- NOTE | 2024-08-19 10:12 | P.CNPUL ---
History of Present Illness Consult date: 08/19/24 Requesting physician: Sidney Fortune Reason for consult: other (Possible aspiration) Chief complaint: Sent in from ECF for fevers History of present illness: Patient is an 88-year-old male apparently sent in from his ECF back on 08/15/2024 for fevers and possible pneumonia. Patient has past medical history significant for CVA/TIA with right-sided paralysis, right-sided contractures, carotid artery stenosis, hyperlipidemia, hypertension, among other things. Pulmonary consult was placed last night early this morning for potential aspiration. Patient himself is unable to provide any reliable information. Apparently, earlier this morning patient had an episode of vomiting, possibly fecal content per the nurse. Subsequently, developed some respiratory distress, placed on a 15 L nonrebreather. Follow-up chest x-ray showing bibasilar infiltrates. Abdominal x-ray showing air-filled dilated loops of the large and small bowel. CBC: WBC count 18.4, hemoglobin 13, hematocrit 42.3, platelets 242. CMP unremarkable, electrolytes WDL, creatinine 0.75, glucose 121. LFTs not elevated. Viral screen on admission negative for influenza, RSV, COVID. Urinalysis unremarkable for infection. Patient currently being evaluated on the cardiac stepdown unit. He is lethargic, tachypneic, has a congested and weak cough, trouble clearing secretions. On a 15 L nonrebreather, SpO2 reading 98%. Abdomen is firm and tender to palpation. 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 Patient has a DO NOT RESUSCITATE/DO NOT INTUBATE status. 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 Smoking Status: Former smoker Past Alcohol Use History: Occasional Additional Past Alcohol Use History / Comment(s): quit smoking about 25 yrs ago, smoked for about 35 yrs- cigars Past Drug Use History: None Reported - Past Family History Father History Unknown: Yes Mother Family Medical History: CVA/TIA, Dementia Additional Family Medical History / Comment(s): at age 94 Medications and Allergies Home Medications Medication Instructions Recorded Confirmed Type Atorvastatin [Lipitor] 10 mg PO HS@2100 07/09/18 08/16/24 History Tamsulosin [Flomax] 0.4 mg PO HS@2100 07/09/18 08/16/24 History amLODIPine [Norvasc] 5 mg PO DAILY@0800 07/09/18 08/16/24 History Cholecalciferol (Vitamin D3) 125 mcg PO DAILY@1700 10/03/20 08/16/24 History [Vitamin D3 (5000 Iu)] Ketoconazole 2% Shampoo [Nizoral] 1 applic TOPICAL MO 05/11/21 08/16/24 History Albuterol Inhaler [Ventolin Hfa 2 puff INHALATION RT-Q4H PRN 12/04/21 08/16/24 History Inhaler] Ammonium Lactate Cream [Lac-Hydrin 1 applic TOPICAL DAILY PRN 12/04/21 08/16/24 History 12% Cream] Niacinamide 500 mg PO BID@0800,1700 12/04/21 08/16/24 History Omeprazole 40 mg PO DAILY@1700 12/04/21 08/16/24 History EPINEPHrine (Auto Inject) [Epipen] 0.3 mg IM ONCE PRN 06/21/23 08/16/24 History Multivitamins, Thera [Multivitamin 1 tab PO DAILY@1700 06/21/23 08/16/24 History (formulary)] Na Phos,M-B/Na Phos,Di-Ba [Fleet 133 ml RECTAL DAILY PRN 06/21/23 08/16/24 History Adult] bisacodyL [Dulcolax] 10 mg RECTAL DAILY PRN 06/21/23 08/16/24 History guaiFENesin [guaiFENesin Oral 200 mg PO Q4H PRN 06/21/23 08/16/24 History Solution] Atropine Sulfate/Pf [Atropine 1% 2 drop SL BID@0800,1700 01/29/24 08/16/24 History Eye Drops] Acetaminophen Oral Susp [Tylenol] 650 mg PO Q4H PRN 08/16/24 08/16/24 History Acetaminophen Suppository [Tylenol 650 mg RECTAL Q4H PRN 08/16/24 08/16/24 History Suppository] Acetaminophen Tab [Tylenol] 650 mg PO Q4H PRN 08/16/24 08/16/24 History Chlorhexidine Gluconate [Peridex] 15 ml PO BID@0800,1700 08/16/24 08/16/24 History Ensure Enlive 474 ml PO 0800,1200,1700 08/16/24 08/16/24 History HYDROcodone/APAP 7.5-325MG [[place] 1 tab PO Q6H PRN 08/16/24 08/16/24 History 7.5-325] Ipratropium-Albuterol Nebulize 3 ml INHALATION RT-Q6H PRN 08/16/24 08/16/24 History [Duoneb 0.5 mg-3 mg/3 ml Soln] Magic Cup 1 dose PO BID@1200,1700 08/16/24 08/16/24 History Magnesium Hydroxide [Milk of 7,200 mg PO Q2D PRN MDD 2 days no 08/16/24 08/16/24 History Magnesia Concentrate] BM Melatonin 3 mg PO HS@2100 08/16/24 08/16/24 History Menthol [Biofreeze] 1 applic TOPICAL HS PRN 08/16/24 08/16/24 History Orajel 2x Toothace & Gum 1 applic DENTAL TID PRN 08/16/24 08/16/24 History Mouth/Throat Gel 20-0.26% Huizar Milk Of Magnesia 325mg 325 mg PO DAILY PRN 08/16/24 08/16/24 History Chewable Tab SILVER sulfADIAZINE Cream 1 applic TOPICAL BID 08/16/24 08/16/24 History [Silvadene 1% Cream] polyethylene glycoL 3350 [Miralax] 17 gm PO Q2D@0800 08/16/24 08/16/24 History traMADol HCL 50 mg PO Q6H PRN 08/16/24 08/16/24 History Allergies Allergy/AdvReac Type Severity Reaction Status Date / Time bee venom protein (honey bee) Allergy Unknown Verified 08/16/24 09:39 Penicillins Allergy Unknown Verified 08/16/24 09:39 Childhood Physical Exam Vitals: Vital Signs Temp Pulse Pulse Resp BP Pulse Ox 08/19/24 08:21 92 L 08/19/24 07:42 98.1 F 74 18 144/78 98 08/19/24 05:40 98 08/19/24 04:00 124 H 16 141/67 88 L 08/19/24 01:18 69 111 H 16 08/19/24 00:00 97.6 F 69 16 165/70 91 L 08/18/24 20:00 98.2 F 99 111 H 16 158/69 92 L 08/18/24 16:00 97.7 F 107 H 16 149/70 96 08/18/24 12:49 102 H 111 H 18 Intake and Output 08/18/24 08/19/24 08/19/24 22:59 06:59 14:59 Intake Total 20 Output Total 500 Balance -480 Intake: IV 20 Invasive Line 5 20 Output: Urine 500 Other: Voiding Method Diaper Diaper Incontinent Incontinent External Catheter External Catheter # Voids 1 # Bowel Movements 1 Weight 50 kg 50 kg GENERAL EXAM: Lethargic, 88-year-old male, right-sided neglect, on a 15 L nonrebreather HEAD: Normocephalic and atraumatic EYES: Normal reaction of pupils, equal size. NOSE: Clear with pink turbinates. THROAT: No erythema or exudates. NECK: No masses, no JVD. CHEST: No chest wall deformity. LUNGS: Equal air entry with diffuse rhonchi bilaterally and crackles heard at the bases. Tachypneic, with weak congested cough. CVS: S1 and S2 normal with no audible murmur, regular rhythm. No extra heart sounds ABDOMEN: Abdomen is firm and distended, a hypoactive bowel sounds, tender to palpation, no hepatosplenomegaly. SPINE: No scoliosis or deformity SKIN: No rashes CENTRAL NERVOUS SYSTEM: Lethargic, does not follow commands or accurately answer questioning, right-sided hemiplegia and contractures EXTREMITIES: There is no peripheral edema, clubbing, or cyanosis. Peripheral pulses are intact. Results - Laboratory Findings CBC and BMP: 08/19/24 06:08 08/19/24 12:52 Abnormal lab findings: Abnormal Labs 08/15/24 08/15/24 08/15/24 21:27 21:27 21:27 WBC 22.2 H RBC 3.89 L Hgb 11.9 L Hct 36.8 L MCHC Neutrophils # 20.1 H Lymphocytes # Potassium Chloride BUN 38 H Glucose 166 H Troponin I 0.046 H* Albumin Urine Protein 08/15/24 08/17/24 08/17/24 23:16 09:36 09:36 WBC 14.8 H RBC 4.17 L Hgb 12.6 L Hct MCHC Neutrophils # Lymphocytes # Potassium 3.4 L Chloride BUN Glucose 101 H Troponin I Albumin Urine Protein Trace H 08/18/24 08/18/24 08/19/24 06:32 06:32 06:08 WBC 11.4 H 18.4 H RBC 4.20 L Hgb 12.6 L Hct MCHC 30.7 L 30.6 L Neutrophils # 9.3 H 17.0 H Lymphocytes # 0.9 L 0.6 L Potassium Chloride 109 H BUN 25 H Glucose 100 H Troponin I Albumin Urine Protein 08/19/24 06:08 WBC RBC Hgb Hct MCHC Neutrophils # Lymphocytes # Potassium Chloride BUN 35 H Glucose 121 H Troponin I Albumin 3.2 L Urine Protein - Diagnostic Findings Chest x-ray: image reviewed Assessment and Plan Assessment: Suspect aspiration/aspiration pneumonitis, chest x-ray showing new/worsening bibasilar infiltrates Acute hypoxemic respiratory failure, currently on a 15 L nonrebreather at the moment, secondary to above Abdominal pain, abdominal x-ray showing air-filled dilated loops of the large and small bowel, concerning for possible small bowel obstruction Acute leukocytosis History of CVA with residual right-sided deficits Hypertension History of hyperlipidemia ECF resident Plan: Patient currently on 15 L nonrebreather Patient had a witnessed aspiration event, possible fecal like content per staff nurse Cover patient empiric antibiotics for probable aspiration pneumonia Follow-up CT of the abdomen/pelvis Insert NG tube for gastric decompression, if patient continues to have episodic emesis Consult general surgery Overall condition is guarded, secondary to above mentioned comorbidities Patient carries a DO NOT RESUSCITATE/DO NOT INTUBATE status We will continue to follow I have personally seen and examined the patient, performed the documentation and the assessment and plan as written. Number of minutes spent on the visit:20 This is a joint evaluation that was done along with the nurse practitioner. This evaluation was done and 32 minutes. In summary, the patient is being seen for worsening shortness of breath and hypoxic respiratory failure. At the time of my evaluation, the patient was in 100% nonrebreather facemask. He was weaned off and he was placed on 3 L with a pulse ox of 95%. Reviewed the CAT scan of the abdomen and pelvis that was done on this patient. The patient has large colonic stool burden with large rectal fecaloma with some mild surrounding inflammatory changes that is concerning for stercoral colitis. The patient also has a stable infrarenal abdominal aortic aneurysm measuring 3.1 cm in size. Some atelectatic changes in the lung bases right more than left. The white cell count of 18.4 with a heme of 13. Rest of the electrolytes are all within normal limits. The patient is currently on laxatives. The patient received enema without any success. The patient is on Dulcolax and milk of mag. The plan is to do a sigmoidoscopy tomorrow by general surgery. Shortness of breath is related to significant fecal impaction and rectal fecaloma and colonic distention and stool burden. General surgery is on the case. Aspiration precautions. Afebrile. Hemodynamically stable. Antibiotic coverage with IV Zosyn and this is essentially an empiric antibiotic coverage. Remains on Lovenox for DVT prophylaxis. Home medications have been resumed. Time with Patient: Greater than 30
--- NOTE | 2024-08-19 13:16 | CT ---
EXAMINATION TYPE: CT abdomen pelvis w con CT DLP: 735.9 mGycm, Automated exposure control for dose reduction was used. DATE OF EXAM: 08/19/2024 12:50 PM COMPARISON: CT abdomen pelvis 11/19/2020 CLINICAL INDICATION:Male, 88 years old with history of concerns for bowel obstruction; Abdominal pain and distention. TECHNIQUE: Standard CT of the abdomen and pelvis following the administration of 100 cc of Isovue 3 00 IV contrast material. Coronal and sagittal reformats were performed. FINDINGS: LOWER CHEST: Bilateral lower lobe consolidative opacities with air bronchograms with right greater th an left. Mild cardiomegaly. Aortic valvular calcifications. Mitral annulus calcifications. Coronary a rtery calcifications. Elevation of the right hemidiaphragm. ABDOMEN LIVER: Unremarkable GALLBLADDER AND BILE DUCTS: Unremarkable. PANCREAS: Unremarkable. SPLEEN: Unremarkable. ADRENAL GLANDS: Unremarkable. KIDNEYS AND URETERS: No evidence of hydronephrosis or renal calculus. Bilateral cortical renal cysts with a medial left renal cortical 1.7 cm hyperdense lesion which was previously cystic and most consi stent with a hemorrhagic/proteinaceous cyst. The kidneys enhance symmetrically. Contrast is demonstra jamie within both collecting systems on the delayed phase. PELVIS BLADDER: There is displacement of the urinary bladder to the anterior right due to large amount of st ool present within the rectum and sigmoid colon. REPRODUCTIVE: Coarse calcifications of the prostate gland are identified. ABDOMEN & PELVIS STOMACH AND BOWEL: Small hiatal hernia, duodenum is unremarkable. Large rectal fecal trauma with pres acral fat stranding. Fecal trauma measures up to 12.3 cm in AP dimension with mild wall fat stranding . Large amount of stool is present within the sigmoid colon with moderate amounts within the right co edouard. Gas is identified within the remaining transverse colon. No pneumatosis. No dilated small bowel. No focal bowel wall thickening. No evidence of bowel obstruction. PERITONEUM: No evidence of pneumoperitoneum or free fluid. VASCULATURE: Moderate to severe atherosclerotic calcifications are present throughout the abdominal a juanjo and its branches. Stable infrarenal fusiform abdominal aortic aneurysm measuring up to 3.1 cm. T here is mural thrombus identified within the aneurysm. High-grade stenosis again at the origin of the SMA. Moderate stenosis of the origin of the celiac axis. At least moderate stenosis of the origins o f the bilateral renal arteries. Moderate severe multifocal stenosis of the bilateral common iliac art eries extending into the bilateral external iliac arteries and bilateral common femoral arteries. Pel renato phleboliths. MUSCULOSKELETAL: No acute osseous abnormalities. Diffuse bone demineralization. MR central compressio n deformities involving the superior endplate of the L4 vertebral body, inferior endplate of the L2 v ertebral body and anterior wedge compression deformity of the T12 vertebral body. Grade 1 anterolisth esis of L5 on S1 redemonstrated without pars defects. Multilevel anterior osteophytosis. LYMPH NODES: No evidence for lymphadenopathy. SOFT TISSUE/ABDOMINAL WALL: Couple calcifications within the midline anterior abdominal wall subcutan eous tissues. Ventral wall epigastric hernia containing fat and mesenteric vessels with the defect me asuring up to 2.7 cm. IMPRESSION: 1. Moderate to large colonic stool burden with large rectal fecaloma some mild surrounding inflammat ory changes concerning for stercoral colitis. Correlate clinically. 2. Stable infrarenal abdominal aortic aneurysm measuring up to 3.1 cm. Extensive atherosclerotic dise ase of the aorta and its branches. 3. By lateral lower lobe consolidative opacities with right greater than left concerning for possible pneumonia. [facility], , 08/19/2024 1:13 PM
--- NOTE | 2024-08-19 14:21 | P.GSCN ---
History of Present Illness Consult date: 08/19/24 History of present illness: CHIEF COMPLAINT: Fever HISTORY OF PRESENT ILLNESS: This is a 88-year-old male who presented the hospital from [facility] due to a fever. He is being treated for pneumonia. Patient had episodes of vomiting. They are concerned that he may have aspirated. Abdominal x-ray completed that had reported findings concerning for small bowel obstruction consider CT scan. Surgical service consulted for possible small bowel obstruction. However, CT scan completed showing moderate large colonic stool burden with large rectal fecaloma some mild surrounding inflammatory changes concerning for stercoral colitis. Patient denies any abdominal pain. He is a poor historian. He is currently on a nonrebreather. Per nursing staff no bowel movement during his admission. However, during rectal exam patient did have soft stool in his brief. 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 REVIEW OF SYSTEMS: CONSTITUTIONAL: Denies fever or chills. HEENT: Denies blurred vision, vision changes, or eye pain. Denies hemoptysis CARDIOVASCULAR: Denies chest pain or pressure. RESPIRATORY: No shortness of breath. GASTROINTESTINAL: See HPI for pertinent findings HEMATOLOGIC: Denies bleeding disorders. GENITOURINARY: Denies any blood in urine or increased urinary frequency. SKIN: Denies pruitis. Denies rash. PHYSICAL EXAM: VITAL SIGNS: Reviewed GENERAL: Malnourished. No acute distress. ABDOMEN: Soft. Nondistended. Nontender Rectal exam: Patient had soft brown stool in brief. Stool ball noted in rectal vault at the tip of my finger. Unable to remove any stool. NEUROLOGIC: awake and alert. Orientated to name only LABORATORY DATA: WBC is up from 11.4-18.4 Hgb 13 platelets 242 Sodium 144 potassium 3.5 creatinine 0.75 IMAGING: CT scan abdomen pelvis reports moderate to large colonic stool burden with large rectal fecaloma some mild surrounding inflammatory changes concerning for stercoral colitis. Stable infrarenal abdominal aortic aneurysm measuring 3.1 cm. Bilateral lobe consult of opacities right greater than left concerning for possible pneumonia ASSESSMENT: 1. Large rectal fecaloma and colonic stool burden 2. Possible aspiration pneumonia PLAN: -Soap elana enemas until clear -Sigmoidoscopy on with Dr. Raza -Continue antibiotics for pneumonia Physician Interior Design Faculty Member note has been reviewed by physician. Signing provider agrees with the documented findings, assessment, and plan of care. 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 Smoking Status: Former smoker Past Alcohol Use History: Occasional Additional Past Alcohol Use History / Comment(s): quit smoking about 25 yrs ago, smoked for about 35 yrs- cigars Past Drug Use History: None Reported - Past Family History Father History Unknown: Yes Mother Family Medical History: CVA/TIA, Dementia Additional Family Medical History / Comment(s): at age 94 Medications and Allergies Home Medications Medication Instructions Recorded Confirmed Type Atorvastatin [Lipitor] 10 mg PO HS@2100 07/09/18 08/16/24 History Tamsulosin [Flomax] 0.4 mg PO HS@2100 07/09/18 08/16/24 History amLODIPine [Norvasc] 5 mg PO DAILY@0800 07/09/18 08/16/24 History Cholecalciferol (Vitamin D3) 125 mcg PO DAILY@1700 10/03/20 08/16/24 History [Vitamin D3 (5000 Iu)] Ketoconazole 2% Shampoo [Nizoral] 1 applic TOPICAL MO 05/11/21 08/16/24 History Albuterol Inhaler [Ventolin Hfa 2 puff INHALATION RT-Q4H PRN 12/04/21 08/16/24 History Inhaler] Ammonium Lactate Cream [Lac-Hydrin 1 applic TOPICAL DAILY PRN 12/04/21 08/16/24 History 12% Cream] Niacinamide 500 mg PO BID@0800,1700 12/04/21 08/16/24 History Omeprazole 40 mg PO DAILY@169912/04/21 08/16/24 History EPINEPHrine (Auto Inject) [Epipen] 0.3 mg IM ONCE PRN 06/21/23 08/16/24 History Multivitamins, Thera [Multivitamin 1 tab PO DAILY@169906/21/23 08/16/24 History (formulary)] Na Phos,M-B/Na Phos,Di-Ba [Fleet 133 ml RECTAL DAILY PRN 06/21/23 08/16/24 History Adult] bisacodyL [Dulcolax] 10 mg RECTAL DAILY PRN 06/21/23 08/16/24 History guaiFENesin [guaiFENesin Oral 200 mg PO Q4H PRN 06/21/23 08/16/24 History Solution] Atropine Sulfate/Pf [Atropine 1% 2 drop SL BID@0800,1700 01/29/24 08/16/24 History Eye Drops] Acetaminophen Oral Susp [Tylenol] 650 mg PO Q4H PRN 08/16/24 08/16/24 History Acetaminophen Suppository [Tylenol 650 mg RECTAL Q4H PRN 08/16/24 08/16/24 History Suppository] Acetaminophen Tab [Tylenol] 650 mg PO Q4H PRN 08/16/24 08/16/24 History Chlorhexidine Gluconate [Peridex] 15 ml PO BID@0800,1700 08/16/24 08/16/24 History Ensure Enlive 474 ml PO 0800,1200,1700 08/16/24 08/16/24 History HYDROcodone/APAP 7.5-325MG [[place] 1 tab PO Q6H PRN 08/16/24 08/16/24 History 7.5-325] Ipratropium-Albuterol Nebulize 3 ml INHALATION RT-Q6H PRN 08/16/24 08/16/24 History [Duoneb 0.5 mg-3 mg/3 ml Soln] Magic Cup 1 dose PO BID@1200,1700 08/16/24 08/16/24 History Magnesium Hydroxide [Milk of 7,200 mg PO Q2D PRN MDD 2 days no 08/16/24 08/16/24 History Magnesia Concentrate] BM Melatonin 3 mg PO HS@2100 08/16/24 08/16/24 History Menthol [Biofreeze] 1 applic TOPICAL HS PRN 08/16/24 08/16/24 History Orajel 2x Toothace & Gum 1 applic DENTAL TID PRN 08/16/24 08/16/24 History Mouth/Throat Gel 20-0.26% Huizar Milk Of Magnesia 325mg 325 mg PO DAILY PRN 08/16/24 08/16/24 History Chewable Tab SILVER sulfADIAZINE Cream 1 applic TOPICAL BID 08/16/24 08/16/24 History [Silvadene 1% Cream] polyethylene glycoL 3350 [Miralax] 17 gm PO Q2D@0800 08/16/24 08/16/24 History traMADol HCL 50 mg PO Q6H PRN 08/16/24 08/16/24 History Allergies Allergy/AdvReac Type Severity Reaction Status Date / Time bee venom protein (honey bee) Allergy Unknown Verified 08/16/24 09:39 Penicillins Allergy Unknown Verified 08/16/24 09:39 Childhood Surgical - Exam Vital Signs Temp Pulse Resp BP Pulse Ox 100.4 F H 95 17 131/61 92 L 08/15/24 20:53 08/15/24 20:53 08/15/24 20:53 08/15/24 20:53 08/15/24 20:53 Results - Labs 08/19/24 06:08 08/19/24 12:52 Abnormal Lab Results - Last 24 Hours (Table) 08/19/24 08/19/24 Range/Units 06:08 06:08 WBC 18.4 H (3.8-10.6) k/uL MCHC 30.6 L (31.0-37.0) g/dL Neutrophils # 17.0 H (1.3-7.7) k/uL Lymphocytes # 0.6 L (1.0-4.8) k/uL BUN 35 H (9-20) mg/dL Glucose 121 H (74-99) mg/dL Albumin 3.2 L (3.5-5.0) g/dL Microbiology - Last 24 Hours (Table) 08/15/24 23:05 Blood Culture - Preliminary Blood Diabetes panel 08/19/24 08/19/24 Range/Units 06:08 12:52 Sodium 144 142 (137-145) mmol/L Potassium 3.5 (3.5-5.1) mmol/L Chloride 107 (98-107) mmol/L Carbon Dioxide 24 (22-30) mmol/L BUN 35 H (9-20) mg/dL Creatinine 0.75 (0.66-1.25) mg/dL Glucose 121 H (74-99) mg/dL Calcium 9.8 (8.4-10.2) mg/dL AST 36 (17-59) U/L ALT 25 (4-49) U/L Alkaline Phosphatase 89 (38-126) U/L Total Protein 6.6 (6.3-8.2) g/dL Albumin 3.2 L (3.5-5.0) g/dL Calcium panel 08/19/24 Range/Units 06:08 Calcium 9.8 (8.4-10.2) mg/dL Albumin 3.2 L (3.5-5.0) g/dL Pituitary panel 08/19/24 08/19/24 Range/Units 06:08 12:52 Sodium 144 142 (137-145) mmol/L Potassium 3.5 (3.5-5.1) mmol/L Chloride 107 (98-107) mmol/L Carbon Dioxide 24 (22-30) mmol/L BUN 35 H (9-20) mg/dL Creatinine 0.75 (0.66-1.25) mg/dL Glucose 121 H (74-99) mg/dL Calcium 9.8 (8.4-10.2) mg/dL Adrenal panel 08/19/24 08/19/24 Range/Units 06:08 12:52 Sodium 144 142 (137-145) mmol/L Potassium 3.5 (3.5-5.1) mmol/L Chloride 107 (98-107) mmol/L Carbon Dioxide 24 (22-30) mmol/L BUN 35 H (9-20) mg/dL Creatinine 0.75 (0.66-1.25) mg/dL Glucose 121 H (74-99) mg/dL Calcium 9.8 (8.4-10.2) mg/dL Total Bilirubin 0.7 (0.2-1.3) mg/dL AST 36 (17-59) U/L ALT 25 (4-49) U/L Alkaline Phosphatase 89 (38-126) U/L Total Protein 6.6 (6.3-8.2) g/dL Albumin 3.2 L (3.5-5.0) g/dL
[2024-08-19] MEDS: PIPERACILLIN-TAZOBACTAM 3.375 GM in SODIUM CHLORIDE 0.9% 100 ML IVPB SCH (15:36)
--- NOTE | 2024-08-19 16:12 | P.PN ---
Progress Note - Text Progress Note Date: 08/19/24 Chief Complaint: Fever 88-year-old male with a past medical history of hypertension, hyperlipidemia, history of CVA with right-sided paralysis and speech problems - wheelchair and dementia, anxiety and prior history of smoking and also right carotid endarterectomy resident of [facility]. Patient himself not able to give much of history. Keeps repeating things. As per the EMS run sheet staff informed patient had a recent procedure done to his mouth. Has been refusing all medications since then. Noticed to have a fever. Family decided to send him therefore to the ER. August 17: Admitted with right basal pneumonia. On IV ceftriaxone. More awake today. Answering some simple questions. Did not eat breakfast but had about 50% of lunch. Spoke with the at the bedside. August 18: Admitted with pneumonia. IV ceftriaxone. at the bedside. Fe eding lunch. Patient more awake and a bit more talkative today. Though per the still weak and not back to his baseline. 95% on 2 L. Slightly tachycardic. Afebrile. Discussed with the . Even though patient was full code as of 10 years ago now she wants the patient to be a DO NOT RESUSCITATE. In fact she supposed to meet up with the social work professor from [facility] to change that. Will change patient's CODE STATUS. August 19: Around 3 AM this morning patient started having coffee-ground emesis. Short of breath. Critical care was consulted. Chest x-ray and abdominal x-ray showed evidence of bowel obstruction. CT scan done this afternoon shows moderate to large colonic stool burden with large rectal fecaloma. Infrarenal abdominal aortic aneurysm 3.1 cm. Basal lung consolida tion. Patient a bit tired. General surgery Dr. Tomas was consulted. NG tube being ordered by general surgery. Will get his medications through that. Active Medications Acetaminophen (Acetaminophen Tab 325 Mg Tab) 650 mg PO Q4H PRN PRN Reason: Fever and/ or Mild Pain Hydrocodone Bitart/Acetaminophen (Hydrocodone/Apap 7.5-325mg 1 Each Tab) 1 each PO Q6H PRN PRN Reason: Severe Pain (Scale 7 to 10) Albuterol/Ipratropium (Ipratropium-Albuterol 3 Ml Neb) 3 ml INHALATION RT-Q6H PRN PRN Reason: COPD Amlodipine Besylate (Amlodipine 5 Mg Tab) 5 mg PO DAILY@0800 [facility] Last Admin: 08/19/24 13:10 Dose: Not Given Atorvastatin Calcium (Atorvastatin 10 Mg Tab) 10 mg PO HS@2100 [facility] Last Admin: 08/18/24 21:30 Dose: 10 mg Atropine Sulfate (Atropine Ophth Soln 1% 5ml Btl) 2 drops SUBLINGUAL BID@0800,1700 [facility] Last Admin: 08/19/24 13:10 Dose: Not Given Bisacodyl (Bisacodyl 10 Mg Supp) 10 mg RECTAL DAILY PRN PRN Reason: Constipation Calcium Carbonate/Glycine (Calcium Carbonate 500 Mg Chewable) 1,000 mg PO Q4HR PRN PRN Reason: Dyspepsia Chlorhexidine Gluconate (Chlorhexidine Gluconate 15 Ml Cup) 15 ml MUCOUS MEM BID@0800,1700 [facility] Last Admin: 08/19/24 13:10 Dose: Not Given Cholecalciferol (Cholecalciferol 125 Mcg (5000 Iu) Tablet) 125 mcg PO DAILY@1700 [facility] Last Admin: 08/18/24 14:30 Dose: 125 mcg Enoxaparin Sodium (Enoxaparin 40 Mg/0.4 Ml Syringe) 40 mg SQ DAILY [facility] Last Admin: 08/19/24 09:04 Dose: 40 mg Guaifenesin (Guaifenesin Syrup 100mg/5ml 200 Mg/10 Ml Cup) 200 mg PO Q4H PRN PRN Reason: Cough Lactated Ringer's (Lactated Ringers) 1,000 mls @ 50 mls/hr IV .Q20H [facility] Last Admin: 08/18/24 14:27 Dose: Not Given Piperacillin Sod/Tazobactam (Sod 3.375 gm/ Sodium Chloride) 100 mls @ 25 mls/hr IVPB Q8H [facility]; Protocol Last Admin: 08/19/24 15:36 Dose: 25 mls/hr Lorazepam (Lorazepam 2 Mg/Ml Inj) 0.5 mg IV Q6HR PRN PRN Reason: Anxiety Magnesium Hydroxide (Magnesium Hydroxide 2,400 Mg/30 Ml Cup) 7,200 mg PO Q2D PRN PRN Reason: Constipation Melatonin (Melatonin 3 Mg Tablet) 3 mg PO HS@2100 [facility] Last Admin: 08/18/24 21:30 Dose: 3 mg Multivitamins (Multivitamins, Thera 1 Each Tab) 1 each PO DAILY@1700 [facility] Last Admin: 08/18/24 14:30 Dose: 1 each Naloxone HCl (Naloxone 0.4 Mg/Ml 1 Ml Vial) 0.2 mg IV Q2M PRN PRN Reason: Opioid Reversal Niacin (Niacin Tr 500 Mg Caplet) 500 mg PO BID@0800,1700 [facility] Last Admin: 08/19/24 13:11 Dose: Not Given Ondansetron HCl (Ondansetron 4 Mg/2 Ml Vial) 4 mg IVP Q8HR PRN PRN Reason: Nausea And Vomiting Last Admin: 08/19/24 04:59 Dose: 4 mg Pantoprazole Sodium (Pantoprazole 40 Mg Tablet) 40 mg PO DAILY@1700 [facility] Last Admin: 08/17/24 17:11 Dose: 40 mg Polyethylene Glycol (Polyethylene Glycol 3350 17 Gm Powd.Pack) 17 gm PO Q2D@0800 [facility] Last Admin: 08/18/24 08:42 Dose: 17 gm Silver Sulfadiazine (Silver Sulfadiazine 1% Cream 25 Gm Tube) 1 applic TOPICAL BID [facility] Last Admin: 08/19/24 15:36 Dose: 1 applic Sodium Biphosphate/Sodium Phosphate (Na Phos,M-B/Na Phos,Di-Ba 133 Ml Enema) 133 ml RECTAL DAILY PRN PRN Reason: Constipation Tamsulosin HCl (Tamsulosin 0.4 Mg Cap.Er.24h) 0.4 mg PO HS@2100 [facility] Last Admin: 08/18/24 21:30 Dose: 0.4 mg Tramadol HCl (Tramadol 50 Mg Tab) 50 mg PO Q6H PRN PRN Reason: Moderate Pain (Scale 4 to 6) Past medical history to include: Hypertension, hyperlipidemia, BPH, moderate cognitive impairment from prior stroke, GERD, right-sided weakness from prior stroke, dysarthria, chronic medical debility using a wheelchair, Harris's esophagus Social history: . smoked for about 35 years, cigars. Stop smoking about 24 years ago. Uses a wheelchair -at [facility] PHYSICAL EXAMINATION: VITAL SIGNS: 97.9, 93, 18, 112 x 59, 100% on 15 L nonrebreather GENERAL: Reclining in bed, awake short of breath EYES: Pupils equal. Conjunctiva normal. HEENT: External appearance of nose and ears normal, oral cavity-dry mucous NECK: JVD not raised; masses not palpable. HEART: First and second heart sounds are normal; no edema. LUNGS: Respiratory rate increased l, decreased breath sound. ABDOMEN: Soft, nontender, liver spleen not palpable, no masses palpable. PSYCH: Answering simple questions MUSCULOSKELETAL:No Clubbing/cyanosis;muscles-grossly intact. Evidence of OA. Loss of muscle mass and subcutaneous fat. Prominent bones NEUROLOGICAL: . dysarthria. Right arm weakness with hand contracture. Mild right leg weakness. INVESTIGATIONS, reviewed in the clinical context: August 19: White count 18.4 hemoglobin 13 potassium 3.5 creatinine 0.75 August 18: White: 0.4 hemoglobin 12.6 potassium 3.5 creatinine 0.79 August 17: White count 14.8 hemoglobin 12.6 potassium 3.4 creatinine 0.78 procalcitonin 0.38 August 15, 2024: White count 22.2 hemoglobin 11.9 platelets 297 sodium 141 potassium 4.9 BUN 38 creatinine 1.04 Troponin I 0.046 UA: Trace protein Influenza type A, type B, RSV, COVID-19: Not detected EKG tracing personally reviewed by me-normal sinus rhythm. Nonspecific ST changes. Chest x-ray film personally reviewed by me-probable right base infiltrate Assessment and plan: -Right basal pneumonia suspect gram-negative organism: Some worsening IV ceftriaxone 2 g daily -Worsening pneumonia possibly aspiration patient requiring nonrebreather 15 L -Acute large bowel obstruction with emesis. Patient has large fecaloma: New diagnosis CT scan abdominal x-ray was done. N.p.o. General surgery Dr. Tomas consulted -Acute metabolic encephalopathy with infection/pneumonia on presentation: Better - severe cognitive impairment from advanced dementia - Harris's esophagus PPI Essential Hypertension -Amlodipine -Hyperlipidemia Lipitor -Clinically protein calorie malnutrition loss of muscle mass subcutaneous fat. Recheck albumin after hydration. Compact Ensure 1 can 3 times daily GERD -PPI BPH -Flomax -Right-sided paresis with right arm contracture with right arm weakness more than the Márquez from prior stroke and chronic dysarthria -Positive troponin. Probably from hemodynamic mismatch in the setting of infection. 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
[2024-08-19] MEDS: SODIUM CHLORIDE 0.9% 1,000 ML IV SCH (17:06)
[2024-08-20 09:39] LABS: African American GFR (CKD) 89 (>60 ml/min/1.73 sqM); Anion Gap 11 mmol/L; Blood Urea Nitrogen 33 mg/dL (9-20); Calcium 9.6 mg/dL (8.4-10.2); Carbon Dioxide 27 mmol/L (22-30); Chloride 109 mmol/L (98-107); Glucose 89 mg/dL (74-99); Non-African American GFR(CKD) 77 (>60 ml/min/1.73 sqM); Potassium 3.8 mmol/L (3.5-5.1); Sodium 147 mmol/L (137-145)
--- NOTE | 2024-08-20 12:42 | P.PN ---
Subjective Progress Note Date: 08/20/24 SURGICAL PROGRESS NOTE CHIEF COMPLAINT: Aspiration pneumonia HISTORY OF PRESENT ILLNESS: Surgical service is following in regards to the large rectal fecaloma. Patient had a soapsuds enema last night with no results. 2 soap elana enemas given this morning with a large amount of stool. Patient denies any abdominal pain. Denies any rectal pain. Denies any nausea or vomiting. He is off the nonrebreather on nasal cannula. Afebrile. PHYSICAL EXAM: VITAL SIGNS: Reviewed. GENERAL: in no acute distress. ABDOMEN: Soft. Nondistended. Nontender. NEUROLOGIC: Awake and alert ASSESSMENT: 1. Large rectal fecaloma and colonic stool burden 2. Possible aspiration pneumonia PLAN: -Continue soap elana enemas until clear -Patient scheduled for sigmoidoscopy tomorrow with Dr. Tomas -Patient can have a clear liquid diet today if cleared by speech therapy -N.p.o. after midnight -Continue antibiotics Physician [employer] note has been reviewed by physician. Signing provider agrees with the documented findings, assessment, and plan of care. Objective - Vital Signs Vital signs: Vital Signs Temp 97.5 F L 08/20/24 11:07 Pulse 101 H 08/20/24 11:07 Resp 17 08/20/24 11:07 BP 112/57 08/20/24 11:07 Pulse Ox 97 08/20/24 11:07 FiO2 Intake & Output 08/19/24 08/20/24 08/20/24 18:59 06:59 18:59 Intake Total 20 Output Total 0 Balance 20 0 Weight 56.5 kg Intake: IV 20 Invasive Line 5 20 Output: Urine 0 Other: Voiding Method Diaper Diaper Diaper Incontinent Incontinent Incontinent # Voids 1 0 1 # Bowel Movements 1 3 - Labs CBC & Chem 7: 08/19/24 06:08 08/20/24 09:03 Labs: Abnormal Lab Results - Last 24 Hours (Table) 08/20/24 Range/Units 09:03 Sodium 147 H (137-145) mmol/L Chloride 109 H (98-107) mmol/L BUN 33 H (9-20) mg/dL Microbiology - Last 24 Hours (Table) 08/15/24 23:05 Blood Culture - Preliminary Blood
--- NOTE | 2024-08-20 18:15 | P.PN ---
Subjective Progress Note Date: 08/20/24 Patient is an 88-year-old male apparently sent in from his ECF back on 08/15/2024 for fevers and possible pneumonia. Patient has past medical history significant for CVA/TIA with right-sided paralysis, right-sided contractures, carotid artery stenosis, hyperlipidemia, hypertension, among other things. Pulmonary consult was placed last night early this morning for potential aspiration. Patient himself is unable to provide any reliable information. Apparently, earlier this morning patient had an episode of vomiting, possibly fecal content per the nurse. Subsequently, developed some respiratory distress, placed on a 15 L nonrebreather. Follow-up chest x-ray showing bibasilar infiltrates. Abdominal x-ray showing air-filled dilated loops of the large and small bowel. CBC: WBC count 18.4, hemoglobin 13, hematocrit 42.3, platelets 242. CMP unremarkable, electrolytes WDL, creatinine 0.75, glucose 121. LFTs not elevated. Viral screen on admission negative for influenza, RSV, COVID. Urinalysis unremarkable for infection. Patient currently being evaluated on the cardiac stepdown unit. He is lethargic, tachypneic, has a congested and weak cough, trouble clearing secretions. On a 15 L nonrebreather, SpO2 reading 98%. Abdomen is firm and tender to palpation. 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 Patient has a DO NOT RESUSCITATE/DO NOT INTUBATE status. On today's evaluation of 08/20/2024, the patient is resting comfortably in bed. No significant respiratory distress. Afebrile. Remains on 3 L of oxygen by nasal cannula with pulse ox of 97%. Noted general surgery is on the case and the patient has significant fecal impaction and large rectal fecaloma. The patient is receiving soapsuds enemas and the patient already received 2 of those enemas with good results. The patient is n.p.o. after midnight and the patient is going to undergo a sigmoidoscopy tomorrow. No abdominal pain. No nausea or emesis. Sodium is at 147, BUN 33 with a catheter 0.9. Procalcitonin level is at 0.36. Remains on IV Zosyn. Rest of the medication remains unchanged. Tana ins on Lovenox for DVT prophylaxis. Currently on lactated Ringer at rate of 50 cc an hour the patient will be switched to D5 water. Objective - Vital Signs Vital signs: Vital Signs Temp 97.5 F L 08/20/24 11:07 Pulse 101 H 08/20/24 11:07 Resp 17 08/20/24 11:07 BP 112/57 08/20/24 11:07 Pulse Ox 97 08/20/24 11:07 FiO2 Intake & Output 08/19/24 08/20/24 08/20/24 18:59 06:59 18:59 Intake Total 20 Output Total 0 Balance 20 0 Weight 56.5 kg Intake: IV 20 Invasive Line 5 20 Output: Urine 0 Other: Voiding Method Diaper Diaper Diaper Incontinent Incontinent Incontinent # Voids 1 0 1 # Bowel Movements 1 3 - Exam GENERAL EXAM: Lethargic, 88-year-old male, right-sided neglect, on a 3 L of oxygen by nasal cannula HEAD: Normocephalic and atraumatic EYES: Normal reaction of pupils, equal size. NOSE: Clear with pink turbinates. THROAT: No erythema or exudates. NECK: No masses, no JVD. CHEST: No chest wall deformity. LUNGS: Equal air entry with diffuse rhonchi bilaterally and crackles heard at the bases. No significant respiratory distress and the patient's breathing is nonlabored on today's evaluation. CVS: S1 and S2 normal with no audible murmur, regular rhythm. No extra heart sounds ABDOMEN: Abdomen is firm and distended, a hypoactive bowel sounds, tender to palpation, no hepatosplenomegaly. SPINE: No scoliosis or deformity SKIN: No rashes CENTRAL NERVOUS SYSTEM: Lethargic, does not follow commands or accurately answer questioning, right-sided hemiplegia and contractures EXTREMITIES: There is no peripheral edema, clubbing, or cyanosis. Peripheral pulses are intact. - Labs CBC & Chem 7: 08/19/24 06:08 08/20/24 09:03 Labs: Abnormal Lab Results - Last 24 Hours (Table) 08/20/24 Range/Units 09:03 Sodium 147 H (137-145) mmol/L Chloride 109 H (98-107) mmol/L BUN 33 H (9-20) mg/dL Microbiology - Last 24 Hours (Table) 08/15/24 23:05 Blood Culture - Preliminary Blood Assessment and Plan Assessment: Acute hypoxic respiratory failure, questionable aspiration. Nevertheless, the patient's shortness of breath was essentially attributed to clinical infection and significant abdominal distention with pulmonary restriction. Currently stable on 3 L of oxygen nasal cannula Acute hypoxemic respiratory failure, currently on a 3 L of oxygen nasal cannula Abdominal pain, secondary to extensive fecaloma and fecal impaction Acute leukocytosis History of CVA with residual right-sided deficits Hypertension History of hyperlipidemia ECF resident Plan: Patient currently on 15 L 3 L of oxygen by nasal cannula Patient had a witnessed aspiration event, possible fecal like content per staff nurse Cover patient empiric antibiotics for probable aspiration pneumonia CAT scan of the abdomen and pelvis that was done on this patient. The patient has large colonic stool burden with large rectal fecaloma with some mild surrounding inflammatory changes that is concerning for stercoral colitis. The patient also has a stable infrarenal abdominal aortic aneurysm measuring 3.1 cm in size. Some atelectatic changes in the lung bases right more than left. Continue enemas and the patient has soapsuds enema x 2 with good results N.p.o. after midnight and the patient is going to undergo a sigmoidoscopy in a .m. general surgery is on the case Continue IV Zosyn Switch the patient's IV fluids to D5 water at rate of 75 cc an hour Overall condition is guarded, secondary to above mentioned comorbidities Patient carries a DO NOT RESUSCITATE/DO NOT INTUBATE status We will continue to follow
--- NOTE | 2024-08-20 18:55 | P.PN ---
Progress Note - Text Progress Note Date: 08/20/24 Chief Complaint: Fever 88-year-old male with a past medical history of hypertension, hyperlipidemia, history of CVA with right-sided paralysis and speech problems - wheelchair and dementia, anxiety and prior history of smoking and also right carotid endarterectomy resident of [facility]. Patient himself not able to give much of history. Keeps repeating things. As per the EMS run sheet staff informed patient had a recent procedure done to his mouth. Has been refusing all medications since then. Noticed to have a fever. Family decided to send him therefore to the ER. August 17: Admitted with right basal pneumonia. On IV ceftriaxone. More awake today. Answering some simple questions. Did not eat breakfast but had about 50% of lunch. Spoke with the at the bedside. August 18: Admitted with pneumonia. IV ceftriaxone. at the bedside. Fe eding lunch. Patient more awake and a bit more talkative today. Though per the still weak and not back to his baseline. 95% on 2 L. Slightly tachycardic. Afebrile. Discussed with the . Even though patient was full code as of 10 years ago now she wants the patient to be a DO NOT RESUSCITATE. In fact she supposed to meet up with the vp digital marketing social media and crm from [facility] to change that. Will change patient's CODE STATUS. August 19: Around 3 AM this morning patient started having coffee-ground emesis. Short of breath. Critical care was consulted. Chest x-ray and abdominal x-ray showed evidence of bowel obstruction. CT scan done this afternoon shows moderate to large colonic stool burden with large rectal fecaloma. Infrarenal abdominal aortic aneurysm 3.1 cm. Basal lung consolida tion. Patient a bit tired. General surgery Dr. Tomas was consulted. NG tube being ordered by general surgery. Will get his medications through that. August 20: Patient never received NG tube per surgery. Patient had soapsuds enema last night with no results. 2 soapsuds enemas this morning had a large amount of stool. Also further during the day. X-ray later today shows nonspecific gas pattern. Abdomen soft. No further vomiting. Dr. Tomas's schedule patient for a sigmoidoscopy tomorrow. From a Ventimask yesterday patient down to 3 L today. Continue IV fluids. N.p.o. after midnight. Active Medications Acetaminophen (Acetaminophen Tab 325 Mg Tab) 650 mg PO Q4H PRN PRN Reason: Fever and/ or Mild Pain Hydrocodone Bitart/Acetaminophen (Hydrocodone/Apap 7.5-325mg 1 Each Tab) 1 each PO Q6H PRN PRN Reason: Severe Pain (Scale 7 to 10) Albuterol/Ipratropium (Ipratropium-Albuterol 3 Ml Neb) 3 ml INHALATION RT-Q6H PRN PRN Reason: COPD Amlodipine Besylate (Amlodipine 5 Mg Tab) 5 mg PO DAILY@0800 [facility] Last Admin: 08/20/24 15:57 Dose: 5 mg Atorvastatin Calcium (Atorvastatin 10 Mg Tab) 10 mg PO HS@2100 [facility] Last Admin: 08/19/24 22:27 Dose: Not Given Atropine Sulfate (Atropine Ophth Soln 1% 5ml Btl) 2 drops SUBLINGUAL BID@0800,1700 [facility] Last Admin: 08/20/24 17:36 Dose: 2 drops Bisacodyl (Bisacodyl 10 Mg Supp) 10 mg RECTAL DAILY PRN PRN Reason: Constipation Calcium Carbonate/Glycine (Calcium Carbonate 500 Mg Chewable) 1,000 mg PO Q4HR PRN PRN Reason: Dyspepsia Chlorhexidine Gluconate (Chlorhexidine Gluconate 15 Ml Cup) 15 ml MUCOUS MEM BID@0800,1700 [facility] Last Admin: 08/20/24 15:59 Dose: 15 ml Cholecalciferol (Cholecalciferol 125 Mcg (5000 Iu) Tablet) 125 mcg PO DAILY@1700 [facility] Last Admin: 08/20/24 15:57 Dose: 125 mcg Enoxaparin Sodium (Enoxaparin 40 Mg/0.4 Ml Syringe) 40 mg SQ DAILY [facility] Last Admin: 08/20/24 09:07 Dose: 40 mg Guaifenesin (Guaifenesin Syrup 100mg/5ml 200 Mg/10 Ml Cup) 200 mg PO Q4H PRN PRN Reason: Cough Piperacillin Sod/Tazobactam (Sod 3.375 gm/ Sodium Chloride) 100 mls @ 25 mls/hr IVPB Q8H [facility]; Protocol Last Admin: 08/20/24 17:36 Dose: 25 mls/hr Dextrose/Water (Dextrose 5%-Water Iv Soln) 1,000 mls @ 75 mls/hr IV .[id number] [facility] Lorazepam (Lorazepam 2 Mg/Ml Inj) 0.5 mg IV Q6HR PRN PRN Reason: Anxiety Magnesium Hydroxide (Magnesium Hydroxide 2,400 Mg/30 Ml Cup) 7,200 mg PO Q2D PRN PRN Reason: Constipation Melatonin (Melatonin 3 Mg Tablet) 3 mg PO HS@2100 [facility] Last Admin: 08/19/24 22:27 Dose: Not Given Multivitamins (Multivitamins, Thera 1 Each Tab) 1 each PO DAILY@1700 [facility] Last Admin: 08/20/24 15:57 Dose: 1 each Naloxone HCl (Naloxone 0.4 Mg/Ml 1 Ml Vial) 0.2 mg IV Q2M PRN PRN Reason: Opioid Reversal Niacin (Niacin Tr 500 Mg Caplet) 500 mg PO BID@0800,1700 [facility] Last Admin: 08/20/24 15:59 Dose: 500 mg Ondansetron HCl (Ondansetron 4 Mg/2 Ml Vial) 4 mg IVP Q8HR PRN PRN Reason: Nausea And Vomiting Last Admin: 08/19/24 04:59 Dose: 4 mg Pantoprazole Sodium (Pantoprazole 40 Mg Tablet) 40 mg PO DAILY@1700 [facility] Last Admin: 08/20/24 15:57 Dose: 40 mg Polyethylene Glycol (Polyethylene Glycol 3350 17 Gm Powd.Pack) 17 gm PO Q2D@0800 [facility] Last Admin: 08/20/24 15:57 Dose: 17 gm Silver Sulfadiazine (Silver Sulfadiazine 1% Cream 25 Gm Tube) 1 applic TOPICAL BID [facility] Last Admin: 08/20/24 09:17 Dose: 1 applic Sodium Biphosphate/Sodium Phosphate (Na Phos,M-B/Na Phos,Di-Ba 133 Ml Enema) 133 ml RECTAL DAILY PRN PRN Reason: Constipation Tamsulosin HCl (Tamsulosin 0.4 Mg Cap.Er.24h) 0.4 mg PO HS@2100 [facility] Last Admin: 08/19/24 22:27 Dose: Not Given Tramadol HCl (Tramadol 50 Mg Tab) 50 mg PO Q6H PRN PRN Reason: Moderate Pain (Scale 4 to 6) Past medical history to include: Hypertension, hyperlipidemia, BPH, moderate cognitive impairment from prior stroke, GERD, right-sided weakness from prior stroke, dysarthria, chronic medical debility using a wheelchair, Harris's esophagus Social history: . smoked for about 35 years, cigars. Stop smoking about 24 years ago. Uses a wheelchair -at [facility] PHYSICAL EXAMINATION: VITAL SIGNS: 97.5, 71, 16, 129 x 55, 96% on 3 L GENERAL: Reclining in bed, awake comfortable EYES: Pupils equal. Conjunctiva normal. HEENT: External appearance of nose and ears normal, oral cavity-dry mucous NECK: JVD not raised; masses not palpable. HEART: First and second heart sounds are normal; no edema. LUNGS: Respiratory rate normal decreased breath sound. ABDOMEN: Soft, nontender, liver spleen not palpable, no masses palpable. PSYCH: Answering simple questions MUSCULOSKELETAL:No Clubbing/cyanosis;muscles-grossly intact. Evidence of OA. Loss of muscle mass and subcutaneous fat. Prominent bones NEUROLOGICAL: . dysarthria. Right arm weakness with hand contracture. Mild right leg weakness. INVESTIGATIONS, reviewed in the clinical context: August 20: Sodium 147 creatinine 0.9 August 19: White count 18.4 hemoglobin 13 potassium 3.5 creatinine 0.75 August 18: White: 0.4 hemoglobin 12.6 potassium 3.5 creatinine 0.79 August 17: White count 14.8 hemoglobin 12.6 potassium 3.4 creatinine 0.78 procalcitonin 0.38 August 15, 2024: White count 22.2 hemoglobin 11.9 platelets 297 sodium 141 potassium 4.9 BUN 38 creatinine 1.04 Troponin I 0.046 UA: Trace protein Influenza type A, type B, RSV, COVID-19: Not detected EKG tracing personally reviewed by me-normal sinus rhythm. Nonspecific ST changes. Chest x-ray film personally reviewed by me-probable right base infiltrate Assessment and plan: -Right basal pneumonia suspect gram-negative organism:, With aspiration pneumonitis on August 19 IV ceftriaxone 2 g daily given initially. Started on IV Zosyn on August 19 -Acute hypoxic respiratory failure from aspiration pneumonia Initially requiring a Ventimask. Today down to 3 L -Acute large bowel obstruction with emesis. Patient has large fecaloma: Had responded well to soapsuds enemas this morning. For very large bowel movements. Being followed by Dr. Tomas. Plan for sigmoidoscopy tomorrow -Acute metabolic encephalopathy with infection/pneumonia on presentation: Much improved - severe cognitive impairment from advanced dementia - Harris's esophagus PPI Essential Hypertension -Amlodipine -Hyperlipidemia Lipitor -Moderate protein calorie malnutrition loss of muscle mass subcutaneous fat. Albumin 3.2 Compact Ensure 1 can 3 times daily GERD -PPI BPH -Flomax -Right-sided paresis with right arm contracture with right arm weakness more than the Márquez from prior stroke and chronic dysarthria -Positive troponin. Probably from hemodynamic mismatch in the setting of infection. 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
--- NOTE | 2024-08-20 19:28 | XR ---
EXAMINATION TYPE: XR abdomen 2V DATE OF EXAM: 08/20/2024 6:51 PM COMPARISON: 08/19/2024 CLINICAL INDICATION: Male, 88 years old with history of Follow-up obstruction, TECHNIQUE: XR abdomen 2V view(s) obtained. FINDINGS: Nonspecific bowel gas is present within small bowel loops as well as the colon. No mass effect is audrey dent. Vascular calcifications within the aorta and iliac vessels. Previous large fecal bolus within t he pelvis is resolved. Poorly visualized No organomegaly is present. There is elevation of the right diaphragm. IMPRESSION: 1. Nonspecific abdomen. No suspicious changes for obstruction identified. [facility], , 08/20/2024 7:25 PM
[2024-08-20] MEDS: DEXTROSE 5% IN WATER 1,000 ML IV SCH (21:52)
[2024-08-21 08:21] LABS: Basophils % (A) 0 %; Eosinophils # (A) 0.4 k/uL (0-0.7); Eosinophils % (A) 5 %; HCT 31.3 % (39.0-53.0); Hypochromasia Slight; Lymphocytes # (A) 0.9 k/uL (1.0-4.8); Lymphocytes % (A) 11 %; MCH 30.1 pg (25.0-35.0); MCHC 31.6 g/dL (31.0-37.0); MCV 95.4 fL (80.0-100.0); Mean Platelet Volume 8.1; Monocytes # (A) 0.3 k/uL (0-1.0); Monocytes % (A) 3 %; Neutrophils # (A) 6.5 k/uL (1.3-7.7); Neutrophils % (A) 78 %; Platelet Count 214 k/uL (150-450); RBC 3.28 m/uL (4.30-5.90); RDW 14.6 % (11.5-15.5); WBC 8.3 k/uL (3.8-10.6)
[2024-08-21 08:36] LABS: African American GFR (CKD) >90 (>60 ml/min/1.73 sqM); Anion Gap 3 mmol/L; Blood Urea Nitrogen 21 mg/dL (9-20); Calcium 8.8 mg/dL (8.4-10.2); Carbon Dioxide 29 mmol/L (22-30); Chloride 108 mmol/L (98-107); Glucose 108 mg/dL (74-99); Non-African American GFR(CKD) 80 (>60 ml/min/1.73 sqM); Potassium 3.2 mmol/L (3.5-5.1); Sodium 140 mmol/L (137-145)
[2024-08-21 08:47] LABS: HGB 9.9 gm/dL (13.0-17.5)
[2024-08-21] MEDS: IV FLUID CONTINUATION 1,000 ML IV ONE (11:06)
[2024-08-21] MEDS ORDERED: PROPOFOL 10 MG/ML 20 ML VIAL IV ONE (11:08)
--- NOTE | 2024-08-21 11:35 | P.OP ---
Date of Procedure: 08/21/24 Preoperative Diagnosis: Fecal impaction Postoperative Diagnosis: Fecal impaction Procedure(s) Performed: Digital disimpaction Sigmoidoscopy Anesthesia: MAC Surgeon: Yung Tomas Pathology: none sent Condition: stable Disposition: PACU Description of Procedure: The patient was placed on the endoscopy table in the lateral position. He received IV sedation. Digital rectal exam was performed. This revealed a large amount of li stool. This was manually disimpacted. The flexible sigmoid scope then placed patient anus and passed in the sigmoid colon large amount stool seen. Scope was withdrawn.
--- NOTE | 2024-08-21 12:23 | P.PN ---
Subjective Progress Note Date: 08/21/24 SURGICAL PROGRESS NOTE CHIEF COMPLAINT: Aspiration pneumonia HISTORY OF PRESENT ILLNESS: Surgical service is following in regards to the large rectal fecaloma. Patient had a soapsuds enema last night with no results. 2 soap elana enemas given this morning with a large amount of stool. Patient denies any abdominal pain. Denies any rectal pain. Denies any nausea or vomiting. He is off the nonrebreather on nasal cannula. Afebrile. PHYSICAL EXAM: VITAL SIGNS: Reviewed. GENERAL: in no acute distress. ABDOMEN: Soft. Nondistended. Nontender. NEUROLOGIC: Awake and alert ASSESSMENT: 1. Large rectal fecaloma and colonic stool burden 2. Possible aspiration pneumonia PLAN: -Continue soap elana enemas until clear -Patient scheduled for sigmoidoscopy tomorrow with Dr. Tomas -Patient can have a clear liquid diet today if cleared by speech therapy -N.p.o. after midnight -Continue antibiotics Physician Inspector note has been reviewed by physician. Signing provider agrees with the documented findings, assessment, and plan of care. Objective - Vital Signs Vital signs: Vital Signs Temp 98.2 F 08/21/24 08:00 Pulse 65 08/21/24 08:00 Resp 16 08/21/24 08:00 BP 90/62 08/21/24 08:00 Pulse Ox 95 08/21/24 08:00 FiO2 Intake & Output 08/20/24 08/21/24 08/21/24 18:59 06:59 18:59 Intake Total 50 Balance 50 Weight 54 kg Intake: IV 50 Other: Voiding Method Diaper Diaper Diaper Incontinent Incontinent Incontinent # Voids 1 0 # Bowel Movements 3 - Labs CBC & Chem 7: 08/21/24 08:04 08/21/24 08:04 Labs: Abnormal Lab Results - Last 24 Hours (Table) 08/21/24 08/21/24 Range/Units 08:04 08:04 RBC 3.28 L (4.30-5.90) m/uL Hgb 9.9 L D (13.0-17.5) gm/dL Hct 31.3 L (39.0-53.0) % Lymphocytes # 0.9 L (1.0-4.8) k/uL Potassium 3.2 L (3.5-5.1) mmol/L Chloride 108 H (98-107) mmol/L BUN 21 H (9-20) mg/dL Glucose 108 H (74-99) mg/dL
[2024-08-21] MEDS: PEG 3350 (236 GM/BTL) + LYTES 4,000 ML BOTTLE PO ONE (15:05)
--- NOTE | 2024-08-21 16:12 | P.PN ---
Progress Note - Text Progress Note Date: 08/21/24 Chief Complaint: Fever 88-year-old male with a past medical history of hypertension, hyperlipidemia, history of CVA with right-sided paralysis and speech problems - wheelchair and dementia, anxiety and prior history of smoking and also right carotid endarterectomy resident of [facility]. Patient himself not able to give much of history. Keeps repeating things. As per the EMS run sheet staff informed patient had a recent procedure done to his mouth. Has been refusing all medications since then. Noticed to have a fever. Family decided to send him therefore to the ER. August 17: Admitted with right basal pneumonia. On IV ceftriaxone. More awake today. Answering some simple questions. Did not eat breakfast but had about 50% of lunch. Spoke with the at the bedside. August 18: Admitted with pneumonia. IV ceftriaxone. at the bedside. Fe eding lunch. Patient more awake and a bit more talkative today. Though per the still weak and not back to his baseline. 95% on 2 L. Slightly tachycardic. Afebrile. Discussed with the . Even though patient was full code as of 10 years ago now she wants the patient to be a DO NOT RESUSCITATE. In fact she supposed to meet up with the licensed master social worker from [facility] to change that. Will change patient's CODE STATUS. August 19: Around 3 AM this morning patient started having coffee-ground emesis. Short of breath. Critical care was consulted. Chest x-ray and abdominal x-ray showed evidence of bowel obstruction. CT scan done this afternoon shows moderate to large colonic stool burden with large rectal fecaloma. Infrarenal abdominal aortic aneurysm 3.1 cm. Basal lung consolida tion. Patient a bit tired. General surgery Dr. Tomas was consulted. NG tube being ordered by general surgery. Will get his medications through that. August 20: Patient never received NG tube per surgery. Patient had soapsuds enema last night with no results. 2 soapsuds enemas this morning had a large amount of stool. Also further during the day. X-ray later today shows nonspecific gas pattern. Abdomen soft. No further vomiting. Dr. Tomas's schedule patient for a sigmoidoscopy tomorrow. From a Ventimask yesterday patient down to 3 L today. Continue IV fluids. N.p.o. after midnight. August 29: Patient had a lot of bowel movements yesterday. Today underwent sigmoidoscopy. Prior to that digital disimpaction was done by Dr Tomas. Sigmoidoscopy showed significant amount of stool. Postprocedure colonoscopy prep was ordered for further clearing out. Discussed with at the bedside. Active Medications Acetaminophen (Acetaminophen Tab 325 Mg Tab) 650 mg PO Q4H PRN PRN Reason: Fever and/ or Mild Pain Hydrocodone Bitart/Acetaminophen (Hydrocodone/Apap 7.5-325mg 1 Each Tab) 1 each PO Q6H PRN PRN Reason: Severe Pain (Scale 7 to 10) Albuterol/Ipratropium (Ipratropium-Albuterol 3 Ml Neb) 3 ml INHALATION RT-Q6H PRN PRN Reason: COPD Amlodipine Besylate (Amlodipine 5 Mg Tab) 5 mg PO DAILY@0800 [facility] Last Admin: 08/21/24 12:17 Dose: 5 mg Atorvastatin Calcium (Atorvastatin 10 Mg Tab) 10 mg PO HS@2100 [facility] Last Admin: 08/20/24 21:19 Dose: 10 mg Atropine Sulfate (Atropine Ophth Soln 1% 5ml Btl) 2 drops SUBLINGUAL BID@0800, 1700 [facility] Last Admin: 08/21/24 12:18 Dose: 2 drops Bisacodyl (Bisacodyl 10 Mg Supp) 10 mg RECTAL DAILY PRN PRN Reason: Constipation Calcium Carbonate/Glycine (Calcium Carbonate 500 Mg Chewable) 1,000 mg PO Q4HR PRN PRN Reason: Dyspepsia Chlorhexidine Gluconate (Chlorhexidine Gluconate 15 Ml Cup) 15 ml MUCOUS MEM BID@0800,1700 [facility] Last Admin: 08/21/24 12:09 Dose: Not Given Cholecalciferol (Cholecalciferol 125 Mcg (5000 Iu) Tablet) 125 mcg PO DAILY@1700 [facility] Last Admin: 08/20/24 15:57 Dose: 125 mcg Enoxaparin Sodium (Enoxaparin 40 Mg/0.4 Ml Syringe) 40 mg SQ DAILY [facility] Last Admin: 08/21/24 12:17 Dose: 40 mg Guaifenesin (Guaifenesin Syrup 100mg/5ml 200 Mg/10 Ml Cup) 200 mg PO Q4H PRN PRN Reason: Cough Piperacillin Sod/Tazobactam (Sod 3.375 gm/ Sodium Chloride) 100 mls @ 25 mls/hr IVPB Q8H [facility]; Protocol Last Admin: 08/21/24 12:17 Dose: 25 mls/hr Dextrose/Water (Dextrose 5%-Water Iv Soln) 1,000 mls @ 75 mls/hr IV .[id number] [facility] Last Admin: 08/21/24 12:19 Dose: 75 mls/hr Lorazepam (Lorazepam 2 Mg/Ml Inj) 0.5 mg IV Q6HR PRN PRN Reason: Anxiety Magnesium Hydroxide (Magnesium Hydroxide 2,400 Mg/30 Ml Cup) 7,200 mg PO Q2D PRN PRN Reason: Constipation Melatonin (Melatonin 3 Mg Tablet) 3 mg PO HS@2100 [facility] Last Admin: 08/20/24 21:19 Dose: 3 mg Multivitamins (Multivitamins, Thera 1 Each Tab) 1 each PO DAILY@1700 [facility] Last Admin: 08/20/24 15:57 Dose: 1 each Naloxone HCl (Naloxone 0.4 Mg/Ml 1 Ml Vial) 0.2 mg IV Q2M PRN PRN Reason: Opioid Reversal Niacin (Niacin Tr 500 Mg Caplet) 500 mg PO BID@0800,1700 [facility] Last Admin: 08/21/24 12:09 Dose: Not Given Ondansetron HCl (Ondansetron 4 Mg/2 Ml Vial) 4 mg IVP Q8HR PRN PRN Reason: Nausea And Vomiting Last Admin: 08/19/24 04:59 Dose: 4 mg Pantoprazole Sodium (Pantoprazole 40 Mg Tablet) 40 mg PO DAILY@1700 [facility] Last Admin: 08/20/24 15:57 Dose: 40 mg Polyethylene Glycol (Polyethylene Glycol 3350 17 Gm Powd.Pack) 17 gm PO Q2D@0800 [facility] Last Admin: 08/20/24 15:57 Dose: 17 gm Silver Sulfadiazine (Silver Sulfadiazine 1% Cream 25 Gm Tube) 1 applic TOPICAL BID [facility] Last Admin: 08/21/24 12:18 Dose: 1 applic Sodium Biphosphate/Sodium Phosphate (Na Phos,M-B/Na Phos,Di-Ba 133 Ml Enema) 133 ml RECTAL DAILY PRN PRN Reason: Constipation Tamsulosin HCl (Tamsulosin 0.4 Mg Cap.Er.24h) 0.4 mg PO HS@2100 [facility] Last Admin: 08/20/24 21:19 Dose: 0.4 mg Tramadol HCl (Tramadol 50 Mg Tab) 50 mg PO Q6H PRN PRN Reason: Moderate Pain (Scale 4 to 6) Past medical history to include: Hypertension, hyperlipidemia, BPH, moderate cognitive impairment from prior stroke, GERD, right-sided weakness from prior stroke, dysarthria, chronic medical debility using a wheelchair, Harris's esophagus Social history: . smoked for about 35 years, cigars. Stop smoking about 24 years ago. Uses a wheelchair -at [facility] PHYSICAL EXAMINATION: VITAL SIGNS: 1.9, 62, 16, 112 x 60, 98% 3 L GENERAL: Reclining in bed, awake comfortable EYES: Pupils equal. Conjunctiva normal. HEENT: External appearance of nose and ears normal, oral cavity-dry mucous NECK: JVD not raised; masses not palpable. HEART: First and second heart sounds are normal; no edema. LUNGS: Respiratory rate normal decreased breath sound. ABDOMEN: Soft, nontender, liver spleen not palpable, no masses palpable. PSYCH: Answering simple questions MUSCULOSKELETAL:No Clubbing/cyanosis;muscles-grossly intact. Evidence of OA. Loss of muscle mass and subcutaneous fat. Prominent bones NEUROLOGICAL: . dysarthria. Right arm weakness with hand contracture. Mild right leg weakness. INVESTIGATIONS, reviewed in the clinical context: August 21: White count 8.3 hemoglobin 9.9 potassium 3.2 creatinine 0.82 August 20: Sodium 147 creatinine 0.9 August 19: White count 18.4 hemoglobin 13 potassium 3.5 creatinine 0.75 August 18: White: 0.4 hemoglobin 12.6 potassium 3.5 creatinine 0.79 August 17: White count 14.8 hemoglobin 12.6 potassium 3.4 creatinine 0.78 procalcitonin 0.38 August 15, 2024: White count 22.2 hemoglobin 11.9 platelets 297 sodium 141 potassium 4.9 BUN 38 creatinine 1.04 Troponin I 0.046 UA: Trace protein Influenza type A, type B, RSV, COVID-19: Not detected EKG tracing personally reviewed by me-normal sinus rhythm. Nonspecific ST changes. Chest x-ray film personally reviewed by me-probable right base infiltrate Assessment and plan: -Right basal pneumonia suspect gram-negative organism:, With aspiration pneumonitis on August 19 IV ceftriaxone 2 g daily given initially. Started on IV Zosyn on August 19 -Acute hypoxic respiratory failure from aspiration pneumonia Initially requiring a Ventimask. Today down to 3 L -Acute large bowel obstruction with emesis. Patient has large fecaloma: Had responded well to soapsuds enemas this morning. For very large bowel movements. Being followed by Dr. Tomas. August 21: Digital disimpaction done by Dr. Tomas. Followed by sigmoidoscopy. Still a significant amount of stool. Postprocedure colonoscopy prep ordered. For further clearing out. -Acute metabolic encephalopathy with infection/pneumonia on presentation: Much improved - severe cognitive impairment from advanced dementia - Harris's esophagus PPI Essential Hypertension -Amlodipine -Hyperlipidemia Lipitor -Moderate protein calorie malnutrition loss of muscle mass subcutaneous fat. Albumin 3.2 Compact Ensure 1 can 3 times daily GERD -PPI BPH -Flomax -Right-sided paresis with right arm contracture with right arm weakness more than the Márquez from prior stroke and chronic dysarthria -Positive troponin. Probably from hemodynamic mismatch in the setting of infection. -DO NOT RESUSCITATE, discussed with August 18, 2024 Continue colonoscopy bowel prep for further cleaning of the bowel. 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
[2024-08-21] MEDS: POTASSIUM CHLORIDE ER 20 MEQ TAB.ER PO STA (16:38)
--- NOTE | 2024-08-21 18:33 | P.PN ---
Subjective Progress Note Date: 08/21/24 Patient is an 88-year-old male apparently sent in from his ECF back on 08/15/2024 for fevers and possible pneumonia. Patient has past medical history significant for CVA/TIA with right-sided paralysis, right-sided contractures, carotid artery stenosis, hyperlipidemia, hypertension, among other things. Pulmonary consult was placed last night early this morning for potential aspiration. Patient himself is unable to provide any reliable information. Apparently, earlier this morning patient had an episode of vomiting, possibly fecal content per the nurse. Subsequently, developed some respiratory distress, placed on a 15 L nonrebreather. Follow-up chest x-ray showing bibasilar infiltrates. Abdominal x-ray showing air-filled dilated loops of the large and small bowel. CBC: WBC count 18.4, hemoglobin 13, hematocrit 42.3, platelets 242. CMP unremarkable, electrolytes WDL, creatinine 0.75, glucose 121. LFTs not elevated. Viral screen on admission negative for influenza, RSV, COVID. Urinalysis unremarkable for infection. Patient currently being evaluated on the cardiac stepdown unit. He is lethargic, tachypneic, has a congested and weak cough, trouble clearing secretions. On a 15 L nonrebreather, SpO2 reading 98%. Abdomen is firm and tender to palpation. 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 Patient has a DO NOT RESUSCITATE/DO NOT INTUBATE status. On today's evaluation of 08/20/2024, the patient is resting comfortably in bed. No significant respiratory distress. Afebrile. Remains on 3 L of oxygen by nasal cannula with pulse ox of 97%. Noted general surgery is on the case and the patient has significant fecal impaction and large rectal fecaloma. The patient is receiving soapsuds enemas and the patient already received 2 of those enemas with good results. The patient is n.p.o. after midnight and the patient is going to undergo a sigmoidoscopy tomorrow. No abdominal pain. No nausea or emesis. Sodium is at 147, BUN 33 with a catheter 0.9. Procalcitonin level is at 0.36. Remains on IV Zosyn. Rest of the medication remains unchanged. Tana ins on Lovenox for DVT prophylaxis. Currently on lactated Ringer at rate of 50 cc an hour the patient will be switched to D5 water. On 08/21/2024, the patient is being seen for a follow-up. The patient is resting comfortably in bed and the patient denies having any specific complaints. On today's evaluation, the patient is on oxygen and he is currently on 3 L with a pulse ox of 99%. Afebrile. Hemodynamically stable. Normotensive for now. Abdomen is nondistended. The patient underwent a sigmoidoscopy today by general surgery. The patient also underwent digital disimpaction. The sigmoidoscope was then passed through the needle and into the sigmoid colon. Large amount of stool was seen. Manual disimpaction was done and the patient was transferred back to the medical floor. The white cell count is at 8.3 with a hemoglobin 9.9 and a platelet count of 214. BUN is 21 with a creatinine of 0.8. Sodium levels at 140. The patient continues to be on Dulcolax and milk of mag. He is also receiving MiraLAX 17 g on a daily basis. Rest of the outpatient medications remain unchanged. Remains on IV Zosyn. Objective - Vital Signs Vital signs: Vital Signs Temp 98.2 F 08/21/24 08:00 Pulse 65 08/21/24 08:00 Resp 16 08/21/24 08:00 BP 90/62 08/21/24 08:00 Pulse Ox 95 08/21/24 08:00 FiO2 Intake & Output 08/20/24 08/21/24 08/21/24 18:59 06:59 18:59 Weight 54 kg Other: Voiding Method Diaper Diaper Diaper Incontinent Incontinent Incontinent # Voids 1 0 # Bowel Movements 3 - Exam GENERAL EXAM: Lethargic, 88-year-old male, right-sided neglect, on a 3 L of oxygen by nasal cannula HEAD: Normocephalic and atraumatic EYES: Normal reaction of pupils, equal size. NOSE: Clear with pink turbinates. THROAT: No erythema or exudates. NECK: No masses, no JVD. CHEST: No chest wall deformity. LUNGS: Equal air entry with diffuse rhonchi bilaterally and crackles heard at the bases. No significant respiratory distress and the patient's breathing is nonlabored on today's evaluation. CVS: S1 and S2 normal with no audible murmur, regular rhythm. No extra heart sounds ABDOMEN: Abdomen is firm and distended, a hypoactive bowel sounds, tender to palpation, no hepatosplenomegaly. SPINE: No scoliosis or deformity SKIN: No rashes CENTRAL NERVOUS SYSTEM: Lethargic, does not follow commands or accurately answer questioning, right-sided hemiplegia and contractures EXTREMITIES: There is no peripheral edema, clubbing, or cyanosis. Peripheral pulses are intact. - Labs CBC & Chem 7: 08/21/24 08:04 08/21/24 08:04 Labs: Abnormal Lab Results - Last 24 Hours (Table) 08/21/24 08/21/24 Range/Units 08:04 08:04 RBC 3.28 L (4.30-5.90) m/uL Hgb 9.9 L D (13.0-17.5) gm/dL Hct 31.3 L (39.0-53.0) % Lymphocytes # 0.9 L (1.0-4.8) k/uL Potassium 3.2 L (3.5-5.1) mmol/L Chloride 108 H (98-107) mmol/L BUN 21 H (9-20) mg/dL Glucose 108 H (74-99) mg/dL Assessment and Plan Assessment: Acute hypoxic respiratory failure, questionable aspiration. Nevertheless, the patient's shortness of breath was essentially attributed to clinical infection and significant abdominal distention with pulmonary restriction. Currently stable on 3 L of oxygen nasal cannula Acute hypoxemic respiratory failure, currently on a 3 L of oxygen nasal cannula Abdominal pain, secondary to extensive fecaloma and fecal impaction. The patient underwent manual disimpaction and sigmoidoscopy. Patient is also receiving a combination of laxatives including milk of mag, Dulcolax and MiraLAX. The abdomen is soft Acute leukocytosis, improving History of CVA with residual right-sided deficits Hypertension History of hyperlipidemia ECF resident Plan: Patient currently on 3 L of O2 nasal cannula Patient had a witnessed aspiration event, possible fecal like content per staff nurse. Overall respiratory status is stable. Oxygenation remained stable and the patient remains on IV Zosyn. Continue empiric antibiotics for probable aspiration pneumonia CAT scan of the abdomen and pelvis that was done on this patient. The patient has large colonic stool burden with large rectal fecaloma with some mild surrounding inflammatory changes that is concerning for stercoral colitis. The patient also has a stable infrarenal abdominal aortic aneurysm measuring 3.1 cm in size. Some atelectatic changes in the lung bases right more than left. Sigmoidoscopy was performed general surgery is on the case Continue IV Zosyn Switch the patient's IV fluids to D5 water at rate of 75 cc an hour Overall condition is guarded, secondary to above mentioned comorbidities Patient carries a DO NOT RESUSCITATE/DO NOT INTUBATE status We will continue to follow
[2024-08-22 07:49] LABS: African American GFR (CKD) >90 (>60 ml/min/1.73 sqM); Anion Gap 7 mmol/L; Blood Urea Nitrogen 13 mg/dL (9-20); Calcium 8.6 mg/dL (8.4-10.2); Carbon Dioxide 28 mmol/L (22-30); Chloride 104 mmol/L (98-107); Glucose 78 mg/dL (74-99); Non-African American GFR(CKD) 84 (>60 ml/min/1.73 sqM); Sodium 139 mmol/L (137-145)
[2024-08-22 10:35] VITALS: BMI 19.4
--- NOTE | 2024-08-22 12:15 | P.PN ---
Subjective Progress Note Date: 08/22/24 SURGICAL PROGRESS NOTE CHIEF COMPLAINT: Aspiration pneumonia HISTORY OF PRESENT ILLNESS: Fecal impaction status post sigmoidoscopy with disimpaction. Patient has had no further bowel movements. Per nursing staff she he has not been drinking the GoLytely. They will try to get him to drink it again today. Afebrile. WBC is down from 18-8.3 PHYSICAL EXAM: VITAL SIGNS: Reviewed. GENERAL: in no acute distress. ABDOMEN: Soft. Nondistended. Nontender. NEUROLOGIC: Awake and alert ASSESSMENT: 1. Fecal impaction status post sigmoidoscopy with disimpaction 2. Large rectal fecaloma and colonic stool burden 3. 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 Signing provider agrees with the documented findings, assessment, and plan of care. Objective - Vital Signs Vital signs: Vital Signs Temp 97.4 F L 08/22/24 11:02 Pulse 109 H 08/22/24 11:02 Resp 16 08/22/24 11:02 BP 113/64 08/22/24 11:02 Pulse Ox 92 L 08/22/24 11:02 FiO2 Intake & Output 08/21/24 08/22/24 08/22/24 18:59 06:59 18:59 Intake Total 290 Balance 290 Weight 54 kg 53 kg 53 kg Intake: IV 50 Oral 240 Other: Voiding Method Diaper Diaper Diaper Incontinent Incontinent Incontinent # Voids 1 1 1 - Labs CBC & Chem 7: 08/21/24 08:04 08/22/24 06:16 Labs: Microbiology - Last 24 Hours (Table) 08/15/24 23:05 Blood Culture - Final Blood
--- NOTE | 2024-08-22 13:34 | P.PN ---
Progress Note - Text Progress Note Date: 08/22/24 Chief Complaint: Fever 88-year-old male with a past medical history of hypertension, hyperlipidemia, history of CVA with right-sided paralysis and speech problems - wheelchair and dementia, anxiety and prior history of smoking and also right carotid endarterectomy resident of [facility]. Patient himself not able to give much of history. Keeps repeating things. As per the EMS run sheet staff informed patient had a recent procedure done to his mouth. Has been refusing all medications since then. Noticed to have a fever. Family decided to send him therefore to the ER. August 17: Admitted with right basal pneumonia. On IV ceftriaxone. More awake today. Answering some simple questions. Did not eat breakfast but had about 50% of lunch. Spoke with the at the bedside. August 18: Admitted with pneumonia. IV ceftriaxone. at the bedside. Fe eding lunch. Patient more awake and a bit more talkative today. Though per the still weak and not back to his baseline. 95% on 2 L. Slightly tachycardic. Afebrile. Discussed with the . Even though patient was full code as of 10 years ago now she wants the patient to be a DO NOT RESUSCITATE. In fact she supposed to meet up with the social services from [facility] to change that. Will change patient's CODE STATUS. August 19: Around 3 AM this morning patient started having coffee-ground emesis. Short of breath. Critical care was consulted. Chest x-ray and abdominal x-ray showed evidence of bowel obstruction. CT scan done this afternoon shows moderate to large colonic stool burden with large rectal fecaloma. Infrarenal abdominal aortic aneurysm 3.1 cm. Basal lung consolida tion. Patient a bit tired. General surgery Dr. Tomas was consulted. NG tube being ordered by general surgery. Will get his medications through that. August 20: Patient never received NG tube per surgery. Patient had soapsuds enema last night with no results. 2 soapsuds enemas this morning had a large amount of stool. Also further during the day. X-ray later today shows nonspecific gas pattern. Abdomen soft. No further vomiting. Dr. Tomas's schedule patient for a sigmoidoscopy tomorrow. From a Ventimask yesterday patient down to 3 L today. Continue IV fluids. N.p.o. after midnight. August 21: Patient had a lot of bowel movements yesterday. Today underwent sigmoidoscopy. Prior to that digital disimpaction was done by Dr Tomas. Sigmoidoscopy showed significant amount of stool. Postprocedure colonoscopy prep was ordered for further clearing out. Discussed with at the bedside. August 22: Patient being given GoLytely by surgery. To further cleansing of the bowel. On full liquid diet. at the bedside. Patient otherwise appears comfortable. Wanting food. Will switch over from IV Zosyn to oral Augmentin. Possible DC tomorrow tomorrow Active Medications Acetaminophen (Acetaminophen Tab 325 Mg Tab) 650 mg PO Q4H PRN PRN Reason: Fever and/ or Mild Pain Hydrocodone Bitart/Acetaminophen (Hydrocodone/Apap 7.5-325mg 1 Each Tab) 1 each PO Q6H PRN PRN Reason: Severe Pain (Scale 7 to 10) Albuterol/Ipratropium (Ipratropium-Albuterol 3 Ml Neb) 3 ml INHALATION RT-Q6H PRN PRN Reason: COPD Amlodipine Besylate (Amlodipine 5 Mg Tab) 5 mg PO DAILY@0800 [facility], [facility] Last Admin: 08/22/24 09:56 Dose: 5 mg Atorvastatin Calcium (Atorvastatin 10 Mg Tab) 10 mg PO HS@2100 [facility], [facility]1983 Last Admin: 08/21/24 19:47 Dose: 10 mg Atropine Sulfate (Atropine Ophth Soln 1% 5ml Btl) 2 drops SUBLINGUAL BID@0800,1700 [facility], [facility]1983 Last Admin: 08/22/24 09:55 Dose: 2 drops Bisacodyl (Bisacodyl 10 Mg Supp) 10 mg RECTAL DAILY PRN PRN Reason: Constipation Calcium Carbonate/Glycine (Calcium Carbonate 500 Mg Chewable) 1,000 mg PO Q4HR PRN PRN Reason: Dyspepsia Chlorhexidine Gluconate (Chlorhexidine Gluconate 15 Ml Cup) 15 ml MUCOUS MEM BID@0800,1700 [facility], [facility] Last Admin: 08/22/24 09:56 Dose: 15 ml Cholecalciferol (Cholecalciferol 125 Mcg (5000 Iu) Tablet) 125 mcg PO DAILY@1700 [facility] Last Admin: 08/21/24 16:39 Dose: 125 mcg Enoxaparin Sodium (Enoxaparin 40 Mg/0.4 Ml Syringe) 40 mg SQ DAILY [facility] Last Admin: 08/22/24 09:55 Dose: 40 mg Guaifenesin (Guaifenesin Syrup 100mg/5ml 200 Mg/10 Ml Cup) 200 mg PO Q4H PRN PRN Reason: Cough Piperacillin Sod/Tazobactam (Sod 3.375 gm/ Sodium Chloride) 100 mls @ 25 mls/hr IVPB Q8H [facility], [facility]; Protocol Last Admin: 08/22/24 09:58 Dose: 25 mls/hr Dextrose/Water (Dextrose 5%-Water Iv Soln) 1,000 mls @ 75 mls/hr IV .[id number] [facility], [facility] Last Admin: 08/22/24 09:57 Dose: 75 mls/hr Lorazepam (Lorazepam 2 Mg/Ml Inj) 0.5 mg IV Q6HR PRN PRN Reason: Anxiety Magnesium Hydroxide (Magnesium Hydroxide 2,400 Mg/30 Ml Cup) 7,200 mg PO Q2D PRN PRN Reason: Constipation Melatonin (Melatonin 3 Mg Tablet) 3 mg PO HS@2100 [facility] Last Admin: 08/21/24 19:47 Dose: 3 mg Multivitamins (Multivitamins, Thera 1 Each Tab) 1 each PO DAILY@1700 [facility] Last Admin: 08/21/24 16:38 Dose: 1 each Naloxone HCl (Naloxone 0.4 Mg/Ml 1 Ml Vial) 0.2 mg IV Q2M PRN PRN Reason: Opioid Reversal Niacin (Niacin Tr 500 Mg Caplet) 500 mg PO BID@0800,1700 [facility] Last Admin: 08/22/24 09:56 Dose: 500 mg Ondansetron HCl (Ondansetron 4 Mg/2 Ml Vial) 4 mg IVP Q8HR PRN PRN Reason: Nausea And Vomiting Last Admin: 08/19/24 04:59 Dose: 4 mg Pantoprazole Sodium (Pantoprazole 40 Mg Tablet) 40 mg PO DAILY@1700 [facility] Last Admin: 08/21/24 16:50 Dose: Not Given Polyethylene Glycol (Polyethylene Glycol 3350 17 Gm Powd.Pack) 17 gm PO Q2D@0800 [facility] Last Admin: 08/22/24 09:56 Dose: 17 gm Silver Sulfadiazine (Silver Sulfadiazine 1% Cream 25 Gm Tube) 1 applic TOPICAL BID [facility] Last Admin: 08/22/24 09:55 Dose: 1 applic Sodium Biphosphate/Sodium Phosphate (Na Phos,M-B/Na Phos,Di-Ba 133 Ml Enema) 133 ml RECTAL DAILY PRN PRN Reason: Constipation Tamsulosin HCl (Tamsulosin 0.4 Mg Cap.Er.24h) 0.4 mg PO HS@2100 [facility] Last Admin: 08/21/24 19:47 Dose: 0.4 mg Tramadol HCl (Tramadol 50 Mg Tab) 50 mg PO Q6H PRN PRN Reason: Moderate Pain (Scale 4 to 6) Past medical history to include: Hypertension, hyperlipidemia, BPH, moderate cognitive impairment from prior stroke, GERD, right-sided weakness from prior stroke, dysarthria, chronic medical debility using a wheelchair, Harris's esophagus Social history: . smoked for about 35 years, cigars. Stop smoking about 24 years ago. Uses a wheelchair -at [facility] PHYSICAL EXAMINATION: VITAL SIGNS: 97.4, 109, 16, 113 x 64, 92% 3 L GENERAL: Reclining in bed, awake comfortable EYES: Pupils equal. Conjunctiva normal. HEENT: External appearance of nose and ears normal, oral cavity-dry mucous NECK: JVD not raised; masses not palpable. HEART: First and second heart sounds are normal; no edema. LUNGS: Respiratory rate normal decreased breath sound. ABDOMEN: Soft, nontender, liver spleen not palpable, no masses palpable. PSYCH: Answering simple questions MUSCULOSKELETAL:No Clubbing/cyanosis;muscles-grossly intact. Evidence of OA. Loss of muscle mass and subcutaneous fat. Prominent bones NEUROLOGICAL: . dysarthria. Right arm weakness with hand contracture. Mild right leg weakness. INVESTIGATIONS, reviewed in the clinical context: August 22: Potassium 4 creatinine 0.72 August 21: White count 8.3 hemoglobin 9.9 potassium 3.2 creatinine 0.82 August 20: Sodium 147 creatinine 0.9 August 19: White count 18.4 hemoglobin 13 potassium 3.5 creatinine 0.75 August 18: White: 0.4 hemoglobin 12.6 potassium 3.5 creatinine 0.79 August 17: White count 14.8 hemoglobin 12.6 potassium 3.4 creatinine 0.78 procalcitonin 0.38 August 15, 2024: White count 22.2 hemoglobin 11.9 platelets 297 sodium 141 potassium 4.9 BUN 38 creatinine 1.04 Troponin I 0.046 UA: Trace protein Influenza type A, type B, RSV, COVID-19: Not detected EKG tracing personally reviewed by me-normal sinus rhythm. Nonspecific ST changes. Chest x-ray film personally reviewed by me-probable right base infiltrate Assessment and plan: -Right basal pneumonia suspect gram-negative organism:, With aspiration pneumonitis on August 19 IV ceftriaxone 2 g daily given initially. Started on IV Zosyn on August 19. Switch over to oral Augmentin -Acute hypoxic respiratory failure from aspiration pneumonia Initially requiring a Ventimask. Today down to 3 L -Acute large bowel obstruction with emesis. Patient has large fecaloma: Had responded well to soapsuds enemas this morning. For very large bowel movements. Being followed by Dr. Tomas. August 21: Digital disimpaction done by Dr. Tomas. Followed by sigmoidoscopy. Still a significant amount of stool. Postprocedure colonoscopy prep ordered. For further clearing out. GoLytely for further cleansing being given today -Acute metabolic encephalopathy with infection/pneumonia on presentation: Much improved - severe cognitive impairment from advanced dementia - Harris's esophagus PPI Essential Hypertension -Amlodipine -Hyperlipidemia Lipitor -Moderate protein calorie malnutrition loss of muscle mass subcutaneous fat. Albumin 3.2 Compact Ensure 1 can 3 times daily GERD -PPI BPH -Flomax -Right-sided paresis with right arm contracture with right arm weakness more than the Márquez from prior stroke and chronic dysarthria -Positive troponin. Probably from hemodynamic mismatch in the setting of infection. 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
--- NOTE | 2024-08-22 15:30 | P.PN ---
Subjective Progress Note Date: 08/22/24 Patient is an 88-year-old male apparently sent in from his ECF back on 08/15/2024 for fevers and possible pneumonia. Patient has past medical history significant for CVA/TIA with right-sided paralysis, right-sided contractures, carotid artery stenosis, hyperlipidemia, hypertension, among other things. Pulmonary consult was placed last night early this morning for potential aspiration. Patient himself is unable to provide any reliable information. Apparently, earlier this morning patient had an episode of vomiting, possibly fecal content per the nurse. Subsequently, developed some respiratory distress, placed on a 15 L nonrebreather. Follow-up chest x-ray showing bibasilar infiltrates. Abdominal x-ray showing air-filled dilated loops of the large and small bowel. CBC: WBC count 18.4, hemoglobin 13, hematocrit 42.3, platelets 242. CMP unremarkable, electrolytes WDL, creatinine 0.75, glucose 121. LFTs not elevated. Viral screen on admission negative for influenza, RSV, COVID. Urinalysis unremarkable for infection. Patient currently being evaluated on the cardiac stepdown unit. He is lethargic, tachypneic, has a congested and weak cough, trouble clearing secretions. On a 15 L nonrebreather, SpO2 reading 98%. Abdomen is firm and tender to palpation. 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 Patient has a DO NOT RESUSCITATE/DO NOT INTUBATE status. On today's evaluation of 08/20/2024, the patient is resting comfortably in bed. No significant respiratory distress. Afebrile. Remains on 3 L of oxygen by nasal cannula with pulse ox of 97%. Noted general surgery is on the case and the patient has significant fecal impaction and large rectal fecaloma. The patient is receiving soapsuds enemas and the patient already received 2 of those enemas with good results. The patient is n.p.o. after midnight and the patient is going to undergo a sigmoidoscopy tomorrow. No abdominal pain. No nausea or emesis. Sodium is at 147, BUN 33 with a catheter 0.9. Procalcitonin level is at 0.36. Remains on IV Zosyn. Rest of the medication remains unchanged. Tana ins on Lovenox for DVT prophylaxis. Currently on lactated Ringer at rate of 50 cc an hour the patient will be switched to D5 water. On 08/21/2024, the patient is being seen for a follow-up. The patient is resting comfortably in bed and the patient denies having any specific complaints. On today's evaluation, the patient is on oxygen and he is currently on 3 L with a pulse ox of 99%. Afebrile. Hemodynamically stable. Normotensive for now. Abdomen is nondistended. The patient underwent a sigmoidoscopy today by general surgery. The patient also underwent digital disimpaction. The sigmoidoscope was then passed through the needle and into the sigmoid colon. Large amount of stool was seen. Manual disimpaction was done and the patient was transferred back to the medical floor. The white cell count is at 8.3 with a hemoglobin 9.9 and a platelet count of 214. BUN is 21 with a creatinine of 0.8. Sodium levels at 140. The patient continues to be on Dulcolax and milk of mag. He is also receiving MiraLAX 17 g on a daily basis. Rest of the outpatient medications remain unchanged. Remains on IV Zosyn. On 08/22/2024, the patient is resting comfortably in bed. No significant res piratory distress. The patient remains on oxygen at 3 L/min nasal cannula with a pulse ox of 92%. The patient underwent a c sigmoidoscopy yesterday. The patient is currently on GoLytely. For bowel cleansing. He remains on full liquid diet. The white cell count is currently at 8.3, from yesterday, and hemoglobin is at 9.9. Sodium is at 139, BUN 13 with a creatinine of 0.7. Remains on antibiotics and the patient has been switched to Augmentin 875 mg 1 tablet twice a day. Remains on Lovenox for DVT prophylaxis. Remains on MiraLAX, and milk of mag. Objective - Vital Signs Vital signs: Vital Signs Temp 97.4 F L 08/22/24 11:02 Pulse 109 H 08/22/24 11:02 Resp 16 08/22/24 11:02 BP 113/64 08/22/24 11:02 Pulse Ox 92 L 08/22/24 11:02 FiO2 Intake & Output 08/21/24 08/22/24 08/22/24 18:59 06:59 18:59 Intake Total 290 Balance 290 Weight 54 kg 53 kg 53 kg Intake: IV 50 Oral 240 Other: Voiding Method Diaper Diaper Diaper Incontinent Incontinent Incontinent # Voids 1 1 1 - Exam GENERAL EXAM: Lethargic, 88-year-old male, right-sided neglect, on a 3 L of oxygen by nasal cannula HEAD: Normocephalic and atraumatic EYES: Normal reaction of pupils, equal size. NOSE: Clear with pink turbinates. THROAT: No erythema or exudates. NECK: No masses, no JVD. CHEST: No chest wall deformity. LUNGS: Equal air entry with diffuse rhonchi bilaterally and crackles heard at the bases. No significant respiratory distress and the patient's breathing is nonlabored on today's evaluation. CVS: S1 and S2 normal with no audible murmur, regular rhythm. No extra heart sounds ABDOMEN: Abdomen is firm and distended, a hypoactive bowel sounds, tender to palpation, no hepatosplenomegaly. SPINE: No scoliosis or deformity SKIN: No rashes CENTRAL NERVOUS SYSTEM: Lethargic, does not follow commands or accurately answer questioning, right-sided hemiplegia and contractures EXTREMITIES: There is no peripheral edema, clubbing, or cyanosis. Peripheral pulses are intact. - Labs CBC & Chem 7: 08/21/24 08:04 08/22/24 06:16 Labs: Microbiology - Last 24 Hours (Table) 08/15/24 23:05 Blood Culture - Final Blood Assessment and Plan Assessment: Acute hypoxic respiratory failure, questionable aspiration. Nevertheless, the patient's shortness of breath was essentially attributed to clinical infection and significant abdominal distention with pulmonary restriction. Currently stable on 3 L of oxygen nasal cannula Acute hypoxemic respiratory failure, currently on a 3 L of oxygen nasal cannula Abdominal pain, secondary to extensive fecaloma and fecal impaction. The patient underwent manual disimpaction and sigmoidoscopy. Patient is also receiving a combination of laxatives including milk of mag, Dulcolax and MiraLAX. The abdomen is soft. Sigmoidoscopy was done and the patient is currently on a combination of MiraLAX, milk of mag and the patient is receiving GoLytely. Acute leukocytosis, improving History of CVA with residual right-sided deficits Hypertension History of hyperlipidemia ECF resident Plan: Patient currently on 3 L of O2 nasal cannula Patient had a witnessed aspiration event, possible fecal like content per staff nurse. Overall respiratory status is stable. Oxygenation remained stable and the patient remains on off IV Zosyn and patient was started on Augmentin Continue empiric antibiotics for probable aspiration pneumonia CAT scan of the abdomen and pelvis that was done on this patient. The patient has large colonic stool burden with large rectal fecaloma with some mild surrounding inflammatory changes that is concerning for stercoral colitis. The patient also has a stable infrarenal abdominal aortic aneurysm measuring 3.1 cm in size. Some atelectatic changes in the lung bases right more than left. Sigmoidoscopy was performed yesterday and the patient is currently receiving GoLytely for bowel cleansing general surgery is on the case White cell count is improving Clear liquid diet Switch the patient's IV fluids to D5 water at rate of 75 cc an hour Overall condition is guarded, secondary to above mentioned comorbidities Patient carries a DO NOT RESUSCITATE/DO NOT INTUBATE status We will continue to follow Time with Patient: Greater than 30
[2024-08-22] MEDS: AMOXIC-POT CLAV 875-125MG 1 EACH TAB PO SCH (20:29)
--- NOTE | 2024-08-23 09:52 | P.PN ---
Subjective Progress Note Date: 08/23/24 Principal diagnosis: Fecal impaction Patient laying in bed comfortably. Tolerating full liquid diet. No vomiting. Denies abdominal pain. Had some stools overnight per the nursing staff. Objective - Vital Signs Vital signs: Vital Signs Temp 97.0 F L 08/23/24 07:44 Pulse 66 08/23/24 07:44 Resp 18 08/23/24 07:44 BP 119/69 08/23/24 07:44 Pulse Ox 95 08/23/24 07:44 FiO2 Intake & Output 08/22/24 08/23/24 08/23/24 18:59 06:59 18:59 Output Total 600 Balance -600 Weight 53 kg 53 kg Output: Urine 600 Other: Voiding Method Diaper Diaper Incontinent Incontinent # Voids 1 1 # Bowel Movements 2 - Exam Abdomen: Soft, nontender, nondistended - Labs CBC & Chem 7: 08/21/24 08:04 08/22/24 06:16 Assessment and Plan (1) Impaction of colon Narrative/Plan: 88-year-old male with recent fecal impaction. Continue finishing course of [employer]. Has about one third of the container left. Advance to regular diet. Will follow. Current Visit: Yes Status: Acute Code(s): K56.49 - OTHER IMPACTION OF INTESTINE SNOMED Code(s): 45320188
[2024-08-23 13:23] VITALS: BP 122/70; PULSE 52; RESP 18; TEMP 97.7
--- NOTE | 2024-08-23 14:09 | P.PN ---
Subjective Progress Note Date: 08/23/24 Patient is an 88-year-old male apparently sent in from his ECF back on 08/15/2024 for fevers and possible pneumonia. Patient has past medical history significant for CVA/TIA with right-sided paralysis, right-sided contractures, carotid artery stenosis, hyperlipidemia, hypertension, among other things. Pulmonary consult was placed last night early this morning for potential aspiration. Patient himself is unable to provide any reliable information. Apparently, earlier this morning patient had an episode of vomiting, possibly fecal content per the nurse. Subsequently, developed some respiratory distress, placed on a 15 L nonrebreather. Follow-up chest x-ray showing bibasilar infiltrates. Abdominal x-ray showing air-filled dilated loops of the large and small bowel. CBC: WBC count 18.4, hemoglobin 13, hematocrit 42.3, platelets 242. CMP unremarkable, electrolytes WDL, creatinine 0.75, glucose 121. LFTs not elevated. Viral screen on admission negative for influenza, RSV, COVID. Urinalysis unremarkable for infection. Patient currently being evaluated on the cardiac stepdown unit. He is lethargic, tachypneic, has a congested and weak cough, trouble clearing secretions. On a 15 L nonrebreather, SpO2 reading 98%. Abdomen is firm and tender to palpation. 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 Patient has a DO NOT RESUSCITATE/DO NOT INTUBATE status. On today's evaluation of 08/20/2024, the patient is resting comfortably in bed. No significant respiratory distress. Afebrile. Remains on 3 L of oxygen by nasal cannula with pulse ox of 97%. Noted general surgery is on the case and the patient has significant fecal impaction and large rectal fecaloma. The patient is receiving soapsuds enemas and the patient already received 2 of those enemas with good results. The patient is n.p.o. after midnight and the patient is going to undergo a sigmoidoscopy tomorrow. No abdominal pain. No nausea or emesis. Sodium is at 147, BUN 33 with a catheter 0.9. Procalcitonin level is at 0.36. Remains on IV Zosyn. Rest of the medication remains unchanged. Tana ins on Lovenox for DVT prophylaxis. Currently on lactated Ringer at rate of 50 cc an hour the patient will be switched to D5 water. On 08/21/2024, the patient is being seen for a follow-up. The patient is resting comfortably in bed and the patient denies having any specific complaints. On today's evaluation, the patient is on oxygen and he is currently on 3 L with a pulse ox of 99%. Afebrile. Hemodynamically stable. Normotensive for now. Abdomen is nondistended. The patient underwent a sigmoidoscopy today by general surgery. The patient also underwent digital disimpaction. The sigmoidoscope was then passed through the needle and into the sigmoid colon. Large amount of stool was seen. Manual disimpaction was done and the patient was transferred back to the medical floor. The white cell count is at 8.3 with a hemoglobin 9.9 and a platelet count of 214. BUN is 21 with a creatinine of 0.8. Sodium levels at 140. The patient continues to be on Dulcolax and milk of mag. He is also receiving MiraLAX 17 g on a daily basis. Rest of the outpatient medications remain unchanged. Remains on IV Zosyn. On 08/22/2024, the patient is resting comfortably in bed. No significant res piratory distress. The patient remains on oxygen at 3 L/min nasal cannula with a pulse ox of 92%. The patient underwent a c sigmoidoscopy yesterday. The patient is currently on GoLytely. For bowel cleansing. He remains on full liquid diet. The white cell count is currently at 8.3, from yesterday, and hemoglobin is at 9.9. Sodium is at 139, BUN 13 with a creatinine of 0.7. Remains on antibiotics and the patient has been switched to Augmentin 875 mg 1 tablet twice a day. Remains on Lovenox for DVT prophylaxis. Remains on MiraLAX, and milk of mag. On 08/23/2024, the patient is stooling extensively. He has produced large amounts of bowel movements. Abdomen is deflated. No significant distention. No abdominal pain. No nausea or emesis. Respiratory status remains unchanged and stable and the patient is currently on 2 L of O2 nasal cannula. The patient remains on oral Augmentin. The patient is also taking a combination of MiraLAX, milk of mag and GoLytely. Procalcitonin level is at 0.15. General surgery is on the case. No significant respiratory difficulties. Objective - Vital Signs Vital signs: Vital Signs Temp 97.0 F L 08/23/24 07:44 Pulse 66 08/23/24 07:44 Resp 16 08/23/24 07:50 BP 119/69 08/23/24 07:44 Pulse Ox 95 08/23/24 07:44 FiO2 Intake & Output 08/22/24 08/23/24 08/23/24 18:59 06:59 18:59 Intake Total 250 Output Total 600 Balance -600 250 Weight 53 kg 53 kg Intake: Oral 250 Output: Urine 600 Other: Voiding Method Diaper Diaper Diaper Incontinent Incontinent Incontinent External Catheter # Voids 1 1 # Bowel Movements 2 - Exam GENERAL EXAM: Lethargic, 88-year-old male, right-sided neglect, on a 3 L of oxygen by nasal cannula HEAD: Normocephalic and atraumatic EYES: Normal reaction of pupils, equal size. NOSE: Clear with pink turbinates. THROAT: No erythema or exudates. NECK: No masses, no JVD. CHEST: No chest wall deformity. LUNGS: Equal air entry with diffuse rhonchi bilaterally and crackles heard at the bases. No significant respiratory distress and the patient's breathing is nonlabored on today's evaluation. CVS: S1 and S2 normal with no audible murmur, regular rhythm. No extra heart sounds ABDOMEN: Abdomen is firm and distended, a hypoactive bowel sounds, tender to palpation, no hepatosplenomegaly. SPINE: No scoliosis or deformity SKIN: No rashes CENTRAL NERVOUS SYSTEM: Lethargic, does not follow commands or accurately answer questioning, right-sided hemiplegia and contractures EXTREMITIES: There is no peripheral edema, clubbing, or cyanosis. Peripheral pulses are intact. - Labs CBC & Chem 7: 08/21/24 08:04 08/22/24 06:16 Assessment and Plan Assessment: Acute hypoxic respiratory failure, questionable aspiration. Nevertheless, the patient's shortness of breath was essentially attributed to clinical infection and significant abdominal distention with pulmonary restriction. Currently stable on 2 L of oxygen nasal cannula and abdominal distention has improved after the patient responded to medical treatment for constipation and the patient also underwent a sigmoidoscopy and the patient is stooling at this point. Acute hypoxemic respiratory failure, currently on a 2 L of oxygen nasal cannula Abdominal pain, secondary to extensive fecaloma and fecal impaction. The patient underwent manual disimpaction and sigmoidoscopy. Patient is also receiving a combination of laxatives including milk of mag, Dulcolax and MiraLAX. The abdomen is soft. Sigmoidoscopy was done and the patient is currently on a combination of MiraLAX, milk of mag and the patient is receiving GoLytely. Acute leukocytosis, improving History of CVA with residual right-sided deficits Hypertension History of hyperlipidemia ECF resident Plan: Patient currently on 2 L of O2 nasal cannula Patient had a witnessed aspiration event, possible fecal like content per staff nurse. Overall respiratory status is stable. Oxygenation remained stable and the patient remains on off IV Zosyn and patient was started on Augmentin Continue empiric antibiotics for probable aspiration pneumonia CAT scan of the abdomen and pelvis that was done on this patient. The patient has large colonic stool burden with large rectal fecaloma with some mild surrounding inflammatory changes that is concerning for stercoral colitis. The patient also has a stable infrarenal abdominal aortic aneurysm measuring 3.1 cm in size. Some atelectatic changes in the lung bases right more than left. Sigmoidoscopy was performed yesterday and the patient is currently receiving GoLytely for bowel cleansing general surgery is on the case White cell count is improving Clear liquid diet Advance diet as tolerated Overall condition is guarded, secondary to above mentioned comorbidities Patient carries a DO NOT RESUSCITATE/DO NOT INTUBATE status Time with Patient: Greater than 30
--- NOTE | 2024-08-23 14:11 | P.DS ---
Providers Date of admission: 08/16/24 00:19 Expected date of discharge: 08/23/24 Attending physician: Sidney Fortune Consults: 08/19/24 03:14 Consult Physician Stat Consulting Provider: Alyssia Baumann Consult Reason/Comments: possible aspiration/ hypoxia Do you want consulting provider notified?: Yes, Notify in am 08/19/24 09:48 Consult Physician Stat Consulting Provider: Yung Tomas Consult Reason/Comments: concerns for SBO Do you want consulting provider notified?: Yes Primary care physician: [facility] Course: Chief Complaint: Fever 88-year-old male with a past medical history of hypertension, hyperlipidemia, history of CVA with right-sided paralysis and speech problems - wheelchair and dementia, anxiety and prior history of smoking and also right carotid endarterectomy resident of [facility]. Patient himself not able to give much of history. Keeps repeating things. As per the EMS run sheet staff informed patient had a recent procedure done to his mouth. Has been refusing all medications since then. Noticed to have a fever. Family decided to send him therefore to the ER. August 17: Admitted with right basal pneumonia. On IV ceftriaxone. More awake today. Answering some simple questions. Did not eat breakfast but had about 50% of lunch. Spoke with the at the bedside. August 18: Admitted with pneumonia. IV ceftriaxone. at the bedside. Feeding lunch. Patient more awake and a bit more talkative today. Though per the still weak and not back to his baseline. 95% on 2 L. Slightly tachycardic. Afebrile. Discussed with the . Even though patient was full code as of 10 years ago now she wants the patient to be a DO NOT RESUSCITATE. In fact she supposed to meet up with the social media designer from [facility] to change that. Will change patient's CODE STATUS. August 19: Around 3 AM this morning patient started having coffee-ground emesis. Short of breath. Critical care was consulted. Chest x-ray and abdominal x-ray showed evidence of bowel obstruction. CT scan done this afternoon shows moderate to large colonic stool burden with large rectal fecaloma. Infrarenal abdominal aortic aneurysm 3.1 cm. Basal lung consolidation. Patient a bit tired. General surgery Dr. Tomas was consulted. NG tube being ordered by general surgery. Will get his medications through that. August 20: Patient never received NG tube per surgery. Patient had soapsuds enema last night with no results. 2 soapsuds enemas this morning had a large amount of stool. Also further during the day. X-ray later today shows nonspecific gas pattern. Abdomen soft. No further vomiting. Dr. Tomas's schedule patient for a sigmoidoscopy tomorrow. From a Ventimask yesterday patient down to 3 L today. Continue IV fluids. N.p.o. after midnight. August 21: Patient had a lot of bowel movements yesterday. Today underwent sigmoidoscopy. Prior to that digital disimpaction was done by Dr Tomas. Sigmoidoscopy showed significant amount of stool. Postprocedure colonoscopy prep was ordered for further clearing out. Discussed with at the bedside. August 22: Patient being given GoLytely by surgery. To further cleansing of the bowel. On full liquid diet. at the bedside. Patient otherwise appears comfortable. Wanting food. Will switch over from IV Zosyn to oral Augmentin. Possible DC tomorrow tomorrow August 23: Patient had further several bowel movements yesterday. Abdomen soft. Diet advanced. Procalcitonin 0.15. DC antibiotics. Past medical history to include: Hypertension, hyperlipidemia, BPH, moderate cognitive impairment from prior stroke, GERD, right-sided weakness from prior stroke, dysarthria, chronic medical debility using a wheelchair, Harris's esophagus Social history: . smoked for about 35 years, cigars. Stop smoking about 24 years ago. Uses a wheelchair -at [facility] PHYSICAL EXAMINATION: VITAL SIGNS: 97.7, 52, 18, 122 x 70, 91% 2 L GENERAL: Reclining in bed, awake comfortable EYES: Pupils equal. Conjunctiva normal. HEENT: External appearance of nose and ears normal, oral cavity-dry mucous NECK: JVD not raised; masses not palpable. HEART: First and second heart sounds are normal; no edema. LUNGS: Respiratory rate normal decreased breath sound. ABDOMEN: Soft, nontender, liver spleen not palpable, no masses palpable. PSYCH: Answering simple questions MUSCULOSKELETAL:No Clubbing/cyanosis;muscles-grossly intact. Evidence of OA. Loss of muscle mass and subcutaneous fat. Prominent bones NEUROLOGICAL: . dysarthria. Right arm weakness with hand contracture. Mild right leg weakness. INVESTIGATIONS, reviewed in the clinical context: Procalcitonin 0.15 August 22: Potassium 4 creatinine 0.72 August 21: White count 8.3 hemoglobin 9.9 potassium 3.2 creatinine 0.82 August 17: White count 14.8 hemoglobin 12.6 potassium 3.4 creatinine 0.78 procalcitonin 0.38 August 15, 2024: White count 22.2 hemoglobin 11.9 platelets 297 sodium 141 potassium 4.9 BUN 38 creatinine 1.04 Troponin I 0.046 UA: Trace protein Influenza type A, type B, RSV, COVID-19: Not detected EKG tracing personally reviewed by me-normal sinus rhythm. Nonspecific ST changes. Chest x-ray film personally reviewed by me-probable right base infiltrate Assessment and plan: -Right basal pneumonia suspect gram-negative organism:, With aspiration pneumonitis on August 19 IV ceftriaxone 2 g daily given initially. Started on IV Zosyn on August 19. Switch over to oral Augmentin-completed course -Acute hypoxic respiratory failure from aspiration pneumonia Initially requiring a Ventimask. Today down to 2 L -Acute large bowel obstruction with emesis. Patient has large fecaloma: Had responded well to soapsuds enemas this morning. For very large bowel movements. Being followed by Dr. Tomas. August 21: Digital disimpaction done by Dr. Tomas. Followed by sigmoidoscopy. Still a significant amount of stool. Postprocedure colonoscopy prep ordered. For further clearing out. GoLytely for further cleansing being given-responded well Diet advanced -Acute metabolic encephalopathy with infection/pneumonia on presentation: Much improved - severe cognitive impairment from advanced dementia - Harris's esophagus PPI Essential Hypertension -Amlodipine -Hyperlipidemia Lipitor -Moderate protein calorie malnutrition loss of muscle mass subcutaneous fat. Albumin 3.2 Compact Ensure 1 can 3 times daily GERD -PPI BPH -Flomax -Right-sided paresis with right arm contracture with right arm weakness more than the Márquez from prior stroke and chronic dysarthria -Positive troponin. Probably from hemodynamic mismatch in the setting of infection. 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, uses wheelchair, has memory problems, hx falls, HIATAL HERNIA, BARRETTS ESOPHAGUS, eczema, History of Any Multi-Drug Resistant Organisms: None Reported Past Surgical History: Adenoidectomy, Tonsillectomy Additional Past Surgical History / Comment(s): rt carotid endarterrectomy, brain surgery for aneurysm, feeding tube/later removed, Past Anesthesia/Blood Transfusion Reactions: No Reported Reaction Past Psychological History: Anxiety Smoking Status: Former smoker Plan - Discharge Summary New Discharge Prescriptions: New Psyllium Husk 100% [Metamucil Packet] 6 gm PO BID #1 packet Continue amLODIPine [Norvasc] 5 mg PO DAILY@0800 Tamsulosin [Flomax] 0.4 mg PO HS@2100 Atorvastatin [Lipitor] 10 mg PO HS@2100 Cholecalciferol (Vitamin D3) [Vitamin D3 (5000 Iu)] 125 mcg PO DAILY@1700 Ketoconazole 2% Shampoo [Nizoral] 1 applic TOPICAL MO Albuterol Inhaler [Ventolin Hfa Inhaler] 2 puff INHALATION RT-Q4H PRN PRN Reason: Shortness Of Breath Omeprazole 40 mg PO DAILY@1700 Ammonium Lactate Cream [Lac-Hydrin 12% Cream] 1 applic TOPICAL DAILY PRN PRN Reason: Dry Skin EPINEPHrine (Auto Inject) [Epipen] 0.3 mg IM ONCE PRN PRN Reason: Anaphylaxis Atropine Sulfate/Pf [Atropine 1% Eye Drops] 2 drop SL BID@0800,1700 Orajel 2x Toothace & Gum Mouth/Throat Gel 20-0.26% 1 applic DENTAL TID PRN PRN Reason: tooth pain Magnesium Hydroxide [Milk of Magnesia Concentrate] 7,200 mg PO Q2D PRN MDD 2 days no BM PRN Reason: Constipation Magic Cup 1 dose PO BID@1200,1700 HYDROcodone/APAP 7.5-325MG [Walling 7.5-325] 1 tab PO Q6H PRN #12 tab PRN Reason: Pain traMADol HCL 50 mg PO Q6H PRN #12 tab PRN Reason: Pain Niacinamide 500 mg PO BID@0800,1700 bisacodyL [Dulcolax] 10 mg RECTAL DAILY PRN PRN Reason: Constipation Na Phos,M-B/Na Phos,Di-Ba [Fleet Adult] 133 ml RECTAL DAILY PRN PRN Reason: Constipation Multivitamins, Thera [Multivitamin (formulary)] 1 tab PO DAILY@1700 Huizar Milk Of Magnesia 325mg Chewable Tab 325 mg PO DAILY PRN PRN Reason: Constipation Ipratropium-Albuterol Nebulize [Duoneb 0.5 mg-3 mg/3 ml Soln] 3 ml INHALATION RT-Q6H PRN PRN Reason: COPD Acetaminophen Tab [Tylenol] 650 mg PO Q4H PRN PRN Reason: Fever And/ Or Pain Acetaminophen Oral Susp [Tylenol] 650 mg PO Q4H PRN PRN Reason: Fever And/ Or Pain Ensure Enlive 474 ml PO 0800,1200,1700 SILVER sulfADIAZINE Cream [Silvadene 1% Cream] 1 applic TOPICAL BID Chlorhexidine Gluconate [Peridex] 15 ml PO BID@0800,1700 polyethylene glycoL 3350 [Miralax] 17 gm PO Q2D@0800 Melatonin 3 mg PO HS@2100 Menthol [Biofreeze] 1 applic TOPICAL HS PRN PRN Reason: joint/leg pain Discontinued guaiFENesin [guaiFENesin Oral Solution] 200 mg PO Q4H PRN PRN Reason: Cough Acetaminophen Suppository [Tylenol Suppository] 650 mg RECTAL Q4H PRN PRN Reason: Fever And/ Or Pain Discharge Medication List Atorvastatin [Lipitor] 10 mg PO HS@209907/09/18 [History] Tamsulosin [Flomax] 0.4 mg PO HS@209907/09/18 [History] amLODIPine [Norvasc] 5 mg PO DAILY@0800 07/09/18 [History] Cholecalciferol (Vitamin D3) [Vitamin D3 (5000 Iu)] 125 mcg PO DAILY@1700 10/03/20 [History] Ketoconazole 2% Shampoo [Nizoral] 1 applic TOPICAL MO 05/11/21 [History] Albuterol Inhaler [Ventolin Hfa Inhaler] 2 puff INHALATION RT-Q4H PRN 12/04/21 [History] Ammonium Lactate Cream [Lac-Hydrin 12% Cream] 1 applic TOPICAL DAILY PRN 12/04/21 [History] Niacinamide 500 mg PO BID@0800,1700 12/04/21 [History] Omeprazole 40 mg PO DAILY@1700 12/04/21 [History] EPINEPHrine (Auto Inject) [Epipen] 0.3 mg IM ONCE PRN 06/21/23 [History] Multivitamins, Thera [Multivitamin (formulary)] 1 tab PO DAILY@17006/21/23 [History] Na Phos,M-B/Na Phos,Di-Ba [Fleet Adult] 133 ml RECTAL DAILY PRN 06/21/23 [History] bisacodyL [Dulcolax] 10 mg RECTAL DAILY PRN 06/21/23 [History] Atropine Sulfate/Pf [Atropine 1% Eye Drops] 2 drop SL BID@0800,1700 01/29/24 [History] Acetaminophen Oral Susp [Tylenol] 650 mg PO Q4H PRN 08/16/24 [History] Acetaminophen Tab [Tylenol] 650 mg PO Q4H PRN 08/16/24 [History] Chlorhexidine Gluconate [Peridex] 15 ml PO BID@0800,1700 08/16/24 [History] Ensure Enlive 474 ml PO 0800,1200,1700 08/16/24 [History] Ipratropium-Albuterol Nebulize [Duoneb 0.5 mg-3 mg/3 ml Soln] 3 ml INHALATION RT-Q6H PRN 08/16/24 [History] Magic Cup 1 dose PO BID@1200,1700 08/16/24 [History] Magnesium Hydroxide [Milk of Magnesia Concentrate] 7,200 mg PO Q2D PRN MDD 2 days no BM 08/16/24 [History] Melatonin 3 mg PO HS@2100 08/16/24 [History] Menthol [Biofreeze] 1 applic TOPICAL HS PRN 08/16/24 [History] Orajel 2x Toothace & Gum Mouth/Throat Gel 20-0.26% 1 applic DENTAL TID PRN 08/16/24 [History] Huizar Milk Of Magnesia 325mg Chewable Tab 325 mg PO DAILY PRN 08/16/24 [History] SILVER sulfADIAZINE Cream [Silvadene 1% Cream] 1 applic TOPICAL BID 08/16/24 [History] polyethylene glycoL 3350 [Miralax] 17 gm PO Q2D@0800 08/16/24 [History] HYDROcodone/APAP 7.5-325MG [Walling 7.5-325] 1 tab PO Q6H PRN #12 tab 08/23/24 [Rx] Psyllium Husk 100% [Metamucil Packet] 6 gm PO BID #1 packet 08/23/24 [Rx] traMADol HCL 50 mg PO Q6H PRN #12 tab 08/23/24 [Rx] Follow up Appointment(s)/Referral(s): Jeffrey Balbuena DO [Primary Care Provider] - 1-2 days
--- NOTE | 2024-08-27 14:10 | CDI ---
Documentation Clarification Form Date: 08/27/2024 01:43:11 PM From: Ivet Cotton RN, CCDS Email: [email or web address] Admit Date: 08/16/2024 12:19:00 AM Patient Name: Fernando Harrison Visit Number: [id number] Discharge Date: 08/23/2024 03:17:00 PM ATTENTION: The Clinical Documentation Specialists (CDI) and [facility] Coding Staff appreciate your assistance in clarifying documentation. Please respond to the clarification below the line at the bottom and electronically sign. The CDI & [facility] Coding staff will review the response and follow-up if needed. Please note: Queries are made part of the Legal Health Record. If you have any questions, please contact the author of this message via ITS. Doctor Sidney Fortune The patient had aspiration pneumonitis, tachycardia, fever and leukocytosis. Based on this information and the findings below, is there an additional diagnosis that is clinically appropriate for this patient? History/Risk Factors: HTN, HLD, CVA with right sided paralysis, wheelchair bound, dementia and anxiety. Presented with fever. Clinical Indicators: 08/15 ED: "Clinical presentation concerning with SIRS given patient's age and debility and comorbidities, he is covered with broad-spectrum antibiotics." 08/16 H&P: "Right basal pneumonia suspect gram-negative organism. Positive troponin. Probably from hemodynamic mismatch in the setting of infection." 08/21 Pulmonary: "Acute leukocytosis, improving." 08/23 Discharge summary: "Acute hypoxic respiratory failure form aspiration pneumonia. Initially requiring a Ventimask." 08/15-08/21 WBC: 22.2-14.8-11.4-18.4-8.3 08/15 Vital signs: Temp 100.4-98.1; HR 95; pox 92% 08/16 Vital signs: HR 112; pox 90% Treatment: Acetaminophen 1000mg po x1 on 08/15 Antibiotics: IV Cefepime 2gm on ; IV Rocephin 2gm Q24H 08/16-08/19; IV Zosyn 3.375gm Q8H 08/19-08/22; IV Vancomycin 1250mg x1 on 08/15; IV Bolus: 1L 0.9 NS IV bolus x1 on 08/15 then 130mL/hr 08/16-08/17 Is there an additional diagnosis that is clinically appropriate for this patient? [ + ] Mild gram negative sepsis, present on admission [ ] No additional diagnosis/not clinically significant [ ] Other, please specify [ ] Unable to determine SIRS Criteria: 2 or more of the following may indicate SIRS Temperature < 96.8F (36C) or > 101.0F (38.3C) Heart Rate > 90 bpm Respiratory Rate > 20 breaths/min or PaCO2 < 32 mmHg White Blood Cell Count > 12,000 or < 4,000 cells/mm3 or > 10% bands MTDD
== END 2024-08-23 15:17 | DRG 871 ==
LOC: EC 20:49 → 3SCARD 08-16 00:19
PROVIDERS: ADMIT Hospitalist; ATTEND Hospitalist
PROC: 0DJD8ZZ Inspection of Lower Intestinal Tract, Via Natural or Artificial Opening Endoscopic (ICD-10-PCS; principal; 2024-08-21 07:30)
DX: A41.50 Gram-negative sepsis, unspecified (principal); G93.41 Metabolic encephalopathy; J69.0 Pneumonitis due to inhalation of food and vomit; J96.01 Acute respiratory failure with hypoxia; E44.0 Moderate protein-calorie malnutrition; Z66 Do not resuscitate; F03.94 Unspecified dementia, unspecified severity, with anxiety; I69.251 Hemiplegia and hemiparesis following other nontraumatic intracranial hemorrhage affecting right dominant side; I71.43 Infrarenal abdominal aortic aneurysm, without rupture; I10 Essential (primary) hypertension; K56.49 Other impaction of intestine; Z68.1 Body mass index [BMI] 19.9 or less, adult; K56.41 Fecal impaction; I69.122 Dysarthria following nontraumatic intracerebral hemorrhage; K44.9 Diaphragmatic hernia without obstruction or gangrene; R41.3 Other amnesia; R53.81 Other malaise; K21.9 Gastro-esophageal reflux disease without esophagitis; K22.70 Barrett's esophagus without dysplasia; N40.0 Benign prostatic hyperplasia without lower urinary tract symptoms; E78.5 Hyperlipidemia, unspecified; Z79.899 Other long term (current) drug therapy; Z85.818 Personal history of malignant neoplasm of other sites of lip, oral cavity, and pharynx; Z87.891 Personal history of nicotine dependence; Z99.3 Dependence on wheelchair; Z91.81 History of falling; Z87.01 Personal history of pneumonia (recurrent); Z88.0 Allergy status to penicillin
CPT/HCPCS: 36415; 45330; 71045; 71046; 74018; 74019; 74177; 80048; 80053; 81003; 83605; 84145; 84295; 84484; 85025; 85027; 87040; 87636; 94760; 96361; 96365; 96366; 96367; 96372; 99285

== ENCOUNTER 2024-10-20 21:08 | Emergency (ER) | payer MEDICARE, OTHER ==
--- NOTE | 2024-10-20 21:15 | ED ---
General Adult HPI - General Stated complaint: abd pain Time Seen by Provider: 10/20/24 21:12 - History of Present Illness Initial comments: Dictation was produced using [employer] dictation software. please excuse any grammatical, word or spelling errors. Chief Complaint: 89-year-old shelter patient presents to the ER for abdominal pain History of Present Illness: Patient is 89-year-old male with multiple comorbidities including throat dementia dyslipidemia hypertension fraction. History present illness obtained from EMS who brings patient from shelter. Patient currently resident [facility]. He has a history of small bowel obstruction. Earlier today he had some abdominal pain. Patient is a poor historian. According to EMS he has had some bowel movements. Patient denies any symptoms at the bedside. Patient feels well does not have any complaints at the bedside. The ROS documented in this emergency department record has been reviewed and confirmed by me. Those systems with pertinent positive or negative responses have been documented in the HPI. All other systems are other negative and/or noncontributory. - Related Data Home Medications Medication Instructions Recorded Confirmed Atorvastatin [Lipitor] 10 mg PO HS@2100 07/09/18 08/16/24 Tamsulosin [Flomax] 0.4 mg PO HS@2100 07/09/18 08/16/24 amLODIPine [Norvasc] 5 mg PO DAILY@0800 07/09/18 08/16/24 Cholecalciferol (Vitamin D3) 125 mcg PO DAILY@1700 10/03/20 08/16/24 [Vitamin D3 (5000 Iu)] Ketoconazole 2% Shampoo [Nizoral] 1 applic TOPICAL MO 05/11/21 08/16/24 Albuterol Inhaler [Ventolin Hfa 2 puff INHALATION RT-Q4H PRN 12/04/21 08/16/24 Inhaler] Ammonium Lactate Cream [Lac-Hydrin 1 applic TOPICAL DAILY PRN 12/04/21 08/16/24 12% Cream] Niacinamide 500 mg PO BID@0800,169912/04/21 08/16/24 Omeprazole 40 mg PO DAILY@0 12/04/21 08/16/24 EPINEPHrine (Auto Inject) [Epipen] 0.3 mg IM ONCE PRN 06/21/23 08/16/24 Multivitamins, Thera [Multivitamin 1 tab PO DAILY@1700 06/21/23 08/16/24 (formulary)] Na Phos,M-B/Na Phos,Di-Ba [Fleet 133 ml RECTAL DAILY PRN 06/21/23 08/16/24 Adult] bisacodyL [Dulcolax] 10 mg RECTAL DAILY PRN 06/21/23 08/16/24 Atropine Sulfate/Pf [Atropine 1% 2 drop SL BID@0800,1700 01/29/24 08/16/24 Eye Drops] Acetaminophen Oral Susp [Tylenol] 650 mg PO Q4H PRN 08/16/24 08/16/24 Acetaminophen Tab [Tylenol] 650 mg PO Q4H PRN 08/16/24 08/16/24 Chlorhexidine Gluconate [Peridex] 15 ml PO BID@0800,1700 08/16/24 08/16/24 Ensure Enlive 474 ml PO 0800,1200,1700 08/16/24 08/16/24 Ipratropium-Albuterol Nebulize 3 ml INHALATION RT-Q6H PRN 08/16/24 08/16/24 [Duoneb 0.5 mg-3 mg/3 ml Soln] Magic Cup 1 dose PO BID@1200,1700 08/16/24 08/16/24 Magnesium Hydroxide [Milk of 7,200 mg PO Q2D PRN MDD 2 days no 08/16/24 08/16/24 Magnesia Concentrate] BM Melatonin 3 mg PO HS@2100 08/16/24 08/16/24 Menthol [Biofreeze] 1 applic TOPICAL HS PRN 08/16/24 08/16/24 Orajel 2x Toothace & Gum 1 applic DENTAL TID PRN 08/16/24 08/16/24 Mouth/Throat Gel 20-0.26% Huizar Milk Of Magnesia 325mg 325 mg PO DAILY PRN 08/16/24 08/16/24 Chewable Tab SILVER sulfADIAZINE Cream 1 applic TOPICAL BID 08/16/24 08/16/24 [Silvadene 1% Cream] polyethylene glycoL 3350 [Miralax] 17 gm PO Q2D@0800 08/16/24 08/16/24 Previous Rx's Medication Instructions Recorded HYDROcodone/APAP 7.5-325MG [[place] 1 tab PO Q6H PRN #12 tab 08/23/24 7.5-325] Psyllium Husk 100% [Metamucil 6 gm PO BID #1 packet 08/23/24 Packet] traMADol HCL 50 mg PO Q6H PRN #12 tab 08/23/24 Allergies Allergy/AdvReac Type Severity Reaction Status Date / Time bee venom protein (honey bee) Allergy Unknown Verified 08/16/24 09:39 Penicillins Allergy Unknown Verified 08/16/24 09:39 Childhood Review of Systems ROS Statement: Those systems with pertinent positive or pertinent negative responses have been documented in the HPI. ROS Other: All systems not noted in ROS Statement are negative. 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 Smoking Status: Former smoker Past Alcohol Use History: Occasional Additional Past Alcohol Use History / Comment(s): quit smoking about 25 yrs ago, smoked for about 35 yrs- cigars Past Drug Use History: None Reported - Past Family History Father History Unknown: Yes Mother Family Medical History: CVA/TIA, Dementia Additional Family Medical History / Comment(s): at age 94 General Exam - General Exam Comments Initial Comments: PHYSICAL EXAM: General Impression: Alert and oriented x3/4, not in acute distress, contracted, cachexia HEENT: Normocephalic atraumatic, extra-ocular movements intact, pupils equal and reactive to light bilaterally, mucous membranes moist. Cardiovascular: Heart regular rate and rhythm Chest: Able to complete full sentences, no retractions, no tachypnea Abdomen: abdomen soft, non-tender, non-distended, no organomegaly Musculoskeletal: Pulses present and equal in all extremities, no peripheral edema Motor: no focal deficits noted Neurological: CN II-XII grossly intact, no focal motor or sensory deficits noted Skin: Intact with no visualized rashes Psych: Normal affect and mood Course Vital Signs 10/20/24 21:12 Temperature 98.7 F Pulse Rate 97 Respiratory 16 Rate Blood Pressure 126/73 O2 Sat by Pulse 94 L Oximetry EKG Findings - EKG Comments: EKG Findings:: My EKG interpretation: Interpretation significantly limited due to significant artifact. ventricular rate 70. Medical Decision Making - Medical Decision Making Was pt. sent in by a medical professional or institution (, PA, PAPER BAG INSPECTOR, urgent care, hospital, or shelter...) When possible be specific @ -No Did you speak to anyone other than the patient for history (EMS, parent, family, police, friend...)? What history was obtained from this source @ -No Did you review nursing and triage notes (agree or disagree)? Why? @ -I reviewed and agree with nursing and triage notes Were old charts reviewed (outside hosp., previous admission, EMS record, old EKG, old radiological studies, urgent care reports/EKG's, shelter records)? Report findings @ -No old charts were reviewed Differential Diagnosis (chest pain, altered mental status, abdominal pain women, abdominal pain men, vaginal bleeding, musculoskeletal, weakness, fever, dyspnea, syncope, headache, dizziness, GI bleed, back pain, seizure, CVA, palpatations, mental health)? @ -Differential Abdominal Pain Men: Appendicitis, cholecystitis, diverticulosis, ischemic bowel, pancreatitis, hepatitis, UTI, gastroenteritis, AAA, incarcerated hernia, bowel obstruction, constipation, inflammatory bowel, hepatitis, peptic ulcer disease, splenic infarction, perforated viscus, testicular torsion, this is not meant to be an all-inclusive list EKG interpreted by me (3pts min.). @ -See above X-rays interpreted by me (1pt min.). @ -Abdominal x-ray is nonacute CT interpreted by me (1pt min.). @ -None done U/S interpreted by me (1pt. min.). @ -None done What testing was considered but not performed or refused? (CT, X-rays, U/S, labs)? Why? @ -None What meds were considered but not given or refused? Why? @ -None Was smoking cessation discussed for >3mins.? @ -No Were there social determinants of health that impacted care today? How? (Homelessness, low income, unemployed, alcoholism, drug addiction, transportation, low edu. Level, literacy, decrease access to med. care, detention, rehab)? @ -No Was there de-escalation of care discussed even if they declined (Discuss DNR or withdrawal of care, Hospice)? DNR status @ -No What co-morbidities impacted this encounter? (DM, HTN, Smoking, COPD, CAD, Cancer, CVA, ARF, Chemo, Hep., AIDS, mental health diagnosis, sleep apnea, morbid obesity)? @ -History of SBO Was patient admitted / discharged? Hospital course, mention meds given and route, prescriptions, significant lab abnormalities, going to OR and other pertinent info. @ -89-year-old male with side had episodes of abdominal pain earlier today signs stable. Patient well-appearing. Abdomen is soft nontender. Patient states he feels at baseline. Labs unremarkable. Patient discharged back to shelter. Did you discuss the management of the patient with other professionals (professionals i.e. , PA, PAPER BAG INSPECTOR, lab, RT, psych nurse, social work supervisor, line closer, teacher, intelligence officer basic, case loader operator)? Give summary @ -No Was critical care preformed (if so, how long)? @ -No Undiagnosed new problem with uncertain prognosis? @ -No Drug Therapy requiring intensive monitoring for toxicity (Heparin, Nitro, Insulin, Cardizem)? @ -No Were any procedures done? @ -No Diagnosis/symptom? Acute, or Chronic, or Acute on Chronic? Uncomplicated (wit hout systemic symptoms) or Complicated (systemic symptoms)? @ -Abdominal pain Side effects of treatment? @ -No Exacerbation, Progression, or Severe Exacerbation? @ -No Poses a threat to life or bodily function? How? (Chest pain, [place], [place], pneumonia, PE, COPD, DKA, ARF, appy, cholecystitis, CVA, Diverticulitis, Homicidal, Suicidal, threat to staff... and all critical care pts) @ -No - Lab Data Result diagrams: 10/20/24 21:17 10/20/24 21:17 Lab Results 10/20/24 10/20/24 Range/Units 21:17 21:17 WBC 8.50 (4.50-10.00) 10*3/uL RBC 3.64 L (4.40-5.60) 10*6/uL Hgb 11.5 L (13.0-17.0) g/dL Hct 34.9 L (39.6-50.0) % MCV 95.9 (80.0-97.0) fL MCH 31.6 (27.0-32.0) pg MCHC 33.0 (32.0-37.0) g/dL Plt Count 154 (140-440) 10*3/uL MPV 9.2 L (9.5-12.2) fL Immature Gran % (Auto) 0.2 % Neutrophils % 71.3 % Lymphocytes % 15.2 % Monocytes % 7.1 % Eosinophils % 5.4 % Basophils % 0.8 % Immature Gran # 0.02 (0.00-0.04) 10*3/uL Neutrophils # 6.06 (1.80-7.70) 10*3/uL Lymphocytes # 1.29 (0.90-5.00) 10*3/uL Monocytes # 0.60 (0.20-1.00) 10*3/uL Eosinophils # 0.46 H (0.04-0.35) 10*3/uL Basophils # 0.07 (0.00-0.10) 10*3/uL Sodium 136 L (137-145) mmol/L Potassium 4.4 (3.5-5.1) mmol/L Chloride 101 (98-107) mmol/L Carbon Dioxide 28 (22-30) mmol/L Anion Gap 7 mmol/L BUN 23 H (9-20) mg/dL Creatinine 0.84 (0.66-1.25) mg/dL Est GFR (CKD-EPI)AfAm >90 (>60 ml/min/1.73 sqM) Est GFR (CKD-EPI)NonAf 79 (>60 ml/min/1.73 sqM) Glucose 99 (74-99) mg/dL Calcium 9.4 (8.4-10.2) mg/dL Total Bilirubin 0.6 (0.2-1.3) mg/dL AST 29 (17-59) U/L ALT 18 (4-49) U/L Alkaline Phosphatase 87 (38-126) U/L Total Protein 6.7 (6.3-8.2) g/dL Albumin 3.6 (3.5-5.0) g/dL Lipase 90 (23-300) U/L Disposition Clinical Impression: Abdominal pain Disposition: HOME SELF-CARE Condition: Good Instructions (If sedation given, give patient instructions): Abdominal Pain (ED) Is patient prescribed a controlled substance at d/c from ED?: No Referrals: Jeffrey Balbuena DO [Primary Care Provider] - 1-2 days Time of Disposition: 22:10
[2024-10-20 21:26] LABS: Basophils # (A) 0.07 10*3/uL (0.00-0.10); Basophils % (A) 0.8 %; Eosinophils # (A) 0.46 10*3/uL (0.04-0.35); Eosinophils % (A) 5.4 %; HCT 34.9 % (39.6-50.0); HGB 11.5 g/dL (13.0-17.0); Lymphocytes # (A) 1.29 10*3/uL (0.90-5.00); Lymphocytes % (A) 15.2 %; MCH 31.6 pg (27.0-32.0); MCV 95.9 fL (80.0-97.0); Mean Platelet Volume 9.2 fL (9.5-12.2); Monocytes % (A) 7.1 %; Neutrophils # (A) 6.06 10*3/uL (1.80-7.70); Neutrophils % (A) 71.3 %; Platelet Count 154 10*3/uL (140-440); RBC 3.64 10*6/uL (4.40-5.60); RDW 15.3 % (11.5-14.5)
[2024-10-20 21:40] LABS: ALT 18 U/L (4-49); AST 29 U/L (17-59); African American GFR (CKD) >90 (>60 ml/min/1.73 sqM); Albumin 3.6 g/dL (3.5-5.0); Alkaline Phosphatase 87 U/L (38-126); Anion Gap 7 mmol/L; Blood Urea Nitrogen 23 mg/dL (9-20); Calcium 9.4 mg/dL (8.4-10.2); Carbon Dioxide 28 mmol/L (22-30); Chloride 101 mmol/L (98-107); Glucose 99 mg/dL (74-99); Lipase 90 U/L (23-300); Non-African American GFR(CKD) 79 (>60 ml/min/1.73 sqM); Potassium 4.4 mmol/L (3.5-5.1); Sodium 136 mmol/L (137-145); Total Bilirubin 0.6 mg/dL (0.2-1.3); Total Protein 6.7 g/dL (6.3-8.2)
--- NOTE | 2024-10-20 22:06 | XR ---
EXAMINATION TYPE: XR abdomen 1V DATE OF EXAM: 10/20/2024 9:49 PM COMPARISON: 08/20/2024. CLINICAL INDICATION: Male, 89 years old with history of abominal pain; [facility] TECHNIQUE: One radiographic view of the abdomen was obtained. FINDINGS: There is gaseous distention of bowel that demonstrates a worse than 08/20/2024. The bowel ga s pattern is nonspecific without dilated loops of small or large bowel. . Fecal material and gas are demonstrated throughout the colon and rectum. There is no evidence for organomegaly or pneumoperitone um. No acute osseous process. No abnormal calcifications are present. IMPRESSION: Gaseous distention of bowel throughout the abdomen subjectively worse than prior.. [facility], , 10/20/2024 10:04 PM
[2024-10-20 22:34] VITALS: RESP 16
[2024-10-20 23:06] VITALS: BP 126/79; PULSE 67; TEMP 98.6
== END 2024-10-20 23:10 | disposition home or self-care (01) ==
LOC: EC 21:08
DX: R10.9 Unspecified abdominal pain (principal); Z88.0 Allergy status to penicillin; Z91.030 Bee allergy status; Z87.891 Personal history of nicotine dependence; Z86.73 Personal history of transient ischemic attack (TIA), and cerebral infarction without residual deficits; Z87.19 Personal history of other diseases of the digestive system
CPT/HCPCS: 36415; 74018; 80053; 83690; 85025; 93005; 99284

== ENCOUNTER 2024-10-29 18:11 | Inpatient (IN) | payer MEDICARE, OTHER ==
[2024-10-29 20:00] LABS: Influenza A Not Detected (Not Detectd); Influenza B Not Detected (Not Detectd); RSV Not Detected (Not Detectd)
[2024-10-29] MEDS: SODIUM CHLORIDE 0.9% 1,000 ML IV ONE (20:11)
[2024-10-29] MEDS: ACETAMINOPHEN IV (For NPO) 1,000 MG in EMPTY BAG 1 BAG IVPB STA (20:11)
[2024-10-29 20:15] LABS: Partial Thromboplastin Time 22.3 sec (22.0-30.0); Prothrombin Time 10.8 sec (10.0-12.5)
[2024-10-29 20:17] LABS: Basophils # (A) 0.08 10*3/uL (0.00-0.10); Basophils % (A) 0.5 %; Eosinophils # (A) 0.08 10*3/uL (0.04-0.35); Eosinophils % (A) 0.5 %; HCT 38.2 % (39.6-50.0); HGB 12.5 g/dL (13.0-17.0); Lymphocytes # (A) 1.22 10*3/uL (0.90-5.00); Lymphocytes % (A) 7.6 %; MCH 31.3 pg (27.0-32.0); MCHC 32.7 g/dL (32.0-37.0); MCV 95.7 fL (80.0-97.0); Mean Platelet Volume 10.3 fL (9.5-12.2); Monocytes # (A) 0.47 10*3/uL (0.20-1.00); Monocytes % (A) 2.9 %; Neutrophils # (A) 14.17 10*3/uL (1.80-7.70); Neutrophils % (A) 88.1 %; Platelet Count 159 10*3/uL (140-440); RBC 3.99 10*6/uL (4.40-5.60); RDW 15.2 % (11.5-14.5); VBG PH 7.37 (7.31-7.41); WBC 16.08 10*3/uL (4.50-10.00)
[2024-10-29 20:41] LABS: Lactic Acid, Venous 2.6 mmol/L (0.7-2.0)
[2024-10-29 20:42] LABS: ALT 17 U/L (4-49); AST 27 U/L (17-59); African American GFR (CKD) 76 (>60 ml/min/1.73 sqM); Albumin 3.7 g/dL (3.5-5.0); Alkaline Phosphatase 85 U/L (38-126); Anion Gap 11 mmol/L; Blood Urea Nitrogen 43 mg/dL (9-20); Carbon Dioxide 26 mmol/L (22-30); Chloride 103 mmol/L (98-107); Glucose 129 mg/dL (74-99); Non-African American GFR(CKD) 66 (>60 ml/min/1.73 sqM); Potassium 4.7 mmol/L (3.5-5.1); Sodium 140 mmol/L (137-145); Total Bilirubin 1.1 mg/dL (0.2-1.3); Total Protein 6.9 g/dL (6.3-8.2)
[2024-10-29] MEDS ORDERED: PNEUMONIA PROTOCOL UTILIZED 1 EACH MISC PO PRN (21:19)
--- NOTE | 2024-10-29 21:29 | CT ---
EXAMINATION TYPE: CT brain wo con DATE OF EXAM: 10/29/2024 8:59 PM COMPARISON: 05/27/2024.. CLINICAL INDICATION: Male, 89 years old with history of AMS, AMS. TECHNIQUE: Brain: Axial CT images of the brain were obtained with coronal and sagittal reformats created and rev iewed. Contrast used: None. Oral contrast used: None. CT DLP: 1304.4 mGycm, Automated exposure control for dose reduction was used. FINDINGS: Brain: Extra-axial spaces: No abnormal extra-axial fluid collections. Ventricular system: Within normal limits Cerebral parenchyma: No family history of the majority of the left MCA territory from prior injury. A cute intraparenchymal hemorrhage or mass effect. The duong-white junction is well differentiated. Aneurysm clips suspected in the middle cranial fossa on the left. Cerebellum: Unremarkable. Mass effect: No evidence of midline shift. Intracranial vasculature: Atherosclerotic calcifications of the intracranial vessels. Soft tissues: Normal. Calvarium/osseous structures: No depressed skull fracture. Posttreatment changes to the skull on the left. Paranasal sinuses and mastoid air cells: Mild scattered paranasal sinus disease. Visualized orbits: Bilateral aphakia IMPRESSION: 1. No acute intracranial process. 2. Nonspecific white matter changes, likely secondary to chronic small vessel ischemic disease. 3. Left MCA territory prior infarct encephalomalacia. 4. Left middle cranial fossa suspected aneurysm clip. [facility], , 10/29/2024 9:27 PM
--- NOTE | 2024-10-29 21:39 | XR ---
EXAMINATION TYPE: XR chest 1V DATE OF EXAM: 10/29/2024 9:06 PM COMPARISON: Chest radiographs from 08/19/2024. CLINICAL INDICATION: Male, 89 years old with history of Weakness; [facility] TECHNIQUE: XR chest 1V Frontal view of the chest. FINDINGS: Lungs/Pleura: There is no evidence of pleural effusion, focal consolidation, or pneumothorax. Pulmonary vascularity: Unremarkable. Heart/mediastinum: Cardiomediastinal silhouette is unremarkable. Musculoskeletal: No acute osseous pathology. Other findings: None IMPRESSION: No acute cardiopulmonary disease/process. [facility], , 10/29/2024 9:37 PM
[2024-10-29] MEDS ORDERED: metroNIDAZOLE-NS PMX 500 MG in SALINE 1 100ML.BAG IVPB SCH (22:00)
[2024-10-29] MEDS ORDERED: ONDANSETRON 4 MG/2 ML VIAL IVP PRN (22:02)
[2024-10-29] MEDS ORDERED: NALOXONE 0.4 MG/ML 1 ML VIAL IV PRN (22:02)
[2024-10-29] MEDS ORDERED: ACETAMINOPHEN TAB 325 MG TAB PO PRN (22:02)
--- NOTE | 2024-10-29 22:13 | ED ---
General Adult HPI - General Chief complaint: Upper Respiratory Infection Stated complaint: SOB Time Seen by Provider: 10/29/24 18:35 Source: patient, EMS, RN notes reviewed, old records reviewed Mode of arrival: EMS - History of Present Illness Initial comments: Patient is an 89-year-old male who presents emergency department complaining of hypoxia. Has a history of dementia and is typically baseline ANO x 1-2. Is currently ANO x 1. Has been having worsening cough as well. Unknown production. Patient has chronic right-sided weakness from old intracranial hemo rrhage. Denies nausea or vomiting. Denies any diarrhea. Denies any chest pain. Denies any abdominal pain. Presents for further evaluation. Apparently at [facility], patient was hypoxic in the 70s or 80s presents. He is not normally on oxygen. - Related Data Home Medications Medication Instructions Recorded Confirmed Atorvastatin [Lipitor] 10 mg PO HS@2100 07/09/18 10/29/24 Tamsulosin [Flomax] 0.4 mg PO DAILY 07/09/18 10/29/24 amLODIPine [Norvasc] 5 mg PO DAILY@0800 07/09/18 10/29/24 Cholecalciferol (Vitamin D3) 125 mcg PO DAILY 10/03/20 10/29/24 [Vitamin D3 (5000 Iu)] Ketoconazole 2% Shampoo [Nizoral] 1 applic TOPICAL MOTH 05/11/21 10/29/24 Albuterol Inhaler [Ventolin Hfa 2 puff INHALATION RT-Q4H PRN 12/04/21 10/29/24 Inhaler] Niacinamide 500 mg PO BID@0800,1700 12/04/21 10/29/24 Omeprazole 40 mg PO DAILY 12/04/21 10/29/24 EPINEPHrine (Auto Inject) [Epipen] 0.3 mg IM ONCE PRN 06/21/23 10/29/24 Multivitamins, Thera [Multivitamin 1 tab PO DAILY 06/21/23 10/29/24 (formulary)] Na Phos,M-B/Na Phos,Di-Ba [Fleet 133 ml RECTAL DAILY PRN 06/21/23 10/29/24 Adult] bisacodyL [Dulcolax] 10 mg RECTAL DAILY PRN 06/21/23 10/29/24 Atropine Sulfate/Pf [Atropine 1% 2 drop SL BID@0800,1700 01/29/24 10/29/24 Eye Drops] Acetaminophen Tab [Tylenol] 650 mg PO Q4H PRN 08/16/24 10/29/24 Chlorhexidine Gluconate [Peridex] 15 ml PO BID@0800,1700 08/16/24 10/29/24 Ipratropium-Albuterol Nebulize 3 ml INHALATION RT-Q6H PRN 08/16/24 10/29/24 [Duoneb 0.5 mg-3 mg/3 ml Soln] Magnesium Hydroxide [Milk of 7,200 mg PO Q2D PRN MDD 2 days no 08/16/24 10/29/24 Magnesia Concentrate] BM Melatonin 3 mg PO HS@2100 08/16/24 10/29/24 Menthol [Biofreeze] 1 applic TOPICAL HS PRN 08/16/24 10/29/24 polyethylene glycoL 3350 [Miralax] 17 gm PO DAILY@0800 08/16/24 10/29/24 Ferrous Sulfate [Feosol] 325 mg PO DAILY 10/29/24 10/29/24 Lactulose 20 gm PO DAILY 10/29/24 10/29/24 Sennosides/Docusate Sodium [Senna 1 cap PO BID 10/29/24 10/29/24 Plus 8.6-50 mg Softgel] Previous Rx's Medication Instructions Recorded HYDROcodone/APAP 7.5-325MG [[place] 1 tab PO Q6H PRN #12 tab 08/23/24 7.5-325] traMADol HCL 50 mg PO Q6H PRN #12 tab 08/23/24 Allergies Allergy/AdvReac Type Severity Reaction Status Date / Time bee venom protein (honey bee) Allergy Unknown Verified 10/29/24 20:12 Penicillins Allergy Unknown Verified 10/29/24 20:12 Childhood Review of Systems ROS Statement: Those systems with pertinent positive or pertinent negative responses have been documented in the HPI. ROS Other: All systems not noted in ROS Statement are negative. 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 Chronic right-sided contractures. HEAD: Normal with no signs of head trauma. EYES: PERRLA, EOMI, conjunctiva normal, no discharge. Pupils are 3 mm equal bilaterally. ENT: Hearing grossly intact, normal oropharynx. RESPIRATORY: Clear breath sounds bilaterally. No wheezes, rales, or rhonchi. C/V: Regular rate and rhythm. S1 and S2 auscultated, no edema, peripheral pulses 2+ and intact throughout ABD: Abd is soft, nontender, nondistended. No guarding or rebound tenderness. No peritoneal signs. EXT: Normal range of motion, no obvious deformity SKIN: No rashes or lesions observed on exposed skin. NEURO: ANO x 1. Chronic right-sided contractures and paralysis from old CVA. No obvious acute change of the mental status. Course Vital Signs 10/29/24 10/29/24 18:17 21:16 Temperature 100 F H Pulse Rate 87 76 Respiratory 16 18 Rate Blood Pressure 129/66 124/65 O2 Sat by Pulse 93 L 97 Oximetry Medical Decision Making - Medical Decision Making Was pt. sent in by a medical professional or institution (, PA, ASSEMBLED WOOD PRODUCTS REPAIRER, urgent care, hospital, or senior care...) When possible be specific @ -No Did you speak to anyone other than the patient for history (EMS, parent, family, police, friend...)? What history was obtained from this source @ -Patient's provides the patient's past medical history. Did you review nursing and triage notes (agree or disagree)? Why? @ -I reviewed and agree with nursing and triage notes Were old charts reviewed (outside hosp., previous admission, EMS record, old EKG, old radiological studies, urgent care reports/EKG's, senior care records)? Report findings @ -Reviewed senior care paperwork which shows history of dementia as well as DNR. Differential Diagnosis (chest pain, altered mental status, abdominal pain women, abdominal pain men, vaginal bleeding, weakness, fever, dyspnea, syncope, headache, dizziness, GI bleed, back pain, seizure, CVA, palpatations, mental health, musculoskeletal)? @ -Differential Weakness: Hypoglycemia, shock, sepsis, hyponatremia, anemia, infection, AL, ETOH, adverse medicine reaction, overdose, stroke, this is not meant to be an all-inclusive list. EKG interpreted by me (3pts min.). @ -As above X-rays interpreted by me (1pt min.). @ -Chest x-ray shows suspected right-sided pneumonia however radiology does not call it as such. CT interpreted by me (1pt min.). @ -CT brain shows no obvious acute findings. Chronic degenerative changes present. U/S interpreted by me (1pt. min.). @ -None done What testing was considered but not performed or refused? (CT, X-rays, U/S, labs)? Why? @ -None What meds were considered but not given or refused? Why? @ -None Did you discuss the management of the patient with other professionals (professionals i.e. , PA, ASSEMBLED WOOD PRODUCTS REPAIRER, lab, RT, psych nurse, social scientist, product designer, teacher, aoc plans intelligence officer, piano case maker)? Give summary @ -Discussed with Dr. Joseph who accepted the admission Was smoking cessation discussed for >3mins.? @ -No Was critical care preformed (if so, how long)? @ -Yes, 30 minutes Were there social determinants of health that impacted care today? How? (Homelessness, low income, unemployed, alcoholism, drug addiction, trans portation, low edu. Level, literacy, decrease access to med. care, residential, rehab)? @ -No Was there de-escalation of care discussed even if they declined (Discuss DNR or withdrawal of care, Hospice)? DNR status @ -No What co-morbidities impacted this encounter? (DM, HTN, Smoking, COPD, CAD, Cancer, CVA, ARF, Chemo, Hep., AIDS, mental health diagnosis, sleep apnea, morbid obesity)? @ -None Was patient admitted / discharged? Hospital course, mention meds given and route, prescriptions, significant lab abnormalities, going to OR and other pertinent info. @ -Patient presents emergency department for suspected aspiration or pneumonia. Some hypoxia at home at [facility] with congestion and coarse breath sounds. Vitals currently unremarkable other than for low-grade fever. Intermittently mildly low oxygen level as low as 90% here. Currently 93% on room air. He is slightly more confused than normal, alert and oriented x 1 when baseline is alert and oriented x 2. We will obtain CT brain as well as pulmonary workup. Patient's was in agreement this plan. He was given IV fluids as he does appear dehydrated. EKG shows no signs of acute ischemia. CT brain shows old chronic degenerative findings. Chest x-ray as interpreted by myself shows some mild patchiness which is concerning for some right-sided pneumonia however radiology read states is negative. Laboratory studies remarkable for leukocytosis of 16, a chronic anemia of 12.5 which appears stable, a lactic acidosis of 2.6. Viral swabs negative. With the intermittent hypoxia, initially soft blood pressures, leukocytosis, lactic acidosis, patient has multiple SIRS criteria and does meet criteria for sepsis. Patient meets sepsis criteria at 2120. Blood culture ordered. Patient given additional 500 cc fluid bolus of lactated Ringer's and started on 130 cc an hour to complete the 30 cc/kg fluid bolus requirements. Patient started on antibiotics for pneumonia including Rocephin and azithromycin. Flagyl originall y ordered however patient's admitting provider asked that I cancel it. After the patient's and patient. He will be admitted to the hospital at this time. They were in agreement this plan. I spoke with Dr. Fortune the admitting provider who accepted the admission. Undiagnosed new problem with uncertain prognosis? @ -No Drug Therapy requiring intensive monitoring for toxicity (Heparin, Nitro, Insulin, Cardizem)? @ -No Were any procedures done? @ -No Diagnosis/symptom? @ -Sepsis, pneumonia Acute, or Chronic, or Acute on Chronic? @ -Acute Uncomplicated (without systemic symptoms) or Complicated (systemic symptoms)? @ -Complicated Side effects of treatment? @ -No Exacerbation, Progression, or Severe Exacerbation? @ -No Poses a threat to life or bodily function? How? (Chest pain, USA, AL, pneumonia, PE, COPD, DKA, ARF, appy, cholecystitis, CVA, Diverticulitis, Homicidal, Suici kiran, threat to staff... and all critical care pts) @ -Yes - Lab Data Result diagrams: 10/29/24 20:06 10/29/24 18:55 Lab Results 10/29/24 10/29/24 10/29/24 Range/Units 18:55 18:55 18:55 WBC (4.50-10.00) 10*3/uL RBC (4.40-5.60) 10*6/uL Hgb (13.0-17.0) g/dL Hct (39.6-50.0) % MCV (80.0-97.0) fL MCH (27.0-32.0) pg MCHC (32.0-37.0) g/dL Plt Count (140-440) 10*3/uL MPV (9.5-12.2) fL Immature Gran % (Auto) % Neutrophils % % Lymphocytes % % Monocytes % % Eosinophils % % Basophils % % Immature Gran # (0.00-0.04) 10*3/uL Neutrophils # (1.80-7.70) 10*3/uL Lymphocytes # (0.90-5.00) 10*3/uL Monocytes # (0.20-1.00) 10*3/uL Eosinophils # (0.04-0.35) 10*3/uL Basophils # (0.00-0.10) 10*3/uL PT 10.8 (10.0-12.5) sec INR 1.0 (<1.2) APTT 22.3 (22.0-30.0) sec VBG pH (7.31-7.41) VBG pCO2 (37-51) mmHg VBG HCO3 (24-28) mmol/L Sodium 140 (137-145) mmol/L Potassium 4.7 (3.5-5.1) mmol/L Chloride 103 (98-107) mmol/L Carbon Dioxide 26 (22-30) mmol/L Anion Gap 11 mmol/L BUN 43 H (9-20) mg/dL Creatinine 1.02 (0.66-1.25) mg/dL Est GFR (CKD-EPI)AfAm 76 (>60 ml/min/1.73 sqM) Est GFR (CKD-EPI)NonAf 66 (>60 ml/min/1.73 sqM) Glucose 129 H (74-99) mg/dL Plasma Lactic Acid Chago (0.7-2.0) mmol/L Calcium 10.0 (8.4-10.2) mg/dL Magnesium 2.0 (1.6-2.3) mg/dL Total Bilirubin 1.1 (0.2-1.3) mg/dL AST 27 (17-59) U/L ALT 17 (4-49) U/L Alkaline Phosphatase 85 (38-126) U/L Ammonia (<30) umol/L Total Protein 6.9 (6.3-8.2) g/dL Albumin 3.7 (3.5-5.0) g/dL Influenza Type A (PCR) Not Detected (Not Detectd) Influenza Type B (PCR) Not Detected (Not Detectd) RSV (PCR) Not Detected (Not Detectd) SARS-CoV-2 (PCR) Not Detected (Not Detectd) 10/29/24 10/29/24 10/29/24 Range/Units 20:06 20:06 20:06 WBC 16.08 H (4.50-10.00) 10*3/uL RBC 3.99 L (4.40-5.60) 10*6/uL Hgb 12.5 L (13.0-17.0) g/dL Hct 38.2 L (39.6-50.0) % MCV 95.7 (80.0-97.0) fL MCH 31.3 (27.0-32.0) pg MCHC 32.7 (32.0-37.0) g/dL Plt Count 159 (140-440) 10*3/uL MPV 10.3 (9.5-12.2) fL Immature Gran % (Auto) 0.4 % Neutrophils % 88.1 % Lymphocytes % 7.6 % Monocytes % 2.9 % Eosinophils % 0.5 % Basophils % 0.5 % Immature Gran # 0.06 H (0.00-0.04) 10*3/uL Neutrophils # 14.17 H (1.80-7.70) 10*3/uL Lymphocytes # 1.22 (0.90-5.00) 10*3/uL Monocytes # 0.47 (0.20-1.00) 10*3/uL Eosinophils # 0.08 (0.04-0.35) 10*3/uL Basophils # 0.08 (0.00-0.10) 10*3/uL PT (10.0-12.5) sec INR (<1.2) APTT (22.0-30.0) sec VBG pH 7.37 (7.31-7.41) VBG pCO2 48 (37-51) mmHg VBG HCO3 28 (24-28) mmol/L Sodium (137-145) mmol/L Potassium (3.5-5.1) mmol/L Chloride (98-107) mmol/L Carbon Dioxide (22-30) mmol/L Anion Gap mmol/L BUN (9-20) mg/dL Creatinine (0.66-1.25) mg/dL Est GFR (CKD-EPI)AfAm (>60 ml/min/1.73 sqM) Est GFR (CKD-EPI)NonAf (>60 ml/min/1.73 sqM) Glucose (74-99) mg/dL Plasma Lactic Acid Chago 2.6 H* (0.7-2.0) mmol/L Calcium (8.4-10.2) mg/dL Magnesium (1.6-2.3) mg/dL Total Bilirubin (0.2-1.3) mg/dL AST (17-59) U/L ALT (4-49) U/L Alkaline Phosphatase (38-126) U/L Ammonia <9 (<30) umol/L Total Protein (6.3-8.2) g/dL Albumin (3.5-5.0) g/dL Influenza Type A (PCR) (Not Detectd) Influenza Type B (PCR) (Not Detectd) RSV (PCR) (Not Detectd) SARS-CoV-2 (PCR) (Not Detectd) - EKG Data -: EKG Interpreted by Me EKG Comments: 12-lead Electrocardiogram Interpretation Note EKG was reviewed and interpreted by myself. 12-lead ECG performed at 2024 is interpreted by me as revealing normal sinus rhythm at a rate of 81 beats per minute. [place] is normal. [place] interval is 172 ms, QRS duration is 80 ms, QTc is 339 ms.. There were no ST or T wave abnormalities to suggest myocardial ischemia or injury. R wave progression across the precordium was satisfactory. By my interpretation this EKG is non-diagnostic for acute ischemia. Critical Care Time Critical Care Time: Yes Total Critical Care Time: 30 Disposition Clinical Impression: Sepsis, Pneumonia Disposition: ADMITTED IP TO THIS HOSP Condition: Stable Referrals: Jeffrey Balbuena DO [Primary Care Provider] - 1-2 days Time of Disposition: 21:50
[2024-10-29 22:42] LABS: Appearance,Urine Clear (Clear); Bilirubin,Urine Negative (Negative); Blood,Urine Negative (Negative); Color,Urine Yellow; Glucose,Urine (UA) Negative (Negative); Ketones,Urine Negative (Negative); Leukocyte Esterase,Urine Negative (Negative); Nitrite,Urine Negative (Negative); PH, Urine 5.5 (5.0-8.0); Protein,Urine Negative (Negative); Specific Gravity,Urine 1.025 (1.001-1.035)
[2024-10-29] MEDS: LACTATED RINGERS 500 ML IV ONE (23:22)
[2024-10-29] MEDS: AZITHROMYCIN 500 MG in SODIUM CHLORIDE 0.9% 250 ML IVPB STA (23:24)
[2024-10-29] MEDS: LACTATED RINGERS 1,000 ML IV SCH (23:28)
[2024-10-30 05:59] LABS: Basophils # (A) 0.07 10*3/uL (0.00-0.10); Basophils % (A) 0.6 %; Eosinophils # (A) 0.12 10*3/uL (0.04-0.35); HCT 31.5 % (39.6-50.0); HGB 10.3 g/dL (13.0-17.0); Immature Platelet Fraction 3.7 % (1.1-6.1); MCH 31.7 pg (27.0-32.0); MCHC 32.7 g/dL (32.0-37.0); MCV 96.9 fL (80.0-97.0); Mean Platelet Volume 10.6 fL (9.5-12.2); Monocytes # (A) 0.52 10*3/uL (0.20-1.00); Monocytes % (A) 4.3 %; Neutrophils # (A) 10.07 10*3/uL (1.80-7.70); Neutrophils % (A) 83.7 %; Platelet Count 135 10*3/uL (140-440); RBC 3.25 10*6/uL (4.40-5.60); RDW 15.3 % (11.5-14.5); WBC 12.03 10*3/uL (4.50-10.00)
[2024-10-30 06:15] LABS: ALT 14 U/L (4-49); AST 24 U/L (17-59); African American GFR (CKD) >90 (>60 ml/min/1.73 sqM); Alkaline Phosphatase 76 U/L (38-126); Anion Gap 8 mmol/L; Blood Urea Nitrogen 36 mg/dL (9-20); Calcium 9.1 mg/dL (8.4-10.2); Carbon Dioxide 23 mmol/L (22-30); Chloride 106 mmol/L (98-107); Glucose 94 mg/dL (74-99); Non-African American GFR(CKD) 83 (>60 ml/min/1.73 sqM); Sodium 137 mmol/L (137-145); Total Bilirubin 0.8 mg/dL (0.2-1.3); Total Protein 5.8 g/dL (6.3-8.2)
--- NOTE | 2024-10-30 07:38 | XR ---
EXAMINATION TYPE: XR chest 1V portable DATE OF EXAM: 10/30/2024 7:00 AM COMPARISON: 10/29/2024 CLINICAL INDICATION: Male, 89 years old with history of pneumonia, TECHNIQUE: XR chest 1V portable views of the chest are obtained. FINDINGS: Examination is limited by overlying soft tissue and osseous structures at the right lung base. Demonstrated are scattered senescent parenchymal change. There is no evidence for focal infiltrate. The heart is stable. Hilar and mediastinal structures are within normal limits. Degenerative changes are seen of the dorsal spine. IMPRESSION: 1. Limited study given over lying soft tissue and osseous structures at the right lung base. Underly ing infiltrate is difficult to exclude. [facility], , 10/30/2024 7:35 AM
[2024-10-30] MEDS ORDERED: METHYL SALICYLATE-MENTHOL OINT (3 OZ TUBE) TOPICAL PRN (11:05)
[2024-10-30] MEDS ORDERED: bisacodyL 10 MG SUPP RECTAL PRN (11:05)
[2024-10-30] MEDS ORDERED: ALBUTEROL HFA INHALER INHALATION PRN (11:05)
[2024-10-30] MEDS ORDERED: traMADol 50 MG TAB PO PRN (11:05)
[2024-10-30] MEDS ORDERED: IPRATROPIUM-ALBUTEROL 3 ML NEB INHALATION PRN (11:05)
[2024-10-30] MEDS ORDERED: HYDROcodone/APAP 7.5-325MG 1 EACH TAB PO PRN (11:05)
[2024-10-30] MEDS: KETOCONAZOLE 2% SHAMPOO 1 APPLIC/ML TOPICAL SCH (13:15)
[2024-10-30] MEDS: ATROPINE OPHTH SOLN 1% 5ML BTL SUBLINGUAL SCH (13:16)
[2024-10-30] MEDS: CHLORHEXIDINE GLUCONATE 15 ML CUP MUCOUS MEM SCH (13:30)
[2024-10-30 14:56] VITALS: BMI 17.5
--- NOTE | 2024-10-30 16:03 | P.HPIM ---
History of Present Illness H&P Date: 10/30/24 Chief Complaint: Cough, decreased oxygen 89-year-old male with a past medical history of hypertension, hyperlipidemia, history of CVA with right-sided paralysis and speech problems -uses wheelchair and dementia, anxiety and prior history of smoking and also right carotid end arterectomy resident of [facility]. Patient himself not able to give much of history. Keeps repeating things. Brought in yesterday to the ER from the [facility]. Per the EMS: They arrived at the [facility]. Patient was completely short of breath. Pulse ox dropped to 77% on room air. Was placed on 2 L nasal cannula. Oxygen increased to 97%. Patient received IV ceftriaxone Zithromax and Flagyl in the ER. Patient seen this morning. at the bedside. Patient did tolerate pured diet. Answering simple questions. 2 L nasal cannula. Review of systems patient cannot himself answer any questions except for wanted to Past medical history to include: Hypertension, hyperlipidemia, BPH, severe cognitive impairment from prior stroke, GERD, right-sided weakness from prior stroke, dysarthria, chronic medical debility using a wheelchair, Harris's esophagus Social history: . smoked for about 35 years, cigars. Stop smoking about 24 years ago. Uses a wheelchair -at [facility] PHYSICAL EXAMINATION: VITAL SIGNS: 100, 87, 16, 129 x 76, 93% room air upon presentation GENERAL: Reclining in bed, awake not in distress EYES: Pupils equal. Conjunctiva normal. HEENT: External appearance of nose and ears normal, oral cavity-dry mucous NECK: JVD not raised; masses not palpable. HEART: First and second heart sounds are normal; no edema. LUNGS: Respiratory rate increased decreased breath sound. ABDOMEN: Soft, nontender, liver spleen not palpable, no masses palpable. PSYCH: Answering simple questions MUSCULOSKELETAL:No Clubbing/cyanosis;muscles-grossly intact. Evidence of OA. Loss of muscle mass and subcutaneous fat. Prominent bones NEUROLOGICAL: . dysarthria. Right arm weakness with hand contracture. Mild right leg weakness. INVESTIGATIONS, reviewed in the clinical context: October 30, 2024: White count 12.0 hemoglobin 10.3 platelets 135 sodium 137 potassium 4 creatinine 0.74 October 29 02/18/2025: White count 16.0 hemoglobin 12.5 platelets 159 lactic acid 2.6. Albumin 3 UA: Negative urine Legionella antigen negative CT brain: Nonspecific white matter changes. Left MCA territory prior infarct/encephalomalacia. Left middle cranial fossa suspected aneurysmal clip Chest x-ray film personally reviewed by me-possible infiltrate right lower lobe close to right heart border EKG tracing personally reviewed by me-nonspecific T waves Assessment and plan: -Right basal pneumonia suspect gram-negative organism:, Probable aspiration, causing sepsis IV ceftriaxone. Given likely aspiration will DC Zithromax - Sepsis secondary to pneumonia IV antibiotics. IV fluids -Acute hypoxic respiratory failure from aspiration pneumonia Oxygen presentation 92% - severe cognitive impairment from advanced dementia - Severe chronic dysarthria from stroke Patient can say a word or two a time - Chronic dysphagia On a pured diet. Supervised. Aspiration precaution - Harris's esophagus PPI Essential Hypertension -Amlodipine -Hyperlipidemia Lipitor -Moderate protein calorie malnutrition loss of muscle mass subcutaneous fat. Albumin 3.0 Compact Ensure 1 can 3 times daily GERD -PPI BPH -Flomax -Right-sided paresis with right arm contracture with right arm weakness more than the Márquez from prior stroke and chronic dysarthria -DO NOT RESUSCITATE Spoke to patient's at the bedside. 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 Smoking Status: Former smoker Past Alcohol Use History: Occasional Additional Past Alcohol Use History / Comment(s): quit smoking about 25 yrs ago, smoked for about 35 yrs- cigars Past Drug Use History: None Reported - Past Family History Father History Unknown: Yes Mother Family Medical History: CVA/TIA, Dementia Additional Family Medical History / Comment(s): at age 94 Medications and Allergies Home Medications Medication Instructions Recorded Confirmed Type Atorvastatin [Lipitor] 10 mg PO HS@2100 07/09/18 10/29/24 History Tamsulosin [Flomax] 0.4 mg PO DAILY 07/09/18 10/29/24 History amLODIPine [Norvasc] 5 mg PO DAILY@0800 07/09/18 10/29/24 History Cholecalciferol (Vitamin D3) 125 mcg PO DAILY 10/03/20 10/29/24 History [Vitamin D3 (5000 Iu)] Ketoconazole 2% Shampoo [Nizoral] 1 applic TOPICAL MOTH 05/11/21 10/29/24 History Albuterol Inhaler [Ventolin Hfa 2 puff INHALATION RT-Q4H PRN 12/04/21 10/29/24 History Inhaler] Niacinamide 500 mg PO BID@0800,1700 12/04/21 10/29/24 History Omeprazole 40 mg PO DAILY 12/04/21 10/29/24 History EPINEPHrine (Auto Inject) [Epipen] 0.3 mg IM ONCE PRN 06/21/23 10/29/24 History Multivitamins, Thera [Multivitamin 1 tab PO DAILY 06/21/23 10/29/24 History (formulary)] Na Phos,M-B/Na Phos,Di-Ba [Fleet 133 ml RECTAL DAILY PRN 06/21/23 10/29/24 History Adult] bisacodyL [Dulcolax] 10 mg RECTAL DAILY PRN 06/21/23 10/29/24 History Atropine Sulfate/Pf [Atropine 1% 2 drop SL BID@0800,1700 01/29/24 10/29/24 History Eye Drops] Acetaminophen Tab [Tylenol] 650 mg PO Q4H PRN 08/16/24 10/29/24 History Chlorhexidine Gluconate [Peridex] 15 ml PO BID@0800,1700 08/16/24 10/29/24 History Ipratropium-Albuterol Nebulize 3 ml INHALATION RT-Q6H PRN 08/16/24 10/29/24 History [Duoneb 0.5 mg-3 mg/3 ml Soln] Magnesium Hydroxide [Milk of 7,200 mg PO Q2D PRN MDD 2 days no 08/16/24 10/29/24 History Magnesia Concentrate] BM Melatonin 3 mg PO HS@2100 08/16/24 10/29/24 History Menthol [Biofreeze] 1 applic TOPICAL HS PRN 08/16/24 10/29/24 History polyethylene glycoL 3350 [Miralax] 17 gm PO DAILY@0800 08/16/24 10/29/24 History HYDROcodone/APAP 7.5-325MG [[place] 1 tab PO Q6H PRN #12 tab 08/23/24 10/29/24 Rx 7.5-325] traMADol HCL 50 mg PO Q6H PRN #12 tab 08/23/24 10/29/24 Rx Ferrous Sulfate [Feosol] 325 mg PO DAILY 10/29/24 10/29/24 History Lactulose 20 gm PO DAILY 10/29/24 10/29/24 History Sennosides/Docusate Sodium [Senna 1 cap PO BID 10/29/24 10/29/24 History Plus 8.6-50 mg Softgel] Allergies Allergy/AdvReac Type Severity Reaction Status Date / Time bee venom protein (honey bee) Allergy Unknown Verified 10/29/24 20:12 Penicillins Allergy Unknown Verified 10/29/24 20:12 Childhood Physical Exam Vitals: Vital Signs Temp Pulse Pulse Resp BP BP Pulse Ox 10/30/24 07:03 98 F 62 18 146/73 92 L 10/30/24 01:25 97.6 F 73 16 110/55 92 L 10/30/24 00:15 98.4 F 10/30/24 00:00 79 16 122/55 97 10/29/24 21:16 76 18 124/65 97 10/29/24 18:17 100 F H 87 16 129/66 93 L Intake and Output 10/29/24 10/30/24 10/30/24 22:59 06:59 14:59 Intake Total 1350 Output Total 550 Balance 1350 -550 Intake: Oral 1350 Output: Urine 550 Straight 550 Other: Weight 50.802 kg 50.802 kg Results CBC & Chem 7: 10/30/24 05:37 10/30/24 05:37 Labs: Abnormal Lab Results - Last 24 Hours (Table) 10/29/24 10/29/24 10/29/24 Range/Units 18:55 20:06 20:06 WBC 16.08 H (4.50-10.00) 10*3/uL RBC 3.99 L (4.40-5.60) 10*6/uL Hgb 12.5 L (13.0-17.0) g/dL Hct 38.2 L (39.6-50.0) % Plt Count (140-440) 10*3/uL Immature Gran # 0.06 H (0.00-0.04) 10*3/uL Neutrophils # 14.17 H (1.80-7.70) 10*3/uL BUN 43 H (9-20) mg/dL Glucose 129 H (74-99) mg/dL Plasma Lactic Acid Chago 2.6 H* (0.7-2.0) mmol/L Total Protein (6.3-8.2) g/dL Albumin (3.5-5.0) g/dL 10/30/24 10/30/24 Range/Units 05:37 05:37 WBC 12.03 H (4.50-10.00) 10*3/uL RBC 3.25 L (4.40-5.60) 10*6/uL Hgb 10.3 L (13.0-17.0) g/dL Hct 31.5 L (39.6-50.0) % Plt Count 135 L (140-440) 10*3/uL Immature Gran # 0.05 H (0.00-0.04) 10*3/uL Neutrophils # 10.07 H (1.80-7.70) 10*3/uL BUN 36 H (9-20) mg/dL Glucose (74-99) mg/dL Plasma Lactic Acid Chago (0.7-2.0) mmol/L Total Protein 5.8 L (6.3-8.2) g/dL Albumin 3.0 L (3.5-5.0) g/dL Thrombosis Risk Factor Assmnt - Choose All That Apply Any of the Below Risk Factors Present?: Yes Each Risk Factor Represents 3 Points: Age 75 years or older Thrombosis Risk Factor Assessment Total Risk Factor Score: 3 Thrombosis Risk Factor Assessment Level: Moderate Risk
[2024-10-30] MEDS: amLODIPine 5 MG TAB PO SCH (16:41)
[2024-10-30] MEDS: LACTULOSE 20 GM/30 ML CUP PO SCH (16:42)
[2024-10-30] MEDS ORDERED: AZITHROMYCIN 500 MG TAB PO SCH (18:00)
[2024-10-30] MEDS: ENOXAPARIN 40 MG/0.4 ML SYRINGE SQ SCH (18:12)
[2024-10-30] MEDS: PANTOPRAZOLE 40 MG TABLET PO SCH (18:22)
[2024-10-30] MEDS: TAMSULOSIN 0.4 MG CAP.ER.24H PO SCH (18:22)
[2024-10-30] MEDS: LACTATED RINGERS 500 ML IV SCH (18:22)
[2024-10-30] MEDS: NIACIN TR 500 MG CAPLET PO SCH (18:23)
[2024-10-30] MEDS: cefTRIAXone 2 GM in DEXTROSE 5% IN WATER 50 ML IVPB SCH (18:57)
[2024-10-30] MEDS: MELATONIN 3 MG TABLET PO SCH (20:41)
[2024-10-30] MEDS: ATORVASTATIN 10 MG TAB PO SCH (20:41)
[2024-10-31 07:40] VITALS: RESP 17
[2024-10-31] MEDS: MULTIVITAMINS, THERA 1 EACH TAB PO SCH (08:23)
[2024-10-31] MEDS: CHOLECALCIFEROL 125 MCG (5000 IU) TABLET PO SCH (08:23)
[2024-10-31] MEDS: FERROUS SULFATE 325 MG TAB PO SCH (08:23)
--- NOTE | 2024-10-31 12:42 | P.DS ---
Providers Date of admission: 10/29/24 22:04 Expected date of discharge: 10/31/24 Attending physician: Sidney Fortune Primary care physician: [facility] Course: Chief Complaint: Cough, decreased oxygen 89-year-old male with a past medical history of hypertension, hyperlipidemia, history of CVA with right-sided paralysis and speech problems -uses wheelchair and dementia, anxiety and prior history of smoking and also right carotid endarterectomy resident of [facility]. Patient himself not able to give much of history. Keeps repeating things. Brought in yesterday to the ER from the [facility]. Per the EMS: They arrived at the [facility]. Patient was completely short of breath. Pulse ox dropped to 77% on room air. Was placed on 2 L nasal cannula. Oxygen increased to 97%. Patient received IV ceftriaxone Zithromax and Flagyl in the ER. Patient seen this morning. at the bedside. Patient did tolerate pured diet. Answering simple questions. 2 L nasal cannula. October 31: Patient doing well. at the bedside. Tolerating his diet. 2 L nasal cannula. Appears comfortable. No coughing. Will complete 3 more days of Ceftin. Return to [facility]. Discussion and discharge planning more than 35 minutes Past medical history to include: Hypertension, hyperlipidemia, BPH, severe cognitive impairment from prior stroke, GERD, right-sided weakness from prior stroke, dysarthria, chronic medical debility using a wheelchair, Harris's esophagus Social history: . smoked for about 35 years, cigars. Stop smoking about 24 years ago. Uses a wheelchair -at [facility] PHYSICAL EXAMINATION: VITAL SIGNS: 97.3, 78, 17, 159 x 78, 94% 2 L GENERAL: Reclining in bed, awake, comfortable EYES: Pupils equal. Conjunctiva normal. HEENT: External appearance of nose and ears normal, oral cavity-dry mucous NECK: JVD not raised; masses not palpable. HEART: First and second heart sounds are normal; no edema. LUNGS: Respiratory rate normal decreased breath sound. ABDOMEN: Soft, nontender, liver spleen not palpable, no masses palpable. PSYCH: Answering simple questions MUSCULOSKELETAL:No Clubbing/cyanosis;muscles-grossly intact. Evidence of OA. Loss of muscle mass and subcutaneous fat. Prominent bones NEUROLOGICAL: . dysarthria. Right arm weakness with hand contracture. Mild right leg weakness. INVESTIGATIONS, reviewed in the clinical context: October 31: Procalcitonin 3.24 October 30, 2024: White count 12.0 hemoglobin 10.3 platelets 135 sodium 137 potassium 4 creatinine 0.74 October 29 02/18/2025: White count 16.0 hemoglobin 12.5 platelets 159 lactic acid 2.6. Albumin 3 UA: Negative urine Legionella antigen negative CT brain: Nonspecific white matter changes. Left MCA territory prior infarct/encephalomalacia. Left middle cranial fossa suspected aneurysmal clip Chest x-ray film personally reviewed by me-possible infiltrate right lower lobe close to right heart border EKG tracing personally reviewed by me-nonspecific T waves Assessment and plan: -Right basal pneumonia suspect gram-negative organism:, Probable aspiration, causing sepsis: Improving IV ceftriaxone. Discharged on Ceftin 500 twice daily for 3 more days - Sepsis secondary to pneumonia: Resolved IV antibiotics. IV fluids -Acute hypoxic respiratory failure from aspiration pneumonia: Improved Oxygen presentation 92% - severe cognitive impairment from advanced dementia - Severe chronic dysarthria from stroke Patient can say a word or two a time - Chronic dysphagia On a pured diet. Supervised. Aspiration precaution - Harris's esophagus PPI Essential Hypertension -Amlodipine -Hyperlipidemia Lipitor -Moderate protein calorie malnutrition loss of muscle mass subcutaneous fat. Albumin 3.0 Compact Ensure 1 can 3 times daily - Chronic medical debility. 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 Smoking Status: Former smoker Past Alcohol Use History: Occasional Additional Past Alcohol Use History / Comment(s): quit smoking about 25 yrs ago, smoked for about 35 yrs- cigars Past Drug Use History: None Reported Plan - Discharge Summary New Discharge Prescriptions: New cefuroxime axetiL [Ceftin] 500 mg PO BID #6 tab Continue amLODIPine [Norvasc] 5 mg PO DAILY@0800 Tamsulosin [Flomax] 0.4 mg PO DAILY Atorvastatin [Lipitor] 10 mg PO HS@2100 Cholecalciferol (Vitamin D3) [Vitamin D3 (5000 Iu)] 125 mcg PO DAILY Ketoconazole 2% Shampoo [Nizoral] 1 applic TOPICAL MOTH Albuterol Inhaler [Ventolin Hfa Inhaler] 2 puff INHALATION RT-Q4H PRN PRN Reason: Shortness Of Breath Omeprazole 40 mg PO DAILY EPINEPHrine (Auto Inject) [Epipen] 0.3 mg IM ONCE PRN PRN Reason: Anaphylaxis Atropine Sulfate/Pf [Atropine 1% Eye Drops] 2 drop SL BID@0800,1700 Magnesium Hydroxide [Milk of Magnesia Concentrate] 7,200 mg PO Q2D PRN MDD 2 days no BM PRN Reason: Constipation Ferrous Sulfate [Iron (65 MG Elemental)] 325 mg PO DAILY Lactulose 20 gm PO DAILY traMADol HCL 50 mg PO Q6H PRN #12 tab PRN Reason: Pain Niacinamide 500 mg PO BID@0800,1700 bisacodyL [Dulcolax] 10 mg RECTAL DAILY PRN PRN Reason: Constipation Na Phos,M-B/Na Phos,Di-Ba [Fleet Adult] 133 ml RECTAL DAILY PRN PRN Reason: Constipation Multivitamins, Thera [Multivitamin (formulary)] 1 tab PO DAILY Ipratropium-Albuterol Nebulize [Duoneb 0.5 mg-3 mg/3 ml Soln] 3 ml INHALATION RT-Q6H PRN PRN Reason: COPD Acetaminophen Tab [Tylenol] 650 mg PO Q4H PRN PRN Reason: Fever And/ Or Pain Chlorhexidine Gluconate [Peridex] 15 ml PO BID@0800,1700 polyethylene glycoL 3350 [Miralax] 17 gm PO DAILY@0800 Melatonin 3 mg PO HS@2100 Menthol [Biofreeze] 1 applic TOPICAL HS PRN PRN Reason: joint/leg pain Sennosides/Docusate Sodium [Senna Plus 8.6-50 mg Softgel] 1 cap PO BID HYDROcodone/APAP 7.5-325MG [Stafford 7.5-325] 1 tab PO Q6H PRN #12 tab PRN Reason: Pain Discharge Medication List Atorvastatin [Lipitor] 10 mg PO HS@2100 07/09/18 [History] Tamsulosin [Flomax] 0.4 mg PO DAILY 07/09/18 [History] amLODIPine [Norvasc] 5 mg PO DAILY@0800 07/09/18 [History] Cholecalciferol (Vitamin D3) [Vitamin D3 (5000 Iu)] 125 mcg PO DAILY 10/03/20 [History] Ketoconazole 2% Shampoo [Nizoral] 1 applic TOPICAL MOTH 05/11/21 [History] Albuterol Inhaler [Ventolin Hfa Inhaler] 2 puff INHALATION RT-Q4H PRN 12/04/21 [History] Niacinamide 500 mg PO BID@0800,1700 12/04/21 [History] Omeprazole 40 mg PO DAILY 12/04/21 [History] EPINEPHrine (Auto Inject) [Epipen] 0.3 mg IM ONCE PRN 06/21/23 [History] Multivitamins, Thera [Multivitamin (formulary)] 1 tab PO DAILY 06/21/23 [History] Na Phos,M-B/Na Phos,Di-Ba [Fleet Adult] 133 ml RECTAL DAILY PRN 06/21/23 [History] bisacodyL [Dulcolax] 10 mg RECTAL DAILY PRN 06/21/23 [History] Atropine Sulfate/Pf [Atropine 1% Eye Drops] 2 drop SL BID@0800,1700 01/29/24 [History] Acetaminophen Tab [Tylenol] 650 mg PO Q4H PRN 08/16/24 [History] Chlorhexidine Gluconate [Peridex] 15 ml PO BID@0800,1700 08/16/24 [History] Ipratropium-Albuterol Nebulize [Duoneb 0.5 mg-3 mg/3 ml Soln] 3 ml INHALATION RT-Q6H PRN 08/16/24 [History] Magnesium Hydroxide [Milk of Magnesia Concentrate] 7,200 mg PO Q2D PRN MDD 2 days no BM 08/16/24 [History] Melatonin 3 mg PO HS@2100 08/16/24 [History] Menthol [Biofreeze] 1 applic TOPICAL HS PRN 08/16/24 [History] polyethylene glycoL 3350 [Miralax] 17 gm PO DAILY@0800 08/16/24 [History] Ferrous Sulfate [Iron (65 MG Elemental)] 325 mg PO DAILY 10/29/24 [History] Lactulose 20 gm PO DAILY 10/29/24 [History] Sennosides/Docusate Sodium [Senna Plus 8.6-50 mg Softgel] 1 cap PO BID 10/29/24 [History] HYDROcodone/APAP 7.5-325MG [Stafford 7.5-325] 1 tab PO Q6H PRN #12 tab 10/31/24 [Rx] cefuroxime axetiL [Ceftin] 500 mg PO BID #6 tab 10/31/24 [Rx] traMADol HCL 50 mg PO Q6H PRN #12 tab 10/31/24 [Rx] Follow up Appointment(s)/Referral(s): Jeffrey Balbuena DO [Primary Care Provider] - 1-2 days
[2024-10-31 14:27] VITALS: BP 127/71; PULSE 88; TEMP 98.2
--- NOTE | 2024-10-31 15:30 | CDI ---
Documentation Clarification Form Date: 10/31/2024 03:05:50 PM From: Anila Denson RN CCDS Phone: [phone] Admit Date: 10/29/2024 10:04:00 PM Patient Name: Fernando Harrison Visit Number: [id number] Discharge Date: ATTENTION: The Clinical Documentation Specialists (CDI) and [facility] Coding Staff appreciate your assistance in clarifying documentation. Please respond to the clarification below the line at the bottom and electronically sign. The CDI & [facility] Coding staff will review the response and follow-up if needed. Please note: Queries are made part of the Legal Health Record. If you have any questions, please contact the author of this message via ITS. Doctor: Sidney Fortune Sepsis is documented 10/30, , which may lack sufficient clinical evidence/support in the medical record. Additional clarification is requested. History/Risk Factors: 89 year old male presents to the ED via EMS from [facility] for worsening cough and hypoxia. Medical History: Dementia, CVA/TIA, GERD, HLD, HTN, Pneumonia and Barretts esophagus. 10/29 ED note. Clinical Indicators: VSS, 10/29: B/P 129/66, HR 87, Temp 100F Axillary, SpO2 93% ra LABS, 10/29: Wbc 16.08, Neutrophils 14.17, CXR, 10/30: Underlying infiltrate is difficult to exclude Treatment: 10/29 Acetaminophen IVPB x 1; Antibiotics: 10/29 Azithromycin IVPB x1, 10/30 Zithromax PO Daily x 2 doses. 10/29, Ceftriaxone ivpb x 1, 10/30 Ceftriaxone IVPB IVPB Q24H x 4 bags. Fluid: 0.9NS 1L IV x 1 After work up and study, please clarify which diagnosis is most appropriate? [ + ] Sepsis ruled out [ ] Sepsis treated prophylactically [ ] Sepsis is a valid diagnosis as evidence by the following: (Please add rationale): [ ] Other, please specify [ ] Unable to determine SIRS Criteria: 2 or more of the following may indicate SIRS Temperature < 96.8F (36C) or > 101.0F (38.3C) Heart Rate > 90 bpm Respiratory Rate > 20 breaths/min or PaCO2 < 32 mmHg White Blood Cell Count > 12,000 or < 4,000 cells/mm3 or > 10% bands (Template Last Reviewed: July 2023) MTDD
== END 2024-10-31 15:40 | DRG 177 ==
LOC: EC 18:11 → 4SSUR 22:04
PROVIDERS: ADMIT Hospitalist; ATTEND Hospitalist
DX: J69.0 Pneumonitis due to inhalation of food and vomit (principal); J96.01 Acute respiratory failure with hypoxia; E44.0 Moderate protein-calorie malnutrition; Z66 Do not resuscitate; F03.C4 Unspecified dementia, severe, with anxiety; I69.251 Hemiplegia and hemiparesis following other nontraumatic intracranial hemorrhage affecting right dominant side; I10 Essential (primary) hypertension; Z68.1 Body mass index [BMI] 19.9 or less, adult; I69.122 Dysarthria following nontraumatic intracerebral hemorrhage; N40.0 Benign prostatic hyperplasia without lower urinary tract symptoms; K22.70 Barrett's esophagus without dysplasia; L30.9 Dermatitis, unspecified; M62.431 Contracture of muscle, right forearm; R13.10 Dysphagia, unspecified; K21.9 Gastro-esophageal reflux disease without esophagitis; E78.5 Hyperlipidemia, unspecified; Z99.3 Dependence on wheelchair; Z87.891 Personal history of nicotine dependence; Z85.818 Personal history of malignant neoplasm of other sites of lip, oral cavity, and pharynx; Z79.899 Other long term (current) drug therapy; Z88.0 Allergy status to penicillin; Z87.01 Personal history of pneumonia (recurrent); Z91.81 History of falling
CPT/HCPCS: 36415; 70450; 71045; 80053; 81003; 82140; 82803; 83605; 83735; 84145; 85025; 85610; 85730; 87040; 87449; 87636; 93005; 96361; 96365; 96366; 96367; 99291